=== PATIENT | male | born 1935 | race Caucasian/White ===

== ENCOUNTER 2016-12-08 19:33 | Emergency (ER) | payer MEDICARE, OTHER ==
--- NOTE | 2016-12-08 19:55 | ER Document Report ---
ED GI/ - General Chief Complaint: Abnormal Lab Results Stated Complaint: ABNORMAL XRAYS Time Seen by Provider: 12/08/16 19:37 Notes: Patient is an 81-year-old male, past medical history cholecystectomy, colonoscopy [address] Gregory, presents with intermittent lower abdominal pain that lasts a few seconds and occurs about every [address] Case's office and had a outpatient CT abdomen pelvis with IV and oral contrast. His CT showed sigmoid volvulus with distended gas-filled sigmoid colon. He last ate at 08:00 today and only takes a baby ASA every other day (last took yesterday morning). He had small watery bowel movements today. Denies current pain, nausea, vomiting, urinary symptoms, chest pain or shortness of breath. TRAVEL OUTSIDE OF THE [place] IN LAST 30 DAYS: No - Related Data Allergies/Adverse Reactions: No Known Allergies Allergy (Verified 12/03/15 08:05) Past Medical History - General Information source: Patient - Social History Smoking Status: Unknown if Ever Smoked Family History: Reviewed & Not Pertinent - Past Medical History Cardiac Medical History: Reports: Hx Hypercholesterolemia, Hx Hypertension - LISINOPRIL Denies: Hx Coronary Artery Disease, Hx Heart Attack Pulmonary Medical History: Denies: Hx Asthma, Hx Bronchitis, Hx COPD, Hx Pneumonia Neurological Medical History: Denies: Hx Cerebrovascular Accident, Hx Seizures GI Medical History: Denies: Hx Hepatitis, Hx Hiatal Hernia, Hx Ulcer Musculoskeltal Medical History: Denies Hx Arthritis Infectious Medical History: Denies: Hx Hepatitis Past Surgical History: Reports: Hx Cardiac Catheterization, Hx Cholecystectomy, Hx Urinary Tract Surgery - prostate. Denies: Hx Open Heart Surgery, Hx Pacemaker - Immunizations Hx Diphtheria, Pertussis, Tetanus Vaccination: Yes Hx Pneumococcal Vaccination: 06/12/12 Review of Systems - Review of Systems Notes: REVIEW OF SYSTEMS: CONSTITUTIONAL: -fevers, -chills EENT: -eye pain, -difficulty swallowing, -nasal congestion CARDIOVASCULAR:-chest pain, -syncope. RESPIRATORY: -cough, -SOB GASTROINTESTINAL: +lower abdominal pain, -nausea, -vomiting GENITOURINARY: -dysuria, -hematuria MUSCULOSKELETAL: -back pain, -neck pain SKIN: -rash or skin lesions. HEMATOLOGIC: -easy bruising or bleeding. LYMPHATIC: -swollen, enlarged glands. NEUROLOGICAL: -altered mental status or loss of consciousness, -headache, - neurologic symptoms PSYCHIATRIC: -anxiety, -depression. ALL OTHER SYSTEMS REVIEWED AND NEGATIVE. Physical Exam - Vital signs Vitals: Temp Pulse Resp BP Pulse Ox 97.7 F 62 20 177/75 H 100 12/08/16 19:56 12/08/16 19:56 12/08/16 19:56 12/08/16 19:56 12/08/16 19:56 - Notes Notes: PHYSICAL EXAMINATION: GENERAL: Well-appearing, well-nourished and in no acute distress. HEAD: Atraumatic, normocephalic. EYES: Pupils equal round and reactive to light, extraocular movements intact, sclera anicteric, conjunctiva are normal. ENT: nares patent, oropharynx clear without exudates. Moist mucous membranes. NECK: Normal range of motion, supple without lymphadenopathy LUNGS: Breath sounds clear to auscultation bilaterally and equal. No wheezes rales or rhonchi. HEART: Regular rate and rhythm without murmurs ABDOMEN: Soft, nontender, normoactive bowel sounds. No guarding, no rebound. No masses appreciated. EXTREMITIES: Normal range of motion, no pitting or edema. No cyanosis. NEUROLOGICAL: Cranial nerves grossly intact. Normal speech, normal gait. Normal sensory and motor exams. PSYCH: Normal mood, normal affect. SKIN: Warm, Dry, normal turgor, no rashes or lesions noted. Course - Re-evaluation Re-evalutation: 12/08/16 19:[address] Schulz about confirmed sigmoid volvulus on outpatient CAT scan. He is requesting a KUB. Pt not currently in any pain and does not feel nauseous. 12/08/16 20:[address] 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 12/08/16 20:[address] Schulz (Surgery) and recommends transfer for decompression by GI. Spoke to patient and he would like to be transferred to [facility]. Called [facility] and awaiting callback. 12/08/16 21:05 Spoke to [facility] Hospitalist and he is requesting a call to Surgeon to see if Surgery will take primary on patient. 12/08/16 21:[address] Horton (Surgeon front office manager at [facility]). He does not perform endoscopies. 12/08/16 22:[address] Nielsen (call center analyst GI doctor at [facility]) and discussed case. He is unsure if this patient is a candidate for decompressive endoscopy but he will speak to the hospitalist. 12/08/16 23:[address] Waters ([facility] Hospitalist) and he has accepted patient. GI team is assembling for emergent decompression. No ground crew for ~6-8 hours available. Due to concern for ischemic bowel, will arrange air transportation. Pt HD stable at this time. 12/09/16 00:05 NGT advaced 5 cm per x-ray. - Vital Signs Vital signs: Temp Pulse Resp BP Pulse Ox 97.7 F 62 19 126/68 H 95 12/08/16 19:56 12/08/16 19:56 12/09/16 00:01 12/09/16 00:01 12/09/16 00:01 - Laboratory Result Diagrams: 12/08/16 20:08 12/08/16 20:08 Laboratory results interpreted by me: 12/08/16 12/08/16 20:08 20:08 Plt Count 108 L Potassium 3.5 L BUN 22 H Creatinine 1.32 H Est GFR (Non-Af Amer) 52 L Total Protein 6.2 L - Diagnostic Test Radiology reviewed: Image reviewed, Reports reviewed Radiology results interpreted by me: CT A/P w/ IV and oral: Sigmoid volvulus with distended gas-filled sigmoid colon. Several sub-centimeter low-attenuation lesions in the liver, difficult to fully evaluate but presumably due to small cysts. Similar lesions in the spleen could be small cysts or hemangiomas. Cortical cyst in the kidneys. No other acute findings. Critical Care Note - Critical Care Note Total time excluding time spent on procedures (mins): 55 Discharge - Discharge Clinical Impression: Sigmoid volvulus Condition: Stable Disposition: [facility]
--- NOTE | 2016-12-08 20:07 | RADIOLOGY REPORT (SQ) ---
EXAM DESCRIPTION: CHEST SINGLE VIEW COMPLETED DATE/TIME: 12/08/2016 7:58 pm REASON FOR STUDY: pre-op COMPARISON: None. EXAM PARAMETERS: NUMBER OF VIEWS: One view. TECHNIQUE: Single frontal radiographic view of the chest acquired. RADIATION DOSE: NA LIMITATIONS: None. FINDINGS: LUNGS AND PLEURA: No opacities, masses or pneumothorax. No pleural effusion. MEDIASTINUM AND HILAR STRUCTURES: No masses. Contour normal. HEART AND VASCULAR STRUCTURES: Heart normal in size. Normal vasculature. BONES: No acute findings. HARDWARE: None in the chest. OTHER: No other significant finding. IMPRESSION: NO ACUTE RADIOGRAPHIC FINDING IN THE CHEST. TECHNICAL DOCUMENTATION: JOB ID: [id number]
[2016-12-08] MEDS ORDERED: NORMAL SALINE 1000 ML 1,000 ML IV PRN (20:18)
[2016-12-08 20:20] LABS: ABSOLUTE BASOPHILS # (AUTO) 0.1 10^3/uL (0.0-0.2); ABSOLUTE LYMPHOCYTES (AUTO) 1.1 10^3/uL (0.5-4.7); ABSOLUTE MONOCYTES (AUTO) 0.6 10^3/uL (0.1-1.4); ABSOLUTE NEUT (AUTO) 4.7 10^3/uL (1.7-8.2); BASOPHILS % (AUTO) 0.9 % (0-2); EOSINOPHILS % (AUTO) 0.6 % (0-6); HEMOGLOBIN 13.9 g/dL (13.5-17.0); HGB HCT DIFFERENCE -0.3; LYMPHOCYTES % (AUTO) 16.7 % (13-45); MEAN CORPUSCULAR HEMOGLOBIN 31.3 pg (27.0-33.4); MEAN CORPUSCULAR HGB CONC 33.1 g/dL (32.0-36.0); MEAN CORPUSCULAR VOLUME 95 fl (80-97); MONOCYTES % (AUTO) 8.8 % (3-13); RED BLOOD COUNT 4.44 10^6/uL (4.35-5.55); RED CELL DISTRIBUTION WIDTH 13.7 % (11.5-14.0); WHITE BLOOD COUNT 6.5 10^3/uL (4.0-10.5)
--- NOTE | 2016-12-08 20:25 | RADIOLOGY REPORT (SQ) ---
EXAM DESCRIPTION: KUB/ABDOMEN (SINGLE VIEW) COMPLETED DATE/TIME: 12/08/2016 8:17 pm REASON FOR STUDY: abdominal pain COMPARISON: None. NUMBER OF VIEWS: One view. TECHNIQUE: Supine radiographic image of the abdomen acquired. LIMITATIONS: None. FINDINGS: BOWEL GAS PATTERN: Markedly dilated sigmoid colon which extends into the upper abdomen. CALCIFICATIONS: No suspicious calcifications. SOFT TISSUES: No gross mass or suggestion of organomegaly. HARDWARE: Surgical clips. BONES: No acute fracture. No worrisome bone lesions. OTHER: No other significant finding. IMPRESSION: MARKEDLY DILATED SIGMOID COLON EXTENDING INTO THE UPPER ABDOMEN, CONSISTENT WITH SIGMOID VOLVULUS. TECHNICAL DOCUMENTATION: JOB ID: [id number] [employer]- All Rights Reserved
[2016-12-08] MEDS ORDERED: NORMAL SALINE 1000 ML 1,000 ML IV ONE (20:26)
[2016-12-08 20:28] LABS: PARTIAL THROMBOPLASTIN TIME 29.8 SEC (23.5-35.8); PROTHROMBIN TIME 13.3 SEC (11.4-15.4)
[2016-12-08 20:32] LABS: ALANINE AMINOTRANSFERASE 35 U/L (21-72); ALBUMIN 3.6 g/dL (3.5-5.0); ALKALINE PHOSPHATASE 89 U/L (38-126); ANION GAP 10 (5-19); ASPARTATE AMINO TRANSFERASE 28 U/L (17-59); BILIRUBIN,DIRECT 0.2 mg/dL (0.0-0.4); BILIRUBIN,TOTAL 0.6 mg/dL (0.2-1.3); BLOOD UREA NITROGEN 22 mg/dL (7-20); CALCIUM 9.5 mg/dL (8.4-10.2); CARBON DIOXIDE 28 mmol/L (22-30); CHLORIDE 103 mmol/L (98-107); CREATININE RESULT 1.32 mg/dL (0.52-1.25); GLUCOSE 97 mg/dL (75-110); POTASSIUM 3.5 mmol/L (3.6-5.0); SODIUM 140.7 mmol/L (137-145); TOTAL PROTEIN 6.2 g/dL (6.3-8.2)
--- NOTE | 2016-12-08 20:47 | PDOC CONSULTATION ---
History of Present Illness Patient complains of: Abdominal pain History of Present Illness: GUSTAVO HEARN is a 81 year old male who presents with 1 day history of crampy lower abdominal pain occurring every few minutes. The pain is severe. He had a diarrheal bowel movement in the emergency department. No emesis. No fever. In between the episodes of crampy pain he is free of pain. He has had a colonoscopy last year and had polyps removed at that time. Past Medical History Cardiac Medical History: Reports: Hyperlipidema, Hypertension - LISINOPRIL Denies: Coronary Artery Disease, Myocardial Infarction Pulmonary Medical History: Denies: Asthma, Bronchitis, Chronic Obstructive Pulmonary Disease (COPD), Pneumonia Neurological Medical History: Denies: Seizures GI Medical History: Denies: Hepatitis, Hiatal Hernia Musculoskeltal Medical History: Denies: Arthritis Hematology: Denies: Anemia, Sickle Cell Disease Past Surgical History Past Surgical History: Reports: Cardiac Catheterization, Cholecystectomy Denies: Pacemaker Social History Smoking Status: Unknown if Ever Smoked Family History Family History: Reviewed & Not Pertinent Parental Family History Reviewed: No Children Family History Reviewed: No Sibling(s) Family History Reviewed.: No Medication/Allergy Home Medications: Aspirin [Ecotrin 81 mg EC Tablet] 81 mg PO DAILY 07/19/12 Cyanocobalamin (Vitamin B-12) [Vitamin B-12 SL 1000 mcg Tablet] 1,000 mcg SL DAILY 07/19/12 Lisinopril [Prinivil 20 mg Tablet] 20 mg PO DAILY 07/19/12 Multivitamin [Multiple Vitamins] 1 each PO DAILY 07/19/12 Pravastatin Sodium [Pravachol] 40 mg PO DAILY 07/19/12 Amlodipine Besylate [Norvasc 5 mg Tablet] 5 mg PO DAILY 01/14/13 Tolterodine Tartrate [Detrol LA] 4 mg PO DAILY 01/14/13 Finasteride [Proscar 5 mg Tablet] 5 mg PO DAILY 12/02/15 Tamsulosin HCl [Flomax] 0.4 mg PO DAILY 12/02/15 Allergies/Adverse Reactions: No Known Allergies Allergy (Verified 12/03/15 08:05) Physical Exam Vital Signs: Temp Pulse Resp BP Pulse Ox 97.7 F 62 20 177/75 H 100 12/08/16 19:56 12/08/16 19:56 12/08/16 19:56 12/08/16 19:56 12/08/16 19:56 Intake & Output 12/07/16 12/08/16 12/09/16 06:59 06:59 06:59 Weight 79.379 kg General appearance: PRESENT: no acute distress, cooperative Respiratory exam: PRESENT: clear to auscultation annabel Cardiovascular exam: PRESENT: RRR GI/Abdominal exam: PRESENT: other - Soft, minimally distended, nontender to palpation. Results Laboratory Results: 12/08/16 20:08 12/08/16 20:08 12/08/16 12/08/16 20:08 20:08 WBC 6.5 RBC 4.44 Hgb 13.9 Hct 42.0 MCV 95 MCH 31.3 MCHC 33.1 RDW 13.7 Plt Count 108 L Seg Neutrophils % 73.0 Lymphocytes % 16.7 Monocytes % 8.8 Eosinophils % 0.6 Basophils % 0.9 Absolute Neutrophils 4.7 Absolute Lymphocytes 1.1 Absolute Monocytes 0.6 Absolute Eosinophils 0.0 Absolute Basophils 0.1 Sodium 140.7 Potassium 3.5 L Chloride 103 Carbon Dioxide 28 Anion Gap 10 BUN 22 H Creatinine 1.32 H Est GFR ( Amer) > 60 Est GFR (Non-Af Amer) 52 L Glucose 97 Calcium 9.5 Total Bilirubin 0.6 AST 28 ALT 35 Alkaline Phosphatase 89 Total Protein 6.2 L Albumin 3.6 Impressions: Chest X-Ray 12/08/16 19:37 IMPRESSION: NO ACUTE RADIOGRAPHIC FINDING IN THE CHEST. KUB X-Ray 12/08/16 19:56 IMPRESSION: MARKEDLY DILATED SIGMOID COLON EXTENDING INTO THE UPPER ABDOMEN, CONSISTENT WITH SIGMOID VOLVULUS. Assessment & Plan - Diagnosis (1) Sigmoid volvulus Is this a current diagnosis for this admission?: YesPlan: Sigmoid volvulus is evident on CT scan. However he has no evidence of intestinal compromise by exam and laboratory studies. Patient would benefit from detorsion endoscopically. Unfortunately we have no gastroenterology coverage at this hospital today. I do not have any experience in colonoscopic detorsion. I have had a long discussion with the patient concerning options. I feel strongly that endoscopic detorsion is his best option at this time. Discussed my recommendation with the ER physician who will arrange transfer.
--- NOTE | 2016-12-08 21:44 | EKG REPORT ---
SEVERITY:- NORMAL ECG - SINUS RHYTHM : Confirmed by: Keely Contreras 08-Dec-2016 21:43:50
[2016-12-08] MEDS ORDERED: MIDAZOLAM 2 MG/2 ML INJ IV ONE (22:23)
--- NOTE | 2016-12-08 23:11 | RADIOLOGY REPORT (SQ) ---
EXAM DESCRIPTION: KUB/ABDOMEN (SINGLE VIEW) COMPLETED DATE/TIME: 12/08/2016 11:01 pm REASON FOR STUDY: Ng tube placement COMPARISON: 12/08/2016. NUMBER OF VIEWS: One view. TECHNIQUE: Supine radiographic image of the abdomen acquired. LIMITATIONS: None. FINDINGS: BOWEL GAS PATTERN: Prominent stool in the colon. Gas-filled distended sigmoid colon exten ding into the upper abdomen. CALCIFICATIONS: No suspicious calcifications. SOFT TISSUES: No gross mass or suggestion of organomegaly. HARDWARE: Tip of the nasogastric tube at the level of the gastroesophageal junction. Side hole proba mina in the distal esophagus. BONES: No acute fracture. No worrisome bone lesions. OTHER: No other significant finding. IMPRESSION: 1. NASOGASTRIC TUBE DESCRIBED. ADVANCEMENT BY ANOTHER 5 CM WOULD IMPROVE POSITIONING. 2. NO CHANGE IN APPEARANCE OF THE ABDOMEN. CONTINUED FINDINGS CONCERNING FOR SIGMOID VOLVULUS. TECHNICAL DOCUMENTATION: JOB ID: [id number] [employer]- All Rights Reserved
[2016-12-09 00:05] VITALS: BP 126/68
== END 2016-12-09 01:07 | disposition short-term general hospital (02) ==
LOC: ER 19:33
DX: K56.2 Volvulus (principal); K76.9 Liver disease, unspecified; D73.9 Disease of spleen, unspecified; Q61.01 Congenital single renal cyst; I10 Essential (primary) hypertension; Z79.82 Long term (current) use of aspirin; Z90.49 Acquired absence of other specified parts of digestive tract; Z98.890 Other specified postprocedural states; R63.4 Abnormal weight loss; R68.81 Early satiety; R10.31 Right lower quadrant pain; R10.32 Left lower quadrant pain
CPT/HCPCS: 93005; 99291; 96361; 96374; 86900; 86901; 36415; 86850; 85025; 85610; 85730; 80053; 82565; 83605; 71010; 74000; 74177; 93010; J2250; J7030

== ENCOUNTER → 2016-12-08 | Outpatient (CLI) | payer MEDICARE, OTHER ==
--- NOTE | 2016-12-08 19:13 | RADIOLOGY REPORT (SQ) ---
EXAM DESCRIPTION: CT ABD/PELVIS WITH IV ORAL COMPLETED DATE/TIME: 12/08/2016 7:01 pm REASON FOR STUDY: ABN WEIGHT LOSS/EARLY SATIETY/RIGHT AND LEFT QUADRANT PAIN R63.4 ABNORMAL WEIGHT LOSS R68.81 EARLY SATIETY R10.31 RIGHT LOWER QUADRANT PAIN COMPARISON: None. TECHNIQUE: CT scan of the abdomen and pelvis performed using helical scanning technique with dynamic intravenous contrast injection. No oral contrast. Images reviewed with lung, soft tissue, and bone windows. Reconstructed coronal and sagittal MPR images reviewed. Delayed images for evaluation of the urinary system also acquired. All images stored on PACS. All CT scanners at this facility use dose modulation, iterative reconstruction, and/or weight based d osing when appropriate to reduce radiation dose to as low as reasonably achievable (ALARA). [facility]: Dose Right [facility]: CareDose [facility]: Dose Right [facility]: Teradose 4D [facility]: [employer] CONTRAST TYPE AND DOSE: contrast/concentration: Isovue 370.00 mg/ml; Total Contrast Delivered: 85.0 ml; Total Saline Delivered: 50.0 ml 85.2 Isovue 370- low osmolar. RENAL FUNCTION: Creatinine and 1.4. RADIATION DOSE: Up-to-date CT equipment and radiation dose reduction techniques were employed. CTDIv ol: 7.3 - 10.4 mGy. DLP: 1005 mGy-cm.. LIMITATIONS: None. FINDINGS: LOWER CHEST: No significant findings. No nodules or infiltrates. LIVER: Normal size. Multiple subcentimeter low-attenuation lesions. No dilated ducts. SPLEEN: Normal size. Small subcentimeter low-attenuation lesions. PANCREAS: No masses. No significant calcifications. No adjacent inflammation or peripancreatic fluid collections. Pancreatic duct not dilated. GALLBLADDER: Surgically absent. ADRENAL GLANDS: No significant masses or asymmetry. RIGHT KIDNEY AND URETER: Cortical cysts. No solid masses. No significant calcifications. No hydr onephrosis or hydroureter. LEFT KIDNEY AND URETER: Cortical cysts. No solid masses. No significant calcifications. No hydro nephrosis or hydroureter. AORTA AND VESSELS: No aneurysm. No dissection. Renal arteries, SMA, celiac without stenosis. RETROPERITONEUM: No retroperitoneal adenopathy, hemorrhage or masses. BOWEL AND PERITONEAL CAVITY: Gas-filled distended sigmoid colon. The distal sigmoid has a swirled ap pearance on axial imaging suspicious for volvulus (series 3, images 52- 64). No free fluid or free a ir. APPENDIX: Not visualized. PELVIS: No mass or free fluid. Normal bladder. ABDOMINAL WALL: No masses. No hernias. BONES: No significant or acute findings. OTHER: No other significant finding. IMPRESSION: 1. SIGMOID VOLVULUS WITH DISTENDED GAS-FILLED SIGMOID COLON. 2. SEVERAL SUBCENTIMETER LOW-ATTENUATION LESIONS IN THE LIVER, DIFFICULT TO FULLY EVALUATE BUT PRESUM ABLY DUE TO SMALL CYSTS. SIMILAR LESIONS IN THE SPLEEN COULD BE SMALL CYSTS OR HEMANGIOMAS. 3. CORTICAL CYSTS IN THE KIDNEYS. 4. NO OTHER ACUTE FINDINGS. TECHNICAL DOCUMENTATION: JOB ID: [id number] Quality ID # [id number]: Final reports with documentation of one or more dose reduction techniques (e.g., Au tomated exposure control, adjustment of the mA and/or kV according to patient size, use of iterative reconstruction technique) 2010 [employer]- All Rights Reserved
== END ==
LOC: RAD 16:01
PROVIDERS: ATTEND Internal Medicine Gastroenterology
DX: R63.4 Abnormal weight loss (principal); R68.81 Early satiety; R10.31 Right lower quadrant pain; R10.32 Left lower quadrant pain; K56.2 Volvulus
CPT/HCPCS: 74177; 82565

== ENCOUNTER 2016-12-12 14:01 | Emergency (ER) | payer MEDICARE, OTHER ==
--- NOTE | 2016-12-12 15:23 | ER Document Report ---
ED Medical Screen (RME) - General Chief Complaint: Abdominal Pain Stated Complaint: ABDOMINAL PAIN Time Seen by Provider: 12/12/16 15:17 Notes: Patient is a pleasant 81-year-old male who presents with several hours of lower abdominal pain. He was seen in the ER 4 days ago was transferred to [facility] for endoscopic detorsion of a sigmoid volvulus. He was feeling much better and had a normal CAT scan the next day and was discharged. Patient says this feels less intense and he has not had a bowel movement for 2 days. He denies urinary symptoms, fevers, nausea, vomiting or rash. PE: mild LLQ tenderness, normal bowel sounds I have greeted and performed a rapid initial assessment of this patient. A comprehensive ED assessment and evaluation of the patient, analysis of test results and completion of the medical decision making process will be conducted by additional ED providers. TRAVEL OUTSIDE OF THE [place] IN LAST 30 DAYS: No - Related Data Allergies/Adverse Reactions: No Known Allergies Allergy (Verified 12/12/16 14:07) Past Medical History - Past Medical History Cardiac Medical History: Reports: Hx Hypercholesterolemia, Hx Hypertension - LISINOPRIL Denies: Hx Coronary Artery Disease, Hx Heart Attack Pulmonary Medical History: Denies: Hx Asthma, Hx Bronchitis, Hx COPD, Hx Pneumonia Neurological Medical History: Denies: Hx Cerebrovascular Accident, Hx Seizures Renal/ Medical History: Denies: Hx Peritoneal Dialysis GI Medical History: Denies: Hx Hepatitis, Hx Hiatal Hernia, Hx Ulcer Musculoskeltal Medical History: Denies Hx Arthritis Infectious Medical History: Denies: Hx Hepatitis Past Surgical History: Reports: Hx Cardiac Catheterization, Hx Cholecystectomy, Hx Urinary Tract Surgery - prostate. Denies: Hx Open Heart Surgery, Hx Pacemaker - Immunizations Hx Diphtheria, Pertussis, Tetanus Vaccination: Yes Physical Exam - Vital signs Vitals: Temp Pulse Resp BP Pulse Ox 98.3 F 82 12 165/76 H 95 12/12/16 14:07 12/12/16 14:12/12/16 14:12/12/16 14:12/12/16 14:07 Course - Vital Signs Vital signs: Temp Pulse Resp BP Pulse Ox 98.3 F 82 12 165/76 H 95 12/12/16 14:07 12/12/16 14:07 12/12/16 14:07 12/12/16 14:07 12/12/16 14:07
[2016-12-12 15:59] LABS: ABSOLUTE LYMPHOCYTES (AUTO) 0.9 10^3/uL (0.5-4.7); ABSOLUTE MONOCYTES (AUTO) 0.5 10^3/uL (0.1-1.4); ABSOLUTE NEUT (AUTO) 4.8 10^3/uL (1.7-8.2); BASOPHILS % (AUTO) 0.5 % (0-2); EOSINOPHILS % (AUTO) 0.5 % (0-6); HEMATOCRIT 44.6 % (37.9-51.0); HEMOGLOBIN 14.8 g/dL (13.5-17.0); HGB HCT DIFFERENCE -0.2; LYMPHOCYTES % (AUTO) 13.9 % (13-45); MEAN CORPUSCULAR HEMOGLOBIN 31.1 pg (27.0-33.4); MEAN CORPUSCULAR HGB CONC 33.1 g/dL (32.0-36.0); MEAN CORPUSCULAR VOLUME 94 fl (80-97); MONOCYTES % (AUTO) 8.2 % (3-13); RED BLOOD COUNT 4.74 10^6/uL (4.35-5.55); RED CELL DISTRIBUTION WIDTH 13.9 % (11.5-14.0); SEGMENTED NEUTROPHILS % (AUTO) 76.9 % (42-78); WHITE BLOOD COUNT 6.3 10^3/uL (4.0-10.5)
[2016-12-12 16:13] LABS: ALANINE AMINOTRANSFERASE 51 U/L (21-72); ALBUMIN 3.6 g/dL (3.5-5.0); ALKALINE PHOSPHATASE 103 U/L (38-126); ANION GAP 7 (5-19); ASPARTATE AMINO TRANSFERASE 21 U/L (17-59); BILIRUBIN,DIRECT 0.3 mg/dL (0.0-0.4); BILIRUBIN,TOTAL 0.6 mg/dL (0.2-1.3); BLOOD UREA NITROGEN 15 mg/dL (7-20); CALCIUM 9.4 mg/dL (8.4-10.2); CARBON DIOXIDE 33 mmol/L (22-30); CHLORIDE 103 mmol/L (98-107); CREATININE RESULT 1.13 mg/dL (0.52-1.25); GLUCOSE 107 mg/dL (75-110); POTASSIUM 3.9 mmol/L (3.6-5.0); SODIUM 143.1 mmol/L (137-145); TOTAL PROTEIN 6.3 g/dL (6.3-8.2)
--- NOTE | 2016-12-12 16:24 | RADIOLOGY REPORT (SQ) ---
EXAM DESCRIPTION: KUB/ABDOMEN (SINGLE VIEW) COMPLETED DATE/TIME: 12/12/2016 4:06 pm REASON FOR STUDY: lower abdominal pain COMPARISON: 12/08/2016 NUMBER OF VIEWS: One view. TECHNIQUE: Supine radiographic image of the abdomen acquired. LIMITATIONS: None. FINDINGS: Oral contrast in the ascending colon, descending colon and rectosigmoid colon. Cecum not dilated. Persistent dilated loop of ahaustral bowel in the mid lower abdomen. IMPRESSION: Intermittent sigmoid volvulus. No high-grade obstruction.
--- NOTE | 2016-12-12 16:27 | ER Document Report ---
ED GI/ - General Chief Complaint: Abdominal Pain Stated Complaint: ABDOMINAL PAIN Time Seen by Provider: 12/12/16 15:17 Mode of Arrival: Ambulatory Information source: Patient Notes: 81-year-old male who suffers from constipation is complaining of low abdominal crampy intermittent pain 3/5 since 7:00 this morning. He was seen and sent to [facility] on December 09 with a volvulus., Dr. Nielsen did a colonoscopy on Monday and his pain resolved. They repeated a CT scan Monday afternoon which showed resolution and was sent home Monday. He started MiraLAX 1 capful this morning. no nausea Or vomiting. The pain is much less than , which was sharp, constant 5/5. No fever. TRAVEL OUTSIDE OF THE [place] IN LAST 30 DAYS: No - Related Data Allergies/Adverse Reactions: No Known Allergies Allergy (Verified 12/12/16 14:07) Past Medical History - General Information source: Patient - Social History Smoking Status: Unknown if Ever Smoked Frequency of alcohol use: None Drug Abuse: None Lives with: Spouse/Significant other Family History: Reviewed & Not Pertinent Patient has suicidal ideation: No Patient has homicidal ideation: No - Past Medical History Cardiac Medical History: Reports: Hx Hypercholesterolemia, Hx Hypertension - LISINOPRIL Renal/ Medical History: Denies: Hx Peritoneal Dialysis Past Surgical History: Reports: Hx Cardiac Catheterization, Hx Cholecystectomy, Hx Urinary Tract Surgery - prostate - Immunizations Hx Diphtheria, Pertussis, Tetanus Vaccination: Yes Hx Pneumococcal Vaccination: 06/12/12 Review of Systems - Review of Systems Constitutional: No symptoms reported EENT: No symptoms reported Cardiovascular: No symptoms reported Respiratory: No symptoms reported Gastrointestinal: See HPI Genitourinary: No symptoms reported Male Genitourinary: No symptoms reported Musculoskeletal: No symptoms reported Skin: No symptoms reported Hematologic/Lymphatic: No symptoms reported Neurological/Psychological: No symptoms reported Physical Exam - Vital signs Vitals: Temp Pulse Resp BP Pulse Ox 98.3 F 82 12 165/76 H 95 12/12/16 14:07 12/12/16 14:07 12/12/16 14:07 12/12/16 14:07 12/12/16 14:07 Interpretation: Normal - General General appearance: Appears well, Alert - HEENT Head: Normocephalic, Atraumatic Eyes: Normal Pupils: PERRL Neck: Supple. No: Lymphadenopathy - Respiratory Respiratory status: No respiratory distress Chest status: Nontender Breath sounds: Normal Chest palpation: Normal - Cardiovascular Rhythm: Regular Heart sounds: Normal auscultation Murmur: No - Abdominal Inspection: Normal Distension: No distension Bowel sounds: Normal Tenderness: Nontender. No: Tender Organomegaly: No organomegaly. No: Hepatomegaly, Splenomegaly - Back Back: Normal, Nontender. No: CVA tenderness - Extremities General upper extremity: Normal inspection, Nontender, Normal color, Normal ROM , Normal temperature General lower extremity: Normal inspection, Nontender, Normal color, Normal ROM , Normal temperature, Normal weight bearing. No: Kady's sign - Neurological Neuro grossly intact: Yes Cognition: Normal Orientation: AAOx4 Brian Coma Scale Eye Opening: Spontaneous Doran Coma Scale Verbal: Oriented Doran Coma Scale Motor: Obeys Commands Brian Coma Scale Total: 15 Speech: Normal Motor strength normal: LUE, RUE, LLE, RLE Sensory: Normal - Psychological Associated symptoms: Normal affect, Normal mood - Skin Skin Temperature: Warm Skin Moisture: Dry Skin Color: Normal Course - Re-evaluation Re-evalutation: 12/12/16 16:[address] Braden when he wrote intermittent sigmoid volvulus on the KUB. He recommended getting a prone KUB to see if the dilated loop of bowel resolved. If it does resolve on the prone KUB it indicates there is no sigmoid volvulus. If the dilated loop persists repeat a noncontrasted CT of the abdomen. 12/12/16 17:45 prone KUB still indicates sigmoid colon volvulus per dr. jesus radiologist. I called him and he states that the non contrast CT rec by dr. Braden would not be helpful at this point. Consult dr. Mathew. 12/12/16 18:19 dr. mathew recommends consulting with Dr. Gregory. Dr. Gregory will see the patient in the emergency department. 12/12/16 19:00 Dr. Gregory is seen the patient and advised that he will need a resection but the patient and his do not want to have that tonight. He instructed the patient to be on a liquid diet, continue MiraLAX, and start Colace twice a day, patient understands to return to the emergency room if the pain gets worse, any vomiting, any fever. - Vital Signs Vital signs: Temp Pulse Resp BP Pulse Ox 98.3 F 82 12 165/76 H 95 12/12/16 14:07 12/12/16 14:07 12/12/16 14:07 12/12/16 14:07 12/12/16 14:07 - Laboratory Result Diagrams: 12/12/16 15:44 12/12/16 15:44 Laboratory results interpreted by me: 12/12/16 12/12/16 15:44 15:44 Plt Count 128 L Carbon Dioxide 33 H Discharge - Discharge Clinical Impression: Volvulus of sigmoid colon Condition: Stable Disposition: HOME, SELF-CARE Instructions: Abdominal Pain ([facility]) Additional Instructions: Return to the emergency room if increased pain, vomiting, fever, concerns Schedule follow-up appointment with Dr. Gregory for surgical bowel resection Liquid diet MiraLAX capful with full glass of water daily Softener Colace 100 mg twice a day Please complete the patient satisfaction survey if you get one, and return it.. If you do not receive a survey, then you can go to the [facility] website, [email or web address] and place your comments about your very good care. Thank you very much. It was a pleasure being your medical provider today. Prescriptions: Docusate Sodium [Colace 100 mg Capsule] 100 mg PO BID #60 capsule Polyethylene Glycol 3350 [Miralax] 1 cap PO DAILY #1 bot Referrals: JUAN A GREGORY MD [ACTIVE STAFF] - Follow up as needed
[2016-12-12 16:45] LABS: APPEARANCE,URINE SLIGHTLY-CLOUDY; BILIRUBIN,URINE NEGATIVE (NEGATIVE); GLUCOSE, URINE NEGATIVE (NEGATIVE); KETONES,URINE NEGATIVE (NEGATIVE); LEUKOCYTE ESTERASE,URINE NEGATIVE (NEGATIVE); NITRITE,URINE NEGATIVE (NEGATIVE); PROTEIN,URINE NEGATIVE (NEGATIVE); UROBILINOGEN,URINE NEGATIVE mg/dL (<2.0)
--- NOTE | 2016-12-12 17:12 | RADIOLOGY REPORT (SQ) ---
EXAM DESCRIPTION: KUB/ABDOMEN (SINGLE VIEW) COMPLETED DATE/TIME: 12/12/2016 4:55 pm REASON FOR STUDY: prone view per dr. carrera, ? resolution COMPARISON: None. NUMBER OF VIEWS: 12/12/2016 12/08/2016 TECHNIQUE: Supine radiographic image of the abdomen acquired. LIMITATIONS: None. FINDINGS: BOWEL GAS PATTERN: There is a dilated loop of sigmoid colon. Contrast is seen in a normal caliber transverse colon and in the distal sigmoid colon. CALCIFICATIONS: No suspicious calcifications. SOFT TISSUES: No gross mass or suggestion of organomegaly. HARDWARE: None in the abdomen. BONES: No acute fracture. No worrisome bone lesions. OTHER: No other significant finding. IMPRESSION: The appearance continues to suggest sigmoid volvulus. The proximal colon is not signifi cantly dilated, suggesting that this does not represent a high-grade obstruction. TECHNICAL DOCUMENTATION: JOB ID: [id number] [employer]- All Rights Reserved
[2016-12-12] MEDS ORDERED: DOCUSATE SODIUM 100 MG CAPSULE PO ONE (19:03)
[2016-12-12 19:29] VITALS: BP 176/79
--- NOTE | 2016-12-12 19:48 | CONSULTATION REPORT E ---
Consultation Report NAME: GUSTAVO HEARN : 1935 AGE: 81Y DATE: 12/12/2016 TO: JUAN A GREGORY M.D. FROM: Donna DOTY Requesting Physician CHIEF COMPLAINT: Sigmoid volvulus. REPORT OF CONSULTATION: The patient is an 81-year-old white male with a history of multiple previous colonoscopies, who was seen at our emergency department at [facility] approximately 3 days ago complaining of crampy abdominal pain, intermittent stools, diarrhea. He was found by CT scan of the abdomen and pelvis as well as conventional x-ray imaging to have a partial sigmoid volvulus without an acute abdomen. He was sent from [facility] to [facility] where he underwent colonoscopic decompression by Dr. Nielsen, technical stenographer. He was sent home Monday morning after imaging showed clinical improvement in his volvulus. He was started on MiraLAX and did well for several days until this morning. He started to have crampy abdominal pain and decreased stool. He was seen in the emergency department where he was evaluated and found to have evidence of persisting of sigmoid colonic dilatation without evidence of high-grade obstruction. Surgery was consulted. Past medical and surgical history can be found in his permanent record. ALLERGIES: None. PAST SURGICAL HISTORY: Significant for: 1. Cardiac catheterization. 2. Cholecystectomy. REVIEW OF SYSTEMS: As per HPI. All other systems unremarkable. PHYSICAL EXAMINATION: VITAL SIGNS: Stable. GENERAL: The patient is in no acute distress. HEAD: Eyes without icterus. NECK: No adenopathy. LUNGS: Diminished at the bases bilaterally. HEART: Without murmur or gallop. ABDOMEN: Minimally distended. No peritoneal signs. No rigidity. No tympany. RECTAL: Exam not performed. DIAGNOSTIC DATA: Imaging studies reviewed as stated above. Degree of colonic distention diminished compared to last Monday prior to colonoscopic decompression. 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 RECOMMENDATIONS: 1. The patient does not need emergent intervention tonight. 2. I reviewed the pathoanatomy with the patient and his . Given the patient's high functional status and highly dysfunctional sigmoid colon now with a volvulus, I believe he would benefit from interval sigmoid colectomy. 3. I encouraged the patient to stay on full liquids, MiraLAX, and Colace 100 mg p.o. b.i.d. 4. The patient can follow up with Dr. Gregory or Hafsa Massey per his wishes to discuss definitive management, mainly a sigmoid colon resection. 5. If the patient develops acute abdominal pain, he is to come to the emergency department for immediate intervention as he would likely require emergent sigmoid colectomy and colostomy; all of the above explained to the patient. I believe he and his understand and agree to proceed. DICTATING PHYSICIAN: JUAN A GREGORY M.D. [id number] PHY#: [id number] ID: [id number] JOB#: [id number] ACCT: [id number] cc:JUAN A GREGORY M.D. >
== END 2016-12-12 19:31 | disposition home or self-care (01) ==
LOC: ER 14:01
DX: K56.2 Volvulus (principal); R10.30 Lower abdominal pain, unspecified; I10 Essential (primary) hypertension; E78.00 Pure hypercholesterolemia, unspecified; Z90.49 Acquired absence of other specified parts of digestive tract
CPT/HCPCS: 99284; 36415; 85025; 80053; 81001; 74000; A9270

== ENCOUNTER 2016-12-19 06:53 | Inpatient (IN) | payer MEDICARE, OTHER ==
[~2016-12-19 06:53] MED LIST: AMPICILLIN SODIUM/SULBACTAM NA 3 GM in NORMAL SALINE 100 ML IV PRN; LACTATED RINGERS 1000 ML IV PRN
[2016-12-19] MEDS ORDERED: BUPIVACAINE HCL 0.25 % INJ/PF (2.5 MG/1 ML) 30 ML VIAL ONE (07:20)
[2016-12-19] MEDS ORDERED: BUPIVACAINE INJ/PF LIPOSOME/PF 266 MG/20 ML SDV ONE (07:21)
[2016-12-19] MEDS ORDERED: FENTANYL CITRATE INJ/PF 250 MCG/5 ML AMPULE ONE (09:35)
[2016-12-19] MEDS ORDERED: MIDAZOLAM 2 MG/2 ML INJ ONE (09:35)
[2016-12-19] MEDS ORDERED: PROPOFOL INJ 200 MG/20 ML VIAL IV ONE (09:36)
[2016-12-19] MEDS ORDERED: IBUPROFEN INJ 800 MG/8 ML VIAL IV ONE (11:26)
[2016-12-19] MEDS ORDERED: MORPHINE SULFATE 10 MG/ML INJ ONE (11:27)
[2016-12-19] MEDS ORDERED: ONDANSETRON HCL INJ/PF 4 MG/2 ML SDV IV PRN (13:21)
--- NOTE | 2016-12-19 13:41 | Operative Report ---
Operative Report DATE OF SURGERY: 12/19/16 PREOPERATIVE DIAGNOSIS: 1. Sigmoid volvulus, chronic, with acute decompensation POSTOPERATIVE DIAGNOSIS: 1. Acute sigmoid volvulus with ischemia. 2. 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 3. Granular nodules of splenic capsule OPERATION: 1. Exploratory laparotomy. 2. Total abdominal colectomy, open, with splenic flexure mobilization and takedown, and hepatic flexure mobilization and takedown. 3. Ileostomy. 4. Splenic capsule biopsy SURGEON: JUAN A MAZARIEGOS BEAUTY SPECIALIST: MEKHI GALICIA ANESTHESIA: GA TISSUE REMOVED OR ALTERED: Total abdominal colon and splenic capsule biopsy COMPLICATIONS: None ESTIMATED BLOOD LOSS: 200 cc INTRAOPERATIVE FINDINGS: See below PROCEDURE: The patient was taken from ambulatory surgery preop holding area to the main operating room where general anesthesia was induced. A Ames catheter was inserted with minimal amount of dark urine. The abdomen was exposed, prepped and draped in sterile fashion with the arms abducted. Surgical plan surgical timeout were conducted The initial strategy was to perform open sigmoid colectomy, with possible colostomy versus primary anastomosis pending intraoperative findings. The abdomen was opened for standard midline incision above and below the umbilicus. Immediately upon entering the peritoneal cavity, the massively distended sigmoid colon was exteriorized from the peritoneal cavity. The colon was extremely dilated, volvulized nearly 270, with ischemic changes. We immediately detorsed the colon, then identified a suitable site for transection of the sigmoid colon proximally which was dilated but not massively so, and chose to divide the sigmoid colon with a FRITZ-75 blue load stapler. The sigmoid mesocolon was taken down between clamps, then a suitable site for transection of the upper rectum was chosen and this was cleared by electrocautery and then a second firing of the FRITZ 75 stapler was used to transect the upper rectum from the lower sigmoid colon. The specimen was passed off to pathology after taking photos on the back table. We ligated all 4 pedicles with 0 Vicryl suture. We now established Bookwalter retractor for optimal visualization of the peritoneal cavity and extended our midline incision for the towards the xiphoid process. This now revealed negative dilation of the right and transverse colon. In this 81-year-old male with toxic sigmoid colon, and megacolon of the right and transverse colon, I felt that a total colectomy was in his best interest. The colon was taken out in a continuous fashion, but completely intact. We mobilized the transverse colon off of the gastrocolic omentum with electrocautery, and LigaSure device. The hepatic flexure was taken down under direct visualization using similar devices. The right colon was taken off of the white line of Toldt which was very distorted due to the distention. We then found a suitable site for division of the terminal ileum just prior to the ileocecal valve and the transection was performed with the third firing of the FRITZ 75 stapler. We then took down the right medial colon between clamps, and 0 Vicryl ties as well as LigaSure energy device. We now began mobilizing the transverse colon taking again it close the bowel wall. We repositioned graspers frequently to optimize exposure. I now mobilized the sigmoid colon opening up the white line of Toldt and taking it all the way up the descending colon. Of note there was no evidence of tumor , stricture or perforation. However even the descending colon was dilated but nowhere near as much as the transverse colon and right colon. The splenic flexure was taken down in a similar fashion and now the final attachments between the gastrocolic omentum and the splenic flexure were taken down. The transverse and left mesocolon was divided between clamps, and 0 Vicryl ties. The final specimen was passed off to the back table photographed and then sent to pathology intact without spillage. There was extensive nodularity on the surface of the splenic capsule. There was a minimal changes to the liver capsule but the splenic capsular findings were more prominent and so a very small biopsy was taken using a 15 blade and pickups. This was a white speckled granulomatous like process. Bleeding was negligible We confirmed excellent position of the nasogastric tube with anesthesia and that was secured. The findings were significant for previous cholecystectomy. Small bowel was in excellent shape without any evidence of significant distention. We now turned our attention to the pelvis. The rectal stump was extremely dilated and there were 2 areas of whitish discoloration consistent with ischemia. The rest of the staple line and surrounding tissue appeared viable Dr. Gregory scrubbed out and came down from below and did a rectal exam which showed some narrowing of the anal sphincter. Eventually was able to it introduced to adult fingers into the anorectal canal. There was a significant amount of heavy particulate stool which we irrigated out with multiple washings using a Alia syringe and suction. I was now able to perform rigid sigmoidoscopy and we found the length of the rectal stump to be approximately 20 cm. However careful examination of the anterior rectal stump revealed moderate ulceration with some whitish plaque. The serosal side seemed to be improving in color during the course of the operation, however is concerned about the mucosal side and this occupied an area of approximately 2 x 4 cm. Anatomically the staple line was above the peritoneal reflection by several centimeters. I carefully considered performing a stapled ilio-rectal anastomosis but in this 81-year-old male, now sick with a toxic megacolon, and a questionable area of viability to the rectal stump, I felt that a ileostomy would be safer and so this was accomplished. A suitable site for creation of the ileostomy was chosen in the right anterior abdominal wall. Skin was opened up for the appropriate size ileostomy using a Estelita clamp and electrocautery. The anterior and posterior rectus sheath was divided with the cautery and 2 index fingers were used to spread the abdominal wall musculature. The terminal ileum was brought up to the anterior abdominal wall, and I closed the lateral defect by approximating the retroperitoneum and terminal ileal mesentery to the anterior and lateral abdominal wall so as to reduce the risk of herniation or volvulus around the ileostomy. The increased space of the peritoneal cavity generated by the evacuation of the entire colon was the reason for this pexing of the mesentery to the abdominal wall. Sponge and needle counts are correct. Bleeding was negligible. A drain was not felt to be indicated. The abdominal wall was closed with 2 double-stranded #1 PDS sutures, clemente, and the ileostomy was matured after opening it up with cautery, suctioning out significant amount of small bowel contents in particular matter, and affixing the mucosa to the dermis with multiple 4-0 Vicryl sutures. Appropriate sized appliance and bag were applied. Postop procedure well, taken to the recovery room in stable condition, intubated. The physician lab assistant, Ms. Galicia, provided assistance during this case by: Assisting , retracting tissue, instillation of local anesthesia and closure of skin incisions.
[2016-12-19] MEDS ORDERED: PROPOFOL 100 ML IV ONE (13:44)
[2016-12-19] MEDS ORDERED: PHENYLEPHRINE HCL INJ/PF 10 MG/1 ML SDV ONE (14:39)
[2016-12-19] MEDS ORDERED: ONDANSETRON HCL INJ/PF 4 MG/2 ML SDV ONE (14:39)
[2016-12-19] MEDS ORDERED: ROCURONIUM BROMIDE INJ 50 MG/5 ML VIAL IV ONE (14:39)
[2016-12-19] MEDS ORDERED: SUCCINYLCHOLINE CHLORIDE INJ 200 MG/10 ML VIAL ONE (14:39)
[2016-12-19] MEDS ORDERED: GLYCOPYRROLATE INJ 0.4 MG/2 ML VIAL ONE (14:39)
[2016-12-19] MEDS ORDERED: METOCLOPRAMIDE HCL INJ/PF 10 MG/2 ML SDV ONE (14:39)
[2016-12-19] MEDS ORDERED: LIDOCAINE 2% INJ-PF (20 MG/ML) 10 ML AMPUL ONE (14:39)
[2016-12-19] MEDS ORDERED: NORMAL SALINE 1000 ML 1,000 ML IV ONE (15:53)
--- NOTE | 2016-12-19 16:31 | RADIOLOGY REPORT (SQ) ---
EXAM DESCRIPTION: CHEST SINGLE VIEW COMPLETED DATE/TIME: 12/19/2016 4:16 pm REASON FOR STUDY: post ET tube COMPARISON: 12/08/2016. EXAM PARAMETERS: NUMBER OF VIEWS: One view. TECHNIQUE: Single frontal radiographic view of the chest acquired. RADIATION DOSE: NA LIMITATIONS: None. FINDINGS: LUNGS AND PLEURA: Faint atelectasis in the right base. Atelectasis versus infiltrate in t he left base. No masses or pneumothorax. No pleural effusion. MEDIASTINUM AND HILAR STRUCTURES: No masses. Contour normal. HEART AND VASCULAR STRUCTURES: Heart normal in size. Normal vasculature. BONES: No acute findings. HARDWARE: Endotracheal tube with the tip located 6 cm proximal to the sammy. Nasogastric tube with the tip in the stomach. OTHER: No other significant finding. IMPRESSION: 1. HARDWARE APPEARS TO BE IN SATISFACTORY POSITION. 2. FAINT ATELECTASIS IN THE RIGHT BASE. ATELECTASIS VERSUS INFILTRATE IN THE LEFT BASE. TECHNICAL DOCUMENTATION: JOB ID: [id number]
[2016-12-19] MEDS ORDERED: NORMAL SALINE 500 ML IV ONE ×2 (17:00→23:15)
[2016-12-19] MEDS: AMPICILLIN SODIUM/SULBACTAM NA 3 GM in NORMAL SALINE 100 ML IV SCH (17:22)
[2016-12-19] MEDS ORDERED: AMPICILLIN SODIUM/SULBACTAM NA 3 GM in NORMAL SALINE 100 ML IV SCH (18:00)
[2016-12-19] MEDS: DEXTROSE 5%-LACTATED RINGERS 1,000 ML IV PRN (21:13)
[2016-12-20] MEDS ORDERED: DOPAMINE HCL/DEXTROSE 5%-WATER 800 MG/250 ML RTUINJ IV ONE (00:46)
[2016-12-20] MEDS: PROPOFOL 100 ML IV PRN ×2 (01:05→15:59)
[2016-12-20] MEDS ORDERED: DOPAMINE HCL 800 MG/D5W 250 ML IV PRN (01:13)
[2016-12-20] MEDS ORDERED: NOREPINEPHRINE BITARTRATE INJ/PF 4 MG/4 ML SDV IV ONE ×2 (01:28→06:53)
[2016-12-20] MEDS: AMPICILLIN SODIUM/SULBACTAM NA 3 GM in NORMAL SALINE 100 ML IV SCH ×2 (01:47→09:44)
[2016-12-20 02:08] LABS: ANION GAP 6 (5-19); BLOOD UREA NITROGEN 53 mg/dL (7-20); CALCIUM 7.9 mg/dL (8.4-10.2); CARBON DIOXIDE 30 mmol/L (22-30); CHLORIDE 104 mmol/L (98-107); CREATININE RESULT 1.97 mg/dL (0.52-1.25); GLUCOSE 138 mg/dL (75-110); MAGNESIUM 1.9 mg/dL (1.6-2.3); POTASSIUM 3.3 mmol/L (3.6-5.0); SODIUM 139.7 mmol/L (137-145)
[2016-12-20] MEDS ORDERED: NORMAL SALINE 1000 ML 1,000 ML IV ONE (02:30)
[2016-12-20] MEDS ORDERED: POTASSI CL 20 MEQ/50 ML RIDER 20 MEQ/50 ML RTUPB IV ONE (02:37)
[2016-12-20] MEDS: POTASSIUM CHLORIDE 20 MEQ/50 ML RTU IV SCH ×3 (03:07→06:56)
[2016-12-20] MEDS: DEXTROSE 5%-LACTATED RINGERS 1,000 ML IV PRN ×5 (04:05→23:44)
[2016-12-20] MEDS: DEXTROSE 5%-WATER 250 ML with NOREPINEPHRINE BITARTRATE 4 MG IV PRN ×10 (06:55→23:43)
[2016-12-20 07:29] LABS: HEMATOCRIT 39.1 % (37.9-51.0); HEMOGLOBIN 12.9 g/dL (13.5-17.0); HGB HCT DIFFERENCE -0.4; MEAN CORPUSCULAR HEMOGLOBIN 31.5 pg (27.0-33.4); MEAN CORPUSCULAR HGB CONC 32.9 g/dL (32.0-36.0); MEAN CORPUSCULAR VOLUME 96 fl (80-97); RED BLOOD COUNT 4.08 10^6/uL (4.35-5.55); RED CELL DISTRIBUTION WIDTH 14.3 % (11.5-14.0); WHITE BLOOD COUNT 23.5 10^3/uL (4.0-10.5)
[2016-12-20 07:39] LABS: ANION GAP 5 (5-19); BLOOD UREA NITROGEN 46 mg/dL (7-20); CALCIUM 8.1 mg/dL (8.4-10.2); CARBON DIOXIDE 27 mmol/L (22-30); CHLORIDE 106 mmol/L (98-107); CREATININE RESULT 1.84 mg/dL (0.52-1.25); GLUCOSE 176 mg/dL (75-110); POTASSIUM 3.6 mmol/L (3.6-5.0); SODIUM 138.3 mmol/L (137-145); TRIGLYCERIDES 41 mg/dL (<150)
--- NOTE | 2016-12-20 09:47 | PDOC CONSULTATION ---
Consultation Consult Date: 12/20/16 Attending physician:: JUAN A CUEVA Consult reason:: Renal insufficiency, hypertension and hyperlipidemia. History of Present Illness Admission Date/PCP: 12/19/16 06:53 ANJALI AVENDANO MD Patient complains of: Abdominal pain History of Present Illness: GUSTAVO HEARN is a 81 year old male, with history of hypertension, hyperlipidemia, atherosclerotic vascular disease has been dealing with abdominal pain for several days. The patient was healthy according to the spouse who is at bedside. Patient is intubated, on diprivan drip, and unable to give information. Unobtainable from the patient therefore family provided most of the history. Patient was doing well playing golf up until this weekend patient started to develop recurrence of abdominal pain where patient had a few visits in the emergency room in the past where a CT scan showed sigmoid volvulus with gaseous distention of the colon, and patient had endoscopic decompression in [facility] [place]. Patient is being followed by surgical service and as the patient's recurrent abdominal pain the patient occurred was advised to go to the hospital, and eventually underwent exploratory laparotomy. 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 Patient had a total colectomy with ileostomy placement and splenic biopsy. Patient was maintained on mechanical ventilator postoperatively, was hypotensive requiring vasopressors including dopamine and Levophed. Currently he is only on Levophed. Patient was given 9- 10 L of IV fluid resuscitation. There is no respiratory distress or discomfort noted. Patient's creatinine was noted to be elevated, consultation was made for evaluation and follow-up. Past Medical History Cardiac Medical History: Reports: Hyperlipidema - ON MEDS, Hypertension - ON MEDS, Other - Atherosclerotic vascular disease Denies: Atrial Fibrillation, Congestive Heart Failure, Coronary Artery Disease, Myocardial Infarction, Peripheral Vascular Disease, Heart Murmur Pulmonary Medical History: Neurological Medical History: Renal/ Medical History: Reports: Other - BPH Denies: End Stage Renal Disease Malignancy Medical History: GI Medical History: Reports: Gastroesophageal Reflux Disease Denies: Crohn's Disease, Hepatitis, Hiatal Hernia Musculoskeltal Medical History: Hematology: Past Surgical History Past Surgical History: Reports: Cardiac Catheterization, Carotid Endarterectomy - Right, Cholecystectomy, Other - Exploratory laparotomy with total colectomy and splenic biopsy, Denies: Appendectomy, Colostomy, Coronary Artery Bypass Graft, Gastric Bypass Surgery, Herniorrhaphy, Pacemaker, Tonsillectomy Social History Information Source: Relative Smoking Status: Former Smoker Frequency of Alcohol Use: Occasional Hx Recreational Drug Use: No Drugs: None Hx Prescription Drug Abuse: No Family History Family History: Malignancy - Colon cancer Parental Family History Reviewed: Yes Children Family History Reviewed: Yes Sibling(s) Family History Reviewed.: Yes Medication/Allergy Home Medications: Aspirin [Ecotrin 81 mg EC Tablet] 81 mg PO ASDIR 07/19/12 Lisinopril [Prinivil 20 mg Tablet] 20 mg PO DAILY 07/19/12 Multivitamin [Multiple Vitamins] 1 each PO DAILY 07/19/12 Pravastatin Sodium [Pravachol] 40 mg PO QHS 07/19/12 Amlodipine Besylate [Norvasc 5 mg Tablet] 5 mg PO DAILY 01/14/13 Tolterodine Tartrate [Detrol LA] 4 mg PO DAILY 01/14/13 Finasteride [Proscar 5 mg Tablet] 5 mg PO DAILY 12/02/15 Docusate Sodium [Colace 100 mg Capsule] 100 mg PO BID #60 capsule 12/12/16 Polyethylene Glycol 3350 [Miralax] 1 cap PO DAILY #1 bot 12/12/16 Pantoprazole Sodium 20 mg PO DAILY 12/16/16 Allergies/Adverse Reactions: No Known Allergies Allergy (Verified 12/16/16 11:33) Review of Systems ROS unobtainable: Due to endotracheal tube, Due to mental status - Patient intubated and sedated Physical Exam Vital Signs: Temp Pulse Resp BP Pulse Ox 100.0 F 84 10 L 117/65 98 12/20/16 08:00 12/20/16 08:09 12/20/16 08:00 12/20/16 08:00 12/20/16 08:23 Intake & Output 12/19/16 12/20/16 12/21/16 06:59 06:59 06:59 Intake Total 15369 Output Total 6300 100 Balance 9438 -100 Weight 78.9 kg General appearance: PRESENT: no acute distress, other - Intubated and sedated Head exam: PRESENT: atraumatic, normocephalic Eye exam: PRESENT: conjunctiva pink. ABSENT: scleral icterus Ear exam: PRESENT: normal external ear exam. ABSENT: drainage Mouth exam: PRESENT: dry mucosa, neck supple, tongue midline Neck exam: ABSENT: carotid bruit, JVD, lymphadenopathy, thyromegaly Respiratory exam: PRESENT: clear to auscultation annabel, unlabored. ABSENT: rales , rhonchi, wheezes Cardiovascular exam: PRESENT: RRR, systolic murmur - Left sternal border radiating to the carotids. ABSENT: diastolic murmur, rubs Pulses: PRESENT: normal dorsalis pedis pul Vascular exam: PRESENT: normal capillary refill GI/Abdominal exam: PRESENT: guarding - Mild, hypoactive bowel sounds, soft, tenderness - Mild. ABSENT: distended, mass, organolmegaly, rebound Rectal exam: PRESENT: deferred Extremities exam: ABSENT: calf tenderness, clubbing, pedal edema Neurological exam: PRESENT: altered - on diprivan Psychiatric exam: ABSENT: agitated Focused psych exam: ABSENT: restlessness Skin exam: PRESENT: dry, intact, warm. ABSENT: cyanosis, rash Results Laboratory Results: 12/20/16 07:13 12/20/16 07:13 12/20/16 12/20/16 12/20/16 01:39 07:13 07:13 WBC 23.5 H RBC 4.08 L Hgb 12.9 L Hct 39.1 MCV 96 MCH 31.5 MCHC 32.9 RDW 14.3 H Plt Count 192 Sodium 139.7 138.3 Potassium 3.3 L 3.6 Chloride 104 106 Carbon Dioxide 30 27 Anion Gap 6 5 BUN 53 H 46 H Creatinine 1.97 H 1.84 H Est GFR ( Amer) 40 L 43 L Est GFR (Non-Af Amer) 33 L 36 L Glucose 138 H 176 H Calcium 7.9 L 8.1 L Magnesium 1.9 Triglycerides 41 Impressions: Chest X-Ray 12/19/16 00:00 IMPRESSION: 1. HARDWARE APPEARS TO BE IN SATISFACTORY POSITION. 2. FAINT ATELECTASIS IN THE RIGHT BASE. ATELECTASIS VERSUS INFILTRATE IN THE LEFT BASE. Assessment & Plan - Diagnosis (1) Toxic megacolon Is this a current diagnosis for this admission?: Yes (2) Sigmoid volvulus Is this a current diagnosis for this admission?: Yes (3) Acute renal failure Qualifiers: Acute renal failure type: unspecified Qualified Code(s): N17.9 - Acute kidney failure, unspecified Is this a current diagnosis for this admission?: Yes (4) Chronic kidney disease, stage II (mild) Is this a current diagnosis for this admission?: Yes (5) Nodule of spleen Is this a current diagnosis for this admission?: Yes (6) Essential hypertension Is this a current diagnosis for this admission?: Yes (7) Hyperlipidemia, acquired Is this a current diagnosis for this admission?: Yes (8) BPH (benign prostatic hyperplasia) Qualifiers: Lower urinary tract symptom presence: unspecified whether lower urinary tract symptoms present Qualified Code(s): N40.0 - Benign prostatic hyperplasia without lower urinary tract symptoms Is this a current diagnosis for this admission?: Yes (9) Atherosclerotic vascular disease Is this a current diagnosis for this admission?: Yes - Time Time Spent: 50 to 70 Minutes - Plan Summary Plan Summary: Agree with IV antibiotics and hydration. Follow cultures. Follow biopsy result. Monitor electrolytes and replace accordingly. DVT prophylaxis with SCDs and QUINTIN hose. His creatinine is trending down and has a baseline of stage II we will continue to monitor. Wean vasopressors. Early extubation. Thank you so much for this consultation, we will follow the patient with you.
--- NOTE | 2016-12-20 15:36 | RADIOLOGY REPORT (SQ) ---
EXAM DESCRIPTION: CHEST SINGLE VIEW COMPLETED DATE/TIME: 12/20/2016 3:22 pm REASON FOR STUDY: Intubated K56.2 VOLVULUS COMPARISON: 12/19/2016 NUMBER OF VIEWS: One view. TECHNIQUE: Single frontal radiographic image of the chest acquired. LIMITATIONS: None. FINDINGS: LUNGS AND PLEURA: Stable appearance. MEDIASTINUM AND HILAR STRUCTURES: Stable heart size and mediastinal structures. HEART AND VASCULAR STRUCTURES: Stable appearance. SUPPORT DEVICES: Appropriate location without change. BONES: No acute findings. OTHER: No other significant finding. IMPRESSION: STABLE APPEARANCE OF THE CHEST. SUPPORT DEVICES UNCHANGED. TECHNICAL DOCUMENTATION: JOB ID: [id number] [employer]- All Rights Reserved
--- NOTE | 2016-12-20 18:16 | PDOC PROGRESS REPORT ---
Subjective Progress Note for:: 12/20/16 - Postop day #1 Subjective:: Patient is intubated and sedated on vent. Physical Exam Vital Signs: Temp Pulse Resp BP Pulse Ox 99.9 F 96 13 107/57 L 97 12/20/16 16:00 12/20/16 16:00 12/20/16 16:56 12/20/16 16:56 12/20/16 16:56 Intake & Output 12/19/16 12/20/16 12/21/16 06:59 06:59 06:59 Intake Total 13825 Output Total 6300 600 Balance 9438 -600 Weight 78.9 kg General appearance: PRESENT: no acute distress Neck exam: PRESENT: JVD Respiratory exam: PRESENT: clear to auscultation annabel, unlabored Cardiovascular exam: PRESENT: RRR GI/Abdominal exam: PRESENT: diminished bowel sounds, soft. ABSENT: distended, rebound, rigid, tenderness - Stoma is pink, with small amount of gas and stool in the colostomy bag. Results Laboratory Results: 12/20/16 07:13 12/20/16 16:51 12/20/16 12/20/16 12/20/16 01:39 07:13 07:13 WBC 23.5 H RBC 4.08 L Hgb 12.9 L Hct 39.1 MCV 96 MCH 31.5 MCHC 32.9 RDW 14.3 H Plt Count 192 Sodium 139.7 138.3 Potassium 3.3 L 3.6 Chloride 104 106 Carbon Dioxide 30 27 Anion Gap 6 5 BUN 53 H 46 H Creatinine 1.97 H 1.84 H Est GFR ( Amer) 40 L 43 L Est GFR (Non-Af Amer) 33 L 36 L Glucose 138 H 176 H Calcium 7.9 L 8.1 L Magnesium 1.9 Triglycerides 41 12/20/16 16:51 WBC RBC Hgb Hct MCV MCH MCHC RDW Plt Count Sodium Potassium 3.7 Chloride Carbon Dioxide Anion Gap BUN Creatinine Est GFR ( Amer) Est GFR (Non-Af Amer) Glucose Calcium Magnesium Triglycerides Impressions: Chest X-Ray 12/20/16 00:00 IMPRESSION: STABLE APPEARANCE OF THE CHEST. SUPPORT DEVICES UNCHANGED. Assessment & Plan - Diagnosis (1) Sigmoid volvulus Is this a current diagnosis for this admission?: Yes - Plan Summary Plan Summary: Hopefully, patient can be extubated in the a.m., after which, oral feedings will be initiated.
[2016-12-20] MEDS: MORPHINE SULFATE 10 MG/ML INJ IV PRN (20:04)
[2016-12-21 04:42] LABS: HEMATOCRIT 34.6 % (37.9-51.0); HEMOGLOBIN 11.5 g/dL (13.5-17.0); HGB HCT DIFFERENCE -0.1; MEAN CORPUSCULAR HEMOGLOBIN 31.5 pg (27.0-33.4); MEAN CORPUSCULAR HGB CONC 33.3 g/dL (32.0-36.0); MEAN CORPUSCULAR VOLUME 95 fl (80-97); RED BLOOD COUNT 3.66 10^6/uL (4.35-5.55); RED CELL DISTRIBUTION WIDTH 14.1 % (11.5-14.0); WHITE BLOOD COUNT 14.4 10^3/uL (4.0-10.5)
[2016-12-21 04:51] LABS: BLOOD UREA NITROGEN 35 mg/dL (7-20); CREATININE RESULT 1.52 mg/dL (0.52-1.25); GLUCOSE 180 mg/dL (75-110)
[2016-12-21 04:52] LABS: CARBON DIOXIDE 27 mmol/L (22-30); CHLORIDE 107 mmol/L (98-107); MAGNESIUM 1.8 mg/dL (1.6-2.3); POTASSIUM 3.5 mmol/L (3.6-5.0); SODIUM 138.3 mmol/L (137-145)
[2016-12-21] MEDS: PROPOFOL 100 ML IV PRN (05:24)
[2016-12-21] MEDS: DEXTROSE 5%-LACTATED RINGERS 1,000 ML IV PRN ×3 (05:24→22:28)
[2016-12-21 05:28] LABS: ANION GAP 4 (5-19)
--- NOTE | 2016-12-21 07:26 | RADIOLOGY REPORT (SQ) ---
EXAM DESCRIPTION: CHEST SINGLE VIEW COMPLETED DATE/TIME: 12/21/2016 6:46 am REASON FOR STUDY: Intubated COMPARISON: Chest x-ray 12/20/2016. EXAM PARAMETERS: NUMBER OF VIEWS: One view TECHNIQUE: Single frontal radiograph of the chest. RADIATION DOSE: N/A LIMITATIONS: None. FINDINGS: TEMPORARY SUPPORT DEVICES:The endotracheal tube has the tip approximately 8 cm above the c rosalind. NG tube courses below the left germán-diaphragm in to the stomach. LUNGS AND PLEURA: There are small bilateral pleural effusions with bibasilar airspace opacities. MEDIASTINUM AND HILAR STRUCTURES: No masses. Contour normal. HEART AND VASCULAR STRUCTURES: Heart size normal. No overt vascular congestion. BONES: No acute findings. IMPRESSION: Small bilateral pleural effusions with bibasilar airspace opacities, may represent atele ctasis or pneumonia. High location of the endotracheal tube, advancement by approximately 2 -3 cm recommended. RECOMMENDATIONS: Advancement of the endotracheal tube. TECHNICAL DOCUMENTATION: JOB ID: [id number] 2010 [employer]- All Rights Reserved
--- NOTE | 2016-12-21 07:50 | PDOC PROGRESS REPORT ---
Subjective Progress Note for:: 12/21/16 Subjective:: Patient on the ventilator, tolerating weaning well. Off sedation. Off Levophed and dopamine. No reported temperature spikes, nausea or vomiting, chills or fever. Patient denies any pain or discomfort at this time. Physical Exam Vital Signs: Temp Pulse Resp BP Pulse Ox 98.9 F 76 10 L 117/49 L 100 12/21/16 04:00 12/21/16 07:35 12/21/16 06:13 12/21/16 06:13 12/21/16 06:13 Intake & Output 12/20/16 12/21/16 12/22/16 06:59 06:59 06:59 Intake Total 39688 6662 Output Total 6300 1430 Balance 9438 5232 Weight 78.9 kg 87.1 kg General appearance: PRESENT: no acute distress, cooperative Head exam: PRESENT: normocephalic Eye exam: PRESENT: conjunctiva pale, EOMI Mouth exam: PRESENT: moist, neck supple Neck exam: ABSENT: JVD Respiratory exam: PRESENT: clear to auscultation annabel. ABSENT: rhonchi, wheezes Cardiovascular exam: PRESENT: RRR, systolic murmur - Left sternal border GI/Abdominal exam: PRESENT: diminished bowel sounds. ABSENT: distended Extremities exam: ABSENT: pedal edema Neurological exam: PRESENT: alert, awake Focused psych exam: ABSENT: restlessness Skin exam: PRESENT: dry, warm. ABSENT: cyanosis Results Laboratory Results: 12/21/16 04:00 12/21/16 04:00 12/20/16 12/20/16 12/21/16 07:13 16:51 04:00 WBC 23.5 H 14.4 H RBC 4.08 L 3.66 L Hgb 12.9 L 11.5 L Hct 39.1 34.6 L MCV 96 95 MCH 31.5 31.5 MCHC 32.9 33.3 RDW 14.3 H 14.1 H Plt Count 192 146 L Sodium Potassium 3.7 Chloride Carbon Dioxide Anion Gap BUN Creatinine Est GFR ( Amer) Est GFR (Non-Af Amer) Glucose Calcium Magnesium 12/21/16 04:00 WBC RBC Hgb Hct MCV MCH MCHC RDW Plt Count Sodium 138.3 Potassium 3.5 L Chloride 107 Carbon Dioxide 27 Anion Gap 4 L BUN 35 H Creatinine 1.52 H Est GFR ( Amer) 54 L Est GFR (Non-Af Amer) 44 L Glucose 180 H Calcium 8.0 L Magnesium 1.8 Impressions: Chest X-Ray 12/21/16 06:00 IMPRESSION: Small bilateral pleural effusions with bibasilar airspace opacities , may represent atelectasis or pneumonia. High location of the endotracheal tube, advancement by approximately 2 -3 cm recommended. Assessment & Plan - Diagnosis (1) Toxic megacolon Is this a current diagnosis for this admission?: Yes (2) Sigmoid volvulus Is this a current diagnosis for this admission?: Yes (3) Acute renal failure Qualifiers: Acute renal failure type: unspecified Qualified Code(s): N17.9 - Acute kidney failure, unspecified Is this a current diagnosis for this admission?: Yes (4) Chronic kidney disease, stage II (mild) Is this a current diagnosis for this admission?: Yes (5) Nodule of spleen Is this a current diagnosis for this admission?: Yes (6) Essential hypertension Is this a current diagnosis for this admission?: Yes (7) Hyperlipidemia, acquired Is this a current diagnosis for this admission?: Yes (8) BPH (benign prostatic hyperplasia) Qualifiers: Lower urinary tract symptom presence: unspecified whether lower urinary tract symptoms present Qualified Code(s): N40.0 - Benign prostatic hyperplasia without lower urinary tract symptoms Is this a current diagnosis for this admission?: Yes (9) Atherosclerotic vascular disease Is this a current diagnosis for this admission?: Yes - Time Time Spent with patient: 25-34 minutes - Plan Summary Plan Summary: Replace potassium, monitor electrolytes, extubate patient today, continue antibiotic and monitor platelet count. Decrease intravenous fluid. 1 dose of IV Lasix. We will continue to follow.
[2016-12-21] MEDS ORDERED: FUROSEMIDE INJ/PF 20 MG/2 ML SDV IV ONE (07:52)
[2016-12-21] MEDS: POTASSI CL 20 MEQ/50 ML RIDER 20 MEQ/50 ML RTUPB IV SCH ×3 (09:17→13:03)
--- NOTE | 2016-12-21 22:24 | PDOC PROGRESS REPORT ---
Subjective Progress Note for:: 12/21/16 Physical Exam Vital Signs: Temp Pulse Resp BP Pulse Ox 97.6 F 87 22 H 149/67 H 97 12/21/16 22:00 12/21/16 22:00 12/21/16 22:00 12/21/16 22:00 12/21/16 22:00 Intake & Output 12/20/16 12/21/16 12/22/16 06:59 06:59 06:59 Intake Total 62829 6633 1879 Output Total 6300 1430 2215 Balance 9438 5232 -336 Weight 78.9 kg 87.1 kg General appearance: PRESENT: no acute distress Respiratory exam: PRESENT: clear to auscultation annabel Cardiovascular exam: PRESENT: RRR GI/Abdominal exam: PRESENT: normal bowel sounds, soft. ABSENT: tenderness - Stool and gas is noted in ileostomy. stoma is pink. Results Laboratory Results: 12/21/16 04:00 12/21/16 04:00 12/21/16 12/21/16 04:00 04:00 WBC 14.4 H RBC 3.66 L Hgb 11.5 L Hct 34.6 L MCV 95 MCH 31.5 MCHC 33.3 RDW 14.1 H Plt Count 146 L Sodium 138.3 Potassium 3.5 L Chloride 107 Carbon Dioxide 27 Anion Gap 4 L BUN 35 H Creatinine 1.52 H Est GFR ( Amer) 54 L Est GFR (Non-Af Amer) 44 L Glucose 180 H Calcium 8.0 L Magnesium 1.8 Impressions: Chest X-Ray 12/21/16 06:00 IMPRESSION: Small bilateral pleural effusions with bibasilar airspace opacities , may represent atelectasis or pneumonia. High location of the endotracheal tube, advancement by approximately 2 -3 cm recommended. Assessment & Plan - Diagnosis (1) Sigmoid volvulus Is this a current diagnosis for this admission?: Yes - Plan Summary Plan Summary: Advance diet in the a.m.
[2016-12-22 04:13] LABS: HEMATOCRIT 35.2 % (37.9-51.0); HEMOGLOBIN 11.5 g/dL (13.5-17.0); HGB HCT DIFFERENCE -0.7; MEAN CORPUSCULAR HEMOGLOBIN 31.1 pg (27.0-33.4); MEAN CORPUSCULAR HGB CONC 32.7 g/dL (32.0-36.0); MEAN CORPUSCULAR VOLUME 95 fl (80-97); RED BLOOD COUNT 3.69 10^6/uL (4.35-5.55); WHITE BLOOD COUNT 14.3 10^3/uL (4.0-10.5)
[2016-12-22 04:33] LABS: BLOOD UREA NITROGEN 29 mg/dL (7-20); CHLORIDE 106 mmol/L (98-107); GLUCOSE 132 mg/dL (75-110); POTASSIUM 3.6 mmol/L (3.6-5.0)
[2016-12-22 04:54] LABS: CARBON DIOXIDE 31 mmol/L (22-30); SODIUM 139.7 mmol/L (137-145)
[2016-12-22 04:56] LABS: ANION GAP 3 (5-19)
[2016-12-22] MEDS: DEXTROSE 5%-LACTATED RINGERS 1,000 ML IV PRN (08:09)
[2016-12-22] MEDS ORDERED: DEXTROSE 5%-LACTATED RINGERS 1,000 ML IV PRN (09:16)
--- NOTE | 2016-12-22 09:19 | PDOC PROGRESS REPORT ---
Subjective Progress Note for:: 12/22/16 Subjective:: Patient is off ventilator. Occasional cough but dry. No shortness of breath or chest pain. On nasal cannula oxygen for report of desaturation at night. No chills or fever, nausea or vomiting, paroxysmal nocturnal dyspnea, orthopnea. Patient started on diet and tolerated it. Physical Exam Vital Signs: Temp Pulse Resp BP Pulse Ox 99.1 F 83 22 H 152/68 H 93 12/22/16 07:47 12/22/16 07:47 12/22/16 07:47 12/22/16 07:47 12/22/16 07:47 Intake & Output 12/21/16 12/22/16 12/23/16 06:59 06:59 06:59 Intake Total 6662 2970 250 Output Total 1430 2765 75 Balance 5232 205 175 Weight 87.1 kg 89.2 kg General appearance: PRESENT: no acute distress, cooperative Head exam: PRESENT: normocephalic Eye exam: PRESENT: conjunctiva pale, EOMI Mouth exam: PRESENT: moist, neck supple Neck exam: ABSENT: JVD Respiratory exam: PRESENT: clear to auscultation annabel, unlabored. ABSENT: wheezes Cardiovascular exam: PRESENT: RRR. ABSENT: gallop GI/Abdominal exam: PRESENT: soft. ABSENT: distended Extremities exam: ABSENT: pedal edema Neurological exam: PRESENT: alert, awake, oriented to situation Skin exam: PRESENT: dry, warm. ABSENT: cyanosis Results Laboratory Results: 12/22/16 03:48 12/22/16 03:48 12/22/16 12/22/16 03:48 03:48 WBC 14.3 H RBC 3.69 L Hgb 11.5 L Hct 35.2 L MCV 95 MCH 31.1 MCHC 32.7 RDW 14.0 Plt Count 134 L Sodium 139.7 Potassium 3.6 Chloride 106 Carbon Dioxide 31 H Anion Gap 3 L BUN 29 H Creatinine 1.30 H Est GFR ( Amer) > 60 Est GFR (Non-Af Amer) 53 L Glucose 132 H Calcium 8.0 L Impressions: Chest X-Ray 12/21/16 06:00 IMPRESSION: Small bilateral pleural effusions with bibasilar airspace opacities , may represent atelectasis or pneumonia. High location of the endotracheal tube, advancement by approximately 2 -3 cm recommended. Assessment & Plan - Diagnosis (1) Toxic megacolon Is this a current diagnosis for this admission?: Yes (2) Sigmoid volvulus Is this a current diagnosis for this admission?: Yes (3) Acute renal failure Qualifiers: Acute renal failure type: unspecified Qualified Code(s): N17.9 - Acute kidney failure, unspecified Is this a current diagnosis for this admission?: Yes (4) Chronic kidney disease, stage II (mild) Is this a current diagnosis for this admission?: Yes (5) Nodule of spleen Is this a current diagnosis for this admission?: Yes (6) Essential hypertension Is this a current diagnosis for this admission?: Yes (7) Hyperlipidemia, acquired Is this a current diagnosis for this admission?: Yes (8) BPH (benign prostatic hyperplasia) Qualifiers: Lower urinary tract symptom presence: unspecified whether lower urinary tract symptoms present Qualified Code(s): N40.0 - Benign prostatic hyperplasia without lower urinary tract symptoms Is this a current diagnosis for this admission?: Yes (9) Atherosclerotic vascular disease Is this a current diagnosis for this admission?: Yes - Time Time Spent with patient: 25-34 minutes - Plan Summary Plan Summary: Out of bed and begin physical therapy. Blood pressure starting to increase, we will start by his amlodipine and lisinopril. We will wean oxygen to off. Transferred to telemetry floor. Continue supportive care. We will continue to follow.
[2016-12-22] MEDS ORDERED: (PENDING PHARMACY ID) (Lisinopril [Prinivil 20 Mg Tablet] 20 MG) PO SCH (10:00)
[2016-12-22] MEDS ORDERED: FINASTERIDE 5 MG TABLET PO SCH (10:00)
[2016-12-22] MEDS ORDERED: AMLODIPINE BESYLATE 5 MG TABLET PO SCH (10:00)
[2016-12-22] MEDS ORDERED: (PENDING PHARMACY ID) (Tolterodine Tartrate [Detrol La] 4 MG) PO SCH (10:00)
[2016-12-22] MEDS: LISINOPRIL 10 MG TABLET PO SCH (10:05)
[2016-12-22] MEDS: TOLTERODINE TARTRATE 1 MG TABLET PO SCH ×2 (11:23→22:23)
--- NOTE | 2016-12-22 15:29 | PDOC PROGRESS REPORT ---
Subjective Progress Note for:: 12/22/16 - No Subjective:: Feels well. No complaints. Tolerating diet. Physical Exam Vital Signs: Temp Pulse Resp BP Pulse Ox 98.7 F 97 30 H 177/80 H 95 12/22/16 14:00 12/22/16 13:42 12/22/16 14:00 12/22/16 13:28 12/22/16 14:00 Intake & Output 12/21/16 12/22/16 12/23/16 06:59 06:59 06:59 Intake Total 6662 2970 350 Output Total 1430 2765 480 Balance 5232 205 -130 Weight 87.1 kg 89.2 kg General appearance: PRESENT: no acute distress, cooperative Respiratory exam: PRESENT: clear to auscultation annabel - Low room and was seen in the hospital the omentum and the Cardiovascular exam: PRESENT: RRR GI/Abdominal exam: PRESENT: other - Soft, ostomy functioning well. Clean dry and intact. Results Laboratory Results: 12/22/16 03:48 12/22/16 03:48 12/22/16 12/22/16 03:48 03:48 WBC 14.3 H RBC 3.69 L Hgb 11.5 L Hct 35.2 L MCV 95 MCH 31.1 MCHC 32.7 RDW 14.0 Plt Count 134 L Sodium 139.7 Potassium 3.6 Chloride 106 Carbon Dioxide 31 H Anion Gap 3 L BUN 29 H Creatinine 1.30 H Est GFR ( Amer) > 60 Est GFR (Non-Af Amer) 53 L Glucose 132 H Calcium 8.0 L Impressions: Chest X-Ray 12/21/16 06:00 IMPRESSION: Small bilateral pleural effusions with bibasilar airspace opacities , may represent atelectasis or pneumonia. High location of the endotracheal tube, advancement by approximately 2 -3 cm recommended. Assessment & Plan - Diagnosis (1) Toxic megacolon Is this a current diagnosis for this admission?: YesPlan: Status post total abdominal colectomy. Patient looks good. Transferred to the floor.
[2016-12-22] MEDS: AMLODIPINE BESYLATE 5 MG TABLET PO SCH (22:21)
[2016-12-22] MEDS: FINASTERIDE 5 MG TABLET PO SCH (22:25)
[2016-12-22] MEDS: MORPHINE SULFATE 10 MG/ML INJ IV PRN (22:46)
[2016-12-22] MEDS: ONDANSETRON HCL INJ/PF 4 MG/2 ML SDV IV PRN (22:46)
[2016-12-23 06:27] LABS: BLOOD UREA NITROGEN 29 mg/dL (7-20); CALCIUM 7.9 mg/dL (8.4-10.2); CHLORIDE 105 mmol/L (98-107); CREATININE RESULT 1.22 mg/dL (0.52-1.25); GLUCOSE 129 mg/dL (75-110); POTASSIUM 3.7 mmol/L (3.6-5.0)
[2016-12-23 06:36] LABS: CARBON DIOXIDE 29 mmol/L (22-30); SODIUM 137.9 mmol/L (137-145)
[2016-12-23 06:37] LABS: ANION GAP 4 (5-19)
--- NOTE | 2016-12-23 11:37 | PDOC PROGRESS REPORT ---
Subjective Progress Note for:: 12/23/16 Subjective:: Occasional cough but dry. No shortness of breath or chest pain. No reported respiratory distress. Off nasal cannula oxygen and no desaturation was reported. No chills or fever, nausea or vomiting, paroxysmal nocturnal dyspnea , orthopnea. Patient tolerating his diet. Physical Exam Vital Signs: Temp Pulse Resp BP Pulse Ox 99.1 F 94 18 138/58 H 94 12/22/16 21:53 12/22/16 21:53 12/22/16 21:53 12/22/16 21:53 12/22/16 21:53 Intake & Output 12/22/16 12/23/16 12/24/16 06:59 06:59 06:59 Intake Total 2970 1590 Output Total 2765 1280 Balance 205 310 Weight 89.2 kg 89.3 kg General appearance: PRESENT: no acute distress, cooperative Head exam: PRESENT: normocephalic Eye exam: PRESENT: EOMI Mouth exam: PRESENT: moist, neck supple Neck exam: ABSENT: JVD Respiratory exam: PRESENT: clear to auscultation annabel. ABSENT: rhonchi, wheezes Cardiovascular exam: PRESENT: RRR. ABSENT: gallop GI/Abdominal exam: PRESENT: hypoactive bowel sounds, soft Extremities exam: PRESENT: other - Upper extremity edema bilateral improved. ABSENT: pedal edema Neurological exam: PRESENT: alert, awake, oriented to person, oriented to place , oriented to time, oriented to situation Skin exam: PRESENT: dry, warm. ABSENT: cyanosis Results Laboratory Results: 12/22/16 03:48 12/23/16 05:38 12/23/16 05:38 Sodium 137.9 Potassium 3.7 Chloride 105 Carbon Dioxide 29 Anion Gap 4 L BUN 29 H Creatinine 1.22 Est GFR ( Amer) > 60 Est GFR (Non-Af Amer) 57 L Glucose 129 H Calcium 7.9 L Impressions: Chest X-Ray 12/21/16 06:00 IMPRESSION: Small bilateral pleural effusions with bibasilar airspace opacities , may represent atelectasis or pneumonia. High location of the endotracheal tube, advancement by approximately 2 -3 cm recommended. Assessment & Plan - Diagnosis (1) Toxic megacolon Is this a current diagnosis for this admission?: Yes (2) Sigmoid volvulus Is this a current diagnosis for this admission?: Yes (3) Acute renal failure Qualifiers: Acute renal failure type: unspecified Qualified Code(s): N17.9 - Acute kidney failure, unspecified Is this a current diagnosis for this admission?: Yes (4) Chronic kidney disease, stage II (mild) Is this a current diagnosis for this admission?: Yes (5) Nodule of spleen Is this a current diagnosis for this admission?: Yes (6) Essential hypertension Is this a current diagnosis for this admission?: Yes (7) Hyperlipidemia, acquired Is this a current diagnosis for this admission?: Yes (8) BPH (benign prostatic hyperplasia) Qualifiers: Lower urinary tract symptom presence: unspecified whether lower urinary tract symptoms present Qualified Code(s): N40.0 - Benign prostatic hyperplasia without lower urinary tract symptoms Is this a current diagnosis for this admission?: Yes (9) Atherosclerotic vascular disease Is this a current diagnosis for this admission?: Yes - Time Time Spent with patient: 15-24 minutes - Plan Summary Plan Summary: Patient's creatinine has now normalized. Blood pressure improved. Patient tolerating oral intake. Physical therapy instituted. We will sign off from his case. Please reconsult us as needed. Thank you so much for letting us participate in his care.
[2016-12-23] MEDS: TOLTERODINE TARTRATE 1 MG TABLET PO SCH ×2 (13:40→21:04)
[2016-12-23] MEDS: LISINOPRIL 10 MG TABLET PO SCH (13:40)
--- NOTE | 2016-12-23 15:58 | PROGRESS NOTE E ---
Progress Note NAME: GUSTAVO HEARN : 1935 AGE: 81Y DATE: 12/23/2016 ROOM: 533 SUBJECTIVE: The patient is about 3 days postop. 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 The abdomen is soft and nontender. The incision is clean and dry. He was started on liquid diet. We will keep the Ames another day and possibly remove in the morning. He was just started on his Flomax medication. We will continue him on IV antibiotics. DICTATING PHYSICIAN: TEX MCKEON M.D. [id number] PHY#: [id number] ID: [id number] JOB#: [id number] ACCT: [id number] cc: >
[2016-12-23] MEDS: ONDANSETRON HCL INJ/PF 4 MG/2 ML SDV IV PRN (21:04)
[2016-12-23] MEDS: AMLODIPINE BESYLATE 5 MG TABLET PO SCH (21:04)
[2016-12-23] MEDS: FINASTERIDE 5 MG TABLET PO SCH (21:05)
[2016-12-24] MEDS: ONDANSETRON HCL INJ/PF 4 MG/2 ML SDV IV PRN ×3 (06:53→22:53)
[2016-12-24] MEDS ORDERED: SUCCINYLCHOLINE CHLORIDE INJ 200 MG/10 ML VIAL ONE (07:57)
[2016-12-24] MEDS: TOLTERODINE TARTRATE 1 MG TABLET PO SCH ×2 (09:25→22:52)
[2016-12-24] MEDS: LISINOPRIL 10 MG TABLET PO SCH (09:26)
[2016-12-24] MEDS ORDERED: NORMAL SALINE 1000 ML 1,000 ML IV PRN ×2 (11:57→16:33)
--- NOTE | 2016-12-24 14:26 | RADIOLOGY REPORT (SQ) ---
EXAM DESCRIPTION: CHEST PA/LAT COMPLETED DATE/TIME: 12/24/2016 2:12 pm REASON FOR STUDY: R/O PE COMPARISON: 12/21/2016. TECHNIQUE: Frontal and lateral radiographic views of the chest acquired. NUMBER OF VIEWS: Two view. LIMITATIONS: None. FINDINGS: LUNGS AND PLEURA: Low lung volumes with bibasilar areas of airspace disease and small effu sions. When compared to previous study, there is now all free air under the hemidiaphragms. Presuma mina, this is postoperative. If not, viscus perforation should be considered. MEDIASTINUM AND HILAR STRUCTURES: No masses or contour abnormalities. HEART AND VASCULAR STRUCTURES: Heart normal size. No evidence for failure. BONES: No acute findings. HARDWARE: None in the chest. OTHER: No other significant finding. IMPRESSION: 1. Diminished aeration in the lung bases. Combination of airspace disease and small eff usions. 2. Free air in the abdomen, presumably postoperative. If no recent abdominal surgery, this should be considered viscus perforation until proven otherwise. TECHNICAL DOCUMENTATION: JOB ID: [id number]- All Rights Reserved
--- NOTE | 2016-12-24 16:09 | PROGRESS NOTE E ---
Progress Note NAME: GUSTAVO HEARN : 1935 AGE: 81Y DATE: 12/24/2016 ROOM: 533 SUBJECTIVE: The patient just came back for a chest x-ray because of low oxygen saturation. The x-ray showed poor aeration. No evidence of infiltrate or congestive heart failure. OBJECTIVE: GENERAL: The patient appears comfortable, but his blood pressure is now noted to be 83/45 and pulse oximetry around 80% on nonrebreather. He did have some episode of coughing out some dark mucus. It does not looked in any labored breathing and he claims that he feels comfortable. ABDOMEN: The abdomen is soft and nontender. The colostomy bag is full of air with a small amount of stool. Colostomy is viable. He apparently has not been drinking enough fluids and we decreased his IV fluids. He might be a little bit on the dry side and I ordered fluid boluses of at least 500 mL of normal saline. If his vital signs remain low and the pulse oximetry remains in the 80s, we might have to transfer him to IMCU or ICU for better management. In time, we will try him again to take clear liquids and see if he can tolerate it better. DICTATING PHYSICIAN: TEX MCKEON M.D. [id number] LEISA#: [id number] ID: [id number] JOB#: [id number] ACCT: [id number] cc: >
[2016-12-24] MEDS ORDERED: NORMAL SALINE 1000 ML 500 ML IV ONE (16:42)
[2016-12-24] MEDS ORDERED: AZTREONAM INJ 1 GM VIAL IV SCH ×2 (16:45→17:15)
--- NOTE | 2016-12-24 16:59 | PDOC PROGRESS REPORT ---
Subjective Progress Note for:: 12/24/16 Subjective:: Reconsulted as for vomiting, hypoxia, and hypotension. Patient was doing well up until earlier today patient was having a lot of dry heaving and nausea and eventually developed coffee-ground vomitus. The patient denies any dizziness or chest pain but may have a little bit of shortness of breath earlier. O2 saturation was reported to be low in the 80s and patient was placed on nonrebreather mask. Patient's colostomy output seems to be good as per staff. No reported temperature spikes. With a nonrebreather the patient's altered saturation improved. Boluses of normal saline were given and blood pressure improved as well in the 80s to low 100 systolic. The patient denies any chest pain at all. Physical Exam Vital Signs: Temp Pulse Resp BP Pulse Ox 98.2 F 113 H 20 83/37 L 84 L 12/24/16 16:23 12/24/16 16:23 12/24/16 16:23 12/24/16 16:23 12/24/16 16:23 Intake & Output 12/23/16 12/24/16 12/25/16 06:59 06:59 06:59 Intake Total 1590 820 Output Total 1280 1100 Balance 310 -280 Weight 89.3 kg 91 kg General appearance: PRESENT: no acute distress, other - On nonrebreather mask Head exam: PRESENT: normocephalic Eye exam: PRESENT: EOMI Mouth exam: PRESENT: moist, neck supple Neck exam: ABSENT: JVD Respiratory exam: PRESENT: clear to auscultation annabel - Anteriorly, rhonchi - Minimal on the lower lung field posteriorly Cardiovascular exam: PRESENT: RRR. ABSENT: gallop GI/Abdominal exam: PRESENT: hypoactive bowel sounds, soft. ABSENT: distended Extremities exam: PRESENT: other - Trace pretibial edema Neurological exam: PRESENT: alert, awake, oriented to situation Skin exam: PRESENT: dry, warm. ABSENT: cyanosis Results Laboratory Results: 12/22/16 03:48 12/23/16 05:38 Impressions: Chest X-Ray 12/24/16 11:50 IMPRESSION: 1. Diminished aeration in the lung bases. Combination of airspace disease and small effusions. 2. Free air in the abdomen, presumably postoperative. If no recent abdominal surgery, this should be considered viscus perforation until proven otherwise. Assessment & Plan - Diagnosis (1) Toxic megacolon Is this a current diagnosis for this admission?: Yes (2) Sigmoid volvulus Is this a current diagnosis for this admission?: Yes (3) Acute renal failure Qualifiers: Acute renal failure type: unspecified Qualified Code(s): N17.9 - Acute kidney failure, unspecified Is this a current diagnosis for this admission?: Yes (4) Chronic kidney disease, stage II (mild) Is this a current diagnosis for this admission?: Yes (5) Nodule of spleen Is this a current diagnosis for this admission?: Yes (6) Essential hypertension Is this a current diagnosis for this admission?: Yes (7) Hyperlipidemia, acquired Is this a current diagnosis for this admission?: Yes (8) BPH (benign prostatic hyperplasia) Qualifiers: Lower urinary tract symptom presence: unspecified whether lower urinary tract symptoms present Qualified Code(s): N40.0 - Benign prostatic hyperplasia without lower urinary tract symptoms Is this a current diagnosis for this admission?: Yes (9) Atherosclerotic vascular disease Is this a current diagnosis for this admission?: Yes (10) Hypotension Qualifiers: Hypotension type: unspecified hypotension type Qualified Code(s): I95.9 - Hypotension, unspecified Is this a current diagnosis for this admission?: Yes (11) Hypoxia Is this a current diagnosis for this admission?: Yes - Time Time Spent with patient: 25-34 minutes - Plan Summary Plan Summary: We will transfer the patient to [facility]. We will increase intravenous fluids and discontinue antihypertensive medication at this time. In the meantime we will obtain a stat hematocrit and put the patient on intravenous proton pump inhibitor. I will put the patient on SCDs, begin broad-spectrum antibiotic to cover for aspiration pneumonia, recheck creatinine. We will obtain cardiac enzymes as well.
[2016-12-24 17:00] LABS: HEMATOCRIT 40.7 % (37.9-51.0); HEMOGLOBIN 13.3 g/dL (13.5-17.0); HGB HCT DIFFERENCE -0.8; MEAN CORPUSCULAR HEMOGLOBIN 30.9 pg (27.0-33.4); MEAN CORPUSCULAR HGB CONC 32.7 g/dL (32.0-36.0); MEAN CORPUSCULAR VOLUME 95 fl (80-97); RED CELL DISTRIBUTION WIDTH 13.5 % (11.5-14.0); WHITE BLOOD COUNT 28.2 10^3/uL (4.0-10.5)
[2016-12-24] MEDS ORDERED: IPRATROPIUM/ALBUTEROL 0.5-2.5 MG/3 ML AMPUL NEB ONE (17:00)
--- NOTE | 2016-12-24 17:13 | RADIOLOGY REPORT (SQ) ---
EXAM DESCRIPTION: KUB/ABDOMEN (SINGLE VIEW) COMPLETED DATE/TIME: 12/24/2016 5:05 pm REASON FOR STUDY: Nausea/vomiting K56.2 VOLVULUS COMPARISON: 12/12/2016. NUMBER OF VIEWS: One view. TECHNIQUE: Supine radiographic image of the abdomen acquired. LIMITATIONS: None. FINDINGS: BOWEL GAS PATTERN: Diffuse small bowel dilation. CALCIFICATIONS: No suspicious calcifications. SOFT TISSUES: No gross mass or suggestion of organomegaly. HARDWARE: Midline skin clemente. BONES: No acute fracture. No worrisome bone lesions. OTHER: No other significant finding. IMPRESSION: DIFFUSE SMALL BOWEL DILATION. MAY BE DUE TO POSTOPERATIVE ILEUS ALTHOUGH OBSTRUCTION CA NNOT BE EXCLUDED. TECHNICAL DOCUMENTATION: JOB ID: [id number] [employer]- All Rights Reserved
[2016-12-24 17:16] LABS: ANION GAP 9 (5-19); BLOOD UREA NITROGEN 48 mg/dL (7-20); CALCIUM 8.3 mg/dL (8.4-10.2); CARBON DIOXIDE 26 mmol/L (22-30); CHLORIDE 106 mmol/L (98-107); CREATININE RESULT 1.66 mg/dL (0.52-1.25); GLUCOSE 133 mg/dL (75-110); POTASSIUM 4.5 mmol/L (3.6-5.0); SODIUM 140.9 mmol/L (137-145)
[2016-12-24] MEDS ORDERED: CLINDAMYCIN 600 MG/D5W RTU 600 MG/50 ML RTUPB IV SCH (18:00)
[2016-12-24] MEDS ORDERED: DEXTROSE 40% GEL 15 GM TUBE PO PRN ×2 (18:40)
[2016-12-24] MEDS ORDERED: DEXTROSE 50%-WATER 25 GM/50 ML DISP.SYRIN IV PRN ×2 (18:40)
[2016-12-24] MEDS ORDERED: GLUCAGON,HUMAN RECOMB 1 MG INJ SUBCUT PRN (18:40)
[2016-12-24 18:58] LABS: ARTERIAL BLOOD BASE EXCESS 6.5 mmol/L; ARTERIAL BLOOD O2 SATURATION 90.3 % (94-98)
--- NOTE | 2016-12-24 19:24 | RADIOLOGY REPORT (SQ) ---
EXAM DESCRIPTION: CTA CHEST COMPLETED DATE/TIME: 12/24/2016 7:12 pm REASON FOR STUDY: Hypoxia, pulmonary embolism. K56.2 VOLVULUS COMPARISON: None. TECHNIQUE: CT scan of the chest performed using helical scanning technique with dynamic intravenous contrast injection. Images reviewed with lung, soft tissue and bone windows. Reconstructed coronal and sagittal MPR images reviewed. Additional 3 dimensional post-processing performed to develop Maximal Intensity Projection images (MA P). All images stored on PACS. All CT scanners at this facility use dose modulation, iterative reconstruction, and/or weight based d osing when appropriate to reduce radiation dose to as low as reasonably achievable (ALARA). [facility]: Dose Right [facility]: CareDose [facility]: Dose Right [facility]: Teradose 4D [facility]: [employer] CONTRAST TYPE AND DOSE: contrast/concentration: Isovue 300.00 mg/ml; Total Contrast Delivered: 91.0 ml; Total Saline Delivered: 80.0 ml RENAL FUNCTION: BUN 48 creatinine 1.66. RADIATION DOSE: Up-to-date CT equipment and radiation dose reduction techniques were employed. CTDIv ol: 16.3 - 33.1 mGy. DLP: 644 mGy-cm. . LIMITATIONS: None. FINDINGS: LUNGS AND PLEURA: Moderate bilateral pleural effusions with dense consolidation in the low er lobes. AORTA AND GREAT VESSELS: No aneurysm or dissection. HEART: No pericardial effusion. PULMONARY ARTERIES: No emboli visualized in the main pulmonary arteries or the segmental branches. HILAR AND MEDIASTINAL STRUCTURES: No identified masses or abnormal nodes. HARDWARE: None in the chest. UPPER ABDOMEN: Tiny bubbles of free air, postoperative. Distended stomach and visualized bowel. Yeung ited exam. THYROID AND OTHER SOFT TISSUES: No masses. No adenopathy. BONES: No acute or significant finding. 3D MIPS: Confirm above findings. OTHER: No other significant finding. IMPRESSION: 1. NORMAL CTA OF THE CHEST. NO PULMONARY EMBOLI. 2. MODERATE BILATERAL PLEURAL EFFUSIONS. DENSE CONSOLIDATION IN THE LOWER LOBES DUE TO ATELECTASIS. CANNOT EXCLUDE PNEUMONIA. 3. FINDINGS IN THE UPPER ABDOMEN DESCRIBED. POSTOPERATIVE TINY BUBBLES OF FREE AIR. DISTENDED ST OMACH AND VISUALIZED SMALL BOWEL. TECHNICAL DOCUMENTATION: JOB ID: [id number] Quality ID # [id number]: Final reports with documentation of one or more dose reduction techniques (e.g., Au tomated exposure control, adjustment of the mA and/or kV according to patient size, use of iterative reconstruction technique) 2010 [employer]- All Rights Reserved
--- NOTE | 2016-12-24 19:59 | EKG REPORT ---
SEVERITY:- BORDERLINE ECG - SINUS TACHYCARDIA WITH PACS. : Confirmed by: Larry Barker MD 24-Dec-2016 19:58:24
[2016-12-24] MEDS ORDERED: AZTREONAM 1 GM in DEXTROSE 5%-WATER 50 ML IV SCH (22:00)
[2016-12-24] MEDS: PANTOPRAZOLE SODIUM 40 MG VIAL IV SCH (22:52)
[2016-12-24] MEDS: FINASTERIDE 5 MG TABLET PO SCH (22:53)
[2016-12-24] MEDS ORDERED: PHARMACY COMMUNICATION ORDER MC NR (23:45)
[2016-12-24] MEDS ORDERED: VANCOMYCIN HCL 0 MG in DEXTROSE 5%-WATER 250 ML IV NR (23:45)
[2016-12-24] MEDS ORDERED: PROPOFOL 100 ML IV ONE (23:56)
[2016-12-24] MEDS ORDERED: PHENYLEPHRINE HCL INJ/PF 10 MG/1 ML SDV ONE (23:56)
[2016-12-25] MEDS ORDERED: PROPOFOL 100 ML IV PRN (00:06)
[2016-12-25] MEDS ORDERED: PROPOFOL INJ 200 MG/20 ML VIAL IV ONE (00:06)
[2016-12-25] MEDS ORDERED: PHARMACY COMMUNICATION ORDER MC SCH (00:15)
[2016-12-25] MEDS ORDERED: NORMAL SALINE 1000 ML 1,000 ML IV ONE (00:15)
[2016-12-25 00:18] LABS: ARTERIAL BLOOD BASE EXCESS 0.6 mmol/L; ARTERIAL BLOOD O2 SATURATION 87.9 % (94-98)
[2016-12-25] MEDS ORDERED: NOREPINEPHRINE BITARTRATE INJ/PF 4 MG/4 ML SDV IV ONE (00:19)
[2016-12-25] MEDS ORDERED: PIPERACILLIN/TAZOBACTAM 4.5 GM VIAL IV PRN (00:22)
[2016-12-25] MEDS ORDERED: VANCOMYCIN HCL INJ 1000 MG VIAL IV PRN (00:28)
[2016-12-25 01:14] LABS: ALANINE AMINOTRANSFERASE 31 U/L (21-72); ALBUMIN 1.7 g/dL (3.5-5.0); ALKALINE PHOSPHATASE 59 U/L (38-126); ANION GAP 8 (5-19); ASPARTATE AMINO TRANSFERASE 26 U/L (17-59); BILIRUBIN,DIRECT 0.5 mg/dL (0.0-0.4); BILIRUBIN,TOTAL 0.8 mg/dL (0.2-1.3); BLOOD UREA NITROGEN 50 mg/dL (7-20); CALCIUM 7.7 mg/dL (8.4-10.2); CARBON DIOXIDE 28 mmol/L (22-30); CHLORIDE 106 mmol/L (98-107); CREATINE KINASE 66 U/L (55-170); CREATININE RESULT 2.16 mg/dL (0.52-1.25); GLUCOSE 181 mg/dL (75-110); MAGNESIUM 1.7 mg/dL (1.6-2.3); POTASSIUM 4.4 mmol/L (3.6-5.0); SODIUM 141.7 mmol/L (137-145); TOTAL PROTEIN 3.6 g/dL (6.3-8.2)
--- NOTE | 2016-12-25 01:27 | RADIOLOGY REPORT (SQ) ---
EXAM DESCRIPTION: CHEST SINGLE VIEW COMPLETED DATE/TIME: 12/25/2016 12:32 am REASON FOR STUDY: Check Placement of ETT/NG Tube COMPARISON: Chest x-ray 12/24/2016. CT angiogram chest 12/24/2016. EXAM PARAMETERS: NUMBER OF VIEWS: One view TECHNIQUE: Single frontal radiograph of the chest. RADIATION DOSE: N/A LIMITATIONS: None. FINDINGS: TEMPORARY SUPPORT DEVICES:The endotracheal tube tip is approximately 8 cm above the sammy . NG tube courses below the left germán-diaphragm in to the stomach. LUNGS AND PLEURA: There are small bilateral pleural effusions with bibasilar airspace opacities. No pneumothorax. MEDIASTINUM AND HILAR STRUCTURES: No masses. Contour normal. HEART AND VASCULAR STRUCTURES: Heart is upper normal limit in size. No overt vascular congestion. BONES: No acute findings. IMPRESSION: Small bilateral pleural effusions with bibasilar airspace opacities, may represent atele ctasis or pneumonia. High location of the endotracheal tube, advancement by approximately 3 cm recommended. RECOMMENDATIONS: Advancement of the endotracheal tube. TECHNICAL DOCUMENTATION: JOB ID: [id number] [place]-64 [employer]- All Rights Reserved
[2016-12-25] MEDS ORDERED: PIPERACILLIN/TAZOBACTAM 4.5 GM VIAL IV ONE (01:52)
[2016-12-25] MEDS ORDERED: VANCOMYCIN HCL INJ 1000 MG VIAL ONE (01:53)
[2016-12-25] MEDS ORDERED: AZTREONAM INJ 1 GM VIAL ONE (01:53)
[2016-12-25] MEDS ORDERED: VANCOMYCIN HCL 2,000 MG in DEXTROSE 5%-WATER 500 ML IV ONE (02:00)
--- NOTE | 2016-12-25 02:12 | RADIOLOGY REPORT (SQ) ---
EXAM DESCRIPTION: CHEST SINGLE VIEW COMPLETED DATE/TIME: 12/25/2016 1:16 am REASON FOR STUDY: Central line placement. Recent colon surgery. COMPARISON: Chest x-ray 12/25/2016 at 00:06 hours. CTA chest 12/24/2016. EXAM PARAMETERS: NUMBER OF VIEWS: One view TECHNIQUE: Single frontal radiographic view of the chest acquired portable semi upright at 01:00 hour s on 12/25/2016. RADIATION DOSE: N/A LIMITATIONS: Patient positioning. FINDINGS: TEMPORARY SUPPORT DEVICES:The endotracheal tube tip terminates approximately 9 cm above th e sammy, above the level of the clavicles. NG tube courses along the midline, its tip is not evalua miguelina on this exam. Interval placement of a right IJ central catheter with the tip overlying the atrioc aval junction. LUNGS AND PLEURA: The patient is rotated. The left costophrenic angle is excluded from the field-of- view. Persistent bibasilar airspace opacities. Small right pleural effusion. No obvious pneumothor ax. MEDIASTINUM AND HILAR STRUCTURES: Stable. HEART AND VASCULAR STRUCTURES: The heart is not enlarged. There is no overt vascular congestion. BONES: No acute findings. OTHER: Increased lucency under the right hemidiaphragm, probably representing that pneumoperitoneum s een on recent CT angiogram chest. IMPRESSION: Suboptimal patient positioning. No obvious pneumothorax status post central line placem ent. Bibasilar airspace opacities with small right pleural effusion. High location of the endotracheal tube, advancement by approximately 4-5 cm recommended. Known pneumoperitoneum. RECOMMENDATIONS: Advancement of the endotracheal tube. COMMENT: Pertinent findings on the imaging study reported as a CRITICAL RESULT to Dr. Stein At0 2:01 hours on 12/25/2016. Category of Critical Result: High location of the endotracheal tube, advancement recommended. TECHNICAL DOCUMENTATION: JOB ID: [id number] [place]-64 2010 [employer]- All Rights Reserved
[2016-12-25 02:29] LABS: ARTERIAL BLOOD BASE EXCESS 2.9 mmol/L; ARTERIAL BLOOD O2 SATURATION 94.3 % (94-98)
[2016-12-25] MEDS: PROPOFOL 100 ML IV PRN ×4 (02:56→21:30)
[2016-12-25] MEDS: DEXTROSE 5%-WATER 250 ML with NOREPINEPHRINE BITARTRATE 4 MG IV PRN ×4 (03:17→17:38)
[2016-12-25] MEDS: DEXTROSE 5%-WATER 250 ML with PHENYLEPHRINE HCL 40 MG IV PRN ×10 (03:18→21:09)
--- NOTE | 2016-12-25 03:44 | OPERATIVE REPORT E ---
Operative Report NAME: GUSTAVO HEARN : 1935 AGE: 81Y DATE OF SURGERY: 12/25/2016 ROOM: 612 PREOPERATIVE DIAGNOSIS: POOR VEINS FOR INTRAVENOUS ACCESS AND NEEDED CENTRAL LINE FOR MEDICATIONS. POSTOPERATIVE DIAGNOSIS: POOR VEINS FOR INTRAVENOUS ACCESS AND NEEDED CENTRAL LINE FOR MEDICATIONS. PROCEDURE: Insertion of right internal jugular vein triple-lumen catheter under ultrasound guidance. SURGEON: TEX MCKEON M.D. ANESTHESIA: Local MAC. INDICATIONS: This is an 81-year-old male, who underwent colectomy about 5 days ago, noted to have aspirated and now intubated for respiratory failure, needed IV medicines for pressors and other medications. DESCRIPTION OF PROCEDURE: The patient was placed in sight Trendelenburg position and the right neck prepped and draped in the usual sterile fashion. With the use of ultrasound, the right internal jugular vein was then identified and local anesthesia infiltrated on the neck. The internal jugular vein was cannulated and a triple-lumen catheter passed through the needle into the superior vena cava and the needle subsequently pulled out. Puncture site was enlarged and dilated. A triple-lumen catheter was then passed through the guidewire and inserted up about 16 cm towards the superior vena cava. Guidewire subsequently removed and the triple-lumen aspirated blood easily and irrigated with saline easily. Catheter was then anchored to the skin with 3-0 silk. Biopatch placed at the puncture site and a transparent dressing placed around the catheter. Chest x-ray will obtained for final placement, but it can be used right now for the pressors since it was a single shot into the internal jugular vein and unlikely to have pneumothorax. The patient had propofol just prior to the procedure. DICTATING PHYSICIAN: TEX MCKEON M.D. [id number] PHY#: [id number] ID: [id number] JOB#: [id number] ACCT: [id number] cc:TEX MCKEON M.D. >
--- NOTE | 2016-12-25 04:02 | RADIOLOGY REPORT (SQ) ---
EXAM DESCRIPTION: CHEST SINGLE VIEW COMPLETED DATE/TIME: 12/25/2016 3:26 am REASON FOR STUDY: et TUBE advanced COMPARISON: Chest x-ray 12/25/2016 at 01:00 hours EXAM PARAMETERS: NUMBER OF VIEWS: One view. TECHNIQUE: Single frontal radiographic view of the chest acquired on 12/25/2016 at 02:53 hours. RADIATION DOSE: NA LIMITATIONS: Patient positioning. FINDINGS: LUNGS AND PLEURA: The patient is rotated. The left costophrenic angle is excluded from th e [id number]. There are bilateral perihilar airspace opacities extending into the lower lobes. N o sizable pleural effusion or obvious pneumothorax. MEDIASTINUM AND HILAR STRUCTURES: Stable. HEART AND VASCULAR STRUCTURES: The heart is not enlarged. There is central vascular congestion. BONES: No acute findings. HARDWARE: Endotracheal tube tip approximately 3.4 cm above the sammy. NG tube terminating under the diaphragm. Right IJ central line with the tip overlying the atriocaval junction. OTHER: Redemonstration of pneumoperitoneum. IMPRESSION: Bilateral perihilar airspace opacities extending into the lower lobes, may represent pul monary edema and/or pneumonia. Central vascular congestion. Support devices in expected locations. Known pneumoperitoneum. TECHNICAL DOCUMENTATION: JOB ID: [id number] OH-[id number]
[2016-12-25] MEDS ORDERED: PHENYLEPHRINE HCL INJ/PF 10 MG/1 ML SDV ONE (04:08)
[2016-12-25] MEDS: NORMAL SALINE 1000 ML 1,000 ML IV PRN ×4 (05:02→21:09)
[2016-12-25] MEDS: PIPERACILLIN SODIUM/TAZOBACTAM 4.5 GM in NORMAL SALINE 100 ML IV SCH ×4 (05:03→23:31)
[2016-12-25 06:51] LABS: ARTERIAL BLOOD BASE EXCESS 0 mmol/L
[2016-12-25 06:52] LABS: HEMATOCRIT 37.5 % (37.9-51.0); HEMOGLOBIN 12.1 g/dL (13.5-17.0); HGB HCT DIFFERENCE -1.2; MEAN CORPUSCULAR HEMOGLOBIN 30.6 pg (27.0-33.4); MEAN CORPUSCULAR HGB CONC 32.1 g/dL (32.0-36.0); MEAN CORPUSCULAR VOLUME 95 fl (80-97); RED BLOOD COUNT 3.94 10^6/uL (4.35-5.55); RED CELL DISTRIBUTION WIDTH 13.7 % (11.5-14.0); WHITE BLOOD COUNT 27.8 10^3/uL (4.0-10.5)
[2016-12-25 07:03] LABS: ANION GAP 9 (5-19); BLOOD UREA NITROGEN 52 mg/dL (7-20); CALCIUM 7.7 mg/dL (8.4-10.2); CARBON DIOXIDE 27 mmol/L (22-30); CHLORIDE 103 mmol/L (98-107); CREATININE RESULT 2.22 mg/dL (0.52-1.25); GLUCOSE 203 mg/dL (75-110); POTASSIUM 3.7 mmol/L (3.6-5.0); SODIUM 138.9 mmol/L (137-145); TRIGLYCERIDES 83 mg/dL (<150)
[2016-12-25 07:13] LABS: BASOPHILS % (MANUAL) 0 % (0-2); EOSINOPHILS % (MANUAL) 0 % (0-6); LYMPHOCYTES % (MANUAL) 1 % (13-45); TOTAL CELLS COUNTED 100
[2016-12-25 07:15] LABS: POLYCHROMASIA SLIGHT; TOXIC GRANULATION SLIGHT; TOXIC VACUOLATION PRESENT
[2016-12-25 07:16] LABS: OVALOCYTES SLIGHT; PLATELET CLUMPS PRESENT; TARGET CELLS SLIGHT
[2016-12-25 07:18] LABS: BAND NEUTROPHILS % (MANUAL) 29 % (3-5)
[2016-12-25] MEDS ORDERED: DEXTROSE 40% GEL 15 GM TUBE PO PRN ×2 (08:26)
[2016-12-25] MEDS ORDERED: GLUCAGON,HUMAN RECOMB 1 MG INJ IM PRN (08:26)
[2016-12-25] MEDS ORDERED: DEXTROSE 50%-WATER 25 GM/50 ML DISP.SYRIN IV PRN ×2 (08:26)
--- NOTE | 2016-12-25 08:34 | PDOC PROGRESS REPORT ---
Subjective Progress Note for:: 12/25/16 Subjective:: Patient reportedly developed nausea and vomiting and oxygen saturation dropped. CT scan was negative for pulmonary embolism but did show atelectases and effusion in the lower lung van. Unable to rule out pneumonia. KUB showed ileus. The patient was intubated last night. He was transferred to the intensive care unit. at bedside who reported that he did vomit again last night. No temperature spikes reported. Physical Exam Vital Signs: Temp Pulse Resp BP Pulse Ox 97.3 F 88 28 H 128/48 H 95 12/25/16 04:00 12/25/16 07:08 12/25/16 07:32 12/25/16 07:32 12/25/16 07:32 Pulse Oximeter Continuous Start: 12/24/16 22: 07 Freq: Status: Complete Document 12/24/16 20:00 [facility] (Rec: 12/24/16 22:09 [facility] [email or web address]) Pulse Oximetry Assessment Oxygen Saturation (92-100) 100 Oxygen Flow Rate (L/min) 12 Oxygen Delivery Method Non-Rebreather Fraction of Inspired Oxygen (FIO2) 100 Equipment Usage Initial Set Up Continuous Pulse Oximeter 24 Hour Charge Charge Now Continuous SpO2 Machine # [id number] Intake & Output 12/24/16 12/25/16 12/26/16 06:59 06:59 06:59 Intake Total 820 3197 Output Total 1100 2915 Balance -280 282 Weight 91 kg 87.4 kg General appearance: PRESENT: no acute distress, other - Intubated and sedated Head exam: PRESENT: normocephalic Eye exam: PRESENT: conjunctiva pale Mouth exam: PRESENT: moist, neck supple Neck exam: ABSENT: JVD Respiratory exam: PRESENT: clear to auscultation annabel - Anteriorly bilateral, crackles - Few on the lower lung van bilateral, decreased breath sounds - Lower lung van bilateral Cardiovascular exam: PRESENT: RRR. ABSENT: gallop GI/Abdominal exam: PRESENT: hypoactive bowel sounds, soft. ABSENT: distended Extremities exam: PRESENT: other - Upper extremity edema improving. ABSENT: pedal edema Neurological exam: PRESENT: altered Focused psych exam: ABSENT: restlessness Skin exam: PRESENT: dry, warm. ABSENT: cyanosis Results Laboratory Results: 12/25/16 06:35 12/25/16 06:35 0712/24/16 12/24/16 16:50 16:50 18:45 WBC 28.2 H RBC 4.30 L Hgb 13.3 L Hct 40.7 MCV 95 MCH 30.9 MCHC 32.7 RDW 13.5 Plt Count 205 Seg Neutrophils % Lymphocytes % Monocytes % Eosinophils % Basophils % Absolute Neutrophils Absolute Lymphocytes Absolute Monocytes Absolute Eosinophils Absolute Basophils Carbonic Acid 1.26 HCO3/H2CO3 Ratio 24:1 ABG pH 7.48 H ABG pCO2 41.9 ABG pO2 54.4 L ABG HCO3 30.6 H ABG O2 Saturation 90.3 L ABG Base Excess 6.5 FiO2 100% Sodium 140.9 Potassium 4.5 Chloride 106 Carbon Dioxide 26 Anion Gap 9 BUN 48 H Creatinine 1.66 H Est GFR ( Amer) 48 L Est GFR (Non-Af Amer) 40 L Glucose 133 H Calcium 8.3 L Magnesium Total Bilirubin AST ALT Alkaline Phosphatase Total Protein Albumin Triglycerides 12/25/16 12/25/16 12/25/16 00:00 00:35 02:15 WBC RBC Hgb Hct MCV MCH MCHC RDW Plt Count Seg Neutrophils % Lymphocytes % Monocytes % Eosinophils % Basophils % Absolute Neutrophils Absolute Lymphocytes Absolute Monocytes Absolute Eosinophils Absolute Basophils Carbonic Acid 2.21 H 1.57 H HCO3/H2CO3 Ratio 13:1 18:1 ABG pH 7.23 L 7.37 ABG pCO2 73.3 H* 52.3 H ABG pO2 64.8 L 74.2 L ABG HCO3 30.1 H 29.2 H ABG O2 Saturation 87.9 L 94.3 ABG Base Excess 0.6 2.9 FiO2 100% 100% Sodium 141.7 Potassium 4.4 Chloride 106 Carbon Dioxide 28 Anion Gap 8 BUN 50 H Creatinine 2.16 H Est GFR ( Amer) 36 L Est GFR (Non-Af Amer) 30 L Glucose 181 H Calcium 7.7 L Magnesium 1.7 Total Bilirubin 0.8 AST 26 ALT 31 Alkaline Phosphatase 59 Total Protein 3.6 L Albumin 1.7 L Triglycerides 12/25/16 12/25/16 12/25/16 06:35 06:35 06:40 WBC 27.8 H RBC 3.94 L Hgb 12.1 L Hct 37.5 L MCV 95 MCH 30.6 MCHC 32.1 RDW 13.7 Plt Count 231 Seg Neutrophils % Not Reportable Lymphocytes % Not Reportable Monocytes % Not Reportable Eosinophils % Not Reportable Basophils % Not Reportable Absolute Neutrophils Not Reportable Absolute Lymphocytes Not Reportable Absolute Monocytes Not Reportable Absolute Eosinophils Not Reportable Absolute Basophils Not Reportable Carbonic Acid 1.35 HCO3/H2CO3 Ratio 18:1 ABG pH 7.37 ABG pCO2 44.8 ABG pO2 93.9 ABG HCO3 25.5 ABG O2 Saturation 97.0 ABG Base Excess 0 FiO2 85% Sodium 138.9 Potassium 3.7 Chloride 103 Carbon Dioxide 27 Anion Gap 9 BUN 52 H Creatinine 2.22 H Est GFR ( Amer) 35 L Est GFR (Non-Af Amer) 29 L Glucose 203 H Calcium 7.7 L Magnesium Total Bilirubin AST ALT Alkaline Phosphatase Total Protein Albumin Triglycerides 83 12/24/16 12/24/16 12/24/16 16:50 18:10 21:50 Creatine Kinase 29 L 72 Troponin I 0.036 12/24/16 12/25/16 12/25/16 21:50 00:35 00:35 Creatine Kinase 66 Troponin I 0.038 0.044 Impressions: Chest/Abdomen CTA 12/24/16 00:00 IMPRESSION: 1. NORMAL CTA OF THE CHEST. NO PULMONARY EMBOLI. 2. MODERATE BILATERAL PLEURAL EFFUSIONS. DENSE CONSOLIDATION IN THE LOWER LOBES DUE TO ATELECTASIS. CANNOT EXCLUDE PNEUMONIA. 3. FINDINGS IN THE UPPER ABDOMEN DESCRIBED. POSTOPERATIVE TINY BUBBLES OF FREE AIR. DISTENDED STOMACH AND VISUALIZED SMALL BOWEL. KUB X-Ray 12/24/16 00:00 IMPRESSION: DIFFUSE SMALL BOWEL DILATION. MAY BE DUE TO POSTOPERATIVE ILEUS ALTHOUGH OBSTRUCTION CANNOT BE EXCLUDED. Chest X-Ray 12/25/16 00:00 IMPRESSION: Bilateral perihilar airspace opacities extending into the lower lobes, may represent pulmonary edema and/or pneumonia. Central vascular congestion. Support devices in expected locations. Known pneumoperitoneum. Assessment & Plan - Diagnosis (1) Acute hypoxemic respiratory failure Is this a current diagnosis for this admission?: Yes (2) Aspiration pneumonia Qualifiers: Aspiration pneumonia type: unspecified Laterality: bilateral Lung location: lower lobe of lung Qualified Code(s): J69.0 - Pneumonitis due to inhalation of food and vomit Is this a current diagnosis for this admission?: Yes (3) Adynamic ileus Is this a current diagnosis for this admission?: Yes (4) Toxic megacolon Is this a current diagnosis for this admission?: Yes (5) Sigmoid volvulus Is this a current diagnosis for this admission?: Yes (6) Acute renal failure Qualifiers: Acute renal failure type: unspecified Qualified Code(s): N17.9 - Acute kidney failure, unspecified Is this a current diagnosis for this admission?: Yes (7) Chronic kidney disease, stage II (mild) Is this a current diagnosis for this admission?: Yes (8) Nodule of spleen Is this a current diagnosis for this admission?: Yes (9) Essential hypertension Is this a current diagnosis for this admission?: Yes (10) Hyperlipidemia, acquired Is this a current diagnosis for this admission?: Yes (11) BPH (benign prostatic hyperplasia) Qualifiers: Lower urinary tract symptom presence: unspecified whether lower urinary tract symptoms present Qualified Code(s): N40.0 - Benign prostatic hyperplasia without lower urinary tract symptoms Is this a current diagnosis for this admission?: Yes (12) Atherosclerotic vascular disease Is this a current diagnosis for this admission?: Yes (13) Hypotension Qualifiers: Hypotension type: unspecified hypotension type Qualified Code(s): I95.9 - Hypotension, unspecified Is this a current diagnosis for this admission?: Yes (14) Hypoxia Is this a current diagnosis for this admission?: Yes - Time Time Spent with patient: 25-34 minutes - Plan Summary Plan Summary: Antibiotics were shifted to Zosyn and vancomycin. Pulmonary was consulted for ventilator management. Follow cultures. Continue IV hydration. Monitor ileus. Monitor electrolytes. DVT prophylaxis with Lovenox.
[2016-12-25 08:47] LABS: AMORPHOUS SEDIMENT,URINE TRACE /HPF; APPEARANCE,URINE CLOUDY; BILIRUBIN,URINE NEGATIVE (NEGATIVE); GLUCOSE, URINE NEGATIVE (NEGATIVE); KETONES,URINE NEGATIVE (NEGATIVE); LEUKOCYTE ESTERASE,URINE NEGATIVE (NEGATIVE); NITRITE,URINE NEGATIVE (NEGATIVE); PROTEIN,URINE 30 mg/dL (NEGATIVE); URINE SPECIFIC GRAVITY 1.034; UROBILINOGEN,URINE NEGATIVE mg/dL (<2.0)
[2016-12-25] MEDS: PANTOPRAZOLE SODIUM 40 MG VIAL IV SCH ×2 (09:23→21:09)
--- NOTE | 2016-12-25 09:50 | Progress Note ---
Provider Note Provider Note: December 24, 2016: Late evening hours, I was contacted by patient's floor nurse, stating that patient had vomited with suspected aspiration, with patient tachypneic and in some respiratory distress. Rapid response was called, and I went to the bedside moments later. Exam revealed elderly somewhat chronically ill-appearing male who did appear to be in some distress, with slightly labored respirations, making mild use of accessory respiratory muscles. Coarse breath sounds bilaterally, which per nursing staff, were not present prior to his vomiting. Patient was awake and alert, but again appeared to be fatigued and in some respiratory distress. Chart review was performed. Considering his overall remarkable clinical history since admission to the hospital, decision was made to transfer the patient to the intensive care unit for intubation, which was accomplished without undue difficulty. I did discuss with patient our plans, and he agreed. Unsuccessful attempts made by staff to contact family. Patient became hypotensive shortly after intubation, necessitating Gonsalo- Synephrine infusion, along with further IV fluid boluses. 50 minutes critical care time spent in evaluation and management of patient, including direct patient evaluation, multiple discussions with nursing staff, and entering of multiple orders into the electronic health record. December 25, 2016: At 12:30 AM, we were eventually able to contact by telephone. I discussed with her in amy layperson's terms that the patient was quite critically ill, discussing our treatment so far. She seemed to accept this well. Antibiotic adjustments were made, along with addition of Levophed drip to the Gonsalo-Synephrine drip. Central line was placed by the on-call surgicalist. Post intubation chest x-rays were obtained. Approximately 2 AM, was contacted by the on-call radiologist, stating that there seem to be a bit more free air in the abdominal cavity than she would expect given this gentlemen's history. Patient was discussed with radiologist. Subsequent physical exam revealed abdomen to be slightly distended, but quite soft, with no evidence of peritoneal signs or guarding. At 2:10 AM this morning, I did discuss radiologist concerns by phone with on- call surgicalist, Dr. Osorio. At 5 AM, jason and I believe jason's arrived in the intensive care unit waiting room. With intensive care unit nurse present, I discussed with them in amy layperson's terms that patient was quite critically ill. Events of the evening were discussed. I did tell them that I hoped he would survive, but could not guarantee it. Again, I reiterated to them that patient was quite critically ill. 65 minutes critical care time spent in evaluation management of patient, including direct patient evaluation, multiple discussions with nursing staff, review of multiple x-ray images, along with telephone discussion with on-call radiologist, in person and telephone discussions with surgicalist, entering of further multiple orders into the electronic health record, along with the above- noted discussion with family. Patient discussed in detail with day hospitalist team.
[2016-12-25] MEDS ORDERED: TOLTERODINE TARTRATE 1 MG TABLET NG SCH (10:00)
--- NOTE | 2016-12-25 10:02 | EKG REPORT ---
SEVERITY:- BORDERLINE ECG - SINUS RHYTHM VENTRICULAR PREMATURE COMPLEX BORDERLINE T ABNORMALITIES, ANT-LAT LEADS : Confirmed by: Larry Barker MD 25-Dec-2016 10:00:59
--- NOTE | 2016-12-25 10:54 | PROGRESS NOTE E ---
Progress Note NAME: GUSTAVO HEARN : 1935 AGE: 81Y DATE: 12/25/2016 ROOM: 612 SUBJECTIVE: The patient was intubated last night for deterioration of his pulmonary status, likely due to aspiration. NG tube was placed last night and drained dark fluid. He was then placed on IV Protonix, likely due gastritis. His white count is up to 28,200 yesterday and this morning is 27,800. Chest x-ray showed evidence of aspiration. OBJECTIVE: His abdomen remains soft. It is nontender. The incision site looks good and the colostomy is functioning. PLAN: His main problem now is pulmonary. He is getting antibiotics and on the vent for the time being. He is being managed closely by the medical hospitalist. DICTATING PHYSICIAN: TEX MCKEON M.D. [id number] PHY#: [id number] ID: [id number] JOB#: [id number] ACCT: [id number] cc: >
--- NOTE | 2016-12-25 10:55 | RADIOLOGY REPORT (SQ) ---
EXAM DESCRIPTION: CT ABD/PELVIS ORAL ONLY COMPLETED DATE/TIME: 12/25/2016 10:40 am REASON FOR STUDY: Ileus K56.2 VOLVULUS COMPARISON: None. TECHNIQUE: CT scan of the abdomen and pelvis performed without intravenous or oral contrast. Images reviewed with lung, soft tissue, and bone windows. Reconstructed coronal and sagittal MPR images revi ewed. All images stored on PACS. All CT scanners at this facility use dose modulation, iterative reconstruction, and/or weight based d osing when appropriate to reduce radiation dose to as low as reasonably achievable (ALARA). [facility]: Dose Right [facility]: CareDose [facility]: Dose Right [facility]: Teradose 4D [facility]: [employer] RADIATION DOSE: Up-to-date CT equipment and radiation dose reduction techniques were employed. CTDIv ol: 15.7 mGy. DLP: 1022 mGy-cm.mGy. LIMITATIONS: None. FINDINGS: LOWER CHEST: Lower lobe consolidations with small -moderate pleural effusions. NON-CONTRASTED LIVER, SPLEEN, ADRENALS: Evaluation limited by lack of IV contrast. Probable small he patic cysts. No identified significant masses. PANCREAS: No masses. No peripancreatic inflammatory changes. GALLBLADDER: Surgically absent. RIGHT KIDNEY AND URETER: Cortical cysts. No suspicious masses. Assessment limited by lack of IV cont rast. No significant calcifications. No hydronephrosis or hydroureter. LEFT KIDNEY AND URETER: Cortical cysts. No suspicious masses. Assessment limited by lack of IV contr ast. No significant calcifications. No hydronephrosis or hydroureter. AORTA AND RETROPERITONEUM: No aneurysm. No retroperitoneal masses or adenopathy. BOWEL AND PERITONEAL CAVITY: Nasogastric tube with the tip in the stomach. Contrast in the stomach a nd duodenum. Previous subtotal colectomy with rectal pouch. 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 Moderate dilation of the stomach and majority of the small bowel. The more distal small bowel is no t distended. There does appear to be transition from dilated small bowel to non dilated small bowel in the midline just posterior to the abdominal wall incision. Series 3 images 70 -80. Moderate free fluid. Postoperative free air. APPENDIX: Surgically absent. PELVIS, BLADDER, AND ABDOMINAL WALL:Midline incision with skin clemente. No abnormal masses. Free fl uid. Catheter in the bladder. BONES: No significant findings. OTHER: No other significant finding. IMPRESSION: 1. SURGICAL CHANGES DESCRIBED. MODERATE DILATION OF THE STOMACH AND MAJORITY OF THE SMALL BOWEL. THERE DOES APPEAR TO BE A TRANSITION IN THE DISTAL SMALL BOWEL BEFORE THE ILEOSTOMY. THIS COULD BE DUE TO ASYMMETRIC POSTOPERATIVE ILEUS. PARTIAL SMALL BOWEL OBSTRUCTION COULD BE PRESENT ALTHOUGH UNU SUAL SO SOON AFTER SURGERY. MODERATE FREE FLUID WELL POSTOPERATIVE FREE AIR. 2. BILATERAL LOWER LOBE CONSOLIDATIONS WITH SMALL -MODERATE PLEURAL EFFUSIONS. 3. OTHER STABLE INCIDENTAL FINDINGS ABOVE. TECHNICAL DOCUMENTATION: JOB ID: [id number] Quality ID # [id number]: Final reports with documentation of one or more dose reduction techniques (e.g., Au tomated exposure control, adjustment of the mA and/or kV according to patient size, use of iterative reconstruction technique) 2010 [employer]- All Rights Reserved
[2016-12-25] MEDS ORDERED: ENOXAPARIN SODIUM INJ 40 MG/0.4 ML DISP.SYRIN SUBCUT ONE (13:00)
--- NOTE | 2016-12-25 18:36 | PDOC CONSULTATION ---
Consultation Consult Date: 12/25/16 Attending physician:: JEREMY JACKSON Consult reason:: resp failure History of Present Illness Admission Date/PCP: 12/19/16 06:53 ANJALI AVENDANO MD History of Present Illness: all information from chart GUSTAVO HEARN is a 81 year old male, with history of hypertension, hyperlipidemia, atherosclerotic vascular disease has been dealing with abdominal pain for several days. The patient was healthy according to the spouse who is at bedside. Patient is intubated, on diprivan drip, and unable to give information. Unobtainable from the patient therefore family provided most of the history. Patient was doing well playing golf up until this weekend patient started to develop recurrence of abdominal pain where patient had a few visits in the emergency room in the past where a CT scan showed sigmoid volvulus with gaseous distention of the colon, and patient had endoscopic decompression in [facility]. Patient is being followed by surgical service and as the patient's recurrent abdominal pain the patient occurred was advised to go to the hospital, and eventually underwent exploratory laparotomy. 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 Patient had a total colectomy with ileostomy placement and splenic biopsy. Patient was maintained on mechanical ventilator postoperatively, was hypotensive requiring vasopressors including dopamine and Levophed. Currently he is only on Levophed. Patient was given 9- 10 L of IV fluid resuscitation. Patient's creatinine was noted to be elevated.. Past Medical History Cardiac Medical History: Reports: Hyperlipidema - ON MEDS, Hypertension - ON MEDS, Other - Atherosclerotic vascular disease Denies: Atrial Fibrillation, Congestive Heart Failure, Coronary Artery Disease, Myocardial Infarction, Peripheral Vascular Disease, Heart Murmur Pulmonary Medical History: Neurological Medical History: Renal/ Medical History: Reports: Other - BPH Denies: End Stage Renal Disease Malignancy Medical History: GI Medical History: Reports: Gastroesophageal Reflux Disease Denies: Crohn's Disease, Hepatitis, Hiatal Hernia Musculoskeltal Medical History: Hematology: Past Surgical History Past Surgical History: Reports: Cardiac Catheterization, Carotid Endarterectomy - Right, Cholecystectomy, Other - Exploratory laparotomy with total colectomy and splenic biopsy, Denies: Appendectomy, Colostomy, Coronary Artery Bypass Graft, Gastric Bypass Surgery, Herniorrhaphy, Pacemaker, Tonsillectomy Social History Information Source: [facility] Records Lives with: Family Smoking Status: Former Smoker Passive smoke exposure as: Both Frequency of Alcohol Use: Occasional Hx Recreational Drug Use: No Drugs: None Hx Prescription Drug Abuse: No - Advance Directive Resuscitation Status: Full Code Family History Family History: Malignancy - Colon cancer Parental Family History Reviewed: No Children Family History Reviewed: No Sibling(s) Family History Reviewed.: No Medication/Allergy Home Medications: Aspirin [Ecotrin 81 mg EC Tablet] 81 mg PO ASDIR 07/19/12 Lisinopril [Prinivil 20 mg Tablet] 20 mg PO DAILY 07/19/12 Multivitamin [Multiple Vitamins] 1 each PO DAILY 07/19/12 Pravastatin Sodium [Pravachol] 40 mg PO QHS 07/19/12 Amlodipine Besylate [Norvasc 5 mg Tablet] 5 mg PO DAILY 01/14/13 Tolterodine Tartrate [Detrol LA] 4 mg PO DAILY 01/14/13 Finasteride [Proscar 5 mg Tablet] 5 mg PO DAILY 12/02/15 Docusate Sodium [Colace 100 mg Capsule] 100 mg PO BID #60 capsule 12/12/16 Polyethylene Glycol 3350 [Miralax] 1 cap PO DAILY #1 bot 12/12/16 Pantoprazole Sodium 20 mg PO DAILY 12/16/16 Allergies/Adverse Reactions: No Known Allergies Allergy (Verified 12/16/16 11:33) Review of Systems ROS unobtainable: Due to endotracheal tube Physical Exam Vital Signs: Temp Pulse Resp BP Pulse Ox 97.3 F 88 28 H 128/48 H 95 12/25/16 04:00 12/25/16 07:08 12/25/16 07:32 12/25/16 07:32 12/25/16 07:32 Pulse Oximeter Continuous Start: 12/24/16 22: 07 Freq: Status: Complete Document 12/24/16 20:00 [facility] (Rec: 12/24/16 22:09 [facility] [email or web address]) Pulse Oximetry Assessment Oxygen Saturation (92-100) 100 Oxygen Flow Rate 12 Oxygen Delivery Method Non-Rebreather Fraction of Inspired Oxygen (FIO2) 100 Equipment Usage Initial Set Up Continuous Pulse Oximeter 24 Hour Charge Charge Now Continuous SpO2 Machine # [id number] Intake & Output 12/24/16 12/25/16 12/26/16 06:59 06:59 06:59 Intake Total 820 3197 Output Total 1100 2915 Balance -280 282 Weight 91 kg 87.4 kg General appearance: PRESENT: no acute distress, disheveled, well-developed Head exam: PRESENT: atraumatic, normocephalic Eye exam: PRESENT: conjunctiva pale Mouth exam: PRESENT: dry mucosa, neck supple, tongue midline, other - ET tube Neck exam: ABSENT: carotid bruit, JVD, lymphadenopathy, thyromegaly Respiratory exam: PRESENT: decreased breath sounds, prolonged expiratory phas, rhonchi, symmetrical, unlabored Cardiovascular exam: PRESENT: RRR, +S1, +S2 Pulses: PRESENT: normal radial pulses GI/Abdominal exam: PRESENT: normal bowel sounds, soft. ABSENT: distended, guarding, mass, organolmegaly, rebound, tenderness Skin exam: PRESENT: dry, warm Results Laboratory Results: 12/25/16 06:35 12/25/16 06:35 12/24/16 12/24/16 12/24/16 16:50 16:50 18:45 WBC 28.2 H RBC 4.30 L Hgb 13.3 L Hct 40.7 MCV 95 MCH 30.9 MCHC 32.7 RDW 13.5 Plt Count 205 Seg Neutrophils % Lymphocytes % Monocytes % Eosinophils % Basophils % Absolute Neutrophils Absolute Lymphocytes Absolute Monocytes Absolute Eosinophils Absolute Basophils Carbonic Acid 1.26 HCO3/H2CO3 Ratio 24:1 ABG pH 7.48 H ABG pCO2 41.9 ABG pO2 54.4 L ABG HCO3 30.6 H ABG O2 Saturation 90.3 L ABG Base Excess 6.5 FiO2 100% Sodium 140.9 Potassium 4.5 Chloride 106 Carbon Dioxide 26 Anion Gap 9 BUN 48 H Creatinine 1.66 H Est GFR ( Amer) 48 L Est GFR (Non-Af Amer) 40 L Glucose 133 H Calcium 8.3 L Magnesium Total Bilirubin AST ALT Alkaline Phosphatase Total Protein Albumin Triglycerides 12/25/16 12/25/16 12/25/16 00:00 00:35 02:15 WBC RBC Hgb Hct MCV MCH MCHC RDW Plt Count Seg Neutrophils % Lymphocytes % Monocytes % Eosinophils % Basophils % Absolute Neutrophils Absolute Lymphocytes Absolute Monocytes Absolute Eosinophils Absolute Basophils Carbonic Acid 2.21 H 1.57 H HCO3/H2CO3 Ratio 13:1 18:1 ABG pH 7.23 L 7.37 ABG pCO2 73.3 H* 52.3 H ABG pO2 64.8 L 74.2 L ABG HCO3 30.1 H 29.2 H ABG O2 Saturation 87.9 L 94.3 ABG Base Excess 0.6 2.9 FiO2 100% 100% Sodium 141.7 Potassium 4.4 Chloride 106 Carbon Dioxide 28 Anion Gap 8 BUN 50 H Creatinine 2.16 H Est GFR ( Amer) 36 L Est GFR (Non-Af Amer) 30 L Glucose 181 H Calcium 7.7 L Magnesium 1.7 Total Bilirubin 0.8 AST 26 ALT 31 Alkaline Phosphatase 59 Total Protein 3.6 L Albumin 1.7 L Triglycerides 12/25/16 12/25/16 12/25/16 06:35 06:35 06:40 WBC 27.8 H RBC 3.94 L Hgb 12.1 L Hct 37.5 L MCV 95 MCH 30.6 MCHC 32.1 RDW 13.7 Plt Count 231 Seg Neutrophils % Not Reportable Lymphocytes % Not Reportable Monocytes % Not Reportable Eosinophils % Not Reportable Basophils % Not Reportable Absolute Neutrophils Not Reportable Absolute Lymphocytes Not Reportable Absolute Monocytes Not Reportable Absolute Eosinophils Not Reportable Absolute Basophils Not Reportable Carbonic Acid 1.35 HCO3/H2CO3 Ratio 18:1 ABG pH 7.37 ABG pCO2 44.8 ABG pO2 93.9 ABG HCO3 25.5 ABG O2 Saturation 97.0 ABG Base Excess 0 FiO2 85% Sodium 138.9 Potassium 3.7 Chloride 103 Carbon Dioxide 27 Anion Gap 9 BUN 52 H Creatinine 2.22 H Est GFR ( Amer) 35 L Est GFR (Non-Af Amer) 29 L Glucose 203 H Calcium 7.7 L Magnesium Total Bilirubin AST ALT Alkaline Phosphatase Total Protein Albumin Triglycerides 83 12/24/16 12/24/16 12/24/16 16:50 18:10 21:50 Creatine Kinase 29 L 72 Troponin I 0.036 12/24/16 12/25/16 12/25/16 21:50 00:35 00:35 Creatine Kinase 66 Troponin I 0.038 0.044 Impressions: Chest/Abdomen CTA 12/24/16 00:00 IMPRESSION: 1. NORMAL CTA OF THE CHEST. NO PULMONARY EMBOLI. 2. MODERATE BILATERAL PLEURAL EFFUSIONS. DENSE CONSOLIDATION IN THE LOWER LOBES DUE TO ATELECTASIS. CANNOT EXCLUDE PNEUMONIA. 3. FINDINGS IN THE UPPER ABDOMEN DESCRIBED. POSTOPERATIVE TINY BUBBLES OF FREE AIR. DISTENDED STOMACH AND VISUALIZED SMALL BOWEL. KUB X-Ray 12/24/16 00:00 IMPRESSION: DIFFUSE SMALL BOWEL DILATION. MAY BE DUE TO POSTOPERATIVE ILEUS ALTHOUGH OBSTRUCTION CANNOT BE EXCLUDED. Chest X-Ray 12/25/16 00:00 IMPRESSION: Bilateral perihilar airspace opacities extending into the lower lobes, may represent pulmonary edema and/or pneumonia. Central vascular congestion. Support devices in expected locations. Known pneumoperitoneum. Assessment & Plan - Diagnosis (1) Acute renal failure Qualifiers: Acute renal failure type: unspecified Qualified Code(s): N17.9 - Acute kidney failure, unspecified Is this a current diagnosis for this admission?: Yes (3) Aspiration into respiratory tract Is this a current diagnosis for this admission?: Yes (4) Septic shock Is this a current diagnosis for this admission?: Yes - Time Critical Time spent with patient: 35 or more minutes - 60 min
[2016-12-25] MEDS ORDERED: MORPHINE SULFATE 10 MG/ML INJ IV PRN (20:00)
[2016-12-25 22:16] LABS: ANION GAP 6 (5-19); BLOOD UREA NITROGEN 50 mg/dL (7-20); CALCIUM 7.1 mg/dL (8.4-10.2); CARBON DIOXIDE 27 mmol/L (22-30); CHLORIDE 105 mmol/L (98-107); CREATINE KINASE 26 U/L (55-170); GLUCOSE 131 mg/dL (75-110); MAGNESIUM 1.8 mg/dL (1.6-2.3); POTASSIUM 3.5 mmol/L (3.6-5.0); SODIUM 137.8 mmol/L (137-145)
[2016-12-25 22:28] LABS: CREATINE KINASE MB 0.59 ng/mL (<4.55); TROPONIN I 0.033 ng/mL
[2016-12-25] MEDS ORDERED: MAGNESIUM SULFATE/D5W 1 GM/100 ML RTUPB IV ONE (23:15)
[2016-12-26 00:39] LABS: HEMATOCRIT 31.3 % (37.9-51.0); HEMOGLOBIN 10.3 g/dL (13.5-17.0); HGB HCT DIFFERENCE -0.4; MEAN CORPUSCULAR HGB CONC 32.8 g/dL (32.0-36.0); MEAN CORPUSCULAR VOLUME 95 fl (80-97); RED BLOOD COUNT 3.31 10^6/uL (4.35-5.55); RED CELL DISTRIBUTION WIDTH 13.8 % (11.5-14.0); WHITE BLOOD COUNT 23.5 10^3/uL (4.0-10.5)
[2016-12-26 00:56] LABS: BAND NEUTROPHILS % (MANUAL) 6 % (3-5); BASOPHILS % (MANUAL) 0 % (0-2); EOSINOPHILS % (MANUAL) 1 % (0-6); LYMPHOCYTES % (MANUAL) 2 % (13-45); TOTAL CELLS COUNTED 100
[2016-12-26 00:58] LABS: BURR CELLS SLIGHT; OVALOCYTES 1+; POIKILOCYTOSIS 1+
[2016-12-26] MEDS: POTASSI CL 20 MEQ/50 ML RIDER 20 MEQ/50 ML RTUPB IV SCH ×2 (01:00→02:59)
[2016-12-26] MEDS: NORMAL SALINE 1000 ML 1,000 ML IV PRN ×3 (03:08→21:18)
[2016-12-26] MEDS: DEXTROSE 5%-WATER 250 ML with NOREPINEPHRINE BITARTRATE 4 MG IV PRN ×2 (03:09)
[2016-12-26] MEDS: PROPOFOL 100 ML IV PRN ×2 (04:47→17:14)
[2016-12-26 04:49] LABS: ARTERIAL BLOOD BASE EXCESS 3.2 mmol/L; ARTERIAL BLOOD O2 SATURATION 97.4 % (94-98)
[2016-12-26 05:01] LABS: HEMATOCRIT 30.6 % (37.9-51.0); HGB HCT DIFFERENCE -0.6; MEAN CORPUSCULAR HEMOGLOBIN 30.7 pg (27.0-33.4); MEAN CORPUSCULAR HGB CONC 32.8 g/dL (32.0-36.0); MEAN CORPUSCULAR VOLUME 94 fl (80-97); RED BLOOD COUNT 3.26 10^6/uL (4.35-5.55); RED CELL DISTRIBUTION WIDTH 14.2 % (11.5-14.0); WHITE BLOOD COUNT 25.4 10^3/uL (4.0-10.5)
[2016-12-26 05:03] LABS: ALANINE AMINOTRANSFERASE 33 U/L (21-72); ALBUMIN 1.6 g/dL (3.5-5.0); ALKALINE PHOSPHATASE 58 U/L (38-126); ANION GAP 6 (5-19); ASPARTATE AMINO TRANSFERASE 20 U/L (17-59); BILIRUBIN,DIRECT 0.4 mg/dL (0.0-0.4); BILIRUBIN,TOTAL 0.5 mg/dL (0.2-1.3); BLOOD UREA NITROGEN 50 mg/dL (7-20); CALCIUM 7.1 mg/dL (8.4-10.2); CARBON DIOXIDE 26 mmol/L (22-30); CHLORIDE 107 mmol/L (98-107); CREATININE RESULT 2.05 mg/dL (0.52-1.25); GLUCOSE 125 mg/dL (75-110); MAGNESIUM 2.1 mg/dL (1.6-2.3); PHOSPHORUS 3.4 mg/dL (2.5-4.5); POTASSIUM 3.8 mmol/L (3.6-5.0); SODIUM 138.8 mmol/L (137-145); TOTAL PROTEIN 3.5 g/dL (6.3-8.2)
[2016-12-26 05:06] LABS: PROTHROMBIN TIME 16.3 SEC (11.4-15.4)
[2016-12-26 05:07] LABS: PARTIAL THROMBOPLASTIN TIME 38.2 SEC (23.5-35.8)
[2016-12-26] MEDS: PIPERACILLIN SODIUM/TAZOBACTAM 4.5 GM in NORMAL SALINE 100 ML IV SCH ×4 (05:27→23:30)
[2016-12-26 05:52] LABS: BAND NEUTROPHILS % (MANUAL) 4 % (3-5); BASOPHILS % (MANUAL) 0 % (0-2); EOSINOPHILS % (MANUAL) 2 % (0-6); LYMPHOCYTES % (MANUAL) 7 % (13-45); TOTAL CELLS COUNTED 100
[2016-12-26 05:54] LABS: ANISOCYTOSIS SLIGHT; BURR CELLS SLIGHT; OVALOCYTES 1+; POIKILOCYTOSIS 1+; TOXIC GRANULATION 2+
[2016-12-26] MEDS: DEXTROSE 5%-WATER 250 ML with PHENYLEPHRINE HCL 40 MG IV PRN ×2 (06:46)
--- NOTE | 2016-12-26 07:25 | EKG REPORT ---
SEVERITY:- ABNORMAL ECG - SINUS TACHYCARDIA RUN OF VENTRICULAR PREMATURE COMPLEXES ABERRANT COMPLEX, POSSIBLY SUPRAVENTRICULAR RIGHT ATRIAL ABNORMALITY NONSPECIFIC IVCD WITH LAD ARTIFACTS PREVENTS ACCURATE INTERPRETATION : Confirmed by: Keely Contreras 26-Dec-2016 07:24:32
--- NOTE | 2016-12-26 07:26 | EKG REPORT ---
SEVERITY:- ABNORMAL ECG - SINUS RHYTHM NONSPECIFIC INTRAVENTRICULAR CONDUCTION DELAY BORDERLINE ST DEPRESSION, ANTEROLATERAL LEADS : Confirmed by: Keely Contreras 26-Dec-2016 07:25:18
--- NOTE | 2016-12-26 07:51 | RADIOLOGY REPORT (SQ) ---
EXAM DESCRIPTION: CHEST SINGLE VIEW COMPLETED DATE/TIME: 12/26/2016 6:38 am REASON FOR STUDY: resp failure COMPARISON: Chest x-ray 12/25/2016. EXAM PARAMETERS: NUMBER OF VIEWS: One view TECHNIQUE: Single frontal radiograph of the chest. RADIATION DOSE: N/A LIMITATIONS: Pacemaker head is partially obscuring the right hemithorax. FINDINGS: TEMPORARY SUPPORT DEVICES:ETT in expected location. Enteric tube coursing along the midli ne and terminates under the diaphragm, its tip is not included on this exam. Right IJ central line wi th the tip overlying the atriocaval junction. LUNGS AND PLEURA: There is a small left pleural effusion. There are bilateral perihilar airspace opa cities. No pneumothorax. MEDIASTINUM AND HILAR STRUCTURES: No masses. Contour normal. HEART AND VASCULAR STRUCTURES: The heart is not enlarged. There is central vascular congestion. BONES: No acute findings. OTHER: Redemonstration of pneumoperitoneum. IMPRESSION: Bilateral perihilar airspace opacities. Small left pleural effusion. Central vascular congestion. Pneumoperitoneum. TECHNICAL DOCUMENTATION: JOB ID: [id number] [employer]- All Rights Reserved
--- NOTE | 2016-12-26 08:45 | EKG REPORT ---
SEVERITY:- ABNORMAL ECG - SINUS RHYTHM ARTIFACTS NOTED ABNORMAL T, CONSIDER ISCHEMIA, DIFFUSE LEADS PROLONGED QT INTERVAL : Confirmed by: Keely Contreras 26-Dec-2016 08:44:03
--- NOTE | 2016-12-26 09:12 | PDOC PROGRESS REPORT ---
Subjective Progress Note for:: 12/26/16 Subjective:: Creatinine trending down. Ct of abdomnen showed distended stomach and small bowel. No temperature spikes reported. CXR showed some congestion. Remained intubated and on levophed and ria-synephrine. Nephrology consulted. Physical Exam Vital Signs: Temp Pulse Resp BP Pulse Ox 98.6 F 73 19 108/51 L 96 12/26/16 08:00 12/26/16 08:00 12/26/16 08:00 12/26/16 08:00 12/26/16 08:00 Pulse Oximeter Continuous Start: 12/24/16 22: 07 Freq: Status: Complete Document 12/24/16 20:00 [facility] (Rec: 12/24/16 22:09 [facility] [email or web address]) Pulse Oximetry Assessment Oxygen Saturation (92-100) 100 Oxygen Flow Rate (L/min) 12 Oxygen Delivery Method Non-Rebreather Fraction of Inspired Oxygen (FIO2) 100 Equipment Usage Initial Set Up Continuous Pulse Oximeter 24 Hour Charge Charge Now Continuous SpO2 Machine # [id number] Intake & Output 12/25/16 12/26/16 12/27/16 06:59 06:59 06:59 Intake Total 3197 7942 Output Total 2915 4325 185 Balance 282 3617 -185 Weight 87.4 kg 91.6 kg General appearance: PRESENT: no acute distress, other - intubated and sedated. Head exam: PRESENT: normocephalic Eye exam: PRESENT: conjunctiva pale Mouth exam: PRESENT: moist, neck supple Neck exam: ABSENT: JVD Respiratory exam: PRESENT: rhonchi - few B/L, unlabored. ABSENT: wheezes Cardiovascular exam: PRESENT: RRR. ABSENT: gallop GI/Abdominal exam: PRESENT: soft. ABSENT: distended Extremities exam: PRESENT: +1 edema - upper extremity B/L, other - trace pre- tibial edema, Neurological exam: PRESENT: altered - sedated Skin exam: PRESENT: dry, warm. ABSENT: cyanosis Results Laboratory Results: 12/26/16 04:25 12/26/16 04:25 12/25/16 12/25/16 12/25/16 13:00 21:50 21:50 WBC 23.5 H RBC 3.31 L Hgb 10.3 L Hct 31.3 L MCV 95 MCH 31.0 MCHC 32.8 RDW 13.8 Plt Count 170 Seg Neutrophils % Not Reportable Lymphocytes % Not Reportable Monocytes % Not Reportable Eosinophils % Not Reportable Basophils % Not Reportable Absolute Neutrophils Not Reportable Absolute Lymphocytes Not Reportable Absolute Monocytes Not Reportable Absolute Eosinophils Not Reportable Absolute Basophils Not Reportable Carbonic Acid HCO3/H2CO3 Ratio ABG pH ABG pCO2 ABG pO2 ABG HCO3 ABG O2 Saturation ABG Base Excess FiO2 Sodium 137.8 Potassium 3.5 L Chloride 105 Carbon Dioxide 27 Anion Gap 6 BUN 50 H Creatinine 2.20 H Est GFR ( Amer) 35 L Est GFR (Non-Af Amer) 29 L Glucose 131 H Lactic Acid 1.7 Calcium 7.1 L Phosphorus Magnesium 1.8 Total Bilirubin AST ALT Alkaline Phosphatase Total Protein Albumin 12/26/16 12/26/16 12/26/16 04:25 04:25 04:25 WBC 25.4 H RBC 3.26 L Hgb 10.0 L Hct 30.6 L MCV 94 MCH 30.7 MCHC 32.8 RDW 14.2 H Plt Count 171 Seg Neutrophils % Not Reportable Lymphocytes % Not Reportable Monocytes % Not Reportable Eosinophils % Not Reportable Basophils % Not Reportable Absolute Neutrophils Not Reportable Absolute Lymphocytes Not Reportable Absolute Monocytes Not Reportable Absolute Eosinophils Not Reportable Absolute Basophils Not Reportable Carbonic Acid 1.22 HCO3/H2CO3 Ratio 22:1 ABG pH 7.45 ABG pCO2 40.4 ABG pO2 92.6 ABG HCO3 27.4 H ABG O2 Saturation 97.4 ABG Base Excess 3.2 FiO2 45% Sodium 138.8 Potassium 3.8 Chloride 107 Carbon Dioxide 26 Anion Gap 6 BUN 50 H Creatinine 2.05 H Est GFR ( Amer) 38 L Est GFR (Non-Af Amer) 31 L Glucose 125 H Lactic Acid Calcium 7.1 L Phosphorus 3.4 Magnesium 2.1 Total Bilirubin 0.5 AST 20 ALT 33 Alkaline Phosphatase 58 Total Protein 3.5 L Albumin 1.6 L 12/26/16 04:25 WBC RBC Hgb Hct MCV MCH MCHC RDW Plt Count Seg Neutrophils % Lymphocytes % Monocytes % Eosinophils % Basophils % Absolute Neutrophils Absolute Lymphocytes Absolute Monocytes Absolute Eosinophils Absolute Basophils Carbonic Acid HCO3/H2CO3 Ratio ABG pH ABG pCO2 ABG pO2 ABG HCO3 ABG O2 Saturation ABG Base Excess FiO2 Sodium Potassium Chloride Carbon Dioxide Anion Gap BUN Creatinine Est GFR ( Amer) Est GFR (Non-Af Amer) Glucose Lactic Acid 1.0 Calcium Phosphorus Magnesium Total Bilirubin AST ALT Alkaline Phosphatase Total Protein Albumin 12/25/16 06:35 Tracheal Aspirate Gram Stain - Final 12/24/16 12/24/16 12/24/16 16:50 18:10 21:50 Creatine Kinase 29 L 72 CK-MB (CK-2) Troponin I 0.036 12/24/16 12/25/16 12/25/16 21:50 00:35 00:35 Creatine Kinase 66 CK-MB (CK-2) Troponin I 0.038 0.044 12/25/16 12/25/16 21:50 21:50 Creatine Kinase 26 L CK-MB (CK-2) 0.59 Troponin I 0.033 Impressions: Chest/Abdomen CTA 12/24/16 00:00 IMPRESSION: 1. NORMAL CTA OF THE CHEST. NO PULMONARY EMBOLI. 2. MODERATE BILATERAL PLEURAL EFFUSIONS. DENSE CONSOLIDATION IN THE LOWER LOBES DUE TO ATELECTASIS. CANNOT EXCLUDE PNEUMONIA. 3. FINDINGS IN THE UPPER ABDOMEN DESCRIBED. POSTOPERATIVE TINY BUBBLES OF FREE AIR. DISTENDED STOMACH AND VISUALIZED SMALL BOWEL. KUB X-Ray 12/24/16 00:00 IMPRESSION: DIFFUSE SMALL BOWEL DILATION. MAY BE DUE TO POSTOPERATIVE ILEUS ALTHOUGH OBSTRUCTION CANNOT BE EXCLUDED. Abdomen/Pelvis CT 12/25/16 00:00 IMPRESSION: 1. SURGICAL CHANGES DESCRIBED. MODERATE DILATION OF THE STOMACH AND MAJORITY OF THE SMALL BOWEL. THERE DOES APPEAR TO BE A TRANSITION IN THE DISTAL SMALL BOWEL BEFORE THE ILEOSTOMY. THIS COULD BE DUE TO ASYMMETRIC POSTOPERATIVE ILEUS. PARTIAL SMALL BOWEL OBSTRUCTION COULD BE PRESENT ALTHOUGH UNUSUAL SO SOON AFTER SURGERY. MODERATE FREE FLUID WELL POSTOPERATIVE FREE AIR. 2. BILATERAL LOWER LOBE CONSOLIDATIONS WITH SMALL -MODERATE PLEURAL EFFUSIONS. 3. OTHER STABLE INCIDENTAL FINDINGS ABOVE. Chest X-Ray 12/26/16 06:00 IMPRESSION: Bilateral perihilar airspace opacities. Small left pleural effusion. Central vascular congestion. Pneumoperitoneum. Assessment & Plan - Diagnosis (1) Acute hypoxemic respiratory failure Is this a current diagnosis for this admission?: Yes (2) Aspiration pneumonia Qualifiers: Aspiration pneumonia type: unspecified Laterality: bilateral Lung location: lower lobe of lung Qualified Code(s): J69.0 - Pneumonitis due to inhalation of food and vomit Is this a current diagnosis for this admission?: Yes (3) Adynamic ileus Is this a current diagnosis for this admission?: Yes (4) Toxic megacolon Is this a current diagnosis for this admission?: Yes (5) Sigmoid volvulus Is this a current diagnosis for this admission?: Yes (6) Acute renal failure Qualifiers: Acute renal failure type: unspecified Qualified Code(s): N17.9 - Acute kidney failure, unspecified Is this a current diagnosis for this admission?: Yes (7) Chronic kidney disease, stage II (mild) Is this a current diagnosis for this admission?: Yes (8) Nodule of spleen Is this a current diagnosis for this admission?: Yes (9) Essential hypertension Is this a current diagnosis for this admission?: Yes (10) Hyperlipidemia, acquired Is this a current diagnosis for this admission?: Yes (11) BPH (benign prostatic hyperplasia) Qualifiers: Lower urinary tract symptom presence: unspecified whether lower urinary tract symptoms present Qualified Code(s): N40.0 - Benign prostatic hyperplasia without lower urinary tract symptoms Is this a current diagnosis for this admission?: Yes (12) Atherosclerotic vascular disease Is this a current diagnosis for this admission?: Yes (13) Hypotension Qualifiers: Hypotension type: unspecified hypotension type Qualified Code(s): I95.9 - Hypotension, unspecified Is this a current diagnosis for this admission?: Yes (14) Hypoxia Is this a current diagnosis for this admission?: Yes - Time Time Spent with patient: 25-34 minutes - Plan Summary Plan Summary: Continue IVF. Continue antibiotics. Monitor electrolytes. Continue to hold anti- hypertensive medications. Follow cultures. TPN to be started by surgical service. Continue supportive care. Creatinine improving.
[2016-12-26] MEDS: PANTOPRAZOLE SODIUM 40 MG VIAL IV SCH (09:42)
[2016-12-26] MEDS: ENOXAPARIN SODIUM INJ 40 MG/0.4 ML DISP.SYRIN SUBCUT SCH (09:45)
[2016-12-26] MEDS: VANCOMYCIN HCL 1,250 MG in DEXTROSE 5%-WATER 250 ML IV SCH (09:46)
--- NOTE | 2016-12-26 09:55 | PDOC CONSULTATION ---
Consultation Consult Date: 12/26/16 Consult reason:: AK I in the face of septic shock. History of Present Illness Admission Date/PCP: 12/19/16 06:53 ANJALI AVENDANO MD History of Present Illness: all information from chart GUSTAVO HEARN is a 81 year old male, has been asked to be seen by Dr. Gregory for evaluation of AK I in the face of septic shock. He was seen in the ICU because of septic shock on pressors and respiratory failure who was intubated and sedated.He was admitted with acute bowel obstruction and evaluations revealed that he had volvulus with toxic megacolon. He underwent a total colectomy, splenic biopsy. Initially postoperatively he was doing well. Couple of days ago he apparently aspirated went into respiratory failure along with evidences of septic shock. He was transferred to the ICU and currently is as mentioned earlier on pressors and has been intubated. Discussions were done with the treating nurse as well as Dr. Gregory. Labs and medications were reviewed.His preadmission creatinine was 1.1. Past Medical History Cardiac Medical History: Reports: Hyperlipidemia - ON MEDS, Hypertension-primary , Other - Atherosclerotic vascular disease Denies: Atrial Fibrillation, Coronary Artery Disease, Heart Murmur, Myocardial Infarction, Peripheral Vascular Disease Pulmonary Medical History: Neurological Medical History: Renal/ Medical History: Reports: Benign Prostatic Hyperplasia, Other - BPH Denies: End Stage Renal Disease Malignancy Medical History: GI Medical History: Reports: Gastroesophageal Reflux Disease Denies: Crohn's Disease, Hepatitis, Hiatal Hernia Musculoskeltal Medical History: Past Surgical History Past Surgical History: Reports: Cardiac Catheterization, Caroltid Endarterectomy - Right, Cholecystectomy, Other - Exploratory laparotomy with total colectomy and splenic biopsy, Denies: Appendectomy, Colostomy, Coronary Artery Bypass Graft, Gastric Bypass Surgery, Herniorrhaphy, Pacemaker, Tonsillectomy Social History Lives with: Family Smoking Status: Former Smoker Frequency of Alcohol Use: Occasional Hx Recreational Drug Use: No Drugs: None Hx Prescription Drug Abuse: No - Advance Directive Resuscitation Status: Full Code Family History Parental Family History Reviewed: No Children Family History Reviewed: No Sibling(s) Family History Reviewed.: No Medication/Allergy Home Medications: Aspirin [Ecotrin 81 mg EC Tablet] 81 mg PO ASDIR 07/19/12 Lisinopril [Prinivil 20 mg Tablet] 20 mg PO DAILY 07/19/12 Multivitamin [Multiple Vitamins] 1 each PO DAILY 07/19/12 Pravastatin Sodium [Pravachol] 40 mg PO QHS 07/19/12 Amlodipine Besylate [Norvasc 5 mg Tablet] 5 mg PO DAILY 01/14/13 Tolterodine Tartrate [Detrol LA] 4 mg PO DAILY 01/14/13 Finasteride [Proscar 5 mg Tablet] 5 mg PO DAILY 12/02/15 Docusate Sodium [Colace 100 mg Capsule] 100 mg PO BID #60 capsule 12/12/16 Polyethylene Glycol 3350 [Miralax] 1 cap PO DAILY #1 bot 12/12/16 Pantoprazole Sodium 20 mg PO DAILY 12/16/16 Allergies/Adverse Reactions: No Known Allergies Allergy (Verified 12/16/16 11:33) Review of Systems Review of Systems: Review of systems could not be ascertained as patient seen in the ICU who was intubated and sedated and critically ill. Chart and previous notes were reviewed and discussions were done with the treating nurse. Physical Exam Vital Signs: Temp Pulse Resp BP Pulse Ox 98.6 F 73 19 108/51 L 97 12/26/16 08:00 12/26/16 08:00 12/26/16 08:00 12/26/16 08:00 12/26/16 08:00 Pulse Oximeter Continuous Start: 12/24/16 22: 07 Freq: Status: Complete Document 12/24/16 20:00 [facility] (Rec: 12/24/16 22:09 [facility] [email or web address]) Pulse Oximetry Assessment Oxygen Saturation (92-100) 100 Oxygen Flow Rate (L/min) 12 Oxygen Delivery Method Non-Rebreather Fraction of Inspired Oxygen (FIO2) 100 Equipment Usage Initial Set Up Continuous Pulse Oximeter 24 Hour Charge Charge Now Continuous SpO2 Machine # [id number] Intake & Output 12/25/16 12/26/16 12/27/16 06:59 06:59 06:59 Intake Total 8135 7953 Output Total 5437 0491 185 Balance 282 1874 -415 Weight 87.4 kg 91.6 kg Exam: Patient is intubated and sedated. Eye exam: PRESENT: conjunctiva pink, EOMI, PERRLA Ear exam: PRESENT: normal external ear exam Neck exam: ABSENT: lymphadenopathy, meningismus, tenderness, thyromegaly, tracheal deviation Respiratory exam: PRESENT: clear to auscultation annabel, decreased breath sounds. ABSENT: crackles, rhonchi Cardiovascular exam: PRESENT: +S1, +S2 GI/Abdominal exam: PRESENT: hypoactive bowel sounds, soft. ABSENT: ascites, firm, guarding Extremities exam: PRESENT: pedal edema - Trace plus. Skin exam: ABSENT: erythema, mottled, rash Results Laboratory Results: 12/26/16 04:25 12/26/16 04:25 12/25/16 12/25/16 12/25/16 13:00 21:50 21:50 WBC 23.5 H RBC 3.31 L Hgb 10.3 L Hct 31.3 L MCV 95 MCH 31.0 MCHC 32.8 RDW 13.8 Plt Count 170 Seg Neutrophils % Not Reportable Lymphocytes % Not Reportable Monocytes % Not Reportable Eosinophils % Not Reportable Basophils % Not Reportable Absolute Neutrophils Not Reportable Absolute Lymphocytes Not Reportable Absolute Monocytes Not Reportable Absolute Eosinophils Not Reportable Absolute Basophils Not Reportable Carbonic Acid HCO3/H2CO3 Ratio ABG pH ABG pCO2 ABG pO2 ABG HCO3 ABG O2 Saturation ABG Base Excess FiO2 Sodium 137.8 Potassium 3.5 L Chloride 105 Carbon Dioxide 27 Anion Gap 6 BUN 50 H Creatinine 2.20 H Est GFR ( Amer) 35 L Est GFR (Non-Af Amer) 29 L Glucose 131 H Lactic Acid 1.7 Calcium 7.1 L Phosphorus Magnesium 1.8 Total Bilirubin AST ALT Alkaline Phosphatase Total Protein Albumin Triglycerides 12/26/16 12/26/16 12/26/16 04:25 04:25 04:25 WBC 25.4 H RBC 3.26 L Hgb 10.0 L Hct 30.6 L MCV 94 MCH 30.7 MCHC 32.8 RDW 14.2 H Plt Count 171 Seg Neutrophils % Not Reportable Lymphocytes % Not Reportable Monocytes % Not Reportable Eosinophils % Not Reportable Basophils % Not Reportable Absolute Neutrophils Not Reportable Absolute Lymphocytes Not Reportable Absolute Monocytes Not Reportable Absolute Eosinophils Not Reportable Absolute Basophils Not Reportable Carbonic Acid 1.22 HCO3/H2CO3 Ratio 22:1 ABG pH 7.45 ABG pCO2 40.4 ABG pO2 92.6 ABG HCO3 27.4 H ABG O2 Saturation 97.4 ABG Base Excess 3.2 FiO2 45% Sodium 138.8 Potassium 3.8 Chloride 107 Carbon Dioxide 26 Anion Gap 6 BUN 50 H Creatinine 2.05 H Est GFR ( Amer) 38 L Est GFR (Non-Af Amer) 31 L Glucose 125 H Lactic Acid Calcium 7.1 L Phosphorus 3.4 Magnesium 2.1 Total Bilirubin 0.5 AST 20 ALT 33 Alkaline Phosphatase 58 Total Protein 3.5 L Albumin 1.6 L Triglycerides 12/26/16 12/26/16 04:25 04:25 WBC RBC Hgb Hct MCV MCH MCHC RDW Plt Count Seg Neutrophils % Lymphocytes % Monocytes % Eosinophils % Basophils % Absolute Neutrophils Absolute Lymphocytes Absolute Monocytes Absolute Eosinophils Absolute Basophils Carbonic Acid HCO3/H2CO3 Ratio ABG pH ABG pCO2 ABG pO2 ABG HCO3 ABG O2 Saturation ABG Base Excess FiO2 Sodium Potassium Chloride Carbon Dioxide Anion Gap BUN Creatinine Est GFR ( Amer) Est GFR (Non-Af Amer) Glucose Lactic Acid 1.0 Calcium Phosphorus Magnesium Total Bilirubin AST ALT Alkaline Phosphatase Total Protein Albumin Triglycerides 105 12/25/16 06:35 Tracheal Aspirate Gram Stain - Final 12/24/16 12/24/16 12/24/16 16:50 18:10 21:50 Creatine Kinase 29 L 72 CK-MB (CK-2) Troponin I 0.036 12/24/16 12/25/16 12/25/16 21:50 00:35 00:35 Creatine Kinase 66 CK-MB (CK-2) Troponin I 0.038 0.044 12/25/16 12/25/16 21:50 21:50 Creatine Kinase 26 L CK-MB (CK-2) 0.59 Troponin I 0.033 Impressions: Chest/Abdomen CTA 12/24/16 00:00 IMPRESSION: 1. NORMAL CTA OF THE CHEST. NO PULMONARY EMBOLI. 2. MODERATE BILATERAL PLEURAL EFFUSIONS. DENSE CONSOLIDATION IN THE LOWER LOBES DUE TO ATELECTASIS. CANNOT EXCLUDE PNEUMONIA. 3. FINDINGS IN THE UPPER ABDOMEN DESCRIBED. POSTOPERATIVE TINY BUBBLES OF FREE AIR. DISTENDED STOMACH AND VISUALIZED SMALL BOWEL. KUB X-Ray 12/24/16 00:00 IMPRESSION: DIFFUSE SMALL BOWEL DILATION. MAY BE DUE TO POSTOPERATIVE ILEUS ALTHOUGH OBSTRUCTION CANNOT BE EXCLUDED. Abdomen/Pelvis CT 12/25/16 00:00 IMPRESSION: 1. SURGICAL CHANGES DESCRIBED. MODERATE DILATION OF THE STOMACH AND MAJORITY OF THE SMALL BOWEL. THERE DOES APPEAR TO BE A TRANSITION IN THE DISTAL SMALL BOWEL BEFORE THE ILEOSTOMY. THIS COULD BE DUE TO ASYMMETRIC POSTOPERATIVE ILEUS. PARTIAL SMALL BOWEL OBSTRUCTION COULD BE PRESENT ALTHOUGH UNUSUAL SO SOON AFTER SURGERY. MODERATE FREE FLUID WELL POSTOPERATIVE FREE AIR. 2. BILATERAL LOWER LOBE CONSOLIDATIONS WITH SMALL -MODERATE PLEURAL EFFUSIONS. 3. OTHER STABLE INCIDENTAL FINDINGS ABOVE. Chest X-Ray 12/26/16 06:00 IMPRESSION: Bilateral perihilar airspace opacities. Small left pleural effusion. Central vascular congestion. Pneumoperitoneum. Assessment & Plan - Diagnosis (1) Acute hypoxemic respiratory failure Is this a current diagnosis for this admission?: YesPlan: Patient currently intubated and sedated. (2) Acute renal failure Qualifiers: Acute renal failure type: unspecified Qualified Code(s): N17.9 - Acute kidney failure, unspecified Is this a current diagnosis for this admission?: YesPlan: Secondary to ATN from septic shock. Currently patient relatively stable on his on his pressors which is being tapered down. Volume macias he is adequately repleted with no evidences of central fluid overload. He is starting to make reasonable amounts of good urine output which is encouraging. Please dose medications to a GFR of approximately 30 cc per. No indications for renal replacements (3) Adynamic ileus Is this a current diagnosis for this admission?: YesPlan: As seen by his his current GI status. This could be from his postop as well as his septic shock. As per surgery and primary care. (4) Aspiration pneumonia Qualifiers: Aspiration pneumonia type: unspecified Laterality: bilateral Lung location: lower lobe of lung Qualified Code(s): J69.0 - Pneumonitis due to inhalation of food and vomit Is this a current diagnosis for this admission?: YesPlan: Possibly happen in the setting of progressive sepsis and septic shock. Currently on antibiotics after being intubated. (5) Hypotension Qualifiers: Hypotension type: unspecified hypotension type Qualified Code(s): I95.9 - Hypotension, unspecified Is this a current diagnosis for this admission?: Yes (6) Septic shock Is this a current diagnosis for this admission?: YesPlan: Patient on double pressors which is being tapered down. Vital signs are being maintained adequately. Perfusion pressure seems adequate.Lactic acid is negative (7) Sigmoid volvulus Is this a current diagnosis for this admission?: YesPlan: With toxic megacolon which led to his bowel obstruction and need for immediate surgical intervention. (8) Toxic megacolon Is this a current diagnosis for this admission?: Yes
--- NOTE | 2016-12-26 11:24 | PDOC PROGRESS REPORT ---
Subjective Progress Note for:: 12/26/16 Subjective:: Postoperative day 7 status post subtotal colectomy ileostomy. Postoperative course complicated by aspiration this 36 hours ago. Patient remains in intensive care unit in critical condition, on 2 vasopressors. Physical Exam Vital Signs: Temp Pulse Resp BP Pulse Ox 98.7 F 86 15 105/52 L 97 12/26/16 10:00 12/26/16 10:00 12/26/16 10:12 12/26/16 10:12 12/26/16 10:12 Pulse Oximeter Continuous Start: 12/24/16 22: 07 Freq: Status: Complete Document 12/24/16 20:00 [facility] (Rec: 12/24/16 22:09 [facility] [email or web address]) Pulse Oximetry Assessment Oxygen Saturation (92-100) 100 Oxygen Flow Rate (L/min) 12 Oxygen Delivery Method Non-Rebreather Fraction of Inspired Oxygen (FIO2) 100 Equipment Usage Initial Set Up Continuous Pulse Oximeter 24 Hour Charge Charge Now Continuous SpO2 Machine # [id number] Intake & Output 12/25/16 12/26/16 12/27/16 06:59 06:59 06:59 Intake Total 3197 7942 Output Total 2915 4325 435 Balance 282 3617 -435 Weight 87.4 kg 91.6 kg General appearance: PRESENT: other - Sedated and intubated. Respiratory exam: PRESENT: other - Bilaterally; minimal mucus from the endotracheal tube GI/Abdominal exam: PRESENT: other - The ostomy looks excellent. Midline wound approximated clemente intact. Results Laboratory Results: 12/26/16 04:25 12/26/16 04:25 12/25/16 12/25/16 12/25/16 13:00 21:50 21:50 WBC 23.5 H RBC 3.31 L Hgb 10.3 L Hct 31.3 L MCV 95 MCH 31.0 MCHC 32.8 RDW 13.8 Plt Count 170 Seg Neutrophils % Not Reportable Lymphocytes % Not Reportable Monocytes % Not Reportable Eosinophils % Not Reportable Basophils % Not Reportable Absolute Neutrophils Not Reportable Absolute Lymphocytes Not Reportable Absolute Monocytes Not Reportable Absolute Eosinophils Not Reportable Absolute Basophils Not Reportable Carbonic Acid HCO3/H2CO3 Ratio ABG pH ABG pCO2 ABG pO2 ABG HCO3 ABG O2 Saturation ABG Base Excess FiO2 Sodium 137.8 Potassium 3.5 L Chloride 105 Carbon Dioxide 27 Anion Gap 6 BUN 50 H Creatinine 2.20 H Est GFR ( Amer) 35 L Est GFR (Non-Af Amer) 29 L Glucose 131 H Lactic Acid 1.7 Calcium 7.1 L Phosphorus Magnesium 1.8 Total Bilirubin AST ALT Alkaline Phosphatase Total Protein Albumin Triglycerides 12/26/16 12/26/16 12/26/16 04:25 04:25 04:25 WBC 25.4 H RBC 3.26 L Hgb 10.0 L Hct 30.6 L MCV 94 MCH 30.7 MCHC 32.8 RDW 14.2 H Plt Count 171 Seg Neutrophils % Not Reportable Lymphocytes % Not Reportable Monocytes % Not Reportable Eosinophils % Not Reportable Basophils % Not Reportable Absolute Neutrophils Not Reportable Absolute Lymphocytes Not Reportable Absolute Monocytes Not Reportable Absolute Eosinophils Not Reportable Absolute Basophils Not Reportable Carbonic Acid 1.22 HCO3/H2CO3 Ratio 22:1 ABG pH 7.45 ABG pCO2 40.4 ABG pO2 92.6 ABG HCO3 27.4 H ABG O2 Saturation 97.4 ABG Base Excess 3.2 FiO2 45% Sodium 138.8 Potassium 3.8 Chloride 107 Carbon Dioxide 26 Anion Gap 6 BUN 50 H Creatinine 2.05 H Est GFR ( Amer) 38 L Est GFR (Non-Af Amer) 31 L Glucose 125 H Lactic Acid Calcium 7.1 L Phosphorus 3.4 Magnesium 2.1 Total Bilirubin 0.5 AST 20 ALT 33 Alkaline Phosphatase 58 Total Protein 3.5 L Albumin 1.6 L Triglycerides 12/26/16 12/26/16 04:25 04:25 WBC RBC Hgb Hct MCV MCH MCHC RDW Plt Count Seg Neutrophils % Lymphocytes % Monocytes % Eosinophils % Basophils % Absolute Neutrophils Absolute Lymphocytes Absolute Monocytes Absolute Eosinophils Absolute Basophils Carbonic Acid HCO3/H2CO3 Ratio ABG pH ABG pCO2 ABG pO2 ABG HCO3 ABG O2 Saturation ABG Base Excess FiO2 Sodium Potassium Chloride Carbon Dioxide Anion Gap BUN Creatinine Est GFR ( Amer) Est GFR (Non-Af Amer) Glucose Lactic Acid 1.0 Calcium Phosphorus Magnesium Total Bilirubin AST ALT Alkaline Phosphatase Total Protein Albumin Triglycerides 105 12/25/16 06:35 Tracheal Aspirate Gram Stain - Final 12/24/16 12/24/16 12/24/16 16:50 18:10 21:50 Creatine Kinase 29 L 72 CK-MB (CK-2) Troponin I 0.036 12/24/16 12/25/16 12/25/16 21:50 00:35 00:35 Creatine Kinase 66 CK-MB (CK-2) Troponin I 0.038 0.044 12/25/16 12/25/16 21:50 21:50 Creatine Kinase 26 L CK-MB (CK-2) 0.59 Troponin I 0.033 Impressions: Chest/Abdomen CTA 12/24/16 00:00 IMPRESSION: 1. NORMAL CTA OF THE CHEST. NO PULMONARY EMBOLI. 2. MODERATE BILATERAL PLEURAL EFFUSIONS. DENSE CONSOLIDATION IN THE LOWER LOBES DUE TO ATELECTASIS. CANNOT EXCLUDE PNEUMONIA. 3. FINDINGS IN THE UPPER ABDOMEN DESCRIBED. POSTOPERATIVE TINY BUBBLES OF FREE AIR. DISTENDED STOMACH AND VISUALIZED SMALL BOWEL. KUB X-Ray 12/24/16 00:00 IMPRESSION: DIFFUSE SMALL BOWEL DILATION. MAY BE DUE TO POSTOPERATIVE ILEUS ALTHOUGH OBSTRUCTION CANNOT BE EXCLUDED. Abdomen/Pelvis CT 12/25/16 00:00 IMPRESSION: 1. SURGICAL CHANGES DESCRIBED. MODERATE DILATION OF THE STOMACH AND MAJORITY OF THE SMALL BOWEL. THERE DOES APPEAR TO BE A TRANSITION IN THE DISTAL SMALL BOWEL BEFORE THE ILEOSTOMY. THIS COULD BE DUE TO ASYMMETRIC POSTOPERATIVE ILEUS. PARTIAL SMALL BOWEL OBSTRUCTION COULD BE PRESENT ALTHOUGH UNUSUAL SO SOON AFTER SURGERY. MODERATE FREE FLUID WELL POSTOPERATIVE FREE AIR. 2. BILATERAL LOWER LOBE CONSOLIDATIONS WITH SMALL -MODERATE PLEURAL EFFUSIONS. 3. OTHER STABLE INCIDENTAL FINDINGS ABOVE. Chest X-Ray 12/26/16 06:00 IMPRESSION: Bilateral perihilar airspace opacities. Small left pleural effusion. Central vascular congestion. Pneumoperitoneum. Assessment & Plan - Diagnosis (1) Acute respiratory failure with hypoxia and hypercapnia Plan: In summary, patient has a postoperative complication of respiratory failure secondary to aspiration pneumonia. Patient likely had a functional gastric outlet obstruction, vomited and aspirated. Chest x-ray today shows bilateral basilar airspace disease. Current FiO2 at 40%. He is been stabilized in the intensive care unit but is still in guarded condition. His clinical course will be complicated by malnutrition. We have initiated total parenteral nutrition today. Patient has an element of acute superimposed on chronic renal insufficiency. I have consulted Dr. Colt Corral, general service officer, to assist in patient's management. We will inform patient's of his current status.
[2016-12-26 15:33] LABS: PATH REVIEW PATHOLOGIST REVIEWED
[2016-12-26] MEDS: AMINO ACIDS 5%/D25W 1,000 ML IV PRN (17:23)
[2016-12-26] MEDS: INSULIN REG, HUMAN 100 UNIT/ML 3 ML VIAL (PYX) SUBCUT PRN (23:34)
[2016-12-27] MEDS: PROPOFOL 100 ML IV PRN ×3 (03:23→21:29)
[2016-12-27 04:48] LABS: HEMOGLOBIN 9.4 g/dL (13.5-17.0); HGB HCT DIFFERENCE -0.8; MEAN CORPUSCULAR HEMOGLOBIN 30.9 pg (27.0-33.4); MEAN CORPUSCULAR HGB CONC 32.5 g/dL (32.0-36.0); MEAN CORPUSCULAR VOLUME 95 fl (80-97); RED BLOOD COUNT 3.05 10^6/uL (4.35-5.55); RED CELL DISTRIBUTION WIDTH 14.2 % (11.5-14.0); WHITE BLOOD COUNT 14.2 10^3/uL (4.0-10.5)
[2016-12-27 04:50] LABS: ARTERIAL BLOOD BASE EXCESS -2.3 mmol/L; ARTERIAL BLOOD O2 SATURATION 97.3 % (94-98)
[2016-12-27 05:08] LABS: ALANINE AMINOTRANSFERASE 38 U/L (21-72); ALBUMIN 1.6 g/dL (3.5-5.0); ALKALINE PHOSPHATASE 82 U/L (38-126); ANION GAP 5 (5-19); ASPARTATE AMINO TRANSFERASE 21 U/L (17-59); BILIRUBIN,DIRECT 0.3 mg/dL (0.0-0.4); BILIRUBIN,TOTAL 0.4 mg/dL (0.2-1.3); BLOOD UREA NITROGEN 47 mg/dL (7-20); CALCIUM 7.1 mg/dL (8.4-10.2); CARBON DIOXIDE 26 mmol/L (22-30); CHLORIDE 111 mmol/L (98-107); CREATININE RESULT 1.85 mg/dL (0.52-1.25); GLUCOSE 141 mg/dL (75-110); PHOSPHORUS 3.4 mg/dL (2.5-4.5); POTASSIUM 3.7 mmol/L (3.6-5.0); SODIUM 142.1 mmol/L (137-145); TOTAL PROTEIN 3.5 g/dL (6.3-8.2)
[2016-12-27] MEDS: PIPERACILLIN SODIUM/TAZOBACTAM 4.5 GM in NORMAL SALINE 100 ML IV SCH (05:13)
[2016-12-27] MEDS: NORMAL SALINE 1000 ML 1,000 ML IV PRN (05:13)
[2016-12-27 05:15] LABS: PREALBUMIN 5.5 mg/dL (17.6-36.0)
--- NOTE | 2016-12-27 07:24 | RADIOLOGY REPORT (SQ) ---
EXAM DESCRIPTION: CHEST SINGLE VIEW COMPLETED DATE/TIME: 12/27/2016 7:02 am REASON FOR STUDY: resp failure COMPARISON: 12/26/2016. EXAM PARAMETERS: NUMBER OF VIEWS: One view. TECHNIQUE: Single frontal radiographic view of the chest acquired. RADIATION DOSE: NA LIMITATIONS: None. FINDINGS: LUNGS AND PLEURA: Generally improved aeration. Mild basilar atelectasis. No large pleura l effusion. No pneumothorax. MEDIASTINUM AND HILAR STRUCTURES: No masses. Contour normal. HEART AND VASCULAR STRUCTURES: Heart normal in size. Normal vasculature. BONES: No acute findings. HARDWARE: Stable endotracheal tube, nasogastric tube, and central line. OTHER: Postoperative pneumoperitoneum. IMPRESSION: GENERALLY IMPROVED AERATION. MILD BASILAR ATELECTASIS. OTHERWISE NO CHANGE. TECHNICAL DOCUMENTATION: JOB ID: [id number]
--- NOTE | 2016-12-27 09:03 | PDOC PROGRESS REPORT ---
Subjective Subjective:: patient intubated, but awake and alert, responsive Physical Exam Vital Signs: Temp Pulse Resp BP Pulse Ox 100.5 F H 108 H 0 L 110/56 L 99 12/27/16 08:00 12/27/16 08:00 12/27/16 06:28 12/27/16 06:28 12/27/16 06:28 Pulse Oximeter Continuous Start: 12/24/16 22: 07 Freq: Status: Complete Document 12/24/16 20:00 [facility] (Rec: 12/24/16 22:09 [facility] [email or web address]) Pulse Oximetry Assessment Oxygen Saturation (92-100) 100 Oxygen Flow Rate (L/min) 12 Oxygen Delivery Method Non-Rebreather Fraction of Inspired Oxygen (FIO2) 100 Equipment Usage Initial Set Up Continuous Pulse Oximeter 24 Hour Charge Charge Now Continuous SpO2 Machine # [id number]-6 Intake & Output 12/26/16 12/27/16 12/28/16 06:59 06:59 06:59 Intake Total 7979 3587 Output Total 4323 3035 Balance 3617 552 Weight 91.6 kg 88.7 kg General appearance: PRESENT: no acute distress, cooperative Respiratory exam: PRESENT: clear to auscultation annabel Cardiovascular exam: PRESENT: RRR GI/Abdominal exam: PRESENT: normal bowel sounds, soft, other - ostomy pink, with green content; wound clean, dry, and intact Results Laboratory Results: 12/27/16 04:34 12/27/16 04:34 12/25/16 12/26/16 12/26/16 06:35 04:25 21:45 WBC 27.8 H RBC 3.94 L Hgb 12.1 L Hct 37.5 L MCV 95 MCH 30.6 MCHC 32.1 RDW 13.7 Plt Count 231 Carbonic Acid HCO3/H2CO3 Ratio ABG pH ABG pCO2 ABG pO2 ABG HCO3 ABG O2 Saturation ABG Base Excess FiO2 Sodium Potassium Chloride Carbon Dioxide Anion Gap BUN Creatinine Est GFR ( Amer) Est GFR (Non-Af Amer) Glucose Calcium Phosphorus Magnesium Total Bilirubin AST ALT Alkaline Phosphatase Total Protein Albumin Prealbumin Triglycerides 105 107 12/27/16 12/27/16 12/27/16 04:34 04:34 04:34 WBC 14.2 H RBC 3.05 L Hgb 9.4 L Hct 29.0 L MCV 95 MCH 30.9 MCHC 32.5 RDW 14.2 H Plt Count 154 Carbonic Acid 0.98 L HCO3/H2CO3 Ratio 21:1 ABG pH 7.44 ABG pCO2 32.4 L ABG pO2 91.8 ABG HCO3 21.4 ABG O2 Saturation 97.3 ABG Base Excess -2.3 FiO2 40% Sodium 142.1 Potassium 3.7 Chloride 111 H Carbon Dioxide 26 Anion Gap 5 BUN 47 H Creatinine 1.85 H Est GFR ( Amer) 43 L Est GFR (Non-Af Amer) 35 L Glucose 141 H Calcium 7.1 L Phosphorus 3.4 Magnesium 2.0 Total Bilirubin 0.4 AST 21 ALT 38 Alkaline Phosphatase 82 Total Protein 3.5 L Albumin 1.6 L Prealbumin 5.5 L Triglycerides 12/26/16 10:00 Tracheal Aspirate Gram Stain - Final 12/25/16 06:35 Tracheal Aspirate Gram Stain - Final 12/24/16 12/24/16 12/24/16 16:50 18:10 21:50 Creatine Kinase 29 L 72 CK-MB (CK-2) Troponin I 0.036 12/24/16 12/25/16 12/25/16 21:50 00:35 00:35 Creatine Kinase 66 CK-MB (CK-2) Troponin I 0.038 0.044 12/25/16 12/25/16 21:50 21:50 Creatine Kinase 26 L CK-MB (CK-2) 0.59 Troponin I 0.033 Impressions: Chest/Abdomen CTA 12/24/16 00:00 IMPRESSION: 1. NORMAL CTA OF THE CHEST. NO PULMONARY EMBOLI. 2. MODERATE BILATERAL PLEURAL EFFUSIONS. DENSE CONSOLIDATION IN THE LOWER LOBES DUE TO ATELECTASIS. CANNOT EXCLUDE PNEUMONIA. 3. FINDINGS IN THE UPPER ABDOMEN DESCRIBED. POSTOPERATIVE TINY BUBBLES OF FREE AIR. DISTENDED STOMACH AND VISUALIZED SMALL BOWEL. KUB X-Ray 12/24/16 00:00 IMPRESSION: DIFFUSE SMALL BOWEL DILATION. MAY BE DUE TO POSTOPERATIVE ILEUS ALTHOUGH OBSTRUCTION CANNOT BE EXCLUDED. Abdomen/Pelvis CT 12/25/16 00:00 IMPRESSION: 1. SURGICAL CHANGES DESCRIBED. MODERATE DILATION OF THE STOMACH AND MAJORITY OF THE SMALL BOWEL. THERE DOES APPEAR TO BE A TRANSITION IN THE DISTAL SMALL BOWEL BEFORE THE ILEOSTOMY. THIS COULD BE DUE TO ASYMMETRIC POSTOPERATIVE ILEUS. PARTIAL SMALL BOWEL OBSTRUCTION COULD BE PRESENT ALTHOUGH UNUSUAL SO SOON AFTER SURGERY. MODERATE FREE FLUID WELL POSTOPERATIVE FREE AIR. 2. BILATERAL LOWER LOBE CONSOLIDATIONS WITH SMALL -MODERATE PLEURAL EFFUSIONS. 3. OTHER STABLE INCIDENTAL FINDINGS ABOVE. Chest X-Ray 12/27/17 06:00 IMPRESSION: GENERALLY IMPROVED AERATION. MILD BASILAR ATELECTASIS. OTHERWISE NO CHANGE. 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
[2016-12-27] MEDS: ENOXAPARIN SODIUM INJ 40 MG/0.4 ML DISP.SYRIN SUBCUT SCH (09:59)
[2016-12-27] MEDS: VANCOMYCIN HCL 1,250 MG in DEXTROSE 5%-WATER 250 ML IV SCH (10:01)
[2016-12-27] MEDS: ACETAMINOPHEN SOLN 325 MG/10.15 ML UDCUP NG PRN ×2 (10:02→17:12)
[2016-12-27] MEDS ORDERED: TOBRAMYCIN SULFATE INJ 80 MG/2 ML VIAL NEB PRN (11:00)
--- NOTE | 2016-12-27 11:17 | PDOC PROGRESS REPORT ---
Subjective Progress Note for:: 12/27/16 Subjective:: The patient is on the ventilator but is able to nod his head yes or no. Physical Exam Vital Signs: Temp Pulse Resp BP Pulse Ox 100.5 F H 80 16 112/49 L 100 12/27/16 08:00 12/27/16 10:00 12/27/16 11:00 12/27/16 10:29 12/27/16 11:00 Pulse Oximeter Continuous Start: 12/24/16 22: 07 Freq: Status: Complete Document 12/24/16 20:00 [facility] (Rec: 12/24/16 22:09 [facility] [email or web address]) Pulse Oximetry Assessment Oxygen Saturation (92-100) 100 Oxygen Flow Rate (L/min) 12 Oxygen Delivery Method Non-Rebreather Fraction of Inspired Oxygen (FIO2) 100 Equipment Usage Initial Set Up Continuous Pulse Oximeter 24 Hour Charge Charge Now Continuous SpO2 Machine # [id number] Intake & Output 12/26/16 12/27/16 12/28/16 06:59 06:59 06:59 Intake Total 7942 3587 Output Total 4325 3035 425 Balance 3617 552 -425 Weight 91.6 kg 88.7 kg General appearance: PRESENT: no acute distress Eye exam: PRESENT: conjunctiva pink. ABSENT: scleral icterus Ear exam: PRESENT: normal external ear exam Mouth exam: PRESENT: moist, tongue midline Neck exam: ABSENT: JVD Respiratory exam: PRESENT: clear to auscultation annabel. ABSENT: rales, wheezes Cardiovascular exam: PRESENT: RRR. ABSENT: diastolic murmur, rubs, systolic murmur GI/Abdominal exam: PRESENT: normal bowel sounds, soft. ABSENT: distended, guarding, mass, organolmegaly, rebound, tenderness Extremities exam: ABSENT: calf tenderness, clubbing, pedal edema Neurological exam: PRESENT: alert, awake Psychiatric exam: PRESENT: appropriate affect Skin exam: PRESENT: dry, intact, warm. ABSENT: cyanosis, rash Results Laboratory Results: 12/27/16 04:34 12/27/16 04:34 12/25/16 12/26/16 12/27/16 06:35 21:45 04:34 WBC 27.8 H RBC 3.94 L Hgb 12.1 L Hct 37.5 L MCV 95 MCH 30.6 MCHC 32.1 RDW 13.7 Plt Count 231 Carbonic Acid 0.98 L HCO3/H2CO3 Ratio 21:1 ABG pH 7.44 ABG pCO2 32.4 L ABG pO2 91.8 ABG HCO3 21.4 ABG O2 Saturation 97.3 ABG Base Excess -2.3 FiO2 40% Sodium Potassium Chloride Carbon Dioxide Anion Gap BUN Creatinine Est GFR ( Amer) Est GFR (Non-Af Amer) Glucose Calcium Phosphorus Magnesium Total Bilirubin AST ALT Alkaline Phosphatase Total Protein Albumin Prealbumin Triglycerides 107 12/27/16 12/27/16 04:34 04:34 WBC 14.2 H RBC 3.05 L Hgb 9.4 L Hct 29.0 L MCV 95 MCH 30.9 MCHC 32.5 RDW 14.2 H Plt Count 154 Carbonic Acid HCO3/H2CO3 Ratio ABG pH ABG pCO2 ABG pO2 ABG HCO3 ABG O2 Saturation ABG Base Excess FiO2 Sodium 142.1 Potassium 3.7 Chloride 111 H Carbon Dioxide 26 Anion Gap 5 BUN 47 H Creatinine 1.85 H Est GFR ( Amer) 43 L Est GFR (Non-Af Amer) 35 L Glucose 141 H Calcium 7.1 L Phosphorus 3.4 Magnesium 2.0 Total Bilirubin 0.4 AST 21 ALT 38 Alkaline Phosphatase 82 Total Protein 3.5 L Albumin 1.6 L Prealbumin 5.5 L Triglycerides 12/25/16 08:10 Catheterized Urine Urine Culture - Final NO GROWTH 2 DAYS 12/25/16 06:35 Tracheal Aspirate Gram Stain - Final 12/26/16 10:00 Tracheal Aspirate Gram Stain - Final 12/24/16 12/24/16 12/24/16 16:50 18:10 21:50 Creatine Kinase 29 L 72 CK-MB (CK-2) Troponin I 0.036 12/24/16 12/25/16 12/25/16 21:50 00:35 00:35 Creatine Kinase 66 CK-MB (CK-2) Troponin I 0.038 0.044 12/25/16 12/25/16 21:50 21:50 Creatine Kinase 26 L CK-MB (CK-2) 0.59 Troponin I 0.033 Impressions: Chest/Abdomen CTA 12/24/16 00:00 IMPRESSION: 1. NORMAL CTA OF THE CHEST. NO PULMONARY EMBOLI. 2. MODERATE BILATERAL PLEURAL EFFUSIONS. DENSE CONSOLIDATION IN THE LOWER LOBES DUE TO ATELECTASIS. CANNOT EXCLUDE PNEUMONIA. 3. FINDINGS IN THE UPPER ABDOMEN DESCRIBED. POSTOPERATIVE TINY BUBBLES OF FREE AIR. DISTENDED STOMACH AND VISUALIZED SMALL BOWEL. KUB X-Ray 12/24/16 00:00 IMPRESSION: DIFFUSE SMALL BOWEL DILATION. MAY BE DUE TO POSTOPERATIVE ILEUS ALTHOUGH OBSTRUCTION CANNOT BE EXCLUDED. Abdomen/Pelvis CT 12/25/16 00:00 IMPRESSION: 1. SURGICAL CHANGES DESCRIBED. MODERATE DILATION OF THE STOMACH AND MAJORITY OF THE SMALL BOWEL. THERE DOES APPEAR TO BE A TRANSITION IN THE DISTAL SMALL BOWEL BEFORE THE ILEOSTOMY. THIS COULD BE DUE TO ASYMMETRIC POSTOPERATIVE ILEUS. PARTIAL SMALL BOWEL OBSTRUCTION COULD BE PRESENT ALTHOUGH UNUSUAL SO SOON AFTER SURGERY. MODERATE FREE FLUID WELL POSTOPERATIVE FREE AIR. 2. BILATERAL LOWER LOBE CONSOLIDATIONS WITH SMALL -MODERATE PLEURAL EFFUSIONS. 3. OTHER STABLE INCIDENTAL FINDINGS ABOVE. Chest X-Ray 12/27/16 06:00 IMPRESSION: GENERALLY IMPROVED AERATION. MILD BASILAR ATELECTASIS. OTHERWISE NO CHANGE. Assessment & Plan - Diagnosis (1) Acute hypoxemic respiratory failure Is this a current diagnosis for this admission?: YesPlan: Secondary to aspiration. (2) Aspiration pneumonia Qualifiers: Aspiration pneumonia type: unspecified Laterality: bilateral Lung location: lower lobe of lung Qualified Code(s): J69.0 - Pneumonitis due to inhalation of food and vomit Is this a current diagnosis for this admission?: YesPlan: Vancomycin, Zosyn, tobramycin. (3) Sigmoid volvulus Is this a current diagnosis for this admission?: YesPlan: Has had surgical repair (4) Toxic megacolon Is this a current diagnosis for this admission?: YesPlan: Has had surgical repair (5) Acute renal failure Qualifiers: Acute renal failure type: unspecified Qualified Code(s): N17.9 - Acute kidney failure, unspecified Is this a current diagnosis for this admission?: YesPlan: Patient has a stable creatinine. Patient has been seen by nephrology. (6) BPH (benign prostatic hyperplasia) Qualifiers: Lower urinary tract symptom presence: unspecified whether lower urinary tract symptoms present Qualified Code(s): N40.0 - Benign prostatic hyperplasia without lower urinary tract symptoms Is this a current diagnosis for this admission?: Yes (7) Essential hypertension Is this a current diagnosis for this admission?: Yes (8) Hyperlipidemia, acquired Is this a current diagnosis for this admission?: Yes - Time Time Spent with patient: 25-34 minutes - Inpatient Certification Medical Necessity: Need for IV Antibiotics
[2016-12-27] MEDS ORDERED: TOBRAMYCIN SULFATE NEB 40 MG/ML 30 ML NEB ONE (11:30)
[2016-12-27] MEDS ORDERED: NORMAL SALINE 1000 ML 1,000 ML IV PRN (13:02)
[2016-12-27] MEDS: PIPERACILLIN SODIUM/TAZOBACTAM 3.375 GM in NORMAL SALINE 100 ML IV SCH ×3 (13:34→23:15)
[2016-12-27] MEDS: LOPERAMIDE HCL 2 MG CAPSULE PO SCH ×2 (13:34→21:29)
[2016-12-27] MEDS: LEVALBUTEROL HCL NEB 1.25 MG/3 ML AMPUL NEB PRN (13:40)
--- NOTE | 2016-12-27 14:09 | PDOC PROGRESS REPORT ---
Subjective Progress Note for:: 12/26/16 Subjective:: Intubated and sedated Physical Exam Vital Signs: Temp Pulse Resp BP Pulse Ox 98.6 F 73 19 108/51 L 96 12/26/16 08:00 12/26/16 08:00 12/26/16 08:00 12/26/16 08:00 12/26/16 08:00 Pulse Oximeter Continuous Start: 12/24/16 22: 07 Freq: Status: Complete Document 12/24/16 20:00 [facility] (Rec: 12/24/16 22:09 [facility] [email or web address]) Pulse Oximetry Assessment Oxygen Saturation (92-100) 100 Oxygen Flow Rate 12 Oxygen Delivery Method Non-Rebreather Fraction of Inspired Oxygen (FIO2) 100 Equipment Usage Initial Set Up Continuous Pulse Oximeter 24 Hour Charge Charge Now Continuous SpO2 Machine # [id number] Intake & Output 12/25/16 12/26/16 12/27/16 06:59 06:59 06:59 Intake Total 3197 7942 Output Total 0560 4325 185 Balance 282 3617 -185 Weight 87.4 kg 91.6 kg General appearance: PRESENT: no acute distress, disheveled, well-developed Head exam: PRESENT: atraumatic, normocephalic Eye exam: PRESENT: conjunctiva pale Mouth exam: PRESENT: dry mucosa, neck supple, tongue midline, other - ET tube in place Neck exam: ABSENT: carotid bruit, JVD, lymphadenopathy, thyromegaly Respiratory exam: PRESENT: decreased breath sounds, prolonged expiratory phas, rhonchi, symmetrical, unlabored Cardiovascular exam: PRESENT: RRR, +S1, +S2 Pulses: PRESENT: normal radial pulses GI/Abdominal exam: PRESENT: other - Status post extensive abdominal surgery. ABSENT: distended, guarding, mass, organolmegaly, rebound, tenderness Rectal exam: PRESENT: deferred Gentrourinary exam: PRESENT: indwelling catheter Musculoskeletal exam: PRESENT: normal inspection Skin exam: PRESENT: dry, warm Results Laboratory Results: 12/26/16 04:25 12/26/16 04:25 12/25/16 12/25/16 12/25/16 13:00 21:50 21:50 WBC 23.5 H RBC 3.31 L Hgb 10.3 L Hct 31.3 L MCV 95 MCH 31.0 MCHC 32.8 RDW 13.8 Plt Count 170 Seg Neutrophils % Not Reportable Lymphocytes % Not Reportable Monocytes % Not Reportable Eosinophils % Not Reportable Basophils % Not Reportable Absolute Neutrophils Not Reportable Absolute Lymphocytes Not Reportable Absolute Monocytes Not Reportable Absolute Eosinophils Not Reportable Absolute Basophils Not Reportable Carbonic Acid HCO3/H2CO3 Ratio ABG pH ABG pCO2 ABG pO2 ABG HCO3 ABG O2 Saturation ABG Base Excess FiO2 Sodium 137.8 Potassium 3.5 L Chloride 105 Carbon Dioxide 27 Anion Gap 6 BUN 50 H Creatinine 2.20 H Est GFR ( Amer) 35 L Est GFR (Non-Af Amer) 29 L Glucose 131 H Lactic Acid 1.7 Calcium 7.1 L Phosphorus Magnesium 1.8 Total Bilirubin AST ALT Alkaline Phosphatase Total Protein Albumin 12/26/16 12/26/16 12/26/16 04:25 04:25 04:25 WBC 25.4 H RBC 3.26 L Hgb 10.0 L Hct 30.6 L MCV 94 MCH 30.7 MCHC 32.8 RDW 14.2 H Plt Count 171 Seg Neutrophils % Not Reportable Lymphocytes % Not Reportable Monocytes % Not Reportable Eosinophils % Not Reportable Basophils % Not Reportable Absolute Neutrophils Not Reportable Absolute Lymphocytes Not Reportable Absolute Monocytes Not Reportable Absolute Eosinophils Not Reportable Absolute Basophils Not Reportable Carbonic Acid 1.22 HCO3/H2CO3 Ratio 22:1 ABG pH 7.45 ABG pCO2 40.4 ABG pO2 92.6 ABG HCO3 27.4 H ABG O2 Saturation 97.4 ABG Base Excess 3.2 FiO2 45% Sodium 138.8 Potassium 3.8 Chloride 107 Carbon Dioxide 26 Anion Gap 6 BUN 50 H Creatinine 2.05 H Est GFR ( Amer) 38 L Est GFR (Non-Af Amer) 31 L Glucose 125 H Lactic Acid Calcium 7.1 L Phosphorus 3.4 Magnesium 2.1 Total Bilirubin 0.5 AST 20 ALT 33 Alkaline Phosphatase 58 Total Protein 3.5 L Albumin 1.6 L 12/26/16 04:25 WBC RBC Hgb Hct MCV MCH MCHC RDW Plt Count Seg Neutrophils % Lymphocytes % Monocytes % Eosinophils % Basophils % Absolute Neutrophils Absolute Lymphocytes Absolute Monocytes Absolute Eosinophils Absolute Basophils Carbonic Acid HCO3/H2CO3 Ratio ABG pH ABG pCO2 ABG pO2 ABG HCO3 ABG O2 Saturation ABG Base Excess FiO2 Sodium Potassium Chloride Carbon Dioxide Anion Gap BUN Creatinine Est GFR ( Amer) Est GFR (Non-Af Amer) Glucose Lactic Acid 1.0 Calcium Phosphorus Magnesium Total Bilirubin AST ALT Alkaline Phosphatase Total Protein Albumin 12/25/16 06:35 Tracheal Aspirate Gram Stain - Final 12/24/16 12/24/16 12/24/16 16:50 18:10 21:50 Creatine Kinase 29 L 72 CK-MB (CK-2) Troponin I 0.036 12/24/16 12/25/16 12/25/16 21:50 00:35 00:35 Creatine Kinase 66 CK-MB (CK-2) Troponin I 0.038 0.044 12/25/16 12/25/16 21:50 21:50 Creatine Kinase 26 L CK-MB (CK-2) 0.59 Troponin I 0.033 Impressions: Chest/Abdomen CTA 12/24/16 00:00 IMPRESSION: 1. NORMAL CTA OF THE CHEST. NO PULMONARY EMBOLI. 2. MODERATE BILATERAL PLEURAL EFFUSIONS. DENSE CONSOLIDATION IN THE LOWER LOBES DUE TO ATELECTASIS. CANNOT EXCLUDE PNEUMONIA. 3. FINDINGS IN THE UPPER ABDOMEN DESCRIBED. POSTOPERATIVE TINY BUBBLES OF FREE AIR. DISTENDED STOMACH AND VISUALIZED SMALL BOWEL. KUB X-Ray 12/24/16 00:00 IMPRESSION: DIFFUSE SMALL BOWEL DILATION. MAY BE DUE TO POSTOPERATIVE ILEUS ALTHOUGH OBSTRUCTION CANNOT BE EXCLUDED. Abdomen/Pelvis CT 12/25/16 00:00 IMPRESSION: 1. SURGICAL CHANGES DESCRIBED. MODERATE DILATION OF THE STOMACH AND MAJORITY OF THE SMALL BOWEL. THERE DOES APPEAR TO BE A TRANSITION IN THE DISTAL SMALL BOWEL BEFORE THE ILEOSTOMY. THIS COULD BE DUE TO ASYMMETRIC POSTOPERATIVE ILEUS. PARTIAL SMALL BOWEL OBSTRUCTION COULD BE PRESENT ALTHOUGH UNUSUAL SO SOON AFTER SURGERY. MODERATE FREE FLUID WELL POSTOPERATIVE FREE AIR. 2. BILATERAL LOWER LOBE CONSOLIDATIONS WITH SMALL -MODERATE PLEURAL EFFUSIONS. 3. OTHER STABLE INCIDENTAL FINDINGS ABOVE. Chest X-Ray 12/26/16 06:00 IMPRESSION: Bilateral perihilar airspace opacities. Small left pleural effusion. Central vascular congestion. Pneumoperitoneum. Assessment & Plan - Diagnosis (1) Acute renal failure Qualifiers: Acute renal failure type: unspecified Qualified Code(s): N17.9 - Acute kidney failure, unspecified Is this a current diagnosis for this admission?: Yes (2) Acute respiratory failure with hypoxia and hypercapnia Is this a current diagnosis for this admission?: YesPlan: Oxygenating and ventilating mechanical ventilation (3) Aspiration into respiratory tract Is this a current diagnosis for this admission?: YesPlan: Febrile low-grade temp, WBCs elevated, GNR in sputum (4) Septic shock Is this a current diagnosis for this admission?: YesPlan: Requiring vasopressor agent - Time Critical Time spent with patient: 35 or more minutes
--- NOTE | 2016-12-27 14:16 | PDOC PROGRESS REPORT ---
Subjective Progress Note for:: 12/27/16 Subjective:: Intubated and sedated Physical Exam Vital Signs: Temp Pulse Resp BP Pulse Ox 100.5 F H 94 0 L 110/56 L 99 12/27/16 08:00 12/27/16 06:00 12/27/16 06:28 12/27/16 06:28 12/27/16 06:28 Pulse Oximeter Continuous Start: 12/24/16 22: 07 Freq: Status: Complete Document 12/24/16 20:00 [facility] (Rec: 12/24/16 22:09 [facility] [email or web address]) Pulse Oximetry Assessment Oxygen Saturation (92-100) 100 Oxygen Flow Rate (L/min) 12 Oxygen Delivery Method Non-Rebreather Fraction of Inspired Oxygen (FIO2) 100 Equipment Usage Initial Set Up Continuous Pulse Oximeter 24 Hour Charge Charge Now Continuous SpO2 Machine # [id number] Intake & Output 12/26/16 12/27/16 12/28/16 06:59 06:59 06:59 Intake Total 7942 3587 Output Total 4325 3035 Balance 3617 552 Weight 91.6 kg 88.7 kg General appearance: PRESENT: no acute distress, disheveled, well-developed Head exam: PRESENT: atraumatic, normocephalic Eye exam: PRESENT: conjunctiva pale Mouth exam: PRESENT: dry mucosa, neck supple, tongue midline, other - ET tube intact Neck exam: ABSENT: carotid bruit, JVD, lymphadenopathy, thyromegaly Respiratory exam: PRESENT: decreased breath sounds, prolonged expiratory phas, rales, rhonchi, unlabored Cardiovascular exam: PRESENT: RRR, +S1, +S2 Pulses: PRESENT: normal radial pulses GI/Abdominal exam: PRESENT: other - Status post abdominal surgery Rectal exam: PRESENT: deferred Gentrourinary exam: PRESENT: indwelling catheter Musculoskeletal exam: PRESENT: normal inspection Skin exam: PRESENT: dry, warm Results Laboratory Results: 12/27/16 04:34 12/27/16 04:34 12/25/16 12/26/16 12/26/16 06:35 04:25 21:45 WBC 27.8 H RBC 3.94 L Hgb 12.1 L Hct 37.5 L MCV 95 MCH 30.6 MCHC 32.1 RDW 13.7 Plt Count 231 Carbonic Acid HCO3/H2CO3 Ratio ABG pH ABG pCO2 ABG pO2 ABG HCO3 ABG O2 Saturation ABG Base Excess FiO2 Sodium Potassium Chloride Carbon Dioxide Anion Gap BUN Creatinine Est GFR ( Amer) Est GFR (Non-Af Amer) Glucose Calcium Phosphorus Magnesium Total Bilirubin AST ALT Alkaline Phosphatase Total Protein Albumin Prealbumin Triglycerides 105 107 12/27/16 12/27/16 12/27/16 04:34 04:34 04:34 WBC 14.2 H RBC 3.05 L Hgb 9.4 L Hct 29.0 L MCV 95 MCH 30.9 MCHC 32.5 RDW 14.2 H Plt Count 154 Carbonic Acid 0.98 L HCO3/H2CO3 Ratio 21:1 ABG pH 7.44 ABG pCO2 32.4 L ABG pO2 91.8 ABG HCO3 21.4 ABG O2 Saturation 97.3 ABG Base Excess -2.3 FiO2 40% Sodium 142.1 Potassium 3.7 Chloride 111 H Carbon Dioxide 26 Anion Gap 5 BUN 47 H Creatinine 1.85 H Est GFR ( Amer) 43 L Est GFR (Non-Af Amer) 35 L Glucose 141 H Calcium 7.1 L Phosphorus 3.4 Magnesium 2.0 Total Bilirubin 0.4 AST 21 ALT 38 Alkaline Phosphatase 82 Total Protein 3.5 L Albumin 1.6 L Prealbumin 5.5 L Triglycerides 12/26/16 10:00 Tracheal Aspirate Gram Stain - Final 12/25/16 06:35 Tracheal Aspirate Gram Stain - Final 12/24/16 12/24/16 12/24/16 16:50 18:10 21:50 Creatine Kinase 29 L 72 CK-MB (CK-2) Troponin I 0.036 12/24/16 12/25/16 12/25/16 21:50 00:35 00:35 Creatine Kinase 66 CK-MB (CK-2) Troponin I 0.038 0.044 12/25/16 12/25/16 21:50 21:50 Creatine Kinase 26 L CK-MB (CK-2) 0.59 Troponin I 0.033 Impressions: Chest/Abdomen CTA 12/24/16 00:00 IMPRESSION: 1. NORMAL CTA OF THE CHEST. NO PULMONARY EMBOLI. 2. MODERATE BILATERAL PLEURAL EFFUSIONS. DENSE CONSOLIDATION IN THE LOWER LOBES DUE TO ATELECTASIS. CANNOT EXCLUDE PNEUMONIA. 3. FINDINGS IN THE UPPER ABDOMEN DESCRIBED. POSTOPERATIVE TINY BUBBLES OF FREE AIR. DISTENDED STOMACH AND VISUALIZED SMALL BOWEL. KUB X-Ray 12/24/16 00:00 IMPRESSION: DIFFUSE SMALL BOWEL DILATION. MAY BE DUE TO POSTOPERATIVE ILEUS ALTHOUGH OBSTRUCTION CANNOT BE EXCLUDED. Abdomen/Pelvis CT 12/25/16 00:00 IMPRESSION: 1. SURGICAL CHANGES DESCRIBED. MODERATE DILATION OF THE STOMACH AND MAJORITY OF THE SMALL BOWEL. THERE DOES APPEAR TO BE A TRANSITION IN THE DISTAL SMALL BOWEL BEFORE THE ILEOSTOMY. THIS COULD BE DUE TO ASYMMETRIC POSTOPERATIVE ILEUS. PARTIAL SMALL BOWEL OBSTRUCTION COULD BE PRESENT ALTHOUGH UNUSUAL SO SOON AFTER SURGERY. MODERATE FREE FLUID WELL POSTOPERATIVE FREE AIR. 2. BILATERAL LOWER LOBE CONSOLIDATIONS WITH SMALL -MODERATE PLEURAL EFFUSIONS. 3. OTHER STABLE INCIDENTAL FINDINGS ABOVE. Chest X-Ray 12/27/16 06:00 IMPRESSION: GENERALLY IMPROVED AERATION. MILD BASILAR ATELECTASIS. OTHERWISE NO CHANGE. Assessment & Plan - Diagnosis (1) Acute renal failure Qualifiers: Acute renal failure type: unspecified Qualified Code(s): N17.9 - Acute kidney failure, unspecified Is this a current diagnosis for this admission?: YesPlan: Labs- All tests 24 hr 12/27/16 04:34 BUN 47 H Creatinine 1.85 H Improving creatinine and BUN approximately the same (2) Acute respiratory failure with hypoxia and hypercapnia Plan: Labs- All tests 24 hr 12/26/16 12/27/16 04:25 04:34 ABG pH 7.45 7.44 ABG pCO2 40.4 32.4 L ABG pO2 92.6 91.8 FiO2 45% 40% Stable at this time (3) Aspiration into respiratory tract Is this a current diagnosis for this admission?: YesPlan: Febrile low-grade temp, WBCs elevated, GNR in sputum Labs- All tests 24 hr 12/26/16 12/27/16 04:25 04:34 WBC 25.4 H 14.2 H Seg Neuts % (Manual) 85 H Band Neutrophils % 4 12/26/16 10:00 Gram Stain - Final Tracheal Aspirate Sputum Culture - Final Enterobacter Cloacae Normal Elise Absent 12/25/16 06:35 Gram Stain - Final Tracheal Aspirate Sputum Culture - Final Enterobacter Cloacae Normal Elise Absent (4) Septic shock Is this a current diagnosis for this admission?: YesPlan: Continues on vasopressor agent - Time Critical Time spent with patient: 35 or more minutes - 50 minutes
[2016-12-27] MEDS: AMINO ACIDS 5%/D25W 1,000 ML IV PRN (15:58)
--- NOTE | 2016-12-27 17:10 | PDOC PROGRESS REPORT ---
Subjective Progress Note for:: 12/27/16 Subjective:: Patient seen in the hospital in the ICU today. He is more awake though still intubated. His is at the bedside. Able to follow some oral commands.Reviewed labs and medications. Patient currently on TPN with plans to convert to tube feeds off okayed by surgeons this morning. Physical Exam Vital Signs: Temp Pulse Resp BP Pulse Ox 98.3 F 85 24 H 117/51 L 99 12/27/16 12:00 12/27/16 14:00 12/27/16 14:00 12/27/16 14:00 12/27/16 14:00 Pulse Oximeter Continuous Start: 12/24/16 22: 07 Freq: Status: Complete Document 12/24/16 20:00 [facility] (Rec: 12/24/16 22:09 [facility] [email or web address]) Pulse Oximetry Assessment Oxygen Saturation (92-100) 100 Oxygen Flow Rate (L/min) 12 Oxygen Delivery Method Non-Rebreather Fraction of Inspired Oxygen (FIO2) 100 Equipment Usage Initial Set Up Continuous Pulse Oximeter 24 Hour Charge Charge Now Continuous SpO2 Machine # [id number]-6 Intake & Output 12/26/16 12/27/16 12/28/16 06:59 06:59 06:59 Intake Total 7942 3587 Output Total 4325 3035 825 Balance 3617 552 -825 Weight 91.6 kg 88.7 kg Exam: Remains intubated but less sedated.Able to follow some commands. Respiratory exam: PRESENT: clear to auscultation annabel, crackles. ABSENT: rhonchi Cardiovascular exam: PRESENT: +S1, +S2 GI/Abdominal exam: PRESENT: hypoactive bowel sounds, soft. ABSENT: ascites, firm, guarding Extremities exam: PRESENT: pedal edema - Trace to 1+. Results Laboratory Results: 12/27/16 04:34 12/27/16 04:34 12/26/16 12/27/16 12/27/16 21:45 04:34 04:34 WBC 14.2 H RBC 3.05 L Hgb 9.4 L Hct 29.0 L MCV 95 MCH 30.9 MCHC 32.5 RDW 14.2 H Plt Count 154 Carbonic Acid 0.98 L HCO3/H2CO3 Ratio 21:1 ABG pH 7.44 ABG pCO2 32.4 L ABG pO2 91.8 ABG HCO3 21.4 ABG O2 Saturation 97.3 ABG Base Excess -2.3 FiO2 40% Sodium Potassium Chloride Carbon Dioxide Anion Gap BUN Creatinine Est GFR ( Amer) Est GFR (Non-Af Amer) Glucose Calcium Phosphorus Magnesium Total Bilirubin AST ALT Alkaline Phosphatase Total Protein Albumin Prealbumin Triglycerides 107 12/27/16 04:34 WBC RBC Hgb Hct MCV MCH MCHC RDW Plt Count Carbonic Acid HCO3/H2CO3 Ratio ABG pH ABG pCO2 ABG pO2 ABG HCO3 ABG O2 Saturation ABG Base Excess FiO2 Sodium 142.1 Potassium 3.7 Chloride 111 H Carbon Dioxide 26 Anion Gap 5 BUN 47 H Creatinine 1.85 H Est GFR ( Amer) 43 L Est GFR (Non-Af Amer) 35 L Glucose 141 H Calcium 7.1 L Phosphorus 3.4 Magnesium 2.0 Total Bilirubin 0.4 AST 21 ALT 38 Alkaline Phosphatase 82 Total Protein 3.5 L Albumin 1.6 L Prealbumin 5.5 L Triglycerides 12/26/16 10:00 Tracheal Aspirate Gram Stain - Final 12/26/16 10:00 Tracheal Aspirate Sputum Culture - Final Enterobacter Cloacae Normal Elise Absent 12/25/16 06:35 Tracheal Aspirate Gram Stain - Final 12/25/16 06:35 Tracheal Aspirate Sputum Culture - Final Enterobacter Cloacae Normal Elise Absent 12/25/16 08:10 Catheterized Urine Urine Culture - Final NO GROWTH 2 DAYS 12/24/16 12/24/16 12/24/16 16:50 18:10 21:50 Creatine Kinase 29 L 72 CK-MB (CK-2) Troponin I 0.036 12/24/16 12/25/16 12/25/16 21:50 00:35 00:35 Creatine Kinase 66 CK-MB (CK-2) Troponin I 0.038 0.044 12/25/16 12/25/16 21:50 21:50 Creatine Kinase 26 L CK-MB (CK-2) 0.59 Troponin I 0.033 Impressions: Chest/Abdomen CTA 12/24/16 00:00 IMPRESSION: 1. NORMAL CTA OF THE CHEST. NO PULMONARY EMBOLI. 2. MODERATE BILATERAL PLEURAL EFFUSIONS. DENSE CONSOLIDATION IN THE LOWER LOBES DUE TO ATELECTASIS. CANNOT EXCLUDE PNEUMONIA. 3. FINDINGS IN THE UPPER ABDOMEN DESCRIBED. POSTOPERATIVE TINY BUBBLES OF FREE AIR. DISTENDED STOMACH AND VISUALIZED SMALL BOWEL. KUB X-Ray 12/24/16 00:00 IMPRESSION: DIFFUSE SMALL BOWEL DILATION. MAY BE DUE TO POSTOPERATIVE ILEUS ALTHOUGH OBSTRUCTION CANNOT BE EXCLUDED. Abdomen/Pelvis CT 12/25/16 00:00 IMPRESSION: 1. SURGICAL CHANGES DESCRIBED. MODERATE DILATION OF THE STOMACH AND MAJORITY OF THE SMALL BOWEL. THERE DOES APPEAR TO BE A TRANSITION IN THE DISTAL SMALL BOWEL BEFORE THE ILEOSTOMY. THIS COULD BE DUE TO ASYMMETRIC POSTOPERATIVE ILEUS. PARTIAL SMALL BOWEL OBSTRUCTION COULD BE PRESENT ALTHOUGH UNUSUAL SO SOON AFTER SURGERY. MODERATE FREE FLUID WELL POSTOPERATIVE FREE AIR. 2. BILATERAL LOWER LOBE CONSOLIDATIONS WITH SMALL -MODERATE PLEURAL EFFUSIONS. 3. OTHER STABLE INCIDENTAL FINDINGS ABOVE. Chest X-Ray 12/27/16 06:00 IMPRESSION: GENERALLY IMPROVED AERATION. MILD BASILAR ATELECTASIS. OTHERWISE NO CHANGE. Assessment & Plan - Diagnosis (1) Acute hypoxemic respiratory failure Is this a current diagnosis for this admission?: YesPlan: Patient currently intubated but currently less sedated. (2) Acute renal failure Qualifiers: Acute renal failure type: unspecified Qualified Code(s): N17.9 - Acute kidney failure, unspecified Is this a current diagnosis for this admission?: YesPlan: Secondary to ATN from septic shock. He is nonoliguric. Slight improvement in his renal numbers.Showing early signs of fluid overload. Therefore will cut back on his normal saline. Introduce low-dose diuretics. Monitor closely. No indications for renal replacements. (3) Adynamic ileus Is this a current diagnosis for this admission?: YesPlan: Showing early signs of recovery with more active bowel sounds. Abdomen soft and nontender. (4) Aspiration pneumonia Qualifiers: Aspiration pneumonia type: unspecified Laterality: bilateral Lung location: lower lobe of lung Qualified Code(s): J69.0 - Pneumonitis due to inhalation of food and vomit Is this a current diagnosis for this admission?: YesPlan: On antibiotics to cover Enterobacter which is growing from his sputum. (5) Hypotension Qualifiers: Hypotension type: unspecified hypotension type Qualified Code(s): I95.9 - Hypotension, unspecified Is this a current diagnosis for this admission?: YesPlan: Off pressors and clinically stable. Monitor. (6) Septic shock Is this a current diagnosis for this admission?: YesPlan: Improving well. No symptoms of multisystem organ failure currently. (7) Sigmoid volvulus Is this a current diagnosis for this admission?: YesPlan: With toxic megacolon which led to his bowel obstruction and need for immediate surgical intervention. (8) Toxic megacolon Is this a current diagnosis for this admission?: Yes
[2016-12-27] MEDS: INSULIN REG, HUMAN 100 UNIT/ML 3 ML VIAL (PYX) SUBCUT PRN (17:12)
[2016-12-27] MEDS ORDERED: TOBRAMYCIN SULFATE INJ 80 MG/2 ML VIAL NEB SCH ×2 (20:00)
[2016-12-27] MEDS: TOBRAMYCIN SULFATE NEB 40 MG/ML 30 ML NEB SCH (20:55)
[2016-12-27] MEDS: FUROSEMIDE INJ/PF 20 MG/2 ML SDV IV SCH (21:28)
[2016-12-28] MEDS: INSULIN REG, HUMAN 100 UNIT/ML 3 ML VIAL (PYX) SUBCUT PRN ×2 (00:06→23:34)
[2016-12-28] MEDS: PROPOFOL 100 ML IV PRN ×4 (02:50→21:02)
[2016-12-28] MEDS: LOPERAMIDE HCL 2 MG CAPSULE PO SCH ×3 (05:34→21:04)
[2016-12-28] MEDS: PIPERACILLIN SODIUM/TAZOBACTAM 3.375 GM in NORMAL SALINE 100 ML IV SCH ×4 (05:34→23:34)
[2016-12-28 06:14] LABS: ALANINE AMINOTRANSFERASE 37 U/L (21-72); ALBUMIN 1.5 g/dL (3.5-5.0); ALKALINE PHOSPHATASE 97 U/L (38-126); ASPARTATE AMINO TRANSFERASE 28 U/L (17-59); BILIRUBIN,DIRECT 0.2 mg/dL (0.0-0.4); BILIRUBIN,TOTAL 0.2 mg/dL (0.2-1.3); BLOOD UREA NITROGEN 42 mg/dL (7-20); CALCIUM 7.1 mg/dL (8.4-10.2); CREATININE RESULT 1.69 mg/dL (0.52-1.25); GLUCOSE 185 mg/dL (75-110); TOTAL PROTEIN 3.4 g/dL (6.3-8.2)
[2016-12-28 06:21] LABS: PREALBUMIN 6.6 mg/dL (17.6-36.0)
[2016-12-28 06:35] LABS: ANION GAP 6 (5-19); CARBON DIOXIDE 24 mmol/L (22-30); CHLORIDE 112 mmol/L (98-107); POTASSIUM 3.5 mmol/L (3.6-5.0); SODIUM 141.9 mmol/L (137-145)
[2016-12-28] MEDS: LEVALBUTEROL HCL NEB 1.25 MG/3 ML AMPUL NEB PRN (08:03)
[2016-12-28] MEDS: TOBRAMYCIN SULFATE NEB 40 MG/ML 30 ML NEB SCH ×2 (08:03→21:04)
[2016-12-28 08:46] LABS: ARTERIAL BLOOD BASE EXCESS -1.6 mmol/L; ARTERIAL BLOOD O2 SATURATION 97.6 % (94-98)
[2016-12-28 08:48] LABS: HEMATOCRIT 26.3 % (37.9-51.0); HEMOGLOBIN 8.7 g/dL (13.5-17.0); HGB HCT DIFFERENCE -0.2; MEAN CORPUSCULAR HEMOGLOBIN 31.4 pg (27.0-33.4); MEAN CORPUSCULAR VOLUME 95 fl (80-97); RED BLOOD COUNT 2.77 10^6/uL (4.35-5.55); RED CELL DISTRIBUTION WIDTH 14.1 % (11.5-14.0); WHITE BLOOD COUNT 10.3 10^3/uL (4.0-10.5)
[2016-12-28 08:49] LABS: PROTHROMBIN TIME 15.3 SEC (11.4-15.4)
[2016-12-28 08:50] LABS: PARTIAL THROMBOPLASTIN TIME 33.6 SEC (23.5-35.8)
[2016-12-28 09:12] LABS: BAND NEUTROPHILS % (MANUAL) 1 % (3-5); BASOPHILS % (MANUAL) 1 % (0-2); EOSINOPHILS % (MANUAL) 1 % (0-6); LYMPHOCYTES % (MANUAL) 2 % (13-45); POLYCHROMASIA SLIGHT; TOTAL CELLS COUNTED 100; TOXIC GRANULATION 1+
[2016-12-28] MEDS: VANCOMYCIN HCL 1,250 MG in DEXTROSE 5%-WATER 250 ML IV SCH (10:04)
[2016-12-28] MEDS: ENOXAPARIN SODIUM INJ 40 MG/0.4 ML DISP.SYRIN SUBCUT SCH (10:05)
[2016-12-28] MEDS: FUROSEMIDE INJ/PF 20 MG/2 ML SDV IV SCH ×2 (10:06→21:03)
--- NOTE | 2016-12-28 10:51 | PDOC PROGRESS REPORT ---
Subjective Progress Note for:: 12/28/16 Subjective:: The patient is on the ventilator but is able to nod his head yes or no. Physical Exam Vital Signs: Temp Pulse Resp BP Pulse Ox 99.2 F 72 20 103/41 L 98 12/28/16 07:59 12/28/16 08:03 12/28/16 08:03 12/28/16 07:59 12/28/16 10:05 Pulse Oximeter Continuous Start: 12/24/16 22: 07 Freq: Status: Complete Document 12/24/16 20:00 [facility] (Rec: 12/24/16 22:09 [facility] [email or web address]) Pulse Oximetry Assessment Oxygen Saturation (92-100) 100 Oxygen Flow Rate (L/min) 12 Oxygen Delivery Method Non-Rebreather Fraction of Inspired Oxygen (FIO2) 100 Equipment Usage Initial Set Up Continuous Pulse Oximeter 24 Hour Charge Charge Now Continuous SpO2 Machine # [id number] Intake & Output 12/27/16 12/28/16 12/29/16 06:59 06:59 06:59 Intake Total 3587 3565 Output Total 3038 3850 20 Balance 552 -285 -20 Weight 88.7 kg 91.4 kg General appearance: PRESENT: no acute distress Eye exam: PRESENT: conjunctiva pink. ABSENT: scleral icterus Mouth exam: PRESENT: moist, tongue midline Neck exam: ABSENT: JVD Respiratory exam: PRESENT: clear to auscultation annabel. ABSENT: rales, rhonchi, wheezes Cardiovascular exam: PRESENT: RRR. ABSENT: diastolic murmur, rubs, systolic murmur GI/Abdominal exam: PRESENT: normal bowel sounds, soft, other - Colostomy draining. ABSENT: distended, guarding, mass, organolmegaly, rebound, tenderness Extremities exam: ABSENT: calf tenderness, clubbing, pedal edema Neurological exam: PRESENT: alert, awake, oriented to person, oriented to place , oriented to time, oriented to situation, CN II-XII grossly intact. ABSENT: motor sensory deficit Psychiatric exam: PRESENT: appropriate affect Skin exam: PRESENT: dry, intact, warm. ABSENT: cyanosis, rash Results Laboratory Results: 12/28/16 08:15 12/28/16 05:25 12/28/16 12/28/16 12/28/16 00:20 05:25 08:15 WBC 10.3 RBC 2.77 L Hgb 8.7 L Hct 26.3 L MCV 95 MCH 31.4 MCHC 33.0 RDW 14.1 H Plt Count 159 Seg Neutrophils % Not Reportable Lymphocytes % Not Reportable Monocytes % Not Reportable Eosinophils % Not Reportable Basophils % Not Reportable Absolute Neutrophils Not Reportable Absolute Lymphocytes Not Reportable Absolute Monocytes Not Reportable Absolute Eosinophils Not Reportable Absolute Basophils Not Reportable Carbonic Acid HCO3/H2CO3 Ratio ABG pH ABG pCO2 ABG pO2 ABG HCO3 ABG O2 Saturation ABG Base Excess FiO2 Sodium 141.9 Potassium 3.5 L Chloride 112 H Carbon Dioxide 24 Anion Gap 6 BUN 42 H Creatinine 1.69 H Est GFR ( Amer) 47 L Est GFR (Non-Af Amer) 39 L Glucose 185 H Calcium 7.1 L Phosphorus 3.0 Total Bilirubin 0.2 AST 28 ALT 37 Alkaline Phosphatase 97 Total Protein 3.4 L Albumin 1.5 L Prealbumin 6.6 L Triglycerides 93 12/28/16 08:15 WBC RBC Hgb Hct MCV MCH MCHC RDW Plt Count Seg Neutrophils % Lymphocytes % Monocytes % Eosinophils % Basophils % Absolute Neutrophils Absolute Lymphocytes Absolute Monocytes Absolute Eosinophils Absolute Basophils Carbonic Acid 1.18 HCO3/H2CO3 Ratio 19:1 ABG pH 7.39 ABG pCO2 39.3 ABG pO2 102.1 H ABG HCO3 23.2 ABG O2 Saturation 97.6 ABG Base Excess -1.6 FiO2 40% Sodium Potassium Chloride Carbon Dioxide Anion Gap BUN Creatinine Est GFR ( Amer) Est GFR (Non-Af Amer) Glucose Calcium Phosphorus Total Bilirubin AST ALT Alkaline Phosphatase Total Protein Albumin Prealbumin Triglycerides 12/26/16 10:00 Tracheal Aspirate Gram Stain - Final 12/26/16 10:00 Tracheal Aspirate Sputum Culture - Final Enterobacter Cloacae Normal Elise Absent 12/25/16 06:35 Tracheal Aspirate Gram Stain - Final 12/25/16 06:35 Tracheal Aspirate Sputum Culture - Final Enterobacter Cloacae Normal Elise Absent 12/25/16 08:10 Catheterized Urine Urine Culture - Final NO GROWTH 2 DAYS 12/24/16 12/24/16 12/24/16 16:50 18:10 21:50 Creatine Kinase 29 L 72 CK-MB (CK-2) Troponin I 0.036 12/24/16 12/25/16 12/25/16 21:50 00:35 00:35 Creatine Kinase 66 CK-MB (CK-2) Troponin I 0.038 0.044 12/25/16 12/25/16 21:50 21:50 Creatine Kinase 26 L CK-MB (CK-2) 0.59 Troponin I 0.033 Impressions: Chest/Abdomen CTA 12/24/16 00:00 IMPRESSION: 1. NORMAL CTA OF THE CHEST. NO PULMONARY EMBOLI. 2. MODERATE BILATERAL PLEURAL EFFUSIONS. DENSE CONSOLIDATION IN THE LOWER LOBES DUE TO ATELECTASIS. CANNOT EXCLUDE PNEUMONIA. 3. FINDINGS IN THE UPPER ABDOMEN DESCRIBED. POSTOPERATIVE TINY BUBBLES OF FREE AIR. DISTENDED STOMACH AND VISUALIZED SMALL BOWEL. KUB X-Ray 12/24/16 00:00 IMPRESSION: DIFFUSE SMALL BOWEL DILATION. MAY BE DUE TO POSTOPERATIVE ILEUS ALTHOUGH OBSTRUCTION CANNOT BE EXCLUDED. Abdomen/Pelvis CT 12/25/16 00:00 IMPRESSION: 1. SURGICAL CHANGES DESCRIBED. MODERATE DILATION OF THE STOMACH AND MAJORITY OF THE SMALL BOWEL. THERE DOES APPEAR TO BE A TRANSITION IN THE DISTAL SMALL BOWEL BEFORE THE ILEOSTOMY. THIS COULD BE DUE TO ASYMMETRIC POSTOPERATIVE ILEUS. PARTIAL SMALL BOWEL OBSTRUCTION COULD BE PRESENT ALTHOUGH UNUSUAL SO SOON AFTER SURGERY. MODERATE FREE FLUID WELL POSTOPERATIVE FREE AIR. 2. BILATERAL LOWER LOBE CONSOLIDATIONS WITH SMALL -MODERATE PLEURAL EFFUSIONS. 3. OTHER STABLE INCIDENTAL FINDINGS ABOVE. Chest X-Ray 12/27/16 06:00 IMPRESSION: GENERALLY IMPROVED AERATION. MILD BASILAR ATELECTASIS. OTHERWISE NO CHANGE. Assessment & Plan - Diagnosis (1) Acute hypoxemic respiratory failure Is this a current diagnosis for this admission?: YesPlan: Secondary to aspiration. Patient currently on the ventilator. This is being managed by pulmonary medicine (2) Aspiration pneumonia Qualifiers: Aspiration pneumonia type: unspecified Laterality: bilateral Lung location: lower lobe of lung Qualified Code(s): J69.0 - Pneumonitis due to inhalation of food and vomit Is this a current diagnosis for this admission?: YesPlan: We will continue with vancomycin, Zosyn, tobramycin. (3) Sigmoid volvulus Is this a current diagnosis for this admission?: YesPlan: Has had surgical repair (4) Toxic megacolon Is this a current diagnosis for this admission?: YesPlan: Has had surgical repair. 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 followed by nephrology. (6) BPH (benign prostatic hyperplasia) Qualifiers: Lower urinary tract symptom presence: unspecified whether lower urinary tract symptoms present Qualified Code(s): N40.0 - Benign prostatic hyperplasia without lower urinary tract symptoms Is this a current diagnosis for this admission?: Yes (7) Essential hypertension Is this a current diagnosis for this admission?: Yes (8) Hyperlipidemia, acquired Is this a current diagnosis for this admission?: Yes (9) Adynamic ileus Is this a current diagnosis for this admission?: YesPlan: Has been getting TPN and tube feeds have been started. Will defer to surgery as to whether continue with the TPN or stop it at this time. - Time Time Spent with patient: 15-24 minutes - Inpatient Certification Medical Necessity: Need Close Monitoring Due to Risk of Patient Decompensation
--- NOTE | 2016-12-28 11:06 | PDOC PROGRESS REPORT ---
Subjective Progress Note for:: 12/28/16 Subjective:: Patient failed attempt at a pressure support and CPAP continues to have diaphragmatic spasms Physical Exam Vital Signs: Temp Pulse Resp BP Pulse Ox 99.2 F 69 20 103/41 L 99 12/28/16 07:59 12/28/16 07:59 12/28/16 07:59 12/28/16 07:59 12/28/16 07:59 Pulse Oximeter Continuous Start: 12/24/16 22: 07 Freq: Status: Complete Document 12/24/16 20:00 [facility] (Rec: 12/24/16 22:09 [facility] [email or web address]) Pulse Oximetry Assessment Oxygen Saturation (92-100) 100 Oxygen Flow Rate (L/min) 12 Oxygen Delivery Method Non-Rebreather Fraction of Inspired Oxygen (FIO2) 100 Equipment Usage Initial Set Up Continuous Pulse Oximeter 24 Hour Charge Charge Now Continuous SpO2 Machine # [id number] Intake & Output 12/27/16 12/28/16 12/29/16 06:59 06:59 06:59 Intake Total 3587 3565 Output Total 3034 3850 20 Balance 552 -285 -20 Weight 88.7 kg 91.4 kg General appearance: PRESENT: no acute distress, disheveled, thin, well-developed Head exam: PRESENT: atraumatic, normocephalic Eye exam: PRESENT: conjunctiva pale Mouth exam: PRESENT: dry mucosa, neck supple, tongue midline, other - ET tube in place Neck exam: ABSENT: carotid bruit, JVD, lymphadenopathy, thyromegaly Respiratory exam: PRESENT: decreased breath sounds, prolonged expiratory phas, rales, rhonchi, symmetrical, unlabored Cardiovascular exam: PRESENT: RRR, +S1, +S2, other Pulses: PRESENT: normal radial pulses GI/Abdominal exam: PRESENT: soft, other Rectal exam: PRESENT: deferred, other - Ostomy draining copiously Gentrourinary exam: PRESENT: indwelling catheter Musculoskeletal exam: PRESENT: normal inspection Skin exam: PRESENT: dry, warm Results Laboratory Results: 12/27/16 04:34 12/28/16 05:25 12/28/16 12/28/16 00:20 05:25 Sodium 141.9 Potassium 3.5 L Chloride 112 H Carbon Dioxide 24 Anion Gap 6 BUN 42 H Creatinine 1.69 H Est GFR ( Amer) 47 L Est GFR (Non-Af Amer) 39 L Glucose 185 H Calcium 7.1 L Phosphorus 3.0 Total Bilirubin 0.2 AST 28 ALT 37 Alkaline Phosphatase 97 Total Protein 3.4 L Albumin 1.5 L Prealbumin 6.6 L Triglycerides 93 12/26/16 10:00 Tracheal Aspirate Gram Stain - Final 12/26/16 10:00 Tracheal Aspirate Sputum Culture - Final Enterobacter Cloacae Normal Elise Absent 12/25/16 06:35 Tracheal Aspirate Gram Stain - Final 12/25/16 06:35 Tracheal Aspirate Sputum Culture - Final Enterobacter Cloacae Normal Elise Absent 12/25/16 08:10 Catheterized Urine Urine Culture - Final NO GROWTH 2 DAYS 12/24/16 12/24/16 12/24/16 16:50 18:10 21:50 Creatine Kinase 29 L 72 CK-MB (CK-2) Troponin I 0.036 12/24/16 12/25/16 12/25/16 21:50 00:35 00:35 Creatine Kinase 66 CK-MB (CK-2) Troponin I 0.038 0.044 12/25/16 12/25/16 21:50 21:50 Creatine Kinase 26 L CK-MB (CK-2) 0.59 Troponin I 0.033 Impressions: Chest/Abdomen CTA 12/24/16 00:00 IMPRESSION: 1. NORMAL CTA OF THE CHEST. NO PULMONARY EMBOLI. 2. MODERATE BILATERAL PLEURAL EFFUSIONS. DENSE CONSOLIDATION IN THE LOWER LOBES DUE TO ATELECTASIS. CANNOT EXCLUDE PNEUMONIA. 3. FINDINGS IN THE UPPER ABDOMEN DESCRIBED. POSTOPERATIVE TINY BUBBLES OF FREE AIR. DISTENDED STOMACH AND VISUALIZED SMALL BOWEL. KUB X-Ray 12/24/16 00:00 IMPRESSION: DIFFUSE SMALL BOWEL DILATION. MAY BE DUE TO POSTOPERATIVE ILEUS ALTHOUGH OBSTRUCTION CANNOT BE EXCLUDED. Abdomen/Pelvis CT 12/25/16 00:00 IMPRESSION: 1. SURGICAL CHANGES DESCRIBED. MODERATE DILATION OF THE STOMACH AND MAJORITY OF THE SMALL BOWEL. THERE DOES APPEAR TO BE A TRANSITION IN THE DISTAL SMALL BOWEL BEFORE THE ILEOSTOMY. THIS COULD BE DUE TO ASYMMETRIC POSTOPERATIVE ILEUS. PARTIAL SMALL BOWEL OBSTRUCTION COULD BE PRESENT ALTHOUGH UNUSUAL SO SOON AFTER SURGERY. MODERATE FREE FLUID WELL POSTOPERATIVE FREE AIR. 2. BILATERAL LOWER LOBE CONSOLIDATIONS WITH SMALL -MODERATE PLEURAL EFFUSIONS. 3. OTHER STABLE INCIDENTAL FINDINGS ABOVE. Chest X-Ray 12/27/16 06:00 IMPRESSION: GENERALLY IMPROVED AERATION. MILD BASILAR ATELECTASIS. OTHERWISE NO CHANGE. Assessment & Plan - Diagnosis (1) Acute renal failure Qualifiers: Acute renal failure type: unspecified Qualified Code(s): N17.9 - Acute kidney failure, unspecified Is this a current diagnosis for this admission?: YesPlan: Creatinine still elevated but improving (2) Acute respiratory failure with hypoxia and hypercapnia Is this a current diagnosis for this admission?: YesPlan: Ventilation adequate still requiring relatively high FiO2 (3) Aspiration into respiratory tract Is this a current diagnosis for this admission?: YesPlan: Continue to aspirate purulent secretions from ET tube even though no positive cultures thus far (4) Septic shock Is this a current diagnosis for this admission?: Yes - Time Critical Time spent with patient: 35 or more minutes - Spoke with RN and PCP then. RN total 55 minutes
--- NOTE | 2016-12-28 11:48 | PDOC PROGRESS REPORT ---
Subjective Progress Note for:: 12/28/16 Subjective:: Patient seen in the ICU today. He remains intubated and more sedated today. Discussions were done with the treating nurse Leticia. Apparently he did not take well to the weaning process and so it has been postponed. He is currently tolerating tube feeds along with TPN. Fluids have been cut down to 2 minimal. Is making urine as well as stool. No complaints of any fever or chills.His labs and medications were reviewed. Physical Exam Vital Signs: Temp Pulse Resp BP Pulse Ox 97.9 F 78 20 121/51 L 99 12/28/16 10:00 12/28/16 10:00 12/28/16 11:15 12/28/16 11:08 12/28/16 11:15 Pulse Oximeter Continuous Start: 12/24/16 22: 07 Freq: Status: Complete Document 12/24/16 20:00 [facility] (Rec: 12/24/16 22:09 [facility] [email or web address]) Pulse Oximetry Assessment Oxygen Saturation (92-100) 100 Oxygen Flow Rate (L/min) 12 Oxygen Delivery Method Non-Rebreather Fraction of Inspired Oxygen (FIO2) 100 Equipment Usage Initial Set Up Continuous Pulse Oximeter 24 Hour Charge Charge Now Continuous SpO2 Machine # [id number] Intake & Output 12/27/16 12/28/16 12/29/16 06:59 06:59 06:59 Intake Total 3587 3565 Output Total 3036 3850 305 Balance 552 -285 -305 Weight 88.7 kg 91.4 kg Exam: Remains intubated and sedated. Respiratory exam: PRESENT: clear to auscultation annabel. ABSENT: crackles, rhonchi Cardiovascular exam: PRESENT: +S1, +S2 GI/Abdominal exam: PRESENT: normal bowel sounds, soft. ABSENT: ascites, firm, guarding Extremities exam: PRESENT: pedal edema - Trace plus Skin exam: ABSENT: erythema, mottled, rash Results Laboratory Results: 12/28/16 08:15 12/28/16 05:25 12/28/16 12/28/16 12/28/16 00:20 05:25 08:15 WBC 10.3 RBC 2.77 L Hgb 8.7 L Hct 26.3 L MCV 95 MCH 31.4 MCHC 33.0 RDW 14.1 H Plt Count 159 Seg Neutrophils % Not Reportable Lymphocytes % Not Reportable Monocytes % Not Reportable Eosinophils % Not Reportable Basophils % Not Reportable Absolute Neutrophils Not Reportable Absolute Lymphocytes Not Reportable Absolute Monocytes Not Reportable Absolute Eosinophils Not Reportable Absolute Basophils Not Reportable Carbonic Acid HCO3/H2CO3 Ratio ABG pH ABG pCO2 ABG pO2 ABG HCO3 ABG O2 Saturation ABG Base Excess FiO2 Sodium 141.9 Potassium 3.5 L Chloride 112 H Carbon Dioxide 24 Anion Gap 6 BUN 42 H Creatinine 1.69 H Est GFR ( Amer) 47 L Est GFR (Non-Af Amer) 39 L Glucose 185 H Calcium 7.1 L Phosphorus 3.0 Total Bilirubin 0.2 AST 28 ALT 37 Alkaline Phosphatase 97 Total Protein 3.4 L Albumin 1.5 L Prealbumin 6.6 L Triglycerides 93 12/28/16 08:15 WBC RBC Hgb Hct MCV MCH MCHC RDW Plt Count Seg Neutrophils % Lymphocytes % Monocytes % Eosinophils % Basophils % Absolute Neutrophils Absolute Lymphocytes Absolute Monocytes Absolute Eosinophils Absolute Basophils Carbonic Acid 1.18 HCO3/H2CO3 Ratio 19:1 ABG pH 7.39 ABG pCO2 39.3 ABG pO2 102.1 H ABG HCO3 23.2 ABG O2 Saturation 97.6 ABG Base Excess -1.6 FiO2 40% Sodium Potassium Chloride Carbon Dioxide Anion Gap BUN Creatinine Est GFR ( Amer) Est GFR (Non-Af Amer) Glucose Calcium Phosphorus Total Bilirubin AST ALT Alkaline Phosphatase Total Protein Albumin Prealbumin Triglycerides 12/26/16 10:00 Tracheal Aspirate Gram Stain - Final 12/26/16 10:00 Tracheal Aspirate Sputum Culture - Final Enterobacter Cloacae Normal Elise Absent 12/25/16 06:35 Tracheal Aspirate Gram Stain - Final 12/25/16 06:35 Tracheal Aspirate Sputum Culture - Final Enterobacter Cloacae Normal Elise Absent 12/25/16 08:10 Catheterized Urine Urine Culture - Final NO GROWTH 2 DAYS 12/24/16 12/24/16 12/24/16 16:50 18:10 21:50 Creatine Kinase 29 L 72 CK-MB (CK-2) Troponin I 0.036 12/24/16 12/25/16 12/25/16 21:50 00:35 00:35 Creatine Kinase 66 CK-MB (CK-2) Troponin I 0.038 0.044 12/25/16 12/25/16 21:50 21:50 Creatine Kinase 26 L CK-MB (CK-2) 0.59 Troponin I 0.033 Impressions: Chest/Abdomen CTA 12/24/16 00:00 IMPRESSION: 1. NORMAL CTA OF THE CHEST. NO PULMONARY EMBOLI. 2. MODERATE BILATERAL PLEURAL EFFUSIONS. DENSE CONSOLIDATION IN THE LOWER LOBES DUE TO ATELECTASIS. CANNOT EXCLUDE PNEUMONIA. 3. FINDINGS IN THE UPPER ABDOMEN DESCRIBED. POSTOPERATIVE TINY BUBBLES OF FREE AIR. DISTENDED STOMACH AND VISUALIZED SMALL BOWEL. KUB X-Ray 12/24/16 00:00 IMPRESSION: DIFFUSE SMALL BOWEL DILATION. MAY BE DUE TO POSTOPERATIVE ILEUS ALTHOUGH OBSTRUCTION CANNOT BE EXCLUDED. Abdomen/Pelvis CT 12/25/16 00:00 IMPRESSION: 1. SURGICAL CHANGES DESCRIBED. MODERATE DILATION OF THE STOMACH AND MAJORITY OF THE SMALL BOWEL. THERE DOES APPEAR TO BE A TRANSITION IN THE DISTAL SMALL BOWEL BEFORE THE ILEOSTOMY. THIS COULD BE DUE TO ASYMMETRIC POSTOPERATIVE ILEUS. PARTIAL SMALL BOWEL OBSTRUCTION COULD BE PRESENT ALTHOUGH UNUSUAL SO SOON AFTER SURGERY. MODERATE FREE FLUID WELL POSTOPERATIVE FREE AIR. 2. BILATERAL LOWER LOBE CONSOLIDATIONS WITH SMALL -MODERATE PLEURAL EFFUSIONS. 3. OTHER STABLE INCIDENTAL FINDINGS ABOVE. Chest X-Ray 12/27/16 06:00 IMPRESSION: GENERALLY IMPROVED AERATION. MILD BASILAR ATELECTASIS. OTHERWISE NO CHANGE. Assessment & Plan - Diagnosis (1) Acute hypoxemic respiratory failure Is this a current diagnosis for this admission?: YesPlan: Patient currently intubated/ sedated.Failed weaning. (2) Acute renal failure Qualifiers: Acute renal failure type: unspecified Qualified Code(s): N17.9 - Acute kidney failure, unspecified Is this a current diagnosis for this admission?: YesPlan: Secondary to ATN from septic shock. Stable. He is nonoliguric. No indications for renal replacements. (3) Adynamic ileus Is this a current diagnosis for this admission?: YesPlan: Showing signs of recovery with more active bowel sounds. Tolerating tube feeds. Abdomen soft and nontender. (4) Aspiration pneumonia Qualifiers: Aspiration pneumonia type: unspecified Laterality: bilateral Lung location: lower lobe of lung Qualified Code(s): J69.0 - Pneumonitis due to inhalation of food and vomit Is this a current diagnosis for this admission?: YesPlan: On antibiotics to cover Enterobacter which is growing from his sputum. (5) Hypotension Qualifiers: Hypotension type: unspecified hypotension type Qualified Code(s): I95.9 - Hypotension, unspecified Is this a current diagnosis for this admission?: Yes (6) Septic shock Is this a current diagnosis for this admission?: YesPlan: Resolved. (7) Sigmoid volvulus Is this a current diagnosis for this admission?: YesPlan: With toxic megacolon which led to his bowel obstruction and need for immediate surgical intervention. (8) Toxic megacolon Is this a current diagnosis for this admission?: Yes
[2016-12-28] MEDS: AMINO ACIDS 5%/D25W 1,000 ML IV PRN (12:20)
--- NOTE | 2016-12-28 13:07 | RADIOLOGY REPORT (SQ) ---
EXAM DESCRIPTION: CT CHEST WITHOUT COMPLETED DATE/TIME: 12/28/2016 12:52 pm REASON FOR STUDY: diaphragmatic spasms K56.2 VOLVULUS COMPARISON: Portable chest dated 12/26/2016 and CTA of the chest dated 12/24/2016 TECHNIQUE: CT scan performed of the chest without intravenous contrast. Images reviewed with lung, soft tissue and bone windows. Reconstructed coronal and sagittal MPR images reviewed. All images st ored on PACS. All CT scanners at this facility use dose modulation, iterative reconstruction, and/or weight based d osing when appropriate to reduce radiation dose to as low as reasonably achievable (ALARA). [facility]: Dose Right [facility]: CareDose [facility]: Dose Right [facility]: Teradose 4D [facility]: [employer] RADIATION DOSE: Up-to-date CT equipment and radiation dose reduction techniques were employed. CTDIv ol: 11.1 mGy. DLP: 400 mGy-cm. mGy. LIMITATIONS: No technical limitations. FINDINGS: LUNGS AND PLEURA: Small bilateral pleural effusions are again identified. The previously described associated airspace consolidation most consistent with atelectatic changes appears improved . There has been interval development of fairly diffuse patchy ground-glass opacities which are slig htly more pronounced in the right lung as compared to the left. These could represent areas of pulmo nary edema or developing infiltrates. HILAR AND MEDIASTINAL STRUCTURES: No identified masses or abnormal nodes. No obvious aneurysm. HEART AND VASCULAR STRUCTURES: No aneurysm. No pericardial effusion. UPPER ABDOMEN: There has been interval decompression of the stomach status post placement of an NG tu be. Perihepatic and perisplenic ascitic fluid is identified. . THYROID AND OTHER SOFT TISSUES: No masses. No adenopathy. BONES: No significant finding. HARDWARE: Central line is identified with its tip at the level of the superior vena cava. Endotrache al tube is identified within the trachea. NG tube is seen in course to the abdomen with its tip at t he level of the mid stomach. OTHER: No other significant findings. IMPRESSION: Small bilateral pleural effusions are again identified. The previously described associ ated airspace consolidation most consistent with atelectatic changes appears improved. There has bee n interval development of fairly diffuse patchy ground-glass opacities which are slightly more pronou nced in the right lung as compared to the left. These could represent areas of pulmonary edema or de veloping infiltrates. Other findings as noted above TECHNICAL DOCUMENTATION: JOB ID: [id number] Quality ID # [id number]: Final reports with documentation of one or more dose reduction techniques (e.g., Au tomated exposure control, adjustment of the mA and/or kV according to patient size, use of iterative reconstruction technique) 2010 [employer]- All Rights Reserved
[2016-12-28] MEDS: ACETAMINOPHEN SOLN 325 MG/10.15 ML UDCUP NG PRN (14:04)
[2016-12-28] MEDS ORDERED: ONDANSETRON HCL INJ/PF 4 MG/2 ML SDV ONE (15:21)
[2016-12-28] MEDS ORDERED: NALOXONE HCL INJ/PF 0.4 MG/1 ML SDV ONE (15:22)
[2016-12-28] MEDS ORDERED: MIDAZOLAM 2 MG/2 ML INJ ONE (15:22)
[2016-12-28] MEDS ORDERED: GLYCOPYRROLATE INJ 0.4 MG/2 ML VIAL ONE (15:22)
[2016-12-28] MEDS ORDERED: EPINEPHRINE INJ 1 MG/10 ML DISP.SYRIN ONE (15:23)
[2016-12-28] MEDS ORDERED: FLUMAZENIL INJ 0.5 MG/5 ML VIAL IV ONE (15:23)
[2016-12-28] MEDS ORDERED: GLUCAGON,HUMAN RECOMB 1 MG INJ ONE (15:23)
[2016-12-28] MEDS ORDERED: FENTANYL CITRATE INJ/PF 100 MCG/2 ML AMPUL ONE (15:23)
[2016-12-28] MEDS ORDERED: PHENYLEPHRINE HCL INJ/PF 10 MG/1 ML SDV ONE (16:03)
[2016-12-28] MEDS: DEXTROSE 5%-WATER 250 ML with PHENYLEPHRINE HCL 40 MG IV PRN ×2 (16:05)
--- NOTE | 2016-12-28 17:29 | OPERATIVE REPORT E ---
Operative Report NAME: GUSTAVO HEARN : 1935 AGE: 81Y DATE OF SURGERY: 12/28/2016 ROOM: 612 PREOPERATIVE DIAGNOSIS: Recurrent hiccuping, status post aspiration pneumonia. POSTOPERATIVE DIAGNOSES: 1. Recurrent hiccuping, status post aspiration pneumonia. 2. Diffuse distal esophagitis. 3. Diffuse gastritis. 4. No evidence of gastric outlet obstruction. OPERATION: 1. Esophagogastroduodenoscopy. 2. Distal esophageal and gastric cold forceps biopsies SURGEON: JUAN A CUEVA M.D. ANESTHESIA: IV sedation. COMPLICATIONS: None. ESTIMATED BLOOD LOSS: Scant. DRAINS: None. TISSUE REMOVED OR ALTERED: Mucosal biopsy. DESCRIPTION OF PROCEDURE: After informed consent was obtained from the patient's , propofol intravenous sedation was induced. The patient was on the ventilator. The 16-Portuguese nasogastric tube was removed. An appropriate timeout were conducted. The flexible adult gastroscope was advanced through the hypopharynx, down the esophagus, through the stomach and into the duodenum. The patient tolerated this very well. The first and second portions of the duodenum were normal. The scope was brought back through the pylorus, which was mildly erythematous but no evidence of gastric outlet obstruction, tumor or ulcer. The stomach was significant for diffuse gastritis and a small gastric biopsy was obtained from the antrum. There were some retained gastric content in the gastric cardia, which was aspirated. Again, no evidence of significant residual fluid in the stomach. The stomach was decompressed. The scope was brought back through the GE junction. The Z-line was at approximately 41 cm from the incisor. There was no evidence of distal esophageal stricture, tumor or mass. The distal third of the esophagus was circumferentially erythematous and a biopsy was taken for histologic analysis. The first and second thirds of the esophagus were unremarkable. Photos were taken. The scope was withdrawn from patient's oropharynx. She tolerated the procedure well. A replacement 18-Portuguese nasogastric tube was inserted through the right naris. The patient tolerated the procedure well. DICTATING PHYSICIAN: JUAN A CUEVA M.D. [id number] PHY#: [id number] ID: [id number] JOB#: [id number] ACCT: [id number] cc:JUAN A CUEVA M.D. > MTDD
--- NOTE | 2016-12-28 19:15 | RADIOLOGY REPORT (SQ) ---
EXAM DESCRIPTION: KUB/ABDOMEN (SINGLE VIEW) COMPLETED DATE/TIME: 12/28/2016 7:01 pm REASON FOR STUDY: NG tube placement K56.2 VOLVULUS COMPARISON: 12/24/2016 NUMBER OF VIEWS: One view. TECHNIQUE: Supine radiographic image of the abdomen acquired. LIMITATIONS: None. FINDINGS: BOWEL GAS PATTERN: Multiple dilated loops of small bowel noted throughout the abdomen but have decreased in comparison to the prior study. CALCIFICATIONS: No suspicious calcifications. SOFT TISSUES: No gross mass or suggestion of organomegaly. HARDWARE: Nasogastric tube noted with tip in side hole projecting over in the inflated stomach. Surg ical clemente partially visualized in the midline. BONES: No acute fracture. No worrisome bone lesions. OTHER: No other significant finding. IMPRESSION: Nasogastric tube projects over the lumen of the stomach. Multiple dilated loops of smal l bowel noted throughout the abdomen have decreased in comparison the prior study. TECHNICAL DOCUMENTATION: JOB ID: [id number] [employer]- All Rights Reserved
[2016-12-29] MEDS: PROPOFOL 100 ML IV PRN ×3 (01:29→18:04)
[2016-12-29 03:43] LABS: HEMOGLOBIN 8.8 g/dL (13.5-17.0); HGB HCT DIFFERENCE -0.6; MEAN CORPUSCULAR HEMOGLOBIN 30.7 pg (27.0-33.4); MEAN CORPUSCULAR HGB CONC 32.7 g/dL (32.0-36.0); MEAN CORPUSCULAR VOLUME 94 fl (80-97); RED BLOOD COUNT 2.88 10^6/uL (4.35-5.55); RED CELL DISTRIBUTION WIDTH 14.1 % (11.5-14.0); WHITE BLOOD COUNT 14.7 10^3/uL (4.0-10.5)
[2016-12-29] MEDS: LOPERAMIDE HCL 2 MG CAPSULE PO SCH ×3 (05:18→21:05)
[2016-12-29] MEDS: PIPERACILLIN SODIUM/TAZOBACTAM 3.375 GM in NORMAL SALINE 100 ML IV SCH (05:19)
[2016-12-29 06:27] LABS: ALANINE AMINOTRANSFERASE 41 U/L (21-72); ALBUMIN 1.6 g/dL (3.5-5.0); ALKALINE PHOSPHATASE 95 U/L (38-126); ANION GAP 7 (5-19); ASPARTATE AMINO TRANSFERASE 33 U/L (17-59); BILIRUBIN,DIRECT 0.3 mg/dL (0.0-0.4); BILIRUBIN,TOTAL 0.3 mg/dL (0.2-1.3); BLOOD UREA NITROGEN 39 mg/dL (7-20); CALCIUM 7.3 mg/dL (8.4-10.2); CARBON DIOXIDE 24 mmol/L (22-30); CHLORIDE 112 mmol/L (98-107); CREATININE RESULT 1.59 mg/dL (0.52-1.25); GLUCOSE 169 mg/dL (75-110); MAGNESIUM 1.9 mg/dL (1.6-2.3); PHOSPHORUS 2.8 mg/dL (2.5-4.5); POTASSIUM 3.4 mmol/L (3.6-5.0); PREALBUMIN 7.8 mg/dL (17.6-36.0); SODIUM 142.6 mmol/L (137-145); TOTAL PROTEIN 3.7 g/dL (6.3-8.2)
--- NOTE | 2016-12-29 06:35 | RADIOLOGY REPORT (SQ) ---
EXAM DESCRIPTION: CHEST SINGLE VIEW COMPLETED DATE/TIME: 12/29/2016 6:25 am REASON FOR STUDY: ACUTE RESP FAILURE COMPARISON: 12/27/2016. EXAM PARAMETERS: NUMBER OF VIEWS: One view. TECHNIQUE: Single frontal radiographic view of the chest acquired. RADIATION DOSE: NA LIMITATIONS: None. FINDINGS: LUNGS AND PLEURA: Mild basilar atelectasis. Possible small left pleural effusion. No pne umothorax. MEDIASTINUM AND HILAR STRUCTURES: No masses. Contour normal. HEART AND VASCULAR STRUCTURES: Heart normal in size. Normal vasculature. BONES: No acute findings. HARDWARE: Endotracheal tube, nasogastric tube, and central line unchanged. OTHER: No other significant finding. IMPRESSION: NO CHANGE IN APPEARANCE OF THE CHEST. TECHNICAL DOCUMENTATION: JOB ID: [id number]
[2016-12-29 06:59] LABS: BAND NEUTROPHILS % (MANUAL) 1 % (3-5); BASOPHILS % (MANUAL) 1 % (0-2); EOSINOPHILS % (MANUAL) 2 % (0-6); LYMPHOCYTES % (MANUAL) 7 % (13-45); RBC MORPHOLOGY COMMENT NORMO-CYTIC/CHROMIC; TOTAL CELLS COUNTED 100; TOXIC GRANULATION 1+
[2016-12-29 08:14] LABS: ARTERIAL BLOOD BASE EXCESS 2.1 mmol/L; ARTERIAL BLOOD O2 SATURATION 98.4 % (94-98)
[2016-12-29] MEDS: VANCOMYCIN HCL 1,250 MG in DEXTROSE 5%-WATER 250 ML IV SCH (08:39)
[2016-12-29] MEDS: ENOXAPARIN SODIUM INJ 40 MG/0.4 ML DISP.SYRIN SUBCUT SCH (08:40)
[2016-12-29] MEDS: AMINO ACIDS 5%/D25W 1,000 ML IV PRN (08:43)
[2016-12-29] MEDS: TOBRAMYCIN SULFATE NEB 40 MG/ML 30 ML NEB SCH ×2 (08:52→20:58)
[2016-12-29] MEDS: LEVALBUTEROL HCL NEB 1.25 MG/3 ML AMPUL NEB PRN (08:52)
--- NOTE | 2016-12-29 10:24 | PDOC PROGRESS REPORT ---
Subjective Progress Note for:: 12/29/16 Subjective:: The patient is on the ventilator Physical Exam Vital Signs: Temp Pulse Resp BP Pulse Ox 100.2 F 72 15 126/53 H 99 12/28/16 19:52 12/29/16 08:52 12/29/16 08:52 12/29/16 06:03 12/29/16 08:52 Pulse Oximeter Continuous Start: 12/24/16 22: 07 Freq: Status: Complete Document 12/24/16 [facility]:00 [facility] (Rec: 12/24/16 22:09 [facility] [email or web address]) Pulse Oximetry Assessment Oxygen Saturation (92-100) 100 Oxygen Flow Rate (L/min) 12 Oxygen Delivery Method Non-Rebreather Fraction of Inspired Oxygen (FIO2) 100 Equipment Usage Initial Set Up Continuous Pulse Oximeter 24 Hour Charge Charge Now Continuous SpO2 Machine # [id number] Intake & Output 12/28/16 12/29/16 12/30/16 06:59 06:59 06:59 Intake Total 3565 3201 Output Total 3850 3930 350 Balance -285 -729 -350 Weight 91.4 kg 88.4 kg General appearance: PRESENT: no acute distress Eye exam: PRESENT: conjunctiva pink. ABSENT: scleral icterus Mouth exam: PRESENT: moist, tongue midline Neck exam: ABSENT: JVD Respiratory exam: PRESENT: clear to auscultation annabel. ABSENT: rales, rhonchi, wheezes Cardiovascular exam: PRESENT: RRR, systolic murmur - 3/6. 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 ABSENT: distended, guarding, mass, organolmegaly, rebound, tenderness Extremities exam: ABSENT: calf tenderness, clubbing, pedal edema Neurological exam: PRESENT: other - Patient is sedated this morning Psychiatric exam: PRESENT: flat affect Skin exam: PRESENT: dry, intact, warm. ABSENT: cyanosis, rash Results Laboratory Results: 12/29/16 03:25 12/29/16 03:25 12/28/16 12/28/16 12/29/16 08:15 16:40 03:25 WBC 14.7 H RBC 2.88 L Hgb 8.8 L Hct 27.0 L MCV 94 MCH 30.7 MCHC 32.7 RDW 14.1 H Plt Count 210 Seg Neutrophils % Not Reportable Lymphocytes % Not Reportable Monocytes % Not Reportable Eosinophils % Not Reportable Basophils % Not Reportable Absolute Neutrophils Not Reportable Absolute Lymphocytes Not Reportable Absolute Monocytes Not Reportable Absolute Eosinophils Not Reportable Absolute Basophils Not Reportable Carbonic Acid HCO3/H2CO3 Ratio ABG pH ABG pCO2 ABG pO2 ABG HCO3 ABG O2 Saturation ABG Base Excess FiO2 Sodium Potassium 3.6 Chloride Carbon Dioxide Anion Gap BUN Creatinine Est GFR ( Amer) Est GFR (Non-Af Amer) Glucose Calcium Phosphorus Magnesium 2.0 Total Bilirubin AST ALT Alkaline Phosphatase Total Protein Albumin Prealbumin 12/29/16 12/29/16 03:25 08:02 WBC RBC Hgb Hct MCV MCH MCHC RDW Plt Count Seg Neutrophils % Lymphocytes % Monocytes % Eosinophils % Basophils % Absolute Neutrophils Absolute Lymphocytes Absolute Monocytes Absolute Eosinophils Absolute Basophils Carbonic Acid 1.10 HCO3/H2CO3 Ratio 23:1 ABG pH 7.47 H ABG pCO2 36.4 ABG pO2 112.6 H ABG HCO3 25.8 ABG O2 Saturation 98.4 H ABG Base Excess 2.1 FiO2 40% Sodium 142.6 Potassium 3.4 L Chloride 112 H Carbon Dioxide 24 Anion Gap 7 BUN 39 H Creatinine 1.59 H Est GFR ( Amer) 51 L Est GFR (Non-Af Amer) 42 L Glucose 169 H Calcium 7.3 L Phosphorus 2.8 Magnesium 1.9 Total Bilirubin 0.3 AST 33 ALT 41 Alkaline Phosphatase 95 Total Protein 3.7 L Albumin 1.6 L Prealbumin 7.8 L 12/24/16 12/24/16 12/24/16 16:50 18:10 21:50 Creatine Kinase 29 L 72 CK-MB (CK-2) Troponin I 0.036 12/24/16 12/25/16 12/25/16 21:50 00:35 00:35 Creatine Kinase 66 CK-MB (CK-2) Troponin I 0.038 0.044 12/25/16 12/25/16 21:50 21:50 Creatine Kinase 26 L CK-MB (CK-2) 0.59 Troponin I 0.033 Impressions: Chest/Abdomen CTA 12/24/16 00:00 IMPRESSION: 1. NORMAL CTA OF THE CHEST. NO PULMONARY EMBOLI. 2. MODERATE BILATERAL PLEURAL EFFUSIONS. DENSE CONSOLIDATION IN THE LOWER LOBES DUE TO ATELECTASIS. CANNOT EXCLUDE PNEUMONIA. 3. FINDINGS IN THE UPPER ABDOMEN DESCRIBED. POSTOPERATIVE TINY BUBBLES OF FREE AIR. DISTENDED STOMACH AND VISUALIZED SMALL BOWEL. Abdomen/Pelvis CT 12/25/16 00:00 IMPRESSION: 1. SURGICAL CHANGES DESCRIBED. MODERATE DILATION OF THE STOMACH AND MAJORITY OF THE SMALL BOWEL. THERE DOES APPEAR TO BE A TRANSITION IN THE DISTAL SMALL BOWEL BEFORE THE ILEOSTOMY. THIS COULD BE DUE TO ASYMMETRIC POSTOPERATIVE ILEUS. PARTIAL SMALL BOWEL OBSTRUCTION COULD BE PRESENT ALTHOUGH UNUSUAL SO SOON AFTER SURGERY. MODERATE FREE FLUID WELL POSTOPERATIVE FREE AIR. 2. BILATERAL LOWER LOBE CONSOLIDATIONS WITH SMALL -MODERATE PLEURAL EFFUSIONS. 3. OTHER STABLE INCIDENTAL FINDINGS ABOVE. Chest CT 12/28/16 00:00 IMPRESSION: Small bilateral pleural effusions are again identified. The previously described associated airspace consolidation most consistent with atelectatic changes appears improved. There has been interval development of fairly diffuse patchy ground-glass opacities which are slightly more pronounced in the right lung as compared to the left. These could represent areas of pulmonary edema or developing infiltrates. Other findings as noted above KUB X-Ray 12/28/16 00:00 IMPRESSION: Nasogastric tube projects over the lumen of the stomach. Multiple dilated loops of small bowel noted throughout the abdomen have decreased in comparison the prior study. Chest X-Ray 12/29/16 06:00 IMPRESSION: NO CHANGE IN APPEARANCE OF THE CHEST. Assessment & Plan - Diagnosis (1) Acute hypoxemic respiratory failure Is this a current diagnosis for this admission?: YesPlan: Secondary to aspiration. Patient currently on the ventilator. This is being managed by pulmonary medicine (2) Aspiration pneumonia Qualifiers: Aspiration pneumonia type: unspecified Laterality: bilateral Lung location: lower lobe of lung Qualified Code(s): J69.0 - Pneumonitis due to inhalation of food and vomit Is this a current diagnosis for this admission?: YesPlan: We will continue with vancomycin, tobramycin. Nephrology has recommended that we try to decrease the amount of volume that he is receiving. Because of this we will DC the Zosyn and switch to Invanz. (3) Sigmoid volvulus Is this a current diagnosis for this admission?: YesPlan: Has had surgical repair (4) Toxic megacolon Is this a current diagnosis for this admission?: YesPlan: Has had surgical repair. 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 followed by nephrology. Nephrology recommends that we decrease the amount of volume that he is receiving and has recommended a decrease in the TPN. Because of the need to decrease the volume the patient is receiving we will change the Zosyn to Invanz. (6) BPH (benign prostatic hyperplasia) Qualifiers: Lower urinary tract symptom presence: unspecified whether lower urinary tract symptoms present Qualified Code(s): N40.0 - Benign prostatic hyperplasia without lower urinary tract symptoms Is this a current diagnosis for this admission?: Yes (7) Essential hypertension Is this a current diagnosis for this admission?: Yes (8) Hyperlipidemia, acquired Is this a current diagnosis for this admission?: Yes (9) Adynamic ileus Is this a current diagnosis for this admission?: YesPlan: Has been getting TPN. - Time Time Spent with patient: 15-24 minutes - Inpatient Certification Medical Necessity: Need Close Monitoring Due to Risk of Patient Decompensation, Need for IV Antibiotics
[2016-12-29] MEDS ORDERED: FUROSEMIDE INJ/PF 40 MG/4 ML SDV IV ONE (10:30)
[2016-12-29] MEDS: FUROSEMIDE INJ/PF 20 MG/2 ML SDV IV SCH ×3 (10:52→21:05)
--- NOTE | 2016-12-29 11:24 | PDOC PROGRESS REPORT ---
Subjective Progress Note for:: 12/29/16 Subjective:: Intubated. Arousable. No apparent distress. Physical Exam Vital Signs: Temp Pulse Resp BP Pulse Ox 100.2 F 72 13 122/51 L 98 12/28/16 19:52 12/29/16 08:52 12/29/16 11:00 12/29/16 10:49 12/29/16 11:00 Pulse Oximeter Continuous Start: 12/24/16 22: 07 Freq: Status: Complete Document 12/24/16 20:00 [facility] (Rec: 12/24/16 22:09 [facility] [email or web address]) Pulse Oximetry Assessment Oxygen Saturation (92-100) 100 Oxygen Flow Rate (L/min) 12 Oxygen Delivery Method Non-Rebreather Fraction of Inspired Oxygen (FIO2) 100 Equipment Usage Initial Set Up Continuous Pulse Oximeter 24 Hour Charge Charge Now Continuous SpO2 Machine # [id number] Intake & Output 12/28/16 12/29/16 12/30/16 06:59 06:59 06:59 Intake Total 3565 3201 Output Total 3851 9840 650 Balance -285 -729 -650 Weight 91.4 kg 88.4 kg General appearance: PRESENT: no acute distress Respiratory exam: PRESENT: clear to auscultation annabel Cardiovascular exam: PRESENT: RRR GI/Abdominal exam: PRESENT: other - Soft, nondistended, no apparent tenderness. Ostomy functioning well. Results Laboratory Results: 12/29/16 03:25 12/29/16 03:25 12/28/16 12/28/16 12/29/16 08:15 16:40 03:25 WBC 14.7 H RBC 2.88 L Hgb 8.8 L Hct 27.0 L MCV 94 MCH 30.7 MCHC 32.7 RDW 14.1 H Plt Count 210 Seg Neutrophils % Not Reportable Lymphocytes % Not Reportable Monocytes % Not Reportable Eosinophils % Not Reportable Basophils % Not Reportable Absolute Neutrophils Not Reportable Absolute Lymphocytes Not Reportable Absolute Monocytes Not Reportable Absolute Eosinophils Not Reportable Absolute Basophils Not Reportable Carbonic Acid HCO3/H2CO3 Ratio ABG pH ABG pCO2 ABG pO2 ABG HCO3 ABG O2 Saturation ABG Base Excess FiO2 Sodium Potassium 3.6 Chloride Carbon Dioxide Anion Gap BUN Creatinine Est GFR ( Amer) Est GFR (Non-Af Amer) Glucose Calcium Phosphorus Magnesium 2.0 Total Bilirubin AST ALT Alkaline Phosphatase Total Protein Albumin Prealbumin 12/29/16 12/29/16 03:25 08:02 WBC RBC Hgb Hct MCV MCH MCHC RDW Plt Count Seg Neutrophils % Lymphocytes % Monocytes % Eosinophils % Basophils % Absolute Neutrophils Absolute Lymphocytes Absolute Monocytes Absolute Eosinophils Absolute Basophils Carbonic Acid 1.10 HCO3/H2CO3 Ratio 23:1 ABG pH 7.47 H ABG pCO2 36.4 ABG pO2 112.6 H ABG HCO3 25.8 ABG O2 Saturation 98.4 H ABG Base Excess 2.1 FiO2 40% Sodium 142.6 Potassium 3.4 L Chloride 112 H Carbon Dioxide 24 Anion Gap 7 BUN 39 H Creatinine 1.59 H Est GFR ( Amer) 51 L Est GFR (Non-Af Amer) 42 L Glucose 169 H Calcium 7.3 L Phosphorus 2.8 Magnesium 1.9 Total Bilirubin 0.3 AST 33 ALT 41 Alkaline Phosphatase 95 Total Protein 3.7 L Albumin 1.6 L Prealbumin 7.8 L 12/27/16 08:10 Catheterized Urine Urine Culture - Final NO GROWTH 2 DAYS 12/24/16 12/24/16 12/24/16 16:50 18:10 21:50 Creatine Kinase 29 L 72 CK-MB (CK-2) Troponin I 0.036 12/24/16 12/25/16 12/25/16 21:50 00:35 00:35 Creatine Kinase 66 CK-MB (CK-2) Troponin I 0.038 0.044 12/25/16 12/25/16 21:50 21:50 Creatine Kinase 26 L CK-MB (CK-2) 0.59 Troponin I 0.033 Impressions: Chest/Abdomen CTA 12/24/16 00:00 IMPRESSION: 1. NORMAL CTA OF THE CHEST. NO PULMONARY EMBOLI. 2. MODERATE BILATERAL PLEURAL EFFUSIONS. DENSE CONSOLIDATION IN THE LOWER LOBES DUE TO ATELECTASIS. CANNOT EXCLUDE PNEUMONIA. 3. FINDINGS IN THE UPPER ABDOMEN DESCRIBED. POSTOPERATIVE TINY BUBBLES OF FREE AIR. DISTENDED STOMACH AND VISUALIZED SMALL BOWEL. Abdomen/Pelvis CT 12/25/16 00:00 IMPRESSION: 1. SURGICAL CHANGES DESCRIBED. MODERATE DILATION OF THE STOMACH AND MAJORITY OF THE SMALL BOWEL. THERE DOES APPEAR TO BE A TRANSITION IN THE DISTAL SMALL BOWEL BEFORE THE ILEOSTOMY. THIS COULD BE DUE TO ASYMMETRIC POSTOPERATIVE ILEUS. PARTIAL SMALL BOWEL OBSTRUCTION COULD BE PRESENT ALTHOUGH UNUSUAL SO SOON AFTER SURGERY. MODERATE FREE FLUID WELL POSTOPERATIVE FREE AIR. 2. BILATERAL LOWER LOBE CONSOLIDATIONS WITH SMALL -MODERATE PLEURAL EFFUSIONS. 3. OTHER STABLE INCIDENTAL FINDINGS ABOVE. Chest CT 12/28/16 00:00 IMPRESSION: Small bilateral pleural effusions are again identified. The previously described associated airspace consolidation most consistent with atelectatic changes appears improved. There has been interval development of fairly diffuse patchy ground-glass opacities which are slightly more pronounced in the right lung as compared to the left. These could represent areas of pulmonary edema or developing infiltrates. Other findings as noted above KUB X-Ray 12/28/16 00:00 IMPRESSION: Nasogastric tube projects over the lumen of the stomach. Multiple dilated loops of small bowel noted throughout the abdomen have decreased in comparison the prior study. Chest X-Ray 12/29/16 06:00 IMPRESSION: NO CHANGE IN APPEARANCE OF THE CHEST. Assessment & Plan - Diagnosis (1) Toxic megacolon Is this a current diagnosis for this admission?: Yes (2) Aspiration pneumonia Qualifiers: Aspiration pneumonia type: unspecified Laterality: bilateral Lung location: lower lobe of lung Qualified Code(s): J69.0 - Pneumonitis due to inhalation of food and vomit Is this a current diagnosis for this admission?: YesPlan: Patient making good progress. On pressure support trials today. Possible extubation later today or tomorrow. Would hold off any type of enteral feeding until post extubation.
[2016-12-29] MEDS: ERTAPENEM SODIUM 1 GM in NORMAL SALINE 50 ML IV SCH (11:38)
[2016-12-29] MEDS: VANCOMYCIN HCL 1,750 MG in DEXTROSE 5%-WATER 250 ML IV SCH (21:06)
[2016-12-29] MEDS ORDERED: VANCOMYCIN HCL 750 MG in DEXTROSE 5%-WATER 250 ML IV SCH (22:00)
[2016-12-30] MEDS: INSULIN REG, HUMAN 100 UNIT/ML 3 ML VIAL (PYX) SUBCUT PRN (00:23)
[2016-12-30] MEDS: PROPOFOL 100 ML IV PRN ×3 (01:20→22:11)
[2016-12-30 04:48] LABS: ARTERIAL BLOOD O2 SATURATION 98.6 % (94-98)
[2016-12-30 04:51] LABS: ABSOLUTE EOSINOPHILS # (AUTO) 0.2 10^3/uL (0.0-0.6); ABSOLUTE LYMPHOCYTES (AUTO) 0.6 10^3/uL (0.5-4.7); ABSOLUTE MONOCYTES (AUTO) 0.7 10^3/uL (0.1-1.4); ABSOLUTE NEUT (AUTO) 9.2 10^3/uL (1.7-8.2); BASOPHILS % (AUTO) 0.4 % (0-2); EOSINOPHILS % (AUTO) 1.8 % (0-6); HEMATOCRIT 26.9 % (37.9-51.0); HGB HCT DIFFERENCE 0.1; LYMPHOCYTES % (AUTO) 6.1 % (13-45); MEAN CORPUSCULAR HEMOGLOBIN 31.3 pg (27.0-33.4); MEAN CORPUSCULAR HGB CONC 33.6 g/dL (32.0-36.0); MEAN CORPUSCULAR VOLUME 93 fl (80-97); MONOCYTES % (AUTO) 6.3 % (3-13); RED BLOOD COUNT 2.88 10^6/uL (4.35-5.55); RED CELL DISTRIBUTION WIDTH 14.1 % (11.5-14.0); SEGMENTED NEUTROPHILS % (AUTO) 85.4 % (42-78); WHITE BLOOD COUNT 10.7 10^3/uL (4.0-10.5)
[2016-12-30] MEDS: LOPERAMIDE HCL 2 MG CAPSULE PO SCH ×3 (05:05→22:11)
[2016-12-30] MEDS: FUROSEMIDE INJ/PF 20 MG/2 ML SDV IV SCH ×3 (05:05→22:11)
[2016-12-30] MEDS: AMINO ACIDS 5%/D25W 1,000 ML IV PRN (05:06)
[2016-12-30 05:17] LABS: ANION GAP 5 (5-19); BLOOD UREA NITROGEN 38 mg/dL (7-20); CALCIUM 7.5 mg/dL (8.4-10.2); CARBON DIOXIDE 29 mmol/L (22-30); CHLORIDE 110 mmol/L (98-107); CREATININE RESULT 1.61 mg/dL (0.52-1.25); GLUCOSE 152 mg/dL (75-110); POTASSIUM 3.3 mmol/L (3.6-5.0); SODIUM 144.3 mmol/L (137-145)
[2016-12-30] MEDS ORDERED: MAGNESIUM SULFATE/D5W 1 GM/100 ML RTUPB IV ONE (06:13)
[2016-12-30] MEDS ORDERED: POTASSI CL 20 MEQ/50 ML RIDER 20 MEQ/50 ML RTUPB IV ONE (06:13)
[2016-12-30] MEDS: POTASSI CL 20 MEQ/50 ML RIDER 20 MEQ/50 ML RTUPB IV SCH ×2 (06:36→08:16)
[2016-12-30] MEDS: MAGNESIUM SULFATE/D5W 1 GM/100 ML RTUPB IV SCH ×2 (06:41→08:15)
--- NOTE | 2016-12-30 07:05 | RADIOLOGY REPORT (SQ) ---
EXAM DESCRIPTION: CHEST SINGLE VIEW COMPLETED DATE/TIME: 12/30/2016 6:54 am REASON FOR STUDY: pna/acute resp failure COMPARISON: 12/29/2016. EXAM PARAMETERS: NUMBER OF VIEWS: One view. TECHNIQUE: Single frontal radiographic view of the chest acquired. RADIATION DOSE: NA LIMITATIONS: None. FINDINGS: LUNGS AND PLEURA: Improved aeration. No infiltrates, masses or pneumothorax. No pleural e ffusion. MEDIASTINUM AND HILAR STRUCTURES: No masses. Contour normal. HEART AND VASCULAR STRUCTURES: Heart normal in size. Normal vasculature. BONES: No acute findings. HARDWARE: Endotracheal tube, nasogastric tube, and central line. OTHER: No other significant finding. IMPRESSION: IMPROVED AERATION. NO ACUTE RADIOGRAPHIC FINDING IN THE CHEST. TECHNICAL DOCUMENTATION: JOB ID: [id number]
[2016-12-30] MEDS: ENOXAPARIN SODIUM INJ 40 MG/0.4 ML DISP.SYRIN SUBCUT SCH (08:18)
[2016-12-30] MEDS: LEVALBUTEROL HCL NEB 1.25 MG/3 ML AMPUL NEB PRN (08:20)
[2016-12-30] MEDS: TOBRAMYCIN SULFATE NEB 40 MG/ML 30 ML NEB SCH ×2 (08:21→20:48)
--- NOTE | 2016-12-30 09:50 | PDOC PROGRESS REPORT ---
Subjective Progress Note for:: 12/30/16 Subjective:: The patient is on the ventilator Physical Exam Vital Signs: Temp Pulse Resp BP Pulse Ox 99.5 F 80 18 127/52 H 99 12/30/16 08:00 12/30/16 08:22 12/30/16 08:22 12/30/16 08:00 12/30/16 08:22 Pulse Oximeter Continuous Start: 12/24/16 22: 07 Freq: Status: Complete Document 12/24/16 20:00 [facility] (Rec: 12/24/16 22:09 [facility] [email or web address]) Pulse Oximetry Assessment Oxygen Saturation (92-100) 100 Oxygen Flow Rate (L/min) 12 Oxygen Delivery Method Non-Rebreather Fraction of Inspired Oxygen (FIO2) 100 Equipment Usage Initial Set Up Continuous Pulse Oximeter 24 Hour Charge Charge Now Continuous SpO2 Machine # [id number] Intake & Output 12/29/16 12/30/16 12/31/16 06:59 06:59 06:59 Intake Total 320 2203 Output Total 3937 4657 1200 Balance -729 -5380 -1200 Weight 88.4 kg 88.3 kg General appearance: PRESENT: no acute distress Eye exam: PRESENT: conjunctiva pink. ABSENT: scleral icterus Ear exam: PRESENT: normal external ear exam Mouth exam: PRESENT: moist, tongue midline Neck exam: ABSENT: JVD Respiratory exam: PRESENT: clear to auscultation annabel. ABSENT: rales, rhonchi, wheezes Cardiovascular exam: PRESENT: RRR, systolic murmur - 3/6 systolic murmur. ABSENT: diastolic murmur, rubs GI/Abdominal exam: PRESENT: normal bowel sounds, soft, other - Ostomy present in the right lower quadrant. ABSENT: distended, guarding, mass, organolmegaly, rebound, tenderness Extremities exam: ABSENT: calf tenderness, clubbing, pedal edema Neurological exam: PRESENT: other - Moving all 4 extremities.. ABSENT: motor sensory deficit Psychiatric exam: PRESENT: flat affect Skin exam: PRESENT: dry, intact, warm. ABSENT: cyanosis, rash Results Laboratory Results: 12/30/16 04:35 12/30/16 04:35 12/30/16 12/30/16 12/30/16 04:35 04:35 04:35 WBC 10.7 H RBC 2.88 L Hgb 9.0 L Hct 26.9 L MCV 93 MCH 31.3 MCHC 33.6 RDW 14.1 H Plt Count 221 Seg Neutrophils % 85.4 H Lymphocytes % 6.1 L Monocytes % 6.3 Eosinophils % 1.8 Basophils % 0.4 Absolute Neutrophils 9.2 H Absolute Lymphocytes 0.6 Absolute Monocytes 0.7 Absolute Eosinophils 0.2 Absolute Basophils 0.0 Carbonic Acid 1.06 HCO3/H2CO3 Ratio 26:1 ABG pH 7.52 H ABG pCO2 35.2 ABG pO2 114.0 H ABG HCO3 28.0 H ABG O2 Saturation 98.6 H ABG Base Excess 5.0 FiO2 30% Sodium 144.3 Potassium 3.3 L Chloride 110 H Carbon Dioxide 29 Anion Gap 5 BUN 38 H Creatinine 1.61 H Est GFR ( Amer) 50 L Est GFR (Non-Af Amer) 41 L Glucose 152 H Calcium 7.5 L Magnesium 12/30/16 04:35 WBC RBC Hgb Hct MCV MCH MCHC RDW Plt Count Seg Neutrophils % Lymphocytes % Monocytes % Eosinophils % Basophils % Absolute Neutrophils Absolute Lymphocytes Absolute Monocytes Absolute Eosinophils Absolute Basophils Carbonic Acid HCO3/H2CO3 Ratio ABG pH ABG pCO2 ABG pO2 ABG HCO3 ABG O2 Saturation ABG Base Excess FiO2 Sodium Potassium Chloride Carbon Dioxide Anion Gap BUN Creatinine Est GFR ( Amer) Est GFR (Non-Af Amer) Glucose Calcium Magnesium 1.7 12/25/16 01:02 Blood Blood Culture - Final NO GROWTH IN 5 DAYS 12/25/16 00:35 Blood Blood Culture - Final NO GROWTH IN 5 DAYS 12/27/16 08:10 Catheterized Urine Urine Culture - Final NO GROWTH 2 DAYS 12/24/16 12/24/16 12/24/16 16:50 18:10 21:50 Creatine Kinase 29 L 72 CK-MB (CK-2) Troponin I 0.036 12/24/16 12/25/16 12/25/16 21:50 00:35 00:35 Creatine Kinase 66 CK-MB (CK-2) Troponin I 0.038 0.044 12/25/16 12/25/16 21:50 21:50 Creatine Kinase 26 L CK-MB (CK-2) 0.59 Troponin I 0.033 Impressions: Chest/Abdomen CTA 12/24/16 00:00 IMPRESSION: 1. NORMAL CTA OF THE CHEST. NO PULMONARY EMBOLI. 2. MODERATE BILATERAL PLEURAL EFFUSIONS. DENSE CONSOLIDATION IN THE LOWER LOBES DUE TO ATELECTASIS. CANNOT EXCLUDE PNEUMONIA. 3. FINDINGS IN THE UPPER ABDOMEN DESCRIBED. POSTOPERATIVE TINY BUBBLES OF FREE AIR. DISTENDED STOMACH AND VISUALIZED SMALL BOWEL. Abdomen/Pelvis CT 12/25/16 00:00 IMPRESSION: 1. SURGICAL CHANGES DESCRIBED. MODERATE DILATION OF THE STOMACH AND MAJORITY OF THE SMALL BOWEL. THERE DOES APPEAR TO BE A TRANSITION IN THE DISTAL SMALL BOWEL BEFORE THE ILEOSTOMY. THIS COULD BE DUE TO ASYMMETRIC POSTOPERATIVE ILEUS. PARTIAL SMALL BOWEL OBSTRUCTION COULD BE PRESENT ALTHOUGH UNUSUAL SO SOON AFTER SURGERY. MODERATE FREE FLUID WELL POSTOPERATIVE FREE AIR. 2. BILATERAL LOWER LOBE CONSOLIDATIONS WITH SMALL -MODERATE PLEURAL EFFUSIONS. 3. OTHER STABLE INCIDENTAL FINDINGS ABOVE. Chest CT 12/28/16 00:00 IMPRESSION: Small bilateral pleural effusions are again identified. The previously described associated airspace consolidation most consistent with atelectatic changes appears improved. There has been interval development of fairly diffuse patchy ground-glass opacities which are slightly more pronounced in the right lung as compared to the left. These could represent areas of pulmonary edema or developing infiltrates. Other findings as noted above KUB X-Ray 12/28/16 00:00 IMPRESSION: Nasogastric tube projects over the lumen of the stomach. Multiple dilated loops of small bowel noted throughout the abdomen have decreased in comparison the prior study. Chest X-Ray 12/30/16 06:00 IMPRESSION: IMPROVED AERATION. NO ACUTE RADIOGRAPHIC FINDING IN THE CHEST. Assessment & Plan - Diagnosis (1) Acute hypoxemic respiratory failure Is this a current diagnosis for this admission?: YesPlan: Secondary to aspiration. Patient currently on the ventilator. This is being managed by pulmonary medicine. patient was put on pressure support and his minute ventilation increased quite a bit. (2) Aspiration pneumonia Qualifiers: Aspiration pneumonia type: unspecified Laterality: bilateral Lung location: lower lobe of lung Qualified Code(s): J69.0 - Pneumonitis due to inhalation of food and vomit Is this a current diagnosis for this admission?: YesPlan: We will continue with Invanz, vancomycin, tobramycin. (3) Sigmoid volvulus Is this a current diagnosis for this admission?: YesPlan: Has had surgical repair (4) Toxic megacolon Is this a current diagnosis for this admission?: YesPlan: Has had surgical repair. 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 followed by nephrology. (6) BPH (benign prostatic hyperplasia) Qualifiers: Lower urinary tract symptom presence: unspecified whether lower urinary tract symptoms present Qualified Code(s): N40.0 - Benign prostatic hyperplasia without lower urinary tract symptoms Is this a current diagnosis for this admission?: Yes (7) Essential hypertension Is this a current diagnosis for this admission?: Yes (8) Hyperlipidemia, acquired Is this a current diagnosis for this admission?: Yes (9) Adynamic ileus Is this a current diagnosis for this admission?: YesPlan: Has been getting TPN. Will discuss with surgery today about restarting tube feeds. High residuals have been a problem previously. - Time Time Spent with patient: 25-34 minutes - Inpatient Certification Medical Necessity: Need Close Monitoring Due to Risk of Patient Decompensation, Need for IV Antibiotics
--- NOTE | 2016-12-30 10:59 | PROGRESS NOTE E ---
Progress Note NAME: GUSTAVO HEARN : 1935 AGE: 81Y DATE: 12/30/2016 ROOM: 612 SUBJECTIVE/OBJECTIVE: At this time, the patient is still intubated and appears that his parameters for extubation is not adequate at this time. His chest x-ray appears to be improving and his white count remained in the low range of 10.7. His temperature, however, is at a T-max of 100.7. He seems to be waking up and abdomen is soft and nontender. Incision site is clean and dry. Colostomy appears to be functioning well. NG tube is in place. Attempt to give tube feedings was held because of the risk of aspiration. His labs showed his potassium 3.3 and getting K-riders. PLAN: The plan is to continue him on TPN and hopefully extubate in a.m. DICTATING PHYSICIAN: TEX MCKEON M.D. [id number] PHY#: [id number] ID: [id number] JOB#: [id number] ACCT: [id number] cc: >
[2016-12-30] MEDS: ERTAPENEM SODIUM 1 GM in NORMAL SALINE 50 ML IV SCH (14:28)
--- NOTE | 2016-12-30 17:11 | PDOC PROGRESS REPORT ---
Subjective Progress Note for:: 12/30/16 Subjective:: Patient is currently sedated and intubated. Discussed patient with treating nurse. After diuresis patient was able to be placed on pressure support on the vent. Earlier sedation was decreased and patient was awake and following commands. Extubation for the patient is in the near future but he is not ready yet. He is still using belly breathing to help breath and has crackles still present on the lungs. Physical Exam Vital Signs: Temp Pulse Resp BP Pulse Ox 99.5 F 72 16 105/46 L 99 12/30/16 16:00 12/30/16 16:00 12/30/16 16:30 12/30/16 16:00 12/30/16 16:30 Pulse Oximeter Continuous Start: 12/24/16 22: 07 Freq: Status: Complete Document 12/24/16 20:00 [facility] (Rec: 12/24/16 22:09 [facility] [email or web address]) Pulse Oximetry Assessment Oxygen Saturation (92-100) 100 Oxygen Flow Rate (L/min) 12 Oxygen Delivery Method Non-Rebreather Fraction of Inspired Oxygen (FIO2) 100 Equipment Usage Initial Set Up Continuous Pulse Oximeter 24 Hour Charge Charge Now Continuous SpO2 Machine # [id number] Intake & Output 12/29/16 12/30/16 12/31/16 06:59 06:59 06:59 Intake Total 3201 2203 Output Total 3934 7550 2780 [facility] -729 -5347 -2780 Weight 88.4 kg 88.3 kg General appearance: PRESENT: mild distress, well-nourished Mouth exam: PRESENT: moist, neck supple Neck exam: PRESENT: full ROM, JVD - -minor Respiratory exam: PRESENT: accessory muscle use, crackles - -bases, rhonchi - right lower lung field Cardiovascular exam: PRESENT: RRR, +S1, +S2 GI/Abdominal exam: PRESENT: normal bowel sounds, soft. ABSENT: ascites, firm, guarding Extremities exam: PRESENT: +1 edema Neurological exam: PRESENT: other - unconscious/sedated Skin exam: PRESENT: dry, normal color, warm Results Laboratory Results: 12/30/16 04:35 12/30/16 04:35 12/30/16 12/30/16 12/30/16 04:35 04:35 04:35 WBC 10.7 H RBC 2.88 L Hgb 9.0 L Hct 26.9 L MCV 93 MCH 31.3 MCHC 33.6 RDW 14.1 H Plt Count 221 Seg Neutrophils % 85.4 H Lymphocytes % 6.1 L Monocytes % 6.3 Eosinophils % 1.8 Basophils % 0.4 Absolute Neutrophils 9.2 H Absolute Lymphocytes 0.6 Absolute Monocytes 0.7 Absolute Eosinophils 0.2 Absolute Basophils 0.0 Carbonic Acid 1.06 HCO3/H2CO3 Ratio 26:1 ABG pH 7.52 H ABG pCO2 35.2 ABG pO2 114.0 H ABG HCO3 28.0 H ABG O2 Saturation 98.6 H ABG Base Excess 5.0 FiO2 30% Sodium 144.3 Potassium 3.3 L Chloride 110 H Carbon Dioxide 29 Anion Gap 5 BUN 38 H Creatinine 1.61 H Est GFR ( Amer) 50 L Est GFR (Non-Af Amer) 41 L Glucose 152 H Calcium 7.5 L Magnesium 12/30/16 04:35 WBC RBC Hgb Hct MCV MCH MCHC RDW Plt Count Seg Neutrophils % Lymphocytes % Monocytes % Eosinophils % Basophils % Absolute Neutrophils Absolute Lymphocytes Absolute Monocytes Absolute Eosinophils Absolute Basophils Carbonic Acid HCO3/H2CO3 Ratio ABG pH ABG pCO2 ABG pO2 ABG HCO3 ABG O2 Saturation ABG Base Excess FiO2 Sodium Potassium Chloride Carbon Dioxide Anion Gap BUN Creatinine Est GFR ( Amer) Est GFR (Non-Af Amer) Glucose Calcium Magnesium 1.7 12/28/16 12:15 Tracheal Aspirate Gram Stain - Final 12/28/16 12:15 Catheterized Urine Urine Culture - Final NO GROWTH 2 DAYS 12/25/16 01:02 Blood Blood Culture - Final NO GROWTH IN 5 DAYS 12/25/16 00:35 Blood Blood Culture - Final NO GROWTH IN 5 DAYS 12/24/16 12/24/16 12/24/16 16:50 18:10 21:50 Creatine Kinase 29 L 72 CK-MB (CK-2) Troponin I 0.036 12/24/16 12/25/16 12/25/16 21:50 00:35 00:35 Creatine Kinase 66 CK-MB (CK-2) Troponin I 0.038 0.044 12/25/16 12/25/16 21:50 21:50 Creatine Kinase 26 L CK-MB (CK-2) 0.59 Troponin I 0.033 Impressions: Chest/Abdomen CTA 12/24/16 00:00 IMPRESSION: 1. NORMAL CTA OF THE CHEST. NO PULMONARY EMBOLI. 2. MODERATE BILATERAL PLEURAL EFFUSIONS. DENSE CONSOLIDATION IN THE LOWER LOBES DUE TO ATELECTASIS. CANNOT EXCLUDE PNEUMONIA. 3. FINDINGS IN THE UPPER ABDOMEN DESCRIBED. POSTOPERATIVE TINY BUBBLES OF FREE AIR. DISTENDED STOMACH AND VISUALIZED SMALL BOWEL. Abdomen/Pelvis CT 12/25/16 00:00 IMPRESSION: 1. SURGICAL CHANGES DESCRIBED. MODERATE DILATION OF THE STOMACH AND MAJORITY OF THE SMALL BOWEL. THERE DOES APPEAR TO BE A TRANSITION IN THE DISTAL SMALL BOWEL BEFORE THE ILEOSTOMY. THIS COULD BE DUE TO ASYMMETRIC POSTOPERATIVE ILEUS. PARTIAL SMALL BOWEL OBSTRUCTION COULD BE PRESENT ALTHOUGH UNUSUAL SO SOON AFTER SURGERY. MODERATE FREE FLUID WELL POSTOPERATIVE FREE AIR. 2. BILATERAL LOWER LOBE CONSOLIDATIONS WITH SMALL -MODERATE PLEURAL EFFUSIONS. 3. OTHER STABLE INCIDENTAL FINDINGS ABOVE. Chest CT 12/28/16 00:00 IMPRESSION: Small bilateral pleural effusions are again identified. The previously described associated airspace consolidation most consistent with atelectatic changes appears improved. There has been interval development of fairly diffuse patchy ground-glass opacities which are slightly more pronounced in the right lung as compared to the left. These could represent areas of pulmonary edema or developing infiltrates. Other findings as noted above KUB X-Ray 12/28/16 00:00 IMPRESSION: Nasogastric tube projects over the lumen of the stomach. Multiple dilated loops of small bowel noted throughout the abdomen have decreased in comparison the prior study. Chest X-Ray 12/30/16 06:00 IMPRESSION: IMPROVED AERATION. NO ACUTE RADIOGRAPHIC FINDING IN THE CHEST. Assessment & Plan - Diagnosis (1) Acute hypoxemic respiratory failure Is this a current diagnosis for this admission?: YesPlan: Transitioned to pressure support on vent. Continue lasix at 20mg TID. (2) Acute renal failure Qualifiers: Acute renal failure type: unspecified Qualified Code(s): N17.9 - Acute kidney failure, unspecified Is this a current diagnosis for this admission?: YesPlan: stable (3) Adynamic ileus Is this a current diagnosis for this admission?: YesPlan: sounds like it has improved, bowel sounds have improved. (4) Aspiration pneumonia Qualifiers: Aspiration pneumonia type: unspecified Laterality: bilateral Lung location: lower lobe of lung Qualified Code(s): J69.0 - Pneumonitis due to inhalation of food and vomit Is this a current diagnosis for this admission?: YesPlan: on antibioitcs and improving (5) Hypotension Qualifiers: Hypotension type: unspecified hypotension type Qualified Code(s): I95.9 - Hypotension, unspecified Is this a current diagnosis for this admission?: YesPlan: currently off of pressures and stable (6) Septic shock Is this a current diagnosis for this admission?: YesPlan: improving, white count trending down. (7) Sigmoid volvulus Is this a current diagnosis for this admission?: Yes (8) Toxic megacolon Is this a current diagnosis for this admission?: Yes
[2016-12-30] MEDS: VANCOMYCIN HCL 1,750 MG in DEXTROSE 5%-WATER 250 ML IV SCH (22:11)
[2016-12-31] MEDS: PROPOFOL 100 ML IV PRN ×3 (02:51→20:03)
[2016-12-31] MEDS: AMINO ACIDS 5%/D25W 1,000 ML IV PRN (03:07)
[2016-12-31] MEDS: LOPERAMIDE HCL 2 MG CAPSULE PO SCH (05:37)
[2016-12-31] MEDS: FUROSEMIDE INJ/PF 20 MG/2 ML SDV IV SCH ×3 (05:37→21:33)
[2016-12-31 06:18] LABS: ARTERIAL BLOOD BASE EXCESS 6.9 mmol/L; ARTERIAL BLOOD O2 SATURATION 99.2 % (94-98)
[2016-12-31 06:23] LABS: ABSOLUTE BASOPHILS # (AUTO) 0.1 10^3/uL (0.0-0.2); ABSOLUTE EOSINOPHILS # (AUTO) 0.2 10^3/uL (0.0-0.6); ABSOLUTE LYMPHOCYTES (AUTO) 0.6 10^3/uL (0.5-4.7); ABSOLUTE MONOCYTES (AUTO) 0.4 10^3/uL (0.1-1.4); EOSINOPHILS % (AUTO) 3.4 % (0-6); HEMATOCRIT 24.1 % (37.9-51.0); HEMOGLOBIN 8.1 g/dL (13.5-17.0); HGB HCT DIFFERENCE 0.2; LYMPHOCYTES % (AUTO) 9.1 % (13-45); MEAN CORPUSCULAR HEMOGLOBIN 31.4 pg (27.0-33.4); MEAN CORPUSCULAR HGB CONC 33.5 g/dL (32.0-36.0); MEAN CORPUSCULAR VOLUME 94 fl (80-97); MONOCYTES % (AUTO) 7.1 % (3-13); RED BLOOD COUNT 2.57 10^6/uL (4.35-5.55); RED CELL DISTRIBUTION WIDTH 13.7 % (11.5-14.0); SEGMENTED NEUTROPHILS % (AUTO) 79.4 % (42-78); WHITE BLOOD COUNT 6.3 10^3/uL (4.0-10.5)
[2016-12-31 06:31] LABS: ANION GAP 7 (5-19); BLOOD UREA NITROGEN 40 mg/dL (7-20); CALCIUM 7.3 mg/dL (8.4-10.2); CARBON DIOXIDE 28 mmol/L (22-30); CHLORIDE 108 mmol/L (98-107); CREATININE RESULT 1.41 mg/dL (0.52-1.25); GLUCOSE 160 mg/dL (75-110); POTASSIUM 3.2 mmol/L (3.6-5.0); SODIUM 142.5 mmol/L (137-145); TRIGLYCERIDES 88 mg/dL (<150)
--- NOTE | 2016-12-31 07:05 | RADIOLOGY REPORT (SQ) ---
EXAM DESCRIPTION: CHEST SINGLE VIEW COMPLETED DATE/TIME: 12/31/2016 6:47 am REASON FOR STUDY: ACUTE/CHRONIC RESP FAILURE COMPARISON: 12/30/2016 and 12/29/2016 EXAM PARAMETERS: NUMBER OF VIEWS: One view TECHNIQUE: Single frontal radiograph of the chest. RADIATION DOSE: N/A LIMITATIONS: None. FINDINGS: TEMPORARY SUPPORT DEVICES:Endotracheal tube is identified and appears in adequate location nasogastric tube is identified with tip in side hole below the level of the diaphragm in left upper quadrant. Right IJ central venous catheter noted with tip in the right atrium. EKG leads overlie t he chest. LUNGS AND PLEURA: No pneumothorax is present. The density seen in the right lung base has improved i n comparison the prior study. No significant effusion. No focal infiltrate. MEDIASTINUM AND HILAR STRUCTURES: No masses. Contour normal. HEART AND VASCULAR STRUCTURES: Heart size is unchanged. Normal vascularity. Aorta normal for age BONES: No acute findings. OTHER: No other significant finding. IMPRESSION: 1. Support tubes and lines as above. 2. Interval decrease in the size of the density seen the right lung base comparison prior studies. No new focal infiltrates. No pneumothorax. TECHNICAL DOCUMENTATION: JOB ID: [id number] [email or web address] All Rights Reserved
[2016-12-31] MEDS: ENOXAPARIN SODIUM INJ 40 MG/0.4 ML DISP.SYRIN SUBCUT SCH (07:32)
[2016-12-31] MEDS: LEVALBUTEROL HCL NEB 1.25 MG/3 ML AMPUL NEB PRN ×2 (07:55→16:25)
[2016-12-31] MEDS: TOBRAMYCIN SULFATE NEB 40 MG/ML 30 ML NEB SCH (07:55)
--- NOTE | 2016-12-31 09:43 | PDOC PROGRESS REPORT ---
Subjective Progress Note for:: 12/31/16 Subjective:: The patient is on the ventilator Physical Exam Vital Signs: Temp Pulse Resp BP Pulse Ox 98.8 F 61 16 124/51 L 97 12/31/16 07:45 12/31/16 07:45 12/31/16 07:45 12/31/16 07:45 12/31/16 07:45 Pulse Oximeter Continuous Start: 12/24/16 22: 07 Freq: Status: Complete Document 12/24/16 20:00 [facility] (Rec: 12/24/16 22:09 [facility] [email or web address]) Pulse Oximetry Assessment Oxygen Saturation (92-100) 100 Oxygen Flow Rate (L/min) 12 Oxygen Delivery Method Non-Rebreather Fraction of Inspired Oxygen (FIO2) 100 Equipment Usage Initial Set Up Continuous Pulse Oximeter 24 Hour Charge Charge Now Continuous SpO2 Machine # [id number] Intake & Output 12/30/16 12/31/16 01/01/17 06:59 06:59 06:59 Intake Total 2203 2099 Output Total 7550 4920 25 [facility] -5347 -2821 -25 Weight 88.3 kg 85.7 kg General appearance: PRESENT: no acute distress Eye exam: PRESENT: conjunctiva pink. ABSENT: scleral icterus Ear exam: PRESENT: normal external ear exam Mouth exam: PRESENT: moist, tongue midline Neck exam: ABSENT: JVD Respiratory exam: PRESENT: clear to auscultation annabel. ABSENT: rales, rhonchi, wheezes Cardiovascular exam: PRESENT: RRR, systolic murmur - 3/6 systolic murmur. ABSENT: diastolic murmur, rubs GI/Abdominal exam: PRESENT: normal bowel sounds, soft, other - Ostomy in place in the right lower quadrant. ABSENT: distended, guarding, mass, organolmegaly, rebound, tenderness Extremities exam: ABSENT: calf tenderness, clubbing, pedal edema Neurological exam: PRESENT: other - Intubated on the ventilator Psychiatric exam: PRESENT: other - Unable to assess Skin exam: PRESENT: dry, intact, warm. ABSENT: cyanosis, rash Results Laboratory Results: 12/31/16 06:00 12/31/16 06:00 12/31/16 12/31/16 12/31/16 06:00 06:00 06:00 WBC 6.3 RBC 2.57 L Hgb 8.1 L Hct 24.1 L MCV 94 MCH 31.4 MCHC 33.5 RDW 13.7 Plt Count 251 Seg Neutrophils % 79.4 H Lymphocytes % 9.1 L Monocytes % 7.1 Eosinophils % 3.4 Basophils % 1.0 Absolute Neutrophils 5.0 Absolute Lymphocytes 0.6 Absolute Monocytes 0.4 Absolute Eosinophils 0.2 Absolute Basophils 0.1 Carbonic Acid 1.06 HCO3/H2CO3 Ratio 28:1 ABG pH 7.55 H ABG pCO2 35.2 ABG pO2 157.6 H ABG HCO3 29.8 H ABG O2 Saturation 99.2 H ABG Base Excess 6.9 FiO2 30% Sodium 142.5 Potassium 3.2 L Chloride 108 H Carbon Dioxide 28 Anion Gap 7 BUN 40 H Creatinine 1.41 H Est GFR ( Amer) 59 L Est GFR (Non-Af Amer) 48 L Glucose 160 H Calcium 7.3 L Triglycerides 88 12/28/16 12:15 Tracheal Aspirate Gram Stain - Final 12/28/16 12:15 Catheterized Urine Urine Culture - Final NO GROWTH 2 DAYS 12/24/16 12/24/16 12/24/16 16:50 18:10 21:50 Creatine Kinase 29 L 72 CK-MB (CK-2) Troponin I 0.036 12/24/16 12/25/16 12/25/16 21:50 00:35 00:35 Creatine Kinase 66 CK-MB (CK-2) Troponin I 0.038 0.044 12/25/16 12/25/16 21:50 21:50 Creatine Kinase 26 L CK-MB (CK-2) 0.59 Troponin I 0.033 Impressions: Chest/Abdomen CTA 12/24/16 00:00 IMPRESSION: 1. NORMAL CTA OF THE CHEST. NO PULMONARY EMBOLI. 2. MODERATE BILATERAL PLEURAL EFFUSIONS. DENSE CONSOLIDATION IN THE LOWER LOBES DUE TO ATELECTASIS. CANNOT EXCLUDE PNEUMONIA. 3. FINDINGS IN THE UPPER ABDOMEN DESCRIBED. POSTOPERATIVE TINY BUBBLES OF FREE AIR. DISTENDED STOMACH AND VISUALIZED SMALL BOWEL. Abdomen/Pelvis CT 12/25/16 00:00 IMPRESSION: 1. SURGICAL CHANGES DESCRIBED. MODERATE DILATION OF THE STOMACH AND MAJORITY OF THE SMALL BOWEL. THERE DOES APPEAR TO BE A TRANSITION IN THE DISTAL SMALL BOWEL BEFORE THE ILEOSTOMY. THIS COULD BE DUE TO ASYMMETRIC POSTOPERATIVE ILEUS. PARTIAL SMALL BOWEL OBSTRUCTION COULD BE PRESENT ALTHOUGH UNUSUAL SO SOON AFTER SURGERY. MODERATE FREE FLUID WELL POSTOPERATIVE FREE AIR. 2. BILATERAL LOWER LOBE CONSOLIDATIONS WITH SMALL -MODERATE PLEURAL EFFUSIONS. 3. OTHER STABLE INCIDENTAL FINDINGS ABOVE. Chest CT 12/28/16 00:00 IMPRESSION: Small bilateral pleural effusions are again identified. The previously described associated airspace consolidation most consistent with atelectatic changes appears improved. There has been interval development of fairly diffuse patchy ground-glass opacities which are slightly more pronounced in the right lung as compared to the left. These could represent areas of pulmonary edema or developing infiltrates. Other findings as noted above KUB X-Ray 12/28/16 00:00 IMPRESSION: Nasogastric tube projects over the lumen of the stomach. Multiple dilated loops of small bowel noted throughout the abdomen have decreased in comparison the prior study. Chest X-Ray 12/31/16 06:00 IMPRESSION: 1. Support tubes and lines as above. 2. Interval decrease in the size of the density seen the right lung base comparison prior studies. No new focal infiltrates. No pneumothorax. Assessment & Plan - Diagnosis (1) Acute hypoxemic respiratory failure Is this a current diagnosis for this admission?: YesPlan: Secondary to aspiration. Patient currently on the ventilator. This is being managed by pulmonary medicine. Significant weakness secondary to malnutrition that is slowing down his ability to wean off the ventilator. (2) Aspiration pneumonia Qualifiers: Aspiration pneumonia type: unspecified Laterality: bilateral Lung location: lower lobe of lung Qualified Code(s): J69.0 - Pneumonitis due to inhalation of food and vomit Is this a current diagnosis for this admission?: YesPlan: DC the antibiotics as he has completed a course of therapy. (3) Sigmoid volvulus Is this a current diagnosis for this admission?: YesPlan: Has had surgical repair (4) Toxic megacolon Is this a current diagnosis for this admission?: YesPlan: Has had surgical repair. 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 followed by nephrology. (6) BPH (benign prostatic hyperplasia) Qualifiers: Lower urinary tract symptom presence: unspecified whether lower urinary tract symptoms present Qualified Code(s): N40.0 - Benign prostatic hyperplasia without lower urinary tract symptoms Is this a current diagnosis for this admission?: Yes (7) Essential hypertension Is this a current diagnosis for this admission?: Yes (8) Hyperlipidemia, acquired Is this a current diagnosis for this admission?: Yes (9) Adynamic ileus Is this a current diagnosis for this admission?: YesPlan: Has been getting TPN. Restart the tube feeds today. - Time Time Spent with patient: 25-34 minutes - Inpatient Certification Medical Necessity: Need Close Monitoring Due to Risk of Patient Decompensation - Plan Summary Plan Summary: Hospitalist service will be taking over as primary for this patient given that the surgical problems have resolved. This was discussed with Dr. Gregory general surgeon
[2016-12-31] MEDS: POTASSI CL 20 MEQ/50 ML RIDER 50 ML IV SCH ×2 (09:44→11:37)
--- NOTE | 2016-12-31 10:43 | PDOC PROGRESS REPORT ---
Subjective Progress Note for:: 12/31/16 Subjective:: 12 days status post total colectomy, ileostomy, remains intubated in the ICU with resolving sepsis, off vasopressors; failed attempt at weaning from extubation yesterday Physical Exam Vital Signs: Temp Pulse Resp BP Pulse Ox 99.3 F 75 16 99/54 L 97 12/31/16 10:00 12/31/16 10:00 12/31/16 10:15 12/31/16 10:00 12/31/16 10:15 Pulse Oximeter Continuous Start: 12/24/16 22: 07 Freq: Status: Complete Document 12/24/16 20:00 [facility] (Rec: 12/24/16 22:09 [facility] [email or web address]) Pulse Oximetry Assessment Oxygen Saturation (92-100) 100 Oxygen Flow Rate (L/min) 12 Oxygen Delivery Method Non-Rebreather Fraction of Inspired Oxygen (FIO2) 100 Equipment Usage Initial Set Up Continuous Pulse Oximeter 24 Hour Charge Charge Now Continuous SpO2 Machine # [id number] Intake & Output 12/30/16 12/31/16 01/01/17 06:59 06:59 06:59 Intake Total 2203 2099 Output Total 7550 4920 400 Balance -5347 -2821 -400 Weight 88.3 kg 85.7 kg General appearance: PRESENT: no acute distress GI/Abdominal exam: PRESENT: other - Abdomen is soft; midline wound healing up nicely. Ileostomy putting a significant amount of fluid Results Laboratory Results: 12/31/16 06:00 12/31/16 06:00 12/31/16 12/31/16 12/31/16 06:00 06:00 06:00 WBC 6.3 RBC 2.57 L Hgb 8.1 L Hct 24.1 L MCV 94 MCH 31.4 MCHC 33.5 RDW 13.7 Plt Count 251 Seg Neutrophils % 79.4 H Lymphocytes % 9.1 L Monocytes % 7.1 Eosinophils % 3.4 Basophils % 1.0 Absolute Neutrophils 5.0 Absolute Lymphocytes 0.6 Absolute Monocytes 0.4 Absolute Eosinophils 0.2 Absolute Basophils 0.1 Carbonic Acid 1.06 HCO3/H2CO3 Ratio 28:1 ABG pH 7.55 H ABG pCO2 35.2 ABG pO2 157.6 H ABG HCO3 29.8 H ABG O2 Saturation 99.2 H ABG Base Excess 6.9 FiO2 30% Sodium 142.5 Potassium 3.2 L Chloride 108 H Carbon Dioxide 28 Anion Gap 7 BUN 40 H Creatinine 1.41 H Est GFR ( Amer) 59 L Est GFR (Non-Af Amer) 48 L Glucose 160 H Calcium 7.3 L Triglycerides 88 12/28/16 12:15 Tracheal Aspirate Gram Stain - Final 12/28/16 12:15 Catheterized Urine Urine Culture - Final NO GROWTH 2 DAYS 12/24/16 12/24/16 12/24/16 16:50 18:10 21:50 Creatine Kinase 29 L 72 CK-MB (CK-2) Troponin I 0.036 12/24/16 12/25/16 12/25/16 21:50 00:35 00:35 Creatine Kinase 66 CK-MB (CK-2) Troponin I 0.038 0.044 12/25/16 12/25/16 21:50 21:50 Creatine Kinase 26 L CK-MB (CK-2) 0.59 Troponin I 0.033 Impressions: Chest/Abdomen CTA 12/24/16 00:00 IMPRESSION: 1. NORMAL CTA OF THE CHEST. NO PULMONARY EMBOLI. 2. MODERATE BILATERAL PLEURAL EFFUSIONS. DENSE CONSOLIDATION IN THE LOWER LOBES DUE TO ATELECTASIS. CANNOT EXCLUDE PNEUMONIA. 3. FINDINGS IN THE UPPER ABDOMEN DESCRIBED. POSTOPERATIVE TINY BUBBLES OF FREE AIR. DISTENDED STOMACH AND VISUALIZED SMALL BOWEL. Abdomen/Pelvis CT 12/25/16 00:00 IMPRESSION: 1. SURGICAL CHANGES DESCRIBED. MODERATE DILATION OF THE STOMACH AND MAJORITY OF THE SMALL BOWEL. THERE DOES APPEAR TO BE A TRANSITION IN THE DISTAL SMALL BOWEL BEFORE THE ILEOSTOMY. THIS COULD BE DUE TO ASYMMETRIC POSTOPERATIVE ILEUS. PARTIAL SMALL BOWEL OBSTRUCTION COULD BE PRESENT ALTHOUGH UNUSUAL SO SOON AFTER SURGERY. MODERATE FREE FLUID WELL POSTOPERATIVE FREE AIR. 2. BILATERAL LOWER LOBE CONSOLIDATIONS WITH SMALL -MODERATE PLEURAL EFFUSIONS. 3. OTHER STABLE INCIDENTAL FINDINGS ABOVE. Chest CT 12/28/16 00:00 IMPRESSION: Small bilateral pleural effusions are again identified. The previously described associated airspace consolidation most consistent with atelectatic changes appears improved. There has been interval development of fairly diffuse patchy ground-glass opacities which are slightly more pronounced in the right lung as compared to the left. These could represent areas of pulmonary edema or developing infiltrates. Other findings as noted above KUB X-Ray 12/28/16 00:00 IMPRESSION: Nasogastric tube projects over the lumen of the stomach. Multiple dilated loops of small bowel noted throughout the abdomen have decreased in comparison the prior study. Chest X-Ray 12/31/16 06:00 IMPRESSION: 1. Support tubes and lines as above. 2. Interval decrease in the size of the density seen the right lung base comparison prior studies. No new focal infiltrates. No pneumothorax. 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 Plan 1. Discussed management with Dr. Masterson. We will transfer care patient to hospiatlist service, the hospitalist service. 2. Gently resume tube feeds via existing nasogastric tube. 3. Replace potassium.
--- NOTE | 2016-12-31 17:25 | PDOC PROGRESS REPORT ---
Subjective Progress Note for:: 12/31/16 Subjective:: Patient failed attempt(<2hrs) at a pressure support and CPAP Physical Exam Vital Signs: Temp Pulse Resp BP Pulse Ox 98.8 F 61 16 124/51 L 97 12/31/16 07:45 12/31/16 07:45 12/31/16 07:45 12/31/16 07:45 12/31/16 07:45 Pulse Oximeter Continuous Start: 12/24/16 22: 07 Freq: Status: Complete Document 12/24/16 20:00 [facility] (Rec: 12/24/16 22:09 [facility] [email or web address]) Pulse Oximetry Assessment Oxygen Saturation (92-100) 100 Oxygen Flow Rate 12 Oxygen Delivery Method Non-Rebreather Fraction of Inspired Oxygen (FIO2) 100 Equipment Usage Initial Set Up Continuous Pulse Oximeter 24 Hour Charge Charge Now Continuous SpO2 Machine # [id number]-6 Intake & Output 12/30/16 12/31/16 01/01/17 06:59 06:59 06:59 Intake Total 2203 2099 Output Total 7550 4920 25 Balance -5347 -2821 -25 Weight 88.3 kg 85.7 kg General appearance: PRESENT: no acute distress, disheveled, thin, well-developed Head exam: PRESENT: atraumatic, normocephalic Eye exam: PRESENT: conjunctiva pale Mouth exam: PRESENT: dry mucosa, neck supple, tongue midline, other - ET tube Neck exam: ABSENT: carotid bruit, JVD, lymphadenopathy, thyromegaly Respiratory exam: PRESENT: decreased breath sounds, prolonged expiratory phas, rhonchi, unlabored Cardiovascular exam: PRESENT: RRR, +S1, +S2, other - ectopic beats Pulses: PRESENT: normal radial pulses GI/Abdominal exam: PRESENT: other - ostomy s/p surgery Rectal exam: PRESENT: deferred Gentrourinary exam: PRESENT: indwelling catheter Musculoskeletal exam: PRESENT: normal inspection Skin exam: PRESENT: dry, warm Results Laboratory Results: 12/31/16 06:00 12/31/16 06:00 12/31/16 12/31/16 12/31/16 06:00 06:00 06:00 WBC 6.3 RBC 2.57 L Hgb 8.1 L Hct 24.1 L MCV 94 MCH 31.4 MCHC 33.5 RDW 13.7 Plt Count 251 Seg Neutrophils % 79.4 H Lymphocytes % 9.1 L Monocytes % 7.1 Eosinophils % 3.4 Basophils % 1.0 Absolute Neutrophils 5.0 Absolute Lymphocytes 0.6 Absolute Monocytes 0.4 Absolute Eosinophils 0.2 Absolute Basophils 0.1 Carbonic Acid 1.06 HCO3/H2CO3 Ratio 28:1 ABG pH 7.55 H ABG pCO2 35.2 ABG pO2 157.6 H ABG HCO3 29.8 H ABG O2 Saturation 99.2 H ABG Base Excess 6.9 FiO2 30% Sodium 142.5 Potassium 3.2 L Chloride 108 H Carbon Dioxide 28 Anion Gap 7 BUN 40 H Creatinine 1.41 H Est GFR ( Amer) 59 L Est GFR (Non-Af Amer) 48 L Glucose 160 H Calcium 7.3 L Triglycerides 88 12/28/16 12:15 Tracheal Aspirate Gram Stain - Final 12/28/16 12:15 Catheterized Urine Urine Culture - Final NO GROWTH 2 DAYS 12/24/16 12/24/16 12/24/16 16:50 18:10 21:50 Creatine Kinase 29 L 72 CK-MB (CK-2) Troponin I 0.036 12/24/16 12/25/16 12/25/16 21:50 00:35 00:35 Creatine Kinase 66 CK-MB (CK-2) Troponin I 0.038 0.044 12/25/16 12/25/16 21:50 21:50 Creatine Kinase 26 L CK-MB (CK-2) 0.59 Troponin I 0.033 Impressions: Chest/Abdomen CTA 12/24/16 00:00 IMPRESSION: 1. NORMAL CTA OF THE CHEST. NO PULMONARY EMBOLI. 2. MODERATE BILATERAL PLEURAL EFFUSIONS. DENSE CONSOLIDATION IN THE LOWER LOBES DUE TO ATELECTASIS. CANNOT EXCLUDE PNEUMONIA. 3. FINDINGS IN THE UPPER ABDOMEN DESCRIBED. POSTOPERATIVE TINY BUBBLES OF FREE AIR. DISTENDED STOMACH AND VISUALIZED SMALL BOWEL. Abdomen/Pelvis CT 12/25/16 00:00 IMPRESSION: 1. SURGICAL CHANGES DESCRIBED. MODERATE DILATION OF THE STOMACH AND MAJORITY OF THE SMALL BOWEL. THERE DOES APPEAR TO BE A TRANSITION IN THE DISTAL SMALL BOWEL BEFORE THE ILEOSTOMY. THIS COULD BE DUE TO ASYMMETRIC POSTOPERATIVE ILEUS. PARTIAL SMALL BOWEL OBSTRUCTION COULD BE PRESENT ALTHOUGH UNUSUAL SO SOON AFTER SURGERY. MODERATE FREE FLUID WELL POSTOPERATIVE FREE AIR. 2. BILATERAL LOWER LOBE CONSOLIDATIONS WITH SMALL -MODERATE PLEURAL EFFUSIONS. 3. OTHER STABLE INCIDENTAL FINDINGS ABOVE. Chest CT 12/28/16 00:00 IMPRESSION: Small bilateral pleural effusions are again identified. The previously described associated airspace consolidation most consistent with atelectatic changes appears improved. There has been interval development of fairly diffuse patchy ground-glass opacities which are slightly more pronounced in the right lung as compared to the left. These could represent areas of pulmonary edema or developing infiltrates. Other findings as noted above KUB X-Ray 12/28/16 00:00 IMPRESSION: Nasogastric tube projects over the lumen of the stomach. Multiple dilated loops of small bowel noted throughout the abdomen have decreased in comparison the prior study. Chest X-Ray 12/31/16 06:00 IMPRESSION: 1. Support tubes and lines as above. 2. Interval decrease in the size of the density seen the right lung base comparison prior studies. No new focal infiltrates. No pneumothorax. Assessment & Plan - Diagnosis (1) Acute renal failure Qualifiers: Acute renal failure type: unspecified Qualified Code(s): N17.9 - Acute kidney failure, unspecified Is this a current diagnosis for this admission?: YesPlan: creatnine remains elevated (2) Acute respiratory failure with hypoxia and hypercapnia Is this a current diagnosis for this admission?: YesPlan: fio2 min volume resp rate;no excessive requirements inability to sustain WOB (3) Aspiration into respiratory tract Is this a current diagnosis for this admission?: YesPlan: wbc wnl completed antibiotics (4) Septic shock Is this a current diagnosis for this admission?: Yes - Time Critical Time spent with patient: 25-34 minutes
--- NOTE | 2016-12-31 17:30 | PDOC PROGRESS REPORT ---
Subjective Progress Note for:: 12/30/16 Subjective:: Patient failed attempt(<1hrs) of pressure support and CPAP Physical Exam Vital Signs: Temp Pulse Resp BP Pulse Ox 100.2 F 78 21 H 133/50 H 98 12/28/16 19:52 12/29/16 20:58 12/30/16 06:00 12/30/16 05:49 12/30/16 06:00 Pulse Oximeter Continuous Start: 12/24/16 22: 07 Freq: Status: Complete Document 12/24/16 20:00 [facility] (Rec: 12/24/16 22:09 [facility] [email or web address]) Pulse Oximetry Assessment Oxygen Saturation (92-100) 100 Oxygen Flow Rate (L/min) 12 Oxygen Delivery Method Non-Rebreather Fraction of Inspired Oxygen (FIO2) 100 Equipment Usage Initial Set Up Continuous Pulse Oximeter 24 Hour Charge Charge Now Continuous SpO2 Machine # [id number]-6 Intake & Output 12/29/16 12/30/16 12/31/16 06:59 06:59 06:59 Intake Total 3201 2203 Output Total 3936 1317 Balance -868 -9091 Weight 88.4 kg 88.3 kg General appearance: PRESENT: no acute distress, disheveled, thin, well-developed Head exam: PRESENT: atraumatic, normocephalic Eye exam: PRESENT: conjunctiva pale Mouth exam: PRESENT: dry mucosa, neck supple, tongue midline, other - ET tube Neck exam: ABSENT: carotid bruit, JVD, lymphadenopathy, thyromegaly Respiratory exam: PRESENT: decreased breath sounds, prolonged expiratory phas, rhonchi, symmetrical, unlabored Cardiovascular exam: PRESENT: RRR, +S1, +S2, other - frequent ectopy Pulses: PRESENT: normal dorsalis pedis pul GI/Abdominal exam: PRESENT: soft, other - ostomy draining post surgery Rectal exam: PRESENT: deferred Gentrourinary exam: PRESENT: indwelling catheter Extremities exam: PRESENT: +1 edema Skin exam: PRESENT: dry, warm Results Laboratory Results: 12/30/16 04:35 12/30/16 04:35 12/29/16 12/30/16 12/30/16 08:02 04:35 04:35 WBC RBC Hgb Hct MCV MCH MCHC RDW Plt Count Seg Neutrophils % Lymphocytes % Monocytes % Eosinophils % Basophils % Absolute Neutrophils Absolute Lymphocytes Absolute Monocytes Absolute Eosinophils Absolute Basophils Carbonic Acid 1.10 1.06 HCO3/H2CO3 Ratio 23:1 26:1 ABG pH 7.47 H 7.52 H ABG pCO2 36.4 35.2 ABG pO2 112.6 H 114.0 H ABG HCO3 25.8 28.0 H ABG O2 Saturation 98.4 H 98.6 H ABG Base Excess 2.1 5.0 FiO2 40% 30% Sodium 144.3 Potassium 3.3 L Chloride 110 H Carbon Dioxide 29 Anion Gap 5 BUN 38 H Creatinine 1.61 H Est GFR ( Amer) 50 L Est GFR (Non-Af Amer) 41 L Glucose 152 H Calcium 7.5 L Magnesium 12/30/16 12/30/16 04:35 04:35 WBC 10.7 H RBC 2.88 L Hgb 9.0 L Hct 26.9 L MCV 93 MCH 31.3 MCHC 33.6 RDW 14.1 H Plt Count 221 Seg Neutrophils % 85.4 H Lymphocytes % 6.1 L Monocytes % 6.3 Eosinophils % 1.8 Basophils % 0.4 Absolute Neutrophils 9.2 H Absolute Lymphocytes 0.6 Absolute Monocytes 0.7 Absolute Eosinophils 0.2 Absolute Basophils 0.0 Carbonic Acid HCO3/H2CO3 Ratio ABG pH ABG pCO2 ABG pO2 ABG HCO3 ABG O2 Saturation ABG Base Excess FiO2 Sodium Potassium Chloride Carbon Dioxide Anion Gap BUN Creatinine Est GFR ( Amer) Est GFR (Non-Af Amer) Glucose Calcium Magnesium 1.7 12/25/16 01:02 Blood Blood Culture - Final NO GROWTH IN 5 DAYS 12/25/16 00:35 Blood Blood Culture - Final NO GROWTH IN 5 DAYS 12/27/16 08:10 Catheterized Urine Urine Culture - Final NO GROWTH 2 DAYS 12/24/16 12/24/16 12/24/16 16:50 18:10 21:50 Creatine Kinase 29 L 72 CK-MB (CK-2) Troponin I 0.036 12/24/16 12/25/16 12/25/16 21:50 00:35 00:35 Creatine Kinase 66 CK-MB (CK-2) Troponin I 0.038 0.044 12/25/16 12/25/16 21:50 21:50 Creatine Kinase 26 L CK-MB (CK-2) 0.59 Troponin I 0.033 Impressions: Chest/Abdomen CTA 12/24/16 00:00 IMPRESSION: 1. NORMAL CTA OF THE CHEST. NO PULMONARY EMBOLI. 2. MODERATE BILATERAL PLEURAL EFFUSIONS. DENSE CONSOLIDATION IN THE LOWER LOBES DUE TO ATELECTASIS. CANNOT EXCLUDE PNEUMONIA. 3. FINDINGS IN THE UPPER ABDOMEN DESCRIBED. POSTOPERATIVE TINY BUBBLES OF FREE AIR. DISTENDED STOMACH AND VISUALIZED SMALL BOWEL. Abdomen/Pelvis CT 12/25/16 00:00 IMPRESSION: 1. SURGICAL CHANGES DESCRIBED. MODERATE DILATION OF THE STOMACH AND MAJORITY OF THE SMALL BOWEL. THERE DOES APPEAR TO BE A TRANSITION IN THE DISTAL SMALL BOWEL BEFORE THE ILEOSTOMY. THIS COULD BE DUE TO ASYMMETRIC POSTOPERATIVE ILEUS. PARTIAL SMALL BOWEL OBSTRUCTION COULD BE PRESENT ALTHOUGH UNUSUAL SO SOON AFTER SURGERY. MODERATE FREE FLUID WELL POSTOPERATIVE FREE AIR. 2. BILATERAL LOWER LOBE CONSOLIDATIONS WITH SMALL -MODERATE PLEURAL EFFUSIONS. 3. OTHER STABLE INCIDENTAL FINDINGS ABOVE. Chest CT 12/28/16 00:00 IMPRESSION: Small bilateral pleural effusions are again identified. The previously described associated airspace consolidation most consistent with atelectatic changes appears improved. There has been interval development of fairly diffuse patchy ground-glass opacities which are slightly more pronounced in the right lung as compared to the left. These could represent areas of pulmonary edema or developing infiltrates. Other findings as noted above KUB X-Ray 12/28/16 00:00 IMPRESSION: Nasogastric tube projects over the lumen of the stomach. Multiple dilated loops of small bowel noted throughout the abdomen have decreased in comparison the prior study. Chest X-Ray 12/30/16 06:00 IMPRESSION: IMPROVED AERATION. NO ACUTE RADIOGRAPHIC FINDING IN THE CHEST. Assessment & Plan - Diagnosis (1) Acute renal failure Qualifiers: Acute renal failure type: unspecified Qualified Code(s): N17.9 - Acute kidney failure, unspecified Is this a current diagnosis for this admission?: Yes (2) Acute respiratory failure with hypoxia and hypercapnia Is this a current diagnosis for this admission?: YesPlan: weakness limiting factor (3) Aspiration into respiratory tract Is this a current diagnosis for this admission?: Yes (4) Septic shock Is this a current diagnosis for this admission?: Yes - Time Critical Time spent with patient: 25-34 minutes
--- NOTE | 2016-12-31 17:33 | PDOC PROGRESS REPORT ---
Subjective Progress Note for:: 12/29/16 Physical Exam Vital Signs: Temp Pulse Resp BP Pulse Ox 100.2 F 72 20 126/53 H 100 12/28/16 19:52 12/28/16 21:04 12/29/16 06:15 12/29/16 06:03 12/29/16 06:15 Pulse Oximeter Continuous Start: 12/24/16 22: 07 Freq: Status: Complete Document 12/24/16 20:00 [facility] (Rec: 12/24/16 22:09 [facility] [email or web address]) Pulse Oximetry Assessment Oxygen Saturation (92-100) 100 Oxygen Flow Rate (L/min) 12 Oxygen Delivery Method Non-Rebreather Fraction of Inspired Oxygen (FIO2) 100 Equipment Usage Initial Set Up Continuous Pulse Oximeter 24 Hour Charge Charge Now Continuous SpO2 Machine # [id number] Intake & Output 12/28/16 12/29/16 12/30/16 06:59 06:59 06:59 Intake Total 3565 3201 Output Total 5693 7670 Balance -285 -729 Weight 91.4 kg 88.4 kg Results Laboratory Results: 12/29/16 03:25 12/29/16 03:25 12/28/16 12/28/16 12/28/16 08:15 08:15 08:15 WBC 10.3 RBC 2.77 L Hgb 8.7 L Hct 26.3 L MCV 95 MCH 31.4 MCHC 33.0 RDW 14.1 H Plt Count 159 Seg Neutrophils % Not Reportable Lymphocytes % Not Reportable Monocytes % Not Reportable Eosinophils % Not Reportable Basophils % Not Reportable Absolute Neutrophils Not Reportable Absolute Lymphocytes Not Reportable Absolute Monocytes Not Reportable Absolute Eosinophils Not Reportable Absolute Basophils Not Reportable Carbonic Acid 1.18 HCO3/H2CO3 Ratio 19:1 ABG pH 7.39 ABG pCO2 39.3 ABG pO2 102.1 H ABG HCO3 23.2 ABG O2 Saturation 97.6 ABG Base Excess -1.6 FiO2 40% Sodium Potassium Chloride Carbon Dioxide Anion Gap BUN Creatinine Est GFR ( Amer) Est GFR (Non-Af Amer) Glucose Calcium Phosphorus Magnesium 2.0 Total Bilirubin AST ALT Alkaline Phosphatase Total Protein Albumin Prealbumin 12/28/16 12/29/16 12/29/16 16:40 03:25 03:25 WBC 14.7 H RBC 2.88 L Hgb 8.8 L Hct 27.0 L MCV 94 MCH 30.7 MCHC 32.7 RDW 14.1 H Plt Count 210 Seg Neutrophils % Not Reportable Lymphocytes % Not Reportable Monocytes % Not Reportable Eosinophils % Not Reportable Basophils % Not Reportable Absolute Neutrophils Not Reportable Absolute Lymphocytes Not Reportable Absolute Monocytes Not Reportable Absolute Eosinophils Not Reportable Absolute Basophils Not Reportable Carbonic Acid HCO3/H2CO3 Ratio ABG pH ABG pCO2 ABG pO2 ABG HCO3 ABG O2 Saturation ABG Base Excess FiO2 Sodium 142.6 Potassium 3.6 3.4 L Chloride 112 H Carbon Dioxide 24 Anion Gap 7 BUN 39 H Creatinine 1.59 H Est GFR ( Amer) 51 L Est GFR (Non-Af Amer) 42 L Glucose 169 H Calcium 7.3 L Phosphorus 2.8 Magnesium 1.9 Total Bilirubin 0.3 AST 33 ALT 41 Alkaline Phosphatase 95 Total Protein 3.7 L Albumin 1.6 L Prealbumin 7.8 L 12/24/16 12/24/16 12/24/16 16:50 18:10 21:50 Creatine Kinase 29 L 72 CK-MB (CK-2) Troponin I 0.036 12/24/16 12/25/16 12/25/16 21:50 00:35 00:35 Creatine Kinase 66 CK-MB (CK-2) Troponin I 0.038 0.044 12/25/16 12/25/16 21:50 21:50 Creatine Kinase 26 L CK-MB (CK-2) 0.59 Troponin I 0.033 Impressions: Chest/Abdomen CTA 12/24/16 00:00 IMPRESSION: 1. NORMAL CTA OF THE CHEST. NO PULMONARY EMBOLI. 2. MODERATE BILATERAL PLEURAL EFFUSIONS. DENSE CONSOLIDATION IN THE LOWER LOBES DUE TO ATELECTASIS. CANNOT EXCLUDE PNEUMONIA. 3. FINDINGS IN THE UPPER ABDOMEN DESCRIBED. POSTOPERATIVE TINY BUBBLES OF FREE AIR. DISTENDED STOMACH AND VISUALIZED SMALL BOWEL. Abdomen/Pelvis CT 12/25/16 00:00 IMPRESSION: 1. SURGICAL CHANGES DESCRIBED. MODERATE DILATION OF THE STOMACH AND MAJORITY OF THE SMALL BOWEL. THERE DOES APPEAR TO BE A TRANSITION IN THE DISTAL SMALL BOWEL BEFORE THE ILEOSTOMY. THIS COULD BE DUE TO ASYMMETRIC POSTOPERATIVE ILEUS. PARTIAL SMALL BOWEL OBSTRUCTION COULD BE PRESENT ALTHOUGH UNUSUAL SO SOON AFTER SURGERY. MODERATE FREE FLUID WELL POSTOPERATIVE FREE AIR. 2. BILATERAL LOWER LOBE CONSOLIDATIONS WITH SMALL -MODERATE PLEURAL EFFUSIONS. 3. OTHER STABLE INCIDENTAL FINDINGS ABOVE. Chest CT 12/28/16 00:00 IMPRESSION: Small bilateral pleural effusions are again identified. The previously described associated airspace consolidation most consistent with atelectatic changes appears improved. There has been interval development of fairly diffuse patchy ground-glass opacities which are slightly more pronounced in the right lung as compared to the left. These could represent areas of pulmonary edema or developing infiltrates. Other findings as noted above KUB X-Ray 12/28/16 00:00 IMPRESSION: Nasogastric tube projects over the lumen of the stomach. Multiple dilated loops of small bowel noted throughout the abdomen have decreased in comparison the prior study. Chest X-Ray 12/29/16 06:00 IMPRESSION: NO CHANGE IN APPEARANCE OF THE CHEST. Assessment & Plan - Diagnosis (1) Acute renal failure Qualifiers: Acute renal failure type: unspecified Qualified Code(s): N17.9 - Acute kidney failure, unspecified Is this a current diagnosis for this admission?: YesPlan: unchanged (2) Acute respiratory failure with hypoxia and hypercapnia Is this a current diagnosis for this admission?: Yes (3) Aspiration into respiratory tract Is this a current diagnosis for this admission?: Yes (4) Septic shock Is this a current diagnosis for this admission?: Yes - Time Critical Time spent with patient: 25-34 minutes
[2016-12-31] MEDS: METOCLOPRAMIDE HCL INJ/PF 10 MG/2 ML SDV IV SCH (18:23)
[2016-12-31 22:48] LABS: CREATININE RESULT 1.45 mg/dL (0.52-1.25)
[2017-01-01] MEDS: PROPOFOL 100 ML IV PRN ×2 (00:11→05:31)
[2017-01-01] MEDS: METOCLOPRAMIDE HCL INJ/PF 10 MG/2 ML SDV IV SCH ×5 (00:11→23:15)
[2017-01-01] MEDS: AMINO ACIDS 5%/D25W 1,000 ML IV PRN ×2 (00:12→19:25)
[2017-01-01] MEDS: FUROSEMIDE INJ/PF 20 MG/2 ML SDV IV SCH ×3 (05:31→21:39)
[2017-01-01 06:26] LABS: ARTERIAL BLOOD BASE EXCESS 8.4 mmol/L; ARTERIAL BLOOD O2 SATURATION 96.3 % (94-98)
[2017-01-01 06:30] LABS: ABSOLUTE BASOPHILS # (AUTO) 0.1 10^3/uL (0.0-0.2); ABSOLUTE EOSINOPHILS # (AUTO) 0.2 10^3/uL (0.0-0.6); ABSOLUTE LYMPHOCYTES (AUTO) 0.6 10^3/uL (0.5-4.7); ABSOLUTE MONOCYTES (AUTO) 0.5 10^3/uL (0.1-1.4); ABSOLUTE NEUT (AUTO) 5.2 10^3/uL (1.7-8.2); BASOPHILS % (AUTO) 0.8 % (0-2); EOSINOPHILS % (AUTO) 3.1 % (0-6); HEMATOCRIT 25.5 % (37.9-51.0); HEMOGLOBIN 8.7 g/dL (13.5-17.0); HGB HCT DIFFERENCE 0.6; LYMPHOCYTES % (AUTO) 9.7 % (13-45); MEAN CORPUSCULAR HEMOGLOBIN 31.5 pg (27.0-33.4); MEAN CORPUSCULAR VOLUME 93 fl (80-97); MONOCYTES % (AUTO) 7.4 % (3-13); RED BLOOD COUNT 2.75 10^6/uL (4.35-5.55); RED CELL DISTRIBUTION WIDTH 13.6 % (11.5-14.0); WHITE BLOOD COUNT 6.5 10^3/uL (4.0-10.5)
--- NOTE | 2017-01-01 06:31 | RADIOLOGY REPORT (SQ) ---
EXAM DESCRIPTION: CHEST SINGLE VIEW COMPLETED DATE/TIME: 01/01/2017 6:20 am REASON FOR STUDY: pna/resp failure COMPARISON: 12/31/2016 EXAM PARAMETERS: NUMBER OF VIEWS: One view TECHNIQUE: Single frontal radiograph of the chest. RADIATION DOSE: N/A LIMITATIONS: None. FINDINGS: TEMPORARY SUPPORT DEVICES:ETT in expected location. NG tube courses below the gremán-diaphr agm in to the stomach. Central venous access catheter tip is in expected location. LUNGS AND PLEURA: No opacities. No masses. No effusions. No pneumothorax. MEDIASTINUM AND HILAR STRUCTURES: No masses. Contour normal. HEART AND VASCULAR STRUCTURES: Heart size normal. Normal vascularity. Aorta normal for age BONES: No acute findings. OTHER: No other significant finding. IMPRESSION: NO ACUTE RADIOGRAPHIC FINDING IN THE CHEST. Lungs clear. SUPPORT DEVICE(S) IN EXPECTED LOCATIONS. TECHNICAL DOCUMENTATION: JOB ID: [id number] [employer]- All Rights Reserved
[2017-01-01 06:33] LABS: BLOOD UREA NITROGEN 43 mg/dL (7-20); CALCIUM 7.7 mg/dL (8.4-10.2); CARBON DIOXIDE 31 mmol/L (22-30); CHLORIDE 107 mmol/L (98-107); CREATININE RESULT 1.56 mg/dL (0.52-1.25); GLUCOSE 156 mg/dL (75-110); POTASSIUM 3.7 mmol/L (3.6-5.0)
[2017-01-01 06:44] LABS: ANION GAP 5 (5-19); SODIUM 142.5 mmol/L (137-145)
[2017-01-01] MEDS: ENOXAPARIN SODIUM INJ 40 MG/0.4 ML DISP.SYRIN SUBCUT SCH (09:13)
--- NOTE | 2017-01-01 09:36 | PDOC PROGRESS REPORT ---
Subjective Progress Note for:: 01/01/17 Subjective:: The patient is on the ventilator Physical Exam Vital Signs: Temp Pulse Resp BP Pulse Ox 99.7 F 77 14 112/52 L 96 12/31/16 21:56 01/01/17 08:20 01/01/17 08:20 01/01/17 05:55 01/01/17 08:20 Pulse Oximeter Continuous Start: 12/24/16 22: 07 Freq: Status: Complete Document 12/24/16 20:00 [facility] [place] (Rec: 12/24/16 22:09 [facility] [place] [email or web address]) Pulse Oximetry Assessment Oxygen Saturation (92-100) 100 Oxygen Flow Rate (L/min) 12 Oxygen Delivery Method Non-Rebreather Fraction of Inspired Oxygen (FIO2) 100 Equipment Usage Initial Set Up Continuous Pulse Oximeter 24 Hour Charge Charge Now Continuous SpO2 Machine # [id number] Intake & Output 12/31/16 01/01/17 01/02/17 06:59 06:59 06:59 Intake Total 2090 2380 Output Total 3320 4220 360 Balance -2821 -1840 -360 Weight 85.7 kg 84.7 kg General appearance: PRESENT: no acute distress, well-developed, well-nourished Eye exam: PRESENT: conjunctiva pink. ABSENT: scleral icterus Ear exam: PRESENT: normal external ear exam Mouth exam: PRESENT: moist, tongue midline Neck exam: ABSENT: JVD Respiratory exam: PRESENT: clear to auscultation annabel. ABSENT: rales, rhonchi, wheezes Cardiovascular exam: PRESENT: RRR, systolic murmur - 3/6 systolic murmur. ABSENT: diastolic murmur, rubs GI/Abdominal exam: PRESENT: normal bowel sounds, soft, other - Ostomy in place in the right lower quadrant.. ABSENT: distended, guarding, mass, organolmegaly , rebound, tenderness Extremities exam: ABSENT: calf tenderness, clubbing, pedal edema Neurological exam: PRESENT: other - Security Shift Supervisor strength is 4 out of 5 in the left upper extremity compared to the right. Left foot also is less strength Psychiatric exam: PRESENT: other - On the ventilator Skin exam: PRESENT: dry, intact, warm. ABSENT: cyanosis, rash Results Laboratory Results: 01/01/17 06:00 01/01/17 06:00 07/12/31/16 01/01/17 14:55 22:00 06:00 WBC 6.5 RBC 2.75 L Hgb 8.7 L Hct 25.5 L MCV 93 MCH 31.5 MCHC 34.0 RDW 13.6 Plt Count 284 Seg Neutrophils % 79.0 H Lymphocytes % 9.7 L Monocytes % 7.4 Eosinophils % 3.1 Basophils % 0.8 Absolute Neutrophils 5.2 Absolute Lymphocytes 0.6 Absolute Monocytes 0.5 Absolute Eosinophils 0.2 Absolute Basophils 0.1 Carbonic Acid HCO3/H2CO3 Ratio ABG pH ABG pCO2 ABG pO2 ABG HCO3 ABG O2 Saturation ABG Base Excess FiO2 Sodium Potassium 4.3 D Chloride Carbon Dioxide Anion Gap BUN Creatinine 1.45 H Est GFR ( Amer) 57 L Est GFR (Non-Af Amer) 47 L Glucose Calcium 01/01/17 01/01/17 06:00 06:00 WBC RBC Hgb Hct MCV MCH MCHC RDW Plt Count Seg Neutrophils % Lymphocytes % Monocytes % Eosinophils % Basophils % Absolute Neutrophils Absolute Lymphocytes Absolute Monocytes Absolute Eosinophils Absolute Basophils Carbonic Acid 1.21 HCO3/H2CO3 Ratio 26:1 ABG pH 7.52 H ABG pCO2 40.1 ABG pO2 75.5 L ABG HCO3 31.9 H ABG O2 Saturation 96.3 ABG Base Excess 8.4 FiO2 25% Sodium 142.5 Potassium 3.7 Chloride 107 Carbon Dioxide 31 H Anion Gap 5 BUN 43 H Creatinine 1.56 H Est GFR ( Amer) 52 L Est GFR (Non-Af Amer) 43 L Glucose 156 H Calcium 7.7 L 12/28/16 12:15 Tracheal Aspirate Gram Stain - Final 12/28/16 12:15 Tracheal Aspirate Sputum Culture - Final Enterobacter Cloacae C.albicans/C.dubliniensis Normal Elise Absent 12/24/16 12/24/16 12/24/16 16:50 18:10 21:50 Creatine Kinase 29 L 72 CK-MB (CK-2) Troponin I 0.036 12/24/16 12/25/16 12/25/16 21:50 00:35 00:35 Creatine Kinase 66 CK-MB (CK-2) Troponin I 0.038 0.044 12/25/16 12/25/16 21:50 21:50 Creatine Kinase 26 L CK-MB (CK-2) 0.59 Troponin I 0.033 Impressions: Chest/Abdomen CTA 12/24/16 00:00 IMPRESSION: 1. NORMAL CTA OF THE CHEST. NO PULMONARY EMBOLI. 2. MODERATE BILATERAL PLEURAL EFFUSIONS. DENSE CONSOLIDATION IN THE LOWER LOBES DUE TO ATELECTASIS. CANNOT EXCLUDE PNEUMONIA. 3. FINDINGS IN THE UPPER ABDOMEN DESCRIBED. POSTOPERATIVE TINY BUBBLES OF FREE AIR. DISTENDED STOMACH AND VISUALIZED SMALL BOWEL. Abdomen/Pelvis CT 12/25/16 00:00 IMPRESSION: 1. SURGICAL CHANGES DESCRIBED. MODERATE DILATION OF THE STOMACH AND MAJORITY OF THE SMALL BOWEL. THERE DOES APPEAR TO BE A TRANSITION IN THE DISTAL SMALL BOWEL BEFORE THE ILEOSTOMY. THIS COULD BE DUE TO ASYMMETRIC POSTOPERATIVE ILEUS. PARTIAL SMALL BOWEL OBSTRUCTION COULD BE PRESENT ALTHOUGH UNUSUAL SO SOON AFTER SURGERY. MODERATE FREE FLUID WELL POSTOPERATIVE FREE AIR. 2. BILATERAL LOWER LOBE CONSOLIDATIONS WITH SMALL -MODERATE PLEURAL EFFUSIONS. 3. OTHER STABLE INCIDENTAL FINDINGS ABOVE. Chest CT 12/28/16 00:00 IMPRESSION: Small bilateral pleural effusions are again identified. The previously described associated airspace consolidation most consistent with atelectatic changes appears improved. There has been interval development of fairly diffuse patchy ground-glass opacities which are slightly more pronounced in the right lung as compared to the left. These could represent areas of pulmonary edema or developing infiltrates. Other findings as noted above KUB X-Ray 12/28/16 00:00 IMPRESSION: Nasogastric tube projects over the lumen of the stomach. Multiple dilated loops of small bowel noted throughout the abdomen have decreased in comparison the prior study. Chest X-Ray 01/01/17 06:00 IMPRESSION: NO ACUTE RADIOGRAPHIC FINDING IN THE CHEST. Lungs clear. SUPPORT DEVICE(S) IN EXPECTED LOCATIONS. Assessment & Plan - Diagnosis (1) Acute hypoxemic respiratory failure Is this a current diagnosis for this admission?: YesPlan: Secondary to aspiration. Patient currently on the ventilator. This is being managed by pulmonary medicine. Significant weakness secondary to malnutrition that is slowing down his ability to wean off the ventilator. We will continue with the TPN and tube feeds as tolerated (2) Aspiration pneumonia Qualifiers: Aspiration pneumonia type: unspecified Laterality: bilateral Lung location: lower lobe of lung Qualified Code(s): J69.0 - Pneumonitis due to inhalation of food and vomit Is this a current diagnosis for this admission?: YesPlan: he has completed a course of therapy for the pneumonia. (3) Sigmoid volvulus Is this a current diagnosis for this admission?: YesPlan: Has had surgical repair (4) Toxic megacolon Is this a current diagnosis for this admission?: YesPlan: Has had surgical repair. Colostomy appears to be functioning properly. The patient is still having high residuals in spite of being started on Reglan. (5) Acute renal failure Qualifiers: Acute renal failure type: unspecified Qualified Code(s): N17.9 - Acute kidney failure, unspecified Is this a current diagnosis for this admission?: YesPlan: Patient has a stable creatinine. followed by nephrology. (6) BPH (benign prostatic hyperplasia) Qualifiers: Lower urinary tract symptom presence: unspecified whether lower urinary tract symptoms present Qualified Code(s): N40.0 - Benign prostatic hyperplasia without lower urinary tract symptoms Is this a current diagnosis for this admission?: Yes (7) Essential hypertension Is this a current diagnosis for this admission?: Yes (8) Hyperlipidemia, acquired Is this a current diagnosis for this admission?: Yes (9) Adynamic ileus Is this a current diagnosis for this admission?: YesPlan: Has been getting TPN. Will increase the amount of TPN. Tube feeds were started however he is having high residuals in spite of being on Reglan. (10) CVA (cerebral vascular accident) Is this a current diagnosis for this admission?: YesPlan: Patient has left upper and lower extremity weakness as compared to the right. I am concerned about the possibility that he may have suffered a CVA. Will get a head CT today to evaluate. - Time Time Spent with patient: 25-34 minutes - Inpatient Certification Medical Necessity: Need Close Monitoring Due to Risk of Patient Decompensation
--- NOTE | 2017-01-01 10:12 | RADIOLOGY REPORT (SQ) ---
EXAM DESCRIPTION: CT HEAD WITHOUT COMPLETED DATE/TIME: 01/01/2017 10:05 am REASON FOR STUDY: left sided weakness K56.2 VOLVULUS COMPARISON: None. TECHNIQUE: Axial images acquired through the brain without intravenous contrast. Images reviewed wi th bone, brain and subdural windows. Images stored on PACS. All CT scanners at this facility use dose modulation, iterative reconstruction, and/or weight based d osing when appropriate to reduce radiation dose to as low as reasonably achievable (ALARA). [facility]: Dose Right [facility]: CareDose [facility]: Dose Right [facility]: Teradose 4D [facility]: iWantoo RADIATION DOSE: Up-to-date CT equipment and radiation dose reduction techniques were employed. CTDIv ol: 64.6 mGy. DLP: 1034 mGy-cm.mGy. LIMITATIONS: None. FINDINGS: VENTRICLES: Prominent. CEREBRUM: No masses. No hemorrhage. No midline shift. Areas of low density in the white matter mos t likely due to chronic micro-vascular ischemic change. No evidence for acute infarction. CEREBELLUM: No masses. No hemorrhage. No alteration of density. No evidence for acute infarction. EXTRAAXIAL SPACES: Age-related involutional change. No fluid collections. No masses. ORBITS AND GLOBE: No intra- or extraconal masses. Normal contour of globe without masses. CALVARIUM: No fracture. PARANASAL SINUSES: Fluid within the sphenoid sinuses and right mastoid air cells compatible with intu bated status. SOFT TISSUES: No mass or hematoma. OTHER: No other significant finding. IMPRESSION: CHRONIC CHANGES OF ATROPHY AND MICROVASCULAR ISCHEMIA. NO ACUTE PROCESS. TECHNICAL DOCUMENTATION: JOB ID: [id number] Quality ID # [id number]: Final reports with documentation of one or more dose reduction techniques (e.g., Au tomated exposure control, adjustment of the mA and/or kV according to patient size, use of iterative reconstruction technique) 2010 [employer]- All Rights Reserved
--- NOTE | 2017-01-01 10:46 | PDOC PROGRESS REPORT ---
Subjective Progress Note for:: 01/01/17 Subjective:: Patient did well overnight hemodynamically stable, no pressors. Still unable to tolerate tube feeds with high residuals despite initiation of Reglan. Minimal vent support This morning patient was noted to have left arm and left foot weakness. He went for a stat CT scan of the head without contrast which was interpreted as showing no acute changes. Physical Exam Vital Signs: Temp Pulse Resp BP Pulse Ox 99.7 F 77 14 112/52 L 100 12/31/16 21:56 01/01/17 08:20 01/01/17 08:20 01/01/17 05:55 01/01/17 10:03 Pulse Oximeter Continuous Start: 12/24/16 22: 07 Freq: Status: Complete Document 12/24/16 [facility] (Rec: 12/24/16 22:09 [facility] [email or web address]) Pulse Oximetry Assessment Oxygen Saturation (92-100) 100 Oxygen Flow Rate (L/min) 12 Oxygen Delivery Method Non-Rebreather Fraction of Inspired Oxygen (FIO2) 100 Equipment Usage Initial Set Up Continuous Pulse Oximeter 24 Hour Charge Charge Now Continuous SpO2 Machine # [id number] Intake & Output 12/31/16 01/01/17 01/02/17 06:59 06:59 06:59 Intake Total 2099 2380 Output Total 4920 4220 360 Balance -2821 -1840 -360 Weight 85.7 kg 84.7 kg General appearance: PRESENT: no acute distress, other - Arouses on the ventilator, and follows simple commands to my voice: He can lift his head off the pillow. GI/Abdominal exam: PRESENT: other - Midline incision healing satisfactorily, all clemente out. Ileostomy putting out robustly Musculoskeletal exam: PRESENT: other - Seems to be neglecting his left side Results Laboratory Results: 01/01/17 06:00 01/01/17 06:00 12/31/16 12/31/16 01/01/17 14:55 22:00 06:00 WBC 6.5 RBC 2.75 L Hgb 8.7 L Hct 25.5 L MCV 93 MCH 31.5 MCHC 34.0 RDW 13.6 Plt Count 284 Seg Neutrophils % 79.0 H Lymphocytes % 9.7 L Monocytes % 7.4 Eosinophils % 3.1 Basophils % 0.8 Absolute Neutrophils 5.2 Absolute Lymphocytes 0.6 Absolute Monocytes 0.5 Absolute Eosinophils 0.2 Absolute Basophils 0.1 Carbonic Acid HCO3/H2CO3 Ratio ABG pH ABG pCO2 ABG pO2 ABG HCO3 ABG O2 Saturation ABG Base Excess FiO2 Sodium Potassium 4.3 D Chloride Carbon Dioxide Anion Gap BUN Creatinine 1.45 H Est GFR ( Amer) 57 L Est GFR (Non-Af Amer) 47 L Glucose Calcium 01/01/17 01/01/17 06:00 06:00 WBC RBC Hgb Hct MCV MCH MCHC RDW Plt Count Seg Neutrophils % Lymphocytes % Monocytes % Eosinophils % Basophils % Absolute Neutrophils Absolute Lymphocytes Absolute Monocytes Absolute Eosinophils Absolute Basophils Carbonic Acid 1.21 HCO3/H2CO3 Ratio 26:1 ABG pH 7.52 H ABG pCO2 40.1 ABG pO2 75.5 L ABG HCO3 31.9 H ABG O2 Saturation 96.3 ABG Base Excess 8.4 FiO2 25% Sodium 142.5 Potassium 3.7 Chloride 107 Carbon Dioxide 31 H Anion Gap 5 BUN 43 H Creatinine 1.56 H Est GFR ( Amer) 52 L Est GFR (Non-Af Amer) 43 L Glucose 156 H Calcium 7.7 L 12/28/16 12:15 Tracheal Aspirate Gram Stain - Final 12/28/16 12:15 Tracheal Aspirate Sputum Culture - Final Enterobacter Cloacae C.albicans/C.dubliniensis Normal Elise Absent 12/24/16 12/24/16 12/24/16 16:50 18:10 21:50 Creatine Kinase 29 L 72 CK-MB (CK-2) Troponin I 0.036 12/24/16 12/25/16 12/25/16 21:50 00:35 00:35 Creatine Kinase 66 CK-MB (CK-2) Troponin I 0.038 0.044 12/25/16 12/25/16 21:50 21:50 Creatine Kinase 26 L CK-MB (CK-2) 0.59 Troponin I 0.033 Impressions: Chest/Abdomen CTA 12/24/16 00:00 IMPRESSION: 1. NORMAL CTA OF THE CHEST. NO PULMONARY EMBOLI. 2. MODERATE BILATERAL PLEURAL EFFUSIONS. DENSE CONSOLIDATION IN THE LOWER LOBES DUE TO ATELECTASIS. CANNOT EXCLUDE PNEUMONIA. 3. FINDINGS IN THE UPPER ABDOMEN DESCRIBED. POSTOPERATIVE TINY BUBBLES OF FREE AIR. DISTENDED STOMACH AND VISUALIZED SMALL BOWEL. Abdomen/Pelvis CT 12/25/16 00:00 IMPRESSION: 1. SURGICAL CHANGES DESCRIBED. MODERATE DILATION OF THE STOMACH AND MAJORITY OF THE SMALL BOWEL. THERE DOES APPEAR TO BE A TRANSITION IN THE DISTAL SMALL BOWEL BEFORE THE ILEOSTOMY. THIS COULD BE DUE TO ASYMMETRIC POSTOPERATIVE ILEUS. PARTIAL SMALL BOWEL OBSTRUCTION COULD BE PRESENT ALTHOUGH UNUSUAL SO SOON AFTER SURGERY. MODERATE FREE FLUID WELL POSTOPERATIVE FREE AIR. 2. BILATERAL LOWER LOBE CONSOLIDATIONS WITH SMALL -MODERATE PLEURAL EFFUSIONS. 3. OTHER STABLE INCIDENTAL FINDINGS ABOVE. Chest CT 12/28/16 00:00 IMPRESSION: Small bilateral pleural effusions are again identified. The previously described associated airspace consolidation most consistent with atelectatic changes appears improved. There has been interval development of fairly diffuse patchy ground-glass opacities which are slightly more pronounced in the right lung as compared to the left. These could represent areas of pulmonary edema or developing infiltrates. Other findings as noted above KUB X-Ray 12/28/16 00:00 IMPRESSION: Nasogastric tube projects over the lumen of the stomach. Multiple dilated loops of small bowel noted throughout the abdomen have decreased in comparison the prior study. Head CT 01/01/17 00:00 IMPRESSION: CHRONIC CHANGES OF ATROPHY AND MICROVASCULAR ISCHEMIA. NO ACUTE PROCESS. Chest X-Ray 01/01/17 06:00 IMPRESSION: NO ACUTE RADIOGRAPHIC FINDING IN THE CHEST. Lungs clear. SUPPORT DEVICE(S) IN EXPECTED LOCATIONS. 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 Negative upper endoscopy 4 days ago. Plan: 1. Attempt another weaning trial today 2. Hold on tube feeds; continue TPN. 3. May need to replace central line tomorrow as it is been in 1 week.
--- NOTE | 2017-01-01 12:50 | PDOC PROGRESS REPORT ---
Subjective Progress Note for:: 01/01/17 Subjective:: Patient on ps-cpap x 5 hrs Physical Exam Vital Signs: Temp Pulse Resp BP Pulse Ox 99.7 F 74 15 146/65 H 100 12/31/16 21:56 01/01/17 10:00 01/01/17 11:09 01/01/17 11:09 01/01/17 11:09 Pulse Oximeter Continuous Start: 12/24/16 22: 07 Freq: Status: Complete Document 12/24/16 20:00 [facility] (Rec: 12/24/16 22:09 [facility] [email or web address]) Pulse Oximetry Assessment Oxygen Saturation (92-100) 100 Oxygen Flow Rate (L/min) 12 Oxygen Delivery Method Non-Rebreather Fraction of Inspired Oxygen (FIO2) 100 Equipment Usage Initial Set Up Continuous Pulse Oximeter 24 Hour Charge Charge Now Continuous SpO2 Machine # [id number] Intake & Output 12/31/16 01/01/17 01/02/17 06:59 06:59 06:59 Intake Total 1754 9610 Output Total 0412 4220 745 Balance -2821 -1840 -745 Weight 85.7 kg 84.7 kg General appearance: PRESENT: no acute distress, cooperative, disheveled, thin, well-developed Head exam: PRESENT: atraumatic, normocephalic Eye exam: PRESENT: conjunctiva pale, EOMI Mouth exam: PRESENT: dry mucosa, neck supple, tongue midline, other - ET tube Neck exam: ABSENT: carotid bruit, JVD, lymphadenopathy, thyromegaly Respiratory exam: PRESENT: decreased breath sounds, prolonged expiratory phas, rhonchi, tachypnea, unlabored Cardiovascular exam: PRESENT: RRR, +S1, +S2 Pulses: PRESENT: normal radial pulses GI/Abdominal exam: PRESENT: other - ostomy;s/p recent surgery Rectal exam: PRESENT: deferred Gentrourinary exam: PRESENT: indwelling catheter Musculoskeletal exam: PRESENT: normal inspection Neurological exam: PRESENT: awake Psychiatric exam: PRESENT: flat affect Skin exam: PRESENT: dry, warm Results Laboratory Results: 01/01/17 06:00 01/01/17 06:00 12/31/16 12/31/16 01/01/17 14:55 22:00 06:00 WBC 6.5 RBC 2.75 L Hgb 8.7 L Hct 25.5 L MCV 93 MCH 31.5 MCHC 34.0 RDW 13.6 Plt Count 284 Seg Neutrophils % 79.0 H Lymphocytes % 9.7 L Monocytes % 7.4 Eosinophils % 3.1 Basophils % 0.8 Absolute Neutrophils 5.2 Absolute Lymphocytes 0.6 Absolute Monocytes 0.5 Absolute Eosinophils 0.2 Absolute Basophils 0.1 Carbonic Acid HCO3/H2CO3 Ratio ABG pH ABG pCO2 ABG pO2 ABG HCO3 ABG O2 Saturation ABG Base Excess FiO2 Sodium Potassium 4.3 D Chloride Carbon Dioxide Anion Gap BUN Creatinine 1.45 H Est GFR ( Amer) 57 L Est GFR (Non-Af Amer) 47 L Glucose Calcium 01/01/17 01/01/17 06:00 06:00 WBC RBC Hgb Hct MCV MCH MCHC RDW Plt Count Seg Neutrophils % Lymphocytes % Monocytes % Eosinophils % Basophils % Absolute Neutrophils Absolute Lymphocytes Absolute Monocytes Absolute Eosinophils Absolute Basophils Carbonic Acid 1.21 HCO3/H2CO3 Ratio 26:1 ABG pH 7.52 H ABG pCO2 40.1 ABG pO2 75.5 L ABG HCO3 31.9 H ABG O2 Saturation 96.3 ABG Base Excess 8.4 FiO2 25% Sodium 142.5 Potassium 3.7 Chloride 107 Carbon Dioxide 31 H Anion Gap 5 BUN 43 H Creatinine 1.56 H Est GFR ( Amer) 52 L Est GFR (Non-Af Amer) 43 L Glucose 156 H Calcium 7.7 L 12/28/16 12:15 Tracheal Aspirate Gram Stain - Final 12/28/16 12:15 Tracheal Aspirate Sputum Culture - Final Enterobacter Cloacae C.albicans/C.dubliniensis Normal Elise Absent 12/24/16 12/24/16 12/24/16 16:50 18:10 21:50 Creatine Kinase 29 L 72 CK-MB (CK-2) Troponin I 0.036 12/24/16 12/25/16 12/25/16 21:50 00:35 00:35 Creatine Kinase 66 CK-MB (CK-2) Troponin I 0.038 0.044 12/25/16 12/25/16 21:50 21:50 Creatine Kinase 26 L CK-MB (CK-2) 0.59 Troponin I 0.033 Impressions: Chest/Abdomen CTA 12/24/16 00:00 IMPRESSION: 1. NORMAL CTA OF THE CHEST. NO PULMONARY EMBOLI. 2. MODERATE BILATERAL PLEURAL EFFUSIONS. DENSE CONSOLIDATION IN THE LOWER LOBES DUE TO ATELECTASIS. CANNOT EXCLUDE PNEUMONIA. 3. FINDINGS IN THE UPPER ABDOMEN DESCRIBED. POSTOPERATIVE TINY BUBBLES OF FREE AIR. DISTENDED STOMACH AND VISUALIZED SMALL BOWEL. Abdomen/Pelvis CT 12/25/16 00:00 IMPRESSION: 1. SURGICAL CHANGES DESCRIBED. MODERATE DILATION OF THE STOMACH AND MAJORITY OF THE SMALL BOWEL. THERE DOES APPEAR TO BE A TRANSITION IN THE DISTAL SMALL BOWEL BEFORE THE ILEOSTOMY. THIS COULD BE DUE TO ASYMMETRIC POSTOPERATIVE ILEUS. PARTIAL SMALL BOWEL OBSTRUCTION COULD BE PRESENT ALTHOUGH UNUSUAL SO SOON AFTER SURGERY. MODERATE FREE FLUID WELL POSTOPERATIVE FREE AIR. 2. BILATERAL LOWER LOBE CONSOLIDATIONS WITH SMALL -MODERATE PLEURAL EFFUSIONS. 3. OTHER STABLE INCIDENTAL FINDINGS ABOVE. Chest CT 12/28/16 00:00 IMPRESSION: Small bilateral pleural effusions are again identified. The previously described associated airspace consolidation most consistent with atelectatic changes appears improved. There has been interval development of fairly diffuse patchy ground-glass opacities which are slightly more pronounced in the right lung as compared to the left. These could represent areas of pulmonary edema or developing infiltrates. Other findings as noted above KUB X-Ray 12/28/16 00:00 IMPRESSION: Nasogastric tube projects over the lumen of the stomach. Multiple dilated loops of small bowel noted throughout the abdomen have decreased in comparison the prior study. Head CT 01/01/17 00:00 IMPRESSION: CHRONIC CHANGES OF ATROPHY AND MICROVASCULAR ISCHEMIA. NO ACUTE PROCESS. Chest X-Ray 01/01/17 06:00 IMPRESSION: NO ACUTE RADIOGRAPHIC FINDING IN THE CHEST. Lungs clear. SUPPORT DEVICE(S) IN EXPECTED LOCATIONS. Assessment & Plan - Diagnosis (1) Acute renal failure Qualifiers: Acute renal failure type: unspecified Qualified Code(s): N17.9 - Acute kidney failure, unspecified Is this a current diagnosis for this admission?: YesPlan: metabolic acidosis (2) Acute respiratory failure with hypoxia and hypercapnia Is this a current diagnosis for this admission?: YesPlan: on ps-cpap x 5 hrs still concerned with WOB discussed with surgery will extubate to bi-pap (3) Aspiration into respiratory tract Is this a current diagnosis for this admission?: YesPlan: + cultues ,afebrile wbc normal off abx (4) Septic shock Is this a current diagnosis for this admission?: No - Time Critical Time spent with patient: 35 or more minutes - extubation discussion with (surgery) Dr CUEVA;WITH RN X 2 AND PATIENT EXTUBATE TO BIPAP
[2017-01-02] MEDS: FUROSEMIDE INJ/PF 20 MG/2 ML SDV IV SCH ×3 (06:20→22:56)
[2017-01-02] MEDS: METOCLOPRAMIDE HCL INJ/PF 10 MG/2 ML SDV IV SCH ×4 (06:21→23:38)
[2017-01-02 06:47] LABS: ARTERIAL BLOOD BASE EXCESS 6.5 mmol/L; ARTERIAL BLOOD O2 SATURATION 98.1 % (94-98)
[2017-01-02 06:49] LABS: ABSOLUTE BASOPHILS # (AUTO) 0.1 10^3/uL (0.0-0.2); ABSOLUTE EOSINOPHILS # (AUTO) 0.2 10^3/uL (0.0-0.6); ABSOLUTE LYMPHOCYTES (AUTO) 0.5 10^3/uL (0.5-4.7); ABSOLUTE MONOCYTES (AUTO) 0.4 10^3/uL (0.1-1.4); ABSOLUTE NEUT (AUTO) 5.5 10^3/uL (1.7-8.2); BASOPHILS % (AUTO) 0.8 % (0-2); HEMATOCRIT 29.6 % (37.9-51.0); HEMOGLOBIN 9.9 g/dL (13.5-17.0); HGB HCT DIFFERENCE 0.1; LYMPHOCYTES % (AUTO) 7.1 % (13-45); MEAN CORPUSCULAR HEMOGLOBIN 31.5 pg (27.0-33.4); MEAN CORPUSCULAR HGB CONC 33.4 g/dL (32.0-36.0); MEAN CORPUSCULAR VOLUME 94 fl (80-97); MONOCYTES % (AUTO) 6.4 % (3-13); RED BLOOD COUNT 3.14 10^6/uL (4.35-5.55); RED CELL DISTRIBUTION WIDTH 13.6 % (11.5-14.0); SEGMENTED NEUTROPHILS % (AUTO) 82.7 % (42-78); WHITE BLOOD COUNT 6.7 10^3/uL (4.0-10.5)
[2017-01-02 07:02] LABS: ALANINE AMINOTRANSFERASE 54 U/L (21-72); ALKALINE PHOSPHATASE 152 U/L (38-126); ASPARTATE AMINO TRANSFERASE 35 U/L (17-59); BILIRUBIN,DIRECT 0.3 mg/dL (0.0-0.4); BILIRUBIN,TOTAL 0.3 mg/dL (0.2-1.3); BLOOD UREA NITROGEN 41 mg/dL (7-20); CREATININE RESULT 1.42 mg/dL (0.52-1.25); GLUCOSE 175 mg/dL (75-110); PHOSPHORUS 3.9 mg/dL (2.5-4.5); POTASSIUM 4.1 mmol/L (3.6-5.0); TOTAL PROTEIN 4.7 g/dL (6.3-8.2); TRIGLYCERIDES 75 mg/dL (<150)
[2017-01-02 07:08] LABS: PROTHROMBIN TIME 13.9 SEC (11.4-15.4)
[2017-01-02 07:09] LABS: PREALBUMIN 15.4 mg/dL (17.6-36.0)
--- NOTE | 2017-01-02 07:11 | RADIOLOGY REPORT (SQ) ---
EXAM DESCRIPTION: CHEST SINGLE VIEW COMPLETED DATE/TIME: 01/02/2017 6:13 am REASON FOR STUDY: PNA/RESP FAIL COMPARISON: 01/01/2017 NUMBER OF VIEWS: One view. TECHNIQUE: Single frontal radiographic image of the chest acquired. LIMITATIONS: None. FINDINGS: LUNGS AND PLEURA: Clear. No pneumothorax. MEDIASTINUM AND HEART: Stable heart size and mediastinal structures. SUPPORT DEVICES: Unchanged position of right-sided central line and nasogastric tube. Endotracheal t ube has been removed. BONY STRUCTURES: No acute findings. HARDWARE: None. OTHER: No other significant finding. IMPRESSION: Stable chest status post extubation. No pneumothorax.
[2017-01-02 07:20] LABS: CARBON DIOXIDE 34 mmol/L (22-30); CHLORIDE 106 mmol/L (98-107); SODIUM 144.4 mmol/L (137-145)
[2017-01-02 07:22] LABS: ANION GAP 4 (5-19)
--- NOTE | 2017-01-02 09:58 | PDOC PROGRESS REPORT ---
Subjective Progress Note for:: 01/02/17 Subjective:: Was extubated yesterday and has been on BiPAP. He continues to have high residuals in his NG Physical Exam Vital Signs: Temp Pulse Resp BP Pulse Ox 99.0 F 82 20 142/62 H 97 01/02/17 06:00 01/02/17 08:00 01/02/17 08:00 01/02/17 06:09 01/02/17 08:00 Pulse Oximeter Continuous Start: 12/24/16 22: 07 Freq: Status: Complete Document 12/24/16 20:00 [facility] (Rec: 12/24/16 22:09 [facility] [email or web address]) Pulse Oximetry Assessment Oxygen Saturation (92-100) 100 Oxygen Flow Rate (L/min) 12 Oxygen Delivery Method Non-Rebreather Fraction of Inspired Oxygen (FIO2) 100 Equipment Usage Initial Set Up Continuous Pulse Oximeter 24 Hour Charge Charge Now Continuous SpO2 Machine # [id number] Intake & Output 01/01/17 01/02/17 01/03/17 06:59 06:59 06:59 Intake Total 2380 1344 Output Total 4220 4295 275 Balance -1840 -2951 -275 Weight 84.7 kg 81.5 kg General appearance: PRESENT: no acute distress Eye exam: PRESENT: conjunctiva pink. ABSENT: scleral icterus Mouth exam: PRESENT: moist, tongue midline Neck exam: ABSENT: carotid bruit, JVD, lymphadenopathy, thyromegaly Respiratory exam: PRESENT: rhonchi - Rhonchi bilaterally.. ABSENT: rales, wheezes Cardiovascular exam: PRESENT: RRR, systolic murmur - 3/6 systolic murmur. ABSENT: diastolic murmur, rubs GI/Abdominal exam: PRESENT: normal bowel sounds, soft, other - Ostomy in the right lower abdomen. ABSENT: distended, guarding, mass, organolmegaly, rebound , tenderness Extremities exam: PRESENT: full ROM. ABSENT: calf tenderness, clubbing, pedal edema Neurological exam: PRESENT: awake, CN II-XII grossly intact. ABSENT: motor sensory deficit Psychiatric exam: PRESENT: flat affect Skin exam: PRESENT: dry, intact, warm. ABSENT: cyanosis, rash Results Laboratory Results: 01/02/17 06:15 01/02/17 06:15 01/02/17 01/02/17 01/02/17 06:15 06:15 06:15 WBC 6.7 RBC 3.14 L Hgb 9.9 L Hct 29.6 L MCV 94 MCH 31.5 MCHC 33.4 RDW 13.6 Plt Count 319 Seg Neutrophils % 82.7 H Lymphocytes % 7.1 L Monocytes % 6.4 Eosinophils % 3.0 Basophils % 0.8 Absolute Neutrophils 5.5 Absolute Lymphocytes 0.5 Absolute Monocytes 0.4 Absolute Eosinophils 0.2 Absolute Basophils 0.1 Carbonic Acid 1.35 HCO3/H2CO3 Ratio 23:1 ABG pH 7.46 H ABG pCO2 45.0 ABG pO2 107.6 H ABG HCO3 31.1 H ABG O2 Saturation 98.1 H ABG Base Excess 6.5 FiO2 25% Sodium 144.4 Potassium 4.1 Chloride 106 Carbon Dioxide 34 H Anion Gap 4 L BUN 41 H Creatinine 1.42 H Est GFR ( Amer) 58 L Est GFR (Non-Af Amer) 48 L Glucose 175 H Calcium 8.0 L Phosphorus 3.9 Magnesium 2.0 Total Bilirubin 0.3 AST 35 ALT 54 Alkaline Phosphatase 152 H Total Protein 4.7 L Albumin 2.0 L Prealbumin 15.4 L Triglycerides 75 12/24/16 12/24/16 12/24/16 16:50 18:10 21:50 Creatine Kinase 29 L 72 CK-MB (CK-2) Troponin I 0.036 12/24/16 12/25/16 12/25/16 21:50 00:35 00:35 Creatine Kinase 66 CK-MB (CK-2) Troponin I 0.038 0.044 12/25/16 12/25/16 21:50 21:50 Creatine Kinase 26 L CK-MB (CK-2) 0.59 Troponin I 0.033 Impressions: Chest/Abdomen CTA 12/24/16 00:00 IMPRESSION: 1. NORMAL CTA OF THE CHEST. NO PULMONARY EMBOLI. 2. MODERATE BILATERAL PLEURAL EFFUSIONS. DENSE CONSOLIDATION IN THE LOWER LOBES DUE TO ATELECTASIS. CANNOT EXCLUDE PNEUMONIA. 3. FINDINGS IN THE UPPER ABDOMEN DESCRIBED. POSTOPERATIVE TINY BUBBLES OF FREE AIR. DISTENDED STOMACH AND VISUALIZED SMALL BOWEL. Abdomen/Pelvis CT 12/25/16 00:00 IMPRESSION: 1. SURGICAL CHANGES DESCRIBED. MODERATE DILATION OF THE STOMACH AND MAJORITY OF THE SMALL BOWEL. THERE DOES APPEAR TO BE A TRANSITION IN THE DISTAL SMALL BOWEL BEFORE THE ILEOSTOMY. THIS COULD BE DUE TO ASYMMETRIC POSTOPERATIVE ILEUS. PARTIAL SMALL BOWEL OBSTRUCTION COULD BE PRESENT ALTHOUGH UNUSUAL SO SOON AFTER SURGERY. MODERATE FREE FLUID WELL POSTOPERATIVE FREE AIR. 2. BILATERAL LOWER LOBE CONSOLIDATIONS WITH SMALL -MODERATE PLEURAL EFFUSIONS. 3. OTHER STABLE INCIDENTAL FINDINGS ABOVE. Chest CT 12/28/16 00:00 IMPRESSION: Small bilateral pleural effusions are again identified. The previously described associated airspace consolidation most consistent with atelectatic changes appears improved. There has been interval development of fairly diffuse patchy ground-glass opacities which are slightly more pronounced in the right lung as compared to the left. These could represent areas of pulmonary edema or developing infiltrates. Other findings as noted above KUB X-Ray 12/28/16 00:00 IMPRESSION: Nasogastric tube projects over the lumen of the stomach. Multiple dilated loops of small bowel noted throughout the abdomen have decreased in comparison the prior study. Head CT 01/01/17 00:00 IMPRESSION: CHRONIC CHANGES OF ATROPHY AND MICROVASCULAR ISCHEMIA. NO ACUTE PROCESS. Chest X-Ray 01/02/17 06:00 IMPRESSION: Stable chest status post extubation. No pneumothorax. Assessment & Plan - Diagnosis (1) Acute hypoxemic respiratory failure Is this a current diagnosis for this admission?: YesPlan: Secondary to aspiration. Patient was extubated yesterday and is doing well on BiPAP. This is being managed by pulmonary medicine. Significant weakness secondary to malnutrition has been affecting his respiratory status. We will continue with the TPN and tube feeds as tolerated (2) Aspiration pneumonia Qualifiers: Aspiration pneumonia type: unspecified Laterality: bilateral Lung location: lower lobe of lung Qualified Code(s): J69.0 - Pneumonitis due to inhalation of food and vomit Is this a current diagnosis for this admission?: YesPlan: he has completed a course of therapy for the pneumonia. (3) Sigmoid volvulus Is this a current diagnosis for this admission?: YesPlan: Has had surgical repair (4) Toxic megacolon Is this a current diagnosis for this admission?: YesPlan: Has had surgical repair. Colostomy appears to be functioning properly. The patient is still having high residuals in spite of being started on Reglan. (5) Acute renal failure Qualifiers: Acute renal failure type: unspecified Qualified Code(s): N17.9 - Acute kidney failure, unspecified Is this a current diagnosis for this admission?: YesPlan: Patient has a stable creatinine. followed by nephrology. (6) BPH (benign prostatic hyperplasia) Qualifiers: Lower urinary tract symptom presence: unspecified whether lower urinary tract symptoms present Qualified Code(s): N40.0 - Benign prostatic hyperplasia without lower urinary tract symptoms Is this a current diagnosis for this admission?: Yes (7) Essential hypertension Is this a current diagnosis for this admission?: Yes (8) Hyperlipidemia, acquired Is this a current diagnosis for this admission?: Yes (9) Adynamic ileus Is this a current diagnosis for this admission?: YesPlan: Has been getting TPN. Will increase the amount of TPN. Tube feeds were started however he is having high residuals in spite of being on Reglan. (10) CVA (cerebral vascular accident) Is this a current diagnosis for this admission?: YesPlan: Patient had left upper and lower extremity weakness as compared to the right. He was done and showed no evidence for CVA. Patient's strength has improved. 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 (12) Hypotension Qualifiers: Hypotension type: unspecified hypotension type Qualified Code(s): I95.9 - Hypotension, unspecified Is this a current diagnosis for this admission?: YesPlan: Resolved - Time Time Spent with patient: 25-34 minutes - Inpatient Certification Medical Necessity: Need Close Monitoring Due to Risk of Patient Decompensation, Need For IV Fluids - Plan Summary Plan Summary: Hospitalist service has taken over as primary attending for this patient as his surgical problems have resolved.
[2017-01-02] MEDS: ENOXAPARIN SODIUM INJ 40 MG/0.4 ML DISP.SYRIN SUBCUT SCH (10:12)
[2017-01-02] MEDS ORDERED: SUCCINYLCHOLINE CHLORIDE INJ 200 MG/10 ML VIAL ONE (11:24)
[2017-01-02] MEDS: AMINO ACIDS 5%/D25W 1,000 ML IV PRN (13:05)
--- NOTE | 2017-01-02 14:43 | PDOC PROGRESS REPORT ---
Subjective Progress Note for:: 01/02/17 Subjective:: 24 hours status post extubation remains on BiPAP currently without distress Physical Exam Vital Signs: Temp Pulse Resp BP Pulse Ox 99.0 F 84 16 142/62 H 96 01/02/17 06:00 01/02/17 07:56 01/02/17 06:09 01/02/17 06:09 01/02/17 06:09 Pulse Oximeter Continuous Start: 12/24/16 22: 07 Freq: Status: Complete Document 12/24/16 20:00 [facility] (Rec: 12/24/16 22:09 [facility] [email or web address]) Pulse Oximetry Assessment Oxygen Saturation (92-100) 100 Oxygen Flow Rate (L/min) 12 Oxygen Delivery Method Non-Rebreather Fraction of Inspired Oxygen (FIO2) 100 Equipment Usage Initial Set Up Continuous Pulse Oximeter 24 Hour Charge Charge Now Continuous SpO2 Machine # [id number] Intake & Output 01/01/17 01/02/17 01/03/17 06:59 06:59 06:59 Intake Total 2380 1344 Output Total 4220 4295 Balance -1840 -2951 Weight 84.7 kg 81.5 kg General appearance: PRESENT: no acute distress, disheveled, thin, well-developed Head exam: PRESENT: atraumatic, normocephalic Eye exam: PRESENT: conjunctiva pale, EOMI Mouth exam: PRESENT: dry mucosa, neck supple, tongue midline Neck exam: ABSENT: carotid bruit, JVD, lymphadenopathy, thyromegaly Respiratory exam: PRESENT: decreased breath sounds, prolonged expiratory phas, rales, rhonchi, symmetrical Cardiovascular exam: PRESENT: RRR, +S1, +S2, other - 2/6 holosystolic murmur Pulses: PRESENT: normal radial pulses GI/Abdominal exam: PRESENT: diminished bowel sounds, other - s/p surgery;ostomy Rectal exam: PRESENT: deferred Gentrourinary exam: PRESENT: indwelling catheter Musculoskeletal exam: PRESENT: normal inspection Neurological exam: PRESENT: awake Psychiatric exam: PRESENT: flat affect Skin exam: PRESENT: dry, warm Results Laboratory Results: 01/02/17 06:15 01/02/17 06:15 01/02/17 01/02/17 01/02/17 06:15 06:15 06:15 WBC 6.7 RBC 3.14 L Hgb 9.9 L Hct 29.6 L MCV 94 MCH 31.5 MCHC 33.4 RDW 13.6 Plt Count 319 Seg Neutrophils % 82.7 H Lymphocytes % 7.1 L Monocytes % 6.4 Eosinophils % 3.0 Basophils % 0.8 Absolute Neutrophils 5.5 Absolute Lymphocytes 0.5 Absolute Monocytes 0.4 Absolute Eosinophils 0.2 Absolute Basophils 0.1 Carbonic Acid 1.35 HCO3/H2CO3 Ratio 23:1 ABG pH 7.46 H ABG pCO2 45.0 ABG pO2 107.6 H ABG HCO3 31.1 H ABG O2 Saturation 98.1 H ABG Base Excess 6.5 FiO2 25% Sodium 144.4 Potassium 4.1 Chloride 106 Carbon Dioxide 34 H Anion Gap 4 L BUN 41 H Creatinine 1.42 H Est GFR ( Amer) 58 L Est GFR (Non-Af Amer) 48 L Glucose 175 H Calcium 8.0 L Phosphorus 3.9 Magnesium 2.0 Total Bilirubin 0.3 AST 35 ALT 54 Alkaline Phosphatase 152 H Total Protein 4.7 L Albumin 2.0 L Prealbumin 15.4 L Triglycerides 75 12/24/16 12/24/16 12/24/16 16:50 18:10 21:50 Creatine Kinase 29 L 72 CK-MB (CK-2) Troponin I 0.036 12/24/16 12/25/16 12/25/16 21:50 00:35 00:35 Creatine Kinase 66 CK-MB (CK-2) Troponin I 0.038 0.044 12/25/16 12/25/16 21:50 21:50 Creatine Kinase 26 L CK-MB (CK-2) 0.59 Troponin I 0.033 Impressions: Chest/Abdomen CTA 12/24/16 00:00 IMPRESSION: 1. NORMAL CTA OF THE CHEST. NO PULMONARY EMBOLI. 2. MODERATE BILATERAL PLEURAL EFFUSIONS. DENSE CONSOLIDATION IN THE LOWER LOBES DUE TO ATELECTASIS. CANNOT EXCLUDE PNEUMONIA. 3. FINDINGS IN THE UPPER ABDOMEN DESCRIBED. POSTOPERATIVE TINY BUBBLES OF FREE AIR. DISTENDED STOMACH AND VISUALIZED SMALL BOWEL. Abdomen/Pelvis CT 12/25/16 00:00 IMPRESSION: 1. SURGICAL CHANGES DESCRIBED. MODERATE DILATION OF THE STOMACH AND MAJORITY OF THE SMALL BOWEL. THERE DOES APPEAR TO BE A TRANSITION IN THE DISTAL SMALL BOWEL BEFORE THE ILEOSTOMY. THIS COULD BE DUE TO ASYMMETRIC POSTOPERATIVE ILEUS. PARTIAL SMALL BOWEL OBSTRUCTION COULD BE PRESENT ALTHOUGH UNUSUAL SO SOON AFTER SURGERY. MODERATE FREE FLUID WELL POSTOPERATIVE FREE AIR. 2. BILATERAL LOWER LOBE CONSOLIDATIONS WITH SMALL -MODERATE PLEURAL EFFUSIONS. 3. OTHER STABLE INCIDENTAL FINDINGS ABOVE. Chest CT 12/28/16 00:00 IMPRESSION: Small bilateral pleural effusions are again identified. The previously described associated airspace consolidation most consistent with atelectatic changes appears improved. There has been interval development of fairly diffuse patchy ground-glass opacities which are slightly more pronounced in the right lung as compared to the left. These could represent areas of pulmonary edema or developing infiltrates. Other findings as noted above KUB X-Ray 12/28/16 00:00 IMPRESSION: Nasogastric tube projects over the lumen of the stomach. Multiple dilated loops of small bowel noted throughout the abdomen have decreased in comparison the prior study. Head CT 01/01/17 00:00 IMPRESSION: CHRONIC CHANGES OF ATROPHY AND MICROVASCULAR ISCHEMIA. NO ACUTE PROCESS. Chest X-Ray 01/02/17 06:00 IMPRESSION: Stable chest status post extubation. No pneumothorax. Assessment & Plan - Diagnosis (1) Acute renal failure Qualifiers: Acute renal failure type: unspecified Qualified Code(s): N17.9 - Acute kidney failure, unspecified Is this a current diagnosis for this admission?: YesPlan: Trending towards improvement (2) Acute respiratory failure with hypoxia and hypercapnia Is this a current diagnosis for this admission?: YesPlan: Stable on BiPAP (3) Aspiration into respiratory tract Is this a current diagnosis for this admission?: Yes (4) Septic shock Is this a current diagnosis for this admission?: No - Time Critical Time spent with patient: 25-34 minutes
[2017-01-02] MEDS: INSULIN REG, HUMAN 100 UNIT/ML 3 ML VIAL (PYX) SUBCUT PRN ×2 (17:09→23:39)
[2017-01-02] MEDS ORDERED: FUROSEMIDE INJ/PF 40 MG/4 ML SDV ONE (18:26)
[2017-01-02] MEDS ORDERED: METOPROLOL TARTRATE PF/INJ 5 MG/5 ML SDV IV ONE (18:34)
[2017-01-02] MEDS ORDERED: PHENYLEPHRINE HCL INJ/PF 10 MG/1 ML SDV ONE (18:52)
[2017-01-02] MEDS: DEXTROSE 5%-WATER 250 ML with PHENYLEPHRINE HCL 40 MG IV PRN ×2 (19:00)
--- NOTE | 2017-01-02 19:02 | Progress Note ---
Provider Note Provider Note: By nursing staff this evening that the patient was having some increased heart rate as well as increased respiratory rate. Patient was tachycardic with a heart rate of 140. He was given 5 Lopressor. The patient appears to be tired from the work of breathing. Patient was intubated by anesthesia. He did receive propofol became slightly hypotensive with systolic blood pressure of 77. Patient will be started on Gonsalo-Synephrine. Chest x-ray has been ordered. She will be ordered. He was placed back on the ventilator.
--- NOTE | 2017-01-02 19:12 | RADIOLOGY REPORT (SQ) ---
EXAM DESCRIPTION: CHEST SINGLE VIEW COMPLETED DATE/TIME: 01/02/2017 7:02 pm REASON FOR STUDY: ETT placement COMPARISON: 01/02/2017 EXAM PARAMETERS: NUMBER OF VIEWS: One view TECHNIQUE: Single frontal radiograph of the chest. RADIATION DOSE: N/A LIMITATIONS: None. FINDINGS: TEMPORARY SUPPORT DEVICES:ETT in expected location. NG tube courses below the germán-diaphr agm in to the stomach. Central venous access catheter tip is in expected location. LUNGS AND PLEURA: No opacities. No masses. No effusions. No pneumothorax. MEDIASTINUM AND HILAR STRUCTURES: No masses. Contour normal. HEART AND VASCULAR STRUCTURES: Heart size normal. Normal vascularity. Aorta normal for age BONES: No acute findings. OTHER: No other significant finding. IMPRESSION: NO ACUTE RADIOGRAPHIC FINDING IN THE CHEST. SUPPORT DEVICE(S) IN EXPECTED LOCATIONS. TECHNICAL DOCUMENTATION: JOB ID: [id number] [employer]- All Rights Reserved
--- NOTE | 2017-01-02 20:04 | PDOC PROGRESS REPORT ---
Subjective Subjective:: patient intubated this afternoon, but awake, appears cachectic Physical Exam Vital Signs: Temp Pulse Resp BP Pulse Ox 99 F 92 14 123/53 L 100 01/02/17 18:00 01/02/17 15:53 01/02/17 19:18 01/02/17 19:18 01/02/17 19:18 Pulse Oximeter Continuous Start: 12/24/16 22: 07 Freq: Status: Complete Document 12/24/16 20:00 [facility] (Rec: 12/24/16 22:09 [facility] [email or web address]) Pulse Oximetry Assessment Oxygen Saturation (92-100) 100 Oxygen Flow Rate (L/min) 12 Oxygen Delivery Method Non-Rebreather Fraction of Inspired Oxygen (FIO2) 100 Equipment Usage Initial Set Up Continuous Pulse Oximeter 24 Hour Charge Charge Now Continuous SpO2 Machine # [id number] Intake & Output 01/01/17 01/02/17 01/03/17 06:59 06:59 06:59 Intake Total 2380 1344 826 Output Total 4228 8575 1550 Banner -1840 -2951 -724 Weight 84.7 kg 81.5 kg General appearance: PRESENT: mild distress, other - poorly nourished Respiratory exam: PRESENT: clear to auscultation annabel Cardiovascular exam: PRESENT: RRR GI/Abdominal exam: PRESENT: soft, other - ileostomy pink with liquid stools; midline incision healed Results Laboratory Results: 01/02/17 06:15 01/02/17 06:15 01/02/17 01/02/17 01/02/17 06:15 06:15 06:15 WBC 6.7 RBC 3.14 L Hgb 9.9 L Hct 29.6 L MCV 94 MCH 31.5 MCHC 33.4 RDW 13.6 Plt Count 319 Seg Neutrophils % 82.7 H Lymphocytes % 7.1 L Monocytes % 6.4 Eosinophils % 3.0 Basophils % 0.8 Absolute Neutrophils 5.5 Absolute Lymphocytes 0.5 Absolute Monocytes 0.4 Absolute Eosinophils 0.2 Absolute Basophils 0.1 Carbonic Acid 1.35 HCO3/H2CO3 Ratio 23:1 ABG pH 7.46 H ABG pCO2 45.0 ABG pO2 107.6 H ABG HCO3 31.1 H ABG O2 Saturation 98.1 H ABG Base Excess 6.5 FiO2 25% Sodium 144.4 Potassium 4.1 Chloride 106 Carbon Dioxide 34 H Anion Gap 4 L BUN 41 H Creatinine 1.42 H Est GFR ( Amer) 58 L Est GFR (Non-Af Amer) 48 L Glucose 175 H Calcium 8.0 L Phosphorus 3.9 Magnesium 2.0 Total Bilirubin 0.3 AST 35 ALT 54 Alkaline Phosphatase 152 H Total Protein 4.7 L Albumin 2.0 L Prealbumin 15.4 L Triglycerides 75 12/28/16 11:34 Blood Blood Culture - Final NO GROWTH IN 5 DAYS 12/28/16 11:30 Blood Blood Culture - Final NO GROWTH IN 5 DAYS 12/24/16 12/24/16 12/24/16 16:50 18:10 21:50 Creatine Kinase 29 L 72 CK-MB (CK-2) Troponin I 0.036 12/24/16 12/25/16 12/25/16 21:50 00:35 00:35 Creatine Kinase 66 CK-MB (CK-2) Troponin I 0.038 0.044 12/25/16 12/25/16 21:50 21:50 Creatine Kinase 26 L CK-MB (CK-2) 0.59 Troponin I 0.033 Impressions: Chest/Abdomen CTA 12/24/16 00:00 IMPRESSION: 1. NORMAL CTA OF THE CHEST. NO PULMONARY EMBOLI. 2. MODERATE BILATERAL PLEURAL EFFUSIONS. DENSE CONSOLIDATION IN THE LOWER LOBES DUE TO ATELECTASIS. CANNOT EXCLUDE PNEUMONIA. 3. FINDINGS IN THE UPPER ABDOMEN DESCRIBED. POSTOPERATIVE TINY BUBBLES OF FREE AIR. DISTENDED STOMACH AND VISUALIZED SMALL BOWEL. Abdomen/Pelvis CT 12/25/16 00:00 IMPRESSION: 1. SURGICAL CHANGES DESCRIBED. MODERATE DILATION OF THE STOMACH AND MAJORITY OF THE SMALL BOWEL. THERE DOES APPEAR TO BE A TRANSITION IN THE DISTAL SMALL BOWEL BEFORE THE ILEOSTOMY. THIS COULD BE DUE TO ASYMMETRIC POSTOPERATIVE ILEUS. PARTIAL SMALL BOWEL OBSTRUCTION COULD BE PRESENT ALTHOUGH UNUSUAL SO SOON AFTER SURGERY. MODERATE FREE FLUID WELL POSTOPERATIVE FREE AIR. 2. BILATERAL LOWER LOBE CONSOLIDATIONS WITH SMALL -MODERATE PLEURAL EFFUSIONS. 3. OTHER STABLE INCIDENTAL FINDINGS ABOVE. Chest CT 12/28/16 00:00 IMPRESSION: Small bilateral pleural effusions are again identified. The previously described associated airspace consolidation most consistent with atelectatic changes appears improved. There has been interval development of fairly diffuse patchy ground-glass opacities which are slightly more pronounced in the right lung as compared to the left. These could represent areas of pulmonary edema or developing infiltrates. Other findings as noted above KUB X-Ray 12/28/16 00:00 IMPRESSION: Nasogastric tube projects over the lumen of the stomach. Multiple dilated loops of small bowel noted throughout the abdomen have decreased in comparison the prior study. Head CT 01/01/17 00:00 IMPRESSION: CHRONIC CHANGES OF ATROPHY AND MICROVASCULAR ISCHEMIA. NO ACUTE PROCESS. Chest X-Ray 01/02/17 06:00 IMPRESSION: Stable chest status post extubation. No pneumothorax. 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 Gregory.
[2017-01-02 20:17] LABS: ARTERIAL BLOOD BASE EXCESS 10.3 mmol/L; ARTERIAL BLOOD O2 SATURATION 99.2 % (94-98)
[2017-01-02] MEDS: PROPOFOL 100 ML IV PRN ×2 (20:22→22:59)
[2017-01-03] MEDS: ACETAMINOPHEN SOLN 325 MG/10.15 ML UDCUP NG PRN (02:26)
[2017-01-03 04:25] LABS: ABSOLUTE BASOPHILS # (AUTO) 0.1 10^3/uL (0.0-0.2); ABSOLUTE EOSINOPHILS # (AUTO) 0.2 10^3/uL (0.0-0.6); ABSOLUTE LYMPHOCYTES (AUTO) 0.9 10^3/uL (0.5-4.7); ABSOLUTE MONOCYTES (AUTO) 0.9 10^3/uL (0.1-1.4); EOSINOPHILS % (AUTO) 1.8 % (0-6); HEMATOCRIT 29.6 % (37.9-51.0); HGB HCT DIFFERENCE 0.4; LYMPHOCYTES % (AUTO) 7.1 % (13-45); MEAN CORPUSCULAR HEMOGLOBIN 31.2 pg (27.0-33.4); MEAN CORPUSCULAR HGB CONC 33.7 g/dL (32.0-36.0); MEAN CORPUSCULAR VOLUME 93 fl (80-97); MONOCYTES % (AUTO) 6.9 % (3-13); RED BLOOD COUNT 3.19 10^6/uL (4.35-5.55); RED CELL DISTRIBUTION WIDTH 13.8 % (11.5-14.0); SEGMENTED NEUTROPHILS % (AUTO) 83.2 % (42-78); WHITE BLOOD COUNT 13.3 10^3/uL (4.0-10.5)
[2017-01-03 04:27] LABS: ARTERIAL BLOOD BASE EXCESS 14.4 mmol/L; ARTERIAL BLOOD O2 SATURATION 99.6 % (94-98)
[2017-01-03 04:34] LABS: ANION GAP 7 (5-19); BLOOD UREA NITROGEN 41 mg/dL (7-20); CARBON DIOXIDE 36 mmol/L (22-30); CHLORIDE 102 mmol/L (98-107); CREATININE RESULT 1.35 mg/dL (0.52-1.25); GLUCOSE 161 mg/dL (75-110); POTASSIUM 3.9 mmol/L (3.6-5.0)
[2017-01-03] MEDS: FUROSEMIDE INJ/PF 20 MG/2 ML SDV IV SCH (05:25)
[2017-01-03] MEDS: METOCLOPRAMIDE HCL INJ/PF 10 MG/2 ML SDV IV SCH ×4 (05:25→23:38)
[2017-01-03] MEDS: AMINO ACIDS 5%/D25W 1,000 ML IV PRN ×2 (06:20→22:35)
[2017-01-03] MEDS: PROPOFOL 100 ML IV PRN ×3 (06:21→21:08)
--- NOTE | 2017-01-03 06:36 | RADIOLOGY REPORT (SQ) ---
EXAM DESCRIPTION: CHEST SINGLE VIEW COMPLETED DATE/TIME: 01/03/2017 6:23 am REASON FOR STUDY: pna/resp failure COMPARISON: Chest x-ray 01/02/2017. EXAM PARAMETERS: NUMBER OF VIEWS: One view TECHNIQUE: Single frontal radiograph of the chest. RADIATION DOSE: N/A LIMITATIONS: None. FINDINGS: TEMPORARY SUPPORT DEVICES:ETT in expected location. NG tube courses below the left germán-d iaphragm in to the stomach. Central venous access catheter tip is in expected location. LUNGS AND PLEURA: No consolidation, pleural effusion or pneumothorax. MEDIASTINUM AND HILAR STRUCTURES: No masses. Contour normal. HEART AND VASCULAR STRUCTURES: Heart size normal. No overt vascular congestion. BONES: No acute findings. IMPRESSION: No acute radiographic finding in the chest. Support devices in expected locations. TECHNICAL DOCUMENTATION: JOB ID: [id number] [id number] 2010 [employer]- All Rights Reserved
[2017-01-03] MEDS: ENOXAPARIN SODIUM INJ 40 MG/0.4 ML DISP.SYRIN SUBCUT SCH (08:30)
--- NOTE | 2017-01-03 08:41 | PDOC PROGRESS REPORT ---
Subjective Progress Note for:: 01/03/17 Subjective:: Reintubated yesterday. Extubated 2 days ago, reported developed tachycardia, tachypnea and hypotension. WBC mildly elevated, has low grade fever. Culture sputum showing enterobacter. UO negative balance for the past 5 days. Only on TPN. Edema on UE improved. Physical Exam Vital Signs: Temp Pulse Resp BP Pulse Ox 99 F 83 16 111/56 L 97 01/02/17 18:00 01/02/17 22:00 01/03/17 06:02 01/03/17 06:02 01/03/17 06:02 Pulse Oximeter Continuous Start: 12/24/16 22: 07 Freq: Status: Complete Document 12/24/16 20:00 [facility] (Rec: 12/24/16 22:09 [facility] [email or web address]) Pulse Oximetry Assessment Oxygen Saturation (92-100) 100 Oxygen Flow Rate (L/min) 12 Oxygen Delivery Method Non-Rebreather Fraction of Inspired Oxygen (FIO2) 100 Equipment Usage Initial Set Up Continuous Pulse Oximeter 24 Hour Charge Charge Now Continuous SpO2 Machine # [id number] Intake & Output 01/02/17 01/03/17 01/04/17 06:59 06:59 06:59 Intake Total 1344 1765 Output Total 4295 3850 450 Balance -2951 -2085 -450 Weight 81.5 kg 77.9 kg General appearance: PRESENT: no acute distress, other - intubated and sedated Head exam: PRESENT: normocephalic Eye exam: PRESENT: conjunctiva pale Neck exam: ABSENT: JVD Respiratory exam: PRESENT: rhonchi - few bilateral. ABSENT: wheezes Cardiovascular exam: PRESENT: systolic murmur - oleft sternal border. ABSENT: gallop GI/Abdominal exam: PRESENT: diminished bowel sounds, soft. ABSENT: distended Extremities exam: ABSENT: pedal edema Neurological exam: PRESENT: altered Psychiatric exam: ABSENT: agitated Focused psych exam: ABSENT: restlessness Skin exam: PRESENT: dry, warm. ABSENT: cyanosis Results Laboratory Results: 01/03/17 04:10 01/03/17 04:10 01/02/17 01/03/17 01/03/17 20:00 00:45 04:10 WBC RBC Hgb Hct MCV MCH MCHC RDW Plt Count Seg Neutrophils % Lymphocytes % Monocytes % Eosinophils % Basophils % Absolute Neutrophils Absolute Lymphocytes Absolute Monocytes Absolute Eosinophils Absolute Basophils Carbonic Acid 1.69 H 1.43 H HCO3/H2CO3 Ratio 21:1 27:1 ABG pH 7.43 7.53 H ABG pCO2 56.1 H 47.4 H ABG pO2 170.6 H 233.3 H ABG HCO3 36.4 H 38.7 H ABG O2 Saturation 99.2 H 99.6 H ABG Base Excess 10.3 14.4 FiO2 70% 50% Sodium Potassium Chloride Carbon Dioxide Anion Gap BUN Creatinine Est GFR ( Amer) Est GFR (Non-Af Amer) Glucose Calcium Triglycerides 99 01/03/17 01/03/17 04:10 04:10 WBC 13.3 H RBC 3.19 L Hgb 10.0 L Hct 29.6 L MCV 93 MCH 31.2 MCHC 33.7 RDW 13.8 Plt Count 438 Seg Neutrophils % 83.2 H Lymphocytes % 7.1 L Monocytes % 6.9 Eosinophils % 1.8 Basophils % 1.0 Absolute Neutrophils 11.0 H Absolute Lymphocytes 0.9 Absolute Monocytes 0.9 Absolute Eosinophils 0.2 Absolute Basophils 0.1 Carbonic Acid HCO3/H2CO3 Ratio ABG pH ABG pCO2 ABG pO2 ABG HCO3 ABG O2 Saturation ABG Base Excess FiO2 Sodium 145.0 Potassium 3.9 Chloride 102 Carbon Dioxide 36 H Anion Gap 7 BUN 41 H Creatinine 1.35 H Est GFR ( Amer) > 60 Est GFR (Non-Af Amer) 51 L Glucose 161 H Calcium 8.0 L Triglycerides 12/28/16 11:34 Blood Blood Culture - Final NO GROWTH IN 5 DAYS 12/28/16 11:30 Blood Blood Culture - Final NO GROWTH IN 5 DAYS 12/24/16 12/24/16 12/24/16 16:50 18:10 21:50 Creatine Kinase 29 L 72 CK-MB (CK-2) Troponin I 0.036 12/24/16 12/25/16 12/25/16 21:50 00:35 00:35 Creatine Kinase 66 CK-MB (CK-2) Troponin I 0.038 0.044 12/25/16 12/25/16 21:50 21:50 Creatine Kinase 26 L CK-MB (CK-2) 0.59 Troponin I 0.033 Impressions: Chest/Abdomen CTA 12/24/16 00:00 IMPRESSION: 1. NORMAL CTA OF THE CHEST. NO PULMONARY EMBOLI. 2. MODERATE BILATERAL PLEURAL EFFUSIONS. DENSE CONSOLIDATION IN THE LOWER LOBES DUE TO ATELECTASIS. CANNOT EXCLUDE PNEUMONIA. 3. FINDINGS IN THE UPPER ABDOMEN DESCRIBED. POSTOPERATIVE TINY BUBBLES OF FREE AIR. DISTENDED STOMACH AND VISUALIZED SMALL BOWEL. Abdomen/Pelvis CT 12/25/16 00:00 IMPRESSION: 1. SURGICAL CHANGES DESCRIBED. MODERATE DILATION OF THE STOMACH AND MAJORITY OF THE SMALL BOWEL. THERE DOES APPEAR TO BE A TRANSITION IN THE DISTAL SMALL BOWEL BEFORE THE ILEOSTOMY. THIS COULD BE DUE TO ASYMMETRIC POSTOPERATIVE ILEUS. PARTIAL SMALL BOWEL OBSTRUCTION COULD BE PRESENT ALTHOUGH UNUSUAL SO SOON AFTER SURGERY. MODERATE FREE FLUID WELL POSTOPERATIVE FREE AIR. 2. BILATERAL LOWER LOBE CONSOLIDATIONS WITH SMALL -MODERATE PLEURAL EFFUSIONS. 3. OTHER STABLE INCIDENTAL FINDINGS ABOVE. Chest CT 12/28/16 00:00 IMPRESSION: Small bilateral pleural effusions are again identified. The previously described associated airspace consolidation most consistent with atelectatic changes appears improved. There has been interval development of fairly diffuse patchy ground-glass opacities which are slightly more pronounced in the right lung as compared to the left. These could represent areas of pulmonary edema or developing infiltrates. Other findings as noted above KUB X-Ray 12/28/16 00:00 IMPRESSION: Nasogastric tube projects over the lumen of the stomach. Multiple dilated loops of small bowel noted throughout the abdomen have decreased in comparison the prior study. Head CT 01/01/17 00:00 IMPRESSION: CHRONIC CHANGES OF ATROPHY AND MICROVASCULAR ISCHEMIA. NO ACUTE PROCESS. Chest X-Ray 01/03/17 06:00 IMPRESSION: No acute radiographic finding in the chest. Support devices in expected locations. Assessment & Plan - Diagnosis (1) Acute hypoxemic respiratory failure Is this a current diagnosis for this admission?: Yes (2) Aspiration pneumonia Qualifiers: Aspiration pneumonia type: unspecified Laterality: bilateral Lung location: lower lobe of lung Qualified Code(s): J69.0 - Pneumonitis due to inhalation of food and vomit Is this a current diagnosis for this admission?: Yes (3) Adynamic ileus Is this a current diagnosis for this admission?: Yes (4) Toxic megacolon Is this a current diagnosis for this admission?: Yes (5) Sigmoid volvulus Is this a current diagnosis for this admission?: Yes (6) Acute renal failure Qualifiers: Acute renal failure type: unspecified Qualified Code(s): N17.9 - Acute kidney failure, unspecified Is this a current diagnosis for this admission?: Yes (7) Chronic kidney disease, stage II (mild) Is this a current diagnosis for this admission?: Yes (8) Nodule of spleen Is this a current diagnosis for this admission?: Yes (9) Essential hypertension Is this a current diagnosis for this admission?: Yes (10) Hyperlipidemia, acquired Is this a current diagnosis for this admission?: Yes (11) BPH (benign prostatic hyperplasia) Qualifiers: Lower urinary tract symptom presence: unspecified whether lower urinary tract symptoms present Qualified Code(s): N40.0 - Benign prostatic hyperplasia without lower urinary tract symptoms Is this a current diagnosis for this admission?: Yes (12) Atherosclerotic vascular disease Is this a current diagnosis for this admission?: Yes (13) Hypotension Qualifiers: Hypotension type: unspecified hypotension type Qualified Code(s): I95.9 - Hypotension, unspecified Is this a current diagnosis for this admission?: Yes (14) Hypoxia Is this a current diagnosis for this admission?: Yes - Time Time Spent with patient: 25-34 minutes - Plan Summary Plan Summary: Resend cultures, obtain echocardiogram, begin cefepime, D/C lasix. Continue supportive care.
[2017-01-03] MEDS: CEFEPIME 2 GM/D5W RTU 50 ML IV SCH ×2 (09:59→21:07)
--- NOTE | 2017-01-03 11:07 | XCELERA REPORT ---
[address] [address] Transthoracic Echocardiogram Report Name: GUSTAVO HEARN Age: 81 yrs Gender: Male : 1935 Patient Status: Inpatient Patient Location: ICU\S\612\[id number]\A Study Date: 01/03/2017 09:30 AM Height: 72 in Weight: 171 lb BSA: 2.0 m2 Procedure: A complete two-dimensional transthoracic echocardiogram was performed (2D, M-mode, spectral and color flow Doppler). The study was technically difficult with many images being suboptimal in quality. Reason For Study: hypotension, low EF Ordering Physician: [facility] Performed By: Charlee Nielsen Interpretation Summary The left ventricular ejection fraction is normal. There is mild concentric left ventricular hypertrophy. Doppler measurements suggest pseudonormalized left ventricular relaxation, which is associated with grade II/IV or mild to moderate diastolic dysfunction The left ventricle is grossly normal size. Wall motion cannot be accurately commented on, but no definite regional wall motion abnormalities noted. The right ventricle is mildly dilated. The right ventricle appears to be hypertrophied The right ventricular systolic function is normal. The left atrium is mildly dilated. The right atrium is mildly dilated. There is no mitral valve stenosis. There is a trace amount of mitral regurgitation There is no aortic valve stenosis No aortic regurgitation is present. There is a trace or physiologic amount of tricuspid regurgitation Tricuspid regurgitation jet envelope not well defined to measure RV systolic pressure accurately. The aortic root is not well visualized. The inferior vena cava appeared small and collapsed with respiration (RAP 0-5 mmHg) Minimal pericardial effusion. MMode/2D Measurements \T\ Calculations RVDd: 3.2 cm LVIDd: 3.2 cm FS: 39.7 % Ao root diam: 2.6 cm IVSd: 1.2 cm LVIDs: 1.9 cm EDV(Teich): 40.5 ml LVPWd: 1.2 cm ESV(Teich): 11.5 ml Ao root area: 5.5 cm2 EF(Teich): 71.7 % Doppler Measurements \T\ Calculations MV E max brie: MV dec slope: Ao V2 max: LV V1 max P.6 cm/sec 105.6 cm/sec 0.81 mmHg MV A max brie: 169.8 cm/sec2 Ao max PG: LV V1 max: 56.9 cm/sec MV dec time: 4.6 mmHg 45.1 cm/sec MV E/A: 1.0 0.34 sec PA V2 max: PI end-d brie: TR max brie: 104.4 cm/sec 140.4 cm/sec 240.2 cm/sec PA max PG: TR max P.4 mmHg 23.1 mmHg Left Ventricle The left ventricle is grossly normal size. There is mild concentric left ventricular hypertrophy. The left ventricular ejection fraction is normal. Doppler measurements suggest pseudonormalized left ventricular relaxation, which is associated with grade II/IV or mild to moderate diastolic dysfunction. Wall motion cannot be accurately commented on, but no definite regional wall motion abnormalities noted. Right Ventricle The right ventricle is mildly dilated. The right ventricle appears to be hypertrophied. The right ventricular systolic function is normal. Atria The right atrium is mildly dilated. The left atrium is mildly dilated. Interarterial septum not well visualized and not well dopplered. Cannot comment on ASD/PFO presence. Mitral Valve The mitral valve is grossly normal. There is no mitral valve stenosis. There is a trace amount of mitral regurgitation. Aortic Valve The aortic valve is mildly calcified. There is no aortic valve stenosis. No aortic regurgitation is present. Tricuspid Valve The tricuspid valve is not well visualized secondary to technical limitations. There is no tricuspid stenosis. There is a trace or physiologic amount of tricuspid regurgitation. Tricuspid regurgitation jet envelope not well defined to measure RV systolic pressure accurately. Pulmonic Valve The pulmonic valve is not well visualized. Great Vessels The aortic root is not well visualized. The inferior vena cava appeared small and collapsed with respiration (RAP 0-5 mmHg). Effusions Minimal pericardial effusion. : [facility] Shyamal
[2017-01-03] MEDS: INSULIN REG, HUMAN 100 UNIT/ML 3 ML VIAL (PYX) SUBCUT PRN ×2 (12:12→23:39)
--- NOTE | 2017-01-03 12:52 | EKG REPORT ---
SEVERITY:- BORDERLINE ECG - SINUS RHYTHM PROBABLE LEFT ATRIAL ABNORMALITY : Confirmed by: Maryan Rees MD 03-Jan-2017 12:51:56
--- NOTE | 2017-01-03 17:52 | RADIOLOGY REPORT (SQ) ---
EXAM DESCRIPTION: CT ABD/PELVIS ORAL ONLY COMPLETED DATE/TIME: 01/03/2017 5:21 pm REASON FOR STUDY: increased NGT residuals K56.2 VOLVULUS COMPARISON: 12/28/2016 and 12/25/2016. TECHNIQUE: CT scan of the abdomen and pelvis performed with oral contrast and no intravenous contras t. Images reviewed with lung, soft tissue, and bone windows. Reconstructed coronal and sagittal MPR i mages reviewed. All images stored on PACS. All CT scanners at this facility use dose modulation, iterative reconstruction, and/or weight based d osing when appropriate to reduce radiation dose to as low as reasonably achievable (ALARA). [facility]: Dose Right [facility]: CareDose [facility]: Dose Right [facility]: Teradose 4D [facility]: [employer] RADIATION DOSE: Up-to-date CT equipment and radiation dose reduction techniques were employed. CTDIv ol: 10.9 mGy. DLP: 632 mGy-cm. mGy. LIMITATIONS: None. FINDINGS: LOWER CHEST: No significant findings. No nodules or infiltrates. Previously seen pleural effusions have almost completely resolved. NON-CONTRASTED LIVER, SPLEEN, ADRENALS: Evaluation limited by lack of IV contrast. No identified sign ificant masses. PANCREAS: No masses. No peripancreatic inflammatory changes. GALLBLADDER: No identified stones by CT criteria. No inflammatory changes to suggest cholecystitis. RIGHT KIDNEY AND URETER: Possible cortical cyst. No suspicious masses. Assessment limited by lack of IV contrast. No significant calcifications. No hydronephrosis or hydroureter. LEFT KIDNEY AND URETER: No suspicious masses. Assessment limited by lack of IV contrast. No signifi cant calcifications. No hydronephrosis or hydroureter. AORTA AND RETROPERITONEUM: No aneurysm. No retroperitoneal masses or adenopathy. BOWEL AND PERITONEAL CAVITY: There has been previous subtotal colectomy with residual rectal stump an d ileostomy in the right lower quadrant. The nasogastric tube is present with the tip in the stomach . Contrast is present throughout the stomach and small bowel and fills the small bowel to the level of the ileostomy and enters the ileostomy bag. No significant gastric distention or bowel dilation. There is moderate free fluid. APPENDIX: Surgically absent. PELVIS, BLADDER, AND ABDOMINAL WALL: No abnormal pelvic masses. No abdominal wall hernias. Catheter in the bladder. BONES: No significant findings. Degenerative changes in the spine. OTHER: No other significant finding. IMPRESSION: 1. SURGICAL CHANGES DESCRIBED WITH SUBTOTAL COLECTOMY AND ILEOSTOMY IN THE RIGHT LOWER QUADRANT. THERE IS NO SIGNIFICANT DISTENTION OF THE STOMACH OR SMALL BOWEL DILATION. CONTRAST FILLS THE ENTIRE SMALL BOWEL TO THE ILEOSTOMY WITH NO EVIDENCE OF BOWEL OBSTRUCTION. 2. MODERATE FREE FLUID IN THE ABDOMEN AND PELVIS. 3. OTHER INCIDENTAL FINDINGS ABOVE. TECHNICAL DOCUMENTATION: JOB ID: [id number] Quality ID # [id number]: Final reports with documentation of one or more dose reduction techniques (e.g., Au tomated exposure control, adjustment of the mA and/or kV according to patient size, use of iterative reconstruction technique) 2010 [employer]- All Rights Reserved
--- NOTE | 2017-01-03 19:30 | PDOC PROGRESS REPORT ---
Subjective Progress Note for:: 01/03/17 Subjective:: patient intubated, unresponsive Physical Exam Vital Signs: Temp Pulse Resp BP Pulse Ox 99 F 77 16 99/49 L 98 01/02/17 18:00 01/03/17 10:00 01/03/17 18:09 01/03/17 18:09 01/03/17 18:09 Pulse Oximeter Continuous Start: 12/24/16 22: 07 Freq: Status: Complete Document 12/24/16 20:00 [facility] (Rec: 12/24/16 22:09 [facility] [email or web address]) Pulse Oximetry Assessment Oxygen Saturation (92-100) 100 Oxygen Flow Rate (L/min) 12 Oxygen Delivery Method Non-Rebreather Fraction of Inspired Oxygen (FIO2) 100 Equipment Usage Initial Set Up Continuous Pulse Oximeter 24 Hour Charge Charge Now Continuous SpO2 Machine # [id number] Intake & Output 01/02/17 01/03/17 01/04/17 06:59 06:59 06:59 Intake Total 1344 1765 1266 Output Total 4295 3850 2080 Balance -2951 -2085 -814 Weight 81.5 kg 77.9 kg Respiratory exam: PRESENT: clear to auscultation annabel Cardiovascular exam: PRESENT: RRR GI/Abdominal exam: PRESENT: normal bowel sounds, soft, other - ileostomy pink, working; midline incision well healed Results Laboratory Results: 01/03/17 04:10 01/03/17 04:10 01/02/17 01/03/17 01/03/17 20:00 00:45 04:10 WBC RBC Hgb Hct MCV MCH MCHC RDW Plt Count Seg Neutrophils % Lymphocytes % Monocytes % Eosinophils % Basophils % Absolute Neutrophils Absolute Lymphocytes Absolute Monocytes Absolute Eosinophils Absolute Basophils Carbonic Acid 1.69 H 1.43 H HCO3/H2CO3 Ratio 21:1 27:1 ABG pH 7.43 7.53 H ABG pCO2 56.1 H 47.4 H ABG pO2 170.6 H 233.3 H ABG HCO3 36.4 H 38.7 H ABG O2 Saturation 99.2 H 99.6 H ABG Base Excess 10.3 14.4 FiO2 70% 50% Sodium Potassium Chloride Carbon Dioxide Anion Gap BUN Creatinine Est GFR ( Amer) Est GFR (Non-Af Amer) Glucose Calcium Triglycerides 99 01/03/17 01/03/17 04:10 04:10 WBC 13.3 H RBC 3.19 L Hgb 10.0 L Hct 29.6 L MCV 93 MCH 31.2 MCHC 33.7 RDW 13.8 Plt Count 438 Seg Neutrophils % 83.2 H Lymphocytes % 7.1 L Monocytes % 6.9 Eosinophils % 1.8 Basophils % 1.0 Absolute Neutrophils 11.0 H Absolute Lymphocytes 0.9 Absolute Monocytes 0.9 Absolute Eosinophils 0.2 Absolute Basophils 0.1 Carbonic Acid HCO3/H2CO3 Ratio ABG pH ABG pCO2 ABG pO2 ABG HCO3 ABG O2 Saturation ABG Base Excess FiO2 Sodium 145.0 Potassium 3.9 Chloride 102 Carbon Dioxide 36 H Anion Gap 7 BUN 41 H Creatinine 1.35 H Est GFR ( Amer) > 60 Est GFR (Non-Af Amer) 51 L Glucose 161 H Calcium 8.0 L Triglycerides 12/24/16 12/24/16 12/24/16 16:50 18:10 21:50 Creatine Kinase 29 L 72 CK-MB (CK-2) Troponin I 0.036 12/24/16 12/25/16 12/25/16 21:50 00:35 00:35 Creatine Kinase 66 CK-MB (CK-2) Troponin I 0.038 0.044 12/25/16 12/25/16 21:50 21:50 Creatine Kinase 26 L CK-MB (CK-2) 0.59 Troponin I 0.033 Impressions: Chest/Abdomen CTA 12/24/16 00:00 IMPRESSION: 1. NORMAL CTA OF THE CHEST. NO PULMONARY EMBOLI. 2. MODERATE BILATERAL PLEURAL EFFUSIONS. DENSE CONSOLIDATION IN THE LOWER LOBES DUE TO ATELECTASIS. CANNOT EXCLUDE PNEUMONIA. 3. FINDINGS IN THE UPPER ABDOMEN DESCRIBED. POSTOPERATIVE TINY BUBBLES OF FREE AIR. DISTENDED STOMACH AND VISUALIZED SMALL BOWEL. Chest CT 12/28/16 00:00 IMPRESSION: Small bilateral pleural effusions are again identified. The previously described associated airspace consolidation most consistent with atelectatic changes appears improved. There has been interval development of fairly diffuse patchy ground-glass opacities which are slightly more pronounced in the right lung as compared to the left. These could represent areas of pulmonary edema or developing infiltrates. Other findings as noted above KUB X-Ray 12/28/16 00:00 IMPRESSION: Nasogastric tube projects over the lumen of the stomach. Multiple dilated loops of small bowel noted throughout the abdomen have decreased in comparison the prior study. Head CT 01/01/17 00:00 IMPRESSION: CHRONIC CHANGES OF ATROPHY AND MICROVASCULAR ISCHEMIA. NO ACUTE PROCESS. Chest X-Ray 01/03/17 06:00 IMPRESSION: No acute radiographic finding in the chest. Support devices in expected locations. Abdomen/Pelvis CT 01/03/17 14:07 IMPRESSION: 1. SURGICAL CHANGES DESCRIBED WITH SUBTOTAL COLECTOMY AND ILEOSTOMY IN THE RIGHT LOWER QUADRANT. THERE IS NO SIGNIFICANT DISTENTION OF THE STOMACH OR SMALL BOWEL DILATION. CONTRAST FILLS THE ENTIRE SMALL BOWEL TO THE ILEOSTOMY WITH NO EVIDENCE OF BOWEL OBSTRUCTION. 2. MODERATE FREE FLUID IN THE ABDOMEN AND PELVIS. 3. OTHER INCIDENTAL FINDINGS ABOVE. 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 Gregory in AM vs. resuming tube feeding via NGT at low rate starting tomorrow AM early.
[2017-01-04] MEDS: DEXTROSE 5%-WATER 250 ML with PHENYLEPHRINE HCL 40 MG IV PRN ×4 (00:14→15:14)
[2017-01-04 04:58] LABS: ABSOLUTE BASOPHILS # (AUTO) 0.1 10^3/uL (0.0-0.2); ABSOLUTE EOSINOPHILS # (AUTO) 0.4 10^3/uL (0.0-0.6); ABSOLUTE LYMPHOCYTES (AUTO) 0.9 10^3/uL (0.5-4.7); ABSOLUTE MONOCYTES (AUTO) 0.6 10^3/uL (0.1-1.4); ABSOLUTE NEUT (AUTO) 7.6 10^3/uL (1.7-8.2); BASOPHILS % (AUTO) 1.1 % (0-2); HEMATOCRIT 27.7 % (37.9-51.0); HEMOGLOBIN 9.5 g/dL (13.5-17.0); HGB HCT DIFFERENCE 0.8; LYMPHOCYTES % (AUTO) 9.8 % (13-45); MEAN CORPUSCULAR HEMOGLOBIN 31.5 pg (27.0-33.4); MEAN CORPUSCULAR HGB CONC 34.1 g/dL (32.0-36.0); MEAN CORPUSCULAR VOLUME 92 fl (80-97); MONOCYTES % (AUTO) 6.1 % (3-13); RED CELL DISTRIBUTION WIDTH 13.4 % (11.5-14.0); WHITE BLOOD COUNT 9.6 10^3/uL (4.0-10.5)
[2017-01-04 05:04] LABS: ARTERIAL BLOOD BASE EXCESS 10.7 mmol/L; ARTERIAL BLOOD O2 SATURATION 98.3 % (94-98)
[2017-01-04] MEDS: METOCLOPRAMIDE HCL INJ/PF 10 MG/2 ML SDV IV SCH ×4 (05:09→23:59)
[2017-01-04] MEDS: PROPOFOL 100 ML IV PRN ×4 (05:10→23:59)
[2017-01-04 05:20] LABS: ANION GAP 5 (5-19); BLOOD UREA NITROGEN 45 mg/dL (7-20); CALCIUM 8.1 mg/dL (8.4-10.2); CARBON DIOXIDE 34 mmol/L (22-30); CHLORIDE 101 mmol/L (98-107); GLUCOSE 187 mg/dL (75-110); MAGNESIUM 2.2 mg/dL (1.6-2.3); SODIUM 140.3 mmol/L (137-145)
[2017-01-04] MEDS: INSULIN REG, HUMAN 100 UNIT/ML 3 ML VIAL (PYX) SUBCUT PRN (06:10)
--- NOTE | 2017-01-04 07:44 | RADIOLOGY REPORT (SQ) ---
EXAM DESCRIPTION: CHEST SINGLE VIEW COMPLETED DATE/TIME: 01/04/2017 6:25 am REASON FOR STUDY: acute/chronic resp failure COMPARISON: 01/03/2017. EXAM PARAMETERS: NUMBER OF VIEWS: One view. TECHNIQUE: Single frontal radiographic view of the chest acquired. RADIATION DOSE: NA LIMITATIONS: Right CP angle clipped off the image. FINDINGS: LUNGS AND PLEURA: No opacities, masses or pneumothorax. No pleural effusion. MEDIASTINUM AND HILAR STRUCTURES: No masses. Contour normal. HEART AND VASCULAR STRUCTURES: Heart normal in size. Normal vasculature. BONES: No acute findings. HARDWARE: Tip of an endotracheal tube is above the thoracic inlet; recommend 3.5 cm advancement. Samantha quate appearing partially imaged NG tube and right internal jugular central line. OTHER: No other significant finding. IMPRESSION: Tip of an endotracheal tube is above the thoracic inlet; recommend 3.5 cm advancement. No acute cardiopulmonary findings. TECHNICAL DOCUMENTATION: JOB ID: [id number]
[2017-01-04] MEDS ORDERED: NORMAL SALINE 1000 ML 500 ML IV ONE (09:21)
--- NOTE | 2017-01-04 09:26 | PDOC PROGRESS REPORT ---
Subjective Progress Note for:: 01/04/17 Subjective:: Remain on vasopressor. Still with a negative urine output balance. Off Lasix. No temperature spikes, nausea or vomiting, nor increasing output in the colostomy. Patient's TPN rate was also increased. Repeat cultures are pending. Physical Exam Vital Signs: Temp Pulse Resp BP Pulse Ox 99.0 F 64 16 94/45 L 100 01/04/17 08:00 01/04/17 07:37 01/04/17 07:30 01/04/17 07:24 01/04/17 07:30 Pulse Oximeter Continuous Start: 12/24/16 22: 07 Freq: Status: Complete Document 12/24/16 20:00 [facility] (Rec: 12/24/16 22:09 [facility] [email or web address]) Pulse Oximetry Assessment Oxygen Saturation (92-100) 100 Oxygen Flow Rate (L/min) 12 Oxygen Delivery Method Non-Rebreather Fraction of Inspired Oxygen (FIO2) 100 Equipment Usage Initial Set Up Continuous Pulse Oximeter 24 Hour Charge Charge Now Continuous SpO2 Machine # [id number] Intake & Output 01/03/17 01/04/17 01/05/17 06:59 06:59 06:59 Intake Total 1765 2523 Output Total 3850 3520 200 Balance -2085 -997 -200 Weight 77.9 kg 77.1 kg General appearance: PRESENT: no acute distress, other - Intubated and sedated Eye exam: PRESENT: conjunctiva pale Mouth exam: PRESENT: neck supple Neck exam: ABSENT: JVD Respiratory exam: PRESENT: clear to auscultation annabel. ABSENT: rhonchi, wheezes Cardiovascular exam: PRESENT: RRR. ABSENT: gallop GI/Abdominal exam: PRESENT: soft. ABSENT: distended, tenderness Extremities exam: ABSENT: pedal edema Skin exam: PRESENT: dry, warm. ABSENT: cyanosis Results Laboratory Results: 01/04/17 04:40 01/04/17 04:40 01/04/17 01/04/17 01/04/17 04:40 04:40 04:40 WBC 9.6 RBC 3.00 L Hgb 9.5 L Hct 27.7 L MCV 92 MCH 31.5 MCHC 34.1 RDW 13.4 Plt Count 352 Seg Neutrophils % 79.0 H Lymphocytes % 9.8 L Monocytes % 6.1 Eosinophils % 4.0 Basophils % 1.1 Absolute Neutrophils 7.6 Absolute Lymphocytes 0.9 Absolute Monocytes 0.6 Absolute Eosinophils 0.4 Absolute Basophils 0.1 Carbonic Acid 1.33 HCO3/H2CO3 Ratio 26:1 ABG pH 7.51 H ABG pCO2 44.1 ABG pO2 107.1 H ABG HCO3 34.7 H ABG O2 Saturation 98.3 H ABG Base Excess 10.7 FiO2 30% Sodium 140.3 Potassium 4.0 Chloride 101 Carbon Dioxide 34 H Anion Gap 5 BUN 45 H Creatinine 1.40 H Est GFR ( Amer) 59 L Est GFR (Non-Af Amer) 49 L Glucose 187 H Calcium 8.1 L Magnesium 2.2 12/24/16 12/24/16 12/24/16 16:50 18:10 21:50 Creatine Kinase 29 L 72 CK-MB (CK-2) Troponin I 0.036 12/24/16 12/25/16 12/25/16 21:50 00:35 00:35 Creatine Kinase 66 CK-MB (CK-2) Troponin I 0.038 0.044 12/25/16 12/25/16 21:50 21:50 Creatine Kinase 26 L CK-MB (CK-2) 0.59 Troponin I 0.033 Impressions: Chest/Abdomen CTA 12/24/16 00:00 IMPRESSION: 1. NORMAL CTA OF THE CHEST. NO PULMONARY EMBOLI. 2. MODERATE BILATERAL PLEURAL EFFUSIONS. DENSE CONSOLIDATION IN THE LOWER LOBES DUE TO ATELECTASIS. CANNOT EXCLUDE PNEUMONIA. 3. FINDINGS IN THE UPPER ABDOMEN DESCRIBED. POSTOPERATIVE TINY BUBBLES OF FREE AIR. DISTENDED STOMACH AND VISUALIZED SMALL BOWEL. Chest CT 12/28/16 00:00 IMPRESSION: Small bilateral pleural effusions are again identified. The previously described associated airspace consolidation most consistent with atelectatic changes appears improved. There has been interval development of fairly diffuse patchy ground-glass opacities which are slightly more pronounced in the right lung as compared to the left. These could represent areas of pulmonary edema or developing infiltrates. Other findings as noted above KUB X-Ray 12/28/16 00:00 IMPRESSION: Nasogastric tube projects over the lumen of the stomach. Multiple dilated loops of small bowel noted throughout the abdomen have decreased in comparison the prior study. Head CT 01/01/17 00:00 IMPRESSION: CHRONIC CHANGES OF ATROPHY AND MICROVASCULAR ISCHEMIA. NO ACUTE PROCESS. Abdomen/Pelvis CT 01/03/17 14:07 IMPRESSION: 1. SURGICAL CHANGES DESCRIBED WITH SUBTOTAL COLECTOMY AND ILEOSTOMY IN THE RIGHT LOWER QUADRANT. THERE IS NO SIGNIFICANT DISTENTION OF THE STOMACH OR SMALL BOWEL DILATION. CONTRAST FILLS THE ENTIRE SMALL BOWEL TO THE ILEOSTOMY WITH NO EVIDENCE OF BOWEL OBSTRUCTION. 2. MODERATE FREE FLUID IN THE ABDOMEN AND PELVIS. 3. OTHER INCIDENTAL FINDINGS ABOVE. Chest X-Ray 01/04/17 06:00 IMPRESSION: Tip of an endotracheal tube is above the thoracic inlet; recommend 3.5 cm advancement. No acute cardiopulmonary findings. Assessment & Plan - Diagnosis (1) Acute hypoxemic respiratory failure Is this a current diagnosis for this admission?: Yes (2) Aspiration pneumonia Qualifiers: Aspiration pneumonia type: unspecified Laterality: bilateral Lung location: lower lobe of lung Qualified Code(s): J69.0 - Pneumonitis due to inhalation of food and vomit Is this a current diagnosis for this admission?: Yes (3) Adynamic ileus Is this a current diagnosis for this admission?: Yes (4) Toxic megacolon Is this a current diagnosis for this admission?: Yes (5) Sigmoid volvulus Is this a current diagnosis for this admission?: Yes (6) Acute renal failure Qualifiers: Acute renal failure type: unspecified Qualified Code(s): N17.9 - Acute kidney failure, unspecified Is this a current diagnosis for this admission?: Yes (7) Chronic kidney disease, stage II (mild) Is this a current diagnosis for this admission?: Yes (8) Nodule of spleen Is this a current diagnosis for this admission?: Yes (9) Essential hypertension Is this a current diagnosis for this admission?: Yes (10) Hyperlipidemia, acquired Is this a current diagnosis for this admission?: Yes (11) BPH (benign prostatic hyperplasia) Qualifiers: Lower urinary tract symptom presence: unspecified whether lower urinary tract symptoms present Qualified Code(s): N40.0 - Benign prostatic hyperplasia without lower urinary tract symptoms Is this a current diagnosis for this admission?: Yes (12) Atherosclerotic vascular disease Is this a current diagnosis for this admission?: Yes (13) Hypotension Qualifiers: Hypotension type: unspecified hypotension type Qualified Code(s): I95.9 - Hypotension, unspecified Is this a current diagnosis for this admission?: Yes (14) Hypoxia Is this a current diagnosis for this admission?: Yes - Time Time Spent with patient: 25-34 minutes - Plan Summary Plan Summary: Continue to hold Lasix. Continue antibiotics. Follow repeat cultures. Give 500 mL of saline bolus. Continue to monitor input and output closely. Continue supportive care.
[2017-01-04] MEDS: ENOXAPARIN SODIUM INJ 40 MG/0.4 ML DISP.SYRIN SUBCUT SCH (09:37)
[2017-01-04] MEDS: CEFEPIME 2 GM/D5W RTU 50 ML IV SCH ×2 (09:38→21:38)
[2017-01-04] MEDS ORDERED: NORMAL SALINE 500 ML IV ONE (09:45)
[2017-01-04] MEDS: AMINO ACIDS 5%/D25W 1,000 ML IV PRN (12:24)
--- NOTE | 2017-01-04 14:55 | Operative Report ---
Operative Report DATE OF SURGERY: 12/19/16 PREOPERATIVE DIAGNOSIS: 1. Need of IV access for meds and fluids. 2.s/p total colectomy POSTOPERATIVE DIAGNOSIS: same OPERATION: placement of left subclavian vein central venous triple lume catheter SURGEON: ANA MARÍA REESE ANESTHESIA: Local TISSUE REMOVED OR ALTERED: none COMPLICATIONS: none ESTIMATED BLOOD LOSS: negligeble INTRAOPERATIVE FINDINGS: See below PROCEDURE: see dictation
--- NOTE | 2017-01-04 15:07 | PDOC PROGRESS REPORT ---
Subjective Progress Note for:: 01/04/17 Subjective:: patient intubated, unresponsive Physical Exam Vital Signs: Temp Pulse Resp BP Pulse Ox 99.0 F 73 15 106/44 L 99 01/04/17 12:00 01/04/17 12:00 01/04/17 12:45 01/04/17 12:39 01/04/17 12:45 Pulse Oximeter Continuous Start: 12/24/16 22: 07 Freq: Status: Complete Document 12/24/16 20:00 [facility] (Rec: 12/24/16 22:09 [facility] [email or web address]) Pulse Oximetry Assessment Oxygen Saturation (92-100) 100 Oxygen Flow Rate (L/min) 12 Oxygen Delivery Method Non-Rebreather Fraction of Inspired Oxygen (FIO2) 100 Equipment Usage Initial Set Up Continuous Pulse Oximeter 24 Hour Charge Charge Now Continuous SpO2 Machine # [id number] Intake & Output 01/03/17 01/04/17 01/05/17 06:59 06:59 06:59 Intake Total 1765 3493 Output Total 7970 3520 455 Balance -2085 -997 -455 Weight 77.9 kg 77.1 kg Respiratory exam: PRESENT: clear to auscultation annabel Cardiovascular exam: PRESENT: RRR GI/Abdominal exam: PRESENT: normal bowel sounds, soft Results Laboratory Results: 01/04/17 04:40 01/04/17 04:40 01/04/17 01/04/17 01/04/17 04:40 04:40 04:40 WBC 9.6 RBC 3.00 L Hgb 9.5 L Hct 27.7 L MCV 92 MCH 31.5 MCHC 34.1 RDW 13.4 Plt Count 352 Seg Neutrophils % 79.0 H Lymphocytes % 9.8 L Monocytes % 6.1 Eosinophils % 4.0 Basophils % 1.1 Absolute Neutrophils 7.6 Absolute Lymphocytes 0.9 Absolute Monocytes 0.6 Absolute Eosinophils 0.4 Absolute Basophils 0.1 Carbonic Acid 1.33 HCO3/H2CO3 Ratio 26:1 ABG pH 7.51 H ABG pCO2 44.1 ABG pO2 107.1 H ABG HCO3 34.7 H ABG O2 Saturation 98.3 H ABG Base Excess 10.7 FiO2 30% Sodium 140.3 Potassium 4.0 Chloride 101 Carbon Dioxide 34 H Anion Gap 5 BUN 45 H Creatinine 1.40 H Est GFR ( Amer) 59 L Est GFR (Non-Af Amer) 49 L Glucose 187 H Calcium 8.1 L Magnesium 2.2 12/24/16 12/24/16 12/24/16 16:50 18:10 21:50 Creatine Kinase 29 L 72 CK-MB (CK-2) Troponin I 0.036 12/24/16 12/25/16 12/25/16 21:50 00:35 00:35 Creatine Kinase 66 CK-MB (CK-2) Troponin I 0.038 0.044 12/25/16 12/25/16 21:50 21:50 Creatine Kinase 26 L CK-MB (CK-2) 0.59 Troponin I 0.033 Impressions: Chest/Abdomen CTA 12/24/16 00:00 IMPRESSION: 1. NORMAL CTA OF THE CHEST. NO PULMONARY EMBOLI. 2. MODERATE BILATERAL PLEURAL EFFUSIONS. DENSE CONSOLIDATION IN THE LOWER LOBES DUE TO ATELECTASIS. CANNOT EXCLUDE PNEUMONIA. 3. FINDINGS IN THE UPPER ABDOMEN DESCRIBED. POSTOPERATIVE TINY BUBBLES OF FREE AIR. DISTENDED STOMACH AND VISUALIZED SMALL BOWEL. Chest CT 12/28/16 00:00 IMPRESSION: Small bilateral pleural effusions are again identified. The previously described associated airspace consolidation most consistent with atelectatic changes appears improved. There has been interval development of fairly diffuse patchy ground-glass opacities which are slightly more pronounced in the right lung as compared to the left. These could represent areas of pulmonary edema or developing infiltrates. Other findings as noted above KUB X-Ray 12/28/16 00:00 IMPRESSION: Nasogastric tube projects over the lumen of the stomach. Multiple dilated loops of small bowel noted throughout the abdomen have decreased in comparison the prior study. Head CT 01/01/17 00:00 IMPRESSION: CHRONIC CHANGES OF ATROPHY AND MICROVASCULAR ISCHEMIA. NO ACUTE PROCESS. Abdomen/Pelvis CT 01/03/17 14:07 IMPRESSION: 1. SURGICAL CHANGES DESCRIBED WITH SUBTOTAL COLECTOMY AND ILEOSTOMY IN THE RIGHT LOWER QUADRANT. THERE IS NO SIGNIFICANT DISTENTION OF THE STOMACH OR SMALL BOWEL DILATION. CONTRAST FILLS THE ENTIRE SMALL BOWEL TO THE ILEOSTOMY WITH NO EVIDENCE OF BOWEL OBSTRUCTION. 2. MODERATE FREE FLUID IN THE ABDOMEN AND PELVIS. 3. OTHER INCIDENTAL FINDINGS ABOVE. Chest X-Ray 01/04/17 06:00 IMPRESSION: Tip of an endotracheal tube is above the thoracic inlet; recommend 3.5 cm advancement. No acute cardiopulmonary findings. Assessment & Plan - Diagnosis (1) Aspiration pneumonia Qualifiers: Aspiration pneumonia type: unspecified Laterality: bilateral Lung location: lower lobe of lung Qualified Code(s): J69.0 - Pneumonitis due to inhalation of food and vomit Is this a current diagnosis for this admission?: Yes (2) Sigmoid volvulus Is this a current diagnosis for this admission?: Yes (4) Acute hypoxemic respiratory failure Is this a current diagnosis for this admission?: Yes (5) Toxic megacolon Is this a current diagnosis for this admission?: Yes - Plan Summary Plan Summary: A/ POD#16 Patient still intubated Still high residual from NGT despite stools in the ileostomy bag Septic picture P/ Replace CVL today and send tip of old CVL for culture Dr. Gregory to confer with patient's family in regard to tracheostomy and feeding jejunostomy tomorrow
--- NOTE | 2017-01-04 15:17 | RADIOLOGY REPORT (SQ) ---
EXAM DESCRIPTION: CHEST SINGLE VIEW COMPLETED DATE/TIME: 01/04/2017 2:58 pm REASON FOR STUDY: Left CVL subclavian line placement COMPARISON: 01/04/2017 EXAM PARAMETERS: NUMBER OF VIEWS: One view. TECHNIQUE: Single frontal radiographic view of the chest acquired. RADIATION DOSE: NA LIMITATIONS: None. FINDINGS: LUNGS AND PLEURA: No opacities, masses or pneumothorax. No pleural effusion. MEDIASTINUM AND HILAR STRUCTURES: No masses. Contour normal. HEART AND VASCULAR STRUCTURES: Heart normal in size. Normal vasculature. BONES: No acute findings. HARDWARE: The endotracheal tube is been advanced. The tip of the tube is 5 cm above the sammy. A l eft subclavian line is present. The tip of the catheter is in the superior vena cava. OTHER: No other significant finding. IMPRESSION: Endotracheal tube and left subclavian line as described. TECHNICAL DOCUMENTATION: JOB ID: [id number]
--- NOTE | 2017-01-04 15:33 | OPERATIVE REPORT E ---
Operative Report NAME: GUSTAVO HEARN : 1935 AGE: 81Y DATE OF SURGERY: 01/04/2017 ROOM: [id number] PREOPERATIVE DIAGNOSIS: Need of IV access for medication and fluid administration. POSTOPERATIVE DIAGNOSIS: Need of IV access for medication and fluid administration. PROCEDURE: Left subclavian vein and central venous line placement. SURGEON: ANA MARÍA REESE M.D. RECORDS AND TAPE RECORDINGS ENGINEER: None. BLEEDING: Minimal. COMPLICATIONS: None. ANESTHESIA: Local with 5 mL of 1% lidocaine. 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 He requires a new central venous line for administration of medication and fluids. DESCRIPTION OF PROCEDURE: The procedure was done at beside. The patient was placed in supine Trendelenburg position. The left side of the chest and neck were prepped and draped in the usual fashion. The area just below the clavicle was infiltrated with lidocaine and a 16-gauge needle was used to easily cannulate to the subclavian vein. Following this, a guide wire was inserted through the needle into the subclavian vein and superior vena cava. The needle was then removed. The incision point for the guide wire was enlarged with a tissue dilator. Following this, the central venous line was inserted over the guide wire, which was then removed. The triple-lumen catheter was then secured to the skin with silk suture and a sterile dressing and each port was flushed with NS. The patient tolerated the procedure well, and a chest x-ray was then obtained to confirm position of the line. DICTATING PHYSICIAN: ANA MARÍA REESE M.D. [id number] PHY#: [id number] ID: [id number] JOB#: [id number] ACCT: [id number] cc:ANA MARÍA REESE M.D. > [place]
[2017-01-04] MEDS ORDERED: ERYTHROMYCIN INJ 500 MG VIAL IV SCH (15:45)
[2017-01-04] MEDS: ERYTHROMYCIN LACTOBIONATE 250 MG in NORMAL SALINE 100 ML IV SCH (17:47)
--- NOTE | 2017-01-04 18:23 | PDOC PROGRESS REPORT ---
Subjective Progress Note for:: 01/03/17 Subjective:: Intubated and sedated Physical Exam Vital Signs: Temp Pulse Resp BP Pulse Ox 99.0 F 64 16 94/45 L 100 01/04/17 08:00 01/04/17 07:37 01/04/17 07:30 01/04/17 07:24 01/04/17 07:30 Pulse Oximeter Continuous Start: 12/24/16 22: 07 Freq: Status: Complete Document 12/24/16 20:00 [facility] (Rec: 12/24/16 22:09 [facility] [email or web address]) Pulse Oximetry Assessment Oxygen Saturation (92-100) 100 Oxygen Flow Rate 12 Oxygen Delivery Method Non-Rebreather Fraction of Inspired Oxygen (FIO2) 100 Equipment Usage Initial Set Up Continuous Pulse Oximeter 24 Hour Charge Charge Now Continuous SpO2 Machine # [id number] Intake & Output 01/03/17 01/04/17 01/05/17 06:59 06:59 06:59 Intake Total 1765 2523 Output Total 3850 3520 200 [facility] -2085 -997 -200 Weight 77.9 kg 77.1 kg General appearance: PRESENT: no acute distress, disheveled, thin, well-developed Head exam: PRESENT: atraumatic, normocephalic Eye exam: PRESENT: conjunctiva pale, EOMI Mouth exam: PRESENT: dry mucosa, neck supple, tongue midline, other - ET tube in place Neck exam: ABSENT: carotid bruit, JVD, lymphadenopathy, thyromegaly Respiratory exam: PRESENT: decreased breath sounds, prolonged expiratory phas, rhonchi, symmetrical, unlabored, wheezes Cardiovascular exam: PRESENT: RRR, +S1, +S2 Pulses: PRESENT: normal radial pulses GI/Abdominal exam: PRESENT: other - Ostomy status post surgery Rectal exam: PRESENT: deferred Gentrourinary exam: PRESENT: indwelling catheter Musculoskeletal exam: PRESENT: normal inspection Skin exam: PRESENT: dry, warm Results Laboratory Results: 01/04/17 04:40 01/04/17 04:40 01/04/17 01/04/17 01/04/17 04:40 04:40 04:40 WBC 9.6 RBC 3.00 L Hgb 9.5 L Hct 27.7 L MCV 92 MCH 31.5 MCHC 34.1 RDW 13.4 Plt Count 352 Seg Neutrophils % 79.0 H Lymphocytes % 9.8 L Monocytes % 6.1 Eosinophils % 4.0 Basophils % 1.1 Absolute Neutrophils 7.6 Absolute Lymphocytes 0.9 Absolute Monocytes 0.6 Absolute Eosinophils 0.4 Absolute Basophils 0.1 Carbonic Acid 1.33 HCO3/H2CO3 Ratio 26:1 ABG pH 7.51 H ABG pCO2 44.1 ABG pO2 107.1 H ABG HCO3 34.7 H ABG O2 Saturation 98.3 H ABG Base Excess 10.7 FiO2 30% Sodium 140.3 Potassium 4.0 Chloride 101 Carbon Dioxide 34 H Anion Gap 5 BUN 45 H Creatinine 1.40 H Est GFR ( Amer) 59 L Est GFR (Non-Af Amer) 49 L Glucose 187 H Calcium 8.1 L Magnesium 2.2 12/24/16 12/24/16 12/24/16 16:50 18:10 21:50 Creatine Kinase 29 L 72 CK-MB (CK-2) Troponin I 0.036 12/24/16 12/25/16 12/25/16 21:50 00:35 00:35 Creatine Kinase 66 CK-MB (CK-2) Troponin I 0.038 0.044 12/25/16 12/25/16 21:50 21:50 Creatine Kinase 26 L CK-MB (CK-2) 0.59 Troponin I 0.033 Impressions: Chest/Abdomen CTA 12/24/16 00:00 IMPRESSION: 1. NORMAL CTA OF THE CHEST. NO PULMONARY EMBOLI. 2. MODERATE BILATERAL PLEURAL EFFUSIONS. DENSE CONSOLIDATION IN THE LOWER LOBES DUE TO ATELECTASIS. CANNOT EXCLUDE PNEUMONIA. 3. FINDINGS IN THE UPPER ABDOMEN DESCRIBED. POSTOPERATIVE TINY BUBBLES OF FREE AIR. DISTENDED STOMACH AND VISUALIZED SMALL BOWEL. Chest CT 12/28/16 00:00 IMPRESSION: Small bilateral pleural effusions are again identified. The previously described associated airspace consolidation most consistent with atelectatic changes appears improved. There has been interval development of fairly diffuse patchy ground-glass opacities which are slightly more pronounced in the right lung as compared to the left. These could represent areas of pulmonary edema or developing infiltrates. Other findings as noted above KUB X-Ray 12/28/16 00:00 IMPRESSION: Nasogastric tube projects over the lumen of the stomach. Multiple dilated loops of small bowel noted throughout the abdomen have decreased in comparison the prior study. Head CT 01/01/17 00:00 IMPRESSION: CHRONIC CHANGES OF ATROPHY AND MICROVASCULAR ISCHEMIA. NO ACUTE PROCESS. Abdomen/Pelvis CT 01/03/17 14:07 IMPRESSION: 1. SURGICAL CHANGES DESCRIBED WITH SUBTOTAL COLECTOMY AND ILEOSTOMY IN THE RIGHT LOWER QUADRANT. THERE IS NO SIGNIFICANT DISTENTION OF THE STOMACH OR SMALL BOWEL DILATION. CONTRAST FILLS THE ENTIRE SMALL BOWEL TO THE ILEOSTOMY WITH NO EVIDENCE OF BOWEL OBSTRUCTION. 2. MODERATE FREE FLUID IN THE ABDOMEN AND PELVIS. 3. OTHER INCIDENTAL FINDINGS ABOVE. Chest X-Ray 01/04/17 06:00 IMPRESSION: Tip of an endotracheal tube is above the thoracic inlet; recommend 3.5 cm advancement. No acute cardiopulmonary findings. Assessment & Plan - Diagnosis (1) Acute renal failure Qualifiers: Acute renal failure type: unspecified Qualified Code(s): N17.9 - Acute kidney failure, unspecified Is this a current diagnosis for this admission?: Yes (2) Acute respiratory failure with hypoxia and hypercapnia Is this a current diagnosis for this admission?: Yes (3) Aspiration into respiratory tract Is this a current diagnosis for this admission?: Yes (4) Septic shock Is this a current diagnosis for this admission?: No - Time Critical Time spent with patient: 35 or more minutes - Discussed at length with primary care provider nurse and other members of the team including a prior discussion with Dr. Gregory 45 minutes
--- NOTE | 2017-01-04 18:25 | PDOC PROGRESS REPORT ---
Subjective Progress Note for:: 01/03/17 Subjective:: re-Intubated and sedated Physical Exam Vital Signs: Temp Pulse Resp BP Pulse Ox 99.5 F 75 20 117/49 L 100 01/04/17 18:00 01/04/17 18:00 01/04/17 18:00 01/04/17 18:00 01/04/17 18:00 Pulse Oximeter Continuous Start: 12/24/16 22: 07 Freq: Status: Complete Document 12/24/16 20:00 [facility] (Rec: 12/24/16 22:09 [facility] [email or web address]) Pulse Oximetry Assessment Oxygen Saturation (92-100) 100 Oxygen Flow Rate (L/min) 12 Oxygen Delivery Method Non-Rebreather Fraction of Inspired Oxygen (FIO2) 100 Equipment Usage Initial Set Up Continuous Pulse Oximeter 24 Hour Charge Charge Now Continuous SpO2 Machine # [id number] Intake & Output 01/03/17 01/04/17 01/05/17 06:59 06:59 06:59 Intake Total 1765 0683 1905 Output Total 3850 3520 1000 Balance -2085 -997 905 Weight 77.9 kg 77.1 kg General appearance: PRESENT: no acute distress, disheveled, thin, well-developed Head exam: PRESENT: atraumatic, normocephalic Eye exam: PRESENT: conjunctiva pale, EOMI Mouth exam: PRESENT: dry mucosa, neck supple, tongue midline, other - ET tube in place Neck exam: ABSENT: carotid bruit, JVD, lymphadenopathy, thyromegaly Respiratory exam: PRESENT: decreased breath sounds, prolonged expiratory phas, rales, rhonchi, symmetrical, unlabored Cardiovascular exam: PRESENT: RRR, +S1, +S2 Pulses: PRESENT: normal radial pulses GI/Abdominal exam: PRESENT: other - Ostomy in place status post surgery Rectal exam: PRESENT: deferred Gentrourinary exam: PRESENT: indwelling catheter Musculoskeletal exam: PRESENT: normal inspection Skin exam: PRESENT: dry, warm Results Laboratory Results: 01/04/17 04:40 01/04/17 04:40 01/04/17 01/04/17 01/04/17 04:40 04:40 04:40 WBC 9.6 RBC 3.00 L Hgb 9.5 L Hct 27.7 L MCV 92 MCH 31.5 MCHC 34.1 RDW 13.4 Plt Count 352 Seg Neutrophils % 79.0 H Lymphocytes % 9.8 L Monocytes % 6.1 Eosinophils % 4.0 Basophils % 1.1 Absolute Neutrophils 7.6 Absolute Lymphocytes 0.9 Absolute Monocytes 0.6 Absolute Eosinophils 0.4 Absolute Basophils 0.1 Carbonic Acid 1.33 HCO3/H2CO3 Ratio 26:1 ABG pH 7.51 H ABG pCO2 44.1 ABG pO2 107.1 H ABG HCO3 34.7 H ABG O2 Saturation 98.3 H ABG Base Excess 10.7 FiO2 30% Sodium 140.3 Potassium 4.0 Chloride 101 Carbon Dioxide 34 H Anion Gap 5 BUN 45 H Creatinine 1.40 H Est GFR ( Amer) 59 L Est GFR (Non-Af Amer) 49 L Glucose 187 H Calcium 8.1 L Magnesium 2.2 12/24/16 12/24/16 12/24/16 16:50 18:10 21:50 Creatine Kinase 29 L 72 CK-MB (CK-2) Troponin I 0.036 12/24/16 12/25/16 12/25/16 21:50 00:35 00:35 Creatine Kinase 66 CK-MB (CK-2) Troponin I 0.038 0.044 12/25/16 12/25/16 21:50 21:50 Creatine Kinase 26 L CK-MB (CK-2) 0.59 Troponin I 0.033 Impressions: Chest/Abdomen CTA 12/24/16 00:00 IMPRESSION: 1. NORMAL CTA OF THE CHEST. NO PULMONARY EMBOLI. 2. MODERATE BILATERAL PLEURAL EFFUSIONS. DENSE CONSOLIDATION IN THE LOWER LOBES DUE TO ATELECTASIS. CANNOT EXCLUDE PNEUMONIA. 3. FINDINGS IN THE UPPER ABDOMEN DESCRIBED. POSTOPERATIVE TINY BUBBLES OF FREE AIR. DISTENDED STOMACH AND VISUALIZED SMALL BOWEL. Chest CT 12/28/16 00:00 IMPRESSION: Small bilateral pleural effusions are again identified. The previously described associated airspace consolidation most consistent with atelectatic changes appears improved. There has been interval development of fairly diffuse patchy ground-glass opacities which are slightly more pronounced in the right lung as compared to the left. These could represent areas of pulmonary edema or developing infiltrates. Other findings as noted above KUB X-Ray 12/28/16 00:00 IMPRESSION: Nasogastric tube projects over the lumen of the stomach. Multiple dilated loops of small bowel noted throughout the abdomen have decreased in comparison the prior study. Head CT 01/01/17 00:00 IMPRESSION: CHRONIC CHANGES OF ATROPHY AND MICROVASCULAR ISCHEMIA. NO ACUTE PROCESS. Abdomen/Pelvis CT 01/03/17 14:07 IMPRESSION: 1. SURGICAL CHANGES DESCRIBED WITH SUBTOTAL COLECTOMY AND ILEOSTOMY IN THE RIGHT LOWER QUADRANT. THERE IS NO SIGNIFICANT DISTENTION OF THE STOMACH OR SMALL BOWEL DILATION. CONTRAST FILLS THE ENTIRE SMALL BOWEL TO THE ILEOSTOMY WITH NO EVIDENCE OF BOWEL OBSTRUCTION. 2. MODERATE FREE FLUID IN THE ABDOMEN AND PELVIS. 3. OTHER INCIDENTAL FINDINGS ABOVE. Chest X-Ray 01/04/17 06:00 IMPRESSION: Tip of an endotracheal tube is above the thoracic inlet; recommend 3.5 cm advancement. No acute cardiopulmonary findings. Assessment & Plan - Diagnosis (1) Acute renal failure Qualifiers: Acute renal failure type: unspecified Qualified Code(s): N17.9 - Acute kidney failure, unspecified Is this a current diagnosis for this admission?: Yes (2) Acute respiratory failure with hypoxia and hypercapnia Is this a current diagnosis for this admission?: YesPlan: Reintubated could not withstand prolonged work of breathing (3) Aspiration into respiratory tract Is this a current diagnosis for this admission?: YesPlan: + cultues ,afebrile wbc normal off abx (4) Septic shock Is this a current diagnosis for this admission?: Yes - Time Critical Time spent with patient: 35 or more minutes
[2017-01-05] MEDS: ERYTHROMYCIN LACTOBIONATE 250 MG in NORMAL SALINE 100 ML IV SCH ×3 (01:49→17:09)
[2017-01-05] MEDS: AMINO ACIDS 5%/D25W 1,000 ML IV PRN ×2 (01:50→15:28)
[2017-01-05 04:33] LABS: ARTERIAL BLOOD BASE EXCESS 7.9 mmol/L; ARTERIAL BLOOD O2 SATURATION 97.1 % (94-98)
[2017-01-05 04:35] LABS: ABSOLUTE BASOPHILS # (AUTO) 0.1 10^3/uL (0.0-0.2); ABSOLUTE EOSINOPHILS # (AUTO) 0.3 10^3/uL (0.0-0.6); ABSOLUTE LYMPHOCYTES (AUTO) 0.7 10^3/uL (0.5-4.7); ABSOLUTE MONOCYTES (AUTO) 0.6 10^3/uL (0.1-1.4); ABSOLUTE NEUT (AUTO) 7.8 10^3/uL (1.7-8.2); BASOPHILS % (AUTO) 0.7 % (0-2); EOSINOPHILS % (AUTO) 3.2 % (0-6); HEMATOCRIT 26.4 % (37.9-51.0); HGB HCT DIFFERENCE 0.6; LYMPHOCYTES % (AUTO) 7.5 % (13-45); MEAN CORPUSCULAR HEMOGLOBIN 31.9 pg (27.0-33.4); MEAN CORPUSCULAR HGB CONC 34.1 g/dL (32.0-36.0); MEAN CORPUSCULAR VOLUME 94 fl (80-97); MONOCYTES % (AUTO) 6.3 % (3-13); RED BLOOD COUNT 2.82 10^6/uL (4.35-5.55); RED CELL DISTRIBUTION WIDTH 13.3 % (11.5-14.0); SEGMENTED NEUTROPHILS % (AUTO) 82.3 % (42-78); WHITE BLOOD COUNT 9.5 10^3/uL (4.0-10.5)
[2017-01-05 04:45] LABS: ALANINE AMINOTRANSFERASE 54 U/L (21-72); ALBUMIN 2.1 g/dL (3.5-5.0); ALKALINE PHOSPHATASE 134 U/L (38-126); ANION GAP 5 (5-19); ASPARTATE AMINO TRANSFERASE 25 U/L (17-59); BILIRUBIN,DIRECT 0.3 mg/dL (0.0-0.4); BILIRUBIN,TOTAL 0.3 mg/dL (0.2-1.3); BLOOD UREA NITROGEN 42 mg/dL (7-20); CALCIUM 8.1 mg/dL (8.4-10.2); CARBON DIOXIDE 31 mmol/L (22-30); CHLORIDE 104 mmol/L (98-107); CREATININE RESULT 1.36 mg/dL (0.52-1.25); GLUCOSE 186 mg/dL (75-110); MAGNESIUM 2.3 mg/dL (1.6-2.3); PHOSPHORUS 3.4 mg/dL (2.5-4.5); POTASSIUM 4.7 mmol/L (3.6-5.0); SODIUM 139.6 mmol/L (137-145); TOTAL PROTEIN 4.8 g/dL (6.3-8.2)
[2017-01-05] MEDS: PROPOFOL 100 ML IV PRN ×4 (04:46→22:12)
[2017-01-05 04:52] LABS: PREALBUMIN 16.8 mg/dL (17.6-36.0)
[2017-01-05] MEDS: METOCLOPRAMIDE HCL INJ/PF 10 MG/2 ML SDV IV SCH ×4 (05:07→23:25)
[2017-01-05] MEDS: INSULIN REG, HUMAN 100 UNIT/ML 3 ML VIAL (PYX) SUBCUT PRN ×2 (05:35→23:26)
--- NOTE | 2017-01-05 07:23 | RADIOLOGY REPORT (SQ) ---
EXAM DESCRIPTION: CHEST SINGLE VIEW COMPLETED DATE/TIME: 01/05/2017 6:30 am REASON FOR STUDY: resp faiklure COMPARISON: None. EXAM PARAMETERS: NUMBER OF VIEWS: One view. TECHNIQUE: Single frontal radiographic view of the chest acquired. RADIATION DOSE: NA LIMITATIONS: None. FINDINGS: LUNGS AND PLEURA: Mild interstitial markings. MEDIASTINUM AND HILAR STRUCTURES: No masses. Contour normal. HEART AND VASCULAR STRUCTURES: Heart normal in size. Atherosclerosis. BONES: No acute findings. HARDWARE: Adequate appearing endotracheal tube and left subclavian central line. OTHER: No other significant finding. IMPRESSION: No significant interval change. Lines and tubes. TECHNICAL DOCUMENTATION: JOB ID: [id number]
[2017-01-05] MEDS: ENOXAPARIN SODIUM INJ 40 MG/0.4 ML DISP.SYRIN SUBCUT SCH (08:16)
[2017-01-05] MEDS ORDERED: VECURONIUM BROMIDE INJ 10 MG VIAL IV ONE (08:28)
[2017-01-05] MEDS ORDERED: LIDOCAINE 1% INJ-PF (10 MG/ML) 30 ML SDV ONE (08:58)
[2017-01-05] MEDS ORDERED: LIDOCAINE 2% JELLY 30 ML TUBE ONE (08:58)
--- NOTE | 2017-01-05 09:02 | PDOC PROGRESS REPORT ---
Subjective Progress Note for:: 01/05/17 Subjective:: Patient remained on vasopressor. Remain on the ventilator as well. Plan for tracheostomy and feeding tube placement. No reported temperature spikes or respiratory distress. WBC remains normal. Creatinine is stable. Electrolytes were likewise stable. On total parenteral nutrition. Urine output positive balance today. Chest x-ray remains unchanged. Physical Exam Vital Signs: Temp Pulse Resp BP Pulse Ox 97.9 F 79 11 L 125/70 100 01/05/17 08:00 01/05/17 08:00 01/05/17 08:00 01/05/17 08:00 01/05/17 08:00 Pulse Oximeter Continuous Start: 12/24/16 22: 07 Freq: Status: Complete Document 12/24/16 20:00 [facility] (Rec: 12/24/16 22:09 [facility] [email or web address]) Pulse Oximetry Assessment Oxygen Saturation (92-100) 100 Oxygen Flow Rate (L/min) 12 Oxygen Delivery Method Non-Rebreather Fraction of Inspired Oxygen (FIO2) 100 Equipment Usage Initial Set Up Continuous Pulse Oximeter 24 Hour Charge Charge Now Continuous SpO2 Machine # [id number] Intake & Output 01/04/17 01/05/17 01/06/17 06:59 06:59 06:59 Intake Total 2523 3525 Output Total 3520 2375 Balance -997 1150 Weight 77.1 kg 77.9 kg General appearance: PRESENT: no acute distress, other Head exam: PRESENT: normocephalic - Intubated and sedated Eye exam: PRESENT: conjunctiva pale Mouth exam: PRESENT: moist, neck supple Neck exam: ABSENT: JVD Respiratory exam: PRESENT: clear to auscultation annabel. ABSENT: rhonchi, wheezes Cardiovascular exam: PRESENT: RRR. ABSENT: gallop GI/Abdominal exam: PRESENT: hypoactive bowel sounds, soft Extremities exam: ABSENT: pedal edema Neurological exam: PRESENT: altered Skin exam: PRESENT: dry, warm. ABSENT: cyanosis Results Laboratory Results: 01/05/17 04:20 01/05/17 04:20 01/05/17 01/05/17 01/05/17 04:20 04:20 04:20 WBC 9.5 RBC 2.82 L Hgb 9.0 L Hct 26.4 L MCV 94 MCH 31.9 MCHC 34.1 RDW 13.3 Plt Count 293 Seg Neutrophils % 82.3 H Lymphocytes % 7.5 L Monocytes % 6.3 Eosinophils % 3.2 Basophils % 0.7 Absolute Neutrophils 7.8 Absolute Lymphocytes 0.7 Absolute Monocytes 0.6 Absolute Eosinophils 0.3 Absolute Basophils 0.1 Carbonic Acid 1.40 H HCO3/H2CO3 Ratio 23:1 ABG pH 7.46 H ABG pCO2 46.6 H ABG pO2 88.8 ABG HCO3 32.6 H ABG O2 Saturation 97.1 ABG Base Excess 7.9 FiO2 30% Sodium 139.6 Potassium 4.7 Chloride 104 Carbon Dioxide 31 H Anion Gap 5 BUN 42 H Creatinine 1.36 H Est GFR ( Amer) > 60 Est GFR (Non-Af Amer) 50 L Glucose 186 H Calcium 8.1 L Phosphorus 3.4 Magnesium 2.3 Total Bilirubin 0.3 AST 25 ALT 54 Alkaline Phosphatase 134 H Total Protein 4.8 L Albumin 2.1 L Prealbumin 16.8 L 01/03/17 08:30 Tracheal Aspirate Gram Stain - Final 12/24/16 12/24/16 12/24/16 16:50 18:10 21:50 Creatine Kinase 29 L 72 CK-MB (CK-2) Troponin I 0.036 12/24/16 12/25/16 12/25/16 21:50 00:35 00:35 Creatine Kinase 66 CK-MB (CK-2) Troponin I 0.038 0.044 12/25/16 12/25/16 21:50 21:50 Creatine Kinase 26 L CK-MB (CK-2) 0.59 Troponin I 0.033 Impressions: Chest/Abdomen CTA 12/24/16 00:00 IMPRESSION: 1. NORMAL CTA OF THE CHEST. NO PULMONARY EMBOLI. 2. MODERATE BILATERAL PLEURAL EFFUSIONS. DENSE CONSOLIDATION IN THE LOWER LOBES DUE TO ATELECTASIS. CANNOT EXCLUDE PNEUMONIA. 3. FINDINGS IN THE UPPER ABDOMEN DESCRIBED. POSTOPERATIVE TINY BUBBLES OF FREE AIR. DISTENDED STOMACH AND VISUALIZED SMALL BOWEL. Chest CT 12/28/16 00:00 IMPRESSION: Small bilateral pleural effusions are again identified. The previously described associated airspace consolidation most consistent with atelectatic changes appears improved. There has been interval development of fairly diffuse patchy ground-glass opacities which are slightly more pronounced in the right lung as compared to the left. These could represent areas of pulmonary edema or developing infiltrates. Other findings as noted above KUB X-Ray 12/28/16 00:00 IMPRESSION: Nasogastric tube projects over the lumen of the stomach. Multiple dilated loops of small bowel noted throughout the abdomen have decreased in comparison the prior study. Head CT 01/01/17 00:00 IMPRESSION: CHRONIC CHANGES OF ATROPHY AND MICROVASCULAR ISCHEMIA. NO ACUTE PROCESS. Abdomen/Pelvis CT 01/03/17 14:07 IMPRESSION: 1. SURGICAL CHANGES DESCRIBED WITH SUBTOTAL COLECTOMY AND ILEOSTOMY IN THE RIGHT LOWER QUADRANT. THERE IS NO SIGNIFICANT DISTENTION OF THE STOMACH OR SMALL BOWEL DILATION. CONTRAST FILLS THE ENTIRE SMALL BOWEL TO THE ILEOSTOMY WITH NO EVIDENCE OF BOWEL OBSTRUCTION. 2. MODERATE FREE FLUID IN THE ABDOMEN AND PELVIS. 3. OTHER INCIDENTAL FINDINGS ABOVE. Chest X-Ray 01/05/17 06:00 IMPRESSION: No significant interval change. Lines and tubes. Assessment & Plan - Diagnosis (1) Acute hypoxemic respiratory failure Is this a current diagnosis for this admission?: Yes (2) Aspiration pneumonia Qualifiers: Aspiration pneumonia type: unspecified Laterality: bilateral Lung location: lower lobe of lung Qualified Code(s): J69.0 - Pneumonitis due to inhalation of food and vomit Is this a current diagnosis for this admission?: Yes (3) Adynamic ileus Is this a current diagnosis for this admission?: Yes (4) Toxic megacolon Is this a current diagnosis for this admission?: Yes (5) Sigmoid volvulus Is this a current diagnosis for this admission?: Yes (6) Acute renal failure Qualifiers: Acute renal failure type: unspecified Qualified Code(s): N17.9 - Acute kidney failure, unspecified Is this a current diagnosis for this admission?: Yes (7) Chronic kidney disease, stage II (mild) Is this a current diagnosis for this admission?: Yes (8) Nodule of spleen Is this a current diagnosis for this admission?: Yes (9) Essential hypertension Is this a current diagnosis for this admission?: Yes (10) Hyperlipidemia, acquired Is this a current diagnosis for this admission?: Yes (11) BPH (benign prostatic hyperplasia) Qualifiers: Lower urinary tract symptom presence: unspecified whether lower urinary tract symptoms present Qualified Code(s): N40.0 - Benign prostatic hyperplasia without lower urinary tract symptoms Is this a current diagnosis for this admission?: Yes (12) Atherosclerotic vascular disease Is this a current diagnosis for this admission?: Yes (13) Hypotension Qualifiers: Hypotension type: unspecified hypotension type Qualified Code(s): I95.9 - Hypotension, unspecified Is this a current diagnosis for this admission?: Yes (14) Hypoxia Is this a current diagnosis for this admission?: Yes - Time Time Spent with patient: 25-34 minutes - Plan Summary Plan Summary: Continue antibiotics. Continue total parenteral nutrition. Follow cultures. Continue to monitor electrolytes. Weaning from the ventilator per pulmonary service. For tracheostomy and PEG tube placement. Continue supportive care.
[2017-01-05] MEDS ORDERED: LIDOCAINE 2%/EPINEPHRINE INJ 20 ML VIAL ONE (09:06)
--- NOTE | 2017-01-05 09:42 | PDOC PROGRESS REPORT ---
Subjective Progress Note for:: 01/05/17 Subjective:: Intubated sedated Physical Exam Vital Signs: Temp Pulse Resp BP Pulse Ox 97.9 F 79 11 L 125/70 100 01/05/17 08:00 01/05/17 08:00 01/05/17 08:00 01/05/17 08:00 01/05/17 08:00 Pulse Oximeter Continuous Start: 12/24/16 22: 07 Freq: Status: Complete Document 12/24/16 20:00 [facility] (Rec: 12/24/16 22:09 [facility] [email or web address]) Pulse Oximetry Assessment Oxygen Saturation (92-100) 100 Oxygen Flow Rate (L/min) 12 Oxygen Delivery Method Non-Rebreather Fraction of Inspired Oxygen (FIO2) 100 Equipment Usage Initial Set Up Continuous Pulse Oximeter 24 Hour Charge Charge Now Continuous SpO2 Machine # [id number] Intake & Output 01/04/17 01/05/17 01/06/17 06:59 06:59 06:59 Intake Total 2523 3525 Output Total 3520 2375 Balance -997 1150 Weight 77.1 kg 77.9 kg General appearance: PRESENT: no acute distress Respiratory exam: PRESENT: clear to auscultation annabel Cardiovascular exam: PRESENT: RRR GI/Abdominal exam: PRESENT: other - Soft nondistended nontender to palpation ostomy functioning well Results Laboratory Results: 01/05/17 04:20 01/05/17 04:20 01/05/17 01/05/17 01/05/17 04:20 04:20 04:20 WBC 9.5 RBC 2.82 L Hgb 9.0 L Hct 26.4 L MCV 94 MCH 31.9 MCHC 34.1 RDW 13.3 Plt Count 293 Seg Neutrophils % 82.3 H Lymphocytes % 7.5 L Monocytes % 6.3 Eosinophils % 3.2 Basophils % 0.7 Absolute Neutrophils 7.8 Absolute Lymphocytes 0.7 Absolute Monocytes 0.6 Absolute Eosinophils 0.3 Absolute Basophils 0.1 Carbonic Acid 1.40 H HCO3/H2CO3 Ratio 23:1 ABG pH 7.46 H ABG pCO2 46.6 H ABG pO2 88.8 ABG HCO3 32.6 H ABG O2 Saturation 97.1 ABG Base Excess 7.9 FiO2 30% Sodium 139.6 Potassium 4.7 Chloride 104 Carbon Dioxide 31 H Anion Gap 5 BUN 42 H Creatinine 1.36 H Est GFR ( Amer) > 60 Est GFR (Non-Af Amer) 50 L Glucose 186 H Calcium 8.1 L Phosphorus 3.4 Magnesium 2.3 Total Bilirubin 0.3 AST 25 ALT 54 Alkaline Phosphatase 134 H Total Protein 4.8 L Albumin 2.1 L Prealbumin 16.8 L 01/03/17 08:30 Tracheal Aspirate Gram Stain - Final 12/24/16 12/24/16 12/24/16 16:50 18:10 21:50 Creatine Kinase 29 L 72 CK-MB (CK-2) Troponin I 0.036 12/24/16 12/25/16 12/25/16 21:50 00:35 00:35 Creatine Kinase 66 CK-MB (CK-2) Troponin I 0.038 0.044 12/25/16 12/25/16 21:50 21:50 Creatine Kinase 26 L CK-MB (CK-2) 0.59 Troponin I 0.033 Impressions: Chest/Abdomen CTA 12/24/16 00:00 IMPRESSION: 1. NORMAL CTA OF THE CHEST. NO PULMONARY EMBOLI. 2. MODERATE BILATERAL PLEURAL EFFUSIONS. DENSE CONSOLIDATION IN THE LOWER LOBES DUE TO ATELECTASIS. CANNOT EXCLUDE PNEUMONIA. 3. FINDINGS IN THE UPPER ABDOMEN DESCRIBED. POSTOPERATIVE TINY BUBBLES OF FREE AIR. DISTENDED STOMACH AND VISUALIZED SMALL BOWEL. Chest CT 12/28/16 00:00 IMPRESSION: Small bilateral pleural effusions are again identified. The previously described associated airspace consolidation most consistent with atelectatic changes appears improved. There has been interval development of fairly diffuse patchy ground-glass opacities which are slightly more pronounced in the right lung as compared to the left. These could represent areas of pulmonary edema or developing infiltrates. Other findings as noted above KUB X-Ray 12/28/16 00:00 IMPRESSION: Nasogastric tube projects over the lumen of the stomach. Multiple dilated loops of small bowel noted throughout the abdomen have decreased in comparison the prior study. Head CT 01/01/17 00:00 IMPRESSION: CHRONIC CHANGES OF ATROPHY AND MICROVASCULAR ISCHEMIA. NO ACUTE PROCESS. Abdomen/Pelvis CT 01/03/17 14:07 IMPRESSION: 1. SURGICAL CHANGES DESCRIBED WITH SUBTOTAL COLECTOMY AND ILEOSTOMY IN THE RIGHT LOWER QUADRANT. THERE IS NO SIGNIFICANT DISTENTION OF THE STOMACH OR SMALL BOWEL DILATION. CONTRAST FILLS THE ENTIRE SMALL BOWEL TO THE ILEOSTOMY WITH NO EVIDENCE OF BOWEL OBSTRUCTION. 2. MODERATE FREE FLUID IN THE ABDOMEN AND PELVIS. 3. OTHER INCIDENTAL FINDINGS ABOVE. Chest X-Ray 01/05/17 06:00 IMPRESSION: No significant interval change. Lines and tubes. Assessment & Plan - Diagnosis (1) Toxic megacolon Is this a current diagnosis for this admission?: YesPlan: Status post total abdominal colectomy. Pending trach PEG today. Patient looks stable. (2) Aspiration pneumonia Qualifiers: Aspiration pneumonia type: unspecified Laterality: bilateral Lung location: lower lobe of lung Qualified Code(s): J69.0 - Pneumonitis due to inhalation of food and vomit Is this a current diagnosis for this admission?: Yes
[2017-01-05] MEDS: CEFEPIME 2 GM/D5W RTU 50 ML IV SCH ×2 (09:55→21:09)
[2017-01-05] MEDS ORDERED: FENTANYL CITRATE INJ/PF 100 MCG/2 ML AMPUL ONE (11:07)
[2017-01-05] MEDS ORDERED: PROPOFOL INJ 200 MG/20 ML VIAL IV ONE (11:08)
[2017-01-05] MEDS ORDERED: MIDAZOLAM 2 MG/2 ML INJ ONE (11:08)
--- NOTE | 2017-01-05 13:14 | Operative Report ---
Nonrecallable Operative Report DATE OF SURGERY: 01/05/17 PREOPERATIVE DIAGNOSIS: 1. Respiratory failure. 2. Recurrent aspiration pneumonia. 3. Delayed gastric emptying POSTOPERATIVE DIAGNOSIS: Same with diffuse hemorrhagic distal esophagitis OPERATION: 1. Operative 6 Shiley fenestrated tracheostomy tube insertion. 2. Percutaneous endoscopic gastrostomy tube placement esophagogastroduodenoscopy. 3. Placement of Dobbhoff feeding tube via PEG tube into duodenum SURGEON: JUAN A MAZARIEGOS FLOOR COVERING LAYER: MEKHI GALICIA ANESTHESIA: GA TISSUE REMOVED OR ALTERED: None COMPLICATIONS: None ESTIMATED BLOOD LOSS: Scant INTRAOPERATIVE FINDINGS: See below PROCEDURE: The patient was taken from the intensive care unit to the operating room where existing endotracheal tube was used for general anesthesia. Arms were tucked patient placed in a semi-recumbent position neck extended the neck was prepped and draped in sterile fashion for the first portion of the operation which included operative tracheostomy. Surgical plan and surgical timeout were conducted The super sternal notch with anesthetized with quarter percent Marcaine. Approximately 3-1/2 cm incision was made 2 fingerbreadths above the sternal notch. Platysma muscle divided with cautery strap muscles divided midline and the Ames retractors were used to spread the strap muscles laterally. We opened up the pre-tracheal fascia and spread this tissue. The inferior portion of the thyroid gland was cauterized minimally to permit exposure to the lower cervical trachea. A large tracheal hook was placed into the approximately third tracheal ring, and an upside down U cut into the trachea with a 15 blade. A rescue stitch of 2-0 Prolene suture was threaded through the tracheal flap. The endotracheal balloon was withdrawn, the trachea suction, and a #6 Shiley tracheostomy tube was threaded into the trachea uneventfully. Balloon insufflated, anesthetic tubing attached to the appropriate adapter and attached to the tracheostomy tube, and CO2 and oxygenation were delivered and received respectively. The tracheostomy tube was secured to the skin with 4 2-0 Prolene sutures and a trach tie applied patient tolerated this portion of the procedure well We now proceeded with part B of the operation which included EGD, PEG tube placement with Dobbhoff feeding tube placement. The rationale for this was that the patient had gastric delayed emptying, and recent surgery and we did not want to place an operative feeding tube if we could place one percutaneously. The second timeout was conducted. The subcu was removed and the flexible adult upper endoscope was advanced through the hypopharynx down the esophagus and into pocket and then the duodenum. There was no evidence of gastric or duodenal pathology except mild inflammation. There was no evidence of retained gastric contents and no gastric outlet obstruction in terms of the pylorus being completely. Of note the distal half of the esophagus had mild hemorrhagic irritation to it likely from prolonged nasogastric tube placement We proceeded to place a 20 Argentine PEG pullout tube. The skin overlying the left epigastric area was prepped and draped sterile fashion. Skin was anesthetized with 1% lidocaine. Needle and Jelco was threaded through the anterior abdominal wall into the stomach wall after suitable site for placement of the PEG was chosen with appropriate deflection to the anterior abdominal wall. The needle was removed leaving the gel composition the wire threaded through the Jelco and snared by Dr. Gregory with the endoscope and snare. The snare wire and scope were brought to the patient's oropharynx, the 20 Argentine PEG tube threaded over the wire brought out the anterior abdominal wall. Wire was removed PEG tube trimmed. We now took a 8 Argentine feeding Dobbhoff tube and amputated the distal magnetic component leaving the distal end of the feeding tube completely open. We now threaded the feeding tube through the truncated PEG tube. Endoscopically will use a snare and reinserted the endoscope, secured the end of the Dobbhoff with the snare and advanced the tip of the scope through the pylorus down into the second and possibly even the third portion of the duodenum. We released the feeding tube from the snare and brought the snare and scope out of the duodenum leaving what we believed to be the free end of the Dobbhoff tube in the duodenum. The Dobbhoff tube was secured to the PEG tube ex vivo with pink tape. We placed a locking type device over the Dobbhoff and PEG tube combo pack and used it as a pseudo- bolster approximately 2 cm from the skin level. Sterile dressings were applied. Nasogastric tube was reinserted patient on procedure well and taken to the intensive care unit in stable but guarded condition. He had no hypoxemia no significant hypertension. Portable upright chest x-ray pending time dictation.
--- NOTE | 2017-01-05 13:51 | RADIOLOGY REPORT (SQ) ---
EXAM DESCRIPTION: CHEST SINGLE VIEW COMPLETED DATE/TIME: 01/05/2017 1:40 pm REASON FOR STUDY: Status post trach placement COMPARISON: Earlier the same day. NUMBER OF VIEWS: One view. TECHNIQUE: Single frontal radiographic image of the chest acquired. LIMITATIONS: None. FINDINGS: LUNGS AND PLEURA: No pneumothorax. MEDIASTINUM AND HEART: Stable heart size and mediastinal structures. SUPPORT DEVICES: Interval placement of tracheostomy. Left-sided port and nasogastric tube positions unchanged. BONY STRUCTURES: No acute findings. HARDWARE: None. OTHER: No other significant finding. IMPRESSION: Appropriate position of tracheostomy. No pneumothorax.
--- NOTE | 2017-01-05 14:38 | PDOC PROGRESS REPORT ---
Subjective Progress Note for:: 01/05/17 Subjective:: Intubated and sedated Physical Exam Vital Signs: Temp Pulse Resp BP Pulse Ox 97.9 F 79 11 L 125/70 100 01/05/17 08:00 01/05/17 08:00 01/05/17 08:00 01/05/17 08:00 01/05/17 08:00 Pulse Oximeter Continuous Start: 12/24/16 22: 07 Freq: Status: Complete Document 12/24/16 20:00 [facility] (Rec: 12/24/16 22:09 [facility] [email or web address]) Pulse Oximetry Assessment Oxygen Saturation (92-100) 100 Oxygen Flow Rate (L/min) 12 Oxygen Delivery Method Non-Rebreather Fraction of Inspired Oxygen (FIO2) 100 Equipment Usage Initial Set Up Continuous Pulse Oximeter 24 Hour Charge Charge Now Continuous SpO2 Machine # [id number] Intake & Output 01/04/17 01/05/17 01/06/17 06:59 06:59 06:59 Intake Total 2523 3525 Output Total 3520 2375 Balance -997 1150 Weight 77.1 kg 77.9 kg General appearance: PRESENT: no acute distress, disheveled, thin, well-developed Head exam: PRESENT: atraumatic, normocephalic Eye exam: PRESENT: conjunctiva pale Mouth exam: PRESENT: dry mucosa, neck supple, tongue midline, other - Endotracheal tube Neck exam: ABSENT: carotid bruit, JVD, lymphadenopathy, thyromegaly Respiratory exam: PRESENT: decreased breath sounds, prolonged expiratory phas, rales, rhonchi, symmetrical - At the bases, unlabored Cardiovascular exam: PRESENT: RRR, +S1, +S2 Pulses: PRESENT: normal radial pulses GI/Abdominal exam: PRESENT: diminished bowel sounds, other - Ostomy status post surgery Rectal exam: PRESENT: deferred Gentrourinary exam: PRESENT: indwelling catheter Musculoskeletal exam: PRESENT: normal inspection Skin exam: PRESENT: dry, warm Results Laboratory Results: 01/05/17 04:20 01/05/17 04:20 01/05/17 01/05/17 01/05/17 04:20 04:20 04:20 WBC 9.5 RBC 2.82 L Hgb 9.0 L Hct 26.4 L MCV 94 MCH 31.9 MCHC 34.1 RDW 13.3 Plt Count 293 Seg Neutrophils % 82.3 H Lymphocytes % 7.5 L Monocytes % 6.3 Eosinophils % 3.2 Basophils % 0.7 Absolute Neutrophils 7.8 Absolute Lymphocytes 0.7 Absolute Monocytes 0.6 Absolute Eosinophils 0.3 Absolute Basophils 0.1 Carbonic Acid 1.40 H HCO3/H2CO3 Ratio 23:1 ABG pH 7.46 H ABG pCO2 46.6 H ABG pO2 88.8 ABG HCO3 32.6 H ABG O2 Saturation 97.1 ABG Base Excess 7.9 FiO2 30% Sodium 139.6 Potassium 4.7 Chloride 104 Carbon Dioxide 31 H Anion Gap 5 BUN 42 H Creatinine 1.36 H Est GFR ( Amer) > 60 Est GFR (Non-Af Amer) 50 L Glucose 186 H Calcium 8.1 L Phosphorus 3.4 Magnesium 2.3 Total Bilirubin 0.3 AST 25 ALT 54 Alkaline Phosphatase 134 H Total Protein 4.8 L Albumin 2.1 L Prealbumin 16.8 L 01/03/17 08:30 Tracheal Aspirate Gram Stain - Final 12/24/16 12/24/16 12/24/16 16:50 18:10 21:50 Creatine Kinase 29 L 72 CK-MB (CK-2) Troponin I 0.036 12/24/16 12/25/16 12/25/16 21:50 00:35 00:35 Creatine Kinase 66 CK-MB (CK-2) Troponin I 0.038 0.044 12/25/16 12/25/16 21:50 21:50 Creatine Kinase 26 L CK-MB (CK-2) 0.59 Troponin I 0.033 Impressions: Chest/Abdomen CTA 12/24/16 00:00 IMPRESSION: 1. NORMAL CTA OF THE CHEST. NO PULMONARY EMBOLI. 2. MODERATE BILATERAL PLEURAL EFFUSIONS. DENSE CONSOLIDATION IN THE LOWER LOBES DUE TO ATELECTASIS. CANNOT EXCLUDE PNEUMONIA. 3. FINDINGS IN THE UPPER ABDOMEN DESCRIBED. POSTOPERATIVE TINY BUBBLES OF FREE AIR. DISTENDED STOMACH AND VISUALIZED SMALL BOWEL. Chest CT 12/28/16 00:00 IMPRESSION: Small bilateral pleural effusions are again identified. The previously described associated airspace consolidation most consistent with atelectatic changes appears improved. There has been interval development of fairly diffuse patchy ground-glass opacities which are slightly more pronounced in the right lung as compared to the left. These could represent areas of pulmonary edema or developing infiltrates. Other findings as noted above KUB X-Ray 12/28/16 00:00 IMPRESSION: Nasogastric tube projects over the lumen of the stomach. Multiple dilated loops of small bowel noted throughout the abdomen have decreased in comparison the prior study. Head CT 01/01/17 00:00 IMPRESSION: CHRONIC CHANGES OF ATROPHY AND MICROVASCULAR ISCHEMIA. NO ACUTE PROCESS. Abdomen/Pelvis CT 01/03/17 14:07 IMPRESSION: 1. SURGICAL CHANGES DESCRIBED WITH SUBTOTAL COLECTOMY AND ILEOSTOMY IN THE RIGHT LOWER QUADRANT. THERE IS NO SIGNIFICANT DISTENTION OF THE STOMACH OR SMALL BOWEL DILATION. CONTRAST FILLS THE ENTIRE SMALL BOWEL TO THE ILEOSTOMY WITH NO EVIDENCE OF BOWEL OBSTRUCTION. 2. MODERATE FREE FLUID IN THE ABDOMEN AND PELVIS. 3. OTHER INCIDENTAL FINDINGS ABOVE. Chest X-Ray 01/05/17 06:00 IMPRESSION: No significant interval change. Lines and tubes. Assessment & Plan - Diagnosis (1) Acute renal failure Qualifiers: Acute renal failure type: unspecified Qualified Code(s): N17.9 - Acute kidney failure, unspecified Is this a current diagnosis for this admission?: Yes (2) Acute respiratory failure with hypoxia and hypercapnia Is this a current diagnosis for this admission?: YesPlan: No significant pattern changer and repairer the last 24 hours. Patient was discussed with Dr. Bal as well as with Dr. Gregory patient will undergo tracheostomy and feeding tube placement today (3) Aspiration into respiratory tract Is this a current diagnosis for this admission?: Yes (4) Septic shock Is this a current diagnosis for this admission?: YesPlan: on vasopressor agent - Time Critical Time spent with patient: 35 or more minutes - 50 minutes
[2017-01-05] MEDS: DEXTROSE 5%-WATER 250 ML with PHENYLEPHRINE HCL 40 MG IV PRN ×2 (16:49)
[2017-01-06] MEDS: PROPOFOL 100 ML IV PRN ×4 (02:47→23:36)
[2017-01-06] MEDS: ERYTHROMYCIN LACTOBIONATE 250 MG in NORMAL SALINE 100 ML IV SCH ×3 (02:47→17:13)
[2017-01-06] MEDS: AMINO ACIDS 5%/D25W 1,000 ML IV PRN (03:33)
[2017-01-06] MEDS: METOCLOPRAMIDE HCL INJ/PF 10 MG/2 ML SDV IV SCH ×4 (05:13→23:36)
[2017-01-06 05:18] LABS: ARTERIAL BLOOD BASE EXCESS 5.2 mmol/L; ARTERIAL BLOOD O2 SATURATION 97.7 % (94-98)
[2017-01-06 05:22] LABS: HEMATOCRIT 26.7 % (37.9-51.0); HGB HCT DIFFERENCE 0.3; MEAN CORPUSCULAR HEMOGLOBIN 31.2 pg (27.0-33.4); MEAN CORPUSCULAR HGB CONC 33.7 g/dL (32.0-36.0); MEAN CORPUSCULAR VOLUME 93 fl (80-97); RED BLOOD COUNT 2.88 10^6/uL (4.35-5.55); RED CELL DISTRIBUTION WIDTH 13.5 % (11.5-14.0); WHITE BLOOD COUNT 9.3 10^3/uL (4.0-10.5)
[2017-01-06 05:43] LABS: BLOOD UREA NITROGEN 41 mg/dL (7-20); CALCIUM 8.1 mg/dL (8.4-10.2); CHLORIDE 105 mmol/L (98-107); CREATININE RESULT 1.18 mg/dL (0.52-1.25); GLUCOSE 153 mg/dL (75-110); MAGNESIUM 2.4 mg/dL (1.6-2.3); POTASSIUM 5.1 mmol/L (3.6-5.0)
[2017-01-06 06:07] LABS: CARBON DIOXIDE 31 mmol/L (22-30); SODIUM 138.9 mmol/L (137-145)
[2017-01-06 06:11] LABS: ANION GAP 3 (5-19)
[2017-01-06] MEDS: DEXTROSE 5%-WATER 250 ML with PHENYLEPHRINE HCL 40 MG IV PRN ×4 (06:40→19:48)
--- NOTE | 2017-01-06 07:51 | RADIOLOGY REPORT (SQ) ---
EXAM DESCRIPTION: CHEST SINGLE VIEW COMPLETED DATE/TIME: 01/06/2017 6:39 am REASON FOR STUDY: resp fail//pna COMPARISON: 01/05/2017. EXAM PARAMETERS: NUMBER OF VIEWS: One view. TECHNIQUE: Single frontal radiographic view of the chest acquired. RADIATION DOSE: NA LIMITATIONS: None. FINDINGS: LUNGS AND PLEURA: Small left basilar haziness -layered effusion. MEDIASTINUM AND HILAR STRUCTURES: No masses. Contour normal. HEART AND VASCULAR STRUCTURES: Normal cardiac silhouette size. Atherosclerosis. BONES: Mild osteoarthritis. HARDWARE: Tracheostomy. Left subclavian central line and partially imaged NG tube, likely adequate. OTHER: No other significant finding. IMPRESSION: No significant interval change. TECHNICAL DOCUMENTATION: JOB ID: [id number]
--- NOTE | 2017-01-06 08:30 | PDOC PROGRESS REPORT ---
Subjective Progress Note for:: 01/06/17 Subjective:: Intubated and sedated Physical Exam Vital Signs: Temp Pulse Resp BP Pulse Ox 99.0 F 74 11 L 105/54 L 100 01/05/17 16:00 01/05/17 21:33 01/06/17 06:00 01/06/17 05:57 01/06/17 07:59 Pulse Oximeter Continuous Start: 12/24/16 22: 07 Freq: Status: Complete Document 12/24/16 20:00 [facility] (Rec: 12/24/16 22:09 [facility] [email or web address]) Pulse Oximetry Assessment Oxygen Saturation (92-100) 100 Oxygen Flow Rate 12 Oxygen Delivery Method Non-Rebreather Fraction of Inspired Oxygen (FIO2) 100 Equipment Usage Initial Set Up Continuous Pulse Oximeter 24 Hour Charge Charge Now Continuous SpO2 Machine # [id number] Intake & Output 01/05/17 01/06/17 01/07/17 06:59 06:59 06:59 Intake Total 3525 3341 Output Total 0578 8315 Balance 1150 956 Weight 77.9 kg 78.6 kg General appearance: PRESENT: no acute distress, disheveled, thin, well-developed Head exam: PRESENT: atraumatic, normocephalic Eye exam: PRESENT: conjunctiva pale Mouth exam: PRESENT: dry mucosa, other - new trach # 6 Neck exam: ABSENT: carotid bruit, JVD, lymphadenopathy, thyromegaly Respiratory exam: PRESENT: decreased breath sounds, prolonged expiratory phas, rales, rhonchi, stridor, unlabored Cardiovascular exam: PRESENT: RRR, +S1, +S2 Pulses: PRESENT: normal radial pulses GI/Abdominal exam: PRESENT: other - ostomy new feeding tube Rectal exam: PRESENT: deferred Gentrourinary exam: PRESENT: indwelling catheter Musculoskeletal exam: PRESENT: normal inspection Skin exam: PRESENT: dry, warm Results Laboratory Results: 01/06/17 04:10 01/06/17 04:10 01/06/17 01/06/17 01/06/17 04:10 04:10 04:10 WBC 9.3 RBC 2.88 L Hgb 9.0 L Hct 26.7 L MCV 93 MCH 31.2 MCHC 33.7 RDW 13.5 Plt Count 306 Carbonic Acid 1.47 H HCO3/H2CO3 Ratio 20:1 ABG pH 7.42 ABG pCO2 48.8 H ABG pO2 103.0 H ABG HCO3 30.7 H ABG O2 Saturation 97.7 ABG Base Excess 5.2 FiO2 30% Sodium 138.9 Potassium 5.1 H Chloride 105 Carbon Dioxide 31 H Anion Gap 3 L BUN 41 H Creatinine 1.18 Est GFR ( Amer) > 60 Est GFR (Non-Af Amer) 59 L Glucose 153 H Calcium 8.1 L Magnesium 2.4 H 01/03/17 08:30 Catheterized Urine Urine Culture - Final NO GROWTH 2 DAYS 01/03/17 08:30 Tracheal Aspirate Gram Stain - Final 12/24/16 12/24/16 12/24/16 16:50 18:10 21:50 Creatine Kinase 29 L 72 CK-MB (CK-2) Troponin I 0.036 12/24/16 12/25/16 12/25/16 21:50 00:35 00:35 Creatine Kinase 66 CK-MB (CK-2) Troponin I 0.038 0.044 12/25/16 12/25/16 21:50 21:50 Creatine Kinase 26 L CK-MB (CK-2) 0.59 Troponin I 0.033 Impressions: Chest/Abdomen CTA 12/24/16 00:00 IMPRESSION: 1. NORMAL CTA OF THE CHEST. NO PULMONARY EMBOLI. 2. MODERATE BILATERAL PLEURAL EFFUSIONS. DENSE CONSOLIDATION IN THE LOWER LOBES DUE TO ATELECTASIS. CANNOT EXCLUDE PNEUMONIA. 3. FINDINGS IN THE UPPER ABDOMEN DESCRIBED. POSTOPERATIVE TINY BUBBLES OF FREE AIR. DISTENDED STOMACH AND VISUALIZED SMALL BOWEL. Chest CT 12/28/16 00:00 IMPRESSION: Small bilateral pleural effusions are again identified. The previously described associated airspace consolidation most consistent with atelectatic changes appears improved. There has been interval development of fairly diffuse patchy ground-glass opacities which are slightly more pronounced in the right lung as compared to the left. These could represent areas of pulmonary edema or developing infiltrates. Other findings as noted above KUB X-Ray 12/28/16 00:00 IMPRESSION: Nasogastric tube projects over the lumen of the stomach. Multiple dilated loops of small bowel noted throughout the abdomen have decreased in comparison the prior study. Head CT 01/01/17 00:00 IMPRESSION: CHRONIC CHANGES OF ATROPHY AND MICROVASCULAR ISCHEMIA. NO ACUTE PROCESS. Abdomen/Pelvis CT 01/03/17 14:07 IMPRESSION: 1. SURGICAL CHANGES DESCRIBED WITH SUBTOTAL COLECTOMY AND ILEOSTOMY IN THE RIGHT LOWER QUADRANT. THERE IS NO SIGNIFICANT DISTENTION OF THE STOMACH OR SMALL BOWEL DILATION. CONTRAST FILLS THE ENTIRE SMALL BOWEL TO THE ILEOSTOMY WITH NO EVIDENCE OF BOWEL OBSTRUCTION. 2. MODERATE FREE FLUID IN THE ABDOMEN AND PELVIS. 3. OTHER INCIDENTAL FINDINGS ABOVE. Chest X-Ray 01/06/17 06:00 IMPRESSION: No significant interval change. Assessment & Plan - Diagnosis (1) Acute renal failure Qualifiers: Acute renal failure type: unspecified Qualified Code(s): N17.9 - Acute kidney failure, unspecified Is this a current diagnosis for this admission?: Yes (2) Acute respiratory failure with hypoxia and hypercapnia Is this a current diagnosis for this admission?: Yes (3) Aspiration into respiratory tract Is this a current diagnosis for this admission?: Yes (4) Septic shock Is this a current diagnosis for this admission?: Yes - Time Critical Time spent with patient: 25-34 minutes
--- NOTE | 2017-01-06 10:07 | PDOC PROGRESS REPORT ---
Subjective Progress Note for:: 01/06/17 Subjective:: Patient now on tracheostomy. Dobbhoff tube in place reportedly getting malfunction. No reported temperature spikes, respiratory distress, tachycardia , noted however with increase gastric secretions and patient however has good output from the colostomy bag. Physical Exam Vital Signs: Temp Pulse Resp BP Pulse Ox 99.0 F 74 11 L 105/54 L 100 01/05/17 16:00 01/05/17 21:33 01/06/17 06:00 01/06/17 05:57 01/06/17 07:59 Pulse Oximeter Continuous Start: 12/24/16 22: 07 Freq: Status: Complete Document 12/24/16 20:00 [facility] (Rec: 12/24/16 22:09 [facility] [email or web address]) Pulse Oximetry Assessment Oxygen Saturation (92-100) 100 Oxygen Flow Rate (L/min) 12 Oxygen Delivery Method Non-Rebreather Fraction of Inspired Oxygen (FIO2) 100 Equipment Usage Initial Set Up Continuous Pulse Oximeter 24 Hour Charge Charge Now Continuous SpO2 Machine # [id number] Intake & Output 01/05/17 01/06/17 01/07/17 06:59 06:59 06:59 Intake Total 3525 3341 Output Total 2375 2385 Balance 1150 956 Weight 77.9 kg 78.6 kg General appearance: PRESENT: no acute distress, other - Intubated and sedated Head exam: PRESENT: normocephalic Eye exam: PRESENT: conjunctiva pale Mouth exam: PRESENT: moist, neck supple Neck exam: ABSENT: JVD Respiratory exam: PRESENT: clear to auscultation annabel, decreased breath sounds - Lower lung van. Cardiovascular exam: PRESENT: RRR. ABSENT: gallop GI/Abdominal exam: PRESENT: diminished bowel sounds, soft Extremities exam: ABSENT: pedal edema Neurological exam: PRESENT: altered - Sedated however Skin exam: PRESENT: dry, warm. ABSENT: cyanosis Results Laboratory Results: 01/06/17 04:10 01/06/17 04:10 01/06/17 01/06/17 01/06/17 04:10 04:10 04:10 WBC 9.3 RBC 2.88 L Hgb 9.0 L Hct 26.7 L MCV 93 MCH 31.2 MCHC 33.7 RDW 13.5 Plt Count 306 Carbonic Acid 1.47 H HCO3/H2CO3 Ratio 20:1 ABG pH 7.42 ABG pCO2 48.8 H ABG pO2 103.0 H ABG HCO3 30.7 H ABG O2 Saturation 97.7 ABG Base Excess 5.2 FiO2 30% Sodium 138.9 Potassium 5.1 H Chloride 105 Carbon Dioxide 31 H Anion Gap 3 L BUN 41 H Creatinine 1.18 Est GFR ( Amer) > 60 Est GFR (Non-Af Amer) 59 L Glucose 153 H Calcium 8.1 L Magnesium 2.4 H 01/03/17 08:30 Tracheal Aspirate Gram Stain - Final 01/03/17 08:30 Tracheal Aspirate Sputum Culture - Final Enterobacter Cloacae Normal Elise Absent 01/03/17 08:30 Catheterized Urine Urine Culture - Final NO GROWTH 2 DAYS 12/24/16 12/24/16 12/24/16 16:50 18:10 21:50 Creatine Kinase 29 L 72 CK-MB (CK-2) Troponin I 0.036 12/24/16 12/25/16 12/25/16 21:50 00:35 00:35 Creatine Kinase 66 CK-MB (CK-2) Troponin I 0.038 0.044 12/25/16 12/25/16 21:50 21:50 Creatine Kinase 26 L CK-MB (CK-2) 0.59 Troponin I 0.033 Impressions: Chest/Abdomen CTA 12/24/16 00:00 IMPRESSION: 1. NORMAL CTA OF THE CHEST. NO PULMONARY EMBOLI. 2. MODERATE BILATERAL PLEURAL EFFUSIONS. DENSE CONSOLIDATION IN THE LOWER LOBES DUE TO ATELECTASIS. CANNOT EXCLUDE PNEUMONIA. 3. FINDINGS IN THE UPPER ABDOMEN DESCRIBED. POSTOPERATIVE TINY BUBBLES OF FREE AIR. DISTENDED STOMACH AND VISUALIZED SMALL BOWEL. Chest CT 12/28/16 00:00 IMPRESSION: Small bilateral pleural effusions are again identified. The previously described associated airspace consolidation most consistent with atelectatic changes appears improved. There has been interval development of fairly diffuse patchy ground-glass opacities which are slightly more pronounced in the right lung as compared to the left. These could represent areas of pulmonary edema or developing infiltrates. Other findings as noted above KUB X-Ray 12/28/16 00:00 IMPRESSION: Nasogastric tube projects over the lumen of the stomach. Multiple dilated loops of small bowel noted throughout the abdomen have decreased in comparison the prior study. Head CT 01/01/17 00:00 IMPRESSION: CHRONIC CHANGES OF ATROPHY AND MICROVASCULAR ISCHEMIA. NO ACUTE PROCESS. Abdomen/Pelvis CT 01/03/17 14:07 IMPRESSION: 1. SURGICAL CHANGES DESCRIBED WITH SUBTOTAL COLECTOMY AND ILEOSTOMY IN THE RIGHT LOWER QUADRANT. THERE IS NO SIGNIFICANT DISTENTION OF THE STOMACH OR SMALL BOWEL DILATION. CONTRAST FILLS THE ENTIRE SMALL BOWEL TO THE ILEOSTOMY WITH NO EVIDENCE OF BOWEL OBSTRUCTION. 2. MODERATE FREE FLUID IN THE ABDOMEN AND PELVIS. 3. OTHER INCIDENTAL FINDINGS ABOVE. Chest X-Ray 01/06/17 06:00 IMPRESSION: No significant interval change. Assessment & Plan - Diagnosis (1) Acute hypoxemic respiratory failure Is this a current diagnosis for this admission?: Yes (2) Aspiration pneumonia Qualifiers: Aspiration pneumonia type: unspecified Laterality: bilateral Lung location: lower lobe of lung Qualified Code(s): J69.0 - Pneumonitis due to inhalation of food and vomit Is this a current diagnosis for this admission?: Yes (3) Adynamic ileus Is this a current diagnosis for this admission?: Yes (4) Toxic megacolon Is this a current diagnosis for this admission?: Yes (5) Sigmoid volvulus Is this a current diagnosis for this admission?: Yes (6) Acute renal failure Qualifiers: Acute renal failure type: unspecified Qualified Code(s): N17.9 - Acute kidney failure, unspecified Is this a current diagnosis for this admission?: Yes (7) Chronic kidney disease, stage II (mild) Is this a current diagnosis for this admission?: Yes (8) Nodule of spleen Is this a current diagnosis for this admission?: Yes (9) Essential hypertension Is this a current diagnosis for this admission?: Yes (10) Hyperlipidemia, acquired Is this a current diagnosis for this admission?: Yes (11) BPH (benign prostatic hyperplasia) Qualifiers: Lower urinary tract symptom presence: unspecified whether lower urinary tract symptoms present Qualified Code(s): N40.0 - Benign prostatic hyperplasia without lower urinary tract symptoms Is this a current diagnosis for this admission?: Yes (12) Atherosclerotic vascular disease Is this a current diagnosis for this admission?: Yes (13) Hypotension Qualifiers: Hypotension type: unspecified hypotension type Qualified Code(s): I95.9 - Hypotension, unspecified Is this a current diagnosis for this admission?: Yes (14) Hypoxia Is this a current diagnosis for this admission?: Yes - Time Time Spent with patient: 25-34 minutes - Plan Summary Plan Summary: Continue current antibiotics. Patient has 2 L positive balance for the past 2 days. We will continue to monitor for congestion. Continue current antibiotics. Potassium noted to be high, we will decrease potassium level on the TPN as well as magnesium level on the TPN. We will give a dose of Lasix. Continue supportive care.
[2017-01-06] MEDS ORDERED: FUROSEMIDE INJ/PF 40 MG/4 ML SDV IV ONE (10:45)
[2017-01-06] MEDS: ENOXAPARIN SODIUM INJ 40 MG/0.4 ML DISP.SYRIN SUBCUT SCH (10:54)
--- NOTE | 2017-01-06 10:54 | RADIOLOGY REPORT (SQ) ---
EXAM DESCRIPTION: KUB/ABDOMEN (SINGLE VIEW) COMPLETED DATE/TIME: 01/06/2017 10:29 am REASON FOR STUDY: Dobbhoff placement K56.2 VOLVULUS COMPARISON: 12/28/2016 NUMBER OF VIEWS: One view. TECHNIQUE: Supine radiographic image of the abdomen acquired. LIMITATIONS: None. FINDINGS: BOWEL GAS PATTERN: Normal bowel gas pattern. No dilated loops. CALCIFICATIONS: No suspicious calcifications. SOFT TISSUES: No gross mass or suggestion of organomegaly. HARDWARE: A feeding tube is present. It does not appear to be weighted. The tip of the tube is in t he region of gastric antrum or proximal duodenum. BONES: No acute fracture. No worrisome bone lesions. OTHER: No other significant finding. IMPRESSION: Tube placement as described. TECHNICAL DOCUMENTATION: JOB ID: [id number] [employer]- All Rights Reserved
[2017-01-06] MEDS: CEFEPIME 2 GM/D5W RTU 50 ML IV SCH ×2 (10:58→21:09)
--- NOTE | 2017-01-06 13:50 | OPERATIVE REPORT E ---
Operative Report NAME: GUSTAVO HEARN : 1935 AGE: 81Y DATE OF SURGERY: 01/06/2017 ROOM: 612 PREOPERATIVE DIAGNOSIS: Malfunctioning Dobhoff feeding tube through the gastrostomy tube. POSTOPERATIVE DIAGNOSIS: Malfunctioning Dobhoff feeding tube through the gastrostomy tube. PROCEDURE: Repositioning of Dobhoff tube. SURGEON: TEX MCKEON M.D. DESCRIPTION OF PROCEDURE: Dobhoff tube unable to be flushed. The Dobhoff tube was subsequently pulled back slightly and after pulling about 10 cm, it could relatively easily be flushed at this point. An x-ray of the abdomen was done and it appears that the tube is the area of the distal antrum or close to the duodenum. Also, the catheter appears to be coiled in the area of the stomach. In view of the difficulty of repositioning the catheter, will try to feed the patient through the Dobhoff catheter and see if the NG drainage comes back as tube feedings. If it does, then we will just have to put in a new Dobhoff catheter and hopefully put it into the area of the duodenum/jejunum. DICTATING PHYSICIAN: TEX MCKEON M.D. [id number] PHY#: [id number] ID: [id number] JOB#: [id number] ACCT: [id number] cc:TEX MCKEON M.D. >
--- NOTE | 2017-01-06 14:04 | PROGRESS NOTE E ---
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 Yesterday patient had a trach and PEG tube placed. His abdomen remains soft and nontender. Incision is clean and dry. Ileostomy is functioning well. The NG drainage is about 400 mL in the past 24 hours. The Dobhoff catheter was then placed through the PEG tube in the area of the duodenum. Unfortunately this was not working this morning and I had to pull it back up a little bit. X-ray showed the tip of the catheter may be in the antrum or the area of the duodenum. PLAN: The plan is to start feeding him through the Dobhoff catheter through the PEG tube and see if the tube feeds are being aspirated through the NG tube. If it does then might need to put in new Dobhoff catheter, probably a bigger size if the PEG tube can accommodate it, maybe at least a 10 [place]. DICTATING PHYSICIAN: TEX MCKEON M.D. [id number] PHY#: [id number] ID: [id number] JOB#: [id number] ACCT: [id number] cc: >
[2017-01-06] MEDS: DEXTROSE 10%-WATER 1,000 ML IV PRN (16:03)
[2017-01-07] MEDS: ERYTHROMYCIN LACTOBIONATE 250 MG in NORMAL SALINE 100 ML IV SCH ×3 (02:45→17:06)
[2017-01-07] MEDS: DEXTROSE 10%-WATER 1,000 ML IV PRN (03:26)
[2017-01-07] MEDS: METOCLOPRAMIDE HCL INJ/PF 10 MG/2 ML SDV IV SCH ×4 (05:27→23:24)
[2017-01-07] MEDS: DEXTROSE 5%-WATER 250 ML with PHENYLEPHRINE HCL 40 MG IV PRN ×6 (05:38→21:36)
[2017-01-07 05:45] LABS: ARTERIAL BLOOD BASE EXCESS 9.6 mmol/L; ARTERIAL BLOOD O2 SATURATION 98.1 % (94-98)
[2017-01-07 05:45] LABS: HEMATOCRIT 25.9 % (37.9-51.0); HEMOGLOBIN 8.8 g/dL (13.5-17.0); HGB HCT DIFFERENCE 0.5; MEAN CORPUSCULAR HEMOGLOBIN 31.1 pg (27.0-33.4); MEAN CORPUSCULAR HGB CONC 33.8 g/dL (32.0-36.0); MEAN CORPUSCULAR VOLUME 92 fl (80-97); RED BLOOD COUNT 2.81 10^6/uL (4.35-5.55); RED CELL DISTRIBUTION WIDTH 13.3 % (11.5-14.0); WHITE BLOOD COUNT 10.8 10^3/uL (4.0-10.5)
[2017-01-07 06:05] LABS: BLOOD UREA NITROGEN 35 mg/dL (7-20); CALCIUM 8.2 mg/dL (8.4-10.2); CREATININE RESULT 1.26 mg/dL (0.52-1.25); GLUCOSE 127 mg/dL (75-110); MAGNESIUM 2.1 mg/dL (1.6-2.3)
[2017-01-07 06:13] LABS: ANION GAP 7 (5-19); CARBON DIOXIDE 32 mmol/L (22-30); CHLORIDE 98 mmol/L (98-107); POTASSIUM 4.7 mmol/L (3.6-5.0)
[2017-01-07] MEDS: PROPOFOL 100 ML IV PRN ×3 (06:47→22:56)
--- NOTE | 2017-01-07 07:55 | RADIOLOGY REPORT (SQ) ---
EXAM DESCRIPTION: CHEST SINGLE VIEW COMPLETED DATE/TIME: 01/07/2017 6:43 am REASON FOR STUDY: resp failure/sepsis COMPARISON: 01/06/2017 EXAM PARAMETERS: NUMBER OF VIEWS: One view. TECHNIQUE: Single frontal radiographic view of the chest acquired. RADIATION DOSE: NA LIMITATIONS: None. FINDINGS: LUNGS AND PLEURA: Mild interstitial markings. MEDIASTINUM AND HILAR STRUCTURES: No masses. Contour normal. HEART AND VASCULAR STRUCTURES: Heart normal in size. Normal vasculature. BONES: No acute findings. HARDWARE: Tracheostomy, likely adequate partially imaged NG tube, and adequate appearing left subclav marcos central line. OTHER: No other significant finding. IMPRESSION: No significant interval change. TECHNICAL DOCUMENTATION: JOB ID: [id number]
[2017-01-07] MEDS ORDERED: NORMAL SALINE 1000 ML 1,000 ML IV ONE (08:56)
--- NOTE | 2017-01-07 09:03 | PDOC PROGRESS REPORT ---
Subjective Progress Note for:: 01/07/17 Subjective:: on vent Ileostomy started functioning Physical Exam Vital Signs: Temp Pulse Resp BP Pulse Ox 99.5 F 74 16 98/49 L 99 01/07/17 05:58 01/07/17 05:58 01/07/17 06:01 01/07/17 06:00 01/07/17 08:00 Pulse Oximeter Continuous Start: 12/24/16 22: 07 Freq: Status: Complete Document 12/24/16 20:00 [facility] (Rec: 12/24/16 22:09 [facility] [email or web address]) Pulse Oximetry Assessment Oxygen Saturation (92-100) 100 Oxygen Flow Rate (L/min) 12 Oxygen Delivery Method Non-Rebreather Fraction of Inspired Oxygen (FIO2) 100 Equipment Usage Initial Set Up Continuous Pulse Oximeter 24 Hour Charge Charge Now Continuous SpO2 Machine # [id number] Intake & Output 01/06/17 01/07/17 01/08/17 06:59 06:59 06:59 Intake Total 3341 3331 Output Total 1773 2010 Balance 956 -1579 Weight 78.6 kg 77 kg GI/Abdominal exam: PRESENT: other - Ileostomy good out put Enteral tube feeding Pulmonary care Results Laboratory Results: 01/07/17 05:20 01/07/17 05:20 01/06/17 01/07/17 01/07/17 14:30 05:15 05:20 WBC RBC Hgb Hct MCV MCH MCHC RDW Plt Count Carbonic Acid 1.40 H HCO3/H2CO3 Ratio 24:1 ABG pH 7.48 H ABG pCO2 46.5 H ABG pO2 104.8 H ABG HCO3 34.1 H ABG O2 Saturation 98.1 H ABG Base Excess 9.6 FiO2 30% Sodium 137.0 Potassium 5.2 H 4.7 Chloride 98 Carbon Dioxide 32 H Anion Gap 7 BUN 35 H Creatinine 1.26 H Est GFR ( Amer) > 60 Est GFR (Non-Af Amer) 55 L Glucose 127 H Calcium 8.2 L Magnesium 2.1 01/07/17 05:20 WBC 10.8 H RBC 2.81 L Hgb 8.8 L Hct 25.9 L MCV 92 MCH 31.1 MCHC 33.8 RDW 13.3 Plt Count 312 Carbonic Acid HCO3/H2CO3 Ratio ABG pH ABG pCO2 ABG pO2 ABG HCO3 ABG O2 Saturation ABG Base Excess FiO2 Sodium Potassium Chloride Carbon Dioxide Anion Gap BUN Creatinine Est GFR ( Amer) Est GFR (Non-Af Amer) Glucose Calcium Magnesium 01/03/17 08:30 Tracheal Aspirate Gram Stain - Final 01/03/17 08:30 Tracheal Aspirate Sputum Culture - Final Enterobacter Cloacae Normal Elise Absent 12/24/16 12/24/16 12/24/16 16:50 18:10 21:50 Creatine Kinase 29 L 72 CK-MB (CK-2) Troponin I 0.036 12/24/16 12/25/16 12/25/16 21:50 00:35 00:35 Creatine Kinase 66 CK-MB (CK-2) Troponin I 0.038 0.044 12/25/16 12/25/16 21:50 21:50 Creatine Kinase 26 L CK-MB (CK-2) 0.59 Troponin I 0.033 Impressions: Chest/Abdomen CTA 12/24/16 00:00 IMPRESSION: 1. NORMAL CTA OF THE CHEST. NO PULMONARY EMBOLI. 2. MODERATE BILATERAL PLEURAL EFFUSIONS. DENSE CONSOLIDATION IN THE LOWER LOBES DUE TO ATELECTASIS. CANNOT EXCLUDE PNEUMONIA. 3. FINDINGS IN THE UPPER ABDOMEN DESCRIBED. POSTOPERATIVE TINY BUBBLES OF FREE AIR. DISTENDED STOMACH AND VISUALIZED SMALL BOWEL. Chest CT 12/28/16 00:00 IMPRESSION: Small bilateral pleural effusions are again identified. The previously described associated airspace consolidation most consistent with atelectatic changes appears improved. There has been interval development of fairly diffuse patchy ground-glass opacities which are slightly more pronounced in the right lung as compared to the left. These could represent areas of pulmonary edema or developing infiltrates. Other findings as noted above Head CT 01/01/17 00:00 IMPRESSION: CHRONIC CHANGES OF ATROPHY AND MICROVASCULAR ISCHEMIA. NO ACUTE PROCESS. Abdomen/Pelvis CT 01/03/17 14:07 IMPRESSION: 1. SURGICAL CHANGES DESCRIBED WITH SUBTOTAL COLECTOMY AND ILEOSTOMY IN THE RIGHT LOWER QUADRANT. THERE IS NO SIGNIFICANT DISTENTION OF THE STOMACH OR SMALL BOWEL DILATION. CONTRAST FILLS THE ENTIRE SMALL BOWEL TO THE ILEOSTOMY WITH NO EVIDENCE OF BOWEL OBSTRUCTION. 2. MODERATE FREE FLUID IN THE ABDOMEN AND PELVIS. 3. OTHER INCIDENTAL FINDINGS ABOVE. KUB X-Ray 01/06/17 00:00 IMPRESSION: Tube placement as described. Chest X-Ray 01/07/17 06:00 IMPRESSION: No significant interval change.
--- NOTE | 2017-01-07 09:05 | PDOC PROGRESS REPORT ---
Subjective Progress Note for:: 01/07/17 Subjective:: Patient on tracheostomy tube. All Dobbhoff tube. NGT to suction still draining some gastric secretions. No reported temperature spikes. Patient remained on vasopressor. Potassium however is better now. Remains on sedation as well. Has a negative balance urine output today of greater than a liter. Catheter tip was removed and sent for culture growing some gram-positive cocci. Physical Exam Vital Signs: Temp Pulse Resp BP Pulse Ox 99.5 F 74 16 98/49 L 99 01/07/17 05:58 01/07/17 05:58 01/07/17 06:01 01/07/17 06:00 01/07/17 08:00 Pulse Oximeter Continuous Start: 12/24/16 22: 07 Freq: Status: Complete Document 12/24/16 20:00 [facility] (Rec: 12/24/16 22:09 [facility] [email or web address]) Pulse Oximetry Assessment Oxygen Saturation (92-100) 100 Oxygen Flow Rate (L/min) 12 Oxygen Delivery Method Non-Rebreather Fraction of Inspired Oxygen (FIO2) 100 Equipment Usage Initial Set Up Continuous Pulse Oximeter 24 Hour Charge Charge Now Continuous SpO2 Machine # [id number] Intake & Output 01/06/17 01/07/17 01/08/17 06:59 06:59 06:59 Intake Total 3341 3331 Output Total 2385 4910 Balance 956 -1579 Weight 78.6 kg 77 kg General appearance: PRESENT: no acute distress, other - Tracheostomy in place Head exam: PRESENT: normocephalic Eye exam: PRESENT: conjunctiva pale Mouth exam: PRESENT: moist, neck supple Neck exam: ABSENT: JVD Respiratory exam: PRESENT: clear to auscultation annabel - Bilateral. ABSENT: wheezes Cardiovascular exam: PRESENT: RRR. ABSENT: gallop GI/Abdominal exam: PRESENT: hypoactive bowel sounds, soft Extremities exam: ABSENT: pedal edema Psychiatric exam: ABSENT: agitated Focused psych exam: ABSENT: restlessness Skin exam: PRESENT: dry, warm. ABSENT: cyanosis Results Laboratory Results: 01/07/17 05:20 01/07/17 05:20 01/06/17 01/07/17 01/07/17 14:30 05:15 05:20 WBC RBC Hgb Hct MCV MCH MCHC RDW Plt Count Carbonic Acid 1.40 H HCO3/H2CO3 Ratio 24:1 ABG pH 7.48 H ABG pCO2 46.5 H ABG pO2 104.8 H ABG HCO3 34.1 H ABG O2 Saturation 98.1 H ABG Base Excess 9.6 FiO2 30% Sodium 137.0 Potassium 5.2 H 4.7 Chloride 98 Carbon Dioxide 32 H Anion Gap 7 BUN 35 H Creatinine 1.26 H Est GFR ( Amer) > 60 Est GFR (Non-Af Amer) 55 L Glucose 127 H Calcium 8.2 L Magnesium 2.1 01/07/17 05:20 WBC 10.8 H RBC 2.81 L Hgb 8.8 L Hct 25.9 L MCV 92 MCH 31.1 MCHC 33.8 RDW 13.3 Plt Count 312 Carbonic Acid HCO3/H2CO3 Ratio ABG pH ABG pCO2 ABG pO2 ABG HCO3 ABG O2 Saturation ABG Base Excess FiO2 Sodium Potassium Chloride Carbon Dioxide Anion Gap BUN Creatinine Est GFR ( Amer) Est GFR (Non-Af Amer) Glucose Calcium Magnesium 01/03/17 08:30 Tracheal Aspirate Gram Stain - Final 01/03/17 08:30 Tracheal Aspirate Sputum Culture - Final Enterobacter Cloacae Normal Elise Absent 12/24/16 12/24/16 12/24/16 16:50 18:10 21:50 Creatine Kinase 29 L 72 CK-MB (CK-2) Troponin I 0.036 12/24/16 12/25/16 12/25/16 21:50 00:35 00:35 Creatine Kinase 66 CK-MB (CK-2) Troponin I 0.038 0.044 12/25/16 12/25/16 21:50 21:50 Creatine Kinase 26 L CK-MB (CK-2) 0.59 Troponin I 0.033 Impressions: Chest/Abdomen CTA 12/24/16 00:00 IMPRESSION: 1. NORMAL CTA OF THE CHEST. NO PULMONARY EMBOLI. 2. MODERATE BILATERAL PLEURAL EFFUSIONS. DENSE CONSOLIDATION IN THE LOWER LOBES DUE TO ATELECTASIS. CANNOT EXCLUDE PNEUMONIA. 3. FINDINGS IN THE UPPER ABDOMEN DESCRIBED. POSTOPERATIVE TINY BUBBLES OF FREE AIR. DISTENDED STOMACH AND VISUALIZED SMALL BOWEL. Chest CT 12/28/16 00:00 IMPRESSION: Small bilateral pleural effusions are again identified. The previously described associated airspace consolidation most consistent with atelectatic changes appears improved. There has been interval development of fairly diffuse patchy ground-glass opacities which are slightly more pronounced in the right lung as compared to the left. These could represent areas of pulmonary edema or developing infiltrates. Other findings as noted above Head CT 01/01/17 00:00 IMPRESSION: CHRONIC CHANGES OF ATROPHY AND MICROVASCULAR ISCHEMIA. NO ACUTE PROCESS. Abdomen/Pelvis CT 01/03/17 14:07 IMPRESSION: 1. SURGICAL CHANGES DESCRIBED WITH SUBTOTAL COLECTOMY AND ILEOSTOMY IN THE RIGHT LOWER QUADRANT. THERE IS NO SIGNIFICANT DISTENTION OF THE STOMACH OR SMALL BOWEL DILATION. CONTRAST FILLS THE ENTIRE SMALL BOWEL TO THE ILEOSTOMY WITH NO EVIDENCE OF BOWEL OBSTRUCTION. 2. MODERATE FREE FLUID IN THE ABDOMEN AND PELVIS. 3. OTHER INCIDENTAL FINDINGS ABOVE. KUB X-Ray 01/06/17 00:00 IMPRESSION: Tube placement as described. Chest X-Ray 01/07/17 06:00 IMPRESSION: No significant interval change. Assessment & Plan - Diagnosis (1) Acute hypoxemic respiratory failure Is this a current diagnosis for this admission?: Yes (2) Aspiration pneumonia Qualifiers: Aspiration pneumonia type: unspecified Laterality: bilateral Lung location: lower lobe of lung Qualified Code(s): J69.0 - Pneumonitis due to inhalation of food and vomit Is this a current diagnosis for this admission?: Yes (3) Adynamic ileus Is this a current diagnosis for this admission?: Yes (4) Toxic megacolon Is this a current diagnosis for this admission?: Yes (5) Sigmoid volvulus Is this a current diagnosis for this admission?: Yes (6) Acute renal failure Qualifiers: Acute renal failure type: unspecified Qualified Code(s): N17.9 - Acute kidney failure, unspecified Is this a current diagnosis for this admission?: Yes (7) Chronic kidney disease, stage II (mild) Is this a current diagnosis for this admission?: Yes (8) Nodule of spleen Is this a current diagnosis for this admission?: Yes (9) Essential hypertension Is this a current diagnosis for this admission?: Yes (10) Hyperlipidemia, acquired Is this a current diagnosis for this admission?: Yes (11) BPH (benign prostatic hyperplasia) Qualifiers: Lower urinary tract symptom presence: unspecified whether lower urinary tract symptoms present Qualified Code(s): N40.0 - Benign prostatic hyperplasia without lower urinary tract symptoms Is this a current diagnosis for this admission?: Yes (12) Atherosclerotic vascular disease Is this a current diagnosis for this admission?: Yes (13) Hypotension Qualifiers: Hypotension type: unspecified hypotension type Qualified Code(s): I95.9 - Hypotension, unspecified Is this a current diagnosis for this admission?: Yes (14) Hypoxia Is this a current diagnosis for this admission?: Yes - Time Time Spent with patient: 25-34 minutes - Plan Summary Plan Summary: We will give 1 L of normal saline bolus. We will resume TPN at a lower potassium and magnesium dose. Continue to monitor electrolytes. Add vancomycin and follow cultures. Continue other medication and supportive care. Consult power shovel operator for long-term acute care facility placement.
[2017-01-07] MEDS: CEFEPIME 2 GM/D5W RTU 50 ML IV SCH ×2 (09:47→21:00)
[2017-01-07] MEDS: ENOXAPARIN SODIUM INJ 40 MG/0.4 ML DISP.SYRIN SUBCUT SCH (09:48)
[2017-01-07] MEDS ORDERED: VANCOMYCIN HCL INJ 1000 MG VIAL IV SCH (10:00)
[2017-01-07] MEDS: AMINO ACIDS 5%/D25W 1,000 ML IV PRN ×2 (10:55→22:16)
[2017-01-07] MEDS: MORPHINE SULFATE 10 MG/ML INJ IV PRN (10:55)
[2017-01-07] MEDS ORDERED: VANCOMYCIN HCL 1,500 MG in DEXTROSE 5%-WATER 250 ML IV SCH (12:00)
[2017-01-07] MEDS: INSULIN REG, HUMAN 100 UNIT/ML 3 ML VIAL (PYX) SUBCUT PRN ×2 (12:35→23:48)
[2017-01-07] MEDS ORDERED: PHENYLEPHRINE HCL INJ/PF 10 MG/1 ML SDV ONE (14:35)
[2017-01-07] MEDS ORDERED: NORMAL SALINE 1000 ML 1,000 ML IV PRN (17:20)
[2017-01-07] MEDS ORDERED: FUROSEMIDE INJ/PF 20 MG/2 ML SDV IV ONE (18:15)
[2017-01-07] MEDS ORDERED: PANTOPRAZOLE SODIUM 40 MG VIAL IV SCH (22:00)
[2017-01-08] MEDS: ERYTHROMYCIN LACTOBIONATE 250 MG in NORMAL SALINE 100 ML IV SCH (01:38)
[2017-01-08] MEDS: DEXTROSE 5%-WATER 250 ML with PHENYLEPHRINE HCL 40 MG IV PRN ×4 (05:11→13:20)
[2017-01-08] MEDS: METOCLOPRAMIDE HCL INJ/PF 10 MG/2 ML SDV IV SCH ×3 (05:11→17:25)
[2017-01-08 05:16] LABS: HEMATOCRIT 24.7 % (37.9-51.0); HEMOGLOBIN 8.4 g/dL (13.5-17.0); HGB HCT DIFFERENCE 0.5; MEAN CORPUSCULAR HEMOGLOBIN 31.4 pg (27.0-33.4); MEAN CORPUSCULAR HGB CONC 33.8 g/dL (32.0-36.0); MEAN CORPUSCULAR VOLUME 93 fl (80-97); RED BLOOD COUNT 2.66 10^6/uL (4.35-5.55); RED CELL DISTRIBUTION WIDTH 13.2 % (11.5-14.0); WHITE BLOOD COUNT 8.7 10^3/uL (4.0-10.5)
[2017-01-08 05:17] LABS: ARTERIAL BLOOD BASE EXCESS 5.7 mmol/L; ARTERIAL BLOOD O2 SATURATION 98.2 % (94-98)
[2017-01-08 05:35] LABS: ANION GAP 6 (5-19); BLOOD UREA NITROGEN 39 mg/dL (7-20); CALCIUM 8.4 mg/dL (8.4-10.2); CARBON DIOXIDE 29 mmol/L (22-30); CHLORIDE 101 mmol/L (98-107); CREATININE RESULT 1.34 mg/dL (0.52-1.25); GLUCOSE 191 mg/dL (75-110); MAGNESIUM 2.2 mg/dL (1.6-2.3); PHOSPHORUS 3.5 mg/dL (2.5-4.5); POTASSIUM 4.3 mmol/L (3.6-5.0); SODIUM 135.9 mmol/L (137-145)
[2017-01-08] MEDS: PROPOFOL 100 ML IV PRN (06:02)
[2017-01-08] MEDS: INSULIN REG, HUMAN 100 UNIT/ML 3 ML VIAL (PYX) SUBCUT PRN ×2 (06:38→12:45)
--- NOTE | 2017-01-08 07:22 | RADIOLOGY REPORT (SQ) ---
EXAM DESCRIPTION: CHEST SINGLE VIEW COMPLETED DATE/TIME: 01/08/2017 7:01 am REASON FOR STUDY: vented pt COMPARISON: 01/07/2017. EXAM PARAMETERS: NUMBER OF VIEWS: One view. TECHNIQUE: Single frontal radiographic view of the chest acquired. RADIATION DOSE: NA LIMITATIONS: None. FINDINGS: LUNGS AND PLEURA: Prominent interstitium. MEDIASTINUM AND HILAR STRUCTURES: No masses. Contour normal. HEART AND VASCULAR STRUCTURES: Heart normal in size. Atherosclerosis. BONES: No acute findings. HARDWARE: Tracheostomy tube. Left subclavian central line tip at the cavoatrial junction. Likely ad equate enteric tube partially obscured distally. Catheter material overlies the left upper abdominal quadrant. OTHER: No other significant finding. IMPRESSION: No significant interval change. No acute cardiopulmonary findings. Lines and tubes. TECHNICAL DOCUMENTATION: JOB ID: [id number]
[2017-01-08] MEDS: ENOXAPARIN SODIUM INJ 40 MG/0.4 ML DISP.SYRIN SUBCUT SCH (07:29)
--- NOTE | 2017-01-08 08:49 | PDOC PROGRESS REPORT ---
Subjective Progress Note for:: 01/08/17 Subjective:: No reported congestion on CXR. Remained on vasopressor. No reported temperature spikes. Seems tolerating tube feeding. No TF aspirated on the NGT. Culture grew staph epidermidis on the catheter tip. Physical Exam Vital Signs: Temp Pulse Resp BP Pulse Ox 99.1 F 71 15 114/45 L 99 01/08/17 06:00 01/08/17 06:00 01/08/17 06:16 01/08/17 06:16 01/08/17 06:16 Pulse Oximeter Continuous Start: 12/24/16 22: 07 Freq: Status: Complete Document 12/24/16 20:00 [facility] (Rec: 12/24/16 22:09 [facility] [email or web address]) Pulse Oximetry Assessment Oxygen Saturation (92-100) 100 Oxygen Flow Rate (L/min) 12 Oxygen Delivery Method Non-Rebreather Fraction of Inspired Oxygen (FIO2) 100 Equipment Usage Initial Set Up Continuous Pulse Oximeter 24 Hour Charge Charge Now Continuous SpO2 Machine # [id number] Intake & Output 01/07/17 01/08/17 01/09/17 06:59 06:59 06:59 Intake Total 3331 5233 Output Total 4910 5527 Balance -5911 -614 Weight 77 kg 77 kg General appearance: PRESENT: no acute distress, other - on tracheostomy Head exam: PRESENT: normocephalic Eye exam: PRESENT: conjunctiva pale Mouth exam: PRESENT: moist, neck supple Neck exam: ABSENT: JVD Respiratory exam: PRESENT: rhonchi - few B/L. ABSENT: wheezes Cardiovascular exam: PRESENT: RRR. ABSENT: gallop GI/Abdominal exam: PRESENT: hypoactive bowel sounds. ABSENT: distended Extremities exam: ABSENT: pedal edema Neurological exam: PRESENT: altered - sedated Psychiatric exam: ABSENT: agitated Focused psych exam: ABSENT: restlessness Skin exam: PRESENT: dry, warm. ABSENT: cyanosis Results Laboratory Results: 01/08/17 05:05 01/08/17 05:05 01/08/17 01/08/17 01/08/17 05:00 05:05 05:05 WBC 8.7 RBC 2.66 L Hgb 8.4 L Hct 24.7 L MCV 93 MCH 31.4 MCHC 33.8 RDW 13.2 Plt Count 262 Carbonic Acid 1.45 H HCO3/H2CO3 Ratio 21:1 ABG pH 7.42 ABG pCO2 48.3 H ABG pO2 113.4 H ABG HCO3 30.8 H ABG O2 Saturation 98.2 H ABG Base Excess 5.7 FiO2 30% Sodium 135.9 L Potassium 4.3 Chloride 101 Carbon Dioxide 29 Anion Gap 6 BUN 39 H Creatinine 1.34 H Est GFR ( Amer) > 60 Est GFR (Non-Af Amer) 51 L Glucose 191 H Lactic Acid Calcium 8.4 Phosphorus 3.5 Magnesium 2.2 01/08/17 05:05 WBC RBC Hgb Hct MCV MCH MCHC RDW Plt Count Carbonic Acid HCO3/H2CO3 Ratio ABG pH ABG pCO2 ABG pO2 ABG HCO3 ABG O2 Saturation ABG Base Excess FiO2 Sodium Potassium Chloride Carbon Dioxide Anion Gap BUN Creatinine Est GFR ( Amer) Est GFR (Non-Af Amer) Glucose Lactic Acid 0.7 Calcium Phosphorus Magnesium 01/03/17 08:30 Blood Blood Culture - Final NO GROWTH IN 5 DAYS 01/04/17 15:31 Catheter Tip - Central Line Catheter Tip Culture - Final Staphylococcus Epidermidis 12/24/16 12/24/16 12/24/16 16:50 18:10 21:50 Creatine Kinase 29 L 72 CK-MB (CK-2) Troponin I 0.036 12/24/16 12/25/16 12/25/16 21:50 00:35 00:35 Creatine Kinase 66 CK-MB (CK-2) Troponin I 0.038 0.044 12/25/16 12/25/16 21:50 21:50 Creatine Kinase 26 L CK-MB (CK-2) 0.59 Troponin I 0.033 Impressions: Chest/Abdomen CTA 12/24/16 00:00 IMPRESSION: 1. NORMAL CTA OF THE CHEST. NO PULMONARY EMBOLI. 2. MODERATE BILATERAL PLEURAL EFFUSIONS. DENSE CONSOLIDATION IN THE LOWER LOBES DUE TO ATELECTASIS. CANNOT EXCLUDE PNEUMONIA. 3. FINDINGS IN THE UPPER ABDOMEN DESCRIBED. POSTOPERATIVE TINY BUBBLES OF FREE AIR. DISTENDED STOMACH AND VISUALIZED SMALL BOWEL. Chest CT 12/28/16 00:00 IMPRESSION: Small bilateral pleural effusions are again identified. The previously described associated airspace consolidation most consistent with atelectatic changes appears improved. There has been interval development of fairly diffuse patchy ground-glass opacities which are slightly more pronounced in the right lung as compared to the left. These could represent areas of pulmonary edema or developing infiltrates. Other findings as noted above Head CT 01/01/17 00:00 IMPRESSION: CHRONIC CHANGES OF ATROPHY AND MICROVASCULAR ISCHEMIA. NO ACUTE PROCESS. Abdomen/Pelvis CT 01/03/17 14:07 IMPRESSION: 1. SURGICAL CHANGES DESCRIBED WITH SUBTOTAL COLECTOMY AND ILEOSTOMY IN THE RIGHT LOWER QUADRANT. THERE IS NO SIGNIFICANT DISTENTION OF THE STOMACH OR SMALL BOWEL DILATION. CONTRAST FILLS THE ENTIRE SMALL BOWEL TO THE ILEOSTOMY WITH NO EVIDENCE OF BOWEL OBSTRUCTION. 2. MODERATE FREE FLUID IN THE ABDOMEN AND PELVIS. 3. OTHER INCIDENTAL FINDINGS ABOVE. KUB X-Ray 01/06/17 00:00 IMPRESSION: Tube placement as described. Chest X-Ray 01/08/17 06:00 IMPRESSION: No significant interval change. No acute cardiopulmonary findings. Lines and tubes. Assessment & Plan - Diagnosis (1) Acute hypoxemic respiratory failure Is this a current diagnosis for this admission?: Yes (2) Aspiration pneumonia Qualifiers: Aspiration pneumonia type: unspecified Laterality: bilateral Lung location: lower lobe of lung Qualified Code(s): J69.0 - Pneumonitis due to inhalation of food and vomit Is this a current diagnosis for this admission?: Yes (3) Adynamic ileus Is this a current diagnosis for this admission?: Yes (4) Toxic megacolon Is this a current diagnosis for this admission?: Yes (5) Sigmoid volvulus Is this a current diagnosis for this admission?: Yes (6) Acute renal failure Qualifiers: Acute renal failure type: unspecified Qualified Code(s): N17.9 - Acute kidney failure, unspecified Is this a current diagnosis for this admission?: Yes (7) Chronic kidney disease, stage II (mild) Is this a current diagnosis for this admission?: Yes (8) Nodule of spleen Is this a current diagnosis for this admission?: Yes (9) Essential hypertension Is this a current diagnosis for this admission?: Yes (10) Hyperlipidemia, acquired Is this a current diagnosis for this admission?: Yes (11) BPH (benign prostatic hyperplasia) Qualifiers: Lower urinary tract symptom presence: unspecified whether lower urinary tract symptoms present Qualified Code(s): N40.0 - Benign prostatic hyperplasia without lower urinary tract symptoms Is this a current diagnosis for this admission?: Yes (12) Atherosclerotic vascular disease Is this a current diagnosis for this admission?: Yes (13) Hypotension Qualifiers: Hypotension type: unspecified hypotension type Qualified Code(s): I95.9 - Hypotension, unspecified Is this a current diagnosis for this admission?: Yes (14) Hypoxia Is this a current diagnosis for this admission?: Yes - Time Time Spent with patient: 25-34 minutes - Plan Summary Plan Summary: Continue antibx. cefepime. D/C vancomycin. Hold erythromycin and monitor gastric secretions. Monitor electrolytes. Continue TF and TPN for now. Cont. supportive care.
[2017-01-08] MEDS: AMINO ACIDS 5%/D25W 1,000 ML IV PRN ×2 (09:27→20:30)
[2017-01-08] MEDS: CEFEPIME 2 GM/D5W RTU 50 ML IV SCH ×2 (09:59→21:48)
--- NOTE | 2017-01-08 13:51 | PDOC PROGRESS REPORT ---
Subjective Progress Note for:: 01/08/17 Subjective:: on sit up position appears comfortable Physical Exam Vital Signs: Temp Pulse Resp BP Pulse Ox 99.1 F 65 15 117/50 L 100 01/08/17 06:00 01/08/17 10:00 01/08/17 12:31 01/08/17 12:31 01/08/17 12:31 Pulse Oximeter Continuous Start: 12/24/16 22: 07 Freq: Status: Complete Document 12/24/16 20:00 [facility] (Rec: 12/24/16 22:09 [facility] [email or web address]) Pulse Oximetry Assessment Oxygen Saturation (92-100) 100 Oxygen Flow Rate (L/min) 12 Oxygen Delivery Method Non-Rebreather Fraction of Inspired Oxygen (FIO2) 100 Equipment Usage Initial Set Up Continuous Pulse Oximeter 24 Hour Charge Charge Now Continuous SpO2 Machine # [id number] Intake & Output 01/07/17 01/08/17 01/09/17 06:59 06:59 06:59 Intake Total 3331 5233 Output Total 4910 5527 875 Balance -1579 -294 -875 Weight 77 kg 77 kg GI/Abdominal exam: PRESENT: other - soft abdomen Ileostomy functioning well Results Laboratory Results: 01/08/17 05:05 01/08/17 05:05 01/08/17 01/08/17 01/08/17 05:00 05:05 05:05 WBC 8.7 RBC 2.66 L Hgb 8.4 L Hct 24.7 L MCV 93 MCH 31.4 MCHC 33.8 RDW 13.2 Plt Count 262 Carbonic Acid 1.45 H HCO3/H2CO3 Ratio 21:1 ABG pH 7.42 ABG pCO2 48.3 H ABG pO2 113.4 H ABG HCO3 30.8 H ABG O2 Saturation 98.2 H ABG Base Excess 5.7 FiO2 30% Sodium 135.9 L Potassium 4.3 Chloride 101 Carbon Dioxide 29 Anion Gap 6 BUN 39 H Creatinine 1.34 H Est GFR ( Amer) > 60 Est GFR (Non-Af Amer) 51 L Glucose 191 H Lactic Acid Calcium 8.4 Phosphorus 3.5 Magnesium 2.2 01/08/17 05:05 WBC RBC Hgb Hct MCV MCH MCHC RDW Plt Count Carbonic Acid HCO3/H2CO3 Ratio ABG pH ABG pCO2 ABG pO2 ABG HCO3 ABG O2 Saturation ABG Base Excess FiO2 Sodium Potassium Chloride Carbon Dioxide Anion Gap BUN Creatinine Est GFR ( Amer) Est GFR (Non-Af Amer) Glucose Lactic Acid 0.7 Calcium Phosphorus Magnesium 01/03/17 09:51 Blood Blood Culture - Final NO GROWTH IN 5 DAYS 01/03/17 08:30 Blood Blood Culture - Final NO GROWTH IN 5 DAYS 01/04/17 15:31 Catheter Tip - Central Line Catheter Tip Culture - Final Staphylococcus Epidermidis 12/24/16 12/24/16 12/24/16 16:50 18:10 21:50 Creatine Kinase 29 L 72 CK-MB (CK-2) Troponin I 0.036 12/24/16 12/25/16 12/25/16 21:50 00:35 00:35 Creatine Kinase 66 CK-MB (CK-2) Troponin I 0.038 0.044 12/25/16 12/25/16 21:50 21:50 Creatine Kinase 26 L CK-MB (CK-2) 0.59 Troponin I 0.033 Impressions: Chest/Abdomen CTA 12/24/16 00:00 IMPRESSION: 1. NORMAL CTA OF THE CHEST. NO PULMONARY EMBOLI. 2. MODERATE BILATERAL PLEURAL EFFUSIONS. DENSE CONSOLIDATION IN THE LOWER LOBES DUE TO ATELECTASIS. CANNOT EXCLUDE PNEUMONIA. 3. FINDINGS IN THE UPPER ABDOMEN DESCRIBED. POSTOPERATIVE TINY BUBBLES OF FREE AIR. DISTENDED STOMACH AND VISUALIZED SMALL BOWEL. Chest CT 12/28/16 00:00 IMPRESSION: Small bilateral pleural effusions are again identified. The previously described associated airspace consolidation most consistent with atelectatic changes appears improved. There has been interval development of fairly diffuse patchy ground-glass opacities which are slightly more pronounced in the right lung as compared to the left. These could represent areas of pulmonary edema or developing infiltrates. Other findings as noted above Head CT 01/01/17 00:00 IMPRESSION: CHRONIC CHANGES OF ATROPHY AND MICROVASCULAR ISCHEMIA. NO ACUTE PROCESS. Abdomen/Pelvis CT 01/03/17 14:07 IMPRESSION: 1. SURGICAL CHANGES DESCRIBED WITH SUBTOTAL COLECTOMY AND ILEOSTOMY IN THE RIGHT LOWER QUADRANT. THERE IS NO SIGNIFICANT DISTENTION OF THE STOMACH OR SMALL BOWEL DILATION. CONTRAST FILLS THE ENTIRE SMALL BOWEL TO THE ILEOSTOMY WITH NO EVIDENCE OF BOWEL OBSTRUCTION. 2. MODERATE FREE FLUID IN THE ABDOMEN AND PELVIS. 3. OTHER INCIDENTAL FINDINGS ABOVE. KUB X-Ray 01/06/17 00:00 IMPRESSION: Tube placement as described. Chest X-Ray 01/08/17 06:00 IMPRESSION: No significant interval change. No acute cardiopulmonary findings. Lines and tubes. Assessment & Plan - Plan Summary Plan Summary: Trach colloar Enteral feeds physical therapy
--- NOTE | 2017-01-08 23:56 | OPERATIVE REPORT E ---
Operative Report NAME: GUSTAVO HEARN : 1935 AGE: 81Y DATE OF SURGERY: 01/05/2017 ROOM: 612 [facility]AL[facility] , in the absence of a surgeon to assist, provided assistance by inserting the percutaneous needle and wire through the anterior abdominal wall and then into the stomach lumen so that it could be retrieved by Dr. Gregory during the upper endoscopy. This could not be performed by the single surgeon. DICTATING PHYSICIAN: JUAN A GREGORY M.D. [id number] PHY#: [id number] ID: [id number] JOB#: [id number] ACCT: [id number] cc:JUAN A GREGORY M.D. >
[2017-01-09] MEDS: METOCLOPRAMIDE HCL INJ/PF 10 MG/2 ML SDV IV SCH ×5 (00:25→23:37)
[2017-01-09] MEDS: INSULIN REG, HUMAN 100 UNIT/ML 3 ML VIAL (PYX) SUBCUT PRN (00:25)
[2017-01-09 05:08] LABS: ARTERIAL BLOOD O2 SATURATION 98.6 % (94-98)
[2017-01-09 05:15] LABS: HEMATOCRIT 23.2 % (37.9-51.0); HEMOGLOBIN 8.1 g/dL (13.5-17.0); HGB HCT DIFFERENCE 1.1; MEAN CORPUSCULAR HEMOGLOBIN 32.3 pg (27.0-33.4); MEAN CORPUSCULAR HGB CONC 34.9 g/dL (32.0-36.0); MEAN CORPUSCULAR VOLUME 93 fl (80-97); RED BLOOD COUNT 2.51 10^6/uL (4.35-5.55); RED CELL DISTRIBUTION WIDTH 13.4 % (11.5-14.0); WHITE BLOOD COUNT 7.1 10^3/uL (4.0-10.5)
[2017-01-09 05:23] LABS: ALANINE AMINOTRANSFERASE 45 U/L (21-72); ALBUMIN 2.1 g/dL (3.5-5.0); ALKALINE PHOSPHATASE 117 U/L (38-126); ANION GAP 5 (5-19); ASPARTATE AMINO TRANSFERASE 25 U/L (17-59); BILIRUBIN,DIRECT 0.3 mg/dL (0.0-0.4); BILIRUBIN,TOTAL 0.3 mg/dL (0.2-1.3); BLOOD UREA NITROGEN 40 mg/dL (7-20); CALCIUM 8.6 mg/dL (8.4-10.2); CARBON DIOXIDE 32 mmol/L (22-30); CHLORIDE 103 mmol/L (98-107); CREATININE RESULT 1.33 mg/dL (0.52-1.25); GLUCOSE 181 mg/dL (75-110); MAGNESIUM 2.2 mg/dL (1.6-2.3); PHOSPHORUS 2.8 mg/dL (2.5-4.5); POTASSIUM 4.2 mmol/L (3.6-5.0); SODIUM 140.3 mmol/L (137-145)
[2017-01-09 05:30] LABS: PREALBUMIN 16.9 mg/dL (17.6-36.0)
[2017-01-09] MEDS: AMINO ACIDS 5%/D25W 1,000 ML IV PRN ×2 (07:46→19:51)
[2017-01-09] MEDS: ENOXAPARIN SODIUM INJ 40 MG/0.4 ML DISP.SYRIN SUBCUT SCH (07:47)
--- NOTE | 2017-01-09 08:01 | RADIOLOGY REPORT (SQ) ---
EXAM DESCRIPTION: CHEST SINGLE VIEW COMPLETED DATE/TIME: 01/09/2017 6:57 am REASON FOR STUDY: respiratory failure COMPARISON: 01/08/2017. EXAM PARAMETERS: NUMBER OF VIEWS: One view. TECHNIQUE: Single frontal radiographic view of the chest acquired. RADIATION DOSE: NA LIMITATIONS: None. FINDINGS: LUNGS AND PLEURA: No opacities, masses or pneumothorax. No pleural effusion. MEDIASTINUM AND HILAR STRUCTURES: No masses. Contour normal. HEART AND VASCULAR STRUCTURES: Normal cardiac silhouette. Atherosclerosis. BONES: No acute findings. HARDWARE: Tracheostomy tube. Adequate appearing left subclavian central line. Likely adequate NG tu be obscured distally. OTHER: No other significant finding. IMPRESSION: No acute cardiopulmonary findings. Lines and tubes. Stable. TECHNICAL DOCUMENTATION: JOB ID: [id number]
[2017-01-09] MEDS ORDERED: ERYTHROMYCIN INJ 500 MG VIAL IV SCH (09:30)
--- NOTE | 2017-01-09 09:38 | PDOC PROGRESS REPORT ---
Subjective Progress Note for:: 01/09/17 Subjective:: Patient is off vasopressor now. He is tube feedings noted to be present on the gastric secretions suctioned on the wall. There is no reported temperature spikes, respiratory distress, increasing output from the osteotomy bag, nor any discomfort at this time. Patient was on erythromycin IV for likely gastroparesis as he has been on Reglan but seems to be not helping to gastroparesis alone. Physical Exam Vital Signs: Temp Pulse Resp BP Pulse Ox 98.6 F 76 15 116/39 L 100 01/09/17 08:00 01/09/17 08:00 01/09/17 08:00 01/09/17 08:00 01/09/17 08:00 Pulse Oximeter Continuous Start: 12/24/16 22: 07 Freq: Status: Complete Document 12/24/16 20:00 [facility] (Rec: 12/24/16 22:09 [facility] [email or web address]) Pulse Oximetry Assessment Oxygen Saturation (92-100) 100 Oxygen Flow Rate (L/min) 12 Oxygen Delivery Method Non-Rebreather Fraction of Inspired Oxygen (FIO2) 100 Equipment Usage Initial Set Up Continuous Pulse Oximeter 24 Hour Charge Charge Now Continuous SpO2 Machine # [id number] Intake & Output 01/08/17 01/09/17 01/10/17 06:59 06:59 06:59 Intake Total 5233 3384 Output Total 5527 4085 105 Balance -294 -701 -105 Weight 77 kg 76.8 kg General appearance: PRESENT: no acute distress, thin Head exam: PRESENT: normocephalic Eye exam: PRESENT: EOMI Mouth exam: PRESENT: moist, neck supple Neck exam: ABSENT: JVD Respiratory exam: PRESENT: rhonchi - few, unlabored, other - Tracheostomy in place. ABSENT: wheezes Cardiovascular exam: PRESENT: RRR, systolic murmur - Left sternal border. ABSENT: gallop GI/Abdominal exam: PRESENT: hypoactive bowel sounds, soft. ABSENT: distended Extremities exam: ABSENT: pedal edema Neurological exam: PRESENT: alert, awake Skin exam: PRESENT: dry, warm. ABSENT: cyanosis Results Laboratory Results: 01/09/17 04:50 01/09/17 04:50 01/09/17 01/09/17 01/09/17 04:45 04:50 04:50 WBC 7.1 RBC 2.51 L Hgb 8.1 L Hct 23.2 L MCV 93 MCH 32.3 MCHC 34.9 RDW 13.4 Plt Count 222 Carbonic Acid 1.27 HCO3/H2CO3 Ratio 23:1 ABG pH 7.46 H ABG pCO2 42.1 ABG pO2 123.3 H ABG HCO3 29.3 H ABG O2 Saturation 98.6 H ABG Base Excess 5.0 FiO2 30% Sodium 140.3 Potassium 4.2 Chloride 103 Carbon Dioxide 32 H Anion Gap 5 BUN 40 H Creatinine 1.33 H Est GFR ( Amer) > 60 Est GFR (Non-Af Amer) 52 L Glucose 181 H Calcium 8.6 Phosphorus 2.8 Magnesium 2.2 Total Bilirubin 0.3 AST 25 ALT 45 Alkaline Phosphatase 117 Total Protein 5.0 L Albumin 2.1 L Prealbumin 16.9 L 01/03/17 09:51 Blood Blood Culture - Final NO GROWTH IN 5 DAYS 01/03/17 08:30 Blood Blood Culture - Final NO GROWTH IN 5 DAYS 12/24/16 12/24/16 12/24/16 16:50 18:10 21:50 Creatine Kinase 29 L 72 CK-MB (CK-2) Troponin I 0.036 12/24/16 12/25/16 12/25/16 21:50 00:35 00:35 Creatine Kinase 66 CK-MB (CK-2) Troponin I 0.038 0.044 12/25/16 12/25/16 21:50 21:50 Creatine Kinase 26 L CK-MB (CK-2) 0.59 Troponin I 0.033 Impressions: Chest/Abdomen CTA 12/24/16 00:00 IMPRESSION: 1. NORMAL CTA OF THE CHEST. NO PULMONARY EMBOLI. 2. MODERATE BILATERAL PLEURAL EFFUSIONS. DENSE CONSOLIDATION IN THE LOWER LOBES DUE TO ATELECTASIS. CANNOT EXCLUDE PNEUMONIA. 3. FINDINGS IN THE UPPER ABDOMEN DESCRIBED. POSTOPERATIVE TINY BUBBLES OF FREE AIR. DISTENDED STOMACH AND VISUALIZED SMALL BOWEL. Chest CT 12/28/16 00:00 IMPRESSION: Small bilateral pleural effusions are again identified. The previously described associated airspace consolidation most consistent with atelectatic changes appears improved. There has been interval development of fairly diffuse patchy ground-glass opacities which are slightly more pronounced in the right lung as compared to the left. These could represent areas of pulmonary edema or developing infiltrates. Other findings as noted above Head CT 01/01/17 00:00 IMPRESSION: CHRONIC CHANGES OF ATROPHY AND MICROVASCULAR ISCHEMIA. NO ACUTE PROCESS. Abdomen/Pelvis CT 01/03/17 14:07 IMPRESSION: 1. SURGICAL CHANGES DESCRIBED WITH SUBTOTAL COLECTOMY AND ILEOSTOMY IN THE RIGHT LOWER QUADRANT. THERE IS NO SIGNIFICANT DISTENTION OF THE STOMACH OR SMALL BOWEL DILATION. CONTRAST FILLS THE ENTIRE SMALL BOWEL TO THE ILEOSTOMY WITH NO EVIDENCE OF BOWEL OBSTRUCTION. 2. MODERATE FREE FLUID IN THE ABDOMEN AND PELVIS. 3. OTHER INCIDENTAL FINDINGS ABOVE. KUB X-Ray 01/06/17 00:00 IMPRESSION: Tube placement as described. Chest X-Ray 01/09/17 06:00 IMPRESSION: No acute cardiopulmonary findings. Lines and tubes. Stable. Assessment & Plan - Diagnosis (1) Acute hypoxemic respiratory failure Is this a current diagnosis for this admission?: Yes (2) Aspiration pneumonia Qualifiers: Aspiration pneumonia type: unspecified Laterality: bilateral Lung location: lower lobe of lung Qualified Code(s): J69.0 - Pneumonitis due to inhalation of food and vomit Is this a current diagnosis for this admission?: Yes (3) Adynamic ileus Is this a current diagnosis for this admission?: Yes (4) Toxic megacolon Is this a current diagnosis for this admission?: Yes (5) Sigmoid volvulus Is this a current diagnosis for this admission?: Yes (6) Acute renal failure Qualifiers: Acute renal failure type: unspecified Qualified Code(s): N17.9 - Acute kidney failure, unspecified Is this a current diagnosis for this admission?: Yes (7) Chronic kidney disease, stage II (mild) Is this a current diagnosis for this admission?: Yes (8) Nodule of spleen Is this a current diagnosis for this admission?: Yes (9) Essential hypertension Is this a current diagnosis for this admission?: Yes (10) Hyperlipidemia, acquired Is this a current diagnosis for this admission?: Yes (11) BPH (benign prostatic hyperplasia) Qualifiers: Lower urinary tract symptom presence: unspecified whether lower urinary tract symptoms present Qualified Code(s): N40.0 - Benign prostatic hyperplasia without lower urinary tract symptoms Is this a current diagnosis for this admission?: Yes (12) Atherosclerotic vascular disease Is this a current diagnosis for this admission?: Yes (13) Hypotension Qualifiers: Hypotension type: unspecified hypotension type Qualified Code(s): I95.9 - Hypotension, unspecified Is this a current diagnosis for this admission?: Yes (14) Hypoxia Is this a current diagnosis for this admission?: Yes - Time Time Spent with patient: 25-34 minutes - Plan Summary Plan Summary: Patient is improving slowly. He is off vasopressor this time. He is having some reflux on his feeding therefore we will resume his erythromycin IV back. In the meantime continue the Reglan. Once the patient able to tolerate tube feedings then maybe we can wean off TPN as well. Continue current antibiotics at this time. Refer to long-term acute care facility for weaning from TPN as well as tracheostomy and ventilator.
[2017-01-09] MEDS: CEFEPIME 2 GM/D5W RTU 50 ML IV SCH (10:41)
[2017-01-09] MEDS: ERYTHROMYCIN LACTOBIONATE 250 MG in NORMAL SALINE 100 ML IV SCH ×2 (10:41→17:29)
--- NOTE | 2017-01-09 13:23 | PDOC PROGRESS REPORT ---
Subjective Progress Note for:: 01/09/17 Subjective:: awake and responsive Physical Exam Vital Signs: Temp Pulse Resp BP Pulse Ox 98.6 F 76 15 116/39 L 100 01/09/17 08:00 01/09/17 08:00 01/09/17 08:00 01/09/17 08:00 01/09/17 08:00 Pulse Oximeter Continuous Start: 12/24/16 22: 07 Freq: Status: Complete Document 12/24/16 20:00 [facility] (Rec: 12/24/16 22:09 [facility] [email or web address]) Pulse Oximetry Assessment Oxygen Saturation (92-100) 100 Oxygen Flow Rate (L/min) 12 Oxygen Delivery Method Non-Rebreather Fraction of Inspired Oxygen (FIO2) 100 Equipment Usage Initial Set Up Continuous Pulse Oximeter 24 Hour Charge Charge Now Continuous SpO2 Machine # [id number] Intake & Output 01/08/17 01/09/17 01/10/17 06:59 06:59 06:59 Intake Total 5233 3384 Output Total 4627 4085 105 Balance -294 -701 -105 Weight 77 kg 76.8 kg General appearance: PRESENT: no acute distress, cooperative, disheveled, thin, well-developed Head exam: PRESENT: atraumatic, normocephalic Eye exam: PRESENT: conjunctiva pale, EOMI Mouth exam: PRESENT: dry mucosa, neck supple - # 6 shiley trach tube, tongue midline Neck exam: PRESENT: carotid bruit Respiratory exam: PRESENT: decreased breath sounds, prolonged expiratory phas, rhonchi, symmetrical, unlabored Cardiovascular exam: PRESENT: RRR, +S1, +S2 Pulses: PRESENT: normal radial pulses GI/Abdominal exam: PRESENT: other - ostomy and feeding tubes Rectal exam: PRESENT: deferred Gentrourinary exam: PRESENT: indwelling catheter Musculoskeletal exam: PRESENT: normal inspection Neurological exam: PRESENT: awake Psychiatric exam: PRESENT: flat affect Skin exam: PRESENT: dry, warm Results Laboratory Results: 01/09/17 04:50 01/09/17 04:50 01/09/17 01/09/17 01/09/17 04:45 04:50 04:50 WBC 7.1 RBC 2.51 L Hgb 8.1 L Hct 23.2 L MCV 93 MCH 32.3 MCHC 34.9 RDW 13.4 Plt Count 222 Carbonic Acid 1.27 HCO3/H2CO3 Ratio 23:1 ABG pH 7.46 H ABG pCO2 42.1 ABG pO2 123.3 H ABG HCO3 29.3 H ABG O2 Saturation 98.6 H ABG Base Excess 5.0 FiO2 30% Sodium 140.3 Potassium 4.2 Chloride 103 Carbon Dioxide 32 H Anion Gap 5 BUN 40 H Creatinine 1.33 H Est GFR ( Amer) > 60 Est GFR (Non-Af Amer) 52 L Glucose 181 H Calcium 8.6 Phosphorus 2.8 Magnesium 2.2 Total Bilirubin 0.3 AST 25 ALT 45 Alkaline Phosphatase 117 Total Protein 5.0 L Albumin 2.1 L Prealbumin 16.9 L 01/03/17 09:51 Blood Blood Culture - Final NO GROWTH IN 5 DAYS 01/03/17 08:30 Blood Blood Culture - Final NO GROWTH IN 5 DAYS 12/24/16 12/24/16 12/24/16 16:50 18:10 21:50 Creatine Kinase 29 L 72 CK-MB (CK-2) Troponin I 0.036 12/24/16 12/25/16 12/25/16 21:50 00:35 00:35 Creatine Kinase 66 CK-MB (CK-2) Troponin I 0.038 0.044 12/25/16 12/25/16 21:50 21:50 Creatine Kinase 26 L CK-MB (CK-2) 0.59 Troponin I 0.033 Impressions: Chest/Abdomen CTA 12/24/16 00:00 IMPRESSION: 1. NORMAL CTA OF THE CHEST. NO PULMONARY EMBOLI. 2. MODERATE BILATERAL PLEURAL EFFUSIONS. DENSE CONSOLIDATION IN THE LOWER LOBES DUE TO ATELECTASIS. CANNOT EXCLUDE PNEUMONIA. 3. FINDINGS IN THE UPPER ABDOMEN DESCRIBED. POSTOPERATIVE TINY BUBBLES OF FREE AIR. DISTENDED STOMACH AND VISUALIZED SMALL BOWEL. Chest CT 12/28/16 00:00 IMPRESSION: Small bilateral pleural effusions are again identified. The previously described associated airspace consolidation most consistent with atelectatic changes appears improved. There has been interval development of fairly diffuse patchy ground-glass opacities which are slightly more pronounced in the right lung as compared to the left. These could represent areas of pulmonary edema or developing infiltrates. Other findings as noted above Head CT 01/01/17 00:00 IMPRESSION: CHRONIC CHANGES OF ATROPHY AND MICROVASCULAR ISCHEMIA. NO ACUTE PROCESS. Abdomen/Pelvis CT 01/03/17 14:07 IMPRESSION: 1. SURGICAL CHANGES DESCRIBED WITH SUBTOTAL COLECTOMY AND ILEOSTOMY IN THE RIGHT LOWER QUADRANT. THERE IS NO SIGNIFICANT DISTENTION OF THE STOMACH OR SMALL BOWEL DILATION. CONTRAST FILLS THE ENTIRE SMALL BOWEL TO THE ILEOSTOMY WITH NO EVIDENCE OF BOWEL OBSTRUCTION. 2. MODERATE FREE FLUID IN THE ABDOMEN AND PELVIS. 3. OTHER INCIDENTAL FINDINGS ABOVE. KUB X-Ray 01/06/17 00:00 IMPRESSION: Tube placement as described. Chest X-Ray 01/09/17 06:00 IMPRESSION: No acute cardiopulmonary findings. Lines and tubes. Stable. Assessment & Plan - Diagnosis (1) Acute renal failure Qualifiers: Acute renal failure type: unspecified Qualified Code(s): N17.9 - Acute kidney failure, unspecified Is this a current diagnosis for this admission?: Yes (2) Acute respiratory failure with hypoxia and hypercapnia Is this a current diagnosis for this admission?: Yes (3) Aspiration into respiratory tract Is this a current diagnosis for this admission?: Yes (4) Septic shock Is this a current diagnosis for this admission?: Yes - Time Critical Time spent with patient: 35 or more minutes - 45 min
[2017-01-10] MEDS: ERYTHROMYCIN LACTOBIONATE 250 MG in NORMAL SALINE 100 ML IV SCH ×2 (01:36→10:07)
[2017-01-10 05:04] LABS: ARTERIAL BLOOD BASE EXCESS 4.7 mmol/L; ARTERIAL BLOOD O2 SATURATION 98.2 % (94-98)
[2017-01-10 05:20] LABS: ANION GAP 5 (5-19); BLOOD UREA NITROGEN 41 mg/dL (7-20); CALCIUM 8.8 mg/dL (8.4-10.2); CARBON DIOXIDE 28 mmol/L (22-30); CHLORIDE 106 mmol/L (98-107); CREATININE RESULT 1.26 mg/dL (0.52-1.25); GLUCOSE 155 mg/dL (75-110); HEMATOCRIT 22.9 % (37.9-51.0); HGB HCT DIFFERENCE 1.1; MAGNESIUM 2.1 mg/dL (1.6-2.3); MEAN CORPUSCULAR HGB CONC 34.7 g/dL (32.0-36.0); MEAN CORPUSCULAR VOLUME 92 fl (80-97); POTASSIUM 4.1 mmol/L (3.6-5.0); RED BLOOD COUNT 2.48 10^6/uL (4.35-5.55); SODIUM 138.9 mmol/L (137-145)
[2017-01-10] MEDS: METOCLOPRAMIDE HCL INJ/PF 10 MG/2 ML SDV IV SCH ×4 (05:41→23:16)
[2017-01-10] MEDS: AMINO ACIDS 5%/D25W 1,000 ML IV PRN ×2 (06:28→17:52)
[2017-01-10] MEDS: ENOXAPARIN SODIUM INJ 40 MG/0.4 ML DISP.SYRIN SUBCUT SCH (08:27)
--- NOTE | 2017-01-10 10:18 | PROGRESS NOTE E ---
Progress Note NAME: GUSTAVO HEARN : 1935 AGE: 81Y DATE: 01/10/2017 ROOM: 612 SUBJECTIVE: The patient appears to be progressing relatively well. He is still on the vent but on spontaneous breathing. He appears to be more alert and appears to be responding appropriately. Abdomen is soft and ileostomy functioning well. He seems to tolerate his small amount of tube feeds from last night. PLAN: Increase his tube feeds gradually but continue TPN until enough tube feeds are being tolerated. DICTATING PHYSICIAN: TEX MCKEON M.D. [id number] PHY#: [id number] ID: [id number] JOB#: [id number] ACCT: [id number] cc: >
--- NOTE | 2017-01-10 11:01 | PDOC PROGRESS REPORT ---
Subjective Progress Note for:: 01/10/17 Subjective:: Patient has a tracheostomy in place on the ventilator but he denies any complaints today. Physical Exam Vital Signs: Temp Pulse Resp BP Pulse Ox 98.2 F 78 18 133/56 H 100 01/10/17 08:00 01/10/17 08:00 01/10/17 08:00 01/10/17 08:00 01/10/17 08:00 Pulse Oximeter Continuous Start: 12/24/16 22: 07 Freq: Status: Complete Document 12/24/16 20:00 [facility] (Rec: 12/24/16 22:09 [facility] [email or web address]) Pulse Oximetry Assessment Oxygen Saturation (92-100) 100 Oxygen Flow Rate (L/min) 12 Oxygen Delivery Method Non-Rebreather Fraction of Inspired Oxygen (FIO2) 100 Equipment Usage Initial Set Up Continuous Pulse Oximeter 24 Hour Charge Charge Now Continuous SpO2 Machine # [id number] Intake & Output 01/09/17 01/10/17 01/11/17 06:59 06:59 06:59 Intake Total 3384 2791 Output Total 4085 2705 125 Balance -701 86 -125 Weight 76.8 kg 76.1 kg General appearance: PRESENT: no acute distress Eye exam: PRESENT: conjunctiva pink. ABSENT: scleral icterus Ear exam: PRESENT: normal external ear exam Mouth exam: PRESENT: moist, tongue midline Neck exam: PRESENT: tracheostomy. ABSENT: carotid bruit, JVD, lymphadenopathy, thyromegaly Respiratory exam: PRESENT: clear to auscultation annabel. ABSENT: rales, rhonchi, wheezes Cardiovascular exam: PRESENT: RRR. ABSENT: diastolic murmur, rubs, systolic murmur GI/Abdominal exam: PRESENT: normal bowel sounds, soft, other - Colostomy present on the right. PEG tube present on the left.. ABSENT: distended, guarding, mass, organolmegaly, rebound, tenderness Extremities exam: ABSENT: calf tenderness, clubbing, pedal edema Neurological exam: PRESENT: alert, awake, motor sensory deficit Psychiatric exam: PRESENT: appropriate affect Skin exam: PRESENT: dry, intact, warm. ABSENT: cyanosis, rash Results Laboratory Results: 01/10/17 04:40 01/10/17 04:40 01/09/17 01/10/17 01/10/17 04:55 04:40 04:40 WBC RBC Hgb Hct MCV MCH MCHC RDW Plt Count Carbonic Acid 1.24 HCO3/H2CO3 Ratio 23:1 ABG pH 7.46 H ABG pCO2 41.3 ABG pO2 110.0 H ABG HCO3 28.9 H ABG O2 Saturation 98.2 H ABG Base Excess 4.7 FiO2 30% Sodium 138.9 Potassium 4.1 Chloride 106 Carbon Dioxide 28 Anion Gap 5 BUN 41 H Creatinine 1.26 H Est GFR ( Amer) > 60 Est GFR (Non-Af Amer) 55 L Glucose 155 H Calcium 8.8 Magnesium 2.1 Triglycerides 37 01/10/17 04:40 WBC 7.0 RBC 2.48 L Hgb 8.0 L Hct 22.9 L MCV 92 MCH 32.0 MCHC 34.7 RDW 13.0 Plt Count 204 Carbonic Acid HCO3/H2CO3 Ratio ABG pH ABG pCO2 ABG pO2 ABG HCO3 ABG O2 Saturation ABG Base Excess FiO2 Sodium Potassium Chloride Carbon Dioxide Anion Gap BUN Creatinine Est GFR ( Amer) Est GFR (Non-Af Amer) Glucose Calcium Magnesium Triglycerides 12/24/16 12/24/16 12/24/16 16:50 18:10 21:50 Creatine Kinase 29 L 72 CK-MB (CK-2) Troponin I 0.036 12/24/16 12/25/16 12/25/16 21:50 00:35 00:35 Creatine Kinase 66 CK-MB (CK-2) Troponin I 0.038 0.044 12/25/16 12/25/16 21:50 21:50 Creatine Kinase 26 L CK-MB (CK-2) 0.59 Troponin I 0.033 Impressions: Chest/Abdomen CTA 12/24/16 00:00 IMPRESSION: 1. NORMAL CTA OF THE CHEST. NO PULMONARY EMBOLI. 2. MODERATE BILATERAL PLEURAL EFFUSIONS. DENSE CONSOLIDATION IN THE LOWER LOBES DUE TO ATELECTASIS. CANNOT EXCLUDE PNEUMONIA. 3. FINDINGS IN THE UPPER ABDOMEN DESCRIBED. POSTOPERATIVE TINY BUBBLES OF FREE AIR. DISTENDED STOMACH AND VISUALIZED SMALL BOWEL. Chest CT 12/28/16 00:00 IMPRESSION: Small bilateral pleural effusions are again identified. The previously described associated airspace consolidation most consistent with atelectatic changes appears improved. There has been interval development of fairly diffuse patchy ground-glass opacities which are slightly more pronounced in the right lung as compared to the left. These could represent areas of pulmonary edema or developing infiltrates. Other findings as noted above Head CT 01/01/17 00:00 IMPRESSION: CHRONIC CHANGES OF ATROPHY AND MICROVASCULAR ISCHEMIA. NO ACUTE PROCESS. Abdomen/Pelvis CT 01/03/17 14:07 IMPRESSION: 1. SURGICAL CHANGES DESCRIBED WITH SUBTOTAL COLECTOMY AND ILEOSTOMY IN THE RIGHT LOWER QUADRANT. THERE IS NO SIGNIFICANT DISTENTION OF THE STOMACH OR SMALL BOWEL DILATION. CONTRAST FILLS THE ENTIRE SMALL BOWEL TO THE ILEOSTOMY WITH NO EVIDENCE OF BOWEL OBSTRUCTION. 2. MODERATE FREE FLUID IN THE ABDOMEN AND PELVIS. 3. OTHER INCIDENTAL FINDINGS ABOVE. KUB X-Ray 01/06/17 00:00 IMPRESSION: Tube placement as described. Chest X-Ray 01/09/17 06:00 IMPRESSION: No acute cardiopulmonary findings. Lines and tubes. Stable. Assessment & Plan - Diagnosis (1) Acute hypoxemic respiratory failure Is this a current diagnosis for this admission?: YesPlan: Secondary to aspiration. The patient has a tracheostomy in place for failure to wean from the ventilator. Significant weakness secondary to malnutrition has been affecting his respiratory status. We will continue with the TPN and tube feeds as tolerated. Will be going to long-term care when a bed is available. (2) Aspiration pneumonia Qualifiers: Aspiration pneumonia type: unspecified Laterality: bilateral Lung location: lower lobe of lung Qualified Code(s): J69.0 - Pneumonitis due to inhalation of food and vomit Is this a current diagnosis for this admission?: YesPlan: he has completed a course of therapy for the pneumonia. (3) Sigmoid volvulus Is this a current diagnosis for this admission?: YesPlan: Has had surgical repair (4) Toxic megacolon Is this a current diagnosis for this admission?: YesPlan: Has had surgical repair. Colostomy appears to be functioning properly. The patient is having high residual and is started on Reglan and erythromycin (5) Acute renal failure Qualifiers: Acute renal failure type: unspecified Qualified Code(s): N17.9 - Acute kidney failure, unspecified Is this a current diagnosis for this admission?: YesPlan: Patient has a stable creatinine. followed by nephrology. (6) BPH (benign prostatic hyperplasia) Qualifiers: Lower urinary tract symptom presence: unspecified whether lower urinary tract symptoms present Qualified Code(s): N40.0 - Benign prostatic hyperplasia without lower urinary tract symptoms Is this a current diagnosis for this admission?: Yes (7) Essential hypertension Is this a current diagnosis for this admission?: Yes (8) Hyperlipidemia, acquired Is this a current diagnosis for this admission?: Yes (9) Adynamic ileus Is this a current diagnosis for this admission?: YesPlan: Has been getting TPN. Tube feeds. Will try to wean off TPN. (10) Anemia Is this a current diagnosis for this admission?: YesPlan: Hemoglobin has remained stable. (11) Hypotension Qualifiers: Hypotension type: unspecified hypotension type Qualified Code(s): I95.9 - Hypotension, unspecified Is this a current diagnosis for this admission?: YesPlan: Resolved - Time Time Spent with patient: 35 or more minutes - Inpatient Certification Medical Necessity: Need Close Monitoring Due to Risk of Patient Decompensation - Plan Summary Plan Summary: Go to an LTAC when a bed becomes available.
[2017-01-10] MEDS: INSULIN REG, HUMAN 100 UNIT/ML 3 ML VIAL (PYX) SUBCUT PRN (23:16)
[2017-01-11] MEDS: MORPHINE SULFATE 10 MG/ML INJ IV PRN (00:03)
[2017-01-11 05:15] LABS: ARTERIAL BLOOD BASE EXCESS 3.7 mmol/L
[2017-01-11] MEDS: METOCLOPRAMIDE HCL INJ/PF 10 MG/2 ML SDV IV SCH (05:18)
[2017-01-11] MEDS: AMINO ACIDS 5%/D25W 1,000 ML IV PRN (05:18)
[2017-01-11 05:22] LABS: ABSOLUTE BASOPHILS # (AUTO) 0.1 10^3/uL (0.0-0.2); ABSOLUTE EOSINOPHILS # (AUTO) 0.2 10^3/uL (0.0-0.6); ABSOLUTE LYMPHOCYTES (AUTO) 0.9 10^3/uL (0.5-4.7); ABSOLUTE MONOCYTES (AUTO) 0.8 10^3/uL (0.1-1.4); EOSINOPHILS % (AUTO) 2.9 % (0-6); LYMPHOCYTES % (AUTO) 12.6 % (13-45); MEAN CORPUSCULAR HEMOGLOBIN 32.1 pg (27.0-33.4); MEAN CORPUSCULAR HGB CONC 34.8 g/dL (32.0-36.0); MEAN CORPUSCULAR VOLUME 92 fl (80-97); MONOCYTES % (AUTO) 11.9 % (3-13); RED BLOOD COUNT 2.49 10^6/uL (4.35-5.55); SEGMENTED NEUTROPHILS % (AUTO) 71.6 % (42-78); WHITE BLOOD COUNT 6.9 10^3/uL (4.0-10.5)
[2017-01-11 05:37] LABS: ANION GAP 5 (5-19); BLOOD UREA NITROGEN 40 mg/dL (7-20); CALCIUM 9.1 mg/dL (8.4-10.2); CARBON DIOXIDE 28 mmol/L (22-30); CHLORIDE 107 mmol/L (98-107); CREATININE RESULT 1.23 mg/dL (0.52-1.25); GLUCOSE 159 mg/dL (75-110); POTASSIUM 4.1 mmol/L (3.6-5.0); SODIUM 139.6 mmol/L (137-145)
--- NOTE | 2017-01-11 07:45 | RADIOLOGY REPORT (SQ) ---
EXAM DESCRIPTION: CHEST SINGLE VIEW COMPLETED DATE/TIME: 01/11/2017 6:57 am REASON FOR STUDY: resp fail COMPARISON: 01/09/2017. EXAM PARAMETERS: NUMBER OF VIEWS: One view. TECHNIQUE: Single frontal radiographic view of the chest acquired. RADIATION DOSE: NA LIMITATIONS: None. FINDINGS: LUNGS AND PLEURA: No opacities, masses or pneumothorax. No pleural effusion. MEDIASTINUM AND HILAR STRUCTURES: No masses. Contour normal. HEART AND VASCULAR STRUCTURES: Normal cardiac silhouette size. Atherosclerosis. BONES: No acute findings. HARDWARE: Midline tracheostomy. Adequate appearing left subclavian central line. Likely adequate en teric tube partially obscured distally. OTHER: No other significant finding. IMPRESSION: No acute cardiopulmonary findings. Lines and tubes. TECHNICAL DOCUMENTATION: JOB ID: [id number]
--- NOTE | 2017-01-11 07:57 | PDOC TRANSFER SUMMARY ---
General Admission Date/PCP: 12/19/16 06:53 ANJALI AVENDANO MD Transfer Date: 01/11/17 Accepting Facility: Other (Comments[facility] Accepting Physician: Dr. Lj Ortiz Resuscitation Status: Full Code - Transfer Diagnosis (1) Acute hypoxemic respiratory failure Is this a current diagnosis for this admission?: YesDiagnosis Summary: Patient failed to wean from the ventilator required a tracheostomy for long- term management until his nutritional status improves well enough to be weaned off of the ventilator. (2) Aspiration pneumonia Is this a current diagnosis for this admission?: YesDiagnosis Summary: Has completed a course of antibiotics for Enterobacter cloaca that grew from cultures. (3) Sigmoid volvulus Is this a current diagnosis for this admission?: YesDiagnosis Summary: Patient required a colectomy secondary to volvulus with bowel ischemia requiring an ileostomy placement. Because of nutritional requirements he had a PEG tube placed. (4) Toxic megacolon Is this a current diagnosis for this admission?: YesDiagnosis Summary: Status post colectomy for volvulus with bowel ischemia. (5) Acute renal failure Is this a current diagnosis for this admission?: YesDiagnosis Summary: Patient had acute on chronic renal failure stage III. (6) BPH (benign prostatic hyperplasia) Is this a current diagnosis for this admission?: Yes (7) Essential hypertension Is this a current diagnosis for this admission?: Yes (8) Hyperlipidemia, acquired Is this a current diagnosis for this admission?: Yes (9) Adynamic ileus Is this a current diagnosis for this admission?: YesDiagnosis Summary: Continues to require Reglan for decreased gastric emptying. Because of this he is continuing with TPN until his tube feeds are up high enough to support him nutritionally. (10) Anemia Is this a current diagnosis for this admission?: Yes (11) Hypotension Is this a current diagnosis for this admission?: YesDiagnosis Summary: Resolved. - Transfer Medications Home Medications: Aspirin [Ecotrin 81 mg EC Tablet] 81 mg PO ASDIR 07/19/12 Pravastatin Sodium [Pravachol] 40 mg PO QHS 07/19/12 Tolterodine Tartrate [Detrol LA] 4 mg PO DAILY 01/14/13 Finasteride [Proscar 5 mg Tablet] 5 mg PO DAILY 12/02/15 Pantoprazole Sodium 20 mg PO DAILY 12/16/16 Transfer Medications: Current Medications Acetaminophen (Tylenol Soln 325 Mg/10.15 Ml Udcup) 650 mg NG Q4HP PRN PRN Reason: FEVER Stop: 01/26/17 08:14 Last Admin: 01/03/17 02:26 Dose: 650 mg Dextrose (Dextrose Inj 50% Syringe (25 Gm/50 Ml)) 12.5 gm IV PRN PRN; Protocol PRN Reason: FOR BG 50-69 IN ALERT PATIENT Stop: 01/24/17 08:25 Dextrose (Dextrose Inj 50% Syringe (25 Gm/50 Ml)) 25 gm IV PRN PRN PRN Reason: Protocol Stop: 01/24/17 08:25 Enoxaparin Sodium (Lovenox Inj 40 Mg/0.4 Ml Disp.Syrin) [facility] [place] Stop: 01/25/17 07:59 Last Admin: 01/10/17 08:27 Dose: 40 mg Glucagon (Glucagen Inj 1 Mg Vial) 1 mg IM PRN PRN; Protocol PRN Reason: Evaluate for BG < 70 Stop: 01/24/17 08:25 Glucose (Glutose 40% Gel 15 Gm Tube) 15 gm PO PRN PRN; Protocol PRN Reason: FOR BG 50-69 IN ALERT PATIENT Stop: 01/24/17 08:25 Glucose (Glutose 40% Gel 15 Gm Tube) 30 gm PO PRN PRN; Protocol PRN Reason: FOR BG < 50 IN ALERT PATIENT Stop: 01/24/17 08:25 Propofol (Diprivan Rtu 1000 Mg/100 Ml Inf.Bottle) 100 mls @ 0 mls/hr IV CONTINUOUS PRN; Protocol; Titrate PRN Reason: THIS MED IS NOT "PRN" Stop: 01/24/17 00:05 Last Admin: 01/08/17 06:02 Dose: 100 ml Amino Acids (Clinimix 5%-25% Tpn Solution 1000 Ml Bag) 1,000 mls @ 95 mls/hr IV .CONTINUOUS PRN Stop: 01/25/17 10:38 Last Admin: 01/11/17 05:18 Dose: 1,000 ml Dextrose (D10w 1000 Ml Iv Soln) 1,000 mls @ 0 mls/hr IV .TEMPORARY PRN PRN Reason: As Directed Stop: 01/25/17 10:46 Last Admin: 01/07/17 03:26 Dose: 1,000 ml Hard Fat/Phenylephrine 40 mg/ (Dextrose) 254 mls @ 0 mls/hr IV CONTINUOUS PRN; Protocol; Titrate PRN Reason: THIS MED IS NOT "PRN" Stop: 02/01/17 18:57 Last Admin: 01/08/17 13:20 Dose: 40 mg Sodium Chloride (Nacl 0.9% 1000 Ml Iv Soln) 1,000 mls @ 10 mls/hr IV CONTINUOUS PRN PRN Reason: THIS MED IS NOT "PRN" Stop: 02/06/17 17:19 Insulin Human Regular (Humulin R (Pyxis) Insulin 100 Unit/Ml 3ml) 0 - 12 unit SUBCUT Q6HP PRN PRN Reason: Protocol Stop: 01/24/17 08:25 Last Admin: 01/10/17 23:16 Dose: 2 unit Levalbuterol HCl (Xopenex Neb 1.25 Mg/3 Ml Ampul) 1.25 mg NEB RTQ2HP PRN PRN Reason: wheezing Stop: 01/23/17 16:32 Last Admin: 12/31/16 16:25 Dose: 1.25 mg Metoclopramide HCl (Reglan Inj/Pf 10 Mg/2 Ml Sdv) 10 mg IV Q6 OSVALDO Stop: 02/09/17 17:59 Last Admin: 01/11/17 05:18 Dose: 10 mg Morphine Sulfate (Morphine 10 Mg/Ml Inj) 2 mg IV Q4HP PRN PRN Reason: PAIN Stop: 01/13/17 14:19 Last Admin: 01/11/17 00:03 Dose: 2 mg Pharmacy Profile Note (Medication Communication Order) 1 each MC .NOTICE NR Stop: 01/23/17 23:44 Pharmacy Profile Note (Medication Communication Order) 1 each MC .DOSE ADJUST OSVALDO Stop: 01/24/17 00:14 Sodium Chloride (Saline Flush 2.5 Ml Monoject Prefil Syrin) 2.5 ml IV Q8 OSVALDO Stop: 01/18/17 21:59 Last Admin: 01/11/17 05:18 Dose: 2.5 ml - Allergies Allergies/Adverse Reactions: No Known Allergies Allergy (Verified 12/16/16 11:33) - Diet/Activity Discharge Diet: Tube Feeding (Comments) - advance tube feeds as tolerated, also tpn Hospital Course Hospital Course: 81-year-old gentleman who presented with abdominal pain. Patient was found to have a sigmoid volvulus. The patient underwent exploratory laparotomy with a colectomy because of bowel ischemia. The patient postoperatively had a prolonged course. He was very difficult to wean off the ventilator because of his poor nutritional status. He was eventually extubated and was off the ventilator for approximately 4 days and then had worsening of his respiratory status requiring reintubation. Because of the reintubation a tracheostomy was placed. He also had a PEG tube placed for nutrition. Patient has been receiving TPN as his tube feeds have not been able to be increased to a high enough level yet. He has been started on Reglan for nutrition. The goal is for him to have his tube feeds increased and then the TPN stopped. Once his nutritional status improves well enough hopefully he can be weaned off of the ventilator. This is going to be long-term and the patient is to be transferred to [facility] long-term care facility for vent management. The patient's bowels have done well after the colectomy that he had for his sigmoid volvulus with bowel ischemia. Physical Exam Vital Signs: Temp Pulse Resp BP Pulse Ox 99.3 F 77 12 97/39 L 100 01/10/17 18:00 01/10/17 22:00 01/11/17 06:11 01/11/17 06:11 01/11/17 06:15 Pulse Oximeter Continuous Start: 12/24/16 22: 07 Freq: Status: Complete Document 12/24/16 20:00 [facility] (Rec: 12/24/16 22:09 [facility] [email or web address]) Pulse Oximetry Assessment Oxygen Saturation (92-100) 100 Oxygen Flow Rate (L/min) 12 Oxygen Delivery Method Non-Rebreather Fraction of Inspired Oxygen (FIO2) 100 Equipment Usage Initial Set Up Continuous Pulse Oximeter 24 Hour Charge Charge Now Continuous SpO2 Machine # [id number] Intake & Output 01/10/17 01/11/17 01/12/17 06:59 06:59 06:59 Intake Total 5056 4567 Output Total 3380 2806 Balance 86 -478 Weight 76.1 kg 76.5 kg General appearance: PRESENT: no acute distress Eye exam: PRESENT: conjunctiva pink. ABSENT: scleral icterus Mouth exam: PRESENT: moist, tongue midline Neck exam: PRESENT: tracheostomy. ABSENT: JVD Respiratory exam: PRESENT: clear to auscultation annabel. ABSENT: rales, rhonchi, wheezes Cardiovascular exam: PRESENT: RRR. ABSENT: diastolic murmur, rubs, systolic murmur GI/Abdominal exam: PRESENT: normal bowel sounds, soft. ABSENT: distended, guarding, mass, organolmegaly, rebound, tenderness Extremities exam: ABSENT: calf tenderness, clubbing, pedal edema Neurological exam: PRESENT: alert, awake, oriented to person, oriented to place , oriented to time, oriented to situation, CN II-XII grossly intact. ABSENT: motor sensory deficit Psychiatric exam: PRESENT: appropriate affect Skin exam: PRESENT: dry, intact, warm. ABSENT: cyanosis, rash Results Laboratory Results: 01/11/17 04:55 01/11/17 04:55 01/11/17 01/11/17 01/11/17 04:55 04:55 04:55 WBC 6.9 RBC 2.49 L Hgb 8.0 L Hct 23.0 L MCV 92 MCH 32.1 MCHC 34.8 RDW 13.0 Plt Count 219 Seg Neutrophils % 71.6 Lymphocytes % 12.6 L Monocytes % 11.9 Eosinophils % 2.9 Basophils % 1.0 Absolute Neutrophils 5.0 Absolute Lymphocytes 0.9 Absolute Monocytes 0.8 Absolute Eosinophils 0.2 Absolute Basophils 0.1 Carbonic Acid 1.38 H HCO3/H2CO3 Ratio 20:1 ABG pH 7.41 ABG pCO2 45.9 H ABG pO2 109.8 H ABG HCO3 28.7 H ABG O2 Saturation 98.0 ABG Base Excess 3.7 FiO2 30% Sodium 139.6 Potassium 4.1 Chloride 107 Carbon Dioxide 28 Anion Gap 5 BUN 40 H Creatinine 1.23 Est GFR ( Amer) > 60 Est GFR (Non-Af Amer) 57 L Glucose 159 H Calcium 9.1 12/24/16 12/24/16 12/24/16 16:50 18:10 21:50 Creatine Kinase 29 L 72 CK-MB (CK-2) Troponin I 0.036 12/24/16 12/25/16 12/25/16 21:50 00:35 00:35 Creatine Kinase 66 CK-MB (CK-2) Troponin I 0.038 0.044 07/16/17 07/16/17 21:50 21:50 Creatine Kinase 26 L CK-MB (CK-2) 0.59 Troponin I 0.033 Impressions: Chest/Abdomen CTA 12/24/16 00:00 IMPRESSION: 1. NORMAL CTA OF THE CHEST. NO PULMONARY EMBOLI. 2. MODERATE BILATERAL PLEURAL EFFUSIONS. DENSE CONSOLIDATION IN THE LOWER LOBES DUE TO ATELECTASIS. CANNOT EXCLUDE PNEUMONIA. 3. FINDINGS IN THE UPPER ABDOMEN DESCRIBED. POSTOPERATIVE TINY BUBBLES OF FREE AIR. DISTENDED STOMACH AND VISUALIZED SMALL BOWEL. Chest CT 12/28/16 00:00 IMPRESSION: Small bilateral pleural effusions are again identified. The previously described associated airspace consolidation most consistent with atelectatic changes appears improved. There has been interval development of fairly diffuse patchy ground-glass opacities which are slightly more pronounced in the right lung as compared to the left. These could represent areas of pulmonary edema or developing infiltrates. Other findings as noted above Head CT 01/01/17 00:00 IMPRESSION: CHRONIC CHANGES OF ATROPHY AND MICROVASCULAR ISCHEMIA. NO ACUTE PROCESS. Abdomen/Pelvis CT 01/03/17 14:07 IMPRESSION: 1. SURGICAL CHANGES DESCRIBED WITH SUBTOTAL COLECTOMY AND ILEOSTOMY IN THE RIGHT LOWER QUADRANT. THERE IS NO SIGNIFICANT DISTENTION OF THE STOMACH OR SMALL BOWEL DILATION. CONTRAST FILLS THE ENTIRE SMALL BOWEL TO THE ILEOSTOMY WITH NO EVIDENCE OF BOWEL OBSTRUCTION. 2. MODERATE FREE FLUID IN THE ABDOMEN AND PELVIS. 3. OTHER INCIDENTAL FINDINGS ABOVE. KUB X-Ray 01/06/17 00:00 IMPRESSION: Tube placement as described. Chest X-Ray 01/11/17 06:00 IMPRESSION: No acute cardiopulmonary findings. Lines and tubes. Plan Discharge Plan: Transfer to [facility] long-term care facility Time Spent: Greater than 30 Minutes
[2017-01-11 08:35] VITALS: BP 98/47
--- NOTE | 2017-01-11 10:07 | PDOC PROGRESS REPORT ---
Subjective Progress Note for:: 01/11/17 Subjective:: awake and alert awaiting [facility] transfer to LTAC Physical Exam Vital Signs: Temp Pulse Resp BP Pulse Ox 98.6 F 76 18 98/47 L 97 01/11/17 08:00 01/11/17 08:00 01/11/17 08:00 01/11/17 08:00 01/11/17 08:00 Pulse Oximeter Continuous Start: 12/24/16 22: 07 Freq: Status: Complete Document 12/24/16 20:00 [facility] (Rec: 12/24/16 22:09 [facility] [email or web address]) Pulse Oximetry Assessment Oxygen Saturation (92-100) 100 Oxygen Flow Rate 12 Oxygen Delivery Method Non-Rebreather Fraction of Inspired Oxygen (FIO2) 100 Equipment Usage Initial Set Up Continuous Pulse Oximeter 24 Hour Charge Charge Now Continuous SpO2 Machine # [id number] Intake & Output 01/10/17 01/11/17 01/12/17 06:59 06:59 06:59 Intake Total 2791 2557 Output Total 270 3035 100 Balance 86 -478 -100 Weight 76.1 kg 76.5 kg General appearance: PRESENT: no acute distress, cooperative, disheveled, thin, well-developed Head exam: PRESENT: atraumatic, normocephalic Eye exam: PRESENT: conjunctiva pale, EOMI Mouth exam: PRESENT: dry mucosa, neck supple, tongue midline, other - trach tube in midline Neck exam: ABSENT: carotid bruit, JVD, lymphadenopathy, thyromegaly Respiratory exam: PRESENT: decreased breath sounds, prolonged expiratory phas, rhonchi, symmetrical, unlabored Cardiovascular exam: PRESENT: RRR, +S1, +S2 Pulses: PRESENT: normal radial pulses GI/Abdominal exam: PRESENT: other - feeding tube ;ostomy Rectal exam: PRESENT: deferred Gentrourinary exam: PRESENT: indwelling catheter Musculoskeletal exam: PRESENT: normal inspection Neurological exam: PRESENT: alert, awake Psychiatric exam: PRESENT: depressed, flat affect Skin exam: PRESENT: dry, warm Results Laboratory Results: 01/11/17 04:55 01/11/17 04:55 01/11/17 01/11/17 01/11/17 04:55 04:55 04:55 WBC 6.9 RBC 2.49 L Hgb 8.0 L Hct 23.0 L MCV 92 MCH 32.1 MCHC 34.8 RDW 13.0 Plt Count 219 Seg Neutrophils % 71.6 Lymphocytes % 12.6 L Monocytes % 11.9 Eosinophils % 2.9 Basophils % 1.0 Absolute Neutrophils 5.0 Absolute Lymphocytes 0.9 Absolute Monocytes 0.8 Absolute Eosinophils 0.2 Absolute Basophils 0.1 Carbonic Acid 1.38 H HCO3/H2CO3 Ratio 20:1 ABG pH 7.41 ABG pCO2 45.9 H ABG pO2 109.8 H ABG HCO3 28.7 H ABG O2 Saturation 98.0 ABG Base Excess 3.7 FiO2 30% Sodium 139.6 Potassium 4.1 Chloride 107 Carbon Dioxide 28 Anion Gap 5 BUN 40 H Creatinine 1.23 Est GFR ( Amer) > 60 Est GFR (Non-Af Amer) 57 L Glucose 159 H Calcium 9.1 12/24/16 12/24/16 12/24/16 16:50 18:10 21:50 Creatine Kinase 29 L 72 CK-MB (CK-2) Troponin I 0.036 12/24/16 12/25/16 12/25/16 21:50 00:35 00:35 Creatine Kinase 66 CK-MB (CK-2) Troponin I 0.038 0.044 12/25/16 12/25/16 21:50 21:50 Creatine Kinase 26 L CK-MB (CK-2) 0.59 Troponin I 0.033 Impressions: Chest/Abdomen CTA 12/24/16 00:00 IMPRESSION: 1. NORMAL CTA OF THE CHEST. NO PULMONARY EMBOLI. 2. MODERATE BILATERAL PLEURAL EFFUSIONS. DENSE CONSOLIDATION IN THE LOWER LOBES DUE TO ATELECTASIS. CANNOT EXCLUDE PNEUMONIA. 3. FINDINGS IN THE UPPER ABDOMEN DESCRIBED. POSTOPERATIVE TINY BUBBLES OF FREE AIR. DISTENDED STOMACH AND VISUALIZED SMALL BOWEL. Chest CT 12/28/16 00:00 IMPRESSION: Small bilateral pleural effusions are again identified. The previously described associated airspace consolidation most consistent with atelectatic changes appears improved. There has been interval development of fairly diffuse patchy ground-glass opacities which are slightly more pronounced in the right lung as compared to the left. These could represent areas of pulmonary edema or developing infiltrates. Other findings as noted above Head CT 01/01/17 00:00 IMPRESSION: CHRONIC CHANGES OF ATROPHY AND MICROVASCULAR ISCHEMIA. NO ACUTE PROCESS. Abdomen/Pelvis CT 01/03/17 14:07 IMPRESSION: 1. SURGICAL CHANGES DESCRIBED WITH SUBTOTAL COLECTOMY AND ILEOSTOMY IN THE RIGHT LOWER QUADRANT. THERE IS NO SIGNIFICANT DISTENTION OF THE STOMACH OR SMALL BOWEL DILATION. CONTRAST FILLS THE ENTIRE SMALL BOWEL TO THE ILEOSTOMY WITH NO EVIDENCE OF BOWEL OBSTRUCTION. 2. MODERATE FREE FLUID IN THE ABDOMEN AND PELVIS. 3. OTHER INCIDENTAL FINDINGS ABOVE. KUB X-Ray 01/06/17 00:00 IMPRESSION: Tube placement as described. Chest X-Ray 01/11/17 06:00 IMPRESSION: No acute cardiopulmonary findings. Lines and tubes. Assessment & Plan - Diagnosis (1) Acute renal failure Qualifiers: Acute renal failure type: unspecified Qualified Code(s): N17.9 - Acute kidney failure, unspecified Is this a current diagnosis for this admission?: No (2) Acute respiratory failure with hypoxia and hypercapnia Is this a current diagnosis for this admission?: YesPlan: acute phase resolve (3) Aspiration into respiratory tract Is this a current diagnosis for this admission?: Yes (4) Septic shock Is this a current diagnosis for this admission?: No - Time Critical Time spent with patient: 15-24 minutes
== END 2017-01-11 09:10 | DRG 3 ==
LOC: INOR 06:53 → ICU 13:35 → 5 12-22 14:55 → 3N 12-24 18:05 → ICU 12-24 23:43
PROVIDERS: ADMIT Surgery; ATTEND Surgery
PROC: 0D1B0Z4 Bypass Ileum to Cutaneous, Open Approach (ICD-10-PCS; 2016-12-19)
PROC: 07B Lymphatic and Hemic Systems, Excision (ICD-10-PCS; 2016-12-19)
PROC: 0DTE0ZZ Resection of Large Intestine, Open Approach (ICD-10-PCS; 2016-12-19)
PROC: 0DJD8ZZ Inspection of Lower Intestinal Tract, Via Natural or Artificial Opening Endoscopic (ICD-10-PCS; 2016-12-19)
PROC: 5A1955Z Respiratory Ventilation, Greater than 96 Consecutive Hours (ICD-10-PCS; 2016-12-19)
PROC: 3E0F73Z Introduction of Anti-inflammatory into Respiratory Tract, Via Natural or Artificial Opening (ICD-10-PCS; 2016-12-24)
PROC: 02HV33Z Insertion of Infusion Device into Superior Vena Cava, Percutaneous Approach (ICD-10-PCS; 2016-12-25)
PROC: B548ZZA Ultrasonography of Superior Vena Cava, Guidance (ICD-10-PCS; 2016-12-25)
PROC: 0D9670Z Drainage of Stomach with Drainage Device, Via Natural or Artificial Opening (ICD-10-PCS; 2016-12-27)
PROC: 0DB38ZX Excision of Lower Esophagus, Via Natural or Artificial Opening Endoscopic, Diagnostic (ICD-10-PCS; 2016-12-28)
PROC: 0DB68ZX Excision of Stomach, Via Natural or Artificial Opening Endoscopic, Diagnostic (ICD-10-PCS; 2016-12-28)
PROC: 02HV33Z Insertion of Infusion Device into Superior Vena Cava, Percutaneous Approach (ICD-10-PCS; 2017-01-04)
PROC: 5A1955Z Respiratory Ventilation, Greater than 96 Consecutive Hours (ICD-10-PCS; 2017-01-05)
PROC: 0DH63UZ Insertion of Feeding Device into Stomach, Percutaneous Approach (ICD-10-PCS; 2017-01-05)
PROC: 3E0G76Z Introduction of Nutritional Substance into Upper GI, Via Natural or Artificial Opening (ICD-10-PCS; 2017-01-05)
PROC: 0B110F4 Bypass Trachea to Cutaneous with Tracheostomy Device, Open Approach (ICD-10-PCS; principal; 2017-01-05 11:15)
PROC: 5A09457 Assistance with Respiratory Ventilation, 24-96 Consecutive Hours, Continuous Positive Airway Pressure (ICD-10-PCS; 2017-01-06)
DX: K59.31 Toxic megacolon (principal); K56.2 Volvulus; N17.0 Acute kidney failure with tubular necrosis; J95.821 Acute postprocedural respiratory failure; J69.0 Pneumonitis due to inhalation of food and vomit; A41.9 Sepsis, unspecified organism; R65.21 Severe sepsis with septic shock; K94.23 Gastrostomy malfunction; K56.0 Paralytic ileus; T81.4XXA Infection following a procedure, initial encounter; K91.2 Postsurgical malabsorption, not elsewhere classified; R06.6 Hiccough; K21.0 Gastro-esophageal reflux disease with esophagitis; K29.70 Gastritis, unspecified, without bleeding; Y83.3 Surgical operation with formation of external stoma as the cause of abnormal reaction of the patient, or of later complication, without mention of misadventure at the time of the procedure; I12.9 Hypertensive chronic kidney disease with stage 1 through stage 4 chronic kidney disease, or unspecified chronic kidney disease; N18.2 Chronic kidney disease, stage 2 (mild); E78.5 Hyperlipidemia, unspecified; N40.0 Benign prostatic hyperplasia without lower urinary tract symptoms; I95.9 Hypotension, unspecified; Y83.6 Removal of other organ (partial) (total) as the cause of abnormal reaction of the patient, or of later complication, without mention of misadventure at the time of the procedure; B96.89 Other specified bacterial agents as the cause of diseases classified elsewhere; B95.7 Other staphylococcus as the cause of diseases classified elsewhere; D64.9 Anemia, unspecified; D73.89 Other diseases of spleen; Z79.899 Other long term (current) drug therapy; Z90.49 Acquired absence of other specified parts of digestive tract; Z87.891 Personal history of nicotine dependence; Z86.010 Personal history of colon polyps; Z82.49 Family history of ischemic heart disease and other diseases of the circulatory system; Z78.1 Physical restraint status
CPT/HCPCS: 00320; 00790; 31500; 36415; 36600; 43239; 70450; 71010; 71020; 71250; 71275; 74000; 74176; 80048; 80053; 80202; 81001; 82550; 82553; 82565; 82803; 82962; 83605; 83735; 84100; 84132; 84134; 84478; 84484; 85025; 85027; 85610; 85730; 87040; 87070; 87077; 87086; 87186; 87205; 87493; 88305; 88307; 88312; 93005; 93010; 93306; 94002; 94003; 94640; 94660; 94762; 94799; C1751; C9290; G8978-GP; G8979-GP; J0171; J0295; J0330; J0692; J1265; J1335; J1364; J1610; J1650; J1741; J1815; J1940; J2250; J2270; J2310; J2370; J2405; J2543; J2704; J2765; J3010; J3370; J3475; J3480; J3490; J7030; J7040; J7060; J7620; J7685; S0164

== ENCOUNTER 2017-02-09 22:11 | Emergency (ER) | payer MEDICARE, OTHER ==
--- NOTE | 2017-02-09 22:21 | ER Document Report ---
ED General - General Stated Complaint: TRACH ISSUES Time Seen by Provider: 02/09/17 22:13 Mode of Arrival: Ambulatory Information source: Patient Notes: 81 yr old male who had a trach placed 1 month ago due to respiratory difficulty , failure to wean off vent presents from care facility with tube dislodged. Pt has no complaints, denies any difficulty breathing TRAVEL OUTSIDE OF THE [place] IN LAST 30 DAYS: No - HPI Onset: This morning Onset/Duration: Sudden Quality of pain: No pain Severity: None Pain Level: Denies Associated symptoms: None Exacerbated by: Denies Relieved by: Denies Similar symptoms previously: No Recently seen / treated by doctor: No - Related Data Allergies/Adverse Reactions: No Known Allergies Allergy (Verified 12/16/16 11:33) Past Medical History - Social History Smoking Status: Never Smoker Cigarette use (# per day): No Chew tobacco use (# tins/day): No Smoking Education Provided: No Family History: Malignancy - Colon cancer - Past Medical History Cardiac Medical History: Reports: Hx Hypercholesterolemia - ON MEDS, Hx Hypertension - ON MEDS Denies: Hx Atrial Fibrillation, Hx Congestive Heart Failure, Hx Coronary Artery Disease, Hx Heart Attack, Hx Peripheral Vascular Disease, Hx Heart Murmur Pulmonary Medical History: Neurological Medical History: Denies: Hx Seizures Renal/ Medical History: Reports: Hx Benign Prostatic Hyperplasia. Denies: Hx End Stage Renal Disease, Hx Kidney Stones, Hx Peritoneal Dialysis Malignancy Medical History: GI Medical History: Reports: Hx Gastroesophageal Reflux Disease. Denies: Hx Crohn's Disease, Hx Hepatitis, Hx Hiatal Hernia, Hx Irritable Bowel, Hx Liver Failure, Hx Ulcer Musculoskeltal Medical History: Infectious Medical History: Denies: Hx Hepatitis Past Surgical History: Reports: Hx Bowel Surgery, Hx Cardiac Catheterization, Hx Carotid Endarterectomy - Right, Hx Cholecystectomy, Hx Urinary Tract Surgery - prostate, Other - Exploratory laparotomy with total colectomy and splenic biopsy,. Denies: Hx Appendectomy, Hx Colostomy, Hx Coronary Artery Bypass Graft , Hx Gastric Bypass Surgery, Hx Herniorrhaphy, Hx Open Heart Surgery, Hx Pacemaker, Hx Tonsillectomy - Immunizations Hx Diphtheria, Pertussis, Tetanus Vaccination: Yes Hx Pneumococcal Vaccination: 06/12/12 Review of Systems - Review of Systems Notes: REVIEW OF SYSTEMS: CONSTITUTIONAL : Denies fever, chills, or sweats. Denies recent illness. EENT: trach dislodged CARDIOVASCULAR: Denies chest pain. Denies palpitations or racing or irregular heart beat. Denies ankle edema. RESPIRATORY: Denies cough, cold, or chest congestion. Denies shortness of breath, difficulty breathing, or wheezing. GASTROINTESTINAL: Denies abdominal pain or distention. Denies nausea, vomiting , or diarrhea. Denies blood in vomitus, stools, or per rectum. Denies black, tarry stools. Denies constipation. GENITOURINARY: Denies difficulty urinating, painful urination, burning, frequency, blood in urine, or discharge. MUSCULOSKELETAL: Denies back or neck pain or stiffness. Denies joint pain or swelling. SKIN: Denies rash, lesions or sores. HEMATOLOGIC : Denies easy bruising or bleeding. LYMPHATIC: Denies swollen, enlarged glands. NEUROLOGICAL: Denies confusion or altered mental status. Denies passing out or loss of consciousness. Denies dizziness or lightheadedness. Denies headache. Denies weakness or paralysis or loss of use of either side. Denies problems with gait or speech. Denies sensory loss, numbness, or tingling. Denies seizures. PSYCHIATRIC: Denies anxiety or stress. Denies depression, suicidal ideation, or homicidal ideation. ALL OTHER SYSTEMS REVIEWED AND NEGATIVE. Dictation was performed using [employer] voice recognition software PHYSICAL EXAMINATION: GENERAL: elderly male, no distress HEAD: Atraumatic, normocephalic. EYES: Pupils equal round and reactive to light, extraocular movements intact, sclera anicteric, conjunctiva are normal. ENT: Nares patent, oropharynx clear without exudates. Moist mucous membranes. NECK: tracheostomy is dislodged LUNGS: Breath sounds clear to auscultation bilaterally and equal. No wheezes rales or rhonchi. HEART: Regular rate and rhythm without murmurs NEUROLOGICAL: Cranial nerves grossly intact. Normal speech, normal gait. Normal sensory, motor exams PSYCH: Normal mood, normal affect. SKIN: Warm, Dry, normal turgor, no rashes or lesions noted. Physical Exam - Vital signs Vitals: Resp Pulse Ox 10 L 99 02/09/17 22:16 02/09/17 22:16 Course - Re-evaluation Re-evalutation: 02/09/17 22:21 will attempt to replace patients trach 5-0 shiley with respiratory at bed side 02/09/17 22:47 unfortunately we have no 5-0 trachs in the whole hospital. I took the patients that were in place , cleansed it extensively and placed it back in with no complaints After performing a Medical Screening Examination, I estimate there is LOW risk for ACUTE CORONARY SYNDROME, RESPIRATORY FAILURE, SEPSIS OR MENINGITIS, thus I consider the discharge disposition reasonable. I have reevaluated this patient multiple times and no significant life threatening changes are noted. The patient and I have discussed the diagnosis and risks, and we agree with discharging home with close follow-up. We also discussed returning to the Emergency Department immediately if new or worsening symptoms occur. We have discussed the symptoms which are most concerning (e.g., changing or worsening pain, trouble swallowing or breathing, neck stiffness, fever) that necessitate immediate return. - Vital Signs Vital signs: Temp Pulse Resp BP Pulse Ox 98.3 F 16 123/60 99 02/09/17 22:17 02/09/17 22:17 02/09/17 22:17 02/09/17 22:17 Procedures - Additional Procedures trach placement Time performed: 22:48 - 5-0 shiley placed with no diffiuclty Discharge - Discharge Clinical Impression: Encounter for tracheostomy tube change Condition: Stable Disposition: HOME, SELF-CARE Additional Instructions: Follow up with your physician tomorrow for further care or return to the ED IMMEDIATELY if symptoms worsen or new concerns occur. If you cannot afford to follow up with your primary care physician a list of low cost clinics have been provided at the end of your discharge papers as well.
[2017-02-09 23:49] VITALS: BP 125/62
== END 2017-02-09 23:30 | disposition home or self-care (01) ==
LOC: ER 22:11
DX: Z43.0 Encounter for attention to tracheostomy (principal); J95.00 Unspecified tracheostomy complication; R06.00 Dyspnea, unspecified
CPT/HCPCS: 99284

== ENCOUNTER 2017-02-13 07:28 | Emergency (ER) | payer MEDICARE, OTHER ==
[2017-02-13 07:37] VITALS: BP 108/45
--- NOTE | 2017-02-13 08:08 | ER Document Report ---
ED General - General Chief Complaint: Sore Throat Stated Complaint: THROAT PAIN TRAVEL OUTSIDE OF THE [place] IN LAST 30 DAYS: No - HPI Patient complains to provider of: Trach dislodgment Notes: Patient coming in for evaluation after his [facility] today. Upon my evaluation patient is in no obvious respiratory distress. Patient is talking normal voice. Vital signs are stable. Upon asking the patient why he had the trachea and patient states "so I can breathe". No bleeding - Related Data Allergies/Adverse Reactions: No Known Allergies Allergy (Verified 12/16/16 11:33) Past Medical History - Social History Smoking Status: Former Smoker Chew tobacco use (# tins/day): No Frequency of alcohol use: None Drug Abuse: None Family History: Reviewed & Not Pertinent, Malignancy - Colon cancer - Past Medical History Cardiac Medical History: Reports: Hx Congestive Heart Failure, Hx Heart Attack, Hx Hypercholesterolemia - ON MEDS, Hx Hypertension - ON MEDS Denies: Hx Atrial Fibrillation, Hx Coronary Artery Disease, Hx Peripheral Vascular Disease, Hx Heart Murmur Pulmonary Medical History: Neurological Medical History: Denies: Hx Seizures Renal/ Medical History: Reports: Hx Benign Prostatic Hyperplasia. Denies: Hx End Stage Renal Disease, Hx Kidney Stones, Hx Peritoneal Dialysis Malignancy Medical History: GI Medical History: Reports: Hx Gastroesophageal Reflux Disease. Denies: Hx Crohn's Disease, Hx Hepatitis, Hx Hiatal Hernia, Hx Irritable Bowel, Hx Liver Failure, Hx Ulcer Musculoskeltal Medical History: Infectious Medical History: Denies: Hx Hepatitis Past Surgical History: Reports: Hx Bowel Surgery, Hx Cardiac Catheterization, Hx Carotid Endarterectomy - Right, Hx Cholecystectomy, Hx Urinary Tract Surgery - prostate, Other - Exploratory laparotomy with total colectomy and splenic biopsy,. Denies: Hx Appendectomy, Hx Colostomy, Hx Coronary Artery Bypass Graft , Hx Gastric Bypass Surgery, Hx Herniorrhaphy, Hx Open Heart Surgery, Hx Pacemaker, Hx Tonsillectomy - Immunizations Hx Diphtheria, Pertussis, Tetanus Vaccination: Yes Hx Pneumococcal Vaccination: 06/12/12 Review of Systems - Review of Systems Constitutional: No symptoms reported EENT: Other - Trach dislodgment Cardiovascular: No symptoms reported Respiratory: No symptoms reported Gastrointestinal: No symptoms reported Genitourinary: No symptoms reported Male Genitourinary: No symptoms reported Musculoskeletal: No symptoms reported Skin: No symptoms reported Hematologic/Lymphatic: No symptoms reported Neurological/Psychological: No symptoms reported Physical Exam - Vital signs Vitals: Temp Pulse Resp BP Pulse Ox 98.4 F 87 16 108/45 L 100 02/13/17 07:36 02/13/17 07:36 02/13/17 07:36 02/13/17 07:36 02/13/17 07:36 Interpretation: Normal - General General appearance: Appears well, Alert - HEENT Head: Normocephalic, Atraumatic Eyes: Normal Pupils: PERRL Notes: Stoma well-healed midline neck no bleeding - Respiratory Respiratory status: No respiratory distress Chest status: Nontender Breath sounds: Normal Chest palpation: Normal - Cardiovascular Rhythm: Regular Heart sounds: Normal auscultation Murmur: No - Abdominal Inspection: Normal Distension: No distension Bowel sounds: Normal Tenderness: Nontender Organomegaly: No organomegaly - Back Back: Normal, Nontender - Extremities General upper extremity: Normal inspection, Nontender, Normal color, Normal ROM , Normal temperature General lower extremity: Normal inspection, Nontender, Normal color, Normal ROM , Normal temperature, Normal weight bearing. No: Kady's sign - Neurological Neuro grossly intact: Yes Cognition: Normal Orientation: AAOx4 Brian Coma Scale Eye Opening: Spontaneous [place] Coma Scale Verbal: Oriented Brian Coma Scale Motor: Obeys Commands [place] Coma Scale Total: 15 Speech: Normal Motor strength normal: LUE, RUE, LLE, RLE Sensory: Normal - Psychological Associated symptoms: Normal affect, Normal mood - Skin Skin Temperature: Warm Skin Moisture: Dry Skin Color: Normal Course - Re-evaluation Re-evalutation: 02/13/17 14:24 Patient had a 5 oh shaley replaced no obvious complications will discharge home. - Vital Signs Vital signs: Temp Pulse Resp BP Pulse Ox 98.4 F 87 16 108/45 L 100 02/13/17 07:36 02/13/17 07:36 02/13/17 07:36 02/13/17 07:36 02/13/17 07:36 Procedures - Additional Procedures Trach replacement Notes: 02/13/17 14:25 Cuffless was trach 5 oh Shiley was replaced without difficulty Discharge - Discharge Clinical Impression: Encounter for tracheostomy tube change Condition: Good Disposition: HOME-SNF (ED ONLY) Additional Instructions: Patient presents for tracheostomy dysfunction. A 5 o Shiley was replaced. In the box with the patient are all the other inner cannulas for the trach. Have patient follow-up as needed.
== END 2017-02-13 08:50 ==
LOC: ER 07:28
DX: Z43.0 Encounter for attention to tracheostomy (principal); I10 Essential (primary) hypertension; I25.2 Old myocardial infarction; Z87.891 Personal history of nicotine dependence
CPT/HCPCS: 99284

== ENCOUNTER 2017-02-14 04:16 | Emergency (ER) | payer MEDICARE, OTHER ==
--- NOTE | 2017-02-14 05:01 | ER Document Report ---
ED General - General Chief Complaint: Other Stated Complaint: OTHER Time Seen by Provider: 02/14/17 04:40 Notes: Patient is an 81-year-old male who presents for the third time in less than a week for tracheostomy tube placement. He was seen less than 24 hours ago for the same. He is unable to explain why the tracheostomy tube is again come out. He arrives without any additional complaints and no apparent difficulty breathing. He is uncertain of why he continues to need a tracheostomy tube despite the fact that he can clearly breathe without difficulty with a tracheostomy tube is not in place. TRAVEL OUTSIDE OF THE [place] IN LAST 30 DAYS: No - Related Data Allergies/Adverse Reactions: No Known Allergies Allergy (Verified 12/16/16 11:33) Past Medical History - General Information source: Patient - Social History Smoking Status: Former Smoker Frequency of alcohol use: None Drug Abuse: None Lives with: Long Term Family History: Reviewed & Not Pertinent, Malignancy - Colon cancer - Past Medical History Cardiac Medical History: Reports: Hx Congestive Heart Failure, Hx Heart Attack, Hx Hypercholesterolemia - ON MEDS, Hx Hypertension - ON MEDS Denies: Hx Atrial Fibrillation, Hx Coronary Artery Disease, Hx Peripheral Vascular Disease, Hx Heart Murmur Pulmonary Medical History: Neurological Medical History: Denies: Hx Seizures Renal/ Medical History: Reports: Hx Benign Prostatic Hyperplasia. Denies: Hx End Stage Renal Disease, Hx Kidney Stones, Hx Peritoneal Dialysis Malignancy Medical History: GI Medical History: Reports: Hx Gastroesophageal Reflux Disease. Denies: Hx Crohn's Disease, Hx Hepatitis, Hx Hiatal Hernia, Hx Irritable Bowel, Hx Liver Failure, Hx Ulcer Musculoskeltal Medical History: Infectious Medical History: Denies: Hx Hepatitis Past Surgical History: Reports: Hx Bowel Surgery, Hx Cardiac Catheterization, Hx Carotid Endarterectomy - Right, Hx Cholecystectomy, Hx Urinary Tract Surgery - prostate, Other - Exploratory laparotomy with total colectomy and splenic biopsy,. Denies: Hx Appendectomy, Hx Colostomy, Hx Coronary Artery Bypass Graft , Hx Gastric Bypass Surgery, Hx Herniorrhaphy, Hx Open Heart Surgery, Hx Pacemaker, Hx Tonsillectomy - Immunizations Hx Diphtheria, Pertussis, Tetanus Vaccination: Yes Hx Pneumococcal Vaccination: 06/12/12 Review of Systems - Review of Systems Notes: Constitutional: Negative for fever. HENT: Negative for sore throat. Eyes: Negative for visual changes. Cardiovascular: Negative for chest pain. Respiratory: Negative for shortness of breath. Gastrointestinal: Negative for abdominal pain, vomiting or diarrhea. Genitourinary: Negative for dysuria. Musculoskeletal: Negative for back pain. Skin: Negative for rash. Neurological: Negative for headaches, weakness or numbness. 10 point ROS negative except as marked above and in HPI. Physical Exam - Vital signs Vitals: Temp Pulse Resp BP Pulse Ox 97.8 F 77 18 98/45 L 100 02/14/17 04:24 02/14/17 04:24 02/14/17 04:24 02/14/17 04:24 02/14/17 04:24 Interpretation: Normal Notes: PHYSICAL EXAMINATION: GENERAL: Well-appearing, well-nourished and in no acute distress. HEAD: Atraumatic, normocephalic. EYES: sclera anicteric, conjunctiva are normal. ENT: Moist mucous membranes. Tracheostomy site without any evidence of trauma or bleeding. NECK: Normal range of motion LUNGS: Coarse breath sounds bilaterally. No respiratory distress. HEART: 2+ radial pulses bilaterally EXTREMITIES: no pitting or edema. No cyanosis. NEUROLOGICAL: No focal neurological deficits. Moves all extremities spontaneously and on command. PSYCH: Normal mood, normal affect. SKIN: Warm, Dry, normal turgor, no rashes or lesions noted. Course - Re-evaluation Re-evalutation: 02/14/17 05:01 Patient presents again for tracheostomy tube placement. We are working to try to find a 5-0 uncuffed tube for placement. 02/14/17 05:42 Tracheostomy tube has been replaced. - Vital Signs Vital signs: Temp Pulse Resp BP Pulse Ox 97.8 F 77 18 98/45 L 100 02/14/17 04:24 02/14/17 04:24 02/14/17 04:24 02/14/17 04:24 02/14/17 04:24 Discharge - Discharge Clinical Impression: Tracheostomy care Condition: Good Disposition: HOME, SELF-CARE
[2017-02-14 06:30] VITALS: BP 102/59
== END 2017-02-14 06:28 | disposition home or self-care (01) ==
LOC: ER 04:16
DX: Z43.0 Encounter for attention to tracheostomy (principal); E78.00 Pure hypercholesterolemia, unspecified; I50.9 Heart failure, unspecified; I11.0 Hypertensive heart disease with heart failure; Z90.49 Acquired absence of other specified parts of digestive tract; Z87.891 Personal history of nicotine dependence; I25.2 Old myocardial infarction
CPT/HCPCS: 99283

== ENCOUNTER 2017-02-14 11:12 | Emergency (ER) | payer MEDICARE, OTHER ==
[2017-02-14 11:18] VITALS: BP 115/55
--- NOTE | 2017-02-14 11:29 | ER Document Report ---
ED General - General Chief Complaint: Other Stated Complaint: TRACH CONCERN Time Seen by Provider: 02/14/17 11:18 TRAVEL OUTSIDE OF THE [place] IN LAST 30 DAYS: No - HPI Notes: Patient is an 81-year-old male who presents the ED for the second time this morning for his trach tube coming out again. Patient states that he is not sure how it came out, but he has no other concerns or complaints and is breathing just fine without any difficulties. Patient has been seen 3 other times for 2 replacement recently. This morning they were unable to find a replacement inner cannula. He denies any bleeding or issues with the tracheostomy site. Denies any headache, fever, head injury, neck pain, chest pain, palpitations, syncope, cough, shortness of breath, wheeze, dyspnea, abdominal pain, nausea/vomiting/diarrhea, or rash. - Related Data Allergies/Adverse Reactions: No Known Allergies Allergy (Verified 12/16/16 11:33) Past Medical History - Social History Smoking Status: Unknown if Ever Smoked Family History: Reviewed & Not Pertinent, Malignancy - Colon cancer - Past Medical History Cardiac Medical History: Reports: Hx Congestive Heart Failure, Hx Heart Attack, Hx Hypercholesterolemia - ON MEDS, Hx Hypertension - ON MEDS Denies: Hx Atrial Fibrillation, Hx Coronary Artery Disease, Hx Peripheral Vascular Disease, Hx Heart Murmur Pulmonary Medical History: Neurological Medical History: Denies: Hx Seizures Renal/ Medical History: Reports: Hx Benign Prostatic Hyperplasia. Denies: Hx End Stage Renal Disease, Hx Kidney Stones, Hx Peritoneal Dialysis Malignancy Medical History: GI Medical History: Reports: Hx Gastroesophageal Reflux Disease. Denies: Hx Crohn's Disease, Hx Hepatitis, Hx Hiatal Hernia, Hx Irritable Bowel, Hx Liver Failure, Hx Ulcer Musculoskeltal Medical History: Infectious Medical History: Denies: Hx Hepatitis Past Surgical History: Reports: Hx Bowel Surgery, Hx Cardiac Catheterization, Hx Carotid Endarterectomy - Right, Hx Cholecystectomy, Hx Urinary Tract Surgery - prostate, Other - Exploratory laparotomy with total colectomy and splenic biopsy,. Denies: Hx Appendectomy, Hx Colostomy, Hx Coronary Artery Bypass Graft , Hx Gastric Bypass Surgery, Hx Herniorrhaphy, Hx Open Heart Surgery, Hx Pacemaker, Hx Tonsillectomy - Immunizations Hx Diphtheria, Pertussis, Tetanus Vaccination: Yes Hx Pneumococcal Vaccination: 06/12/12 Review of Systems - Review of Systems Notes: REVIEW OF SYSTEMS: CONSTITUTIONAL : Denies fever, chills, or sweats. Denies recent illness. EENT: see hpi. abdominal painDenies eye, ear, throat, or mouth pain or symptoms. Denies nasal or sinus congestion or discharge. Denies throat, tongue , or mouth swelling or difficulty swallowing. CARDIOVASCULAR: Denies chest pain. Denies palpitations or racing or irregular heart beat. Denies ankle edema. RESPIRATORY: Denies cough, cold, or chest congestion. Denies shortness of breath, difficulty breathing, or wheezing. GASTROINTESTINAL: Denies abdominal pain or distention. Denies nausea, vomiting , or diarrhea. Denies blood in vomitus, stools, or per rectum. Denies black, tarry stools. Denies constipation. GENITOURINARY: Denies difficulty urinating, painful urination, burning, frequency, blood in urine, or discharge. MUSCULOSKELETAL: Denies back or neck pain or stiffness. Denies joint pain or swelling. SKIN: see hpi NEUROLOGICAL: Denies confusion or altered mental status. Denies passing out or loss of consciousness. Denies dizziness or lightheadedness. Denies headache. Denies weakness or paralysis or loss of use of either side. Denies problems with gait or speech. Denies sensory loss, numbness, or tingling. ALL OTHER SYSTEMS REVIEWED AND NEGATIVE. Dictation was performed using [email or web address] voice recognition software 67-year-old Physical Exam - Vital signs Vitals: Temp Pulse Resp BP Pulse Ox 97.6 F 85 18 115/55 L 99 02/14/17 11:17 02/14/17 11:17 02/14/17 11:17 02/14/17 11:17 02/14/17 11:17 Notes: PHYSICAL EXAMINATION: GENERAL: Well-appearing, well-nourished and in no acute distress. Pt breathing w/o difficulty even with trach tube out. HEAD: Atraumatic, normocephalic. EYES: Pupils equal round and reactive to light, extraocular movements intact, sclera anicteric, conjunctiva are normal. ENT: Nares patent and without discharge. oropharynx clear without exudates. No tonsilar hypertrophy or erythema. Moist mucous membranes. No sinus tenderness. NECK: Normal range of motion, supple without lymphadenopathy. No rigidity/ meningismus. Tracheostomy visualized and no discharge/bleeding/erythema noted. Non-tender. LUNGS: Breath sounds clear to auscultation bilaterally and equal. No wheezes rales or rhonchi. HEART: Regular rate and rhythm without murmurs, rubs, gallops. NEUROLOGICAL: Cranial nerves grossly intact. Normal speech, normal gait. Normal sensory, motor exams PSYCH: Normal mood, normal affect. SKIN: Warm, Dry, normal turgor, no rashes or lesions noted. see neck exam. Course - Re-evaluation Re-evalutation: 02/14/17 12:36 Patient is an afebrile, well-hydrated, 81-year-old male who presents the ED for tracheostomy tube reinsertion. Vitals are stable. PE otherwise unremarkable at this time. Patient is breathing without any difficulties. A new tracheostomy tube was replaced with the same size 4 uncuffed equipment that was in place originally. Advised patient that he will need follow-up with an ear nose and throat provider for further evaluation and management. Recheck with your PCM this week as well. Return to the ED with any worsening/concerning symptoms otherwise as reviewed discharge. Patient is in agreement. - Vital Signs Vital signs: Temp Pulse Resp BP Pulse Ox 97.6 F 85 18 115/55 L 99 02/14/17 11:17 02/14/17 11:17 02/14/17 11:17 02/14/17 11:17 02/14/17 11:17 Procedures - Additional Procedures tracheostomy tube replacement Time performed: 12:30 Additional Procedures: Other - tracheostomy tube replacement. no complications. pt tolerated procedure well. Discharge - Discharge Clinical Impression: Encounter for tracheostomy tube change Condition: Stable Disposition: HOME, SELF-CARE Additional Instructions: Keep the skin clean wash with soap and water Make sure that your tracheostomy tube is fastened securely Do not perform any strenuous head movements that may result in the tracheostomy tubing pulled out again Schedule an appointment with ENT for further evaluation and management Recheck with your PCM this week as well Return to the ED with any worsening symptoms and/or development of fever, headache, chest pain, palpitations, syncope, shortness of breath, trouble breathing, abdominal pain, n/v/d, blood in stool/urine, or other worsening symptoms that are concerning to you. Referrals: ANJALI MIRANDA MD [[facility]] - 02/15/17
== END 2017-02-14 13:40 | disposition home or self-care (01) ==
LOC: ER 11:12
DX: Z43.0 Encounter for attention to tracheostomy (principal); I50.9 Heart failure, unspecified; E78.00 Pure hypercholesterolemia, unspecified; I11.0 Hypertensive heart disease with heart failure; I25.2 Old myocardial infarction
CPT/HCPCS: 99283

== ENCOUNTER 2017-02-18 04:19 | Inpatient (IN) | payer MEDICARE, OTHER ==
--- NOTE | 2017-02-18 05:13 | ER Document Report ---
Doctor's Note Notes: 02/18/17 05:12 I performed a quick triage evaluation of the patient. Patient is an 81-year- old male who presents with complaints of pain in his abdomen whenever they do his tube feedings. He is also had some vomiting. He says his tube feedings have not been working appropriately or flowing well as of recently. He sent here because the symptoms. He currently does not have pain right now. He has some nausea says he still has some vomiting. He denies any fevers. He does have a colostomy bag over right lower quadrant. Output appears to be adequate. I do not see any blood in the colostomy bag. He has no pain to palpation of his abdomen. I did flush the feeding tube with saline. It flushed easily and had no pain when I flushed it. I will order baseline blood work. I will order an x-ray of his abdomen chest. Patient is currently well-appearing with no distress. Dictation of this chart was performed using voice recognition software; therefore, there may be some unintended grammatical errors.
[2017-02-18 05:42] LABS: ABSOLUTE EOSINOPHILS # (AUTO) 0.1 10^3/uL (0.0-0.6); ABSOLUTE LYMPHOCYTES (AUTO) 1.8 10^3/uL (0.5-4.7); ABSOLUTE MONOCYTES (AUTO) 0.6 10^3/uL (0.1-1.4); BASOPHILS % (AUTO) 0.2 % (0-2); EOSINOPHILS % (AUTO) 0.9 % (0-6); HEMATOCRIT 35.8 % (37.9-51.0); HGB HCT DIFFERENCE 0.2; MEAN CORPUSCULAR HEMOGLOBIN 31.2 pg (27.0-33.4); MEAN CORPUSCULAR HGB CONC 33.6 g/dL (32.0-36.0); MEAN CORPUSCULAR VOLUME 93 fl (80-97); MONOCYTES % (AUTO) 7.2 % (3-13); RED BLOOD COUNT 3.86 10^6/uL (4.35-5.55); RED CELL DISTRIBUTION WIDTH 16.7 % (11.5-14.0); SEGMENTED NEUTROPHILS % (AUTO) 70.7 % (42-78); WHITE BLOOD COUNT 8.5 10^3/uL (4.0-10.5)
--- NOTE | 2017-02-18 06:23 | RADIOLOGY REPORT (SQ) ---
EXAM DESCRIPTION: ACUTE ABDOMEN SERIES COMPLETED DATE/TIME: 02/18/2017 6:05 am REASON FOR STUDY: abdominal pain COMPARISON: Chest x-ray 01/11/2017, KUB 01/06/2017. CT abdomen and pelvis 01/03/2017. NUMBER OF VIEWS: Three views. TECHNIQUE: Frontal chest, supine abdomen and upright/decubitus abdomen radiographic images acquired. LIMITATIONS: None. FINDINGS: CHEST: Lungs clear of infiltrates. A tracheostomy tube is noted. FREE AIR: None. BOWEL GAS PATTERN: Nonobstructive pattern. No dilated loops or air fluid levels. CALCIFICATIONS: No suspicious calcifications. HARDWARE: There is a right lower quadrant ostomy. A gastric tube is seen at the stomach. Surgical c lips in the right upper quadrant. SOFT TISSUES: No gross mass or suggestion of organomegaly. BONES: Degenerative changes in the spine. IMPRESSION: Nonobstructive bowel gas pattern. TECHNICAL DOCUMENTATION: JOB ID: [id number] 2010 [employer]- All Rights Reserved
[2017-02-18 07:07] LABS: ALANINE AMINOTRANSFERASE 37 U/L (21-72); ALBUMIN 3.2 g/dL (3.5-5.0); ALKALINE PHOSPHATASE 112 U/L (38-126); ANION GAP 7 (5-19); ASPARTATE AMINO TRANSFERASE 21 U/L (17-59); BILIRUBIN,DIRECT 0.3 mg/dL (0.0-0.4); BILIRUBIN,TOTAL 0.3 mg/dL (0.2-1.3); BLOOD UREA NITROGEN 107 mg/dL (7-20); CALCIUM 10.4 mg/dL (8.4-10.2); CARBON DIOXIDE 23 mmol/L (22-30); CHLORIDE 102 mmol/L (98-107); CREATININE RESULT 2.95 mg/dL (0.52-1.25); GLUCOSE 114 mg/dL (75-110); LIPASE 823.4 U/L (23-300); SODIUM 132.4 mmol/L (137-145)
[2017-02-18 07:09] LABS: POTASSIUM 7.5 mmol/L (3.6-5.0)
[2017-02-18] MEDS ORDERED: NORMAL SALINE 1000 ML 1,000 ML IV ONE ×4 (07:10→11:50)
[2017-02-18] MEDS ORDERED: DEXTROSE 50%-WATER 25 GM/50 ML DISP.SYRIN IV ONE ×2 (07:11→16:24)
[2017-02-18] MEDS ORDERED: SODIUM POLYSTYRENE SULFONATE 15 GM/60 ML GT ONE (07:11)
[2017-02-18] MEDS ORDERED: CALCIUM GLUCONATE 1000 MG/10 ML INJ IV ONE ×3 (07:11→16:18)
[2017-02-18] MEDS ORDERED: INSULIN REG, HUMAN 100 UNIT/ML 3 ML VIAL (PYX) IV ONE ×2 (07:11→16:25)
[2017-02-18] MEDS ORDERED: ALBUTEROL SULFATE 0.083% NEB 2.5 MG/3 ML AMPUL NEB ONE ×2 (07:23→11:50)
[2017-02-18] MEDS ORDERED: ONDANSETRON HCL INJ/PF 4 MG/2 ML SDV IV ONE (07:26)
[2017-02-18 10:18] LABS: ANION GAP 8 (5-19); BLOOD UREA NITROGEN 92 mg/dL (7-20); CALCIUM 9.8 mg/dL (8.4-10.2); CARBON DIOXIDE 20 mmol/L (22-30); CHLORIDE 105 mmol/L (98-107); CREATININE RESULT 2.68 mg/dL (0.52-1.25); GLUCOSE 97 mg/dL (75-110); SODIUM 132.9 mmol/L (137-145)
[2017-02-18 10:25] LABS: AMORPHOUS SEDIMENT,URINE TRACE /HPF; APPEARANCE,URINE SLIGHTLY-CLOUDY; BILIRUBIN,URINE NEGATIVE (NEGATIVE); GLUCOSE, URINE NEGATIVE (NEGATIVE); KETONES,URINE NEGATIVE (NEGATIVE); LEUKOCYTE ESTERASE,URINE NEGATIVE (NEGATIVE); NITRITE,URINE NEGATIVE (NEGATIVE); PROTEIN,URINE NEGATIVE (NEGATIVE); URINE SPECIFIC GRAVITY 1.009; UROBILINOGEN,URINE NEGATIVE mg/dL (<2.0)
[2017-02-18 10:25] LABS: POTASSIUM 6.9 mmol/L (3.6-5.0)
[2017-02-18] MEDS ORDERED: SODIUM BICARBONATE 8.4% INJ 50 MEQ/50 ML DISP.SYRIN IV ONE (10:32)
--- NOTE | 2017-02-18 11:24 | RADIOLOGY REPORT (SQ) ---
EXAM DESCRIPTION: CT ABD/PELVIS ORAL ONLY COMPLETED DATE/TIME: 02/18/2017 11:08 am REASON FOR STUDY: eval sbo contrast thru feeding tube plz COMPARISON: 01/03/2017. 02/18/2017 radiographs. TECHNIQUE: CT scan of the abdomen and pelvis performed with oral contrast and no intravenous contras t. Images reviewed with lung, soft tissue, and bone windows. Reconstructed coronal and sagittal MPR i mages reviewed. All images stored on PACS. All CT scanners at this facility use dose modulation, iterative reconstruction, and/or weight based d osing when appropriate to reduce radiation dose to as low as reasonably achievable (ALARA). [facility]: Dose Right [facility]: CareDose [facility]: Dose Right [facility]: Teradose 4D [facility]: [employer] RADIATION DOSE: Up-to-date CT equipment and radiation dose reduction techniques were employed. CTDIv ol: 6.8 mGy. DLP: 389 mGy-cm.mGy. LIMITATIONS: None. FINDINGS: LOWER CHEST: No significant findings. No nodules or infiltrates. NON-CONTRASTED LIVER, SPLEEN, ADRENALS: Numerous liver cysts. No gross spleen or adrenal mass. PANCREAS: No masses. No peripancreatic inflammatory changes. GALLBLADDER: Surgically absent. RIGHT KIDNEY AND URETER: Cysts without obstruction or stones evident. LEFT KIDNEY AND URETER: No stones or obstruction evident. AORTA AND RETROPERITONEUM: Dense aortic calcification without aneurysm. BOWEL AND PERITONEAL CAVITY: G-tube in place. No dilated loops appreciated. Contrast flows througho ut small bowel loops and into right lower quadrant ileostomy. Prior colectomy. Fluid distended rect um. No free air or ascites. APPENDIX: Surgically absent. PELVIS, BLADDER, AND ABDOMINAL WALL: Urinary bladder contains a Ames catheter. Mild persistent flui d within. Prostate enlarged. No pelvic mass or free fluid. No abdominal wall hernia. BONES: Osteopenic. OTHER: No other significant finding. IMPRESSION: 1. No evidence of small bowel obstruction. Postoperative changes include G-tube and col ectomy. Ascites no longer appreciated. TECHNICAL DOCUMENTATION: JOB ID: [id number] Quality ID # [id number]: Final reports with documentation of one or more dose reduction techniques (e.g., Au tomated exposure control, adjustment of the mA and/or kV according to patient size, use of iterative reconstruction technique) 2010 [employer]- All Rights Reserved
--- NOTE | 2017-02-18 11:49 | ER Document Report ---
ED General - General Chief Complaint: Abdominal Pain Stated Complaint: ABDOMINAL PAIN Time Seen by Provider: 02/18/17 05:04 TRAVEL OUTSIDE OF THE [place] 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 Patient has been complaining of some nausea vomiting outpatient KUB was performed showing ileus. Prior to my evaluation the nighttime ER doctor did instilled normal saline into the feeding tube without difficulty. Upon my evaluation patient otherwise states no complaints states still having mild abdominal pain. And just the generalized feeling of unwell. Vital signs are otherwise are stable patient does not look to be in any obvious distress. - Related Data Allergies/Adverse Reactions: No Known Allergies Allergy (Verified 12/16/16 11:33) Home Medications: Current Home Medications Amlodipine Besylate [Norvasc 5 mg Tablet] 5 mg PO QHS 02/18/17 [History] Docusate Sodium [Colace 100 mg Capsule] 100 mg PO Q12 02/18/17 [History] Lisinopril [Zestril] 20 mg PO DAILY 02/18/17 [History] Multivitamin/Iron/Folic Acid [Centrum Adults Tablet] 1 tab PO DAILY 02/18/17 [ History] Pantoprazole Sodium [Protonix] 40 mg PO DAILY 02/18/17 [History] Pravastatin Sodium [Pravachol] 40 mg PO DAILY 02/18/17 [History] Tolterodine Tartrate [Detrol La] 4 mg PO QHS 02/18/17 [History] Past Medical History - Social History Smoking Status: Unknown if Ever Smoked Family History: Reviewed & Not Pertinent, Malignancy - Colon cancer - Past Medical History Cardiac Medical History: Reports: Hx Congestive Heart Failure, Hx Heart Attack, Hx Hypercholesterolemia - ON MEDS, Hx Hypertension - ON MEDS Denies: Hx Atrial Fibrillation, Hx Coronary Artery Disease, Hx Peripheral Vascular Disease, Hx Heart Murmur Pulmonary Medical History: Neurological Medical History: Denies: Hx Seizures Renal/ Medical History: Reports: Hx Benign Prostatic Hyperplasia. Denies: Hx End Stage Renal Disease, Hx Kidney Stones, Hx Peritoneal Dialysis Malignancy Medical History: GI Medical History: Reports: Hx Gastroesophageal Reflux Disease. Denies: Hx Crohn's Disease, Hx Hepatitis, Hx Hiatal Hernia, Hx Irritable Bowel, Hx Liver Failure, Hx Ulcer Musculoskeltal Medical History: Infectious Medical History: Denies: Hx Hepatitis Past Surgical History: Reports: Hx Abdominal Surgery - ileostomy placement, Hx Bowel Surgery, Hx Cardiac Catheterization, Hx Carotid Endarterectomy - Right, Hx Cholecystectomy, Hx Urinary Tract Surgery - prostate, Other - Exploratory laparotomy with total colectomy and splenic biopsy,. Denies: Hx Appendectomy, Hx Colostomy, Hx Coronary Artery Bypass Graft, Hx Gastric Bypass Surgery, Hx Herniorrhaphy, Hx Open Heart Surgery, Hx Pacemaker, Hx Tonsillectomy - Immunizations Hx Diphtheria, Pertussis, Tetanus Vaccination: Yes Hx Pneumococcal Vaccination: 06/12/12 Review of Systems - Review of Systems Constitutional: No symptoms reported EENT: No symptoms reported Cardiovascular: No symptoms reported Respiratory: No symptoms reported Gastrointestinal: Abdominal pain, Nausea, Vomiting Genitourinary: No symptoms reported Male Genitourinary: No symptoms reported Musculoskeletal: No symptoms reported Skin: No symptoms reported Hematologic/Lymphatic: No symptoms reported Neurological/Psychological: No symptoms reported -: Yes All other systems reviewed and negative Physical Exam - Vital signs Vitals: Temp Pulse BP Pulse Ox 97.9 F 87 112/43 L 99 02/18/17 04:26 02/18/17 04:26 02/18/17 04:26 02/18/17 04:26 Interpretation: Normal - General General appearance: Appears well, Alert - HEENT Head: Normocephalic, Atraumatic Eyes: Normal Pupils: PERRL Notes: Trach in place with no signs of bleeding around tracheostomy site no signs of infection - Respiratory Respiratory status: No respiratory distress Chest status: Nontender Breath sounds: Normal Chest palpation: Normal - Cardiovascular Rhythm: Regular Heart sounds: Normal auscultation Murmur: No - Abdominal Inspection: No: Normal - Feeding tube in place with no signs of infection around the ostomy site. Patient also has a ileostomy with good output stoma looks pink through the bag no signs of any worrisome features. Distension: No distension Bowel sounds: Normal Tenderness: Nontender Organomegaly: No organomegaly - Back Back: Normal, Nontender - Extremities General upper extremity: Normal inspection, Nontender, Normal color, Normal ROM , Normal temperature General lower extremity: Normal inspection, Nontender, Normal color, Normal ROM , Normal temperature, Normal weight bearing. No: Kady's sign - Neurological Neuro grossly intact: Yes Cognition: Normal Orientation: AAOx4 Perkins Coma Scale Eye Opening: Spontaneous Brian Coma Scale Verbal: Oriented Perkins Coma Scale Motor: Obeys Commands Brian Coma Scale Total: 15 Speech: Normal Motor strength normal: LUE, RUE, LLE, RLE Sensory: Normal - Psychological Associated symptoms: Normal affect, Normal mood - Skin Skin Temperature: Warm Skin Moisture: Dry Skin Color: Normal Course - Re-evaluation Re-evalutation: 02/18/17 13:50 Laboratory studies show potassium at >7 was notified of this EKG was performed showing peaked T waves. Patient received insulin calcium dextrose and albuterol also will give the patient 15 g of Kayexalate. Because of the patient 's complaints of abdominal pain with a history of nausea vomiting with ileus no weight gain patient admitted was due to CT with oral contrast. This was performed showing no signs of small bowel obstruction. Patient had a repeat BMP showing decrease in his potassium to 6.9. EKG was repeated is still showing peaked T waves however they have improved. Discussed with PCP felt like more likely the patient's acute renal failure and hyperkalemia is due to dehydration. PCP agrees will admit to the telemetry unit with Félix admitting - Vital Signs Vital signs: Temp Pulse Resp BP Pulse Ox 97.9 F 87 15 113/53 L 100 02/18/17 04:26 02/18/17 04:26 02/18/17 13:01 02/18/17 13:00 02/18/17 13:01 - Laboratory Result Diagrams: 02/18/17 05:34 02/18/17 09:40 Laboratory results interpreted by me: 02/18/17 02/18/17 02/18/17 05:34 06:34 09:40 RBC 3.86 L Hgb 12.0 L Hct 35.8 L RDW 16.7 H Sodium 132.4 L 132.9 L Potassium 7.5 H* 6.9 H* Carbon Dioxide 20 L BUN 107 H 92 H Creatinine 2.95 H 2.68 H Est GFR ( Amer) 25 L 28 L Est GFR (Non-Af Amer) 21 L 23 L Glucose 114 H Calcium 10.4 H Total Protein 6.0 L Albumin 3.2 L Lipase 823.4 H Urine Ascorbic Acid 02/18/17 10:05 RBC Hgb Hct RDW Sodium Potassium Carbon Dioxide BUN Creatinine Est GFR ( Amer) Est GFR (Non-Af Amer) Glucose Calcium Total Protein Albumin Lipase Urine Ascorbic Acid 40 H Critical Care Note - Critical Care Note Total time excluding time spent on procedures (mins): 40 Comments: Multiple evaluations for critical lab findings Discharge - Discharge Clinical Impression: Hyperkalemia, Dehydration Acute renal failure Qualifiers: Acute renal failure type: unspecified Qualified Code(s): N17.9 - Acute kidney failure, unspecified Condition: Good Disposition: ADMITTED INPATIENT Admitting [facility] Admitted: Telemetry
[2017-02-18] MEDS ORDERED: NORMAL SALINE 1000 ML 1,000 ML IV PRN (14:47)
[2017-02-18] MEDS ORDERED: (PENDING PHARMACY ID) (Multivitamin/Iron/Folic Acid [Centrum Adults Tablet] 1 TAB) PO SCH (15:00)
[2017-02-18] MEDS ORDERED: (PENDING PHARMACY ID) (Pravastatin Sodium [Pravachol] 40 MG) PO SCH (15:00)
[2017-02-18 15:50] LABS: PROTHROMBIN TIME 13.4 SEC (11.4-15.4)
[2017-02-18 15:51] LABS: PARTIAL THROMBOPLASTIN TIME 27.5 SEC (23.5-35.8)
[2017-02-18 15:57] LABS: THYROID STIMULATING HORMONE 1.04 uIU/mL (0.47-4.68)
[2017-02-18 15:59] LABS: ALANINE AMINOTRANSFERASE 32 U/L (21-72); ALBUMIN 2.7 g/dL (3.5-5.0); ALKALINE PHOSPHATASE 90 U/L (38-126); ANION GAP 6 (5-19); ASPARTATE AMINO TRANSFERASE 16 U/L (17-59); BILIRUBIN,DIRECT 0.2 mg/dL (0.0-0.4); BILIRUBIN,TOTAL 0.3 mg/dL (0.2-1.3); BLOOD UREA NITROGEN 81 mg/dL (7-20); CALCIUM 9.8 mg/dL (8.4-10.2); CARBON DIOXIDE 23 mmol/L (22-30); CHLORIDE 107 mmol/L (98-107); CREATININE RESULT 2.41 mg/dL (0.52-1.25); GLUCOSE 96 mg/dL (75-110); PHOSPHORUS 4.7 mg/dL (2.5-4.5); SODIUM 136.2 mmol/L (137-145); TOTAL PROTEIN 5.2 g/dL (6.3-8.2)
[2017-02-18 16:00] LABS: POTASSIUM 6.8 mmol/L (3.6-5.0)
[2017-02-18] MEDS ORDERED: LANSOPRAZOLE 30 MG TAB.RAP.DR PO ONE (16:00)
[2017-02-18] MEDS ORDERED: PRENATAL VITAMIN W-O CA NO5/FE FUMARATE/FA CAPSULE PO ONE (16:00)
[2017-02-18] MEDS ORDERED: DEXTROSE 50%-WATER 25 GM/50 ML DISP.SYRIN IV PRN ×2 (16:27)
[2017-02-18] MEDS ORDERED: DEXTROSE 40% GEL 15 GM TUBE PO PRN ×2 (16:27)
[2017-02-18] MEDS ORDERED: GLUCAGON,HUMAN RECOMB 1 MG INJ IM PRN (16:27)
[2017-02-18 20:08] LABS: ANION GAP 7 (5-19); BLOOD UREA NITROGEN 80 mg/dL (7-20); CARBON DIOXIDE 22 mmol/L (22-30); CHLORIDE 108 mmol/L (98-107); CREATININE RESULT 2.26 mg/dL (0.52-1.25); GLUCOSE 69 mg/dL (75-110); SODIUM 137.1 mmol/L (137-145)
[2017-02-18 20:14] LABS: POTASSIUM 6.6 mmol/L (3.6-5.0)
--- NOTE | 2017-02-18 20:24 | EKG REPORT ---
SEVERITY:- BORDERLINE ECG - SINUS RHYTHM PROBABLE LEFT ATRIAL ABNORMALITY : Confirmed by: Larry Barker MD 18-Feb-2017 20:24:08
--- NOTE | 2017-02-18 20:24 | EKG REPORT ---
SEVERITY:- NORMAL ECG - SINUS RHYTHM : Confirmed by: Larry Barker MD 18-Feb-2017 20:23:45
[2017-02-18] MEDS ORDERED: (PENDING PHARMACY ID) (Tolterodine Tartrate [Detrol La] 4 MG) PO SCH (22:00)
[2017-02-18] MEDS: ATORVASTATIN CALCIUM 10 MG TABLET PO SCH (22:27)
[2017-02-18] MEDS: AMLODIPINE BESYLATE 5 MG TABLET PO SCH (22:27)
[2017-02-18] MEDS: HEPARIN SOD (PORCINE) 5,000 UNIT/ML 1 ML SYRINGE SUBCUT SCH (22:27)
[2017-02-18] MEDS: ALPRAZOLAM 0.25 MG TABLET PO PRN (22:28)
[2017-02-18] MEDS: TOLTERODINE TARTRATE 1 MG TABLET PO SCH (22:28)
[2017-02-18] MEDS ORDERED: SODIUM POLYSTYRENE SULFONATE 15 GM/60 ML PO ONE (22:45)
[2017-02-18] MEDS ORDERED: SODIUM POLYSTYRENE SULFONATE 15 GM/60 ML PO SCH (22:45)
[2017-02-18 23:54] LABS: ANION GAP 5 (5-19); BLOOD UREA NITROGEN 75 mg/dL (7-20); CALCIUM 10.1 mg/dL (8.4-10.2); CARBON DIOXIDE 23 mmol/L (22-30); CHLORIDE 110 mmol/L (98-107); CREATININE RESULT 2.17 mg/dL (0.52-1.25); GLUCOSE 90 mg/dL (75-110); SODIUM 137.5 mmol/L (137-145)
[2017-02-18 23:55] LABS: CREATINE KINASE < 20 U/L (55-170)
[2017-02-18 23:57] LABS: POTASSIUM 6.7 mmol/L (3.6-5.0)
[2017-02-19] MEDS ORDERED: SODIUM POLYSTYRENE SULFONATE 15 GM/60 ML PO ONE ×2 (01:46→13:00)
[2017-02-19] MEDS: HEPARIN SOD (PORCINE) 5,000 UNIT/ML 1 ML SYRINGE SUBCUT SCH ×3 (05:09→22:22)
[2017-02-19] MEDS: SODIUM POLYSTYRENE SULFONATE 15 GM/60 ML PO SCH ×3 (05:10→16:59)
[2017-02-19 07:53] LABS: ABSOLUTE EOSINOPHILS # (AUTO) 0.2 10^3/uL (0.0-0.6); ABSOLUTE LYMPHOCYTES (AUTO) 1.4 10^3/uL (0.5-4.7); ABSOLUTE MONOCYTES (AUTO) 0.4 10^3/uL (0.1-1.4); ABSOLUTE NEUT (AUTO) 3.8 10^3/uL (1.7-8.2); BASOPHILS % (AUTO) 0.4 % (0-2); EOSINOPHILS % (AUTO) 3.2 % (0-6); HEMATOCRIT 31.1 % (37.9-51.0); HEMOGLOBIN 10.8 g/dL (13.5-17.0); HGB HCT DIFFERENCE 1.3; LYMPHOCYTES % (AUTO) 24.2 % (13-45); MEAN CORPUSCULAR HEMOGLOBIN 32.1 pg (27.0-33.4); MEAN CORPUSCULAR HGB CONC 34.6 g/dL (32.0-36.0); MEAN CORPUSCULAR VOLUME 93 fl (80-97); MONOCYTES % (AUTO) 7.6 % (3-13); RED BLOOD COUNT 3.35 10^6/uL (4.35-5.55); RED CELL DISTRIBUTION WIDTH 16.8 % (11.5-14.0); SEGMENTED NEUTROPHILS % (AUTO) 64.6 % (42-78); WHITE BLOOD COUNT 5.8 10^3/uL (4.0-10.5)
[2017-02-19 08:11] LABS: ALANINE AMINOTRANSFERASE 32 U/L (21-72); ALBUMIN 2.7 g/dL (3.5-5.0); ALKALINE PHOSPHATASE 91 U/L (38-126); ANION GAP 7 (5-19); ASPARTATE AMINO TRANSFERASE 21 U/L (17-59); BILIRUBIN,DIRECT 0.3 mg/dL (0.0-0.4); BILIRUBIN,TOTAL 0.3 mg/dL (0.2-1.3); BLOOD UREA NITROGEN 64 mg/dL (7-20); CALCIUM 10.4 mg/dL (8.4-10.2); CARBON DIOXIDE 21 mmol/L (22-30); CHLORIDE 115 mmol/L (98-107); CREATININE RESULT 2.03 mg/dL (0.52-1.25); GLUCOSE 116 mg/dL (75-110); SODIUM 142.6 mmol/L (137-145); TOTAL PROTEIN 5.3 g/dL (6.3-8.2)
[2017-02-19 08:16] LABS: POTASSIUM 6.1 mmol/L (3.6-5.0)
[2017-02-19] MEDS ORDERED: LANSOPRAZOLE 30 MG TAB.RAP.DR PO SCH (10:00)
[2017-02-19] MEDS ORDERED: NORMAL SALINE INJ/PF 0.9% 10 ML SDV IV PRN (11:05)
--- NOTE | 2017-02-19 11:07 | Operative Report ---
Operative Report DATE OF SURGERY: 02/19/17 PREOPERATIVE DIAGNOSIS: 1. Dehydration. 2. Hyperkalemia OPERATION: Same SURGEON: JUAN A CUEVA ANESTHESIA: Local TISSUE REMOVED OR ALTERED: None COMPLICATIONS: None ESTIMATED BLOOD LOSS: Scant INTRAOPERATIVE FINDINGS: See below PROCEDURE: Informed consent was obtained. The patient was placed in Trendelenburg the right subclavian area was exposed , prepped and draped in a sterile fashion. Surgical plan and surgical timeout discussed. The right subclavian area was anesthetized with 1% lidocaine without epinephrine. An 18-gauge needle and wire were threaded into the right subclavian vein. The tract was dilated up, the dilator removed, and the triple- lumen central venous access catheter was threaded into the right subclavian vein uneventfully to the hub. There was excellent aspiration and flush of saline through all 3 lumens. The catheter was affixed to the skin with a Biopatch and 2-0 silk suture; sterile dressing applied. The patient tolerated the procedure well. There were no complications. Portable upright chest x-ray pending at time of dictation.
--- NOTE | 2017-02-19 11:48 | RADIOLOGY REPORT (SQ) ---
EXAM DESCRIPTION: CHEST SINGLE VIEW COMPLETED DATE/TIME: 02/19/2017 11:32 am REASON FOR STUDY: s/p line placement COMPARISON: 01/11/2017. NUMBER OF VIEWS: One view. TECHNIQUE: Single frontal radiographic view of the chest acquired. LIMITATIONS: None. FINDINGS: LUNGS AND PLEURA: No opacities, masses or pneumothorax. No pleural effusion. MEDIASTINUM AND HILAR STRUCTURES: No masses. Contour normal. HEART AND VASCULAR STRUCTURES: Heart normal in size. Normal vasculature. BONES: No acute findings. HARDWARE: Tracheostomy tube in place. Right central line with tip to the cavoatrial junction. OTHER: No other significant finding. IMPRESSION: Right central line placement without pneumothorax. Appropriate location. TECHNICAL DOCUMENTATION: JOB ID: [id number] [employer]- All Rights Reserved
[2017-02-19] MEDS: PRENATAL VITAMIN W-O CA NO5/FE FUMARATE/FA CAPSULE PO SCH (12:00)
[2017-02-19 12:02] LABS: ANION GAP 10 (5-19); BLOOD UREA NITROGEN 62 mg/dL (7-20); CALCIUM 10.5 mg/dL (8.4-10.2); CARBON DIOXIDE 22 mmol/L (22-30); CHLORIDE 114 mmol/L (98-107); CREATININE RESULT 1.95 mg/dL (0.52-1.25); GLUCOSE 119 mg/dL (75-110); SODIUM 145.5 mmol/L (137-145)
--- NOTE | 2017-02-19 12:57 | PDOC H&P ---
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 In the emergency room he was evaluated CAT scan of the abdomen and pelvis with contrast was done it showed no evidence of small bowel obstruction essentially it was a negative study other than enlarged prostate gland. Patient stated that whenever he uses the feeding tube for nutrition he will experience abdominal pain and he has been refusing tube feeds in the [facility] before transfer to the emergency room. The metabolic profile showed severe hyperkalemia with serum potassium of 6.9 also found was acute kidney injury serum creatinine was 2.68 ,initially the potassium was 7.5 he was appropriately treated in the emergency room with calcium gluconate, 50% dextrose, Kayexalate despite this treatment the hyperkalemia persisted the hyperkalemia is probably due to transcellular shift of potassium. The serum lipase was also elevated at 823.4 both the CAT scan of the abdomen and pelvis did not show any inflammation of the pancreas. 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 He has multiple comorbid conditions including atrial fibrillation, hypertension, peripheral vascular disease hyperlipidemia the acute kidney injury is most likely prerenal due to dehydration Past Medical History Cardiac Medical History: Reports: Atrial Fibrillation, Congestive Heart Failure , Myocardial Infarction, Hyperlipidema - ON MEDS, Hypertension - ON MEDS Pulmonary Medical History: Malignancy Medical History: GI Medical History: Reports: Gastroesophageal Reflux Disease Musculoskeltal Medical History: Hematology: Reports: Anemia Past Surgical History Past Surgical History: Reports: Cardiac Catheterization, Carotid Endarterectomy - Right, Cholecystectomy, Ileostomy, Other - Exploratory laparotomy with total colectomy and splenic biopsy,carotid enda Social History Smoking Status: Former Smoker Frequency of Alcohol Use: Occasional Hx Recreational Drug Use: No Drugs: None Hx Prescription Drug Abuse: No Family History Family History: Reviewed & Not Pertinent, Malignancy - Colon cancer Parental Family History Reviewed: Yes Children Family History Reviewed: Yes Sibling(s) Family History Reviewed.: Yes Medication/Allergy Home Medications: Amlodipine Besylate [Norvasc 5 mg Tablet] 5 mg PO QHS 02/18/17 Docusate Sodium [Colace 100 mg Capsule] 100 mg PO Q12 02/18/17 Lisinopril [Zestril] 20 mg PO DAILY 02/18/17 Multivitamin/Iron/Folic Acid [Centrum Adults Tablet] 1 tab PO DAILY 02/18/17 Pantoprazole Sodium [Protonix] 40 mg PO DAILY 02/18/17 Pravastatin Sodium [Pravachol] 40 mg PO DAILY 02/18/17 Tolterodine Tartrate [Detrol La] 4 mg PO QHS 02/18/17 Allergies/Adverse Reactions: No Known Allergies Allergy (Verified 12/16/16 11:33) Review of Systems Constitutional: PRESENT: fatigue Eyes: ABSENT: visual disturbances Ears: ABSENT: hearing changes Cardiovascular: ABSENT: as per HPI, chest pain, dyspnea on exertion, edema, orthropnea, palpitations, other Respiratory: ABSENT: cough, hemoptysis Gastrointestinal: PRESENT: abdominal pain, nausea, vomiting Genitourinary: ABSENT: dysuria, hematuria Musculoskeletal: ABSENT: joint swelling Integumentary: ABSENT: rash, wounds Neurological: ABSENT: abnormal gait, abnormal speech, confusion, dizziness, focal weakness, syncope Psychiatric: ABSENT: anxiety, depression, homidical ideation, suicidal ideation Endocrine: ABSENT: cold intolerance, heat intolerance, menstrual abnormalities, polydipsia, polyuria Hematologic/Lymphatic: ABSENT: easy bleeding, easy bruising, lymphadenopathy Physical Exam Vital Signs: Temp Pulse Resp BP Pulse Ox 97.5 F 95 18 104/52 L 100 02/19/17 07:36 02/19/17 07:36 02/19/17 07:36 02/19/17 07:36 02/19/17 07:36 Intake & Output 02/18/17 02/19/17 02/20/17 06:59 06:59 06:59 Intake Total 526 Output Total 2830 1620 Balance -2304 -1620 Weight 63.5 kg General appearance: PRESENT: mild distress Head exam: PRESENT: atraumatic, normocephalic Eye exam: PRESENT: conjunctiva pink, EOMI, PERRLA Ear exam: PRESENT: normal external ear exam Mouth exam: PRESENT: moist, tongue midline Neck exam: PRESENT: full ROM Respiratory exam: PRESENT: clear to auscultation annabel Cardiovascular exam: PRESENT: RRR, +S1, +S2 Vascular exam: PRESENT: normal capillary refill GI/Abdominal exam: PRESENT: normal bowel sounds, soft, other - ileostomy bag Rectal exam: PRESENT: deferred Neurological exam: PRESENT: alert, awake, oriented to person, oriented to place , oriented to time, oriented to situation, CN II-XII grossly intact Psychiatric exam: PRESENT: appropriate affect, normal mood Skin exam: PRESENT: dry, intact, warm Results Laboratory Results: 02/19/17 07:39 02/19/17 11:27 02/18/17 02/18/17 02/18/17 14:55 14:55 15:35 WBC RBC Hgb Hct MCV MCH MCHC RDW Plt Count Seg Neutrophils % Lymphocytes % Monocytes % Eosinophils % Basophils % Absolute Neutrophils Absolute Lymphocytes Absolute Monocytes Absolute Eosinophils Absolute Basophils Sodium Cancelled 136.2 L Potassium Cancelled 6.8 H* Chloride Cancelled 107 Carbon Dioxide Cancelled 23 Anion Gap Cancelled 6 BUN Cancelled 81 H Creatinine Cancelled 2.41 H Est GFR ( Amer) Cancelled 32 L Est GFR (Non-Af Amer) Cancelled 26 L Glucose Cancelled 96 Calcium Cancelled 9.8 Phosphorus 4.7 H Magnesium 2.0 Total Bilirubin 0.3 AST 16 L ALT 32 Alkaline Phosphatase 90 Total Protein 5.2 L Albumin 2.7 L TSH 1.04 Free T4 1.26 02/18/17 02/18/17 02/19/17 19:48 23:34 07:39 WBC 5.8 RBC 3.35 L Hgb 10.8 L Hct 31.1 L MCV 93 MCH 32.1 MCHC 34.6 RDW 16.8 H Plt Count 161 Seg Neutrophils % 64.6 Lymphocytes % 24.2 Monocytes % 7.6 Eosinophils % 3.2 Basophils % 0.4 Absolute Neutrophils 3.8 Absolute Lymphocytes 1.4 Absolute Monocytes 0.4 Absolute Eosinophils 0.2 Absolute Basophils 0.0 Sodium 137.1 137.5 Potassium 6.6 H* 6.7 H* Chloride 108 H 110 H Carbon Dioxide 22 23 Anion Gap 7 5 BUN 80 H 75 H Creatinine 2.26 H 2.17 H Est GFR ( Amer) 34 L 36 L Est GFR (Non-Af Amer) 28 L 29 L Glucose 69 L 90 Calcium 10.0 10.1 Phosphorus Magnesium Total Bilirubin AST ALT Alkaline Phosphatase Total Protein Albumin TSH Free T4 02/19/17 02/19/17 07:39 11:27 WBC RBC Hgb Hct MCV MCH MCHC RDW Plt Count Seg Neutrophils % Lymphocytes % Monocytes % Eosinophils % Basophils % Absolute Neutrophils Absolute Lymphocytes Absolute Monocytes Absolute Eosinophils Absolute Basophils Sodium 142.6 145.5 H Potassium 6.1 H* 6.0 H* Chloride 115 H 114 H Carbon Dioxide 21 L 22 Anion Gap 7 10 BUN 64 H 62 H Creatinine 2.03 H 1.95 H Est GFR ( Amer) 38 L 40 L Est GFR (Non-Af Amer) 32 L 33 L Glucose 116 H 119 H Calcium 10.4 H 10.5 H Phosphorus Magnesium Total Bilirubin 0.3 AST 21 ALT 32 Alkaline Phosphatase 91 Total Protein 5.3 L Albumin 2.7 L TSH Free T4 02/18/17 02/18/17 02/18/17 15:35 15:35 23:34 Creatine Kinase < 20 L < 20 L CK-MB (CK-2) 0.71 02/18/17 02/19/17 02/19/17 23:34 07:39 07:39 Creatine Kinase < 20 L CK-MB (CK-2) 0.97 1.00 Impressions: Abdomen/Pelvis CT 02/18/17 00:00 IMPRESSION: 1. No evidence of small bowel obstruction. Postoperative changes include G-tube and colectomy. Ascites no longer appreciated. Acute Abdomen Series 02/18/17 05:11 IMPRESSION: Nonobstructive bowel gas pattern. Chest X-Ray 02/19/17 11:06 IMPRESSION: Right central line placement without pneumothorax. Appropriate location. Assessment & Plan - Diagnosis (1) Acute kidney injury Is this a current diagnosis for this admission?: Yes Plan: He has acute kidney injury most likely prerenal from volume loss due to ileostomy tube output. He will be vigorously hydrated with fluids, will follow kidney function serially (2) Hyperkalemia Is this a current diagnosis for this admission?: Yes Plan: The hyperkalemia is most likely from transcellular shift of potassium due to acidosis and dehydration, we will continue to treat with Kayexalate, calcium gluconate insulin on until serum potassium is normal.
--- NOTE | 2017-02-19 13:15 | PDOC PROGRESS REPORT ---
Subjective Progress Note for:: 02/19/17 Subjective:: Patient was admitted yesterday because of acute kidney injury due to volume loss from high output ileostomy bag, patient is improving with hydration the hyperkalemia is also improving. Patient has not been eating orally he has a PEG tube in place and the PEG tube is not utilized at all times for nutrition and hydration purposes, speech evaluation will be requested to determine if patient could eat orally. Physical Exam Vital Signs: Temp Pulse Resp BP Pulse Ox 97.5 F 95 18 104/52 L 100 02/19/17 07:36 02/19/17 07:36 02/19/17 07:36 02/19/17 07:36 02/19/17 07:36 Intake & Output 02/18/17 02/19/17 02/20/17 06:59 06:59 06:59 Intake Total 526 Output Total 2830 1620 Balance -2304 -1620 Weight 63.5 kg General appearance: PRESENT: no acute distress Eye exam: PRESENT: PERRLA Neck exam: PRESENT: tracheostomy Respiratory exam: PRESENT: clear to auscultation annabel Cardiovascular exam: PRESENT: +S1, +S2 GI/Abdominal exam: PRESENT: soft, other - PEG tube in place Neurological exam: PRESENT: alert, CN II-XII grossly intact Results Laboratory Results: 02/19/17 07:39 02/19/17 11:27 02/18/17 02/18/17 02/18/17 14:55 14:55 15:35 WBC RBC Hgb Hct MCV MCH MCHC RDW Plt Count Seg Neutrophils % Lymphocytes % Monocytes % Eosinophils % Basophils % Absolute Neutrophils Absolute Lymphocytes Absolute Monocytes Absolute Eosinophils Absolute Basophils Sodium Cancelled 136.2 L Potassium Cancelled 6.8 H* Chloride Cancelled 107 Carbon Dioxide Cancelled 23 Anion Gap Cancelled 6 BUN Cancelled 81 H Creatinine Cancelled 2.41 H Est GFR ( Amer) Cancelled 32 L Est GFR (Non-Af Amer) Cancelled 26 L Glucose Cancelled 96 Calcium Cancelled 9.8 Phosphorus 4.7 H Magnesium 2.0 Total Bilirubin 0.3 AST 16 L ALT 32 Alkaline Phosphatase 90 Total Protein 5.2 L Albumin 2.7 L TSH 1.04 Free T4 1.26 02/18/17 02/18/17 02/19/17 19:48 23:34 07:39 WBC 5.8 RBC 3.35 L Hgb 10.8 L Hct 31.1 L MCV 93 MCH 32.1 MCHC 34.6 RDW 16.8 H Plt Count 161 Seg Neutrophils % 64.6 Lymphocytes % 24.2 Monocytes % 7.6 Eosinophils % 3.2 Basophils % 0.4 Absolute Neutrophils 3.8 Absolute Lymphocytes 1.4 Absolute Monocytes 0.4 Absolute Eosinophils 0.2 Absolute Basophils 0.0 Sodium 137.1 137.5 Potassium 6.6 H* 6.7 H* Chloride 108 H 110 H Carbon Dioxide 22 23 Anion Gap 7 5 BUN 80 H 75 H Creatinine 2.26 H 2.17 H Est GFR ( Amer) 34 L 36 L Est GFR (Non-Af Amer) 28 L 29 L Glucose 69 L 90 Calcium 10.0 10.1 Phosphorus Magnesium Total Bilirubin AST ALT Alkaline Phosphatase Total Protein Albumin TSH Free T4 02/19/17 02/19/17 07:39 11:27 WBC RBC Hgb Hct MCV MCH MCHC RDW Plt Count Seg Neutrophils % Lymphocytes % Monocytes % Eosinophils % Basophils % Absolute Neutrophils Absolute Lymphocytes Absolute Monocytes Absolute Eosinophils Absolute Basophils Sodium 142.6 145.5 H Potassium 6.1 H* 6.0 H* Chloride 115 H 114 H Carbon Dioxide 21 L 22 Anion Gap 7 10 BUN 64 H 62 H Creatinine 2.03 H 1.95 H Est GFR ( Amer) 38 L 40 L Est GFR (Non-Af Amer) 32 L 33 L Glucose 116 H 119 H Calcium 10.4 H 10.5 H Phosphorus Magnesium Total Bilirubin 0.3 AST 21 ALT 32 Alkaline Phosphatase 91 Total Protein 5.3 L Albumin 2.7 L TSH Free T4 02/18/17 02/18/17 02/18/17 15:35 15:35 23:34 Creatine Kinase < 20 L < 20 L CK-MB (CK-2) 0.71 02/18/17 02/19/17 02/19/17 23:34 07:39 07:39 Creatine Kinase < 20 L CK-MB (CK-2) 0.97 1.00 Impressions: Abdomen/Pelvis CT 02/18/17 00:00 IMPRESSION: 1. No evidence of small bowel obstruction. Postoperative changes include G-tube and colectomy. Ascites no longer appreciated. Acute Abdomen Series 02/18/17 05:11 IMPRESSION: Nonobstructive bowel gas pattern. Chest X-Ray 02/19/17 11:06 IMPRESSION: Right central line placement without pneumothorax. Appropriate location. Assessment & Plan - Diagnosis (1) Acute kidney injury Is this a current diagnosis for this admission?: Yes Plan: Continue hydration with normal saline at present rate (2) Hyperkalemia Is this a current diagnosis for this admission?: Yes Plan: Continue treatment
[2017-02-19 16:09] LABS: ANION GAP 8 (5-19); BLOOD UREA NITROGEN 58 mg/dL (7-20); CALCIUM 10.4 mg/dL (8.4-10.2); CARBON DIOXIDE 21 mmol/L (22-30); CHLORIDE 118 mmol/L (98-107); CREATININE RESULT 1.96 mg/dL (0.52-1.25); GLUCOSE 129 mg/dL (75-110)
[2017-02-19] MEDS ORDERED: DEXTROSE 50%-WATER 25 GM/50 ML DISP.SYRIN IV ONE (16:45)
[2017-02-19] MEDS ORDERED: INSULIN REG, HUMAN 100 UNIT/ML 3 ML VIAL (PYX) IV ONE (16:45)
[2017-02-19] MEDS ORDERED: CALCIUM GLUCONATE 1,000 MG in DEXTROSE 5%-WATER 50 ML IV ONE (16:45)
[2017-02-19] MEDS ORDERED: CALCIUM GLUCONATE 1000 MG/10 ML INJ IV ONE (16:52)
[2017-02-19] MEDS ORDERED: DEXTROSE 5%-WATER 1000 ML 1,000 ML with SODIUM BICARBONATE 150 MEQ IV PRN ×2 (19:24)
[2017-02-19] MEDS ORDERED: SODIUM BICARBONATE 8.4% INJ 50 MEQ/50 ML DISP.SYRIN ONE (19:56)
[2017-02-19] MEDS ORDERED: ALBUTEROL SULFATE 0.083% NEB 2.5 MG/3 ML AMPUL NEB SCH (20:00)
[2017-02-19 20:19] LABS: ANION GAP 6 (5-19); BLOOD UREA NITROGEN 57 mg/dL (7-20); CALCIUM 10.7 mg/dL (8.4-10.2); CARBON DIOXIDE 21 mmol/L (22-30); CHLORIDE 121 mmol/L (98-107); CREATININE RESULT 2.09 mg/dL (0.52-1.25); GLUCOSE 86 mg/dL (75-110); POTASSIUM 5.6 mmol/L (3.6-5.0); SODIUM 148.4 mmol/L (137-145)
[2017-02-19] MEDS: ALBUTEROL SULFATE 0.083% NEB 2.5 MG/3 ML AMPUL NEB SCH ×2 (20:42→23:31)
[2017-02-19] MEDS: AMLODIPINE BESYLATE 5 MG TABLET PO SCH (22:22)
[2017-02-19] MEDS: ATORVASTATIN CALCIUM 10 MG TABLET PO SCH (22:22)
[2017-02-19] MEDS: TOLTERODINE TARTRATE 1 MG TABLET PO SCH (22:22)
[2017-02-20] MEDS: ALBUTEROL SULFATE 0.083% NEB 2.5 MG/3 ML AMPUL NEB SCH ×4 (03:51→16:03)
[2017-02-20 04:04] LABS: ANION GAP 9 (5-19); BLOOD UREA NITROGEN 57 mg/dL (7-20); CARBON DIOXIDE 24 mmol/L (22-30); CHLORIDE 115 mmol/L (98-107); CREATININE RESULT 1.96 mg/dL (0.52-1.25); GLUCOSE 179 mg/dL (75-110); POTASSIUM 5.2 mmol/L (3.6-5.0); SODIUM 147.8 mmol/L (137-145)
[2017-02-20 05:42] LABS: ANION GAP 7 (5-19); BLOOD UREA NITROGEN 56 mg/dL (7-20); CARBON DIOXIDE 25 mmol/L (22-30); CHLORIDE 115 mmol/L (98-107); CREATININE RESULT 2.04 mg/dL (0.52-1.25); GLUCOSE 178 mg/dL (75-110); POTASSIUM 4.8 mmol/L (3.6-5.0); SODIUM 147.3 mmol/L (137-145)
[2017-02-20] MEDS: HEPARIN SOD (PORCINE) 5,000 UNIT/ML 1 ML SYRINGE SUBCUT SCH ×3 (05:44→22:11)
[2017-02-20 06:05] LABS: ABSOLUTE EOSINOPHILS # (AUTO) 0.1 10^3/uL (0.0-0.6); ABSOLUTE MONOCYTES (AUTO) 0.5 10^3/uL (0.1-1.4); ABSOLUTE NEUT (AUTO) 4.5 10^3/uL (1.7-8.2); BASOPHILS % (AUTO) 0.3 % (0-2); HEMATOCRIT 30.8 % (37.9-51.0); HEMOGLOBIN 9.9 g/dL (13.5-17.0); HGB HCT DIFFERENCE -1.1; MEAN CORPUSCULAR HEMOGLOBIN 30.3 pg (27.0-33.4); MEAN CORPUSCULAR HGB CONC 32.2 g/dL (32.0-36.0); MEAN CORPUSCULAR VOLUME 94 fl (80-97); MONOCYTES % (AUTO) 8.6 % (3-13); RED BLOOD COUNT 3.27 10^6/uL (4.35-5.55); RED CELL DISTRIBUTION WIDTH 17.1 % (11.5-14.0); SEGMENTED NEUTROPHILS % (AUTO) 74.1 % (42-78)
[2017-02-20] MEDS: DEXTROSE 5%-WATER 1000 ML 1,000 ML IV PRN ×2 (08:17→17:51)
[2017-02-20] MEDS: LANSOPRAZOLE 30 MG TAB.RAP.DR PO SCH (10:48)
[2017-02-20] MEDS: PRENATAL VITAMIN W-O CA NO5/FE FUMARATE/FA CAPSULE PO SCH (10:49)
[2017-02-20 11:01] LABS: ANION GAP 8 (5-19); BLOOD UREA NITROGEN 57 mg/dL (7-20); CALCIUM 9.8 mg/dL (8.4-10.2); CARBON DIOXIDE 23 mmol/L (22-30); CHLORIDE 114 mmol/L (98-107); CREATININE RESULT 1.91 mg/dL (0.52-1.25); GLUCOSE 208 mg/dL (75-110); POTASSIUM 4.7 mmol/L (3.6-5.0); SODIUM 144.7 mmol/L (137-145)
[2017-02-20 15:33] LABS: ANION GAP 9 (5-19); BLOOD UREA NITROGEN 54 mg/dL (7-20); CALCIUM 9.4 mg/dL (8.4-10.2); CARBON DIOXIDE 23 mmol/L (22-30); CHLORIDE 111 mmol/L (98-107); CREATININE RESULT 1.99 mg/dL (0.52-1.25); GLUCOSE 174 mg/dL (75-110); POTASSIUM 4.5 mmol/L (3.6-5.0); SODIUM 143.2 mmol/L (137-145)
--- NOTE | 2017-02-20 17:36 | PDOC PROGRESS REPORT ---
Subjective Progress Note for:: 02/27/17 Subjective:: Patient was seen by the bedside, the hyperkalemia is resolved with the use of multiple modalities including beta agonist with Proventil, bicarbonate infusion in the setting of mild acidosis, the Kayexalate was not effective because patient is status post complete colectomy. Patient was seen by speech today and it was advised that patient could eat and drink orally. The azotemia is improving but previously required hydration the infusion was changed from isotonic saline to 5% dextrose because of hypernatremia Physical Exam Vital Signs: Temp Pulse Resp BP Pulse Ox 98.1 F 98 20 99/50 L 100 02/20/17 16:10 02/20/17 16:10 02/20/17 16:10 02/20/17 16:10 02/20/17 16:10 Intake & Output 02/19/17 02/20/17 02/21/17 06:59 06:59 06:59 Intake Total 526 2760 Output Total 2830 3795 Balance -2304 -1035 Weight 63.5 kg 64.4 kg General appearance: PRESENT: mild distress Eye exam: PRESENT: PERRLA Neck exam: PRESENT: tracheostomy Respiratory exam: PRESENT: decreased breath sounds Cardiovascular exam: PRESENT: +S1, +S2 GI/Abdominal exam: PRESENT: soft, other - PEG tube in place Neurological exam: PRESENT: alert, CN II-XII grossly intact Results Laboratory Results: 02/20/17 05:53 02/19/17 02/20/17 02/20/17 19:54 03:32 04:48 WBC RBC Hgb Hct MCV MCH MCHC RDW Plt Count Seg Neutrophils % Lymphocytes % Monocytes % Eosinophils % Basophils % Absolute Neutrophils Absolute Lymphocytes Absolute Monocytes Absolute Eosinophils Absolute Basophils Sodium 148.4 H 147.8 H 147.3 H Potassium 5.6 H 5.2 H 4.8 Chloride 121 H 115 H 115 H Carbon Dioxide 21 L 24 25 Anion Gap 6 9 7 BUN 57 H 57 H 56 H Creatinine 2.09 H 1.96 H 2.04 H Est GFR ( Amer) 37 L 40 L 38 L Est GFR (Non-Af Amer) 31 L 33 L 32 L Glucose 86 179 H 178 H Calcium 10.7 H 10.0 10.0 02/20/17 02/20/17 02/20/17 05:53 10:29 15:00 WBC 6.0 RBC 3.27 L Hgb 9.9 L Hct 30.8 L MCV 94 MCH 30.3 MCHC 32.2 RDW 17.1 H Plt Count 166 Seg Neutrophils % 74.1 Lymphocytes % 16.0 Monocytes % 8.6 Eosinophils % 1.0 Basophils % 0.3 Absolute Neutrophils 4.5 Absolute Lymphocytes 1.0 Absolute Monocytes 0.5 Absolute Eosinophils 0.1 Absolute Basophils 0.0 Sodium 144.7 143.2 Potassium 4.7 4.5 Chloride 114 H 111 H Carbon Dioxide 23 23 Anion Gap 8 9 BUN 57 H 54 H Creatinine 1.91 H 1.99 H Est GFR ( Amer) 41 L 39 L Est GFR (Non-Af Amer) 34 L 32 L Glucose 208 H 174 H Calcium 9.8 9.4 02/18/17 02/18/17 02/18/17 15:35 15:35 23:34 Creatine Kinase < 20 L < 20 L CK-MB (CK-2) 0.71 02/18/17 02/19/17 02/19/17 23:34 07:39 07:39 Creatine Kinase < 20 L CK-MB (CK-2) 0.97 1.00 Impressions: Abdomen/Pelvis CT 02/18/17 00:00 IMPRESSION: 1. No evidence of small bowel obstruction. Postoperative changes include G-tube and colectomy. Ascites no longer appreciated. Acute Abdomen Series 02/18/17 05:11 IMPRESSION: Nonobstructive bowel gas pattern. Chest X-Ray 02/19/17 11:06 IMPRESSION: Right central line placement without pneumothorax. Appropriate location. Assessment & Plan - Diagnosis (1) Acute kidney injury Is this a current diagnosis for this admission?: Yes (2) Hyperkalemia Is this a current diagnosis for this admission?: Yes Plan: The hyperkalemia is resolved, treatment included multiple modalities including bicarbonate infusion, beta agonist with Proventil, calcium gluconate infusions, 50% dextrose with insulin (3) Hypernatremia Is this a current diagnosis for this admission?: Yes Plan: The IV infusion is changed from isotonic saline to 5% dextrose
[2017-02-20 17:57] LABS: ANION GAP 8 (5-19); BLOOD UREA NITROGEN 55 mg/dL (7-20); CALCIUM 9.3 mg/dL (8.4-10.2); CARBON DIOXIDE 23 mmol/L (22-30); CHLORIDE 110 mmol/L (98-107); CREATININE RESULT 1.99 mg/dL (0.52-1.25); GLUCOSE 178 mg/dL (75-110); POTASSIUM 4.4 mmol/L (3.6-5.0); SODIUM 141.1 mmol/L (137-145)
[2017-02-20] MEDS: TOLTERODINE TARTRATE 1 MG TABLET PO SCH (22:11)
[2017-02-20] MEDS: ATORVASTATIN CALCIUM 10 MG TABLET PO SCH (22:11)
[2017-02-20] MEDS: AMLODIPINE BESYLATE 5 MG TABLET PO SCH (22:12)
[2017-02-21] MEDS: DEXTROSE 5%-WATER 1000 ML 1,000 ML IV PRN ×2 (03:24→14:16)
[2017-02-21] MEDS: HEPARIN SOD (PORCINE) 5,000 UNIT/ML 1 ML SYRINGE SUBCUT SCH ×3 (06:46→22:31)
[2017-02-21 06:57] LABS: ABSOLUTE EOSINOPHILS # (AUTO) 0.2 10^3/uL (0.0-0.6); ABSOLUTE LYMPHOCYTES (AUTO) 1.1 10^3/uL (0.5-4.7); ABSOLUTE MONOCYTES (AUTO) 0.4 10^3/uL (0.1-1.4); ABSOLUTE NEUT (AUTO) 4.4 10^3/uL (1.7-8.2); BASOPHILS % (AUTO) 0.4 % (0-2); EOSINOPHILS % (AUTO) 3.3 % (0-6); LYMPHOCYTES % (AUTO) 17.7 % (13-45); MEAN CORPUSCULAR HEMOGLOBIN 31.3 pg (27.0-33.4); MEAN CORPUSCULAR HGB CONC 33.5 g/dL (32.0-36.0); MEAN CORPUSCULAR VOLUME 94 fl (80-97); MONOCYTES % (AUTO) 6.4 % (3-13); RED BLOOD COUNT 2.89 10^6/uL (4.35-5.55); RED CELL DISTRIBUTION WIDTH 16.3 % (11.5-14.0); SEGMENTED NEUTROPHILS % (AUTO) 72.2 % (42-78); WHITE BLOOD COUNT 6.2 10^3/uL (4.0-10.5)
--- NOTE | 2017-02-21 08:58 | OPERATIVE REPORT E ---
Operative Report NAME: GUSTAVO HEARN : 1935 AGE: 81Y DATE OF SURGERY: 02/21/2017 ROOM: 309 PREOPERATIVE DIAGNOSIS: Dislodged tracheostomy tube. POSTOPERATIVE DIAGNOSIS: Dislodged tracheostomy tube. PROCEDURE: Placement of new size 5 trach tube. SURGEON: TEX MCKEON M.D. INDICATIONS/PROCEDURE: This is an 81-year-old male who had a trach about 3-[address] Gregory[address] He also had a total colectomy for toxic megacolon prior to that. Today patient has been coughing and trach tube came out. A new 5 Shiley trach tube was then inserted through the old trach tube site. Since this was a relatively long indwelling trach tube, the new trach tube was easily placed through the old tract with the obturator. The obturator was then removed and a new partially closed obturator was placed. Patient allowing to speak. The trach tube went in easily. This was then anchored in the back with a trach tube collar. Patient tolerated the procedure well. DICTATING PHYSICIAN: TEX MCKEON M.D. [id number] PHY#: [id number] ID: [id number] JOB#: [id number] ACCT: [id number] cc:TEX MCKEON M.D. >
[2017-02-21 09:18] LABS: ALANINE AMINOTRANSFERASE 34 U/L (21-72); ALBUMIN 2.4 g/dL (3.5-5.0); ALKALINE PHOSPHATASE 97 U/L (38-126); ANION GAP 6 (5-19); ASPARTATE AMINO TRANSFERASE 35 U/L (17-59); BILIRUBIN,DIRECT 0.2 mg/dL (0.0-0.4); BILIRUBIN,TOTAL 0.2 mg/dL (0.2-1.3); BLOOD UREA NITROGEN 56 mg/dL (7-20); CALCIUM 9.2 mg/dL (8.4-10.2); CARBON DIOXIDE 24 mmol/L (22-30); CHLORIDE 106 mmol/L (98-107); CREATININE RESULT 2.15 mg/dL (0.52-1.25); GLUCOSE 130 mg/dL (75-110); POTASSIUM 4.2 mmol/L (3.6-5.0); SODIUM 136.2 mmol/L (137-145); TOTAL PROTEIN 4.9 g/dL (6.3-8.2)
[2017-02-21] MEDS: LANSOPRAZOLE 30 MG TAB.RAP.DR PO SCH (12:19)
[2017-02-21] MEDS: PRENATAL VITAMIN W-O CA NO5/FE FUMARATE/FA CAPSULE PO SCH (12:48)
--- NOTE | 2017-02-21 20:17 | PDOC PROGRESS REPORT ---
Subjective Progress Note for:: 02/21/17 Subjective:: Patient was seen by speech, speech Clement. Diet for patient. The hyperkalemia has resolved still have acute kidney injury we will continue hydration, presently on 5% dextrose will change IV fluid to normal saline other than free water. Physical Exam Vital Signs: Temp Pulse Resp BP Pulse Ox 98.7 F 88 16 131/50 H 100 02/21/17 15:16 02/21/17 15:16 02/21/17 15:16 02/21/17 15:16 02/21/17 15:16 Intake & Output 02/20/17 02/21/17 02/22/17 06:59 06:59 06:59 Intake Total 2760 2567 1670 Output Total 3795 1200 1025 Balance -1035 1367 645 Weight 64.4 kg 81.6 kg General appearance: PRESENT: no acute distress Eye exam: PRESENT: PERRLA Respiratory exam: PRESENT: decreased breath sounds Cardiovascular exam: PRESENT: +S1, +S2 GI/Abdominal exam: PRESENT: soft Neurological exam: PRESENT: alert Results Laboratory Results: 02/21/17 05:45 02/21/17 05:45 02/21/17 02/21/17 05:45 05:45 WBC 6.2 RBC 2.89 L Hgb 9.0 L Hct 27.0 L MCV 94 MCH 31.3 MCHC 33.5 RDW 16.3 H Plt Count 148 L Seg Neutrophils % 72.2 Lymphocytes % 17.7 Monocytes % 6.4 Eosinophils % 3.3 Basophils % 0.4 Absolute Neutrophils 4.4 Absolute Lymphocytes 1.1 Absolute Monocytes 0.4 Absolute Eosinophils 0.2 Absolute Basophils 0.0 Sodium 136.2 L Potassium 4.2 Chloride 106 Carbon Dioxide 24 Anion Gap 6 BUN 56 H Creatinine 2.15 H Est GFR ( Amer) 36 L Est GFR (Non-Af Amer) 30 L Glucose 130 H Calcium 9.2 Total Bilirubin 0.2 AST 35 ALT 34 Alkaline Phosphatase 97 Total Protein 4.9 L Albumin 2.4 L 02/18/17 02/18/17 02/18/17 15:35 15:35 23:34 Creatine Kinase < 20 L < 20 L CK-MB (CK-2) 0.71 02/18/17 02/19/17 02/19/17 23:34 07:39 07:39 Creatine Kinase < 20 L CK-MB (CK-2) 0.97 1.00 Impressions: Abdomen/Pelvis CT 02/18/17 00:00 IMPRESSION: 1. No evidence of small bowel obstruction. Postoperative changes include G-tube and colectomy. Ascites no longer appreciated. Acute Abdomen Series 02/18/17 05:11 IMPRESSION: Nonobstructive bowel gas pattern. Chest X-Ray 02/19/17 11:06 IMPRESSION: Right central line placement without pneumothorax. Appropriate location. Assessment & Plan - Diagnosis (1) Acute kidney injury Is this a current diagnosis for this admission?: Yes Plan: Change IV fluids to normal saline (2) Hyperkalemia Is this a current diagnosis for this admission?: Yes (3) Hypernatremia Is this a current diagnosis for this admission?: Yes
[2017-02-21] MEDS: NORMAL SALINE 1000 ML 1,000 ML IV PRN (20:44)
--- NOTE | 2017-02-21 21:14 | RADIOLOGY REPORT (SQ) ---
EXAM DESCRIPTION: VENOUS UNILATERAL UPPER COMPLETED DATE/TIME: 02/21/2017 8:53 pm REASON FOR STUDY: RT UPPER ARM SWELLING COMPARISON: None. TECHNIQUE: Dynamic and static sandra scale and color images acquired of the right arm venous system. S elected spectral images acquired with additional compression and augmentation maneuvers. The contrala teral subclavian vein and internal jugular vein were also imaged. Images stored on PACS. LIMITATIONS: None. FINDINGS: INTERNAL JUGULAR VEIN: Normal phasicity, compression, augmentation. No visualized echogeni c material on sandra scale. No defects on color images. Comparison opposite side normal. SUBCLAVIAN VEIN: Normal compression, augmentation. No visualized echogenic material on sandra scale. No defects on color images. AXILLARY VEIN: Normal compression, augmentation. No visualized echogenic material on sandra scale. No d efects on color images. BRACHIAL VEIN: Normal compression, augmentation. No visualized echogenic material on sandra scale. No d efects on color images. BASILIC VEIN: Normal compression, augmentation. No visualized echogenic material on sandra scale. No de fects on color images. CEPHALIC VEIN: Normal compression, augmentation. No visualized echogenic material on sandra scale. No d efects on color images. OTHER: No other significant finding. CONTRALATERAL SUBCLAVIAN VEIN AND INTERNAL JUGULAR VEIN: Normal phasicity, compression and augmentation. No visualized echogenic material on sandra scale. No de fects on color images. IMPRESSION: NO EVIDENCE DVT OR SVT IN THE RIGHT ARM. TECHNICAL DOCUMENTATION: JOB ID: [id number] [employer]- All Rights Reserved
[2017-02-21] MEDS: AMLODIPINE BESYLATE 5 MG TABLET PO SCH (22:31)
[2017-02-21] MEDS: ATORVASTATIN CALCIUM 10 MG TABLET PO SCH (22:31)
[2017-02-21] MEDS: TOLTERODINE TARTRATE 1 MG TABLET PO SCH (22:31)
[2017-02-22] MEDS: ALPRAZOLAM 0.25 MG TABLET PO PRN ×2 (00:48→23:57)
[2017-02-22] MEDS: HEPARIN SOD (PORCINE) 5,000 UNIT/ML 1 ML SYRINGE SUBCUT SCH ×3 (06:25→22:28)
[2017-02-22] MEDS: NORMAL SALINE 1000 ML 1,000 ML IV PRN ×2 (06:44→17:35)
[2017-02-22 07:08] LABS: BLOOD UREA NITROGEN 40 mg/dL (7-20); CALCIUM 8.9 mg/dL (8.4-10.2); CARBON DIOXIDE 24 mmol/L (22-30); CHLORIDE 108 mmol/L (98-107); CREATININE RESULT 1.64 mg/dL (0.52-1.25); GLUCOSE 88 mg/dL (75-110); POTASSIUM 4.7 mmol/L (3.6-5.0); SODIUM 134.7 mmol/L (137-145)
[2017-02-22 07:09] LABS: ANION GAP 3 (5-19)
[2017-02-22] MEDS: LANSOPRAZOLE 30 MG TAB.RAP.DR PO SCH (07:55)
[2017-02-22] MEDS: PRENATAL VITAMIN W-O CA NO5/FE FUMARATE/FA CAPSULE PO SCH (11:10)
[2017-02-22 14:35] LABS: HEMATOCRIT 26.3 % (37.9-51.0); HGB HCT DIFFERENCE 0.7; MEAN CORPUSCULAR HGB CONC 34.2 g/dL (32.0-36.0); MEAN CORPUSCULAR VOLUME 91 fl (80-97); RED CELL DISTRIBUTION WIDTH 15.5 % (11.5-14.0); WHITE BLOOD COUNT 7.4 10^3/uL (4.0-10.5)
--- NOTE | 2017-02-22 17:51 | PDOC PROGRESS REPORT ---
Subjective Progress Note for:: 02/22/17 Subjective:: Patient was seen by the bedside, the kidney function is improved compared to yesterday, the intravenous infusion was changed from 5% dextrose to isotonic saline. Patient was able to walk with physical therapy today. He continues to tolerate p.o. meals, the tube feed was discontinued the last 24 hours. Hopefully patient be discharged back to [facility] once kidney function fully recovers Physical Exam Vital Signs: Temp Pulse Resp BP Pulse Ox 98.9 F 85 18 116/50 L 100 02/22/17 15:18 02/22/17 15:18 02/22/17 15:18 02/22/17 15:18 02/22/17 15:18 Intake & Output 02/21/17 02/22/17 02/23/17 06:59 06:59 06:59 Intake Total 2567 2770 775 Output Total 1200 1325 1500 Balance 1367 1445 -725 Weight 81.6 kg 68.5 kg General appearance: PRESENT: no acute distress Eye exam: PRESENT: PERRLA Neck exam: PRESENT: tracheostomy Respiratory exam: PRESENT: decreased breath sounds Cardiovascular exam: PRESENT: +S1, +S2 GI/Abdominal exam: PRESENT: soft, other - PEG tube in place Neurological exam: PRESENT: alert, CN II-XII grossly intact Results Laboratory Results: 02/22/17 14:20 02/22/17 06:30 02/19/17 02/22/17 02/22/17 11:27 06:30 14:20 WBC 7.4 RBC 2.90 L Hgb 9.0 L Hct 26.3 L MCV 91 MCH 31.0 MCHC 34.2 RDW 15.5 H Plt Count 141 L Sodium 145.5 H 134.7 L Potassium 6.0 H* 4.7 Chloride 114 H 108 H Carbon Dioxide 22 24 Anion Gap 10 3 L BUN 62 H 40 H Creatinine 1.95 H 1.64 H Est GFR ( Amer) 40 L 49 L Est GFR (Non-Af Amer) 33 L 41 L Glucose 119 H 88 Calcium 10.5 H 8.9 02/18/17 02/18/17 02/18/17 15:35 15:35 23:34 Creatine Kinase < 20 L < 20 L CK-MB (CK-2) 0.71 02/18/17 02/19/17 02/19/17 23:34 07:39 07:39 Creatine Kinase < 20 L CK-MB (CK-2) 0.97 1.00 Impressions: Abdomen/Pelvis CT 02/18/17 00:00 IMPRESSION: 1. No evidence of small bowel obstruction. Postoperative changes include G-tube and colectomy. Ascites no longer appreciated. Acute Abdomen Series 02/18/17 05:11 IMPRESSION: Nonobstructive bowel gas pattern. Chest X-Ray 02/19/17 11:06 IMPRESSION: Right central line placement without pneumothorax. Appropriate location. Venous Doppler Study 02/21/17 00:00 IMPRESSION: NO EVIDENCE DVT OR SVT IN THE RIGHT ARM. Assessment & Plan - Diagnosis (1) Acute kidney injury Is this a current diagnosis for this admission?: Yes Plan: Continue intravenous isotonic saline (2) Hyperkalemia Is this a current diagnosis for this admission?: Yes (3) Hypernatremia Is this a current diagnosis for this admission?: Yes
[2017-02-22] MEDS: TOLTERODINE TARTRATE 1 MG TABLET PO SCH (22:28)
[2017-02-22] MEDS: ATORVASTATIN CALCIUM 10 MG TABLET PO SCH (22:28)
[2017-02-22] MEDS: AMLODIPINE BESYLATE 5 MG TABLET PO SCH (22:37)
[2017-02-23] MEDS: NORMAL SALINE 1000 ML 1,000 ML IV PRN ×2 (02:22→22:30)
[2017-02-23 05:32] LABS: ANION GAP 5 (5-19); BLOOD UREA NITROGEN 30 mg/dL (7-20); CALCIUM 9.1 mg/dL (8.4-10.2); CARBON DIOXIDE 21 mmol/L (22-30); CHLORIDE 112 mmol/L (98-107); CREATININE RESULT 1.47 mg/dL (0.52-1.25); GLUCOSE 93 mg/dL (75-110); POTASSIUM 4.6 mmol/L (3.6-5.0)
[2017-02-23] MEDS: HEPARIN SOD (PORCINE) 5,000 UNIT/ML 1 ML SYRINGE SUBCUT SCH ×3 (06:25→21:29)
[2017-02-23] MEDS: LANSOPRAZOLE 30 MG TAB.RAP.DR PO SCH (08:22)
[2017-02-23] MEDS: FOLIC ACID 1 MG TABLET PO SCH (10:08)
[2017-02-23] MEDS: MULTIVITAMIN TABLET PO SCH (10:08)
[2017-02-23] MEDS ORDERED: ACETAMINOPHEN 325 MG TABLET PO PRN (16:01)
[2017-02-23] MEDS ORDERED: ACETAMINOPHEN 325 MG TABLET ONE (16:06)
--- NOTE | 2017-02-23 20:25 | PDOC PROGRESS REPORT ---
Subjective Progress Note for:: 02/23/17 Subjective:: Patient was seen by the bedside, he be be transferred back to [facility] to continue rehabilitation the kidney function is improved Physical Exam Vital Signs: Temp Pulse Resp BP Pulse Ox 99.1 F 91 18 117/50 L 100 02/23/17 17:07 02/23/17 17:07 02/23/17 17:07 02/23/17 17:07 02/23/17 17:07 Intake & Output 02/22/17 02/23/17 02/24/17 06:59 06:59 06:59 Intake Total 2770 3883 1941 Output Total 1325 2775 1400 Balance 1445 1108 541 Weight 68.5 kg 68.1 kg General appearance: PRESENT: no acute distress Eye exam: PRESENT: PERRLA Respiratory exam: PRESENT: clear to auscultation annabel Cardiovascular exam: PRESENT: +S1, +S2 GI/Abdominal exam: PRESENT: soft Neurological exam: PRESENT: alert Results Laboratory Results: 02/22/17 14:20 02/23/17 04:32 02/23/17 04:32 Sodium 138.0 Potassium 4.6 Chloride 112 H Carbon Dioxide 21 L Anion Gap 5 BUN 30 H Creatinine 1.47 H Est GFR ( Amer) 56 L Est GFR (Non-Af Amer) 46 L Glucose 93 Calcium 9.1 02/18/17 02/18/17 02/18/17 15:35 15:35 23:34 Creatine Kinase < 20 L < 20 L CK-MB (CK-2) 0.71 02/18/17 02/19/17 02/19/17 23:34 07:39 07:39 Creatine Kinase < 20 L CK-MB (CK-2) 0.97 1.00 Impressions: Abdomen/Pelvis CT 02/18/17 00:00 IMPRESSION: 1. No evidence of small bowel obstruction. Postoperative changes include G-tube and colectomy. Ascites no longer appreciated. Acute Abdomen Series 02/18/17 05:11 IMPRESSION: Nonobstructive bowel gas pattern. Chest X-Ray 02/19/17 11:06 IMPRESSION: Right central line placement without pneumothorax. Appropriate location. Venous Doppler Study 02/21/17 00:00 IMPRESSION: NO EVIDENCE DVT OR SVT IN THE RIGHT ARM. Assessment & Plan - Diagnosis (1) Acute kidney injury Is this a current diagnosis for this admission?: Yes (2) Hyperkalemia Is this a current diagnosis for this admission?: Yes (3) Hypernatremia Is this a current diagnosis for this admission?: Yes
[2017-02-23] MEDS: AMLODIPINE BESYLATE 5 MG TABLET PO SCH (21:30)
[2017-02-23] MEDS: TOLTERODINE TARTRATE 1 MG TABLET PO SCH (21:31)
[2017-02-23] MEDS: ATORVASTATIN CALCIUM 10 MG TABLET PO SCH (21:31)
[2017-02-23] MEDS: ALPRAZOLAM 0.25 MG TABLET PO PRN (23:25)
[2017-02-24] MEDS: HEPARIN SOD (PORCINE) 5,000 UNIT/ML 1 ML SYRINGE SUBCUT SCH ×3 (06:32→22:13)
[2017-02-24 07:10] LABS: ANION GAP 6 (5-19); BLOOD UREA NITROGEN 23 mg/dL (7-20); CALCIUM 9.1 mg/dL (8.4-10.2); CARBON DIOXIDE 20 mmol/L (22-30); CHLORIDE 113 mmol/L (98-107); CREATININE RESULT 1.36 mg/dL (0.52-1.25); GLUCOSE 87 mg/dL (75-110); POTASSIUM 4.3 mmol/L (3.6-5.0); SODIUM 138.7 mmol/L (137-145)
[2017-02-24] MEDS: LANSOPRAZOLE 30 MG TAB.RAP.DR PO SCH (09:41)
[2017-02-24] MEDS: FOLIC ACID 1 MG TABLET PO SCH (09:42)
[2017-02-24] MEDS: MULTIVITAMIN TABLET PO SCH (09:43)
[2017-02-24] MEDS: NORMAL SALINE 1000 ML 1,000 ML IV PRN (09:47)
[2017-02-24] MEDS ORDERED: TAMSULOSIN HCL 0.4 MG CAP.SR.24H PO SCH (10:00)
--- NOTE | 2017-02-24 20:41 | PDOC TRANSFER SUMMARY ---
General - Admit/Disc Date/PCP Admission Date/Primary Care Provider: 02/18/17 14:44 TIA ASH MD Discharge Date: 02/24/17 - Discharge Diagnosis (1) Acute kidney injury Is this a current diagnosis for this admission?: Yes Summary: Resolved (2) Hyperkalemia Is this a current diagnosis for this admission?: Yes Summary: Resolved (3) Hypernatremia Is this a current diagnosis for this admission?: Yes Summary: Resolved (4) Benign prostatic hyperplasia Is this a current diagnosis for this admission?: Yes - Additional Information Discharge Diet: Regular Home Medications: Amlodipine Besylate [Norvasc 5 mg Tablet] 5 mg PO QHS 02/18/17 Lisinopril [Zestril] 20 mg PO DAILY 02/18/17 Multivitamin/Iron/Folic Acid [Centrum Adults Tablet] 1 tab PO DAILY 02/18/17 Pantoprazole Sodium [Protonix] 40 mg PO DAILY 02/18/17 Pravastatin Sodium [Pravachol] 40 mg PO DAILY 02/18/17 Tolterodine Tartrate [Detrol LA] 4 mg PO QHS 02/18/17 Acetaminophen [Tylenol 325 mg Tablet] 650 mg PO Q6HP PRN tablet 02/24/17 Finasteride [Proscar 5 mg Tablet] 5 mg PO DAILY #30 tablet 02/24/17 Folic Acid [Folvite 1 mg Tablet] 1 mg PO DAILY tablet 02/24/17 Tamsulosin HCl [Flomax 0.4 mg Cap.sr] 0.4 mg PO DAILY cap.sr.24h 02/24/17 History of Present Illness Admission Date/PCP: 02/18/17 14:44 TIA ASH MD History of Present Illness: GUSTAVO HEARN is a 81 year old male, 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 In the emergency room he was evaluated CAT scan of the abdomen and pelvis with contrast was done it showed no evidence of small bowel obstruction essentially it was a negative study other than enlarged prostate gland. Patient stated that whenever he uses the feeding tube for nutrition he will experience abdominal pain and he has been refusing tube feeds in the retirement before transfer to the emergency room. The metabolic profile showed severe hyperkalemia with serum potassium of 6.9 also found was acute kidney injury serum creatinine was 2.68 ,initially the potassium was 7.5 he was appropriately treated in the emergency room with calcium gluconate, 50% dextrose, Kayexalate despite this treatment the hyperkalemia persisted the hyperkalemia is probably due to transcellular shift of potassium. The serum lipase was also elevated at 823.4 both the CAT scan of the abdomen and pelvis did not show any inflammation of the pancreas. 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 He has multiple comorbid conditions including atrial fibrillation, hypertension, peripheral vascular disease hyperlipidemia the acute kidney injury is most likely prerenal due to dehydration Hospital Course Hospital Course: Patient was admitted because of acute kidney injury, hyperkalemia. The acute kidney injury was secondary to volume loss due to ileostomy output state. He has a history of total colectomy the hyperkalemia is most likely from transcellular shift of potassium due to acidosis and dehydration he was treated with Kayexalate without success, he required calcium gluconate, 50% dextrose with insulin. There was mild acidosis, he was treated with bicarbonate infusion , and also beta agonist with DuoNeb nebulizer, which all these modalities of treatment he was able to achieve potassium shift intracellularly. He was hydrated vigorously with fluid and acute kidney injury improved. He was seen by speech and evaluated and he was cleared to eat by mouth he has a PEG tube that was used initially but the tube feed was discontinued ultimately patient is now eating by mouth without any difficulty. He also had lower urinary tract symptoms, a digital rectal examination was done he was found to have enlarged prostate gland, he was started on Flomax and finasteride. He also had tracheostomy dysfunction, he was seen by the surgeon and this was adjusted Physical Exam Vital Signs: Temp Pulse Resp BP Pulse Ox 98.2 F 99 19 137/57 H 100 02/24/17 19:34 02/24/17 19:34 02/24/17 19:34 02/24/17 19:34 02/24/17 19:34 Intake & Output 02/23/17 02/24/17 02/25/17 06:59 06:59 06:59 Intake Total 3883 3156 1459 Output Total 2775 2900 2350 Balance 1108 256 -891 Weight 68.1 kg 66.4 kg Head exam: PRESENT: atraumatic, normocephalic Neck exam: PRESENT: tracheostomy Respiratory exam: PRESENT: clear to auscultation annabel Cardiovascular exam: PRESENT: RRR, +S1, +S2 Vascular exam: PRESENT: normal capillary refill GI/Abdominal exam: PRESENT: normal bowel sounds, soft Rectal exam: PRESENT: prostate enlargement Neurological exam: PRESENT: alert, CN II-XII grossly intact Skin exam: PRESENT: dry, intact, warm Results Laboratory Results: 02/22/17 14:20 02/24/17 06:35 02/24/17 06:35 Sodium 138.7 Potassium 4.3 Chloride 113 H Carbon Dioxide 20 L Anion Gap 6 BUN 23 H Creatinine 1.36 H Est GFR ( Amer) > 60 Est GFR (Non-Af Amer) 50 L Glucose 87 Calcium 9.1 02/18/17 02/18/17 02/18/17 15:35 15:35 23:34 Creatine Kinase < 20 L < 20 L CK-MB (CK-2) 0.71 02/18/17 02/19/17 02/19/17 23:34 07:39 07:39 Creatine Kinase < 20 L CK-MB (CK-2) 0.97 1.00 Impressions: Abdomen/Pelvis CT 02/18/17 00:00 IMPRESSION: 1. No evidence of small bowel obstruction. Postoperative changes include G-tube and colectomy. Ascites no longer appreciated. Acute Abdomen Series 02/18/17 05:11 IMPRESSION: Nonobstructive bowel gas pattern. Chest X-Ray 02/19/17 11:06 IMPRESSION: Right central line placement without pneumothorax. Appropriate location. Venous Doppler Study 02/21/17 00:00 IMPRESSION: NO EVIDENCE DVT OR SVT IN THE RIGHT ARM.
[2017-02-24] MEDS: ATORVASTATIN CALCIUM 10 MG TABLET PO SCH (22:10)
[2017-02-24] MEDS: TOLTERODINE TARTRATE 1 MG TABLET PO SCH (22:10)
[2017-02-24] MEDS: AMLODIPINE BESYLATE 5 MG TABLET PO SCH (22:11)
[2017-02-24 22:17] VITALS: BP 141/56
== END 2017-02-24 22:35 | DRG 683 ==
LOC: ER 04:19 → UNDOADMIN 12:19 → EH 12:19 → 3N 15:57
PROVIDERS: ADMIT Internal Medicine; ATTEND Internal Medicine
PROC: 02HV33Z Insertion of Infusion Device into Superior Vena Cava, Percutaneous Approach (ICD-10-PCS; principal; 2017-02-19)
PROC: 0B21XFZ Change Tracheostomy Device in Trachea, External Approach (ICD-10-PCS; 2017-02-21)
DX: N17.9 Acute kidney failure, unspecified (principal); E87.0 Hyperosmolality and hypernatremia; E87.5 Hyperkalemia; E86.0 Dehydration; Z43.0 Encounter for attention to tracheostomy; I48.91 Unspecified atrial fibrillation; I10 Essential (primary) hypertension; I73.9 Peripheral vascular disease, unspecified; K21.9 Gastro-esophageal reflux disease without esophagitis; E78.5 Hyperlipidemia, unspecified; N40.0 Benign prostatic hyperplasia without lower urinary tract symptoms; Z79.899 Other long term (current) drug therapy; Z93.1 Gastrostomy status; Z93.2 Ileostomy status; I25.2 Old myocardial infarction; Z90.49 Acquired absence of other specified parts of digestive tract; Z87.891 Personal history of nicotine dependence
CPT/HCPCS: 36415; 51702; 71010; 74022; 74176; 80048; 80053; 81001; 82550; 82553; 83036; 83690; 83735; 84100; 84439; 84443; 85025; 85027; 85610; 85730; 93005; 93010; 93971; 94640; 96361; 96365; 96375; 96376; 99291; G8978-GP; G8979-GP; G8996-GN; G8997-GN; J0610; J1642; J1644; J1815; J2405; J3490; J7030; J7060

== ENCOUNTER 2017-03-15 08:49 | Inpatient (IN) | payer MEDICARE, OTHER ==
[2017-03-15] MEDS: NORMAL SALINE 1000 ML 1,000 ML IV PRN ×3 (09:30→22:52)
[2017-03-15 09:37] LABS: VENOUS BLOOD BASE EXCESS -1.3 mmol/L; VENOUS BLOOD HCO3 25.9 mmol/L (20-32); VENOUS BLOOD PCO2 55.3 mmHg (35-63); VENOUS BLOOD PH 7.29 (7.30-7.42)
[2017-03-15 09:38] LABS: ABSOLUTE LYMPHOCYTES (AUTO) 1.2 10^3/uL (0.5-4.7); ABSOLUTE MONOCYTES (AUTO) 0.4 10^3/uL (0.1-1.4); ABSOLUTE NEUT (AUTO) 4.6 10^3/uL (1.7-8.2); BASOPHILS % (AUTO) 0.5 % (0-2); EOSINOPHILS % (AUTO) 0.7 % (0-6); HEMATOCRIT 31.1 % (37.9-51.0); HEMOGLOBIN 10.6 g/dL (13.5-17.0); HGB HCT DIFFERENCE 0.7; LYMPHOCYTES % (AUTO) 19.7 % (13-45); MEAN CORPUSCULAR HEMOGLOBIN 30.8 pg (27.0-33.4); MEAN CORPUSCULAR HGB CONC 34.2 g/dL (32.0-36.0); MEAN CORPUSCULAR VOLUME 90 fl (80-97); MONOCYTES % (AUTO) 5.6 % (3-13); RED BLOOD COUNT 3.46 10^6/uL (4.35-5.55); RED CELL DISTRIBUTION WIDTH 15.7 % (11.5-14.0); SEGMENTED NEUTROPHILS % (AUTO) 73.5 % (42-78); WHITE BLOOD COUNT 6.2 10^3/uL (4.0-10.5)
[2017-03-15 09:47] LABS: PROTHROMBIN TIME 12.8 SEC (11.4-15.4)
[2017-03-15 10:20] LABS: ALANINE AMINOTRANSFERASE 27 U/L (21-72); ALBUMIN 2.7 g/dL (3.5-5.0); ALKALINE PHOSPHATASE 89 U/L (38-126); ANION GAP 7 (5-19); ASPARTATE AMINO TRANSFERASE 18 U/L (17-59); BILIRUBIN,DIRECT 0.2 mg/dL (0.0-0.4); BILIRUBIN,TOTAL 0.2 mg/dL (0.2-1.3); BLOOD UREA NITROGEN 66 mg/dL (7-20); CALCIUM 9.8 mg/dL (8.4-10.2); CARBON DIOXIDE 23 mmol/L (22-30); CHLORIDE 103 mmol/L (98-107); CREATININE RESULT 3.17 mg/dL (0.52-1.25); GLUCOSE 114 mg/dL (75-110); POTASSIUM 5.6 mmol/L (3.6-5.0); SODIUM 133.4 mmol/L (137-145); TOTAL PROTEIN 5.3 g/dL (6.3-8.2)
--- NOTE | 2017-03-15 10:27 | RADIOLOGY REPORT (SQ) ---
EXAM DESCRIPTION: CHEST SINGLE VIEW COMPLETED DATE/TIME: 03/15/2017 9:51 am REASON FOR STUDY: sepsis COMPARISON: 02/19/2017 EXAM PARAMETERS: NUMBER OF VIEWS: One view. TECHNIQUE: Single frontal radiographic view of the chest acquired. RADIATION DOSE: NA LIMITATIONS: None. FINDINGS: LUNGS AND PLEURA: No opacities, masses or pneumothorax. No pleural effusion. MEDIASTINUM AND HILAR STRUCTURES: No masses. Contour normal. HEART AND VASCULAR STRUCTURES: Heart normal in size. Normal vasculature. BONES: No acute findings. HARDWARE: The tracheostomy tube remains place. A right subclavian line previously present is no long er present. OTHER: No other significant finding. IMPRESSION: NO ACUTE RADIOGRAPHIC FINDING IN THE CHEST. TECHNICAL DOCUMENTATION: JOB ID: [id number]
[2017-03-15] MEDS ORDERED: NORMAL SALINE 1000 ML 1,000 ML IV ONE ×2 (11:34)
--- NOTE | 2017-03-15 12:10 | ER Document Report ---
ED General - General Chief Complaint: Blood Pressure Problem Stated Complaint: BLOOD PRESSURE PROBLEMS Time Seen by Provider: 03/15/17 08:59 TRAVEL OUTSIDE OF THE [place] IN LAST 30 DAYS: No - HPI Patient complains to provider of: Hypotension Notes: Patient with multiple medical problems comes to the ER today for hypertension according to the group home notes patient has had hypertension for approximately 2 weeks patient is documented in the group home notes to have orthostasis as the patient would sit up and then passed out according to the group home nurse. Upon my evaluation patient does have hypertension however is alert and oriented normal mood state patient has no complaints except for difficulty in speaking from his tracheostomy. Patient has a history of having a tracheostomy patient has been seen multiple times with his complaint in the past. Otherwise denies any chest pain abdominal pain - Related Data Allergies/Adverse Reactions: No Known Allergies Allergy (Verified 12/16/16 11:33) Home Medications: Current Home Medications Acetaminophen [Tylenol 325 mg Tablet] 650 mg PO Q6HP PRN 03/15/17 [History] Amlodipine Besylate [Norvasc 5 mg Tablet] 5 mg PO QHS 03/15/17 [History] Finasteride [Proscar 5 mg Tablet] 5 mg PO DAILY 03/15/17 [History] Folic Acid [Folvite 1 mg Tablet] 1 mg PO DAILY 03/15/17 [History] Lisinopril [Zestril] 20 mg PO DAILY 03/15/17 [History] Multivit-Mins/Iron/Folic/Lycop [Centrum Ultra Men's Tablet] 1 tab PO DAILY 03/15 [History] Pantoprazole Sodium [Protonix] 40 mg PO DAILY 03/15/17 [History] Pravastatin Sodium [Pravachol] 40 mg PO DAILY 03/15/17 [History] Tamsulosin HCl [Flomax 0.4 mg Cap.sr] 0.4 mg PO DAILY 03/15/17 [History] Tolterodine Tartrate [Detrol LA] 4 mg PO QHS 03/15/17 [History] Past Medical History - Social History Smoking Status: Never Smoker Chew tobacco use (# tins/day): No Frequency of alcohol use: None Drug Abuse: None Family History: Reviewed & Not Pertinent, Malignancy - Colon cancer Patient has suicidal ideation: No Patient has homicidal ideation: No - Past Medical History Cardiac Medical History: Reports: Hx Atrial Fibrillation, Hx Congestive Heart Failure, Hx Heart Attack, Hx Hypercholesterolemia - ON MEDS, Hx Hypertension - ON MEDS Denies: Hx Coronary Artery Disease, Hx Peripheral Vascular Disease, Hx Heart Murmur Pulmonary Medical History: Neurological Medical History: Denies: Hx Seizures Renal/ Medical History: Reports: Hx Benign Prostatic Hyperplasia. Denies: Hx End Stage Renal Disease, Hx Kidney Stones, Hx Peritoneal Dialysis Malignancy Medical History: GI Medical History: Reports: Hx Gastroesophageal Reflux Disease. Denies: Hx Crohn's Disease, Hx Hepatitis, Hx Hiatal Hernia, Hx Irritable Bowel, Hx Liver Failure, Hx Ulcer Musculoskeltal Medical History: Infectious Medical History: Denies: Hx Hepatitis Past Surgical History: Reports: Hx Abdominal Surgery - ileostomy placement, Hx Bowel Surgery, Hx Cardiac Catheterization, Hx Carotid Endarterectomy - Right, Hx Cholecystectomy, Hx Ileostomy, Hx Urinary Tract Surgery - prostate, Other - Exploratory laparotomy with total colectomy and splenic biopsy,carotid enda. Denies: Hx Appendectomy, Hx Colostomy, Hx Coronary Artery Bypass Graft, Hx Gastric Bypass Surgery, Hx Herniorrhaphy, Hx Open Heart Surgery, Hx Pacemaker, Hx Tonsillectomy - Immunizations Hx Diphtheria, Pertussis, Tetanus Vaccination: Yes Hx Pneumococcal Vaccination: 06/12/12 Review of Systems - Review of Systems Constitutional: Other - Hypotension EENT: No symptoms reported Cardiovascular: No symptoms reported Respiratory: No symptoms reported Gastrointestinal: No symptoms reported Genitourinary: No symptoms reported Male Genitourinary: No symptoms reported Musculoskeletal: No symptoms reported Skin: No symptoms reported Hematologic/Lymphatic: No symptoms reported Neurological/Psychological: No symptoms reported Physical Exam - Vital signs Vitals: Resp 16 03/15/17 09:02 Interpretation: Hypotensive - General General appearance: Appears well, Alert - HEENT Head: Normocephalic, Atraumatic Eyes: Normal Pupils: PERRL Notes: Tracheostomy site in place no signs of infection - Respiratory Respiratory status: No respiratory distress Chest status: Nontender Breath sounds: Normal Chest palpation: Normal Notes: Healing site from triple-lumen removal no signs of infection right upper chest - Cardiovascular Rhythm: Regular Heart sounds: Normal auscultation Murmur: No - Abdominal Inspection: Normal Distension: No distension Bowel sounds: Normal Tenderness: Nontender Organomegaly: No organomegaly Notes: Feeding tube and colostomy in place no signs of infection - Back Back: Normal, Nontender - Extremities General upper extremity: Normal inspection, Nontender, Normal color, Normal ROM , Normal temperature General lower extremity: Normal inspection, Nontender, Normal color, Normal ROM , Normal temperature, Normal weight bearing. No: Kady's sign - Neurological Neuro grossly intact: Yes Cognition: Normal Orientation: AAOx4 Brian Coma Scale Eye Opening: Spontaneous [place] Coma Scale Verbal: Oriented [place] Coma Scale Motor: Obeys Commands [place] Coma Scale Total: 15 Speech: Normal Motor strength normal: LUE, RUE, LLE, RLE Sensory: Normal - Psychological Associated symptoms: Normal affect, Normal mood - Skin Skin Temperature: Warm Skin Moisture: Dry Skin Color: Normal Course - Re-evaluation Re-evalutation: 03/15/17 13:51 Urinalysis found returned showing UTI still hypotension more likely related to patient's dehydration status. We will treat urinary tract infection with Rocephin urinary culture ordered will discharge home 03/15/17 14:29 Patient coming in for hypertension. Patient's lab work shows elevated potassium EKG changes negative troponin patient does have some slight ST segment elevation in 2 however does not complain of any chest pain nothing patient has any acute coronary issues ongoing at this time is that patient has negative troponin. Patient's renal function is elevated patient looks to be severely dehydrated blood pressure improved with 3 L of fluid. While he was able to obtain a urine sample which does show UTI Rocephin was given more likely hypertension and renal failure due to dehydration and not infection. Discussed with primary care physician will admit the patient. Patient continues to complain about his tracheostomy highly recommend patient follow-up with ENT or surgery team for further evaluation is that it does not look patient requires a trach at this time - Vital Signs Vital signs: Temp Pulse Resp BP Pulse Ox 97.9 F 70 15 94/46 L 98 03/15/17 09:38 03/15/17 09:38 03/15/17 11:01 03/15/17 13:46 03/15/17 13:46 - Laboratory Result Diagrams: 03/15/17 09:12 03/15/17 09:12 Laboratory results interpreted by me: 03/15/17 03/15/17 03/15/17 09:12 09:12 09:12 RBC 3.46 L Hgb 10.6 L Hct 31.1 L RDW 15.7 H VBG pH Sodium 133.4 L Potassium 5.6 H BUN 66 H Creatinine 3.17 H Est GFR ( Amer) 23 L Est GFR (Non-Af Amer) 19 L Glucose 114 H Creatine Kinase < 20 L Total Protein 5.3 L Albumin 2.7 L Urine Protein Urine Blood Ur Leukocyte Esterase Urine Ascorbic Acid 03/15/17 03/15/17 09:22 12:38 RBC Hgb Hct RDW VBG pH 7.29 L Sodium Potassium BUN Creatinine Est GFR ( Amer) Est GFR (Non-Af Amer) Glucose Creatine Kinase Total Protein Albumin Urine Protein 30 H Urine Blood SMALL H Ur Leukocyte Esterase LARGE H Urine Ascorbic Acid 40 H Discharge - Discharge Clinical Impression: Hyperkalemia Acute renal failure Qualifiers: Acute renal failure type: unspecified Qualified Code(s): N17.9 - Acute kidney failure, unspecified Hypotension Qualifiers: Hypotension type: unspecified hypotension type Qualified Code(s): I95.9 - Hypotension, unspecified UTI (urinary tract infection) Qualifiers: Urinary tract infection type: site unspecified Hematuria presence: without hematuria Qualified Code(s): N39.0 - Urinary tract infection, site not specified Condition: Good Disposition: ADMITTED INPATIENT Admitting Provider: [facility] Admitted: Telemetry
[2017-03-15 13:29] LABS: APPEARANCE,URINE TURBID; BILIRUBIN,URINE NEGATIVE (NEGATIVE); GLUCOSE, URINE NEGATIVE (NEGATIVE); KETONES,URINE NEGATIVE (NEGATIVE); LEUKOCYTE ESTERASE,URINE LARGE (NEGATIVE); NITRITE,URINE NEGATIVE (NEGATIVE); PROTEIN,URINE 30 mg/dL (NEGATIVE); URINE SPECIFIC GRAVITY 1.005; UROBILINOGEN,URINE NEGATIVE mg/dL (<2.0)
[2017-03-15] MEDS ORDERED: CEFTRIAXONE 1 GM/D5W RTU 1 GM/50 ML RTUPB IV ONE (13:35)
[2017-03-15] MEDS ORDERED: INFLUENZA ADLT QUAD (36MOS+) 2017-18 VAC 0.5 ML SYR IM PRN (17:23)
[2017-03-15] MEDS ORDERED: ACETAMINOPHEN 325 MG TABLET PO PRN (18:06)
[2017-03-15] MEDS ORDERED: FOLIC PO SCH (18:15)
[2017-03-15] MEDS ORDERED: IRON PO SCH (18:15)
[2017-03-15] MEDS ORDERED: (PENDING PHARMACY ID) (Pravastatin Sodium [Pravachol] 40 MG) PO SCH (18:15)
[2017-03-15] MEDS ORDERED: LYCOP PO SCH (18:15)
[2017-03-15] MEDS ORDERED: MULTIVIT MINS PO SCH (18:15)
[2017-03-15] MEDS ORDERED: [UNRECOGNIZED DRUG - OTHER] PO SCH (18:15)
[2017-03-15] MEDS ORDERED: MULTIVITAMIN TABLET PO ONE (19:00)
[2017-03-15 19:11] LABS: PARTIAL THROMBOPLASTIN TIME 32.3 SEC (23.5-35.8); PROTHROMBIN TIME 13.8 SEC (11.4-15.4)
[2017-03-15 19:20] LABS: ALANINE AMINOTRANSFERASE 33 U/L (21-72); ALBUMIN 2.4 g/dL (3.5-5.0); ALKALINE PHOSPHATASE 80 U/L (38-126); AMYLASE 56 U/L (30-110); ANION GAP 6 (5-19); ASPARTATE AMINO TRANSFERASE 14 U/L (17-59); BILIRUBIN,DIRECT 0.2 mg/dL (0.0-0.4); BILIRUBIN,TOTAL 0.2 mg/dL (0.2-1.3); BLOOD UREA NITROGEN 57 mg/dL (7-20); CALCIUM 9.3 mg/dL (8.4-10.2); CARBON DIOXIDE 20 mmol/L (22-30); CHLORIDE 110 mmol/L (98-107); CREATININE RESULT 2.63 mg/dL (0.52-1.25); GLUCOSE 89 mg/dL (75-110); LIPASE 223.8 U/L (23-300); PHOSPHORUS 4.7 mg/dL (2.5-4.5); POTASSIUM 5.1 mmol/L (3.6-5.0); SODIUM 136.1 mmol/L (137-145); TOTAL PROTEIN 4.8 g/dL (6.3-8.2)
[2017-03-15] MEDS ORDERED: FOLIC ACID 1 MG TABLET PO ONE (19:30)
[2017-03-15 19:36] LABS: CREATINE KINASE MB 0.47 ng/mL (<4.55); TROPONIN I 0.019 ng/mL
[2017-03-15 19:47] LABS: THYROID STIMULATING HORMONE 1.88 uIU/mL (0.47-4.68)
[2017-03-15] MEDS ORDERED: FINASTERIDE 5 MG TABLET PO ONE (20:00)
[2017-03-15] MEDS ORDERED: TAMSULOSIN HCL 0.4 MG CAP.SR.24H PO ONE (20:00)
[2017-03-15] MEDS ORDERED: (PENDING PHARMACY ID) (Tolterodine Tartrate [Detrol La] 4 MG) PO SCH (22:00)
[2017-03-15] MEDS: HEPARIN SOD (PORCINE) 5,000 UNIT/ML 1 ML SYRINGE SUBCUT SCH (22:40)
[2017-03-15] MEDS: TOLTERODINE TARTRATE 1 MG TABLET PO SCH (22:42)
[2017-03-15] MEDS: ATORVASTATIN CALCIUM 10 MG TABLET PO SCH (22:43)
[2017-03-16 01:10] LABS: CREATINE KINASE MB 0.57 ng/mL (<4.55); TROPONIN I 0.016 ng/mL
[2017-03-16] MEDS: HEPARIN SOD (PORCINE) 5,000 UNIT/ML 1 ML SYRINGE SUBCUT SCH ×3 (05:14→21:24)
[2017-03-16 06:33] LABS: ABSOLUTE EOSINOPHILS # (AUTO) 0.1 10^3/uL (0.0-0.6); ABSOLUTE LYMPHOCYTES (AUTO) 1.3 10^3/uL (0.5-4.7); ABSOLUTE MONOCYTES (AUTO) 0.4 10^3/uL (0.1-1.4); EOSINOPHILS % (AUTO) 1.3 % (0-6); HEMATOCRIT 25.3 % (37.9-51.0); HEMOGLOBIN 8.7 g/dL (13.5-17.0); HGB HCT DIFFERENCE 0.8; LYMPHOCYTES % (AUTO) 27.8 % (13-45); MEAN CORPUSCULAR HGB CONC 34.4 g/dL (32.0-36.0); MEAN CORPUSCULAR VOLUME 90 fl (80-97); MONOCYTES % (AUTO) 7.6 % (3-13); RED BLOOD COUNT 2.81 10^6/uL (4.35-5.55); RED CELL DISTRIBUTION WIDTH 16.1 % (11.5-14.0); SEGMENTED NEUTROPHILS % (AUTO) 62.3 % (42-78); WHITE BLOOD COUNT 4.8 10^3/uL (4.0-10.5)
[2017-03-16 06:46] LABS: BLOOD UREA NITROGEN 50 mg/dL (7-20); CALCIUM 9.2 mg/dL (8.4-10.2); CHLORIDE 115 mmol/L (98-107); CHOLESTEROL 99.67 mg/dL (0-200); CREATININE RESULT 2.29 mg/dL (0.52-1.25); Direct HDL 22 mg/dL (>40); GLUCOSE 92 mg/dL (75-110); POTASSIUM 5.2 mmol/L (3.6-5.0); TRIGLYCERIDES 101 mg/dL (<150)
[2017-03-16 06:57] LABS: DIRECT LDL 62 mg/dL (<100)
[2017-03-16 06:58] LABS: CREATINE KINASE < 20 U/L (55-170); CREATINE KINASE MB 0.75 ng/mL (<4.55); TROPONIN I 0.019 ng/mL
[2017-03-16 07:08] LABS: ANION GAP 5 (5-19); CARBON DIOXIDE 19 mmol/L (22-30); SODIUM 138.5 mmol/L (137-145)
--- NOTE | 2017-03-16 09:14 | EKG REPORT ---
SEVERITY:- BORDERLINE ECG - SINUS RHYTHM BORDERLINE RIGHT AXIS DEVIATION BORDERLINE ST ELEVATION, INFERIOR LEADS : Confirmed by: Maryan Rees MD 16-Mar-2017 09:14:02
[2017-03-16] MEDS: TOLTERODINE TARTRATE 1 MG TABLET PO SCH ×2 (09:18→21:24)
[2017-03-16] MEDS: TAMSULOSIN HCL 0.4 MG CAP.SR.24H PO SCH (09:18)
[2017-03-16] MEDS: FOLIC ACID 1 MG TABLET PO SCH (09:18)
[2017-03-16] MEDS: MULTIVITAMIN TABLET PO SCH (09:18)
[2017-03-16] MEDS: FINASTERIDE 5 MG TABLET PO SCH (09:18)
[2017-03-16] MEDS: LANSOPRAZOLE 30 MG TAB.RAP.DR PO SCH (09:19)
[2017-03-16] MEDS: NORMAL SALINE 1000 ML 1,000 ML IV PRN (13:36)
[2017-03-16] MEDS: ATORVASTATIN CALCIUM 10 MG TABLET PO SCH (21:24)
--- NOTE | 2017-03-16 21:49 | PDOC H&P ---
History of Present Illness Admission Date/PCP: 03/15/17 18:02 History of Present Illness: GUSTAVO HEARN is a 82 year old male, Patient was just discharged from this hospital on 02/24/2017 when he presented with low blood pressure, acute kidney injury, hyperkalemia. 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 and he was being tubefed, he is now present in a similar fashion that he presented last time he was admitted with low blood pressure, acute kidney injury hyperkalemia and dehydration Past Medical History Cardiac Medical History: Reports: Atrial Fibrillation, Myocardial Infarction, Hyperlipidema - ON MEDS, Hypertension - ON MEDS Pulmonary Medical History: Malignancy Medical History: GI Medical History: Reports: Gastroesophageal Reflux Disease Musculoskeltal Medical History: Hematology: Reports: Anemia Past Surgical History Past Surgical History: Reports: Cardiac Catheterization, Carotid Endarterectomy - Right, Cholecystectomy, Ileostomy, Other - Exploratory laparotomy with total colectomy and splenic biopsy,carotid enda Social History Smoking Status: Former Smoker Frequency of Alcohol Use: Occasional Hx Recreational Drug Use: No Drugs: None Hx Prescription Drug Abuse: No - Advance Directive Resuscitation Status: Full Code Family History Family History: Reviewed & Not Pertinent, Malignancy - Colon cancer Parental Family History Reviewed: Yes Children Family History Reviewed: Yes Sibling(s) Family History Reviewed.: Yes Medication/Allergy Home Medications: Acetaminophen [Tylenol 325 mg Tablet] 650 mg PO Q6HP PRN 03/15/17 Amlodipine Besylate [Norvasc 5 mg Tablet] 5 mg PO QHS 03/15/17 Finasteride [Proscar 5 mg Tablet] 5 mg PO DAILY 03/15/17 Folic Acid [Folvite 1 mg Tablet] 1 mg PO DAILY 03/15/17 Lisinopril [Zestril] 20 mg PO DAILY 03/15/17 Multivit-Mins/Iron/Folic/Lycop [Centrum Ultra Men's Tablet] 1 tab PO DAILY 03/15 Pantoprazole Sodium [Protonix] 40 mg PO DAILY 03/15/17 Pravastatin Sodium [Pravachol] 40 mg PO DAILY 03/15/17 Tamsulosin HCl [Flomax 0.4 mg Cap.sr] 0.4 mg PO DAILY 03/15/17 Tolterodine Tartrate [Detrol LA] 4 mg PO QHS 03/15/17 Allergies/Adverse Reactions: No Known Allergies Allergy (Verified 12/16/16 11:33) Review of Systems Constitutional: PRESENT: fatigue, weakness Eyes: ABSENT: visual disturbances Ears: ABSENT: hearing changes Cardiovascular: ABSENT: chest pain, dyspnea on exertion, edema, orthropnea, palpitations Respiratory: ABSENT: cough, hemoptysis Gastrointestinal: ABSENT: abdominal pain, constipation, diarrhea, hematemesis, hematochezia, nausea, vomiting Genitourinary: ABSENT: dysuria, hematuria Musculoskeletal: ABSENT: joint swelling Integumentary: ABSENT: rash, wounds Neurological: ABSENT: abnormal gait, abnormal speech, confusion, dizziness, focal weakness, syncope Psychiatric: ABSENT: anxiety, depression, homidical ideation, suicidal ideation Endocrine: ABSENT: cold intolerance, heat intolerance, menstrual abnormalities, polydipsia, polyuria Hematologic/Lymphatic: ABSENT: easy bleeding, easy bruising, lymphadenopathy Physical Exam Vital Signs: Temp Pulse Resp BP Pulse Ox 97.8 F 78 20 125/52 L 99 03/16/17 21:05 03/16/17 21:05 03/16/17 21:05 03/16/17 21:05 03/16/17 21:05 Intake & Output 03/15/17 03/16/17 03/17/17 06:59 06:59 06:59 Intake Total 1540 1600 Output Total 700 475 Balance 840 1125 Weight 64.7 kg General appearance: PRESENT: mild distress Head exam: PRESENT: atraumatic, normocephalic Eye exam: PRESENT: conjunctiva pink, EOMI, PERRLA Ear exam: PRESENT: normal external ear exam Mouth exam: PRESENT: dry mucosa Neck exam: PRESENT: full ROM Cardiovascular exam: PRESENT: RRR, +S1, +S2 Vascular exam: PRESENT: normal capillary refill GI/Abdominal exam: PRESENT: normal bowel sounds, soft, other - ileostomy bag Rectal exam: PRESENT: deferred Neurological exam: PRESENT: alert, CN II-XII grossly intact Skin exam: PRESENT: dry, intact, warm Results Laboratory Results: 03/16/17 06:11 03/16/17 06:11 03/16/17 03/16/17 06:11 06:11 WBC 4.8 RBC 2.81 L Hgb 8.7 L Hct 25.3 L MCV 90 MCH 31.0 MCHC 34.4 RDW 16.1 H Plt Count 169 Seg Neutrophils % 62.3 Lymphocytes % 27.8 Monocytes % 7.6 Eosinophils % 1.3 Basophils % 1.0 Absolute Neutrophils 3.0 Absolute Lymphocytes 1.3 Absolute Monocytes 0.4 Absolute Eosinophils 0.1 Absolute Basophils 0.0 Sodium 138.5 Potassium 5.2 H Chloride 115 H Carbon Dioxide 19 L Anion Gap 5 BUN 50 H Creatinine 2.29 H Est GFR ( Amer) 33 L Est GFR (Non-Af Amer) 28 L Glucose 92 Calcium 9.2 Triglycerides 101 Cholesterol 99.67 LDL Cholesterol Direct 62 VLDL Cholesterol 20.0 HDL Cholesterol 22 L 03/15/17 03/15/17 03/16/17 18:40 18:40 00:32 Creatine Kinase < 20 L < 20 L CK-MB (CK-2) 0.47 Troponin I 0.019 03/16/17 03/16/17 03/16/17 00:32 06:11 06:11 Creatine Kinase < 20 L CK-MB (CK-2) 0.57 0.75 Troponin I 0.016 0.019 Impressions: Chest X-Ray 03/15/17 09:01 IMPRESSION: NO ACUTE RADIOGRAPHIC FINDING IN THE CHEST. Assessment & Plan - Diagnosis (2) Hypotension Qualifiers: Hypotension type: unspecified hypotension type Qualified Code(s): I95.9 - Hypotension, unspecified Is this a current diagnosis for this admission?: Yes (3) Hyperkalemia Is this a current diagnosis for this admission?: Yes (4) Hyperkalemia Is this a current diagnosis for this admission?: Yes (5) Acute kidney injury Is this a current diagnosis for this admission?: Yes - Plan Summary Plan Summary: Patient is admitted for management thank you
--- NOTE | 2017-03-16 22:44 | PDOC PROGRESS REPORT ---
Subjective Progress Note for:: 03/16/17 Subjective:: Patient is alert, he has no new complaints Physical Exam Vital Signs: Temp Pulse Resp BP Pulse Ox 97.8 F 78 20 125/52 L 99 03/16/17 21:05 03/16/17 21:05 03/16/17 21:05 03/16/17 21:05 03/16/17 21:05 Intake & Output 03/15/17 03/16/17 03/17/17 06:59 06:59 06:59 Intake Total 1540 1600 Output Total 700 475 Balance 840 1125 Weight 64.7 kg General appearance: PRESENT: no acute distress Eye exam: PRESENT: PERRLA Respiratory exam: PRESENT: clear to auscultation annabel Cardiovascular exam: PRESENT: +S1, +S2 GI/Abdominal exam: PRESENT: soft Neurological exam: PRESENT: alert Results Laboratory Results: 03/16/17 06:11 03/16/17 06:11 03/16/17 03/16/17 06:11 06:11 WBC 4.8 RBC 2.81 L Hgb 8.7 L Hct 25.3 L MCV 90 MCH 31.0 MCHC 34.4 RDW 16.1 H Plt Count 169 Seg Neutrophils % 62.3 Lymphocytes % 27.8 Monocytes % 7.6 Eosinophils % 1.3 Basophils % 1.0 Absolute Neutrophils 3.0 Absolute Lymphocytes 1.3 Absolute Monocytes 0.4 Absolute Eosinophils 0.1 Absolute Basophils 0.0 Sodium 138.5 Potassium 5.2 H Chloride 115 H Carbon Dioxide 19 L Anion Gap 5 BUN 50 H Creatinine 2.29 H Est GFR ( Amer) 33 L Est GFR (Non-Af Amer) 28 L Glucose 92 Calcium 9.2 Triglycerides 101 Cholesterol 99.67 LDL Cholesterol Direct 62 VLDL Cholesterol 20.0 HDL Cholesterol 22 L 03/15/17 03/15/17 03/16/17 18:40 18:40 00:32 Creatine Kinase < 20 L < 20 L CK-MB (CK-2) 0.47 Troponin I 0.019 03/16/17 03/16/17 03/16/17 00:32 06:11 06:11 Creatine Kinase < 20 L CK-MB (CK-2) 0.57 0.75 Troponin I 0.016 0.019 Impressions: Chest X-Ray 03/15/17 09:01 IMPRESSION: NO ACUTE RADIOGRAPHIC FINDING IN THE CHEST. Assessment & Plan - Diagnosis (2) Hypotension Qualifiers: Hypotension type: unspecified hypotension type Qualified Code(s): I95.9 - Hypotension, unspecified Is this a current diagnosis for this admission?: Yes (3) Hyperkalemia Is this a current diagnosis for this admission?: Yes (4) Acute kidney injury Is this a current diagnosis for this admission?: Yes
[2017-03-17 05:18] LABS: ABSOLUTE BASOPHILS # (AUTO) 0.1 10^3/uL (0.0-0.2); ABSOLUTE EOSINOPHILS # (AUTO) 0.1 10^3/uL (0.0-0.6); ABSOLUTE LYMPHOCYTES (AUTO) 1.1 10^3/uL (0.5-4.7); ABSOLUTE MONOCYTES (AUTO) 0.4 10^3/uL (0.1-1.4); BASOPHILS % (AUTO) 1.1 % (0-2); EOSINOPHILS % (AUTO) 2.3 % (0-6); HEMOGLOBIN 9.5 g/dL (13.5-17.0); HGB HCT DIFFERENCE 0.5; LYMPHOCYTES % (AUTO) 24.1 % (13-45); MEAN CORPUSCULAR HEMOGLOBIN 30.6 pg (27.0-33.4); MEAN CORPUSCULAR VOLUME 90 fl (80-97); MONOCYTES % (AUTO) 9.2 % (3-13); RED BLOOD COUNT 3.11 10^6/uL (4.35-5.55); RED CELL DISTRIBUTION WIDTH 15.8 % (11.5-14.0); SEGMENTED NEUTROPHILS % (AUTO) 63.3 % (42-78); WHITE BLOOD COUNT 4.7 10^3/uL (4.0-10.5)
[2017-03-17 05:37] LABS: ANION GAP 5 (5-19); BLOOD UREA NITROGEN 41 mg/dL (7-20); CALCIUM 9.7 mg/dL (8.4-10.2); CARBON DIOXIDE 20 mmol/L (22-30); CHLORIDE 116 mmol/L (98-107); CREATININE RESULT 1.97 mg/dL (0.52-1.25); GLUCOSE 106 mg/dL (75-110); POTASSIUM 4.8 mmol/L (3.6-5.0); SODIUM 141.2 mmol/L (137-145)
[2017-03-17] MEDS: HEPARIN SOD (PORCINE) 5,000 UNIT/ML 1 ML SYRINGE SUBCUT SCH ×3 (05:50→22:39)
[2017-03-17] MEDS: FOLIC ACID 1 MG TABLET PO SCH (09:34)
[2017-03-17] MEDS: LANSOPRAZOLE 30 MG TAB.RAP.DR PO SCH (09:35)
[2017-03-17] MEDS: MULTIVITAMIN TABLET PO SCH (09:36)
[2017-03-17] MEDS: FINASTERIDE 5 MG TABLET PO SCH ×2 (09:37→22:38)
[2017-03-17] MEDS: TOLTERODINE TARTRATE 1 MG TABLET PO SCH ×2 (09:37→22:38)
[2017-03-17] MEDS: TAMSULOSIN HCL 0.4 MG CAP.SR.24H PO SCH (09:37)
[2017-03-17] MEDS: ATORVASTATIN CALCIUM 10 MG TABLET PO SCH (23:16)
--- NOTE | 2017-03-17 23:58 | PDOC PROGRESS REPORT ---
Subjective Progress Note for:: 03/17/17 Subjective:: He was seen by the bedside, he was seen by speech, he is tolerating food by mouth very well Physical Exam Vital Signs: Temp Pulse Resp BP Pulse Ox 98.0 F 73 18 132/53 H 100 03/17/17 17:13 03/17/17 17:13 03/17/17 17:13 03/17/17 17:13 03/17/17 17:13 Intake & Output 03/16/17 03/17/17 03/18/17 06:59 06:59 06:59 Intake Total 1540 1960 2038 Output Total 700 1175 200 Balance 712 793 5711 Weight 64.7 kg 65.6 kg General appearance: PRESENT: no acute distress Eye exam: PRESENT: PERRLA Respiratory exam: PRESENT: clear to auscultation annabel Cardiovascular exam: PRESENT: +S1, +S2 GI/Abdominal exam: PRESENT: soft Neurological exam: PRESENT: alert Results Laboratory Results: 03/17/17 04:47 03/17/17 04:47 03/17/17 03/17/17 04:47 04:47 WBC 4.7 RBC 3.11 L Hgb 9.5 L Hct 28.0 L MCV 90 MCH 30.6 MCHC 34.0 RDW 15.8 H Plt Count 156 Seg Neutrophils % 63.3 Lymphocytes % 24.1 Monocytes % 9.2 Eosinophils % 2.3 Basophils % 1.1 Absolute Neutrophils 3.0 Absolute Lymphocytes 1.1 Absolute Monocytes 0.4 Absolute Eosinophils 0.1 Absolute Basophils 0.1 Sodium 141.2 Potassium 4.8 Chloride 116 H Carbon Dioxide 20 L Anion Gap 5 BUN 41 H Creatinine 1.97 H Est GFR ( Amer) 40 L Est GFR (Non-Af Amer) 33 L Glucose 106 Calcium 9.7 03/15/17 03/15/17 03/16/17 18:40 18:40 00:32 Creatine Kinase < 20 L < 20 L CK-MB (CK-2) 0.47 Troponin I 0.019 03/16/17 03/16/17 03/16/17 00:32 06:11 06:11 Creatine Kinase < 20 L CK-MB (CK-2) 0.57 0.75 Troponin I 0.016 0.019 Impressions: Chest X-Ray 03/15/17 09:01 IMPRESSION: NO ACUTE RADIOGRAPHIC FINDING IN THE CHEST. Assessment & Plan - Diagnosis (2) Hypotension Qualifiers: Hypotension type: unspecified hypotension type Qualified Code(s): I95.9 - Hypotension, unspecified Is this a current diagnosis for this admission?: Yes (3) Hyperkalemia Is this a current diagnosis for this admission?: Yes (4) Acute kidney injury Is this a current diagnosis for this admission?: Yes Plan: The acute kidney injury is improving
[2017-03-18] MEDS: NORMAL SALINE 1000 ML 1,000 ML IV PRN (00:06)
[2017-03-18 05:40] LABS: ABSOLUTE EOSINOPHILS # (AUTO) 0.1 10^3/uL (0.0-0.6); ABSOLUTE LYMPHOCYTES (AUTO) 1.2 10^3/uL (0.5-4.7); ABSOLUTE MONOCYTES (AUTO) 0.3 10^3/uL (0.1-1.4); ABSOLUTE NEUT (AUTO) 2.7 10^3/uL (1.7-8.2); BASOPHILS % (AUTO) 0.7 % (0-2); EOSINOPHILS % (AUTO) 1.2 % (0-6); HEMATOCRIT 25.7 % (37.9-51.0); HEMOGLOBIN 8.7 g/dL (13.5-17.0); HGB HCT DIFFERENCE 0.4; MEAN CORPUSCULAR HEMOGLOBIN 30.6 pg (27.0-33.4); MEAN CORPUSCULAR HGB CONC 33.9 g/dL (32.0-36.0); MEAN CORPUSCULAR VOLUME 90 fl (80-97); MONOCYTES % (AUTO) 7.4 % (3-13); RED BLOOD COUNT 2.85 10^6/uL (4.35-5.55); RED CELL DISTRIBUTION WIDTH 15.8 % (11.5-14.0); SEGMENTED NEUTROPHILS % (AUTO) 62.7 % (42-78); WHITE BLOOD COUNT 4.2 10^3/uL (4.0-10.5)
[2017-03-18 06:03] LABS: BLOOD UREA NITROGEN 29 mg/dL (7-20); CALCIUM 9.6 mg/dL (8.4-10.2); CHLORIDE 119 mmol/L (98-107); GLUCOSE 95 mg/dL (75-110)
[2017-03-18 06:11] LABS: ANION GAP 6 (5-19); CARBON DIOXIDE 18 mmol/L (22-30); SODIUM 142.7 mmol/L (137-145)
[2017-03-18] MEDS: HEPARIN SOD (PORCINE) 5,000 UNIT/ML 1 ML SYRINGE SUBCUT SCH ×3 (07:05→21:56)
[2017-03-18] MEDS: FOLIC ACID 1 MG TABLET PO SCH (09:01)
[2017-03-18] MEDS: MULTIVITAMIN TABLET PO SCH (09:01)
[2017-03-18] MEDS: LANSOPRAZOLE 30 MG TAB.RAP.DR PO SCH (09:01)
[2017-03-18] MEDS: TOLTERODINE TARTRATE 1 MG TABLET PO SCH ×2 (09:04→21:55)
--- NOTE | 2017-03-18 19:41 | PDOC PROGRESS REPORT ---
Subjective Progress Note for:: 03/18/17 Subjective:: No reported chest pain or difficulty with breathing. No fever or chills. Tolerating oral feeding. Ileostomy remain functional. Physical Exam Vital Signs: Temp Pulse Resp BP Pulse Ox 98.5 F 76 16 152/63 H 100 03/18/17 11:28 03/18/17 15:41 03/18/17 15:41 03/18/17 15:41 03/18/17 15:41 Intake & Output 03/17/17 03/18/17 03/19/17 06:59 06:59 06:59 Intake Total 1960 3488 2005 Output Total 1175 1000 Balance 785 2488 2005 Weight 65.6 kg 69.5 kg General appearance: PRESENT: no acute distress, cooperative Head exam: PRESENT: atraumatic, normocephalic Eye exam: PRESENT: conjunctiva pink, EOMI, PERRLA. ABSENT: scleral icterus Mouth exam: PRESENT: moist Respiratory exam: PRESENT: clear to auscultation annabel, decreased breath sounds Cardiovascular exam: PRESENT: RRR. ABSENT: diastolic murmur, rubs, systolic murmur GI/Abdominal exam: PRESENT: normal bowel sounds, soft, other - functioning ileostomy. ABSENT: distended, guarding, mass, organolmegaly, rebound, tenderness Extremities exam: ABSENT: pedal edema Neurological exam: PRESENT: alert, awake, oriented to person, oriented to place , oriented to time, oriented to situation, CN II-XII grossly intact. ABSENT: motor sensory deficit Psychiatric exam: PRESENT: appropriate affect, normal mood. ABSENT: homicidal ideation, suicidal ideation Skin exam: PRESENT: dry, intact, warm. ABSENT: cyanosis, rash Results Laboratory Results: 03/18/17 05:27 03/18/17 05:27 03/18/17 03/18/17 05:27 05:27 WBC 4.2 RBC 2.85 L Hgb 8.7 L Hct 25.7 L MCV 90 MCH 30.6 MCHC 33.9 RDW 15.8 H Plt Count 153 Seg Neutrophils % 62.7 Lymphocytes % 28.0 Monocytes % 7.4 Eosinophils % 1.2 Basophils % 0.7 Absolute Neutrophils 2.7 Absolute Lymphocytes 1.2 Absolute Monocytes 0.3 Absolute Eosinophils 0.1 Absolute Basophils 0.0 Sodium 142.7 Potassium 5.0 Chloride 119 H Carbon Dioxide 18 L Anion Gap 6 BUN 29 H Creatinine 1.60 H Est GFR ( Amer) 50 L Est GFR (Non-Af Amer) 42 L Glucose 95 Calcium 9.6 03/15/17 03/15/17 03/16/17 18:40 18:40 00:32 Creatine Kinase < 20 L < 20 L CK-MB (CK-2) 0.47 Troponin I 0.019 03/16/17 03/16/17 03/16/17 00:32 06:11 06:11 Creatine Kinase < 20 L CK-MB (CK-2) 0.57 0.75 Troponin I 0.016 0.019 Impressions: Chest X-Ray 03/15/17 09:01 IMPRESSION: NO ACUTE RADIOGRAPHIC FINDING IN THE CHEST. Assessment & Plan - Diagnosis (1) Acute renal failure Qualifiers: Acute renal failure type: unspecified Qualified Code(s): N17.9 - Acute kidney failure, unspecified Plan: Improving. See covering attending physician orders. (2) Hyperkalemia Is this a current diagnosis for this admission?: Yes Plan: See covering attending physician orders. Improving. (3) Hypotension Qualifiers: Hypotension type: unspecified hypotension type Qualified Code(s): I95.9 - Hypotension, unspecified Is this a current diagnosis for this admission?: Yes Plan: See covering attending physician orders. (4) BPH (benign prostatic hyperplasia) Qualifiers: Lower urinary tract symptom presence: unspecified whether lower urinary tract symptoms present Qualified Code(s): N40.0 - Benign prostatic hyperplasia without lower urinary tract symptoms Plan: See covering attending physician orders. (5) Hyperlipidemia, acquired Is this a current diagnosis for this admission?: Yes Plan: See covering attending physician orders. - Time Time Spent with patient: 25-34 minutes Medications reviewed and adjusted accordingly: Yes Anticipated discharge: Home with Homehealth Within: Other - Inpatient Certification Based on my medical assessment, after consideration of the patient's comorbidities, presenting symptoms, or acuity I expect that the services needed warrant INPATIENT care.: Yes I certify that my determination is in accordance with my understanding of Medicare's requirements for reasonable and necessary INPATIENT services [42 CFR 412.3e].: Yes Medical Necessity: Need Close Monitoring Due to Risk of Patient Decompensation, Need For IV Fluids, Need For Continuous Telemetry Monitoring, Risk of Complication if Not Cared For in Hospital 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
[2017-03-18] MEDS: ATORVASTATIN CALCIUM 10 MG TABLET PO SCH (21:54)
[2017-03-18] MEDS: FINASTERIDE 5 MG TABLET PO SCH (21:55)
[2017-03-19] MEDS: HEPARIN SOD (PORCINE) 5,000 UNIT/ML 1 ML SYRINGE SUBCUT SCH ×3 (05:56→21:34)
[2017-03-19 06:03] LABS: ABSOLUTE BASOPHILS # (AUTO) 0.1 10^3/uL (0.0-0.2); ABSOLUTE EOSINOPHILS # (AUTO) 0.1 10^3/uL (0.0-0.6); ABSOLUTE LYMPHOCYTES (AUTO) 1.2 10^3/uL (0.5-4.7); ABSOLUTE MONOCYTES (AUTO) 0.3 10^3/uL (0.1-1.4); ABSOLUTE NEUT (AUTO) 2.7 10^3/uL (1.7-8.2); BASOPHILS % (AUTO) 1.4 % (0-2); EOSINOPHILS % (AUTO) 1.6 % (0-6); HEMATOCRIT 26.4 % (37.9-51.0); HEMOGLOBIN 8.9 g/dL (13.5-17.0); HGB HCT DIFFERENCE 0.3; LYMPHOCYTES % (AUTO) 27.6 % (13-45); MEAN CORPUSCULAR HEMOGLOBIN 30.5 pg (27.0-33.4); MEAN CORPUSCULAR HGB CONC 33.7 g/dL (32.0-36.0); MEAN CORPUSCULAR VOLUME 90 fl (80-97); MONOCYTES % (AUTO) 6.5 % (3-13); RED BLOOD COUNT 2.92 10^6/uL (4.35-5.55); RED CELL DISTRIBUTION WIDTH 16.1 % (11.5-14.0); SEGMENTED NEUTROPHILS % (AUTO) 62.9 % (42-78); WHITE BLOOD COUNT 4.2 10^3/uL (4.0-10.5)
[2017-03-19 06:17] LABS: ALANINE AMINOTRANSFERASE 31 U/L (21-72); ALBUMIN 2.3 g/dL (3.5-5.0); ALKALINE PHOSPHATASE 75 U/L (38-126); ANION GAP 8 (5-19); ASPARTATE AMINO TRANSFERASE 17 U/L (17-59); BILIRUBIN,DIRECT 0.1 mg/dL (0.0-0.4); BILIRUBIN,TOTAL 0.1 mg/dL (0.2-1.3); BLOOD UREA NITROGEN 23 mg/dL (7-20); CALCIUM 9.5 mg/dL (8.4-10.2); CARBON DIOXIDE 18 mmol/L (22-30); CHLORIDE 120 mmol/L (98-107); CREATININE RESULT 1.42 mg/dL (0.52-1.25); GLUCOSE 96 mg/dL (75-110); POTASSIUM 4.7 mmol/L (3.6-5.0); SODIUM 145.9 mmol/L (137-145); TOTAL PROTEIN 4.6 g/dL (6.3-8.2)
[2017-03-19] MEDS: LANSOPRAZOLE 30 MG TAB.RAP.DR PO SCH (11:00)
[2017-03-19] MEDS: TOLTERODINE TARTRATE 1 MG TABLET PO SCH ×2 (11:00→21:34)
[2017-03-19] MEDS: MULTIVITAMIN TABLET PO SCH (11:00)
[2017-03-19] MEDS: FOLIC ACID 1 MG TABLET PO SCH (11:00)
--- NOTE | 2017-03-19 19:07 | PDOC PROGRESS REPORT ---
Subjective Progress Note for:: 03/19/17 Subjective:: Patient expressed concern about oral intake when he goes back to SNF due to facility speech therapist limiting his intake and resulted in his dehydration ad eventual admission. No reported chest pain or difficulty with breathing. No fever or chills. Tolerating oral feeding. Ileostomy remain functional. Physical Exam Vital Signs: Temp Pulse Resp BP Pulse Ox 99.5 F 68 18 152/66 H 99 03/19/17 15:38 03/19/17 15:38 03/19/17 15:38 03/19/17 11:10 03/19/17 15:38 Intake & Output 03/18/17 03/19/17 03/20/17 06:59 06:59 06:59 Intake Total 3488 3696 1440 Output Total 1000 100 Balance 2488 3596 1440 Weight 69.5 kg 69.1 kg Physical Exam: General appearance: PRESENT: no acute distress, cooperative Head exam: PRESENT: atraumatic, normocephalic Eye exam: PRESENT: conjunctiva pink, EOMI, PERRLA. ABSENT: scleral icterus Mouth exam: PRESENT: moist Respiratory exam: PRESENT: clear to auscultation annabel, decreased breath sounds Cardiovascular exam: PRESENT: RRR. ABSENT: diastolic murmur, rubs, systolic murmur GI/Abdominal exam: PRESENT: normal bowel sounds, soft, other - functioning ileostomy. ABSENT: distended, guarding, mass, organolmegaly, rebound, tenderness Extremities exam: ABSENT: pedal edema Neurological exam: PRESENT: alert, awake, oriented to person, oriented to place , oriented to time, oriented to situation, CN II-XII grossly intact. ABSENT: motor sensory deficit Psychiatric exam: PRESENT: appropriate affect, normal mood. ABSENT: homicidal ideation, suicidal ideation Skin exam: PRESENT: dry, intact, warm. ABSENT: cyanosis, rash Results Laboratory Results: 03/19/17 05:25 03/19/17 05:25 03/19/17 03/19/17 05:25 05:25 WBC 4.2 RBC 2.92 L Hgb 8.9 L Hct 26.4 L MCV 90 MCH 30.5 MCHC 33.7 RDW 16.1 H Plt Count 155 Seg Neutrophils % 62.9 Lymphocytes % 27.6 Monocytes % 6.5 Eosinophils % 1.6 Basophils % 1.4 Absolute Neutrophils 2.7 Absolute Lymphocytes 1.2 Absolute Monocytes 0.3 Absolute Eosinophils 0.1 Absolute Basophils 0.1 Sodium 145.9 H Potassium 4.7 Chloride 120 H Carbon Dioxide 18 L Anion Gap 8 BUN 23 H Creatinine 1.42 H Est GFR ( Amer) 58 L Est GFR (Non-Af Amer) 48 L Glucose 96 Calcium 9.5 Total Bilirubin 0.1 L AST 17 ALT 31 Alkaline Phosphatase 75 Total Protein 4.6 L Albumin 2.3 L 03/15/17 03/15/17 03/16/17 18:40 18:40 00:32 Creatine Kinase < 20 L < 20 L CK-MB (CK-2) 0.47 Troponin I 0.019 03/16/17 03/16/17 03/16/17 00:32 06:11 06:11 Creatine Kinase < 20 L CK-MB (CK-2) 0.57 0.75 Troponin I 0.016 0.019 Impressions: Chest X-Ray 03/15/17 09:01 IMPRESSION: NO ACUTE RADIOGRAPHIC FINDING IN THE CHEST. Assessment & Plan - Diagnosis (1) Acute renal failure Qualifiers: Acute renal failure type: unspecified Qualified Code(s): N17.9 - Acute kidney failure, unspecified (2) Hyperkalemia Is this a current diagnosis for this admission?: Yes (3) Hypotension Qualifiers: Hypotension type: unspecified hypotension type Qualified Code(s): I95.9 - Hypotension, unspecified Is this a current diagnosis for this admission?: Yes (4) BPH (benign prostatic hyperplasia) Qualifiers: Lower urinary tract symptom presence: unspecified whether lower urinary tract symptoms present Qualified Code(s): N40.0 - Benign prostatic hyperplasia without lower urinary tract symptoms (5) Hyperlipidemia, acquired Is this a current diagnosis for this admission?: Yes - Time Time Spent with patient: 25-34 minutes Anticipated discharge: SNF Within: Other - Inpatient Certification Based on my medical assessment, after consideration of the patient's comorbidities, presenting symptoms, or acuity I expect that the services needed warrant INPATIENT care.: Yes I certify that my determination is in accordance with my understanding of Medicare's requirements for reasonable and necessary INPATIENT services [42 CFR 412.3e].: Yes Medical Necessity: Need Close Monitoring Due to Risk of Patient Decompensation, Need For IV Fluids, Need For Continuous Telemetry Monitoring, Need for IV Antibiotics, Risk of Complication if Not Cared For in Hospital Post Hospital Care: D/C or Transfer Summary - Plan Summary Plan Summary: See covering attending physician orders. I will request speech pathologist evaluation for recommendation regarding swallowing ability upon discharge back to SNF.
[2017-03-19] MEDS: FINASTERIDE 5 MG TABLET PO SCH (21:34)
[2017-03-19] MEDS: ATORVASTATIN CALCIUM 10 MG TABLET PO SCH (21:34)
[2017-03-19] MEDS: NORMAL SALINE 1000 ML 1,000 ML IV PRN (23:29)
[2017-03-20] MEDS: HEPARIN SOD (PORCINE) 5,000 UNIT/ML 1 ML SYRINGE SUBCUT SCH ×3 (05:37→21:53)
[2017-03-20] MEDS: LANSOPRAZOLE 30 MG TAB.RAP.DR PO SCH (09:55)
[2017-03-20] MEDS: FOLIC ACID 1 MG TABLET PO SCH (09:55)
[2017-03-20] MEDS: MULTIVITAMIN TABLET PO SCH (09:55)
[2017-03-20] MEDS: TOLTERODINE TARTRATE 1 MG TABLET PO SCH ×2 (09:55→21:55)
--- NOTE | 2017-03-20 19:45 | PDOC PROGRESS REPORT ---
Subjective Progress Note for:: 03/20/17 Subjective:: Patient was seen by the bedside, urine culture grew Enterobacter species, he continues to eat by mouth he was seen by speech, modified barium swallow study was ordered. Physical Exam Vital Signs: Temp Pulse Resp BP Pulse Ox 97.6 F 77 16 150/66 H 100 03/20/17 15:39 03/20/17 15:39 03/20/17 15:39 03/20/17 15:39 03/20/17 15:39 Intake & Output 03/19/17 03/20/17 03/21/17 06:59 06:59 06:59 Intake Total 3696 4111 1798 Output Total 100 650 380 Balance 3596 3461 1418 Weight 69.1 kg 69.4 kg General appearance: PRESENT: no acute distress Eye exam: PRESENT: PERRLA Cardiovascular exam: PRESENT: +S1, +S2 GI/Abdominal exam: PRESENT: soft Neurological exam: PRESENT: alert Results Laboratory Results: 03/19/17 05:25 03/19/17 05:25 03/15/17 03/15/17 03/16/17 18:40 18:40 00:32 Creatine Kinase < 20 L < 20 L CK-MB (CK-2) 0.47 Troponin I 0.019 03/16/17 03/16/17 03/16/17 00:32 06:11 06:11 Creatine Kinase < 20 L CK-MB (CK-2) 0.57 0.75 Troponin I 0.016 0.019 Impressions: Chest X-Ray 03/15/17 09:01 IMPRESSION: NO ACUTE RADIOGRAPHIC FINDING IN THE CHEST. Assessment & Plan - Diagnosis (1) Acute kidney injury Is this a current diagnosis for this admission?: Yes (2) Hypotension Qualifiers: Hypotension type: unspecified hypotension type Qualified Code(s): I95.9 - Hypotension, unspecified Is this a current diagnosis for this admission?: Yes (3) Hyperkalemia Is this a current diagnosis for this admission?: Yes (4) Acute kidney injury Is this a current diagnosis for this admission?: Yes (5) Urinary tract infection Qualifiers: Urinary tract infection type: site unspecified Hematuria presence: without hematuria Qualified Code(s): N39.0 - Urinary tract infection, site not specified Is this a current diagnosis for this admission?: Yes Plan: He has UTI due to Enterobacter species, he is started on Levaquin
[2017-03-20] MEDS: NORMAL SALINE 1000 ML 1,000 ML IV PRN (19:55)
[2017-03-20 20:57] LABS: APPEARANCE,URINE CLOUDY; BILIRUBIN,URINE NEGATIVE (NEGATIVE); GLUCOSE, URINE NEGATIVE (NEGATIVE); KETONES,URINE NEGATIVE (NEGATIVE); LEUKOCYTE ESTERASE,URINE LARGE (NEGATIVE); NITRITE,URINE NEGATIVE (NEGATIVE); PROTEIN,URINE 30 mg/dL (NEGATIVE); URINE SPECIFIC GRAVITY 1.006; UROBILINOGEN,URINE NEGATIVE mg/dL (<2.0)
[2017-03-20] MEDS ORDERED: LEVOFLOXACIN 750 MG/D5W RTU 750 MG/150 ML RTUPB IV ONE (21:00)
[2017-03-20] MEDS: ATORVASTATIN CALCIUM 10 MG TABLET PO SCH (21:55)
[2017-03-20] MEDS: FINASTERIDE 5 MG TABLET PO SCH (21:55)
[2017-03-21] MEDS: HEPARIN SOD (PORCINE) 5,000 UNIT/ML 1 ML SYRINGE SUBCUT SCH ×3 (05:55→23:00)
[2017-03-21] MEDS: NORMAL SALINE 1000 ML 1,000 ML IV PRN ×2 (05:55→18:21)
[2017-03-21] MEDS: TOLTERODINE TARTRATE 1 MG TABLET PO SCH ×2 (10:25→23:00)
[2017-03-21] MEDS: LANSOPRAZOLE 30 MG TAB.RAP.DR PO SCH (10:25)
[2017-03-21] MEDS: FOLIC ACID 1 MG TABLET PO SCH (10:25)
[2017-03-21] MEDS: MULTIVITAMIN TABLET PO SCH (10:25)
[2017-03-21] MEDS: LEVOFLOXACIN 750 MG/D5W RTU 750 MG/150 ML RTUPB IV SCH (10:25)
--- NOTE | 2017-03-21 18:15 | ST Inp Modified Barium Swallow ---
Medical Diagnosis - Medical Diagnoses Medical Diagnosis Description & ICD-10 Code(s): dysphagia, R13.10 Inpatient MBS - General Date: 03/21/17 - History History Obtained From: Other - EMR -: Medical - Patient seen for previous admission. Patient was previously placed on puree diet and thin liquids. Made NPO when discharged back to facility, citing aspiration risk. Patient has PEG tube, but not utilizing in hospital currently, physician placed patient back on puree thin liquid diet. Medications: Medications Reviewed Allergies: No known allergies - Subjective Current Nutritional Means: PEG, PO Current PO Diet: Pureed Current Symptoms: Aspiration Pain: 0/5 - Objective Assessment: Upright, Left Lateral - Food Trials Food Trials Used: Thin liquids, Honey-thickened liquids, Encinal thick liquids, Pureed The Patient: fed by ST, via spoon - Assessment Labial Function: Within Normal Limits Lingual Function: Within Normal Limits Mandibular Function: Within Normal Limits Laryngeal Function: Weak Cough - Pharyngeal Stage Initiation of Pharyngeal Stage: Normal Decreased Laryngeal Elevation: Yes - significant Reduced Velo-Pharyngeal Closure: no Reduced Pressure Generation: Yes Reduced Tongue Base Retraction: No Pre-Swallowing Pooling in Valleculae: Mild Pre-Swallowing Pooling in Pyriforms: None Reduced Thyro-Hyiod Approximation: Yes - moderate Reduced Epiglottic Excursion: Yes - mild Post Swallow Residuals in Valleculae: Moderate Post Swallow Residuals in Pyriforms: Mild - Impression/Summary Laryngeal Penetration: Yes, Deep, Silent, during swallow - on thin liquids and nectar Tracheal Aspiration: yes, silent, during swallow - on thin liquids Productive Cough: No Effective Clearing: no Effective Compensatory Strategies: throat clear & reswallow Patient Presents With: Pharyngeal stage dysph., Severe Risk of Aspiration: Moderate Risk of Nutritional Compromise: WNL Risk Due To: aspiration of thin liquids, deep penetration of nectar - Recommendations NPO: no Solid Diet Recommendations: Pureed Liquid Diet Recommendations: Honey-Thick Strict Aspitarion Precautions: Yes Dysphagia Therapy with POULTRY HANGER: Yes, Inpatient Recommended Techniques: Fully Upright During Meal, Dry Swallow After Bite, Small Bites and Sips - Time Total Time: 30 Total Timed Minutes: 30 Charge G Code? - - -: Yes ST [facility] Impairment Category - Rationale Based On Rationale Based On: Func. Asses. Tool Results - MBSS - Swallowing Current G8996: CK 40-59% Impaired Goal G8997: CJ 20-39% Impaired
--- NOTE | 2017-03-21 19:29 | RADIOLOGY REPORT (SQ) ---
EXAM DESCRIPTION: RADHA SWALLOW COMPLETED DATE/TIME: 03/21/2017 9:25 am REASON FOR STUDY: r/o aspiration for safe PO intake COMPARISON: None. TECHNIQUE: Videofluoroscopic swallowing examination was performed in conjunction with speech patholo gy. Videofluoroscopic imaging was obtained and reviewed and these are the findings: RADIATION DOSE: Fluoro time 1.47 minutes 1 images saved to PACS. LIMITATIONS: None FINDINGS: The patient was brought into the fluoro room and placed upright on a modified barium swall ow chair. The patient was then given multiple consistencies mixed with barium to swallow under live fluoroscopic video guidance. According to the Speech Pathologist there was aspiration seen with thin barium. Laryngeal penetration was noted with nectar thick consistencies. Significant residuals wer e seen in the vallecula. Please refer to the speech pathology report for further details. IMPRESSION: ASPIRATION SEEN WITH THIN BARIUM. LARYNGEAL PENETRATION WITH NECTAR THICK CONSISTENCY.P LEASE SEE SPEECH PATHOLOGIST REPORT FOR OTHER FINDINGS AND RECOMMENDATIONS. COMMENT: NONE Quality ID 145: Final reports for procedures using fluoroscopy that document radiation exposure vicki oniel, or exposure time and number of fluorographic images (if radiation exposure indices are not avail able) TECHNICAL DOCUMENTATION: JOB ID: [id number] [employer]- All Rights Reserved
--- NOTE | 2017-03-21 21:15 | PDOC PROGRESS REPORT ---
Subjective Progress Note for:: 03/21/17 Subjective:: He had modified barium swallow, he was seen by speech and thickened honey consistency diet recommended. Getting blood drawn for lab work today was a challenge, patient refused blood drawn. Physical Exam Vital Signs: Temp Pulse Resp BP Pulse Ox 98.1 F 83 14 144/63 H 99 03/21/17 19:30 03/21/17 19:30 03/21/17 19:30 03/21/17 19:30 03/21/17 19:30 Intake & Output 03/20/17 03/21/17 03/22/17 06:59 06:59 06:59 Intake Total 4111 3639 1676 Output Total 650 630 Balance 3461 3009 1676 Weight 69.4 kg 69.5 kg General appearance: PRESENT: no acute distress Eye exam: PRESENT: PERRLA Neck exam: PRESENT: tracheostomy Respiratory exam: PRESENT: clear to auscultation annabel Cardiovascular exam: PRESENT: +S1, +S2 Results Laboratory Results: 03/19/17 05:25 03/19/17 05:25 03/15/17 03/15/17 03/16/17 18:40 18:40 00:32 Creatine Kinase < 20 L < 20 L CK-MB (CK-2) 0.47 Troponin I 0.019 03/16/17 03/16/17 03/16/17 00:32 06:11 06:11 Creatine Kinase < 20 L CK-MB (CK-2) 0.57 0.75 Troponin I 0.016 0.019 Impressions: Chest X-Ray 03/15/17 09:01 IMPRESSION: NO ACUTE RADIOGRAPHIC FINDING IN THE CHEST. Modified Barium Swallow 03/21/17 00:00 IMPRESSION: ASPIRATION SEEN WITH THIN BARIUM. LARYNGEAL PENETRATION WITH NECTAR THICK CONSISTENCY.PLEASE SEE SPEECH PATHOLOGIST REPORT FOR OTHER FINDINGS AND RECOMMENDATIONS. Assessment & Plan - Diagnosis (1) Acute kidney injury Is this a current diagnosis for this admission?: Yes (2) Hypotension Qualifiers: Hypotension type: unspecified hypotension type Qualified Code(s): I95.9 - Hypotension, unspecified Is this a current diagnosis for this admission?: Yes (3) Hyperkalemia Is this a current diagnosis for this admission?: Yes (4) Acute kidney injury Is this a current diagnosis for this admission?: Yes (5) Urinary tract infection Qualifiers: Urinary tract infection type: site unspecified Hematuria presence: without hematuria Qualified Code(s): N39.0 - Urinary tract infection, site not specified Is this a current diagnosis for this admission?: Yes - Plan Summary Plan Summary: Continue present care
[2017-03-21] MEDS: ATORVASTATIN CALCIUM 10 MG TABLET PO SCH (23:00)
[2017-03-21] MEDS: FINASTERIDE 5 MG TABLET PO SCH (23:01)
[2017-03-22] MEDS: NORMAL SALINE 1000 ML 1,000 ML IV PRN (05:46)
[2017-03-22] MEDS: HEPARIN SOD (PORCINE) 5,000 UNIT/ML 1 ML SYRINGE SUBCUT SCH ×2 (05:47→13:43)
[2017-03-22 06:21] LABS: ABSOLUTE LYMPHOCYTES (AUTO) 1.1 10^3/uL (0.5-4.7); ABSOLUTE MONOCYTES (AUTO) 0.3 10^3/uL (0.1-1.4); ABSOLUTE NEUT (AUTO) 2.9 10^3/uL (1.7-8.2); BASOPHILS % (AUTO) 0.8 % (0-2); EOSINOPHILS % (AUTO) 0.8 % (0-6); HEMATOCRIT 25.3 % (37.9-51.0); HGB HCT DIFFERENCE 1.7; LYMPHOCYTES % (AUTO) 25.9 % (13-45); MEAN CORPUSCULAR HEMOGLOBIN 31.5 pg (27.0-33.4); MEAN CORPUSCULAR HGB CONC 35.8 g/dL (32.0-36.0); MEAN CORPUSCULAR VOLUME 88 fl (80-97); MONOCYTES % (AUTO) 7.5 % (3-13); RED BLOOD COUNT 2.87 10^6/uL (4.35-5.55); RED CELL DISTRIBUTION WIDTH 15.6 % (11.5-14.0); WHITE BLOOD COUNT 4.4 10^3/uL (4.0-10.5)
[2017-03-22 06:39] LABS: ALBUMIN 2.2 g/dL (3.5-5.0); ANION GAP 7 (5-19); BLOOD UREA NITROGEN 16 mg/dL (7-20); CALCIUM 9.3 mg/dL (8.4-10.2); CARBON DIOXIDE 20 mmol/L (22-30); CHLORIDE 117 mmol/L (98-107); CREATININE RESULT 1.39 mg/dL (0.52-1.25); GLUCOSE 97 mg/dL (75-110); POTASSIUM 3.7 mmol/L (3.6-5.0); SODIUM 144.1 mmol/L (137-145); TOTAL PROTEIN 4.4 g/dL (6.3-8.2)
[2017-03-22 06:40] LABS: ALANINE AMINOTRANSFERASE 36 U/L (21-72); ALKALINE PHOSPHATASE 63 U/L (38-126); ASPARTATE AMINO TRANSFERASE 15 U/L (17-59); BILIRUBIN,DIRECT 0.2 mg/dL (0.0-0.4); BILIRUBIN,TOTAL 0.2 mg/dL (0.2-1.3)
[2017-03-22] MEDS: TOLTERODINE TARTRATE 1 MG TABLET PO SCH (11:22)
[2017-03-22] MEDS: LANSOPRAZOLE 30 MG TAB.RAP.DR PO SCH (11:22)
[2017-03-22] MEDS: FOLIC ACID 1 MG TABLET PO SCH (11:22)
[2017-03-22] MEDS: LEVOFLOXACIN 750 MG/D5W RTU 750 MG/150 ML RTUPB IV SCH (11:23)
[2017-03-22] MEDS: MULTIVITAMIN TABLET PO SCH (11:23)
--- NOTE | 2017-03-22 14:56 | PDOC TRANSFER SUMMARY ---
General - Admit/Disc Date/PCP Admission Date/Primary Care Provider: 03/15/17 18:02 Discharge Date: 03/22/17 - Discharge Diagnosis (1) Acute kidney injury Is this a current diagnosis for this admission?: Yes (2) Hypotension Is this a current diagnosis for this admission?: Yes (3) Hyperkalemia Is this a current diagnosis for this admission?: Yes (4) Urinary tract infection Is this a current diagnosis for this admission?: Yes - Additional Information Resuscitation Status: Full Code Discharge Diet: Other (Comments) - Thickened to honey consistency food Discharge Activity: Activity As Tolerated Home Medications: Acetaminophen [Tylenol 325 mg Tablet] 650 mg PO Q6HP PRN 03/15/17 Amlodipine Besylate [Norvasc 5 mg Tablet] 5 mg PO QHS 03/15/17 Finasteride [Proscar 5 mg Tablet] 5 mg PO DAILY 03/15/17 Folic Acid [Folvite 1 mg Tablet] 1 mg PO DAILY 03/15/17 Multivit-Mins/Iron/Folic/Lycop [Centrum Ultra Men's Tablet] 1 tab PO DAILY 03/15 Pravastatin Sodium [Pravachol] 40 mg PO QHS 03/15/17 Tolterodine Tartrate [Detrol LA] 4 mg PO QHS 03/15/17 History of Present Illness Admission Date/PCP: 03/15/17 18:02 History of Present Illness: GUSTAVO HEARN is a 82 year old male, Patient was just discharged from this hospital on 02/24/2017 when he presented with low blood pressure, acute kidney injury, hyperkalemia. 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 and he was being tubefed, he is now present in a similar fashion that he presented last time he was admitted with low blood pressure, acute kidney injury hyperkalemia and dehydration Hospital Course Hospital Course: Patient was admitted for the management of hypotension, acute kidney injury, hyperkalemia, UTI due to Enterobacter species. He was treated with IV fluid hydration with near normalization of the acute kidney injury and the low blood pressure. He was seen by speech and he underwent full speech evaluation including modified barium swallow study, patient was able to eat by mouth throughout hospital stay and the recommendation is that patient should eat thickened honey consistency food and there is no need for him to be n.p.o. [facility] should make arrangements for patient to see GI to have the PEG tube removed. Urine culture grew Enterobacter cloace sensitive to Levaquin. The plan is to discharge patient back to [facility] to continue physical therapy before discharge home. Physical Exam Vital Signs: Temp Pulse Resp BP Pulse Ox 98.3 F 83 22 H 165/73 H 100 03/22/17 11:27 03/22/17 11:27 03/22/17 11:27 03/22/17 11:27 03/22/17 11:27 Intake & Output 03/21/17 03/22/17 03/23/17 06:59 06:59 06:59 Intake Total 3639 2831 268 Output Total 630 400 153 Balance 3009 2431 115 Weight 69.5 kg 72 kg General appearance: PRESENT: no acute distress Eye exam: PRESENT: PERRLA Respiratory exam: PRESENT: clear to auscultation annabel Cardiovascular exam: PRESENT: RRR Pulses: PRESENT: normal dorsalis pedis pul Vascular exam: PRESENT: normal capillary refill GI/Abdominal exam: PRESENT: normal bowel sounds, soft Rectal exam: PRESENT: deferred Extremities exam: PRESENT: full ROM. ABSENT: calf tenderness, clubbing, pedal edema Neurological exam: PRESENT: alert, awake, oriented to person, oriented to place , oriented to time, oriented to situation, CN II-XII grossly intact. ABSENT: motor sensory deficit Psychiatric exam: PRESENT: appropriate affect, normal mood. ABSENT: homicidal ideation, suicidal ideation Skin exam: PRESENT: dry, intact, warm. ABSENT: cyanosis, rash Results Laboratory Results: 03/22/17 05:58 03/22/17 05:58 03/22/17 03/22/17 05:58 05:58 WBC 4.4 RBC 2.87 L Hgb 9.0 L Hct 25.3 L MCV 88 MCH 31.5 MCHC 35.8 RDW 15.6 H Plt Count 125 L Seg Neutrophils % 65.0 Lymphocytes % 25.9 Monocytes % 7.5 Eosinophils % 0.8 Basophils % 0.8 Absolute Neutrophils 2.9 Absolute Lymphocytes 1.1 Absolute Monocytes 0.3 Absolute Eosinophils 0.0 Absolute Basophils 0.0 Sodium 144.1 Potassium 3.7 Chloride 117 H Carbon Dioxide 20 L Anion Gap 7 BUN 16 Creatinine 1.39 H Est GFR ( Amer) 59 L Est GFR (Non-Af Amer) 49 L Glucose 97 Calcium 9.3 Total Bilirubin 0.2 AST 15 L ALT 36 Alkaline Phosphatase 63 Total Protein 4.4 L Albumin 2.2 L 03/15/17 03/15/17 03/16/17 18:40 18:40 00:32 Creatine Kinase < 20 L < 20 L CK-MB (CK-2) 0.47 Troponin I 0.019 03/16/17 03/16/17 03/16/17 00:32 06:11 06:11 Creatine Kinase < 20 L CK-MB (CK-2) 0.57 0.75 Troponin I 0.016 0.019 Impressions: Chest X-Ray 03/15/17 09:01 IMPRESSION: NO ACUTE RADIOGRAPHIC FINDING IN THE CHEST. Modified Barium Swallow 03/21/17 00:00 IMPRESSION: ASPIRATION SEEN WITH THIN BARIUM. LARYNGEAL PENETRATION WITH NECTAR THICK CONSISTENCY.PLEASE SEE SPEECH PATHOLOGIST REPORT FOR OTHER FINDINGS AND RECOMMENDATIONS. Plan Discharge Plan: Patient to be referred to GI to have PEG tube removed Patient should be fed by mouth with thickened honey consistency food
[2017-03-22 17:50] VITALS: BP 132/53
[2017-03-24] MEDS ORDERED: LEVOFLOXACIN 750 MG TABLET PO SCH (12:00)
== END 2017-03-22 21:30 | DRG 683 ==
LOC: ER 08:49 → UNDOADMIN 12:45 → EH 12:45 → 3S 14:28
PROVIDERS: ADMIT Internal Medicine; ATTEND Internal Medicine
PROC: 3E0234Z Introduction of Serum, Toxoid and Vaccine into Muscle, Percutaneous Approach (ICD-10-PCS; principal; 2017-03-22)
DX: N17.9 Acute kidney failure, unspecified (principal); N39.0 Urinary tract infection, site not specified; I95.9 Hypotension, unspecified; E87.5 Hyperkalemia; I48.0 Paroxysmal atrial fibrillation; I50.9 Heart failure, unspecified; I11.0 Hypertensive heart disease with heart failure; E78.5 Hyperlipidemia, unspecified; N40.0 Benign prostatic hyperplasia without lower urinary tract symptoms; K21.9 Gastro-esophageal reflux disease without esophagitis; B96.89 Other specified bacterial agents as the cause of diseases classified elsewhere; I25.2 Old myocardial infarction; Z93.0 Tracheostomy status; Z87.891 Personal history of nicotine dependence; Z23 Encounter for immunization; Z93.2 Ileostomy status
CPT/HCPCS: 36415; 71010; 74230; 80048; 80053; 80061; 81001; 82140; 82150; 82550; 82553; 82803; 83036; 83605; 83690; 83735; 84100; 84439; 84443; 84484; 85025; 85610; 85730; 87040; 87086; 87088; 87186; 90686; 93005; 93010; 96360; 99291; G8978-GP; G8979-GP; G8996-GN; G8997-GN; J0696; J1644; J1956; J7030

== ENCOUNTER → 2018-05-08 | Outpatient (CLI) | payer MEDICARE, OTHER ==
--- NOTE | 2018-05-08 11:36 | RADIOLOGY REPORT (SQ) ---
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 TECHNIQUE: Following retrograde filling of the colon Virgie pouch with Gastrografin and water, flu oroscopic spot and overhead imaging of the colon was obtained and saved to PACS. LIMITATIONS: None. FINDINGS: [employer] Gar[employer] Manager film demonstrates a right lower quadrant ostomy. Normal bowel gas pattern. Clips r ight upper quadrant post cholecystectomy. A [address] [place] was placed through the patient's anus into the rectum, and the balloon inflated. Juanita gan has an anal stricture, barely able to accommodate the [address]es catheter. Retrograde filling of the Virgie pouch demonstrates a distended pouch, 10 to 14 cm in diameter, ext ending up to the L5-S1 disc space. No polyps or masses in the pouch. However, there was a large day unt of retained fluid/mucous like material in the pouch which diluted the contrast. There is no communication between the Virgie pouch and urinary bladder. To dilute contrast for CT, the Gastrografin was drained from the pouch, and the pouch was refilled wi th normal saline. The Ames catheter was removed. Follow-up CT of the pelvis was performed. IMPRESSION: Dilated Virgie pouch, with anal stricture. No fluoroscopic evidence of fistula to the bladder. COMMENT: Quality ID 145: Final reports for procedures using fluoroscopy that document radiation exp osure indices, or exposure time and number of fluorographic images (if radiation exposure indices are not available) TECHNICAL DOCUMENTATION: JOB ID: [id number] [employer]- All Rights Reserved Reading location - IP/workstation name: [email or web address]
--- NOTE | 2018-05-08 11:41 | RADIOLOGY REPORT (SQ) ---
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 No IV or oral contrast. Images reviewed with soft tissue and bone windows. R econstructed coronal and sagittal MPR images reviewed. All images stored on PACS. All CT scanners at this facility use dose modulation, iterative reconstruction, and/or weight based d osing when appropriate to reduce radiation dose to as low as reasonably achievable (ALARA). [facility]: Dose Right [facility]: CareDose [facility]: Dose Right [facility]: Teradose 4D [facility]: [email or web address] RADIATION DOSE: CT Rad equipment meets quality standard of care and radiation dose reduction techniq ues were employed. CTDIvol: 3.1 mGy. DLP: 118 mGy-cm. mGy. LIMITATIONS: None. FINDINGS: Study performed immediately post water-soluble contrast enema into the patient's Virgie pouch. There is no contrast extravasation from the pouch. No communication with the urinary bladder. Pouch is distended, similar in size compared to CT exams dating back to 12/08/2016. Suspect anal stri cture. Prostate is enlarged, 7 x 7 x 6 cm in size. No pelvic masses or adenopathy. Pelvic bones are intact . Right lower quadrant ileostomy. IMPRESSION: Distended fluid-filled core Virgie pouch does not communicate with the bladder. Suspe ct anal stricture TECHNICAL DOCUMENTATION: JOB ID: [id number] Quality ID # [id number]: Final reports with documentation of one or more dose reduction techniques (e.g., Au tomated exposure control, adjustment of the mA and/or kV according to patient size, use of iterative reconstruction technique) 2010 [employer]- All Rights Reserved Reading location - IP/workstation name: [email or web address]
== END ==
LOC: RAD 09:42
PROVIDERS: ATTEND Surgery
DX: K62.4 Stenosis of anus and rectum (principal); R18.8 Other ascites
CPT/HCPCS: 72192; 74270

== ENCOUNTER 2019-05-11 09:25 | Emergency (ER) | payer MEDICARE, OTHER ==
--- NOTE | 2019-05-11 09:36 | ER Document Report ---
ED Medical Screen (RME) - General Chief Complaint: Inability to Void Stated Complaint: URINARY PROBLEM Time Seen by Provider: 05/11/19 09:30 Primary Care Provider: JUAN A CUEVA MD [Primary Care Provider] - Follow up as needed Mode of Arrival: Ambulatory Information source: Patient Notes: Patient is an 84-year-old male presenting to the emergency department with what he reports as acute urinary retention. Patient reports no urine output since . He reports history of urinary retention in the past. Exam: Abdomen soft, mild tenderness to the lower abdomen. No obvious distention noted. Colostomy noted to right lower/mid quadrant. I have greeted and performed a rapid initial assessment of this patient. A comprehensive ED assessment and evaluation of the patient, analysis of test results and completion of the medical decision making process will be conducted by additional ED providers. I have specifically instructed the patient or family members with the patient to immediately return to any nursing staff should anything change in the patient's condition or with their chief complaint. This medical record was dictated with voice recognizing software. There may be grammatical, syntax errors that are unintended. TRAVEL OUTSIDE OF THE [place] IN LAST 30 DAYS: No - Related Data Allergies/Adverse Reactions: No Known Allergies Allergy (Verified 12/16/16 11:33) Past Medical History - Social History Chew tobacco use (# tins/day): No Frequency of alcohol use: None Drug Abuse: None - Past Medical History Cardiac Medical History: Reports: Hx Atrial Fibrillation, Hx Congestive Heart Failure, Hx Heart Attack, Hx Hypercholesterolemia - ON MEDS, Hx Hypertension - ON MEDS Denies: Hx Coronary Artery Disease, Hx Peripheral Vascular Disease, Hx Heart Murmur Pulmonary Medical History: Neurological Medical History: Denies: Hx Seizures Renal/ Medical History: Reports: Hx Benign Prostatic Hyperplasia. Denies: Hx End Stage Renal Disease, Hx Kidney Stones, Hx Peritoneal Dialysis Malignancy Medical History: GI Medical History: Reports: Hx Gastroesophageal Reflux Disease. Denies: Hx Crohn's Disease, Hx Hepatitis, Hx Hiatal Hernia, Hx Irritable Bowel, Hx Liver Failure, Hx Pancreatitis, Hx Ulcer Musculoskeltal Medical History: Infectious Medical History: Denies: Hx Hepatitis Past Surgical History: Reports: Hx Abdominal Surgery - ileostomy placement, Hx Bowel Surgery, Hx Cardiac Catheterization, Hx Carotid Endarterectomy - Right, Hx Cholecystectomy, Hx Ileostomy, Hx Urinary Tract Surgery - prostate, Other - Exploratory laparotomy with total colectomy and splenic biopsy,carotid enda. Denies: Hx Appendectomy, Hx Colostomy, Hx Coronary Artery Bypass Graft, Hx Gastric Bypass Surgery, Hx Herniorrhaphy, Hx Open Heart Surgery, Hx Pacemaker, Hx Tonsillectomy - Immunizations Hx Diphtheria, Pertussis, Tetanus Vaccination: Yes Physical Exam - Vital signs Vitals: Temp Pulse Resp BP Pulse Ox 97.5 F 76 16 140/69 H 98 05/11/19 09:29 05/11/19 09:29 05/11/19 09:29 05/11/19 09:29 05/11/19 09:29 Course - Vital Signs Vital signs: Temp Pulse Resp BP Pulse Ox 97.5 F 76 16 140/69 H 98 05/11/19 09:29 05/11/19 09:29 05/11/19 09:29 05/11/19 09:29 05/11/19 09:29 Doctor's Discharge - Discharge Referrals: JUAN A CUEVA MD [Primary Care Provider] - Follow up as needed
[2019-05-11 10:05] LABS: ABSOLUTE LYMPHOCYTES (AUTO) 0.8 10^3/uL (0.5-4.7); ABSOLUTE MONOCYTES (AUTO) 0.4 10^3/uL (0.1-1.4); BASOPHILS % (AUTO) 0.4 % (0-2); EOSINOPHILS % (AUTO) 0.8 % (0-6); HEMATOCRIT 35.2 % (37.9-51.0); HEMOGLOBIN 11.8 g/dL (13.5-17.0); LYMPHOCYTES % (AUTO) 15.9 % (13-45); MEAN CORPUSCULAR HEMOGLOBIN 32.5 pg (27.0-33.4); MEAN CORPUSCULAR HGB CONC 33.5 g/dL (32.0-36.0); MEAN CORPUSCULAR VOLUME 97 fl (80-97); MONOCYTES % (AUTO) 6.9 % (3-13); PLATELET COUNT 108 10^3/uL (150-450); RED BLOOD COUNT 3.63 10^6/uL (4.35-5.55); RED CELL DISTRIBUTION WIDTH 14.5 % (11.5-14.0); TOTAL CELLS COUNTED % (AUTO) 100 %; WHITE BLOOD COUNT 5.3 10^3/uL (4.0-10.5)
[2019-05-11 10:24] LABS: ALBUMIN 3.7 g/dL (3.5-5.0); ALKALINE PHOSPHATASE 75 U/L (38-126); ANION GAP 8 (5-19); ASPARTATE AMINO TRANSFERASE 25 U/L (17-59); BILIRUBIN,DIRECT 0.1 mg/dL (0.0-0.4); BILIRUBIN,TOTAL 0.5 mg/dL (0.2-1.3); BLOOD UREA NITROGEN 28 mg/dL (7-20); CARBON DIOXIDE 23 mmol/L (22-30); CHLORIDE 114 mmol/L (98-107); GLUCOSE 98 mg/dL (75-110); POTASSIUM 3.7 mmol/L (3.6-5.0); TOTAL PROTEIN 6.4 g/dL (6.3-8.2)
[2019-05-11 10:25] LABS: APPEARANCE,URINE SLIGHTLY-CLOUDY; BILIRUBIN,URINE NEGATIVE (NEGATIVE); COLOR,URINE YELLOW; GLUCOSE, URINE NEGATIVE (NEGATIVE); KETONES,URINE NEGATIVE (NEGATIVE); PROTEIN,URINE 30 mg/dL (NEGATIVE); URINE SPECIFIC GRAVITY 1.016; UROBILINOGEN,URINE NEGATIVE mg/dL (<2.0)
--- NOTE | 2019-05-11 10:33 | ER Document Report ---
Entered by JULIO LARSEN SCRIBE 05/11/19 1008 Acting as scribe for:TIFFANY JOHNSON MD ED GI/ - General Chief Complaint: Inability to Void Stated Complaint: URINARY PROBLEM Time Seen by Provider: 05/11/19 09:30 Primary Care Provider: JUAN A GREGORY MD [ACTIVE STAFF] - Follow up as needed Mode of Arrival: Ambulatory Information source: [facility] Records Notes: This 84-year-old male patient presents to the emergency department today with with complaints of urinary retention. Patient states he last urinated 2 nights ago prior to going to bed. Patient states he does not have any pain associated with this retention and he does not feel like his bladder is full. Patient states he has had the same fluid intake that he always does. Patient states that he has noticed a "lump in his right groin" at times. 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 Ileostomy bag in place with clear fluid in it that appears to be urine. PCP: Dr. Butler I did discuss the case with Dr. Gregory. He reports that the patient had total colectomy, with ileostomy. He had a Aggarwal's pouch. He states he thinks there is probably a mucocele there which has to be drained periodically. 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 Most recently in early March, the Aggarwal's pouch/mucocele was drained. Dr. Gregory recommends attempt to drain it again using lidocaine jelly, the little finger to reach up and and disrupt the wall the mucocele, and place a Malecot catheter for drainage. TRAVEL OUTSIDE OF THE [place] IN LAST 30 DAYS: No - Related Data Allergies/Adverse Reactions: No Known Allergies Allergy (Verified 12/16/16 11:33) Past Medical History - General Information source: Patient, [facility] Records - Social History Smoking Status: Former Smoker Cigarette use (# per day): No Chew tobacco use (# tins/day): No Frequency of alcohol use: None Drug Abuse: None Family History: Reviewed & Not Pertinent, Malignancy - Colon cancer Patient has suicidal ideation: No Patient has homicidal ideation: No - Past Medical History Cardiac Medical History: Reports: Hx Atrial Fibrillation, Hx Congestive Heart Failure, Hx Heart Attack, Hx Hypercholesterolemia - ON MEDS, Hx Hypertension - ON MEDS Pulmonary Medical History: Neurological Medical History: Renal/ Medical History: Reports: Hx Benign Prostatic Hyperplasia Malignancy Medical History: GI Medical History: Reports: Hx Gastroesophageal Reflux Disease Musculoskeletal Medical History: Past Surgical History: Reports: Hx Abdominal Surgery, Hx Bowel Surgery, Hx Cardiac Catheterization, Hx Carotid Endarterectomy - Right, Hx Cholecystectomy, Hx Ileostomy, Hx Urinary Tract Surgery - prostate, Other - Total colectomy due to sigmoid volvulus, splenic biopsy - Immunizations Hx Diphtheria, Pertussis, Tetanus Vaccination: Yes Hx Pneumococcal Vaccination: 06/12/12 Review of Systems - Review of Systems Constitutional: No symptoms reported EENT: No symptoms reported Cardiovascular: No symptoms reported Respiratory: No symptoms reported Gastrointestinal: No symptoms reported Genitourinary: See HPI, Retention. denies: Pain Male Genitourinary: No symptoms reported Musculoskeletal: No symptoms reported Skin: No symptoms reported Hematologic/Lymphatic: No symptoms reported Neurological/Psychological: No symptoms reported -: Yes All other systems reviewed and negative Physical Exam - Vital signs Vitals: Temp Pulse Resp BP Pulse Ox 97.5 F 76 16 140/69 H 98 05/11/19 09:29 05/11/19 09:29 05/11/19 09:29 05/11/19 09:29 05/11/19 09:29 - Notes Notes: Physical Exam: General: Alert, appears well. HEENT: Normocephalic. Atraumatic. PERRL. Extraocular movements intact. Oropharynx clear. Neck: Supple. Non-tender. Respiratory: No respiratory distress. Clear and equal breath sounds bilaterally. Cardiovascular: Regular rate and rhythm. Holosystolic murmur heard throughout the anterior chest. Abdominal: Abdomen is soft with positive bowel sounds. There is an ileostomy in the right lower quadrant. When the patient stands up and Valsalvas, there is a bulging in the right pelvic region suggesting a direct hernia, however I am not certain that it is bowel that herniates as opposed to just a weakness in the abdominal wall musculature. There is no hernia felt on digital examination of the inguinal canal. Back: No gross abnormalities. Extremities: Moves all four extremities. Upper extremities: Normal inspection. Normal ROM. Lower extremities: Normal inspection. No edema. Normal ROM. Neurological: Normal cognition. AAOx4. Normal speech. Psychological: Normal affect. Normal Mood. Skin: Warm. Dry. Normal color. Course - Re-evaluation Re-evalutation: 05/11/19 12:54 PROCEDURE: Digital anal exam was facilitated by instilling lidocaine jelly from the [employer]. Using the small finger, I was able to get past the anal stenosis and break up some membranes which were probably part of a mucocele. A 24 [place] Malecot drain was placed and approximately 900 mL's of liquid was drained. He has had approximately 1 L of normal saline IV. And he is putting out clear urine at this time. I cannot explain his history of no urine output for 2 days, but will leave the Ames catheter in with a leg bag so he can monitor his urine output. - Vital Signs Vital signs: Temp Pulse Resp BP Pulse Ox 97.5 F 76 16 140/69 H 98 05/11/19 09:29 05/11/19 09:29 05/11/19 09:29 05/11/19 09:29 05/11/19 09:29 - Laboratory Result Diagrams: 05/11/19 09:50 05/11/19 09:50 Laboratory results interpreted by me: 05/11/19 05/11/19 05/11/19 09:50 09:50 09:50 RBC 3.63 L Hgb 11.8 L Hct 35.2 L RDW 14.5 H Plt Count 108 L Chloride 114 H BUN 28 H Creatinine 2.45 H Est GFR ( Amer) 31 L Est GFR (MDRD) Non-Af 25 L Urine Protein 30 H Discharge - Discharge Clinical Impression: Mucocele, Dehydration, Right inguinal hernia Condition: Stable Disposition: HOME, SELF-CARE Additional Instructions: Approximately 900 mL's of liquid was drained from your rectal mucocele. Your lab work did suggest that you were dehydrated. I could not find an explanation for the history of no urine output in 2 days. We will leave the Ames catheter and attached to a leg bag. Drink plenty of fluids, and record the urine in the leg bag each time you empty it. Follow-up with [facility] Monday for recheck of your urine output, and your hernia. RETURN TO THE EMERGENCY ROOM IF ANY NEW OR WORSENING SYMPTOMS. Referrals: JUAN A GREGORY MD [ACTIVE STAFF] - 05/13/19 Scribe Attestation: 05/11/19 12:18 I personally performed the services described in the documentation, reviewed and edited the documentation which was dictated to the scribe in my presence, and it accurately records my words and actions. I personally performed the services described in the documentation, reviewed and edited the documentation which was dictated to the scribe in my presence, and it accurately records my words and actions.
[2019-05-11] MEDS ORDERED: LIDOCAINE 2% URO-JET 5 ML KIT MM ONE (10:35)
[2019-05-11] MEDS ORDERED: NORMAL SALINE 1000 ML 1,000 ML IV ONE (11:10)
[2019-05-11 13:10] VITALS: BP 139/64
== END 2019-05-11 13:15 | disposition home or self-care (01) ==
LOC: ER 09:25
DX: E86.0 Dehydration (principal); K40.90 Unilateral inguinal hernia, without obstruction or gangrene, not specified as recurrent; R33.9 Retention of urine, unspecified; I48.91 Unspecified atrial fibrillation; I50.9 Heart failure, unspecified; E78.00 Pure hypercholesterolemia, unspecified; I11.0 Hypertensive heart disease with heart failure; Z90.49 Acquired absence of other specified parts of digestive tract; Z93.2 Ileostomy status; I25.2 Old myocardial infarction
CPT/HCPCS: 99283; 96360; 51702; 36415; 85025; 80053; 81001; J7030; A9270; J3490

== ENCOUNTER 2019-06-21 08:51 | Emergency (ER) | payer MEDICARE, OTHER ==
--- NOTE | 2019-06-21 10:53 | ER Document Report ---
ED General - General Chief Complaint: Problem with Urinary Catheter Stated Complaint: URINARY PROBLEM Time Seen by Provider: 06/21/19 10:09 Primary Care Provider: YVON AVENDANO MD [Primary Care Provider] - Follow up as needed TRAVEL OUTSIDE OF THE [place] IN LAST 30 DAYS: No - HPI Notes: Patient is an 84-year-old male who presents emergency department for evaluation. He states his urinary catheter is leaking. The patient has had a urinary catheter since May 11. He was seen here, Ames catheter was placed at that time because he was having some retention issues. He was sent on to follow-up with surgery, then urology. The first urology appointment that he could get is on Monday the . The patient has had the same indwelling Ames catheter since then. He states yesterday he started developing an urge to urinate. He states that he did not have any urine in his Ames bag, but he had leaked urine everywhere. He denies any pain. No fevers or chills. No nausea or vomiting. - Related Data Allergies/Adverse Reactions: No Known Allergies Allergy (Verified 06/21/19 09:02) Home Medications: List reviewed, please see note Past Medical History - General Information source: Patient - Social History Smoking Status: Former Smoker Family History: Reviewed & Not Pertinent, Malignancy - Colon cancer Patient has suicidal ideation: No Patient has homicidal ideation: No - Past Medical History Cardiac Medical History: Reports: Hx Atrial Fibrillation, Hx Congestive Heart F ailure, Hx Heart Attack, Hx Hypercholesterolemia - ON MEDS, Hx Hypertension - ON MEDS Denies: Hx Coronary Artery Disease, Hx Peripheral Vascular Disease, Hx Heart Murmur Pulmonary Medical History: Neurological Medical History: Denies: Hx Seizures Renal/ Medical History: Reports: Hx Benign Prostatic Hyperplasia. Denies: Hx End Stage Renal Disease, Hx Kidney Stones, Hx Peritoneal Dialysis Malignancy Medical History: GI Medical History: Reports: Hx Gastroesophageal Reflux Disease. 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 Denies: Hx Appendectomy, Hx Colostomy, Hx Coronary Artery Bypass Graft, Hx Gastric Bypass Surgery, Hx Herniorrhaphy, Hx Open Heart Surgery, Hx Pacemaker, Hx Tonsillectomy - Immunizations Hx Diphtheria, Pertussis, Tetanus Vaccination: Yes Hx Pneumococcal Vaccination: 06/12/12 Review of Systems - Review of Systems Constitutional: No symptoms reported EENT: No symptoms reported Cardiovascular: No symptoms reported Respiratory: No symptoms reported Gastrointestinal: No symptoms reported Genitourinary: See HPI Male Genitourinary: No symptoms reported Musculoskeletal: No symptoms reported Skin: No symptoms reported Neurological/Psychological: No symptoms reported Physical Exam - Vital signs Vitals: Temp Pulse Resp BP Pulse Ox 97.4 F 72 18 141/57 H 100 06/21/19 08:55 06/21/19 08:55 06/21/19 08:55 06/21/19 08:55 06/21/19 08:55 - Notes Notes: Vital signs reviewed, please refer to chart. Head is normocephalic, atraumatic. Pupils equal round, reactive to light. Neck is supple without meningismus. Heart is regular rate and rhythm. Lungs are clear to auscultation bilaterally. Abdomen is soft, nontender, normoactive bowel sounds throughout. Ostomy with brown stool noted midabdomen. Patient with Ames catheter in place. No active leaking appreciated. The Ames leg bag is empty. This is a circumcised male, I do not appreciate any significant surrounding erythema or drainage. Extremities without cyanosis, clubbing. Posterior calves are nontender. Peripheral pulses are equal. Skin is warm and dry. Patient is awake, alert, neurological exam is nonfocal. Course - Re-evaluation Re-evalutation: 06/21/19 10:55 Patient presents to the emergency department for evaluation. He has had the same indwelling Ames catheter for approximately 6 weeks. He finally has urology follow-up on Monday. I believe it is appropriate that this catheter be changed. This was ordered. We will continue to monitor. 06/21/19 11:53 Patient is catheter replaced without difficulty. Urine noted to be draining immediately. Patient feels improved. He is to follow-up with urology as scheduled on Monday. - Vital Signs Vital signs: Temp Pulse Resp BP Pulse Ox 97.4 F 72 18 141/57 H 100 06/21/19 08:55 06/21/19 08:55 06/21/19 08:55 06/21/19 08:55 06/21/19 08:55 Discharge - Discharge Clinical Impression: Ames catheter problem Qualifiers: Encounter type: initial encounter Qualified Code(s): T83.9XXA - Unspecified complication of genitourinary prosthetic device, implant and graft, initial encounter Condition: Stable Disposition: HOME, SELF-CARE Instructions: Ames Catheter [facility] ([facility]) Additional Instructions: Follow-up with urology as scheduled on Monday. Continue Ames catheter care as previously instructed. Return to the emergency department with worsening or new concerning symptoms of any sort. Referrals: VYON AVENDANO MD [Primary Care Provider] - Follow up as needed
[2019-06-21 12:39] VITALS: BP 122/52
== END 2019-06-21 12:20 | disposition home or self-care (01) ==
LOC: ER 08:51
DX: T83.031A Leakage of indwelling urethral catheter, initial encounter (principal); Y84.6 Urinary catheterization as the cause of abnormal reaction of the patient, or of later complication, without mention of misadventure at the time of the procedure; R33.9 Retention of urine, unspecified; Z87.891 Personal history of nicotine dependence; I10 Essential (primary) hypertension
CPT/HCPCS: 51702; 99283

== ENCOUNTER 2019-08-27 10:13 | Emergency (ER) | payer MEDICARE, OTHER ==
--- NOTE | 2019-08-27 10:44 | ER Document Report ---
ED Medical Screen (RME) - General Chief Complaint: Urinary Retention Stated Complaint: TROUBLE VOIDING Time Seen by Provider: 08/27/19 10:42 Primary Care Provider: YVON AVENDANO MD [Primary Care Provider] - Follow up as needed Mode of Arrival: Ambulatory Information source: Patient Notes: 84-year-old male presents to ED for no urinary voiding since Monday. He states he had urged multiple times but never goes. He states he has had this problem in the past. We will order a urine and a cath if his bladder scan shows more than 300 cc of urine. I have greeted and performed a rapid initial assessment of this patient. A comprehensive ED assessment and evaluation of the patient, analysis of test results and completion of medical decision making process will be conducted by an additional ED providers. TRAVEL OUTSIDE OF THE [place] IN LAST 30 DAYS: No - Related Data Allergies/Adverse Reactions: No Known Allergies Allergy (Verified 06/21/19 09:02) Home Medications: multivitamin, b12, flomax, pravastatin, aspirin Past Medical History - Social History Chew tobacco use (# tins/day): No Frequency of alcohol use: None Drug Abuse: None - Past Medical History Cardiac Medical History: Reports: Hx Atrial Fibrillation, Hx Congestive Heart Failure, Hx Heart Attack, Hx Hypercholesterolemia - ON MEDS, Hx Hypertension - ON MEDS Denies: Hx Coronary Artery Disease, Hx Peripheral Vascular Disease, Hx Heart Murmur Pulmonary Medical History: Neurological Medical History: Denies: Hx Seizures Renal/ Medical History: Reports: Hx Benign Prostatic Hyperplasia. Denies: Hx End Stage Renal Disease, Hx Kidney Stones, Hx Peritoneal Dialysis Malignancy Medical History: GI Medical History: Reports: Hx Gastroesophageal Reflux Disease. 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 Denies: Hx Appendectomy, Hx Colostomy, Hx Coronary Artery Bypass Graft, Hx Gastric Bypass Surgery, Hx Herniorrhaphy, Hx Open Heart Surgery, Hx Pacemaker, Hx Tonsillectomy - Immunizations Hx Diphtheria, Pertussis, Tetanus Vaccination: Yes Physical Exam - Vital signs Vitals: Temp Pulse Resp BP Pulse Ox 97.8 F 66 16 165/64 H 99 08/27/19 10:08/27/19 10:08/27/19 10:08/27/19 10:08/27/19 10:26 Course - Vital Signs Vital signs: Temp Pulse Resp BP Pulse Ox 97.8 F 66 16 165/64 H 99 08/27/19 10:08/27/19 10:08/27/19 10:08/27/19 10:08/27/19 10:26 Doctor's Discharge - Discharge Referrals: YVON AVENDANO MD [Primary Care Provider] - Follow up as needed
[2019-08-27 12:36] LABS: ALBUMIN 3.4 g/dL (3.5-5.0); ALKALINE PHOSPHATASE 66 U/L (38-126); ANION GAP 5 (5-19); ASPARTATE AMINO TRANSFERASE 21 U/L (17-59); BILIRUBIN,TOTAL 0.4 mg/dL (0.2-1.3); BLOOD UREA NITROGEN 30 mg/dL (7-20); CALCIUM 9.7 mg/dL (8.4-10.2); CARBON DIOXIDE 21 mmol/L (22-30); CHLORIDE 115 mmol/L (98-107); GLUCOSE 91 mg/dL (75-110); POTASSIUM 4.3 mmol/L (3.6-5.0)
[2019-08-27] MEDS ORDERED: LIDOCAINE 2% URO-JET 5 ML KIT MM ONE (12:47)
[2019-08-27 13:33] LABS: ABSOLUTE LYMPHOCYTES (AUTO) 0.8 10^3/uL (0.5-4.7); ABSOLUTE MONOCYTES (AUTO) 0.4 10^3/uL (0.1-1.4); ABSOLUTE NEUT (AUTO) 3.3 10^3/uL (1.7-8.2); BASOPHILS % (AUTO) 0.4 % (0-2); EOSINOPHILS % (AUTO) 0.7 % (0-6); HEMATOCRIT 33.5 % (37.9-51.0); HEMOGLOBIN 11.8 g/dL (13.5-17.0); LYMPHOCYTES % (AUTO) 18.5 % (13-45); MEAN CORPUSCULAR HGB CONC 35.1 g/dL (32.0-36.0); MEAN CORPUSCULAR VOLUME 94 fl (80-97); PLATELET COUNT 101 10^3/uL (150-450); RED BLOOD COUNT 3.56 10^6/uL (4.35-5.55); RED CELL DISTRIBUTION WIDTH 13.7 % (11.5-14.0); SEGMENTED NEUTROPHILS % (AUTO) 72.4 % (42-78); TOTAL CELLS COUNTED % (AUTO) 100 %; WHITE BLOOD COUNT 4.5 10^3/uL (4.0-10.5)
[2019-08-27] MEDS ORDERED: LORAZEPAM INJ 2 MG/1 ML VIAL IV ONE (14:20)
[2019-08-27] MEDS ORDERED: MORPHINE SULFATE 10 MG/ML INJ IV ONE (14:21)
--- NOTE | 2019-08-27 15:45 | ER Document Report ---
ED General - General Chief Complaint: Urinary Retention Stated Complaint: TROUBLE VOIDING Time Seen by Provider: 08/27/19 10:42 Primary Care Provider: YVON AVENDANO MD [Primary Care Provider] - Follow up as needed Mode of Arrival: Ambulatory TRAVEL OUTSIDE OF THE [place] IN LAST 30 DAYS: No - HPI Notes: Patient is an 84-year-old male with a history of ileostomy, Virgie's pouch, who presents the emergency department for evaluation of urinary retention. The patient has had this in the past. He states he has not had any urinary output in the last 48 hours. He has not really felt the urge to urinate. 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 It was being stripped manually by surgery, but he was since referred on to urology. He states that the urologist will not help with this, so he presents to the ER for further evaluation. He denies any fevers or chills. No nausea or vomiting. He does state that he has a small urge to urinate now, and is able to urinate about 15 cc of yellow urine. - Related Data Allergies/Adverse Reactions: No Known Allergies Allergy (Verified 06/21/19 09:02) Home Medications: multivitamin, b12, flomax, pravastatin, aspirin Past Medical History - General Information source: Patient - Social History Smoking Status: Never Smoker Chew tobacco use (# tins/day): No Frequency of alcohol use: None Drug Abuse: None Family History: Reviewed & Not Pertinent, Malignancy - Colon cancer Patient has suicidal ideation: No Patient has homicidal ideation: No - Past Medical History Cardiac Medical History: Reports: Hx Atrial Fibrillation, Hx Congestive Heart Failure, Hx Heart Attack, Hx Hypercholesterolemia - ON MEDS, Hx Hypertension - ON MEDS Denies: Hx Coronary Artery Disease, Hx Peripheral Vascular Disease, Hx Heart Murmur Pulmonary Medical History: Neurological Medical History: Denies: Hx Seizures Renal/ Medical History: Reports: Hx Benign Prostatic Hyperplasia. Denies: Hx End Stage Renal Disease, Hx Kidney Stones, Hx Peritoneal Dialysis Malignancy Medical History: GI Medical History: Reports: Hx Gastroesophageal Reflux Disease. 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 Denies: Hx Appendectomy, Hx Colostomy, Hx Coronary Artery Bypass Graft, Hx Gastric Bypass Surgery, Hx Herniorrhaphy, Hx Open Heart Surgery, Hx Pacemaker, Hx Tonsillectomy - Immunizations Hx Diphtheria, Pertussis, Tetanus Vaccination: Yes Hx Pneumococcal Vaccination: 06/12/12 Review of Systems - Review of Systems Genitourinary: See HPI -: Yes All other systems reviewed and negative Physical Exam - Vital signs Vitals: Temp Pulse Resp BP Pulse Ox 97.8 F 66 16 165/64 H 99 08/27/19 10:08/27/19 10:08/27/19 10:08/27/19 10:08/27/19 10:26 - Notes Notes: Is an 84-year-old gentleman appears his stated age in acute distress. Is normocephalic atraumatic, pupils are equal round, reactive to light. Onychosis moist. Neck is supple with out meningismus. Heart regular rate and rhythm, lungs are pressures bilaterally. Abdomen soft. He has an ileostomy with liquid brown stool noted in the right abdomen. No surrounding erythema. Rectal exam is performed. He does have some aspect of rectal stenosis. Extremities without cyanosis or clubbing, skin is warm and dry. Course - Re-evaluation Re-evalutation: 08/27/19 15:44 Patient presents emergency department for evaluation. Laboratory investigations were ordered through triage. I did review this patient's past notes. 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 Decision was made to proceed with this. I did give the patient a small amount of pain medication, anxiety lytic. Using Urojet lidocaine jelly, the area was anesthetized. Using the pinky finger, the rectum was entered. I did sweep to feel for any membranous changes. A small amount of fluid, approximately 10 cc, bloody, pale pink fluid was drained. I did add a Malecot catheter, and no further drainage was obtained. This was reattempted without change in results. At this point, I am unsure as to whether or not there is just no further to drain, but he has not had any further urinary output. I do not feel comfortable with the third attempt. I have consulted Dr. Osorio, of surgery, for further evaluation of this patient. 08/27/19 17:54 Dr. Osorio came down. He was able to break up the mucocele wall, drained over 600 cc of fluid. Patient tolerated this well. The patient will be discharged, he is to follow-up with Dr. Gregory in the surgical clinic. - Vital Signs Vital signs: Temp Pulse Resp BP Pulse Ox 97.8 F 66 16 165/64 H 99 08/27/19 10:26 08/27/19 10:26 08/27/19 10:26 08/27/19 10:26 08/27/19 10:26 - Laboratory Result Diagrams: 08/27/19 13:15 08/27/19 12:01 Laboratory results interpreted by me: 08/27/19 08/27/19 12:01 13:15 RBC 3.56 L Hgb 11.8 L Hct 33.5 L Plt Count 101 L Chloride 115 H Carbon Dioxide 21 L BUN 30 H Creatinine 2.46 H Est GFR ( Amer) 31 L Est GFR (MDRD) Non-Af 25 L Total Protein 6.0 L Albumin 3.4 L Discharge - Discharge Clinical Impression: mucocele Condition: Stable Disposition: HOME, SELF-CARE Additional Instructions: Continue regular care at home as previously described by surgery. Call the surgical clinic and follow-up with Dr. Gregory next week. Return to the emergency department for worsening or new concerning symptoms of any sort. Referrals: YVON AVENDANO MD [Primary Care Provider] - Follow up as needed
--- NOTE | 2019-08-27 17:45 | Operative Report ---
Operative Report DATE OF SURGERY: 08/27/19 PREOPERATIVE DIAGNOSIS: Blockadge of mucocele rectal pouch area. Post creation of rectal pouch and ileostomy POSTOPERATIVE DIAGNOSIS: Same OPERATION: Digital rectal dilatation with breakdown of adhesions and evacuation of mucocele using a 24 Japanese chest tube SURGEON: TEX MCKEON ANESTHESIA: Other TISSUE REMOVED OR ALTERED: About thousand cc of clear to slightly cloudy fluid from rectal mucocele pouch ESTIMATED BLOOD LOSS: 2 cc QUANTITATIVE BLOOD LOSS: 2 INTRAOPERATIVE FINDINGS: There was a tight stenosis of the anal area with further occlusion of the anal pouch with fleshy adhesions PROCEDURE: Patient was placed on left lateral position with the knees bent towards his chest. Digital rectal examination was done and noted to have a severe stenosis and some adhesions that were eventually lysed with the finger. There was a gush of fluid at least about 500cc of clear fluid. Next a 24 Japanese child welfare worker chest tube was then inserted through the rectum towards the area of the pouch and further evacuation of at least another 500 cc of clear to cloudy fluid and slightly bloody was evacuated with the patient's big relief. Patient tolerated procedure well.
[2019-08-27 18:32] VITALS: BP 124/56
== END 2019-08-27 18:00 | disposition home or self-care (01) ==
LOC: ER 10:13
PROC: 0D7 Gastrointestinal System, Dilation (ICD-10-PCS; principal; 2019-08-27)
DX: K62.89 Other specified diseases of anus and rectum (principal); R33.9 Retention of urine, unspecified; Z93.2 Ileostomy status; Z79.899 Other long term (current) drug therapy; I48.91 Unspecified atrial fibrillation; I50.9 Heart failure, unspecified; I25.2 Old myocardial infarction; I11.0 Hypertensive heart disease with heart failure
CPT/HCPCS: 45910; 99284; 96374; 96375; 36415; 85025; 80053; J2270; J2060; A9270; J3490

== ENCOUNTER 2019-08-31 09:12 | Emergency (ER) | payer MEDICARE, OTHER ==
--- NOTE | 2019-08-31 09:28 | ER Document Report ---
ED Medical Screen (RME) - General Chief Complaint: Urinary Problem Stated Complaint: URINARY PROBLEM Time Seen by Provider: 08/31/19 09:21 Primary Care Provider: YVON AVENDANO MD [Primary Care Provider] - Follow up as needed Cannot obtain history due to: Other - This 84-year-old male presented to the emergency room today stating he has had inability to urinate which is been ongoing over the course of the last week he was at a urologist office on when they did a straight cath he had with the patient describes about 8 ounces of urine output. TRAVEL OUTSIDE OF THE [place] IN LAST 30 DAYS: No - Related Data Allergies/Adverse Reactions: No Known Allergies Allergy (Verified 06/21/19 09:02) Past Medical History - Past Medical History Cardiac Medical History: Reports: Hx Atrial Fibrillation, Hx Congestive Heart Failure, Hx Heart Attack, Hx Hypercholesterolemia - ON MEDS, Hx Hypertension - ON MEDS Denies: Hx Coronary Artery Disease, Hx Peripheral Vascular Disease, Hx Heart Murmur Pulmonary Medical History: Neurological Medical History: Denies: Hx Seizures Renal/ Medical History: Reports: Hx Benign Prostatic Hyperplasia. Denies: Hx End Stage Renal Disease, Hx Kidney Stones, Hx Peritoneal Dialysis Malignancy Medical History: GI Medical History: Reports: Hx Gastroesophageal Reflux Disease. 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 Denies: Hx Appendectomy, Hx Colostomy, Hx Coronary Artery Bypass Graft, Hx Gastric Bypass Surgery, Hx Herniorrhaphy, Hx Open Heart Surgery, Hx Pacemaker, Hx Tonsillectomy - Immunizations Hx Diphtheria, Pertussis, Tetanus Vaccination: Yes Physical Exam - Vital signs Vitals: Temp Pulse Resp BP Pulse Ox 97.5 F 77 20 148/66 H 99 08/31/19 09:16 08/31/19 09:16 08/31/19 09:16 08/31/19 09:16 08/31/19 09:16 Course - Vital Signs Vital signs: Temp Pulse Resp BP Pulse Ox 97.5 F 77 20 148/66 H 99 08/31/19 09:16 08/31/19 09:16 08/31/19 09:16 08/31/19 09:16 08/31/19 09:16 Doctor's Discharge - Discharge Referrals: YVON AVENDANO MD [Primary Care Provider] - Follow up as needed
[2019-08-31 10:16] LABS: ABSOLUTE LYMPHOCYTES (AUTO) 0.8 10^3/uL (0.5-4.7); ABSOLUTE MONOCYTES (AUTO) 0.3 10^3/uL (0.1-1.4); ABSOLUTE NEUT (AUTO) 3.3 10^3/uL (1.7-8.2); BASOPHILS % (AUTO) 0.5 % (0-2); EOSINOPHILS % (AUTO) 0.8 % (0-6); HEMATOCRIT 33.8 % (37.9-51.0); HEMOGLOBIN 11.6 g/dL (13.5-17.0); LYMPHOCYTES % (AUTO) 17.4 % (13-45); MEAN CORPUSCULAR HEMOGLOBIN 32.6 pg (27.0-33.4); MEAN CORPUSCULAR HGB CONC 34.2 g/dL (32.0-36.0); MEAN CORPUSCULAR VOLUME 95 fl (80-97); MONOCYTES % (AUTO) 6.7 % (3-13); PLATELET COUNT 110 10^3/uL (150-450); RED BLOOD COUNT 3.55 10^6/uL (4.35-5.55); RED CELL DISTRIBUTION WIDTH 13.9 % (11.5-14.0); SEGMENTED NEUTROPHILS % (AUTO) 74.6 % (42-78); TOTAL CELLS COUNTED % (AUTO) 100 %; WHITE BLOOD COUNT 4.4 10^3/uL (4.0-10.5)
[2019-08-31 10:33] LABS: ALBUMIN 3.6 g/dL (3.5-5.0); ALKALINE PHOSPHATASE 73 U/L (38-126); ANION GAP 10 (5-19); ASPARTATE AMINO TRANSFERASE 26 U/L (17-59); BILIRUBIN,DIRECT 0.2 mg/dL (0.0-0.4); BILIRUBIN,TOTAL 0.5 mg/dL (0.2-1.3); BLOOD UREA NITROGEN 27 mg/dL (7-20); CALCIUM 9.8 mg/dL (8.4-10.2); CARBON DIOXIDE 20 mmol/L (22-30); CHLORIDE 110 mmol/L (98-107); GLUCOSE 103 mg/dL (75-110); POTASSIUM 4.1 mmol/L (3.6-5.0); TOTAL PROTEIN 6.4 g/dL (6.3-8.2)
[2019-08-31] MEDS ORDERED: NORMAL SALINE 250 ML IV ONE (10:58)
[2019-08-31 11:16] LABS: APPEARANCE,URINE SLIGHTLY-CLOUDY; BILIRUBIN,URINE NEGATIVE (NEGATIVE); COLOR,URINE YELLOW; GLUCOSE, URINE NEGATIVE (NEGATIVE); KETONES,URINE NEGATIVE (NEGATIVE); LEUKOCYTE ESTERASE,URINE NEGATIVE (NEGATIVE); NITRITE,URINE NEGATIVE (NEGATIVE); PROTEIN,URINE 30 mg/dL (NEGATIVE); URINE SPECIFIC GRAVITY 1.011; UROBILINOGEN,URINE NEGATIVE mg/dL (<2.0)
--- NOTE | 2019-08-31 13:11 | RADIOLOGY REPORT (SQ) ---
EXAM DESCRIPTION: U/S ABDOMEN LIMITED W/O DOP COMPLETED DATE/TIME: 08/31/2019 12:48 pm REASON FOR STUDY: urinary obstruction COMPARISON: None. TECHNIQUE: Dynamic and static grayscale images acquired of the abdomen and recorded on PACS. Additio nal selected color Doppler and spectral images recorded. Note: Exam does not meet criteria for a complete duplex/doppler study LIMITATIONS: Study limited due to acoustical interference from fat or from air in the bowel. FINDINGS: PANCREAS: Obscured. LIVER: Echotexture is coarse with increased echogenicity consistent with fatty infiltration. LIVER VASCULATURE: Normal directional flow of the main portal vein and hepatic veins. GALLBLADDER: Surgically absent. ULTRASOUND-DETECTED ABDI'S SIGN: Not applicable. INTRAHEPATIC DUCTS AND COMMON DUCT: CBD and intrahepatic ducts normal caliber. No filling defects. INFERIOR VENA CAVA: Normal flow. AORTA: No aneurysm. RIGHT KIDNEY: Normal size. 3.5 cm lower pole cyst. No solid or suspicious masses. No hydroneph rosis. No calcifications. LEFT KIDNEY: Normal size. 1.7 cm lower pole cyst. No solid or suspicious masses. Mild dilatati on of the renal pelvis. No calcifications. SPLEEN:14 cm. No solid masses. PERITONEAL AND PLEURAL SPACES: No ascites or effusions. OTHER: No other significant finding. IMPRESSION: Mild left hydronephrosis. Mild splenomegaly. TECHNICAL DOCUMENTATION: JOB ID: [id number] [employer]- All Rights Reserved Reading location - IP/workstation name: [email or web address]
[2019-08-31] MEDS ORDERED: CIPROFLOXACIN HCL 500 MG TABLET PO ONE (13:22)
[2019-08-31 13:52] VITALS: BP 136/72
--- NOTE | 2019-08-31 16:01 | ER Document Report ---
Entered by DAMIAN AMADOR SCRIBE 08/31/19 1054 Acting as scribe for:KUN FOOTE MD ED General - General Chief Complaint: Urinary Problem Stated Complaint: URINARY PROBLEM Time Seen by Provider: 08/31/19 09:21 Primary Care Provider: JUAN A CUEVA MD [ACTIVE STAFF] - Follow up as needed YVON AVENDANO MD [Primary Care Provider] - Follow up as needed Information source: Patient Notes: This 84 year old male patient presents to the emergency department today with complaints of having trouble urinating since x6 days ago. Patient states he has the urge to urinate but is unable to fully relieve himself. Patient states he had a bag put in June, and needs to see his Doctor to empty fluid each month. Patient states he visited the emergency department x4 days ago for the same problem and still had trouble urinating. Patient states he also saw a Urologist x2 days ago. Patient states he has been drinking fluid and denies back pain. TRAVEL OUTSIDE OF THE [place] IN LAST 30 DAYS: No - Related Data Allergies/Adverse Reactions: No Known Allergies Allergy (Verified 08/31/19 09:28) Past Medical History - General Information source: Patient - Social History Smoking Status: Never Smoker Cigarette use (# per day): No Chew tobacco use (# tins/day): No Frequency of alcohol use: None Drug Abuse: None Family History: Reviewed & Not Pertinent, Malignancy - Colon cancer Patient has suicidal ideation: No Patient has homicidal ideation: No - Past Medical History Cardiac Medical History: Reports: Hx Atrial Fibrillation, Hx Congestive Heart Failure, Hx Heart Attack, Hx Hypercholesterolemia - ON MEDS, Hx Hypertension - ON MEDS, Hx Heart Murmur Pulmonary Medical History: Neurological Medical History: Renal/ Medical History: Reports: Hx Benign Prostatic Hyperplasia Malignancy Medical History: GI Medical History: Reports: Hx Gastroesophageal Reflux Disease Musculoskeletal Medical History: Past Surgical History: Reports: Hx Abdominal Surgery, Hx Bowel Surgery, Hx Cardiac Catheterization, Hx Carotid Endarterectomy - Right, Hx Cholecystectomy, Hx Ileostomy, Hx Urinary Tract Surgery - prostate, Other - 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 denies: Back pain Skin: No symptoms reported Hematologic/Lymphatic: No symptoms reported Neurological/Psychological: No symptoms reported -: Yes All other systems reviewed and negative Physical Exam - Vital signs Vitals: Temp Pulse Resp BP Pulse Ox 97.5 F 77 20 148/66 H 99 08/31/19 09:16 08/31/19 09:16 08/31/19 09:16 08/31/19 09:16 08/31/19 09:16 - General General appearance: Appears well, Alert In distress: Mild - HEENT Head: Normocephalic, Atraumatic Eyes: Normal Pupils: PERRL Nasal: Other - Swollen turbinates. Clear mucous. Pharynx: Normal - Respiratory Respiratory status: No respiratory distress Chest status: Nontender Breath sounds: Normal Chest palpation: Normal - Cardiovascular Murmur: Yes Systolic murmur grade 1-6: 3 - Abdominal Inspection: Other - Leg bag is collecting clear yellow fluid. Distension: No distension Bowel sounds: Normal Tenderness: Nontender - Back Back: Normal, Nontender - Extremities General upper extremity: Normal inspection. No: Edema General lower extremity: Normal inspection. No: Edema - Neurological Neuro grossly intact: Yes Cognition: Normal Orientation: AAOx4 - Psychological Associated symptoms: Normal affect, Normal mood - Skin Skin Temperature: Warm Skin Moisture: Dry Skin Color: Normal Course - Re-evaluation Re-evalutation: resting comfortable. Ames cath draining clear yellow urine. 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 Discharge - Discharge Clinical Impression: Urinary outflow obstruction Condition: Stable Disposition: HOME, SELF-CARE Additional Instructions: Urinary Retention Urinary retention is inability to empty the bladder. It can result from a urine infection, or from mechanical problems such as an enlarged prostate gland or swelling of the urethra. Drugs or alcohol can also lead to urine retention. The condition is usually treated by passage of a catheter. If the physician thinks the problem will continue, the catheter may be left in place for a few days. Sometimes drugs are used to stimulate the bladder if the physician feels that inadequate bladder contraction is the cause. If the condition leading to the retention is a chronic one, such as an enlarged prostate, you will be referred to a specialist for further care. Call the physician or return if you develop fever, flank or back pain, pain on urination, or recurrent difficulty passing the urine. FOLLOW UP WITH UROLOGIST TO DETERMINE TIME TO REMOVE URINARY CATHETER. Referrals: YVON AVENDANO MD [Primary Care Provider] - Follow up as needed JUAN A CUEVA MD [ACTIVE STAFF] - Follow up as needed I personally performed the services described in the documentation, reviewed and edited the documentation which was dictated to the scribe in my presence, and it accurately records my words and actions.
== END 2019-08-31 13:49 | disposition home or self-care (01) ==
LOC: ER 09:12
DX: N13.9 Obstructive and reflux uropathy, unspecified (principal); N13.30 Unspecified hydronephrosis; R39.15 Urgency of urination; R09.89 Other specified symptoms and signs involving the circulatory and respiratory systems; I10 Essential (primary) hypertension
CPT/HCPCS: 99284; 96360; 96361; 51702; 36415; 85025; 80053; 81001; 76705; A9270; J7050